=== PATIENT | male | born 1935 | race Two or more races ===

== ENCOUNTER 2016-10-30 07:21 | Inpatient (IN) | payer OTHER ==
[2016-10-30] MEDS ORDERED: FUROSEMIDE 40 MG/4 ML INJECTABLE VIAL IVPB ONE (07:54)
[2016-10-30] MEDS ORDERED: ASPIRIN 325 MG ENTERIC COATED TABLET (FP) PO ONE (07:57)
[2016-10-30] MEDS: NITROGLYCERIN 25MG/D5W 250ML 250 ML IVPB SCH ×2 (08:00→17:55)
[2016-10-30 08:02] VITALS: BMI 33.7
--- NOTE | 2016-10-30 08:03 | PDOC ---
History of Present Illness - General Chief Complaint: Pain Stated Complaint: ABD PAIN Time Seen by Provider: 10/30/16 07:49 History Source: Patient Exam Limitations: Language Barrier - History of Present Illness Initial Comments: 10/30/16 07:58 81 yo M with PMHx of CHF, HTN, CAD(s/p stents x2 2007), and Afib(on coumadin) presents with one week h/o increase shortness of breath. He states that for the past week he has become increasing short of breath to the point where he is SOB at rest. No alleviating factors and aggrivated by exertion and lying down. Accompanied by cough productive of white frothy sputum. His primary and cardiology docs are in [place].Denies CP, BHATTI, abd.pain, urinary symptoms, N/V. Timing/Duration: 1 week Severity: moderate Modifying Factors: improves with: rest Associated Symptoms: reports: cough Aspirin Received prior to arrival: Yes: unknown Past History - Travel Traveled outside of the country in the last 30 days: No Close contact w/someone who was outside of country & ill: No - Past Medical History Allergies/Adverse Reactions: Allergies Allergy/AdvReac Type Severity Reaction Status Date / Time No Known Allergies Allergy Verified 10/30/16 07:42 Home Medications: Ambulatory Orders Unobtainable [Unobtainable] 10/30/16 Cardiac Disorders: Yes CHF: Yes HTN: Yes - Surgical History Cardiac Surgery: Yes (stent) - Psycho/Social/Smoking Cessation Hx Anxiety: No Suicidal Ideation: No Smoking History: Never smoked Have you smoked in the past 12 months: No Information on smoking cessation initiated: No Hx Alcohol Use: No Drug/Substance Use Hx: No Substance Use Type: None Review of Systems - Review of Systems Able to Perform ROS?: Yes Is the patient limited Greek proficient: Yes Constitutional: No: Symptoms Reported HEENTM: No: Symptoms Reported Respiratory: Yes: Cough, Orthopnea, SOB with Exertion Cardiac (ROS): Yes: See HPI *Physical Exam - Vital Signs Last Vital Signs Temp Pulse Resp BP Pulse Ox 98.3 F 76 18 208/100 93 L 10/30/16 07:25 10/30/16 07:25 10/30/16 07:25 10/30/16 07:25 10/30/16 07:25 - Physical Exam General Appearance: Yes: Mild Distress HEENT: positive: EOMI, EDILMA Neck: positive: Supple Respiratory/Chest: positive: Decreased Breath Sounds, Crackles. negative: Wheezing Cardiovascular: positive: JVD, Tachycardia, Irregularly Irregular Vascular Pulses: Dorsalis-Pedis (R): 2+, Doralis-Pedis (L): 2+ Gastrointestinal/Abdominal: positive: Normal Bowel Sounds, Flat, Soft Integumentary: positive: Normal Color, Dry, Warm Neurologic: positive: Alert, Normal Mood/Affect Heart Score/ECG Review #1 General ECG Interpretation: Normal Intervals Compared to previous ECG there are: Previous ECG unavail 10/30/16 08:35 Normal Rate (afib at 71, LVH), Normal Intervals, No acute ischemic changes (ST strain pattern v4-v6, no ERIC) - ECG Intrepretation Rhythm: Irregularly Irregular - [place]: Normal - ECG Impressions Ischemic Changes: No ED Treatment Course - LABORATORY CBC & Chemistry Diagram: 10/30/16 08:06 10/30/16 08:06 Medical Decision Making - Medical Decision Making 10/30/16 08:24 81 yo M with PMHx of CHF, CAD(s/p stents x2 2007), and Afib(on coumadin) presents with acute exacerbation of CHF. Will order stat labs- cbc, cmp,ua, pt/ inr, trops. CXR ordered. r/o ACS and infection. ED MEDS- ASA, nitro drip 40mcg/min, Lasix 40 mg IV, supplemental O2 Plan- admit 10/30/16 09:02 Laboratory Tests 10/30/16 10/30/16 08:06 08:06 INR 1.39 H Creatinine 1.7 H Troponin I 1.68 H* B-Natriuretic Peptide 75499.50 H * First set of trops(+)- will start heparin drip * INR sub-therapeutic. * BNP elevated - confirms CHF * Cr elevated - no baseline -awaiting UA *DC/Admit/Observation/Transfer Diagnosis at time of Disposition: Elevated troponin level CHF (congestive heart failure) Qualifiers: Congestive heart failure type: unspecified congestive heart failure type Congestive heart failure chronicity: acute on chronic Qualified Code(s): I50.9 - Heart failure, unspecified - Discharge Dispostion Admit: Yes - Referrals Referrals: Artem Weiner [Primary Care Provider] -
--- NOTE | 2016-10-30 08:08 | PDOC ---
Attending Attestation - Resident Resident Name: Josh Montelongo - ED Attending Attestation I have performed the following: I have examined & evaluated the patient, The case was reviewed & discussed with the resident, I agree w/resident's findings & plan, Exceptions are as noted - HPI HPI: 10/30/16 08:07 81-year-old male with history of CAD status post stent in the past, possible CHF on Lasix, no known COPD presents with one week of progressive shortness of breath and intermittent chest pressure. - Physicial Exam PE: 10/30/16 08:08 Hypertensive, O2 sat 90-93% on 2 L, afebrile. Alert and speaking full sentences Positive JVD Bilateral, bibasilar crackles - Critical Care Time Total Critical Care Time: 30 Critical Care Statement: The care of this patient involved high complexity decision making to prevent further life threatening deterioration of the patient 's condition and/or to evalute & treat vital organ system(s) failure or risk of failure. - Medical Decision Making 10/30/16 08:26 Patient seen and evaluated with the resident. I agree with the overall evaluation, assessment, and management with the following summary of visit: 81-year-old male with history of hypertension and high cholesterol presents with progressive shortness of breath and chest pain most concerning for CHF exacerbation, rule out ACS. Age of fibrillation but rate controlled. Rule out underlying infectious process. Labs, EKG Chest x-ray Supplemental oxygen, nitroglycerin drip, diuresis, aspirin Admission 10/30/16 09:44 + troponin. started on hep gtt. Cardiology consulted, will admit to tele. Breathing much improved after O2 and nitro. VS improved, comfortable now. Heart Score/ECG Review #1 ECG reviewed & interpreted by me at: 07:42 General ECG Interpretation: Normal Rate (afib at 71, LVH), Normal Intervals, No acute ischemic changes (ST strain pattern v4-v6, no ERIC)
[2016-10-30] MEDS ORDERED: NITROGLYCERIN 25MG/D5W 250ML 250 ML IVPB ONE ×2 (08:10→17:54)
[2016-10-30] MEDS ORDERED: ASPIRIN 325 MG ENTERIC COATED TABLET (FP) ONE (08:10)
[2016-10-30] MEDS ORDERED: FUROSEMIDE 40 MG/4 ML INJECTABLE VIAL ONE ×2 (08:10→15:20)
[2016-10-30 08:15] LABS: BASOPHIL 0.8 % (0-2.0); EOSINOPHIL 0.3 % (0-4.5); MCH 27.7 pg (25.7-33.7); MCHC 32.5 g/dl (32.0-35.9); MEAN CELL VOLUME 85.1 fl (80-96); MEAN PLT VOLUME 9.1 fl (7.5-11.1); PLATELET COUNT 112 K/MM3 (134-434); RDW 15.3 % (11.9-15.9); WHITE BLOOD COUNT 6.9 K/mm3 (4.0-10.0)
[2016-10-30 08:28] LABS: INR 1.39 (0.82-1.09); PROTHROMBIN TIME (PATIENT) 15.4 SEC (9.98-11.88)
[2016-10-30 08:39] LABS: ALBUMIN 3.3 g/dl (3.4-5.0); BILIRUBIN,TOTAL 1.5 mg/dL (0.2-1.0); CALCIUM 8.2 mg/dL (8.5-10.1); COCKROFT - GAULT 37.18; CREATININE 1.7 mg/dL (0.7-1.3); TOT PROT 6.6 g/dl (6.4-8.2)
[2016-10-30 08:56] LABS: TROPONIN I 1.68 ng/ml (0.00-0.05)
[2016-10-30] MEDS ORDERED: HEPARIN NA (PORCINE) 5,000 UNITS/ML 1ML VIAL IVPUSH PRN ×2 (09:00)
[2016-10-30] MEDS ORDERED: HEPARIN INFUSION - 500 ML IVPB ONE (09:11)
[2016-10-30 09:12] LABS: URINE APPEARANCE CLEAR; URINE BILIRUBIN NEGATIVE (NEGATIVE); URINE BLOOD NEGATIVE (NEGATIVE); URINE COLOR COLORLESS; URINE GLUCOSE (UA) NEGATIVE (NEGATIVE); URINE KETONE NEGATIVE (NEGATIVE); URINE LEUK ESTERASE NEGATIVE (NEGATIVE); URINE NITRITE NEGATIVE (NEGATIVE); URINE UROBILINOGEN NEGATIVE E.U./dl (0.2-1.0)
[2016-10-30 09:16] LABS: URINE PROTEIN 1+ (NEGATIVE)
[2016-10-30] MEDS: HEPARIN INFUSION - 500 ML IVPB SCH (09:18)
--- NOTE | 2016-10-30 10:42 | CON.CARD ---
Consult Consult Specialty:: Cardiology Referred by:: Emergency Medicine Reason for Consultation:: Elevated troponins - History of Present Illness Chief Complaint: BRENNER, orthopnea History of Present Illness: 81 yo M with PMHx of CHF, HTN/HCVD, CAD(s/p stents x2 2008) persistent Afib(on coumadin) presents with one week h/o progressive exertional shortness of breath fatigue. He states that for the past week he has become increasing short of breath to the point where he is SOB at rest. Accompanied by cough productive of white frothy sputum. He also reports ortopnea, denies chest tightness, near or true syncope, PND, LE edema, dietary or medication indiscretion or NSAID use. His primary and cardiology docs are in [place]. - History Source History Provided By: Patient Limitations to Obtaining History: Language Barrier - Past Medical History Cardio/Vascular: Yes: AFIB, CAD, CHF, HTN - Past Surgical History Past Surgical History: Yes: Stent - Alcohol/Substance Use Hx Alcohol Use: No - Smoking History Smoking history: Never smoked Have you smoked in the past 12 months: No Home Medications - Allergies Allergies/Adverse Reactions: Allergies Allergy/AdvReac Type Severity Reaction Status Date / Time No Known Allergies Allergy Verified 10/30/16 07:42 - Home Medications Home Medications: Ambulatory Orders Unobtainable [Unobtainable] 10/30/16 Review of Systems - Review of Systems Respiratory: reports: Cough, Exercise Intolerance, Orthopnea, SOB on Exertion - Risk Factors Known Risk Factors: Yes: Age, Hypertension Vital Signs: Vital Signs Temperature 98.3 F 10/30/16 07:25 Pulse Rate 84 10/30/16 10:28 Respiratory Rate 20 10/30/16 09:33 Blood Pressure 141/87 10/30/16 10:28 O2 Sat by Pulse Oximetry (%) 3 L 10/30/16 10:28 Constitutional: Yes: No Distress, Calm Neck: Yes: Supple Respiratory: Yes: Regular, Diminished, On Nasal O2 Gastrointestinal: Yes: Normal Bowel Sounds, Soft Cardiovascular: Yes: Pulse Irregular JVD: No Carotid Bruit: No Heart Sounds: Yes: S1, S2 Murmur: Yes: Systolic Murmur, Grade 1 Edema: No - Other Data Labs, Other Data: INR, PTT INR 1.39 (0.82-1.09) H 10/30/16 08:06 NSR LVH with repol abnl Imaging - Results Chest X-ray: Report Reviewed (Pulm edema) Problem List - Problems (1) Acute on chronic diastolic CHF (congestive heart failure) Code(s): I50.33 - ACUTE ON CHRONIC DIASTOLIC (CONGESTIVE) HEART FAILURE (2) Subendocardial ischemia Code(s): I24.8 - OTHER FORMS OF ACUTE ISCHEMIC HEART DISEASE (3) Hypertensive cardiomyopathy Code(s): I11.9 - HYPERTENSIVE HEART DISEASE WITHOUT HEART FAILURE I42.9 - CARDIOMYOPATHY, UNSPECIFIED Qualifiers: Heart failure presence: with heart failure Qualified Code(s): I11.0 - Hypertensive heart disease with heart failure (4) Coronary artery disease Code(s): I25.10 - ATHSCL HEART DISEASE OF [place] CORONARY ARTERY W/O ANG PCTRS Qualifiers: Coronary Disease-Associated Artery/Lesion type: [place] artery [place] vs. transplanted heart: [place] heart Associated angina: without angina Qualified Code(s): I25.10 - Atherosclerotic heart disease of [place] coronary artery without angina pectoris (5) S/P coronary artery stent placement Code(s): Z95.5 - PRESENCE OF CORONARY ANGIOPLASTY IMPLANT AND GRAFT (6) Atrial fibrillation with controlled ventricular response Code(s): I48.91 - UNSPECIFIED ATRIAL FIBRILLATION (7) Acute kidney injury Code(s): N17.9 - ACUTE KIDNEY FAILURE, UNSPECIFIED Assessment/Plan 1. Acute on chronic diastolic failure with subendocardial ischemic injury 2. Hypertenion/HCVD 3. CAD s/p PCI (stent), andina pectoris 4. Persistent atrial fibrillation with subtherapeutic INR 5. YFN referable to #1 P:1. IV diuresis with monitor diuretic response, renal fxn and electrolytes 2. Start Diovan 80 qd, carvedilol 6.25 bid, wean NTG gtt as tolerated 3. Echocardiogram to assess LV and valve fxn, check TSH, lipid panel, trend trops to document peak 4. Heparin gtt->coumadin per INR 5. Thank you for consultative opportunity
[2016-10-30] MEDS: CARVEDILOL 6.25 MG TABLET (FP) PO SCH ×2 (11:14→22:15)
[2016-10-30] MEDS ORDERED: CARVEDILOL 3.125 MG TABLET (FP) ONE (11:15)
--- NOTE | 2016-10-30 11:20 | EKG ---
Test Reason : Blood Pressure : / mmHG Vent. Rate : 071 BPM Atrial Rate : 110 BPM P-R Int : 000 ms QRS Dur : 096 ms QT Int : 430 ms P-R-T Axes : 000 001 -40 degrees QTc Int : 467 ms ATRIAL FIBRILLATION MODERATE VOLTAGE CRITERIA FOR LVH, MAY BE NORMAL VARIANT INFERIOR INFARCT , AGE UNDETERMINED ABNORMAL ECG NO PREVIOUS ECGS AVAILABLE Confirmed by GENE CAMEJO MD ([id number]) on 10/30/2016 11:19:53 AM Referred By: Confirmed By:GENE CAMEJO MD
[2016-10-30] MEDS ORDERED: VALSARTAN 80 MG TABLET (UD) PO SCH (11:30)
[2016-10-30] MEDS ORDERED: ACETAMINOPHEN 500 MG TABLET (FP) PO ONE (14:58)
[2016-10-30] MEDS ORDERED: ACETAMINOPHEN 325 MG TABLET (FP) ONE ×2 (15:02→15:16)
[2016-10-30] MEDS: FUROSEMIDE 40 MG/4 ML INJECTABLE VIAL IVPB SCH (15:42)
[2016-10-30] MEDS ORDERED: WARFARIN NA 5 MG TABLET (UD) ONE (19:02)
[2016-10-30] MEDS: WARFARIN NA 5 MG TABLET (UD) PO SCH (19:04)
--- NOTE | 2016-10-30 19:43 | HP ---
Admitting History and Physical - Primary Care Physician PCP: Robert Daniels - Admission History of Present Illness: 81 yo M with PMHx of CHF, HTN/HCVD, CAD(s/p stents x2 2007) persistent Afib(on coumadin) presents with one week h/o progressive exertional shortness of breath fatigue. He states that for the past week he has become increasing short of breath to the point where he is SOB at rest. Accompanied by cough productive of white frothy sputum. He also reports orthopnea, denies chest tightness, near or true syncope, PND, LE edema. His primary and cardiology docs are in [place]. - Past Medical History Cardiovascular: Yes: AFIB, CAD, CHF, HTN - Past Surgical History Past Surgical History: Yes: Stent - Smoking History Smoking history: Never smoked Have you smoked in the past 12 months: No - Alcohol/Substance Use Hx Alcohol Use: No Home Medications - Allergies Allergies/Adverse Reactions: Allergies Allergy/AdvReac Type Severity Reaction Status Date / Time No Known Allergies Allergy Verified 10/30/16 07:42 - Home Medications Home Medications: Ambulatory Orders Unobtainable [Unobtainable] 10/30/16 Physical Examination Vital Signs: Vital Signs Temperature 98.3 F 10/30/16 07:25 Pulse Rate 56 L 10/30/16 17:24 Respiratory Rate 19 10/30/16 17:24 Blood Pressure 132/86 10/30/16 17:24 O2 Sat by Pulse Oximetry (%) 97 10/30/16 17:24 Constitutional: Yes: No Distress HENT: Yes: Atraumatic Neck: Yes: Supple Cardiovascular: Yes: Regular Rate and Rhythm Respiratory: Yes: Rhonchi Gastrointestinal: Yes: Normal Bowel Sounds Extremities: Yes: WNL Neurological: Yes: Alert, Oriented Problem List - Problems (1) Acute on chronic diastolic CHF (congestive heart failure) Assessment/Plan: on diuretics stable Code(s): I50.33 - ACUTE ON CHRONIC DIASTOLIC (CONGESTIVE) HEART FAILURE (2) Atrial fibrillation with controlled ventricular response Assessment/Plan: on coumadin fu inr Code(s): I48.91 - UNSPECIFIED ATRIAL FIBRILLATION (3) Coronary artery disease Code(s): I25.10 - ATHSCL HEART DISEASE OF [place] CORONARY ARTERY W/O ANG PCTRS Qualifiers: Coronary Disease-Associated Artery/Lesion type: [place] artery [place] vs. transplanted heart: [place] heart Associated angina: without angina Qualified Code(s): I25.10 - Atherosclerotic heart disease of [place] coronary artery without angina pectoris (4) Acute kidney injury Code(s): N17.9 - ACUTE KIDNEY FAILURE, UNSPECIFIED (5) CHF (congestive heart failure) Code(s): I50.9 - HEART FAILURE, UNSPECIFIED Qualifiers: Congestive heart failure type: unspecified congestive heart failure type Congestive heart failure chronicity: acute on chronic Qualified Code(s ): I50.9 - Heart failure, unspecified (6) Elevated troponin Assessment/Plan: fill follow up labs Code(s): R74.8 - ABNORMAL LEVELS OF OTHER SERUM ENZYMES (7) Hypertensive cardiomyopathy Code(s): I11.9 - HYPERTENSIVE HEART DISEASE WITHOUT HEART FAILURE I42.9 - CARDIOMYOPATHY, UNSPECIFIED Qualifiers: Heart failure presence: with heart failure Qualified Code(s): I11.0 - Hypertensive heart disease with heart failure (8) S/P coronary artery stent placement Code(s): Z95.5 - PRESENCE OF CORONARY ANGIOPLASTY IMPLANT AND GRAFT (9) Subendocardial ischemia Assessment/Plan: elevated troponin possible demand ischemia Code(s): I24.8 - OTHER FORMS OF ACUTE ISCHEMIC HEART DISEASE Assessment/Plan Laboratory Tests 10/30/16 10/30/16 10/30/16 08:06 08:06 08:06 WBC 6.9 RBC 4.50 Hgb 12.5 Hct 38.3 MCV 85.1 MCHC 32.5 RDW 15.3 Plt Count 112 L MPV 9.1 Neutrophils % 66.0 Lymphocytes % 19.3 Monocytes % 13.6 H Eosinophils % 0.3 Basophils % 0.8 INR 1.39 H PTT (Actin FS) Sodium Potassium Chloride Carbon Dioxide Anion Gap BUN Creatinine Creat Clearance w eGFR Random Glucose Calcium Magnesium Total Bilirubin AST ALT Alkaline Phosphatase Creatine Kinase Creatine Kinase Index CK-MB (CK-2) CK-MB (CK-2) Rel Index Troponin I B-Natriuretic Peptide Total Protein Albumin Urine Color Colorless Urine Appearance Clear Urine pH 7.0 Ur Specific [place] 1.005 Urine Protein 1+ H Urine Glucose (UA) Negative Urine Ketones Negative Urine Blood Negative Urine Nitrite Negative Urine Bilirubin Negative Urine Urobilinogen Negative Ur Leukocyte Esterase Negative 10/30/16 10/30/16 10/30/16 08:06 08:06 08:06 WBC RBC Hgb Hct MCV MCHC RDW Plt Count MPV Neutrophils % Lymphocytes % Monocytes % Eosinophils % Basophils % INR PTT (Actin FS) Sodium 142 Potassium 3.6 Chloride 107 Carbon Dioxide 22 Anion Gap 13 BUN 16 Creatinine 1.7 H Creat Clearance w eGFR 38.78 Random Glucose 116 H Calcium 8.2 L Magnesium 2.0 Total Bilirubin 1.5 H AST 54 H ALT 111 H Alkaline Phosphatase 137 H Creatine Kinase 158 Creatine Kinase Index 1.1 CK-MB (CK-2) 1.709 CK-MB (CK-2) Rel Index Cancelled Troponin I 1.68 H* Cancelled B-Natriuretic Peptide 89289.50 H Total Protein 6.6 Albumin 3.3 L Urine Color Urine Appearance Urine pH Ur Specific [place] Urine Protein Urine Glucose (UA) Urine Ketones Urine Blood Urine Nitrite Urine Bilirubin Urine Urobilinogen Ur Leukocyte Esterase 10/30/16 10/30/16 10/30/16 09:00 14:15 14:15 WBC RBC Hgb Hct MCV MCHC RDW Plt Count MPV Neutrophils % Lymphocytes % Monocytes % Eosinophils % Basophils % INR PTT (Actin FS) 34.4 59.5 H D Sodium Potassium Chloride Carbon Dioxide Anion Gap BUN Creatinine Creat Clearance w eGFR Random Glucose Calcium Magnesium Total Bilirubin AST ALT Alkaline Phosphatase Creatine Kinase Creatine Kinase Index CK-MB (CK-2) CK-MB (CK-2) Rel Index Troponin I 1.59 H* B-Natriuretic Peptide Total Protein Albumin Urine Color Urine Appearance Urine pH Ur Specific [place] Urine Protein Urine Glucose (UA) Urine Ketones Urine Blood Urine Nitrite Urine Bilirubin Urine Urobilinogen Ur Leukocyte Esterase Active Medications Generic Name Dose Route Start Last Admin Trade Name Freq PRN Reason Stop Dose Admin Carvedilol 6.25 mg 10/30/16 11:00 10/30/16 11:14 Coreg - PO 6.25 mg BID TORIN Administration Furosemide 40 mg 10/30/16 14:00 10/30/16 15:42 Lasix Injection - IVPB 40 mg BID@0600,1400 TORIN Administration Heparin Sodium (Porcine) 1,000 unit 10/30/16 09:00 Heparin - IVPUSH PRN PRN Heparin Heparin Sodium (Porcine) 5,000 unit 10/30/16 09:00 Heparin - IVPUSH PRN PRN Heparin Nitroglycerin/Dextrose 250 mls @ 24 mls/hr 10/30/16 08:00 10/30/16 17:55 Nitroglycerin 25mg/D5w 250ml IVPB 24 mls/hr TITR TORIN Administration 40 MCG/MIN Heparin Sodium/Dextrose 500 mls @ 20 mls/hr 10/30/16 09:00 10/30/16 09:18 Heparin Infusion - IVPB 20 mls/hr TITR TORIN Administration Protocol 1,000 UNITS/HR Valsartan 80 mg 10/30/16 11:30 10/30/16 11:19 Diovan - PO 80 mg DAILY TORIN Administration Warfarin Sodium 5 mg 10/30/16 18:00 10/30/16 19:04 Coumadin - PO 5 mg DAILY@1800 TORIN Administration
[2016-10-31] MEDS: HEPARIN INFUSION - 500 ML IVPB SCH ×2 (06:27→11:12)
[2016-10-31] MEDS: FUROSEMIDE 40 MG/4 ML INJECTABLE VIAL IVPB SCH ×2 (06:28→14:40)
[2016-10-31] MEDS: NITROGLYCERIN 25MG/D5W 250ML 250 ML IVPB SCH (07:55)
--- NOTE | 2016-10-31 08:53 | PN ---
Progress Note, Physician History of Present Illness: Dyspnea improved with diuresis of 4 lbs, BP control improved. - Current Medication List Current Medications: Active Medications Carvedilol (Coreg -) 6.25 mg PO BID [facility] Last Admin: 10/30/16 22:15 Dose: 6.25 mg Furosemide (Lasix Injection -) 40 mg IVPB BID@0600,1400 [facility] Last Admin: 10/31/16 06:28 Dose: 40 mg Heparin Sodium (Porcine) (Heparin -) 1,000 unit IVPUSH PRN PRN PRN Reason: Heparin Heparin Sodium (Porcine) (Heparin -) 5,000 unit IVPUSH PRN PRN PRN Reason: Heparin Nitroglycerin/Dextrose (Nitroglycerin 25mg/D5w 250ml) 250 mls @ 24 mls/hr IVPB TITR TORIN PRN Reason: 40 MCG/MIN Last Admin: 10/30/16 17:55 Dose: 24 mls/hr Heparin Sodium/Dextrose (Heparin Infusion -) 500 mls @ 20 mls/hr IVPB TITR TORIN ; 1,000 UNITS/HR PRN Reason: Protocol Last Admin: 10/31/16 06:27 Dose: 20 mls/hr Valsartan (Diovan -) 80 mg PO DAILY [facility] Last Admin: 10/30/16 11:19 Dose: 80 mg Warfarin Sodium (Coumadin -) 5 mg PO DAILY@1800 [facility] Last Admin: 10/30/16 19:04 Dose: 5 mg - Objective Vital Signs: Vital Signs Temperature 99.1 F 10/31/16 06:00 Pulse Rate 74 10/31/16 06:00 Respiratory Rate 19 10/31/16 06:00 Blood Pressure 122/78 10/31/16 06:00 O2 Sat by Pulse Oximetry (%) 94 L 10/31/16 03:43 Constitutional: Yes: No Distress, Calm Neck: Yes: Supple Cardiovascular: Yes: Pulse Irregular Respiratory: Yes: Regular, Diminished, On Nasal O2 Gastrointestinal: Yes: Normal Bowel Sounds, Soft Edema: No Labs: INR, PTT INR 1.39 (0.82-1.09) H 10/30/16 08:06 - ....Imaging EKG: Report Reviewed (Tele: Afib PVC) Problem List - Problems (1) Acute on chronic diastolic CHF (congestive heart failure) Code(s): I50.33 - ACUTE ON CHRONIC DIASTOLIC (CONGESTIVE) HEART FAILURE (2) Subendocardial ischemia Code(s): I24.8 - OTHER FORMS OF ACUTE ISCHEMIC HEART DISEASE (3) Hypertensive cardiomyopathy Code(s): I11.9 - HYPERTENSIVE HEART DISEASE WITHOUT HEART FAILURE I42.9 - CARDIOMYOPATHY, UNSPECIFIED Qualifiers: Heart failure presence: with heart failure Qualified Code(s): I11.0 - Hypertensive heart disease with heart failure (4) Coronary artery disease Code(s): I25.10 - ATHSCL HEART DISEASE OF [place] CORONARY ARTERY W/O ANG PCTRS Qualifiers: Coronary Disease-Associated Artery/Lesion type: [place] artery [place] vs. transplanted heart: [place] heart Associated angina: without angina Qualified Code(s): I25.10 - Atherosclerotic heart disease of [place] coronary artery without angina pectoris (5) S/P coronary artery stent placement Code(s): Z95.5 - PRESENCE OF CORONARY ANGIOPLASTY IMPLANT AND GRAFT (6) Atrial fibrillation with controlled ventricular response Code(s): I48.91 - UNSPECIFIED ATRIAL FIBRILLATION (7) Acute kidney injury Code(s): N17.9 - ACUTE KIDNEY FAILURE, UNSPECIFIED Assessment/Plan 10/30/2016 Echo: Mild decreased LV fxn, mod MR, mild AR, severe TR 1. Acute on chronic diastolic failure with subendocardial ischemic injury improving 2. Hypertenion/HCVD 3. CAD s/p PCI (stent), andina pectoris 4. Persistent atrial fibrillation with subtherapeutic INR 5. YFN referable to #1 6. Elevated LFTs referable to hepatic congestion improving P:1. Lasix 40 IV bid with monitor diuretic response, renal fxn and electrolytes 2. Increase Diovan 160 qd, carvedilol 6.25 bid, wean off NTG gtt as tolerated 3. Check TSH, lipid panel, trend trops to document peak 4. Heparin gtt->coumadin per INR
[2016-10-31 08:58] LABS: ALBUMIN 2.9 g/dl (3.4-5.0); BILIRUBIN,DIRECT 0.4 mg/dL (0.0-0.2); BILIRUBIN,TOTAL 1.6 mg/dL (0.2-1.0)
[2016-10-31 09:15] LABS: CALCIUM 7.8 mg/dL (8.5-10.1); COCKROFT - GAULT 38.59; CREATININE 1.6 mg/dL (0.7-1.3)
[2016-10-31 09:33] LABS: INR 1.46 (0.82-1.09); PROTHROMBIN TIME (PATIENT) 16.2 SEC (9.98-11.88)
[2016-10-31] MEDS: CARVEDILOL 6.25 MG TABLET (FP) PO SCH ×2 (10:15→21:19)
[2016-10-31] MEDS: VALSARTAN 80 MG TABLET (UD) PO SCH (11:12)
[2016-10-31 11:50] LABS: THYROID STIMULATING HORMONE 0.73 uIU/ml (0.358-3.74)
[2016-10-31] MEDS ORDERED: POTASSIUM CHLORIDE TABS 20 MEQ TABLET.ER (FP) PO ONE (12:00)
[2016-10-31] MEDS: KCL 10 MEQ IVPB 100 ML IVPB SCH ×2 (12:52→14:39)
[2016-10-31] MEDS: WARFARIN NA 5 MG TABLET (UD) PO SCH (17:35)
--- NOTE | 2016-10-31 19:18 | PN ---
Progress Note, Physician History of Present Illness: no complaints - Current Medication List Current Medications: Active Medications Carvedilol (Coreg -) 6.25 mg PO BID [facility] Last Admin: 10/31/16 10:15 Dose: 6.25 mg Furosemide (Lasix Injection -) 40 mg IVPB BID@0600,1400 [facility] Last Admin: 10/31/16 14:40 Dose: 40 mg Heparin Sodium (Porcine) (Heparin -) 1,000 unit IVPUSH PRN PRN PRN Reason: Heparin Heparin Sodium (Porcine) (Heparin -) 5,000 unit IVPUSH PRN PRN PRN Reason: Heparin Heparin Sodium/Dextrose (Heparin Infusion -) 500 mls @ 20 mls/hr IVPB TITR TORIN ; 1,000 UNITS/HR PRN Reason: Protocol Last Admin: 10/31/16 11:12 Dose: 20 mls/hr Valsartan (Diovan -) 160 mg PO DAILY [facility] Last Admin: 10/31/16 11:12 Dose: 160 mg Warfarin Sodium (Coumadin -) 5 mg PO DAILY@1800 [facility] Last Admin: 10/31/16 17:35 Dose: 5 mg - Objective Vital Signs: Vital Signs Temperature 98.9 F 10/31/16 14:00 Pulse Rate 76 10/31/16 14:00 Respiratory Rate 16 10/31/16 14:00 Blood Pressure 146/76 10/31/16 14:00 O2 Sat by Pulse Oximetry (%) 92 L 10/31/16 11:00 Constitutional: Yes: No Distress HENT: Yes: Atraumatic Neck: Yes: Supple Cardiovascular: Yes: Regular Rate and Rhythm Respiratory: Yes: CTA Bilaterally Gastrointestinal: Yes: Normal Bowel Sounds Extremities: Yes: WNL Neurological: Yes: Alert, Oriented Labs: INR, PTT INR 1.46 (0.82-1.09) H 10/31/16 06:10 Problem List - Problems (1) Acute on chronic diastolic CHF (congestive heart failure) Assessment/Plan: on diuretics stable Code(s): I50.33 - ACUTE ON CHRONIC DIASTOLIC (CONGESTIVE) HEART FAILURE (2) Atrial fibrillation with controlled ventricular response Assessment/Plan: on coumadin fu inr Code(s): I48.91 - UNSPECIFIED ATRIAL FIBRILLATION (3) Coronary artery disease Code(s): I25.10 - ATHSCL HEART DISEASE OF [place] CORONARY ARTERY W/O ANG PCTRS Qualifiers: Coronary Disease-Associated Artery/Lesion type: [place] artery [place] vs. transplanted heart: [place] heart Associated angina: without angina Qualified Code(s): I25.10 - Atherosclerotic heart disease of [place] coronary artery without angina pectoris (4) Acute kidney injury Code(s): N17.9 - ACUTE KIDNEY FAILURE, UNSPECIFIED (5) CHF (congestive heart failure) Code(s): I50.9 - HEART FAILURE, UNSPECIFIED Qualifiers: Congestive heart failure type: unspecified congestive heart failure type Congestive heart failure chronicity: acute on chronic Qualified Code(s ): I50.9 - Heart failure, unspecified (6) Elevated troponin Code(s): R74.8 - ABNORMAL LEVELS OF OTHER SERUM ENZYMES (7) Hypertensive cardiomyopathy Code(s): I11.9 - HYPERTENSIVE HEART DISEASE WITHOUT HEART FAILURE I42.9 - CARDIOMYOPATHY, UNSPECIFIED Qualifiers: Heart failure presence: with heart failure Qualified Code(s): I11.0 - Hypertensive heart disease with heart failure (8) S/P coronary artery stent placement Code(s): Z95.5 - PRESENCE OF CORONARY ANGIOPLASTY IMPLANT AND GRAFT (9) Subendocardial ischemia Assessment/Plan: elevated troponin possible demand ischemia Code(s): I24.8 - OTHER FORMS OF ACUTE ISCHEMIC HEART DISEASE Assessment/Plan
[2016-11-01] MEDS: FUROSEMIDE 40 MG/4 ML INJECTABLE VIAL IVPB SCH (06:32)
[2016-11-01 07:04] LABS: MCH 27.6 pg (25.7-33.7); MCHC 32.9 g/dl (32.0-35.9); MEAN CELL VOLUME 83.9 fl (80-96); MEAN PLT VOLUME 9.6 fl (7.5-11.1); PLATELET COUNT 110 K/MM3 (134-434); RDW 15.1 % (11.9-15.9); WHITE BLOOD COUNT 4.7 K/mm3 (4.0-10.0)
--- NOTE | 2016-11-01 09:15 | PN ---
Progress Note, Physician History of Present Illness: Dyspnea resolved with diuresis of 7 lbs, BP control improved. - Current Medication List Current Medications: Active Medications Carvedilol (Coreg -) 6.25 mg PO BID [facility] Last Admin: 10/31/16 21:19 Dose: 6.25 mg Furosemide (Lasix Injection -) 40 mg IVPB BID@0600,1400 [facility] Last Admin: 11/01/16 06:32 Dose: 40 mg Heparin Sodium (Porcine) (Heparin -) 1,000 unit IVPUSH PRN PRN PRN Reason: Heparin Heparin Sodium (Porcine) (Heparin -) 5,000 unit IVPUSH PRN PRN PRN Reason: Heparin Heparin Sodium/Dextrose (Heparin Infusion -) 500 mls @ 20 mls/hr IVPB TITR TORIN ; 1,000 UNITS/HR PRN Reason: Protocol Last Admin: 10/31/16 11:12 Dose: 20 mls/hr Valsartan (Diovan -) 160 mg PO DAILY [facility] Last Admin: 10/31/16 11:12 Dose: 160 mg Warfarin Sodium (Coumadin -) 5 mg PO DAILY@1800 [facility] Last Admin: 10/31/16 17:35 Dose: 5 mg - Objective Vital Signs: Vital Signs Temperature 97.6 F 11/01/16 06:00 Pulse Rate 63 11/01/16 06:00 Respiratory Rate 20 11/01/16 06:00 Blood Pressure 144/73 11/01/16 06:00 O2 Sat by Pulse Oximetry (%) 96 10/31/16 21:00 Constitutional: Yes: No Distress, Calm Neck: Yes: Supple Cardiovascular: Yes: Bradycardia, Pulse Irregular Respiratory: Yes: Regular, Diminished Gastrointestinal: Yes: Normal Bowel Sounds, Soft Edema: No Labs: CBC, BMP 11/01/16 05:35 INR, PTT INR 1.46 (0.82-1.09) H 10/31/16 06:10 Problem List - Problems (1) Acute on chronic diastolic CHF (congestive heart failure) Code(s): I50.33 - ACUTE ON CHRONIC DIASTOLIC (CONGESTIVE) HEART FAILURE (2) Subendocardial ischemia Code(s): I24.8 - OTHER FORMS OF ACUTE ISCHEMIC HEART DISEASE (3) Hypertensive cardiomyopathy Code(s): I11.9 - HYPERTENSIVE HEART DISEASE WITHOUT HEART FAILURE I42.9 - CARDIOMYOPATHY, UNSPECIFIED Qualifiers: Heart failure presence: with heart failure Qualified Code(s): I11.0 - Hypertensive heart disease with heart failure (4) Coronary artery disease Code(s): I25.10 - ATHSCL HEART DISEASE OF [place] CORONARY ARTERY W/O ANG PCTRS Qualifiers: Coronary Disease-Associated Artery/Lesion type: [place] artery [place] vs. transplanted heart: [place] heart Associated angina: without angina Qualified Code(s): I25.10 - Atherosclerotic heart disease of [place] coronary artery without angina pectoris (5) S/P coronary artery stent placement Code(s): Z95.5 - PRESENCE OF CORONARY ANGIOPLASTY IMPLANT AND GRAFT (6) Atrial fibrillation with controlled ventricular response Code(s): I48.91 - UNSPECIFIED ATRIAL FIBRILLATION (7) Acute kidney injury Code(s): N17.9 - ACUTE KIDNEY FAILURE, UNSPECIFIED Assessment/Plan 10/30/2016 Echo: Mild decreased LV fxn, mod MR, mild AR, severe TR 1. Acute on chronic diastolic failure with subendocardial ischemic injury resolved 2. Hypertenion/HCVD 3. CAD s/p PCI (stent), angina pectoris 4. Persistent atrial fibrillation with subtherapeutic INR 5. YFN referable to #1 improving 6. Elevated LFTs referable to hepatic congestion resolved P:1. Decrease Lasix 20 po qd with monitor diuretic response, renal fxn and electrolytes, replete K 2. Continue Diovan 160 qd, carvedilol 6.25 bid 3. Trops have peaked 4. Heparin gtt->coumadin per INR
[2016-11-01] MEDS ORDERED: POTASSIUM CHLORIDE ORAL LIQUID 20 MEQ/15 ML PO ONE (09:45)
[2016-11-01] MEDS: FUROSEMIDE 20 MG TABLET (FP) PO SCH (10:19)
[2016-11-01] MEDS: CARVEDILOL 6.25 MG TABLET (FP) PO SCH ×2 (10:19→21:24)
[2016-11-01] MEDS: VALSARTAN 80 MG TABLET (UD) PO SCH (10:19)
[2016-11-01] MEDS: HEPARIN INFUSION - 500 ML IVPB SCH (10:20)
[2016-11-01 10:55] LABS: INR 1.5 (0.82-1.09); PROTHROMBIN TIME (PATIENT) 16.6 SEC (9.98-11.88)
[2016-11-01] MEDS: WARFARIN NA 5 MG TABLET (UD) PO SCH (17:52)
--- NOTE | 2016-11-01 18:56 | PN ---
Progress Note, Physician History of Present Illness: no complaints - Current Medication List Current Medications: Active Medications Carvedilol (Coreg -) 6.25 mg PO BID [facility] Last Admin: 11/01/16 10:19 Dose: 6.25 mg Furosemide (Lasix -) 20 mg PO DAILY [facility] Last Admin: 11/01/16 10:19 Dose: 20 mg Heparin Sodium (Porcine) (Heparin -) 1,000 unit IVPUSH PRN PRN PRN Reason: Heparin Heparin Sodium (Porcine) (Heparin -) 5,000 unit IVPUSH PRN PRN PRN Reason: Heparin Heparin Sodium/Dextrose (Heparin Infusion -) 500 mls @ 20 mls/hr IVPB TITR TORIN ; 1,000 UNITS/HR PRN Reason: Protocol Last Admin: 11/01/16 10:20 Dose: 20 mls/hr Valsartan (Diovan -) 160 mg PO DAILY [facility] Last Admin: 11/01/16 10:19 Dose: 160 mg Warfarin Sodium (Coumadin -) 5 mg PO DAILY@1800 [facility] Last Admin: 11/01/16 17:52 Dose: 5 mg - Objective Vital Signs: Vital Signs Temperature 98.6 F 11/01/16 13:58 Pulse Rate 61 11/01/16 13:58 Respiratory Rate 16 11/01/16 13:58 Blood Pressure 125/59 11/01/16 13:58 O2 Sat by Pulse Oximetry (%) 95 11/01/16 09:00 Constitutional: Yes: No Distress HENT: Yes: Atraumatic Neck: Yes: Supple Cardiovascular: Yes: Regular Rate and Rhythm Respiratory: Yes: CTA Bilaterally Gastrointestinal: Yes: Normal Bowel Sounds Extremities: Yes: WNL Neurological: Yes: Alert, Oriented Labs: CBC, BMP 11/01/16 05:35 INR, PTT INR 1.50 (0.82-1.09) H 11/01/16 05:35 Problem List - Problems (1) Acute on chronic diastolic CHF (congestive heart failure) Assessment/Plan: on diuretics stable Code(s): I50.33 - ACUTE ON CHRONIC DIASTOLIC (CONGESTIVE) HEART FAILURE (2) Atrial fibrillation with controlled ventricular response Assessment/Plan: on coumadin fu inr Code(s): I48.91 - UNSPECIFIED ATRIAL FIBRILLATION (3) Coronary artery disease Code(s): I25.10 - ATHSCL HEART DISEASE OF [place] CORONARY ARTERY W/O ANG PCTRS Qualifiers: Coronary Disease-Associated Artery/Lesion type: [place] artery [place] vs. transplanted heart: [place] heart Associated angina: without angina Qualified Code(s): I25.10 - Atherosclerotic heart disease of [place] coronary artery without angina pectoris (4) Acute kidney injury Code(s): N17.9 - ACUTE KIDNEY FAILURE, UNSPECIFIED (5) CHF (congestive heart failure) Code(s): I50.9 - HEART FAILURE, UNSPECIFIED Qualifiers: Congestive heart failure type: unspecified congestive heart failure type Congestive heart failure chronicity: acute on chronic Qualified Code(s): I50.9 - Heart failure, unspecified (6) Elevated troponin Code(s): R74.8 - ABNORMAL LEVELS OF OTHER SERUM ENZYMES (7) Hypertensive cardiomyopathy Code(s): I11.9 - HYPERTENSIVE HEART DISEASE WITHOUT HEART FAILURE I42.9 - CARDIOMYOPATHY, UNSPECIFIED Qualifiers: Heart failure presence: with heart failure Qualified Code(s): I11.0 - Hypertensive heart disease with heart failure (8) S/P coronary artery stent placement Code(s): Z95.5 - PRESENCE OF CORONARY ANGIOPLASTY IMPLANT AND GRAFT (9) Subendocardial ischemia Code(s): I24.8 - OTHER FORMS OF ACUTE ISCHEMIC HEART DISEASE
[2016-11-01] MEDS ORDERED: ACETAMINOPHEN 325 MG TABLET (FP) PO PRN (22:33)
[2016-11-02 07:58] LABS: MCH 27.9 pg (25.7-33.7); MCHC 33.5 g/dl (32.0-35.9); MEAN CELL VOLUME 83.3 fl (80-96); MEAN PLT VOLUME 9.6 fl (7.5-11.1); PLATELET COUNT 130 K/MM3 (134-434); RDW 15.3 % (11.9-15.9); WHITE BLOOD COUNT 4.5 K/mm3 (4.0-10.0)
[2016-11-02] MEDS: HEPARIN INFUSION - 500 ML IVPB SCH (09:00)
--- NOTE | 2016-11-02 10:10 | PN ---
Progress Note, Physician History of Present Illness: Dyspnea resolved with diuresis of 7.5 lbs, BP still elevated. - Current Medication List Current Medications: Active Medications Acetaminophen (Tylenol -) 650 mg PO Q6H PRN PRN Reason: FEVER OR PAIN Carvedilol (Coreg -) 6.25 mg PO BID [facility] Last Admin: 11/01/16 21:24 Dose: 6.25 mg Furosemide (Lasix -) 20 mg PO DAILY [facility] Last Admin: 11/01/16 10:19 Dose: 20 mg Heparin Sodium (Porcine) (Heparin -) 1,000 unit IVPUSH PRN PRN PRN Reason: Heparin Heparin Sodium (Porcine) (Heparin -) 5,000 unit IVPUSH PRN PRN PRN Reason: Heparin Heparin Sodium/Dextrose (Heparin Infusion -) 500 mls @ 20 mls/hr IVPB TITR TORIN ; 1,000 UNITS/HR PRN Reason: Protocol Last Admin: 11/01/16 10:20 Dose: 20 mls/hr Valsartan (Diovan -) 160 mg PO DAILY [facility] Last Admin: 11/01/16 10:19 Dose: 160 mg Warfarin Sodium (Coumadin -) 5 mg PO DAILY@1800 [facility] Last Admin: 11/01/16 17:52 Dose: 5 mg - Objective Vital Signs: Vital Signs Temperature 98.1 F 11/02/16 08:01 Pulse Rate 51 L 11/02/16 08:01 Respiratory Rate 20 11/02/16 08:01 Blood Pressure 162/93 11/02/16 08:01 O2 Sat by Pulse Oximetry (%) 96 11/01/16 21:00 Constitutional: Yes: No Distress, Calm Neck: Yes: Supple Cardiovascular: Yes: Pulse Irregular Respiratory: Yes: Regular, Diminished Gastrointestinal: Yes: Normal Bowel Sounds, Soft Edema: No Labs: CBC, BMP 11/02/16 05:35 INR, PTT INR 1.50 (0.82-1.09) H 11/01/16 05:35 Problem List - Problems (1) Acute on chronic diastolic CHF (congestive heart failure) Code(s): I50.33 - ACUTE ON CHRONIC DIASTOLIC (CONGESTIVE) HEART FAILURE (2) Subendocardial ischemia Code(s): I24.8 - OTHER FORMS OF ACUTE ISCHEMIC HEART DISEASE (3) Hypertensive cardiomyopathy Code(s): I11.9 - HYPERTENSIVE HEART DISEASE WITHOUT HEART FAILURE I42.9 - CARDIOMYOPATHY, UNSPECIFIED Qualifiers: Heart failure presence: with heart failure Qualified Code(s): I11.0 - Hypertensive heart disease with heart failure (4) Coronary artery disease Code(s): I25.10 - ATHSCL HEART DISEASE OF [place] CORONARY ARTERY W/O ANG PCTRS Qualifiers: Coronary Disease-Associated Artery/Lesion type: [place] artery [place] vs. transplanted heart: [place] heart Associated angina: without angina Qualified Code(s): I25.10 - Atherosclerotic heart disease of [place] coronary artery without angina pectoris (5) S/P coronary artery stent placement Code(s): Z95.5 - PRESENCE OF CORONARY ANGIOPLASTY IMPLANT AND GRAFT (6) Atrial fibrillation with controlled ventricular response Code(s): I48.91 - UNSPECIFIED ATRIAL FIBRILLATION (7) Acute kidney injury Code(s): N17.9 - ACUTE KIDNEY FAILURE, UNSPECIFIED Assessment/Plan 10/30/2016 Echo: Mild decreased LV fxn, mod MR, mild AR, severe TR 1. Acute on chronic diastolic failure with subendocardial ischemic injury resolved 2. Hypertenion/HCVD, BP not at goal 3. CAD s/p PCI (stent), angina pectoris 4. Persistent atrial fibrillation with subtherapeutic INR 5. YFN referable to #1 improving 6. Elevated LFTs referable to hepatic congestion resolved P:1. Change Lasix to Aldactone 25 qd with monitor diuretic response, renal fxn and electrolytes, replete K 2. Continue Diovan 160 qd, carvedilol 6.25 bid 3. Trops have peaked 4. Heparin gtt->coumadin per INR
[2016-11-02] MEDS: CARVEDILOL 6.25 MG TABLET (FP) PO SCH ×2 (11:57→21:34)
[2016-11-02] MEDS: VALSARTAN 80 MG TABLET (UD) PO SCH (11:58)
[2016-11-02] MEDS: SPIRONOLACTONE 25 MG TABLET (FP) PO SCH (11:58)
[2016-11-02] MEDS: FUROSEMIDE 20 MG TABLET (FP) PO SCH (16:43)
[2016-11-02] MEDS: WARFARIN NA 5 MG TABLET (UD) PO SCH (17:40)
--- NOTE | 2016-11-02 19:09 | PN ---
Progress Note, Physician History of Present Illness: no complaints - Current Medication List Current Medications: Active Medications Acetaminophen (Tylenol -) 650 mg PO Q6H PRN PRN Reason: FEVER OR PAIN Carvedilol (Coreg -) 6.25 mg PO BID [facility] Last Admin: 11/02/16 11:57 Dose: 6.25 mg Heparin Sodium (Porcine) (Heparin -) 1,000 unit IVPUSH PRN PRN PRN Reason: Heparin Heparin Sodium (Porcine) (Heparin -) 5,000 unit IVPUSH PRN PRN PRN Reason: Heparin Heparin Sodium/Dextrose (Heparin Infusion -) 500 mls @ 20 mls/hr IVPB TITR TORIN ; 1,000 UNITS/HR PRN Reason: Protocol Last Admin: 11/02/16 09:00 Dose: 19 mls/hr Spironolactone (Aldactone -) 25 mg PO DAILY [facility] Last Admin: 11/02/16 11:58 Dose: 25 mg Valsartan (Diovan -) 160 mg PO DAILY [facility] Last Admin: 11/02/16 11:58 Dose: 160 mg Warfarin Sodium (Coumadin -) 5 mg PO DAILY@1800 [facility] Last Admin: 11/02/16 17:40 Dose: 5 mg - Objective Vital Signs: Vital Signs Temperature 98.3 F 11/02/16 16:01 Pulse Rate 49 L 11/02/16 16:01 Respiratory Rate 20 11/02/16 16:01 Blood Pressure 134/71 11/02/16 16:01 O2 Sat by Pulse Oximetry (%) 97 11/02/16 09:00 Constitutional: Yes: No Distress HENT: Yes: Atraumatic Neck: Yes: Supple Cardiovascular: Yes: Regular Rate and Rhythm Respiratory: Yes: CTA Bilaterally Gastrointestinal: Yes: Normal Bowel Sounds Extremities: Yes: WNL Neurological: Yes: Alert, Oriented Labs: CBC, BMP 11/02/16 05:35 INR, PTT INR 1.50 (0.82-1.09) H 11/01/16 05:35 Problem List - Problems (1) Acute on chronic diastolic CHF (congestive heart failure) Assessment/Plan: on diuretics stable Code(s): I50.33 - ACUTE ON CHRONIC DIASTOLIC (CONGESTIVE) HEART FAILURE (2) Atrial fibrillation with controlled ventricular response Assessment/Plan: on coumadin fu inr Code(s): I48.91 - UNSPECIFIED ATRIAL FIBRILLATION (3) Coronary artery disease Code(s): I25.10 - ATHSCL HEART DISEASE OF [place] CORONARY ARTERY W/O ANG PCTRS Qualifiers: Coronary Disease-Associated Artery/Lesion type: [place] artery [place] vs. transplanted heart: [place] heart Associated angina: without angina Qualified Code(s): I25.10 - Atherosclerotic heart disease of [place] coronary artery without angina pectoris (4) Acute kidney injury Code(s): N17.9 - ACUTE KIDNEY FAILURE, UNSPECIFIED (5) CHF (congestive heart failure) Code(s): I50.9 - HEART FAILURE, UNSPECIFIED Qualifiers: Congestive heart failure type: unspecified congestive heart failure type Congestive heart failure chronicity: acute on chronic Qualified Code(s ): I50.9 - Heart failure, unspecified (6) Elevated troponin Assessment/Plan: fill follow up labs Code(s): R74.8 - ABNORMAL LEVELS OF OTHER SERUM ENZYMES (7) Hypertensive cardiomyopathy Code(s): I11.9 - HYPERTENSIVE HEART DISEASE WITHOUT HEART FAILURE I42.9 - CARDIOMYOPATHY, UNSPECIFIED Qualifiers: Heart failure presence: with heart failure Qualified Code(s): I11.0 - Hypertensive heart disease with heart failure (8) S/P coronary artery stent placement Code(s): Z95.5 - PRESENCE OF CORONARY ANGIOPLASTY IMPLANT AND GRAFT (9) Subendocardial ischemia Assessment/Plan: elevated troponin Code(s): I24.8 - OTHER FORMS OF ACUTE ISCHEMIC HEART DISEASE Assessment/Plan 1. Acute on chronic diastolic failure with subendocardial ischemic injury resolved 2. Hypertenion 3. CAD s/p PCI (stent), angina pectoris 4. Persistent atrial fibrillation with subtherapeutic INR 5. YFN referable to #1 improving 6. Elevated LFTs referable to hepatic congestion resolved plan continue current meds fu inr
[2016-11-02 20:53] LABS: INR 2.26 (0.82-1.09); PROTHROMBIN TIME (PATIENT) 25.3 SEC (9.98-11.88)
[2016-11-03 07:56] LABS: MCH 27.5 pg (25.7-33.7); MCHC 32.8 g/dl (32.0-35.9); MEAN PLT VOLUME 8.7 fl (7.5-11.1); PLATELET COUNT 134 K/MM3 (134-434); RDW 15.1 % (11.9-15.9); WHITE BLOOD COUNT 3.8 K/mm3 (4.0-10.0)
[2016-11-03 09:43] LABS: INR 2.74 (0.82-1.09); PROTHROMBIN TIME (PATIENT) 30.8 SEC (9.98-11.88)
--- NOTE | 2016-11-03 10:04 | PN ---
Progress Note (short form) - Note Progress Note: S: 81 year old gentleman, known case of hypertension, coronary artery disease s/p PCI/stenting, history of congestive heart failure, permanent atrial fibrillation, admitted with increasing dyspnea and found to be in congestive heart failure. Patient is ambulating and denies any further dyspnea, PND or orthopnea. No history of chest pain or discomfort, no history of palpitations. Active Medications Generic Name Dose Route Start Last Admin Trade Name Freq PRN Reason Stop Dose Admin Acetaminophen 650 mg 11/01/16 22:33 Tylenol - PO Q6H PRN FEVER OR PAIN Carvedilol 6.25 mg 10/30/16 11:00 11/02/16 21:34 Coreg - PO 6.25 mg BID TORIN Administration Heparin Sodium (Porcine) 1,000 unit 10/30/16 09:00 Heparin - IVPUSH PRN PRN Heparin Heparin Sodium (Porcine) 5,000 unit 10/30/16 09:00 Heparin - IVPUSH PRN PRN Heparin Heparin Sodium/Dextrose 500 mls @ 20 mls/hr 10/30/16 09:00 11/02/16 09:00 Heparin Infusion - IVPB 19 mls/hr TITR TORIN Administration Protocol 1,000 UNITS/HR Spironolactone 25 mg 11/02/16 10:45 11/02/16 11:58 Aldactone - PO 25 mg DAILY [facility] Administration Valsartan 160 mg 10/31/16 10:00 11/02/16 11:58 Diovan - PO 160 mg DAILY [facility] Administration Warfarin Sodium 5 mg 10/30/16 18:00 11/02/16 17:40 Coumadin - PO 5 mg DAILY@1800 [facility] Administration O: 81 year old male was in no acute distress, no pallor, cyanosis, clubbing, or jaundice. Last Vital Signs Temp Pulse Resp BP Pulse Ox 97.2 F L 62 Irregularly irregular 20 155/76 97 11/03/16 05:00 11/03/16 05:00 11/03/16 05:00 11/03/16 05:00 11/02/16 20:29 Neck: Supple, no JVD, positive HJR, carotids were equal and upstrokes were normal, no thyromegaly appreciated. Heart: PMI was in the 5th intercostal space, no heaves or thrills, S1 is variable and S2 was normal. Grade I/ decrescendo systolic murmur left lower sternal border. No gallops were appreciated. Lungs: Clear on auscultation bilaterally. Abdomen: Soft, nontender, no hepatosplenomegaly appreciated, and no palpable masses were felt. Extremities: No calf tenderness or dependent edema. CBC, BMP 11/03/16 05:48 10/31/16 06:10 Laboratory Results - last 24 hr 11/02/16 11/03/16 11/03/16 19:45 05:48 05:48 WBC 3.8 L RBC 4.28 Hgb 11.8 Hct 36.0 MCV 84.0 MCHC 32.8 RDW 15.1 Plt Count 134 MPV 8.7 INR 2.26 H D PTT (Actin FS) 94.1 H 11/03/16 09:00 WBC RBC Hgb Hct MCV MCHC RDW Plt Count MPV INR 2.74 H PTT (Actin FS) Echocardiogram 10/30/2016 Interpretation Summary: There is no comparison study available. There is moderate mitral regurgitation. Mild aortic regurgitation. The left atrium is mildy dilated. Trace pulmonic valvular regurgitation. The left ventricle is normal in size. Left ventricular systolic function is mildly reduced. The right atrium is mildly dilated. There is severe tricuspid regurgitation. There is moderate pulmonary hypertension Rhythm Strip 11/02/2016 18:35 Atrial fibrillation with short run of wide complex tachycardia, consisting of 5 beats in a row 10/30/2016 EKG Atrial fibrillation with moderate ventricular response, possible inferior wall myocardial infarction of indeterminate age, poor R wave progression V1 to V3. ST segment depressions in leads V4 to V6. No previous ECG available for comparison. Impression: (1) Severe tricuspid regurgitation (See echo report), etiology to be determined, possibly related to left ventricular diastolic dysfunction / HCVD. Code(s): I07.1 - RHEUMATIC TRICUSPID INSUFFICIENCY (2) Moderate pulmonary hypertension. Code(s): I27.2 - OTHER SECONDARY PULMONARY HYPERTENSION (3) Coronary artery disease, s/p PCI/stenting Code(s): I25.10 - ATHSCL HEART DISEASE OF [place] CORONARY ARTERY W/O ANG PCTRS Qualifiers: Coronary Disease-Associated Artery/Lesion type: [place] artery [place] vs. transplanted heart: [place] heart Associated angina: without angina Qualified Code(s): I25.10 - Atherosclerotic heart disease of [place] coronary artery without angina pectoris (4) Congestive heart failure, resolving Code(s): I50.33 - CONGESTIVE HEART FAILURE (5) Hypertension, Hypertensive cardiovascular disease Code(s): I11.9 - HYPERTENSIVE HEART DISEASE WITH HEART FAILURE I42.9 - CARDIOMYOPATHY, UNSPECIFIED Qualifiers: Heart failure presence: with heart failure Qualified Code(s): I11.0 - Hypertensive heart disease with heart failure (6) Elevated troponins; a. secondary to ischemia b. CHF c. Partly related to atrial fibrillation Code(s): R74.8 - ABNORMAL LEVELS OF OTHER SERUM ENZYMES (7) Hypokalemia. Code(s): E87.6 - HYPOKALEMIA (8) Atrial fibrillation of indeterminate duration Code(s): I48.91 - UNSPECIFIED ATRIAL FIBRILLATION (9) Kidney disease of indeterminate duration Code(s): N17.9 - ACUTE KIDNEY FAILURE, UNSPECIFIED Recommendations: 1. Follow up basic metabolic profile and magnesium level 2. Dose of Aldactone could be increased to 25 mg BID provided renal function is stable, under close monitoring of basic metabolic profile. 3. Consider titrating dose of Calvidalol and adding oral nitrates. 4. Follow up ECG. 5. Strict dietary restriction including curtailing salt intake. Prognosis: Guarded Attestation: Documentation prepared by Jayjay Cota, acting as director biomedical engineering for Noel Villalta MD.
[2016-11-03] MEDS: VALSARTAN 80 MG TABLET (UD) PO SCH (10:30)
[2016-11-03] MEDS: SPIRONOLACTONE 25 MG TABLET (FP) PO SCH (10:32)
[2016-11-03] MEDS: CARVEDILOL 6.25 MG TABLET (FP) PO SCH (10:32)
[2016-11-03 11:19] VITALS: BP 155/76; PULSE 62; TEMP 98.5
--- NOTE | 2016-11-03 18:11 | DS ---
Physical Examination Vital Signs: Vital Signs Temperature 98.5 F 11/03/16 09:00 Pulse Rate 62 11/03/16 09:00 Respiratory Rate 20 11/03/16 09:00 Blood Pressure 155/76 11/03/16 09:00 O2 Sat by Pulse Oximetry (%) 97 11/03/16 09:00 Constitutional: Yes: No Distress HENT: Yes: Atraumatic Neck: Yes: Supple Cardiovascular: Yes: Regular Rate and Rhythm Respiratory: Yes: CTA Bilaterally Gastrointestinal: Yes: Normal Bowel Sounds Extremities: Yes: WNL Labs: CBC, BMP 11/03/16 05:48 Discharge Summary Reason For Visit: ELEVATED TROPONIN,CHF Current Active Problems Acute kidney injury (Acute) Acute on chronic diastolic CHF (congestive heart failure) (Acute) Atrial fibrillation with controlled ventricular response (Acute) CHF (congestive heart failure) (Acute) Coronary artery disease (Acute) Elevated troponin (Acute) Hypertensive cardiomyopathy (Acute) Hypokalemia (Acute) Pulmonary hypertension (Acute) S/P coronary artery stent placement (Acute) Subendocardial ischemia (Acute) Tricuspid regurgitation (Acute) - Instructions Diet, Activity, Other Instructions: check pt/inr 3 times per week keep inr between 2-3 Referrals: Artem Weiner [Primary Care Provider] - - Home Medications Comprehensive Discharge Medication List: Ambulatory Orders Carvedilol [Coreg -] 6.25 mg PO BID #60 tablet 11/03/16 Furosemide [Lasix -] 20 mg PO DAILY #30 tablet 11/03/16 Spironolactone [Aldactone -] 25 mg PO DAILY #30 tablet 11/03/16 Valsartan [Diovan] 160 mg PO DAILY #30 tablet 11/03/16 Warfarin Sodium [Coumadin] 3 mg PO DAILY #30 tablet 11/03/16 [facility]
[2016-11-03] MEDS ORDERED: WARFARIN NA 3 MG TABLET PO SCH (18:15)
== END 2016-11-03 20:02 | disposition home or self-care (01) | DRG 292 ==
LOC: JER 07:21 → JERBED 09:42 → UNDOADMOB 09:42 → INTOOBSV 09:42 → JERBED 09:42 → UNDOADMOB 19:43 → JERBED 19:43 → J4W 20:37 → INTOOBSV 10-31 09:30 → OBSVTOIN 10-31 09:30
PROVIDERS: ADMIT Internal Medicine; ATTEND Internal Medicine
DX: I11.0 Hypertensive heart disease with heart failure (principal); I48.1 Persistent atrial fibrillation; N17.9 Acute kidney failure, unspecified; I24.8 Other forms of acute ischemic heart disease; I50.33 Acute on chronic diastolic (congestive) heart failure; E87.6 Hypokalemia; I25.10 Atherosclerotic heart disease of native coronary artery without angina pectoris; Z79.01 Long term (current) use of anticoagulants; K76.1 Chronic passive congestion of liver; Z95.5 Presence of coronary angioplasty implant and graft; I36.1 Nonrheumatic tricuspid (valve) insufficiency; I27.2 Other secondary pulmonary hypertension
CPT/HCPCS: 36415; 71010-TC; 80048; 80053; 80061; 80076; 81003; 81015; 82550; 82553; 83721; 83735; 83880; 84443; 84484; 85025; 85027; 85610; 85730; 93005; 93010; 93306-TC; 99285-25; G0378; J1644

== ENCOUNTER 2017-06-01 12:49 | Inpatient (IN) | payer OTHER ==
[2017-06-01 13:04] VITALS: BMI 25.8
--- NOTE | 2017-06-01 13:11 | PDOC ---
Attending Attestation - HPI HPI: 06/01/17 13:41 82 year old male, with PMH of CHF (on lasix), CAD (s/p stents x2 2007), Afib ( on Coumadin), and HTN, who presents to the emergency room [facility] complaining of SOB on exacerbation and chest pain that started last night. The patient explains that he hasn't been feeling well over the past couple of days. He reports angina and experiences chest tightness on exacerbation approximately 2x per week; however, yesterday the chest pain became more frequent with exacerbation such as walking. Denies leg swelling. Denies fever, chills, nausea, vomiting. Denies abdominal pain. Denies cough. Allergies: NKDA PCP: Dr. Artem Weiner [[facility]] 06/01/17 17:16 - Physicial Exam PE: 06/01/17 13:42 Vitals: Triage Vital signs reviewed General Appearance: no acute distress, well nourished well developed Head: Atraumatic Eyes: Pupils equal reactive round, extraocular movement intact Neck: Supple; No Nucal rigidity Chest Wall: Nontender Cardiac: Regular rate and rhythym, no murmurs, no rubs, no gallops Lungs: +crackles at the bases bilaterally. Good air movement bilaterally Abdomen: Soft, non distended, normal bowel sounds, non tender to palpation Extremities: Full range of motion to all extremities, no cyanosis, clubbing, or edema Skin: Warm and dry, no rashes or lesions, no rash, no petechiae Psych: Normal mood, normal affect <Oliva Harmon - Last Filed: 06/01/17 17:16> - Resident Resident Name: Lester Luciano - ED Attending Attestation I have performed the following: I have examined & evaluated the patient, The case was reviewed & discussed with the resident, I agree w/resident's findings & plan, Exceptions are as noted - Medical Decision Making 06/01/17 18:33 82 years old with past medical history significant for CHF CAD A. fib on Coumadin hypertension. History and examination and workup consistent with CHF exacerbation with demand ischemia. Lasix ordered. In discussion with hospitalist, heparin order to bridge patient given that he is subtherapeutic on his Coumadin Cardiology has been consult We'll admit to medicine for further management. <Louis Das - Last Filed: 06/01/17 18:33>
--- NOTE | 2017-06-01 13:18 | PDOC ---
History of Present Illness - General Chief Complaint: Shortness of Breath Stated Complaint: SOB Time Seen by Provider: 06/01/17 13:00 History Source: Patient, EMS - History of Present Illness Initial Comments: 06/01/17 16:27 82M with pmh of CAD s/p stent 10 years ago, CHF on LAsix, A-fib on Coumadin, HTN, called 911 this morning for shortness of breath since yesterday which was then associated with chest pain on exertion. That SOB on exertion is usually chronic but since yesterday it was exacerbated. Past History - Past Medical History Allergies/Adverse Reactions: Allergies Allergy/AdvReac Type Severity Reaction Status Date / Time No Known Allergies Allergy Verified 06/01/17 13:06 Home Medications: Ambulatory Orders Carvedilol [Coreg -] 6.25 mg PO BID #60 tablet 11/03/16 Furosemide [Lasix -] 20 mg PO DAILY #30 tablet 11/03/16 Spironolactone [Aldactone -] 25 mg PO DAILY #30 tablet 11/03/16 Valsartan [Diovan] 160 mg PO DAILY #30 tablet 11/03/16 Warfarin Sodium [Coumadin] 3 mg PO DAILY #30 tablet 11/03/16 Cardiac Disorders: Yes COPD: No CHF: Yes HTN: Yes - Surgical History Cardiac Surgery: Yes (stent) - Suicide/Smoking/Psychosocial Hx Smoking History: Never smoked Have you smoked in the past 12 months: No Hx Alcohol Use: No (denies) Drug/Substance Use Hx: No (denies) Substance Use Type: None Review of Systems - Review of Systems Able to Perform ROS?: Yes Constitutional: No: Symptoms Reported HEENTM: No: Symptoms Reported Respiratory: Yes: See HPI Cardiac (ROS): Yes: See HPI ABD/GI: No: Symptoms Reported : No: Symptoms Reported Musculoskeletal: No: Symptoms Reported Integumentary: No: Symptoms Reported Neurological: No: Symptoms reported Endocrine: No: Symptoms Reported Hematologic/Lymphatic: No: Symptoms Reported *Physical Exam - Vital Signs Last Vital Signs Temp Pulse Resp BP Pulse Ox 97.5 F L 75 20 208/115 97 06/01/17 13:02 06/01/17 13:02 06/01/17 13:02 06/01/17 13:02 06/01/17 13:02 - Physical Exam General Appearance: Yes: Nourished, Appropriately Dressed. No: Apparent Distress HEENT: positive: EOMI, EDILMA, Normal ENT Inspection Neck: negative: Tender Respiratory/Chest: positive: Crackles (bilaterally). negative: Chest Tender Cardiovascular: positive: Regular Rhythm, Regular Rate, S1, S2 Gastrointestinal/Abdominal: positive: Normal Bowel Sounds, Flat. negative: Tender ED Treatment Course - LABORATORY CBC & Chemistry Diagram: 06/01/17 13:53 06/01/17 13:53 Medical Decision Making - Medical Decision Making 06/01/17 17:00 82 year old male, with PMH of CHF (on lasix), CAD (s/p stents x2 2007), Afib ( on Coumadin), and HTN, who presents to the emergency room BIBA complaining of SOB on exacerbation and chest pain that started last night. CXR: Cardiomegaly with diffuse interstitial lung markings, nonspecific and could be secondary to CHF or chronic interstitial lung process, grossly unchanged since October 30, 2016. Right lateral lower lung zone opacity, unchanged since the prior exam could be secondary to chronic atelectatic changes or loculated effusion. Prominent right upper pleuro-mediastinal stripe, slightly more prominent than the prior exam could be secondary to tortuous vessels other underlying process cannot be excluded. Correlation with CT of the chest is recommended. PAtient troponin 1.7, ekg with known a-fib but with addition of pvcs. Patient comfortable. PAtient admitted to Telemetry. *DC/Admit/Observation/Transfer Diagnosis at time of Disposition: Acute on chronic diastolic CHF (congestive heart failure) CHF (congestive heart failure) Qualifiers: Congestive heart failure type: unspecified congestive heart failure type Congestive heart failure chronicity: acute on chronic Qualified Code(s): I50.9 - Heart failure, unspecified - Referrals - Patient Instructions - Post Discharge Activity
[2017-06-01 14:01] LABS: BASOPHIL 1.1 % (0-2.0); EOSINOPHIL 4.7 % (0-4.5); MCH 27.7 pg (25.7-33.7); MCHC 32.4 g/dl (32.0-35.9); MEAN CELL VOLUME 85.6 fl (80-96); MEAN PLT VOLUME 8.9 fl (7.5-11.1); NEUTROPHILS 55.5 % (42.8-82.8); PLATELET COUNT 119 K/MM3 (134-434); RDW 15.5 % (11.9-15.9)
[2017-06-01 14:12] LABS: VENOUS PH 7.3 (7.32-7.42)
[2017-06-01 14:13] LABS: INR 1.15 (0.82-1.09); VENOUS BLOOD GAS HCO3 28.1 meq/L (19-25)
[2017-06-01 14:15] LABS: ACTIVATED PTT 34.7 SECONDS (26.9-34.4)
[2017-06-01 14:27] LABS: ALBUMIN 3.3 g/dl (3.4-5.0); ANION GAP 10 (8-16); BILIRUBIN,TOTAL 0.5 mg/dL (0.2-1.0); CALCIUM 8.5 mg/dL (8.5-10.1); CO2 25 mmol/L (21-32); CREATININE 1.6 mg/dL (0.7-1.3); GLUCOSE,RANDOM 90 mg/dL (74-106); SGOT/AST 33 U/L (15-37); SGPT/ALT 34 U/L (12-78); TOT PROT 6.8 g/dl (6.4-8.2)
[2017-06-01 14:28] LABS: ALK PHOS 105 U/L (45-117)
[2017-06-01 14:50] LABS: TROPONIN I 1.17 ng/ml (0.00-0.05)
[2017-06-01] MEDS ORDERED: FUROSEMIDE 40 MG/4 ML INJECTABLE VIAL IVPUSH ONE (15:18)
[2017-06-01] MEDS ORDERED: FUROSEMIDE 40 MG/4 ML INJECTABLE VIAL ONE (15:45)
[2017-06-01] MEDS ORDERED: HEPARIN NA (PORCINE) 5,000 UNITS/ML 1ML VIAL IVPUSH PRN ×2 (16:08)
--- NOTE | 2017-06-01 16:35 | HP ---
CHIEF COMPLAINT:Dyspnea on exertion and shortness of breath PCP:Artem Weiner in [facility] HISTORY OF PRESENT ILLNESS: 82M PMH of systolic CHF CAD s/p stent x2 A fib on Coumadin HTN and possible CKD based on previous labs presents to the ED with a chief complaint of shortness of breath, worsening dyspnea on exertion and worsening anginal symptoms. Per patient he used to be able to walk around his apartment and now is only able to walk a few steps before he gets tired. His chest pain has been on and off but recently his chest pain has been getting worse and coming on with less strenuous activity. Last night his symptoms got much worse. Patient had an admission at this hospital 7 months ago for similar symptoms. He used to have anginal symptoms 2 times per week but recently is has been more frequent. This has been progressing over the past 2 weeks. He denies nausea vomiting fevers chills hematuria or dysuria. patient does not know his dry weight. Denies leg swelling. Denies abdominal pain. Denies cough. In the EDhe was noted to have an elevated BNP elevated troponin and elevated Cr. Tropoinin was around the same number he had last admission and Cr seems to be at baseline if compared to previous admission labs. Patient noted to be in hypertensive emergency in the ED. Allergies: NKDA Recent Travel:Denies PAST MEDICAL HISTORY:As above PAST SURGICAL HISTORY: Stent x 2 Social History: Smoking:Denies Alcohol:Denies Drugs: Denies Family History: Allergies No Known Allergies Allergy (Verified 06/01/17 13:06) HOME MEDICATIONS: Home Medications Medication Instructions Recorded Carvedilol [Coreg -] 6.25 mg PO BID #60 tablet 11/03/16 Furosemide [Lasix -] 20 mg PO DAILY #30 tablet 11/03/16 Spironolactone [Aldactone -] 25 mg PO DAILY #30 tablet 11/03/16 Valsartan [Diovan] 160 mg PO DAILY #30 tablet 11/03/16 Warfarin Sodium [Coumadin] 3 mg PO DAILY #30 tablet 11/03/16 REVIEW OF SYSTEMS CONSTITUTIONAL: Absent: fever, chills, diaphoresis, generalized weakness, malaise, loss of appetite, weight change HEENT: Absent: rhinorrhea, nasal congestion, throat pain, throat swelling, difficulty swallowing, mouth swelling, ear pain, eye pain, visual changes CARDIOVASCULAR: Absent: , syncope, palpitations, lightheadedness, peripheral edema Present: chest pain irregular heart rate RESPIRATORY: Absent: cough, wheezing, stridor, hemoptysis Present: shortness of breath, dyspnea with exertion, orthopnea GASTROINTESTINAL: Absent: abdominal pain, abdominal distension, nausea, vomiting, diarrhea, constipation, melena, hematochezia GENITOURINARY: Absent: dysuria, frequency, urgency, hesitancy, hematuria, flank pain, genital pain MUSCULOSKELETAL: Absent: myalgia, arthralgia, joint swelling, back pain, neck pain SKIN: Absent: rash, itching, pallor HEMATOLOGIC/IMMUNOLOGIC: Absent: easy bleeding, easy bruising, lymphadenopathy, frequent infections ENDOCRINE: Absent: unexplained weight gain, unexplained weight loss, heat intolerance, cold intolerance NEUROLOGIC: Absent: headache, focal weakness or paresthesias, dizziness, unsteady gait, seizure, mental status changes, bladder or bowel incontinence PSYCHIATRIC: Absent: anxiety, depression, suicidal or homicidal ideation, hallucinations. PHYSICAL EXAMINATION Vital Signs - 24 hr 06/01/17 06/01/17 06/01/17 13:02 13:15 15:31 Temperature 97.5 F L Pulse Rate 75 78 Pulse Rate [ 71 Apical] Respiratory 20 24 Rate Blood Pressure 208/115 Blood Pressure 195/98 [Left Arm] O2 Sat by Pulse 97 99 100 Oximetry (%) GENERAL: Awake, alert, and fully oriented, in no acute distress. EYES: Pupils equal, round and reactive to light, extraocular movements intact, sclera anicteric EARS, NOSE, THROAT: Moist mucous membranes. NECK: No JVD LUNGS: Bibasilar crackles R>L HEART: Irregularly Irregular S1 S2 heard 3/6 non radiating murmur heard at RUSB ABDOMEN: Soft, nontender, not distended, normoactive bowel sounds, MUSCULOSKELETAL: No bony deformities or tenderness. No CVA tenderness. UPPER EXTREMITIES: warm, well-perfused. No peripheral edema. LOWER EXTREMITIES: warm, well-perfused. No calf tenderness. No peripheral edema. NEUROLOGICAL: Cranial nerves II-XII grossly intact. Normal speech. PSYCHIATRIC: Cooperative. Good eye contact. Appropriate mood and affect. SKIN: Warm, dry, normal turgor, no rashes or lesions noted Laboratory Results - last 24 hr 06/01/17 06/01/17 06/01/17 13:53 13:53 13:53 WBC 5.0 D RBC 4.76 Hgb 13.2 D Hct 40.8 MCV 85.6 MCH 27.7 MCHC 32.4 RDW 15.5 Plt Count 119 L MPV 8.9 Neutrophils % 55.5 Lymphocytes % 28.2 D Monocytes % 10.5 H Eosinophils % 4.7 H D Basophils % 1.1 PT with INR INR PTT (Actin FS) VBG pH 7.30 L POC VBG pCO2 58.5 H POC VBG pO2 31.2 Mixed VBG HCO3 28.1 H Sodium 145 Potassium 3.9 D Chloride 110 H Carbon Dioxide 25 Anion Gap 10 BUN 21 H Creatinine 1.6 H Creat Clearance w eGFR 41.49 Random Glucose 90 D Calcium 8.5 Total Bilirubin 0.5 D AST 33 ALT 34 D Alkaline Phosphatase 105 Creatine Kinase Troponin I B-Natriuretic Peptide Total Protein 6.8 Albumin 3.3 L 06/01/17 06/01/17 13:53 13:53 WBC RBC Hgb Hct MCV MCH MCHC RDW Plt Count MPV Neutrophils % Lymphocytes % Monocytes % Eosinophils % Basophils % PT with INR 13.00 H INR 1.15 H D PTT (Actin FS) 34.7 H D VBG pH POC VBG pCO2 POC VBG pO2 Mixed VBG HCO3 Sodium Potassium Chloride Carbon Dioxide Anion Gap BUN Creatinine Creat Clearance w eGFR Random Glucose Calcium Total Bilirubin AST ALT Alkaline Phosphatase Creatine Kinase 112 Troponin I 1.17 H* B-Natriuretic Peptide 06347.45 H Total Protein Albumin EKG: A fib. SC depressin in V6 unchanged from previous EKG. Non ischemic EKG Echo from 10/2016: Mild MR LVEF Mildly decreased Severe TR Moderate pulm HTN CXR:Pulm vascular congestion from my read. Offical read pending ASSESSMENT/PLAN: 82M with multiple medical problems presents to the ED with dyspnea on exertion and unstable angina found to have elevated troponin. Acute exacerbation of systolic CHF:Patient does not have JVD or pitting edema but has pulmonary vascular congestion and clinically shortness of breath, dyspnea on exertion, orthopnea, and [id number] exercise tolerance: Admit to inpatient telemetry Given 40 lasix in ED Hold home dose of lasix give 40mg IV push lasix daily cardiology consult trend labs continue aldactone continue coreg continue ARB-valsartan Check TSH Daily weights strict I/O's Unstable angina/elevated troponin/ CAD s/p stent r/o ACS: unlikely to be ischemia. likely a combination of demand with CHF exacerbation with poor clearance of troponins from CKD No EKG changes Give stat Aspirin give stat dose of lipitor check lipids check HbA1c Check TSH Cardiology consult may need stress test start heparin gtt EKG PRN chest pain trend troponins q6h to document peak daily aspirin daily statin hypertensive emergency/HTN: Patient's BP 208/115 in ED upon arrival with troponinemia given lasix in ED with minimal response will give 5mg PO norvasc now and recheck BP trend BP and treat PRN telemetry monitoring continue valsartan continue coreg cardiology consult Afib on coumadin with subtherapeutic INR: Rate is controlled at this time continue coreg start heparin gtt and trend PTT per protocol get stool for occult blood Increase coumadin to 5mg tonight CKD: patient denies a history of renal disease but on discharge had Cr of 1.7 today 1.6 so will assume it is at baseline until PMD is reached monitor Cr daily avoid nephrotoxic drugs FEN: No IVF no electrolyte issues-will monitor while on lasix Cardiac diet PPx: Heparin gtt No GI PPx indicated PT consult to avoid deconditioning Case discussed with attending Dr. Steiner Unsure of this patient is compliant with his medications as his INR is subtherapeutic and his BP is uncontrolled Will need to call pharmacy in AM to confirm home meds. Visit type - Emergency Visit Emergency Visit: Yes Care time: The patient presented to the Emergency Department on the above date and was hospitalized for further evaluation of their emergent condition. - New Patient This patient is new to me today: Yes Date on this admission: 06/01/17 - Critical Care Critical Care patient: No
[2017-06-01] MEDS ORDERED: ASPIRIN 325 MG TABLET PO ONE (16:40)
[2017-06-01] MEDS ORDERED: ATORVASTATIN CA 40 MG TABLET (FP) PO ONE (16:40)
[2017-06-01] MEDS ORDERED: amLODIPine BESYLATE 5 MG TABLET (FP) PO ONE (16:47)
[2017-06-01] MEDS ORDERED: ATORVASTATIN CA 40 MG TABLET (FP) ONE (17:32)
[2017-06-01] MEDS ORDERED: amLODIPine BESYLATE 5 MG TABLET (FP) ONE (17:32)
[2017-06-01] MEDS ORDERED: ASPIRIN 325 MG TABLET ONE (17:32)
[2017-06-01] MEDS ORDERED: HEPARIN INFUSION - 25,000 UNITS/500 ML INFUS.BAG IVPB ONE (17:32)
[2017-06-01] MEDS ORDERED: WARFARIN NA 5 MG TABLET (UD) PO ONE (18:00)
--- NOTE | 2017-06-01 19:01 | CON.CARD ---
Consult Consult Specialty:: Cardiology Referred by:: Hospitalist Medicine Reason for Consultation:: CHF - History of Present Illness Chief Complaint: Dyspnea on exertion History of Present Illness: 82 yo M with PMHx of systolic CHF, HTN/HCVD, CAD(s/p stents x2 2008) persistent Afib(on coumadin), CKD presents with progressive exertional shortness of breath , exertional fatigue and angina. He was noted to be hypertensive in ER. He also reports orthopnea, denies near or true syncope, PND, LE edema, dietary or medication indiscretion or NSAID use. His primary and cardiology docs are in [place], feels improved with diuresis. - History Source History Provided By: Patient Limitations to Obtaining History: No Limitations - Past Medical History Cardio/Vascular: Yes: AFIB, CAD, CHF, HTN - Past Surgical History Past Surgical History: Yes: Stent - Alcohol/Substance Use Hx Alcohol Use: No (denies) - Smoking History Smoking history: Never smoked Have you smoked in the past 12 months: No Home Medications - Allergies Allergies/Adverse Reactions: Allergies Allergy/AdvReac Type Severity Reaction Status Date / Time No Known Allergies Allergy Verified 06/01/17 13:06 - Home Medications Home Medications: Ambulatory Orders Carvedilol [Coreg -] 6.25 mg PO BID #60 tablet 11/03/16 Furosemide [Lasix -] 20 mg PO DAILY #30 tablet 11/03/16 Spironolactone [Aldactone -] 25 mg PO DAILY #30 tablet 11/03/16 Valsartan [Diovan] 160 mg PO DAILY #30 tablet 11/03/16 Warfarin Sodium [Coumadin] 3 mg PO DAILY #30 tablet 11/03/16 Review of Systems - Review of Systems Cardiovascular: reports: Chest Pain Respiratory: reports: Exercise Intolerance, Orthopnea, SOB on Exertion - Risk Factors Known Risk Factors: Yes: Hypertension Vital Signs: Vital Signs Temperature 97.5 F L 06/01/17 13:02 Pulse Rate 71 06/01/17 15:31 Respiratory Rate 24 06/01/17 15:31 Blood Pressure 195/98 06/01/17 15:31 O2 Sat by Pulse Oximetry (%) 100 06/01/17 15:31 Constitutional: Yes: No Distress, Calm Neck: Yes: Supple Respiratory: Yes: Regular, Diminished, On Nasal O2 Gastrointestinal: Yes: Normal Bowel Sounds, Soft Cardiovascular: Yes: Pulse Irregular JVD: No Carotid Bruit: No Heart Sounds: Yes: S1, S2 Murmur: Yes: Systolic Murmur, Grade 2 Edema: No - Other Data Labs, Other Data: CBC, BMP 06/01/17 13:53 06/01/17 13:53 INR, PTT INR 1.15 (0.82-1.09) H D 06/01/17 13:53 Troponin, BNP 06/01/17 13:53 Troponin I 1.17 H* B-Natriuretic Peptide 92310.45 H Troponin, BNP 06/01/17 13:53 Troponin I 1.17 H* B-Natriuretic Peptide 29846.45 H Afib @ [address] changes Ejection Fraction %: LVEF > or = 40 % Imaging - Results Chest X-ray: Report Reviewed (CHF) Problem List - Problems (1) Chronic kidney disease (CKD) Code(s): N18.9 - CHRONIC KIDNEY DISEASE, UNSPECIFIED Qualifiers: Chronic kidney disease stage: stage 3 (moderate) Qualified Code(s): N18.3 - Chronic kidney disease, stage 3 (moderate) (2) Acute on chronic diastolic CHF (congestive heart failure) Code(s): I50.33 - ACUTE ON CHRONIC DIASTOLIC (CONGESTIVE) HEART FAILURE (3) Atrial fibrillation with controlled ventricular response Code(s): I48.91 - UNSPECIFIED ATRIAL FIBRILLATION (4) Coronary artery disease Code(s): I25.10 - ATHSCL HEART DISEASE OF [place] CORONARY ARTERY W/O ANG PCTRS Qualifiers: Coronary Disease-Associated Artery/Lesion type: [place] artery [place] vs. transplanted heart: [place] heart Associated angina: with stable angina Qualified Code(s): I25.118 - Atherosclerotic heart disease of [place] coronary artery with other forms of angina pectoris (5) Elevated troponin Code(s): R74.8 - ABNORMAL LEVELS OF OTHER SERUM ENZYMES (6) Hypertensive cardiomyopathy Code(s): I11.9 - HYPERTENSIVE HEART DISEASE WITHOUT HEART FAILURE; I42.9 - CARDIOMYOPATHY, UNSPECIFIED Qualifiers: Heart failure presence: with heart failure Qualified Code(s): I11.0 - Hypertensive heart disease with heart failure (7) S/P coronary artery stent placement Code(s): Z95.5 - PRESENCE OF CORONARY ANGIOPLASTY IMPLANT AND GRAFT (8) Subendocardial ischemia Code(s): I24.8 - OTHER FORMS OF ACUTE ISCHEMIC HEART DISEASE Assessment/Plan 10/30/2016 Echo: Mild decreased LV fxn, mod MR, mild AR, severe TR 1. Acute on chronic diastolic failure with subendocardial ischemic injury 2. Hypertenion/HCVD, BP not at goal 3. CAD s/p PCI (stent), angina pectoris 4. Persistent atrial fibrillation with subtherapeutic INR 5. CKD P:1. IV diuresis and Aldactone 25 qd with monitor diuretic response, renal fxn and electrolytes, 2. Continue ASA 81 qd, Diovan 160 qd and carvedilol 6.25 bid with uptitration as tolerated 3. F/u trops to document peak 4. Heparin gtt->coumadin per INR 5. Thank you for consultative opportunity
--- NOTE | 2017-06-01 19:33 | PN ---
Teaching Attending Note Name of Resident: Ernesto Bell ATTENDING PHYSICIAN STATEMENT I saw and evaluated the patient. I reviewed the resident's note and discussed the case with the resident. I agree with the resident's findings and plan as documented. SUBJECTIVE: Patient is 82M PMHx of systolic CHF, CAD s/p stent x2, A fib on Coumadin, HTN and CKD presented with Shortness of breath on Exertion, with chest pain and elevated blood pressure. OBJECTIVE: Vital Signs Temperature 97.5 F L 06/01/17 13:02 Pulse Rate 71 06/01/17 15:31 Respiratory Rate 24 06/01/17 15:31 Blood Pressure 195/98 06/01/17 15:31 O2 Sat by Pulse Oximetry (%) 100 06/01/17 15:31 GENERAL: Awake, alert, and fully oriented, in mild distress. EYES: Pupils equal, round and reactive to light, extraocular movements intact, sclera anicteric EARS, NOSE, THROAT: Moist mucous membranes. NECK: No JVD LUNGS: Bibasilar crackles R>L HEART: Irregularly Irregular S1 S2 heard 3/6 ERIKA at RUSB ABDOMEN: Soft, nontender, not distended, normoactive bowel sounds, MUSCULOSKELETAL: No bony deformities or tenderness. No CVA tenderness. EXTREMITIES: warm, well-perfused. No peripheral edema. NEUROLOGICAL: Cranial nerves II-XII grossly intact. Normal speech. PSYCHIATRIC: Cooperative. Good eye contact. Appropriate mood and affect. SKIN: Warm, dry, normal turgor, no rashes or lesions noted. CBCD WBC 5.0 K/mm3 (4.0-10.0) D 06/01/17 13:53 RBC 4.76 M/mm3 (4.00-5.60) 06/01/17 13:53 Hgb 13.2 GM/dL (11.7-16.9) D 06/01/17 13:53 Hct 40.8 % (35.4-49) 06/01/17 13:53 MCV 85.6 fl (80-96) 06/01/17 13:53 MCHC 32.4 g/dl (32.0-35.9) 06/01/17 13:53 RDW 15.5 % (11.9-15.9) 06/01/17 13:53 Plt Count 119 K/MM3 (134-434) L 06/01/17 13:53 MPV 8.9 fl (7.5-11.1) 06/01/17 13:53 CMP Sodium 145 mmol/L (136-145) 06/01/17 13:53 Potassium 3.9 mmol/L (3.5-5.1) D 06/01/17 13:53 Chloride 110 mmol/L (98-107) H 06/01/17 13:53 Carbon Dioxide 25 mmol/L (21-32) 06/01/17 13:53 Anion Gap 10 (8-16) 06/01/17 13:53 BUN 21 mg/dL (7-18) H 06/01/17 13:53 Creatinine 1.6 mg/dL (0.7-1.3) H 06/01/17 13:53 Creat Clearance w eGFR 41.49 (>60) 06/01/17 13:53 Random Glucose 90 mg/dL (74-106) D 06/01/17 13:53 Calcium 8.5 mg/dL (8.5-10.1) 06/01/17 13:53 Total Bilirubin 0.5 mg/dL (0.2-1.0) D 06/01/17 13:53 AST 33 U/L (15-37) 06/01/17 13:53 ALT 34 U/L (12-78) D 06/01/17 13:53 Alkaline Phosphatase 105 U/L (45-117) 06/01/17 13:53 Total Protein 6.8 g/dl (6.4-8.2) 06/01/17 13:53 Albumin 3.3 g/dl (3.4-5.0) L 06/01/17 13:53 CARDIAC ENZYMES Creatine Kinase 112 IU/L (39-308) 06/01/17 13:53 Troponin I 1.17 ng/ml (0.00-0.05) H* 06/01/17 13:53 Current Medications Generic Name Dose Route Start Last Admin Trade Name Freq PRN Reason Stop Dose Admin Aspirin 81 mg 06/02/17 10:00 Asa - PO DAILY [facility] Atorvastatin Calcium 40 mg 06/02/17 22:00 Lipitor - PO HS [facility] Carvedilol 6.25 mg 06/01/17 22:00 Coreg - PO BID TORIN Furosemide 40 mg 06/02/17 06:00 Lasix Injection - IVPUSH BID@0600,1400 [facility] Heparin Sodium (Porcine) 1,000 unit 06/01/17 16:08 Heparin - IVPUSH PRN PRN Heparin Heparin Sodium (Porcine) 5,000 unit 06/01/17 16:08 Heparin - IVPUSH PRN PRN Heparin Heparin Sodium (Porcine) 25, 500 mls @ 20 mls/hr 06/01/17 16:15 000 unit/ Sodium Chloride IV TITR [facility] Protocol 1,000 UNIT/HR Spironolactone 25 mg 06/02/17 10:00 Aldactone - PO DAILY [facility] Valsartan 160 mg 06/02/17 10:00 Diovan - PO DAILY [facility] Home Medications Medication Instructions Recorded Carvedilol [Coreg -] 6.25 mg PO BID #60 tablet 11/03/16 Furosemide [Lasix -] 20 mg PO DAILY #30 tablet 11/03/16 Spironolactone [Aldactone -] 25 mg PO DAILY #30 tablet 11/03/16 Valsartan [Diovan] 160 mg PO DAILY #30 tablet 11/03/16 Warfarin Sodium [Coumadin] 3 mg PO DAILY #30 tablet 11/03/16 EKG: A fib. NM depressin in V6 unchanged from previous EKG. Non ischemic EKG Echo from 10/2016: Mild MR LVEF Mildly decreased Severe TR Moderate pulm HTN CXR:positive for vascular congestion ASSESSMENT/PLAN: 82M with multiple medical problems presents to the ED with dyspnea on exertion and unstable angina found to have elevated troponin. # Acute exacerbation of systolic/diastolic CHF: On Lasix IV and Aldactone , monitor Renal function. Cardiology on the case # Unstable angina with elevated troponin, with hx of CAD s/p stent r/o ACS: with positive troponins possible due to demand ischemia. On heparin drip continue on Aspirin, coreg, diovan, and lipitor # Afib on coumadin with subtherapeutic INR: Rate is controlled at this time, on HEPARIN DRIP WITH COUMADIN, recheck INR in am , PTT as per protocol # Hypertensive emergency/HTN: better controlled now, continue coreg/diovan/ Lasix # Acute over CKD : will monitor cretinine, avoid nephrotoxic drugs # Acute hypokalemia on Kdur monitor the level DVT Px: Heparin gtt
[2017-06-01] MEDS ORDERED: WARFARIN NA 5 MG TABLET (UD) ONE (20:34)
[2017-06-01] MEDS: HEPARIN - 25,000 UNIT in SODIUM CHLORIDE 495 ML IV SCH (20:37)
[2017-06-01 20:50] LABS: URINE APPEARANCE CLEAR; URINE BILIRUBIN NEGATIVE (NEGATIVE); URINE BLOOD 2+ (NEGATIVE); URINE COLOR COLORLESS; URINE GLUCOSE (UA) NEGATIVE (NEGATIVE); URINE KETONE NEGATIVE (NEGATIVE); URINE NITRITE NEGATIVE (NEGATIVE); URINE PROTEIN NEGATIVE (NEGATIVE); URINE UROBILINOGEN NEGATIVE mg/dL (0.2-1.0)
[2017-06-01 20:53] LABS: URINE HYALINE CAST 1 /lpf; URINE RBC 1
[2017-06-01 20:54] LABS: URINE WBC 0
[2017-06-01] MEDS: CARVEDILOL 6.25 MG TABLET (FP) PO SCH (22:32)
[2017-06-01 22:48] LABS: URINE LEUK ESTERASE Negative (NEGATIVE)
[2017-06-01 22:57] LABS: TROPONIN I 1.09 ng/ml (0.00-0.05)
[2017-06-02] MEDS: FUROSEMIDE 40 MG/4 ML INJECTABLE VIAL IVPUSH SCH ×2 (05:18→14:06)
[2017-06-02 07:57] LABS: MCH 27.7 pg (25.7-33.7); MCHC 32.7 g/dl (32.0-35.9); MEAN CELL VOLUME 84.5 fl (80-96); PLATELET COUNT 134 K/MM3 (134-434); RDW 15.5 % (11.9-15.9); WHITE BLOOD COUNT 4.6 K/mm3 (4.0-10.0)
--- NOTE | 2017-06-02 08:42 | PN ---
Teaching Attending Note ATTENDING PHYSICIAN STATEMENT I saw and evaluated the patient. I reviewed the resident's note and discussed the case with the resident. I agree with the resident's findings and plan as documented. SUBJECTIVE: OBJECTIVE: Vital Signs Temperature 97.8 F 06/02/17 06:00 Pulse Rate 49 L 06/02/17 06:00 Respiratory Rate 20 06/02/17 06:00 Blood Pressure 151/71 06/02/17 06:00 O2 Sat by Pulse Oximetry (%) 98 06/01/17 23:07 CBCD WBC 4.6 K/mm3 (4.0-10.0) 06/02/17 06:00 RBC 4.70 M/mm3 (4.00-5.60) 06/02/17 06:00 Hgb 13.0 GM/dL (11.7-16.9) 06/02/17 06:00 Hct 39.7 % (35.4-49) 06/02/17 06:00 MCV 84.5 fl (80-96) 06/02/17 06:00 MCHC 32.7 g/dl (32.0-35.9) 06/02/17 06:00 RDW 15.5 % (11.9-15.9) 06/02/17 06:00 Plt Count 134 K/MM3 (134-434) 06/02/17 06:00 MPV 9.0 fl (7.5-11.1) 06/02/17 06:00 CMP Sodium 145 mmol/L (136-145) 06/01/17 13:53 Potassium 3.9 mmol/L (3.5-5.1) D 06/01/17 13:53 Chloride 110 mmol/L (98-107) H 06/01/17 13:53 Carbon Dioxide 25 mmol/L (21-32) 06/01/17 13:53 Anion Gap 10 (8-16) 06/01/17 13:53 BUN 21 mg/dL (7-18) H 06/01/17 13:53 Creatinine 1.6 mg/dL (0.7-1.3) H 06/01/17 13:53 Creat Clearance w eGFR 41.49 (>60) 06/01/17 13:53 Random Glucose 90 mg/dL (74-106) D 06/01/17 13:53 Calcium 8.5 mg/dL (8.5-10.1) 06/01/17 13:53 Total Bilirubin 0.5 mg/dL (0.2-1.0) D 06/01/17 13:53 AST 33 U/L (15-37) 06/01/17 13:53 ALT 34 U/L (12-78) D 06/01/17 13:53 Alkaline Phosphatase 105 U/L (45-117) 06/01/17 13:53 Total Protein 6.8 g/dl (6.4-8.2) 06/01/17 13:53 Albumin 3.3 g/dl (3.4-5.0) L 06/01/17 13:53 CARDIAC ENZYMES Creatine Kinase 93 IU/L (39-308) 06/01/17 21:45 Troponin I 1.09 ng/ml (0.00-0.05) H* 06/01/17 21:45 Current Medications Generic Name Dose Route Start Last Admin Trade Name Freq PRN Reason Stop Dose Admin Acetaminophen 650 mg 06/02/17 06:51 Tylenol - PO Q6H PRN FEVER OR PAIN Aspirin 81 mg 06/02/17 10:00 Asa - PO DAILY [facility] Atorvastatin Calcium 40 mg 06/02/17 22:00 Lipitor - PO HS [facility] Carvedilol 6.25 mg 06/01/17 22:00 06/01/17 22:32 Coreg - PO 6.25 mg BID TORIN Administration Furosemide 40 mg 06/02/17 06:00 06/02/17 05:18 Lasix Injection - IVPUSH 40 mg BID@0600,1400 TORIN Administration Heparin Sodium (Porcine) 1,000 unit 06/01/17 16:08 Heparin - IVPUSH PRN PRN Heparin Heparin Sodium (Porcine) 5,000 unit 06/01/17 16:08 Heparin - IVPUSH PRN PRN Heparin Heparin Sodium (Porcine) 25, 500 mls @ 20 mls/hr 06/01/17 16:15 06/01/17 20: 37 000 unit/ Sodium Chloride IV 1,000 unit/hr TITR TORIN 20 mls/hr Protocol Administration 1,000 UNIT/HR Spironolactone 25 mg 06/02/17 10:00 Aldactone - PO DAILY [facility] Valsartan 160 mg 06/02/17 10:00 Diovan - PO DAILY [facility] Home Medications Medication Instructions Recorded Carvedilol [Coreg -] 6.25 mg PO BID #60 tablet 11/03/16 Furosemide [Lasix -] 20 mg PO DAILY #30 tablet 11/03/16 Spironolactone [Aldactone -] 25 mg PO DAILY #30 tablet 11/03/16 Valsartan [Diovan] 160 mg PO DAILY #30 tablet 11/03/16 Warfarin Sodium [Coumadin] 3 mg PO DAILY #30 tablet 11/03/16 Laboratory Tests 06/01/17 06/02/17 13:53 02:24 INR 1.15 H D PTT (Actin FS) 34.7 H D 68.5 H D Laboratory Tests 06/01/17 06/01/17 06/01/17 13:53 13:53 21:45 INR 1.15 H D PTT (Actin FS) 34.7 H D Troponin I 1.17 H* 1.09 H* 06/02/17 06/02/17 02:24 06:00 INR PTT (Actin FS) 68.5 H D Troponin I 1.13 H* EKG: A fib. IA depressin in V6 unchanged from previous EKG. Non ischemic EKG Echo from 10/2016: Mild MR LVEF Mildly decreased Severe TR Moderate pulm HTN CXR:Pulm vascular congestion from my read. Offical read pending ASSESSMENT/PLAN: 82M with multiple medical problems presents to the ED with dyspnea on exertion and unstable angina found to have elevated troponin. # Acute exacerbation of systolic CHF: # Unstable angina with elevated troponin, with hx of CAD s/p stent r/o ACS: # hypertensive emergency/HTN: # Afib on coumadin with subtherapeutic INR: Rate is controlled at this time # Acute over CKD : PPx: Heparin gtt 1. Acute on chronic class II-III NYHA classification systolic/diastolic failure , resolving 2. CAD post PCI/stent angina pectoris with evidence of demand ischemic injury 3. Hypertenion/HCVD 4. Persistent atrial fibrillation with sub-therapeutic INR 5. CKD 6. Hypokalemia PLAN: 1. Continue Lasix IV and Aldactone with close monitoring of renal function 2. Continue ASA 3. Continue Diovan 4. Continue Carvedilol and titrate as tolerated, hemodynamics permitting 5. Continue Lipitor 6. Continue Heparin drip pending therapeutic Coumadin/as per INR
[2017-06-02 08:48] LABS: ALBUMIN 3.1 g/dl (3.4-5.0); ANION GAP 9 (8-16); BILIRUBIN,TOTAL 0.7 mg/dL (0.2-1.0); CALCIUM 8.1 mg/dL (8.5-10.1); CHOLESTEROL 152 mg/dL (50-200); CO2 27 mmol/L (21-32); CREATININE 1.5 mg/dL (0.7-1.3); GLUCOSE,RANDOM 94 mg/dL (74-106); SGOT/AST 28 U/L (15-37); SGPT/ALT 30 U/L (12-78); TOT PROT 6.5 g/dl (6.4-8.2)
[2017-06-02 09:01] LABS: ALK PHOS 102 U/L (45-117)
[2017-06-02 09:22] LABS: TROPONIN I 1.13 ng/ml (0.00-0.05)
[2017-06-02] MEDS ORDERED: VALSARTAN 160 MG TABLET (UD) PO SCH (10:00)
[2017-06-02] MEDS ORDERED: FUROSEMIDE 40 MG/4 ML INJECTABLE VIAL IVPUSH SCH (10:00)
[2017-06-02 10:08] LABS: CPK 90 IU/L (39-308)
[2017-06-02] MEDS: ASPIRIN 81 MG CHEWABLE TABLETS PO SCH (10:18)
[2017-06-02] MEDS: SPIRONOLACTONE 25 MG TABLET (FP) PO SCH (10:18)
[2017-06-02] MEDS: CARVEDILOL 6.25 MG TABLET (FP) PO SCH ×2 (10:18→22:02)
--- NOTE | 2017-06-02 10:23 | PN ---
Progress Note (short form) - Note Progress Note: Chief Complaint: Events noted, notes reviewed, denies any chest pain, dyspnea improving History of Present Illness: Seen and examined on telemetry. Events noted, notes reviewed, denies any chest pain, dyspnea improving Echocardiography dated 10/30/2016 revealed Mild decrease in LV function, mod MR, mild AR and severe TR Medications: Current Medications Acetaminophen (Tylenol -) 650 mg PO Q6H PRN PRN Reason: FEVER OR PAIN Aspirin (Asa -) 81 mg PO DAILY [facility] Last Admin: 06/02/17 10:18 Dose: 81 mg Atorvastatin Calcium (Lipitor -) 40 mg PO HS [facility] Carvedilol (Coreg -) 6.25 mg PO BID [facility] Last Admin: 06/02/17 10:18 Dose: 6.25 mg Furosemide (Lasix Injection -) 40 mg IVPUSH BID@0600,1400 [facility] Last Admin: 06/02/17 05:18 Dose: 40 mg Heparin Sodium (Porcine) (Heparin -) 1,000 unit IVPUSH PRN PRN PRN Reason: Heparin Heparin Sodium (Porcine) (Heparin -) 5,000 unit IVPUSH PRN PRN PRN Reason: Heparin Heparin Sodium (Porcine) 25, (000 unit/ Sodium Chloride) 500 mls @ 20 mls/hr IV TITR TORIN; 1,000 UNIT/HR PRN Reason: Protocol Last Admin: 06/01/17 20:37 Dose: 1,000 unit/hr, 20 mls/hr Spironolactone (Aldactone -) 25 mg PO DAILY [facility] Last Admin: 06/02/17 10:18 Dose: 25 mg Valsartan (Diovan -) 160 mg PO DAILY [facility] Last Admin: 06/02/17 10:18 Dose: 160 mg Review of Systems Constitutional: denies Chills or Fever Respiratory: denies Cough or Sputum Production Cardiovascular: As noted above Gastrointestinal: denies Nausea, Vomiting, Diarrhea, Constipation or Abdominal Pain Genitourinary: No Symptoms Reported Musculoskeletal: No Symptoms Reported Vital Signs: Last Vital Signs Temp Pulse Resp BP Pulse Ox 97.8 F 49 L 20 151/71 98 06/02/17 06:00 06/02/17 06:00 06/02/17 06:00 06/02/17 06:00 06/01/17 23:07 Intake & Output 11/0805/31/17 06/01/17 06/02/17 23:59 23:59 23:59 23:59 Intake Total 40 140 Output Total 1000 700 Balance -960 -560 Weight 170 lb 166 lb Constitutional: No Distress, Calm Neck: Supple Negaive JVD No Bruit Respiratory: Diminished Breath Sounds at the Bases Cardiovascular: S1 S2 Irregularly Irregular Grade 2/6 SM Gastrointestinal: Soft Benign Normal Bowel Sounds Ext: No Edema Labs: CBC, BMP 06/02/17 06:00 06/02/17 06:00 Hepatic Panel Total Bilirubin 0.7 mg/dL (0.2-1.0) D 06/02/17 06:00 AST 28 U/L (15-37) 06/02/17 06:00 ALT 30 U/L (12-78) 06/02/17 06:00 Alkaline Phosphatase 102 U/L (45-117) 06/02/17 06:00 Albumin 3.1 g/dl (3.4-5.0) L 06/02/17 06:00 INR, PTT INR 1.15 (0.82-1.09) H D 06/01/17 13:53 Assessment/Plan ASSESSMENT: 1. Acute on chronic class II-III NYHA classification systolic/diastolic failure , resolving 2. CAD post PCI/stent angina pectoris with evidence of demand ischemic injury 3. Hypertenion/HCVD 4. Persistent atrial fibrillation with sub-therapeutic INR 5. CKD 6. Hypokalemia PLAN: 1. Continue Lasix IV and Aldactone with close monitoring of renal function 2. Continue ASA 3. Continue Diovan 4. Continue Carvedilol and titrate as tolerated, hemodynamics permitting 5. Continue Lipitor 6. Continue Heparin drip pending therapeutic Coumadin/as per INR Jeri Hurley M.D.
--- NOTE | 2017-06-02 15:45 | EKG ---
Test Reason : Blood Pressure : / mmHG Vent. Rate : 075 BPM Atrial Rate : 070 BPM P-R Int : 000 ms QRS Dur : 090 ms QT Int : 424 ms P-R-T Axes : 000 006 209 degrees QTc Int : 473 ms ATRIAL FIBRILLATION WITH PREMATURE VENTRICULAR OR ABERRANTLY CONDUCTED COMPLEXES BASELINE ARTIFACT MINIMAL VOLTAGE CRITERIA FOR LVH, MAY BE NORMAL VARIANT POSSIBLE INFERIOR INFARCT (CITED ON OR BEFORE 30-OCT-2016) ABNORMAL ECG WHEN COMPARED WITH ECG OF 30-OCT-2016 07:42, T WAVE INVERSION NOW EVIDENT IN LATERAL LEADS REPEAT EKG IF CLINICALLY INDICATED Confirmed by RIN CLARK MD ([id number]) on 06/02/2017 3:44:41 PM Referred By: Confirmed By:RIN CLARK MD
[2017-06-02 16:35] LABS: INR 1.21 (0.82-1.09); PROTHROMBIN TIME (PATIENT) 13.7 SEC (9.98-11.88)
[2017-06-02] MEDS: POTASSIUM CHLORIDE TABS 20 MEQ TABLET.ER (FP) PO SCH (16:39)
[2017-06-02] MEDS: HEPARIN - 25,000 UNIT in SODIUM CHLORIDE 495 ML IV SCH (16:39)
[2017-06-02 16:40] LABS: ACTIVATED PTT 79.5 SECONDS (26.9-34.4)
--- NOTE | 2017-06-02 17:40 | PN ---
Physical Exam: SUBJECTIVE: Patient seen and examined Patient is feeling better, with no acute distress. OBJECTIVE: Vital Signs Temperature 97.4 F L 06/02/17 15:51 Pulse Rate 66 06/02/17 15:51 Respiratory Rate 18 06/02/17 15:51 Blood Pressure 151/66 06/02/17 15:51 O2 Sat by Pulse Oximetry (%) 98 06/02/17 09:00 GENERAL: The patient is awake, alert, and fully oriented, in no acute distress. HEAD: Normal with no signs of trauma. EYES: PERRL, extraocular movements intact, sclera anicteric, conjunctiva clear. ENT: Ears normal, oropharynx clear without exudates, moist mucous membranes. NECK: Trachea midline, full range of motion, supple. LUNGS: Breath sounds equal, clear to auscultation bilaterally, no wheezes, no crackles, no accessory muscle use. HEART: Regular rate and rhythm, S1, S2 positive, ERIKA 2/6 ,no rub or gallop. ABDOMEN: Soft, nontender, nondistended, normoactive bowel sounds, no guarding, no rebound, no hepatosplenomegaly, no masses. EXTREMITIES: 2+ pulses, warm, well-perfused, no edema. NEUROLOGICAL: Cranial nerves II through XII grossly intact. Normal speech, gait not observed. PSYCH: Normal mood, normal affect. SKIN: Warm, dry, normal turgor, no rashes or lesions noted CBCD WBC 4.6 K/mm3 (4.0-10.0) 06/02/17 06:00 RBC 4.70 M/mm3 (4.00-5.60) 06/02/17 06:00 Hgb 13.0 GM/dL (11.7-16.9) 06/02/17 06:00 Hct 39.7 % (35.4-49) 06/02/17 06:00 MCV 84.5 fl (80-96) 06/02/17 06:00 MCHC 32.7 g/dl (32.0-35.9) 06/02/17 06:00 RDW 15.5 % (11.9-15.9) 06/02/17 06:00 Plt Count 134 K/MM3 (134-434) 06/02/17 06:00 MPV 9.0 fl (7.5-11.1) 06/02/17 06:00 CMP Sodium 143 mmol/L (136-145) 06/02/17 06:00 Potassium 3.1 mmol/L (3.5-5.1) L D 06/02/17 06:00 Chloride 107 mmol/L (98-107) 06/02/17 06:00 Carbon Dioxide 27 mmol/L (21-32) 06/02/17 06:00 Anion Gap 9 (8-16) 06/02/17 06:00 BUN 20 mg/dL (7-18) H 06/02/17 06:00 Creatinine 1.5 mg/dL (0.7-1.3) H 06/02/17 06:00 Creat Clearance w eGFR 44.69 (>60) 06/02/17 06:00 Random Glucose 94 mg/dL (74-106) 06/02/17 06:00 Calcium 8.1 mg/dL (8.5-10.1) L 06/02/17 06:00 Total Bilirubin 0.7 mg/dL (0.2-1.0) D 06/02/17 06:00 AST 28 U/L (15-37) 06/02/17 06:00 ALT 30 U/L (12-78) 06/02/17 06:00 Alkaline Phosphatase 102 U/L (45-117) 06/02/17 06:00 Total Protein 6.5 g/dl (6.4-8.2) 06/02/17 06:00 Albumin 3.1 g/dl (3.4-5.0) L 06/02/17 06:00 CARDIAC ENZYMES Creatine Kinase 90 IU/L (39-308) 06/02/17 06:00 Troponin I 1.13 ng/ml (0.00-0.05) H* 06/02/17 06:00 Active Medications Generic Name Dose Route Start Last Admin Trade Name Freq PRN Reason Stop Dose Admin Acetaminophen 650 mg 06/02/17 06:51 Tylenol - PO Q6H PRN FEVER OR PAIN Aspirin 81 mg 06/02/17 10:00 06/02/17 10:18 Asa - PO 81 mg DAILY TORIN Administration Atorvastatin Calcium 40 mg 06/02/17 22:00 Lipitor - PO HS [facility] Carvedilol 6.25 mg 06/01/17 22:00 06/02/17 10:18 Coreg - PO 6.25 mg BID TORIN Administration Furosemide 40 mg 06/02/17 06:00 06/02/17 14:06 Lasix Injection - IVPUSH 40 mg BID@0600,1400 OTRIN Administration Heparin Sodium (Porcine) 1,000 unit 06/01/17 16:08 Heparin - IVPUSH PRN PRN Heparin Heparin Sodium (Porcine) 5,000 unit 06/01/17 16:08 Heparin - IVPUSH PRN PRN Heparin Heparin Sodium (Porcine) 25, 500 mls @ 20 mls/hr 06/01/17 16:15 06/02/17 17: 18 000 unit/ Sodium Chloride IV 950 unit/hr TITR TORIN 19 mls/hr Protocol Titration 1,000 UNIT/HR Potassium Chloride 40 meq 06/02/17 14:45 06/02/17 16:39 K-Dur - PO 06/03/17 10:01 40 meq DAILY TORIN Administration Spironolactone 25 mg 06/02/17 10:00 06/02/17 10:18 Aldactone - PO 25 mg DAILY [facility]ORIN Administration Valsartan 160 mg 06/02/17 10:00 06/02/17 10:18 Diovan - PO 160 mg DAILY [facility]ORIN Administration Warfarin Sodium 5 mg 06/02/17 17:45 Coumadin - PO DAILY@1800 [facility] Home Medications Medication Instructions Recorded Carvedilol [Coreg -] 6.25 mg PO BID #60 tablet 11/03/16 Furosemide [Lasix -] 20 mg PO DAILY #30 tablet 11/03/16 Spironolactone [Aldactone -] 25 mg PO DAILY #30 tablet 11/03/16 Valsartan [Diovan] 160 mg PO DAILY #30 tablet 11/03/16 Warfarin Sodium [Coumadin] 3 mg PO DAILY #30 tablet 11/03/16 EKG: A fib. DE depressin in V6 unchanged from previous EKG. Non ischemic EKG Echo from 10/2016: Mild MR LVEF Mildly decreased Severe TR Moderate pulm HTN CXR:Pulm vascular congestion from my read. Offical read pending ASSESSMENT/PLAN: 82M with multiple medical problems presents to the ED with dyspnea on exertion and unstable angina found to have elevated troponin. # Acute exacerbation of systolic/diastolic CHF: Continue Lasix IV and Aldactone , monitor Renal function # Unstable angina with elevated troponin, with hx of CAD s/p stent r/o ACS: with positive troponins possible due to demand ischemia. On heparin drip continue on Aspirin continue, coreg, chanda, lipitor Laboratory Tests 06/01/17 06/01/17 06/02/17 13:53 21:45 06:00 Troponin I 1.17 H* 1.09 H* 1.13 H* # Afib on coumadin with subtherapeutic INR: Rate is controlled at this time, on HEPARIN DRIP WITH COUMADIN # hypertensive emergency/HTN: better controlled now, continue coreg/diovan/ # Acute over CKD : will monitor # Acute hypokalemia on Kdur monitor the level PPx: Heparin gtt Visit type - Emergency Visit Emergency Visit: Yes ED Registration Date: 06/01/17 Care time: The patient presented to the Emergency Department on the above date and was hospitalized for further evaluation of their emergent condition. - New Patient This patient is new to me today: No - Critical Care Critical Care patient: No
[2017-06-02] MEDS: WARFARIN NA 5 MG TABLET (UD) PO SCH (18:11)
[2017-06-02] MEDS: ATORVASTATIN CA 40 MG TABLET (FP) PO SCH (22:02)
[2017-06-03] MEDS: FUROSEMIDE 40 MG/4 ML INJECTABLE VIAL IVPUSH SCH (06:27)
[2017-06-03 07:12] LABS: MCH 27.5 pg (25.7-33.7); MCHC 32.8 g/dl (32.0-35.9); MEAN CELL VOLUME 83.9 fl (80-96); MEAN PLT VOLUME 8.8 fl (7.5-11.1); PLATELET COUNT 130 K/MM3 (134-434); RDW 15.2 % (11.9-15.9); WHITE BLOOD COUNT 4.3 K/mm3 (4.0-10.0)
[2017-06-03 08:06] LABS: INR 1.37 (0.82-1.09); PROTHROMBIN TIME (PATIENT) 15.5 SEC (9.98-11.88)
--- NOTE | 2017-06-03 08:30 | PN ---
Progress Note (short form) - Note Progress Note: Chief Complaint: Events noted, notes reviewed, denies any chest pain, dyspnea improved History of Present Illness: Seen and examined on telemetry. Events noted, notes reviewed, denies any chest pain, dyspnea improved Echocardiography dated 10/30/2016 revealed Mild decrease in LV function, mod MR, mild AR and severe TR Medications: Current Medications Acetaminophen (Tylenol -) 650 mg PO Q6H PRN PRN Reason: FEVER OR PAIN Aspirin (Asa -) 81 mg PO DAILY [facility] Last Admin: 06/02/17 10:18 Dose: 81 mg Atorvastatin Calcium (Lipitor -) 40 mg PO HS [facility] Last Admin: 06/02/17 22:02 Dose: 40 mg Carvedilol (Coreg -) 6.25 mg PO BID [facility] Last Admin: 06/02/17 22:02 Dose: 6.25 mg Furosemide (Lasix Injection -) 40 mg IVPUSH BID@0600,1400 [facility] Last Admin: 06/03/17 06:27 Dose: 40 mg Heparin Sodium (Porcine) (Heparin -) 1,000 unit IVPUSH PRN PRN PRN Reason: Heparin Heparin Sodium (Porcine) (Heparin -) 5,000 unit IVPUSH PRN PRN PRN Reason: Heparin Heparin Sodium (Porcine) 25, (000 unit/ Sodium Chloride) 500 mls @ 20 mls/hr IV TITR TORIN; 1,000 UNIT/HR PRN Reason: Protocol Last Titration: 06/02/17 17:18 Dose: 950 unit/hr, 19 mls/hr Potassium Chloride (K-Dur -) 40 meq PO DAILY [facility] Stop: 06/03/17 10:01 Last Admin: 06/02/17 16:39 Dose: 40 meq Spironolactone (Aldactone -) 25 mg PO DAILY [facility] Last Admin: 06/02/17 10:18 Dose: 25 mg Valsartan (Diovan -) 160 mg PO DAILY [facility] Last Admin: 06/02/17 10:18 Dose: 160 mg Warfarin Sodium (Coumadin -) 5 mg PO DAILY@1800 [facility] Last Admin: 06/02/17 18:11 Dose: 5 mg Review of Systems Constitutional: denies Chills or Fever Respiratory: denies Cough or Sputum Production Cardiovascular: As noted above Gastrointestinal: denies Nausea, Vomiting, Diarrhea, Constipation or Abdominal Pain Genitourinary: No Symptoms Reported Musculoskeletal: No Symptoms Reported Vital Signs: Last Vital Signs Temp Pulse Resp BP Pulse Ox 97.5 F L 53 L 20 152/89 98 06/03/17 06:00 06/03/17 06:00 06/03/17 06:00 06/03/17 06:00 06/02/17 21:00 Intake & Output 05/31/17 06/01/17 06/02/17 06/03/17 23:59 23:59 23:59 23:59 Intake Total 40 140 228 Output Total 1000 2540 Balance -960 -2400 228 Weight 170 lb 166 lb 162 lb Constitutional: No Distress, Calm Neck: Supple Negative JVD No Bruit Respiratory: Clear to A&P Bilaterally Cardiovascular: S1 S2 Irregularly Irregular Grade 2/6 SM Gastrointestinal: Soft Benign Normal Bowel Sounds Ext: No Edema Labs: CBC, BMP 06/03/17 06:30 06/02/17 06:00 INR, PTT INR 1.37 (0.82-1.09) H 06/03/17 06:30 Assessment/Plan ASSESSMENT: 1. Acute on chronic class II-III NYHA classification systolic/diastolic failure , resolving 2. CAD post PCI/stent angina pectoris with evidence of demand ischemic injury 3. Hypertension 4. Persistent atrial fibrillation with sub-therapeutic INR 5. CKD 6. Hypokalemia PLAN: 1. Continue Lasix but change to PO and Aldactone with close monitoring of renal function 2. Continue ASA 3. Continue Diovan 4. Continue Carvedilol and titrate as tolerated, hemodynamics permitting 5. Continue Lipitor 6. Continue Heparin drip pending therapeutic Coumadin/as per INR 7. Ambulate Jeri Hurley M.D.
[2017-06-03] MEDS: VALSARTAN 160 MG TABLET (UD) PO SCH ×2 (08:59→21:41)
[2017-06-03] MEDS: FUROSEMIDE 40 MG TABLET (FP) PO SCH (08:59)
[2017-06-03] MEDS: POTASSIUM CHLORIDE TABS 20 MEQ TABLET.ER (FP) PO SCH (09:00)
[2017-06-03] MEDS: SPIRONOLACTONE 25 MG TABLET (FP) PO SCH (09:00)
[2017-06-03] MEDS: CARVEDILOL 6.25 MG TABLET (FP) PO SCH ×2 (09:00→21:41)
[2017-06-03] MEDS: ASPIRIN 81 MG CHEWABLE TABLETS PO SCH (09:00)
[2017-06-03 11:35] LABS: ANION GAP 10 (8-16); CALCIUM 8.2 mg/dL (8.5-10.1); CO2 27 mmol/L (21-32); CREATININE 1.7 mg/dL (0.7-1.3); GLUCOSE,RANDOM 127 mg/dL (74-106)
[2017-06-03] MEDS: WARFARIN NA 5 MG TABLET (UD) PO SCH (17:14)
[2017-06-03] MEDS: HEPARIN - 25,000 UNIT in SODIUM CHLORIDE 495 ML IV SCH (17:15)
--- NOTE | 2017-06-03 19:14 | PN ---
Progress Note (short form) - Note Progress Note: Patient is comfortable with no acute distress. No shortness of breath, walking around without any difficulty. Vital Signs Temperature 97.4 F L 06/03/17 18:11 Pulse Rate 74 06/03/17 18:11 Respiratory Rate 18 06/03/17 18:11 Blood Pressure 166/93 06/03/17 18:11 O2 Sat by Pulse Oximetry (%) 99 06/03/17 09:00 GENERAL: The patient is awake, alert, and fully oriented, in no acute distress. HEAD: Normal with no signs of trauma. EYES: PERRL, extraocular movements intact, sclera anicteric, conjunctiva clear. ENT: Ears normal, oropharynx clear without exudates, moist mucous membranes. NECK: Trachea midline, full range of motion, supple. LUNGS: decreased Breath sounds bl ,GAEBL, no wheezes, no crackles, no accessory muscle use. HEART: Regular rate and rhythm, S1, S2 positive, ERIKA 2/6 ,no rub or gallop. ABDOMEN: Soft, nontender, nondistended, normoactive bowel sounds, no guarding, no rebound, no hepatosplenomegaly, no masses. EXTREMITIES: 2+ pulses, warm, well-perfused, no edema. NEUROLOGICAL: Cranial nerves II through XII grossly intact. Normal speech, gait is steady . PSYCH: Normal mood, normal affect. SKIN: Warm, dry, normal turgor, no rashes or lesions noted CBCD WBC 4.3 K/mm3 (4.0-10.0) 06/03/17 06:30 RBC 4.82 M/mm3 (4.00-5.60) 06/03/17 06:30 Hgb 13.3 GM/dL (11.7-16.9) 06/03/17 06:30 Hct 40.5 % (35.4-49) 06/03/17 06:30 MCV 83.9 fl (80-96) 06/03/17 06:30 MCHC 32.8 g/dl (32.0-35.9) 06/03/17 06:30 RDW 15.2 % (11.9-15.9) 06/03/17 06:30 Plt Count 130 K/MM3 (134-434) L 06/03/17 06:30 MPV 8.8 fl (7.5-11.1) 06/03/17 06:30 CMP Sodium 144 mmol/L (136-145) 06/03/17 09:29 Potassium 3.3 mmol/L (3.5-5.1) L 06/03/17 09:29 Chloride 107 mmol/L (98-107) 06/03/17 09:29 Carbon Dioxide 27 mmol/L (21-32) 06/03/17 09:29 Anion Gap 10 (8-16) 06/03/17 09:29 BUN 28 mg/dL (7-18) H D 06/03/17 09:29 Creatinine 1.7 mg/dL (0.7-1.3) H 06/03/17 09:29 Creat Clearance w eGFR 44.69 (>60) 06/02/17 06:00 Random Glucose 127 mg/dL (74-106) H D 06/03/17 09:29 Calcium 8.2 mg/dL (8.5-10.1) L 06/03/17 09:29 Total Bilirubin 0.7 mg/dL (0.2-1.0) D 06/02/17 06:00 AST 28 U/L (15-37) 06/02/17 06:00 ALT 30 U/L (12-78) 06/02/17 06:00 Alkaline Phosphatase 102 U/L (45-117) 06/02/17 06:00 Total Protein 6.5 g/dl (6.4-8.2) 06/02/17 06:00 Albumin 3.1 g/dl (3.4-5.0) L 06/02/17 06:00 CARDIAC ENZYMES Creatine Kinase 90 IU/L (39-308) 06/02/17 06:00 Troponin I 1.13 ng/ml (0.00-0.05) H* 06/02/17 06:00 Current Medications Generic Name Dose Route Start Last Admin Trade Name Freq PRN Reason Stop Dose Admin Acetaminophen 650 mg 06/02/17 06:51 Tylenol - PO Q6H PRN FEVER OR PAIN Aspirin 81 mg 06/02/17 10:00 06/03/17 09:00 Asa - PO 81 mg DAILY TORIN Administration Atorvastatin Calcium 40 mg 06/02/17 22:00 06/02/17 22:02 Lipitor - PO 40 mg HS TORIN Administration Carvedilol 6.25 mg 06/01/17 22:00 06/03/17 09:00 Coreg - PO 6.25 mg BID TORIN Administration Furosemide 40 mg 06/03/17 09:00 06/03/17 08:59 Lasix - PO 40 mg DAILY TORIN Administration Heparin Sodium (Porcine) 1,000 unit 06/01/17 16:08 Heparin - IVPUSH PRN PRN Heparin Heparin Sodium (Porcine) 5,000 unit 06/01/17 16:08 Heparin - IVPUSH PRN PRN Heparin Heparin Sodium (Porcine) 25, 500 mls @ 20 mls/hr 06/01/17 16:15 06/03/17 17: 15 000 unit/ Sodium Chloride IV 800 unit/hr TITR TORIN 16 mls/hr Protocol Administration 1,000 UNIT/HR Spironolactone 25 mg 06/02/17 10:00 06/03/17 09:00 Aldactone - PO 25 mg DAILY TORIN Administration Valsartan 160 mg 06/03/17 10:00 06/03/17 08:59 Diovan - PO 160 mg BID TORIN Administration Warfarin Sodium 5 mg 06/02/17 18:00 06/03/17 17:14 Coumadin - PO 5 mg DAILY@1800 TORIN Administration Home Medications Medication Instructions Recorded Carvedilol [Coreg -] 6.25 mg PO BID #60 tablet 11/03/16 Furosemide [Lasix -] 20 mg PO DAILY #30 tablet 11/03/16 Spironolactone [Aldactone -] 25 mg PO DAILY #30 tablet 11/03/16 Valsartan [Diovan] 160 mg PO DAILY #30 tablet 11/03/16 Warfarin Sodium [Coumadin] 3 mg PO DAILY #30 tablet 11/03/16 Laboratory Tests 06/01/17 06/01/17 06/02/17 13:53 21:45 06:00 Troponin I 1.17 H* 1.09 H* 1.13 H* EKG: A fib. PA depressin in V6 unchanged from previous EKG. Non ischemic EKG Echo from 10/2016: Mild MR LVEF Mildly decreased Severe TR Moderate pulm HTN CXR:Pulm vascular congestion from my read. Offical read pending ASSESSMENT/PLAN: 82M with multiple medical problems presents to the ED with dyspnea on exertion and unstable angina found to have elevated troponin. # Acute exacerbation of systolic/diastolic CHF: Continue Lasix IV and Aldactone ,keep monitoring Renal function # Elevated troponin, due to demand Ischemia with hx of CAD s/p stent r/o ACS: Continue heparin drip per protocol , also continue his Coumadin since he is non therapeutic , On Aspirin, coreg, diovan, lipitor # Afib on coumadin with subtherapeutic INR 1.3 : Rate is controlled at this time , on HEPARIN DRIP WITH COUMADIN continue since sub-therapeutic # hypertensive emergency/HTN: better controlled now, continue coreg/diovan and Lasix # Acute over CKD : continue monitoring # Acute hypokalemia: continue PO Kdur repeat BMP in am. PPx: Heparin gtt Visit type - Emergency Visit Emergency Visit: Yes ED Registration Date: 06/01/17 Care time: The patient presented to the Emergency Department on the above date and was hospitalized for further evaluation of their emergent condition. - New Patient This patient is new to me today: No - Critical Care Critical Care patient: No
[2017-06-03] MEDS: ACETAMINOPHEN 325 MG TABLET (FP) PO PRN (20:24)
[2017-06-03] MEDS: ATORVASTATIN CA 40 MG TABLET (FP) PO SCH (21:41)
[2017-06-04 07:44] LABS: MCH 27.5 pg (25.7-33.7); MCHC 32.5 g/dl (32.0-35.9); MEAN CELL VOLUME 84.6 fl (80-96); MEAN PLT VOLUME 9.1 fl (7.5-11.1); PLATELET COUNT 138 K/MM3 (134-434); RDW 15.5 % (11.9-15.9); WHITE BLOOD COUNT 4.6 K/mm3 (4.0-10.0)
--- NOTE | 2017-06-04 07:57 | PN ---
Physical Exam: SUBJECTIVE: Patient seen and examined at bedside. OBJECTIVE: Vital Signs Period Temp Pulse Resp BP Sys/Ayala Pulse Ox Last 24 Hr 97.4 F-98.1 F 57-78 16-20 149-166/79-104 98-99 GENERAL: Awake, alert, and fully oriented, in no acute distress. EYES: Pupils equal, round and reactive to light, extraocular movements intact, sclera anicteric EARS, NOSE, THROAT: Moist mucous membranes. NECK: No JVD LUNGS: CTAB HEART: Irregularly Irregular S1 S2 heard 3/6 non radiating murmur heard at RUSB ABDOMEN: Soft, nontender, not distended, normoactive bowel sounds, MUSCULOSKELETAL: No bony deformities or tenderness. No CVA tenderness. UPPER EXTREMITIES: warm, well-perfused. No peripheral edema. LOWER EXTREMITIES: warm, well-perfused. No calf tenderness. No peripheral edema. NEUROLOGICAL: Cranial nerves II-XII grossly intact. Normal speech. PSYCHIATRIC: Cooperative. Good eye contact. Appropriate mood and affect. SKIN: Warm, dry, normal turgor, no rashes or lesions noted Laboratory Results - last 24 hr 06/03/17 06/03/17 06/03/17 06:30 09:29 13:49 WBC RBC Hgb Hct MCV MCH MCHC RDW Plt Count MPV PT with INR 15.50 H INR 1.37 H PTT (Actin FS) 82.7 H Sodium 144 Potassium 3.3 L Chloride 107 Carbon Dioxide 27 Anion Gap 10 BUN 28 H D Creatinine 1.7 H Random Glucose 127 H D Calcium 8.2 L 06/04/17 05:35 WBC 4.6 RBC 4.74 Hgb 13.0 Hct 40.1 MCV 84.6 MCH 27.5 MCHC 32.5 RDW 15.5 Plt Count 138 MPV 9.1 PT with INR INR PTT (Actin FS) Sodium Potassium Chloride Carbon Dioxide Anion Gap BUN Creatinine Random Glucose Calcium Active Medications Generic Name Dose Route Start Last Admin Trade Name Freq PRN Reason Stop Dose Admin Acetaminophen 650 mg 06/02/17 06:51 06/03/17 20:24 Tylenol - PO 650 mg Q6H PRN Administration FEVER OR PAIN Aspirin 81 mg 06/02/17 10:00 06/03/17 09:00 Asa - PO 81 mg DAILY TORIN Administration Atorvastatin Calcium 40 mg 06/02/17 22:00 06/03/17 21:41 Lipitor - PO 40 mg HS TORIN Administration Carvedilol 6.25 mg 06/01/17 22:00 06/03/17 21:41 Coreg - PO 6.25 mg BID TORIN Administration Furosemide 40 mg 06/03/17 09:00 06/03/17 08:59 Lasix - PO 40 mg DAILY TORIN Administration Heparin Sodium (Porcine) 1,000 unit 06/01/17 16:08 Heparin - IVPUSH PRN PRN Heparin Heparin Sodium (Porcine) 5,000 unit 06/01/17 16:08 Heparin - IVPUSH PRN PRN Heparin Heparin Sodium (Porcine) 25, 500 mls @ 20 mls/hr 06/01/17 16:15 06/03/17 17: 15 000 unit/ Sodium Chloride IV 800 unit/hr TITR TORIN 16 mls/hr Protocol Administration 1,000 UNIT/HR Spironolactone 25 mg 06/02/17 10:00 06/03/17 09:00 Aldactone - PO 25 mg DAILY TORIN Administration Valsartan 160 mg 06/03/17 10:00 06/03/17 21:41 Diovan - PO 160 mg BID TORIN Administration Warfarin Sodium 5 mg 06/02/17 18:00 06/03/17 17:14 Coumadin - PO 5 mg DAILY@1800 TORIN Administration ASSESSMENT/PLAN: 82M with multiple medical problems presents to the ED with dyspnea on exertion and unstable angina found to have elevated troponin. Acute exacerbation of systolic CHF: Admit to inpatient telemetry Continue lasix 40mg po daily cardiology consult appreciated trend labs continue aldactone continue coreg continue ARB-valsartan Daily weights weight creased by about 5Kg overall from admission strict I/O's can not increase coreg at this time as his HR wont allow it currently in mid 50' s-60's Unstable angina/elevated troponin/ CAD s/p stent r/o ACS: unlikely to be ischemia. likely a combination of demand with CHF exacerbation with poor clearance of troponins from CKD Continue Aspirin continue lipitor Cardiology consult appreciated Cont heparin gtt until therapeutic on coumadin hypertensive emergency/HTN: Patient's BP 208/115 in ED upon arrival with troponinemia-resolved BP better controlled at this time continue diovan continue lasix continue coreg cotynineu aldactone telemetry monitoring cardiology consult appreciated uptitrate medications PRN Afib on coumadin with subtherapeutic INR: Rate is controlled at this time continue coreg start heparin gtt and trend PTT per protocol get stool for occult blood Increase coumadin to 5mg tonight CKD: Creatinine remains around baseline from admission and last admission monitor Cr daily renally dose meds FEN: No IVF hypokalemia replete PRN. Continue to trend electrolytes. Cardiac diet PPx: Heparin gtt/coumadin No GI PPx indicated PT consult to avoid deconditioning Visit type - Emergency Visit Emergency Visit: Yes ED Registration Date: 06/01/17 Care time: The patient presented to the Emergency Department on the above date and was hospitalized for further evaluation of their emergent condition. - New Patient This patient is new to me today: No - Critical Care Critical Care patient: No - Discharge Referral Referred to [facility] Med P.C.: No
[2017-06-04 08:14] LABS: ANION GAP 12 (8-16); CALCIUM 8.3 mg/dL (8.5-10.1); CO2 22 mmol/L (21-32); CREATININE 1.5 mg/dL (0.7-1.3); GLUCOSE,RANDOM 88 mg/dL (74-106)
[2017-06-04 08:24] LABS: INR 2.19 (0.82-1.09); PROTHROMBIN TIME (PATIENT) 24.7 SEC (9.98-11.88)
[2017-06-04] MEDS: SPIRONOLACTONE 25 MG TABLET (FP) PO SCH (10:09)
[2017-06-04] MEDS: VALSARTAN 160 MG TABLET (UD) PO SCH (10:09)
[2017-06-04] MEDS: ASPIRIN 81 MG CHEWABLE TABLETS PO SCH (10:10)
[2017-06-04] MEDS: CARVEDILOL 6.25 MG TABLET (FP) PO SCH (10:10)
[2017-06-04] MEDS: FUROSEMIDE 40 MG TABLET (FP) PO SCH (10:10)
[2017-06-04] MEDS ORDERED: POTASSIUM CHLORIDE TABS 20 MEQ TABLET.ER (FP) PO ONE ×2 (11:15→11:30)
[2017-06-04] MEDS: ACETAMINOPHEN 325 MG TABLET (FP) PO PRN (11:22)
--- NOTE | 2017-06-04 11:27 | PN ---
Teaching Attending Note Name of Resident: Elena Ford ATTENDING PHYSICIAN STATEMENT I saw and evaluated the patient. I reviewed the resident's note and discussed the case with the resident. I agree with the resident's findings and plan as documented. SUBJECTIVE: Patient is doing well with No acute distress, no shortness of breath. No BRENNER or at rest. OBJECTIVE: Vital Signs Temperature 97.6 F 06/04/17 07:21 Pulse Rate 57 L 06/04/17 07:21 Respiratory Rate 18 06/04/17 07:21 Blood Pressure 152/79 06/04/17 07:21 O2 Sat by Pulse Oximetry (%) 100 06/04/17 09:00 CBCD WBC 4.6 K/mm3 (4.0-10.0) 06/04/17 05:35 RBC 4.74 M/mm3 (4.00-5.60) 06/04/17 05:35 Hgb 13.0 GM/dL (11.7-16.9) 06/04/17 05:35 Hct 40.1 % (35.4-49) 06/04/17 05:35 MCV 84.6 fl (80-96) 06/04/17 05:35 MCHC 32.5 g/dl (32.0-35.9) 06/04/17 05:35 RDW 15.5 % (11.9-15.9) 06/04/17 05:35 Plt Count 138 K/MM3 (134-434) 06/04/17 05:35 MPV 9.1 fl (7.5-11.1) 06/04/17 05:35 CMP Sodium 143 mmol/L (136-145) 06/04/17 05:35 Potassium 3.9 mmol/L (3.5-5.1) 06/04/17 05:35 Chloride 109 mmol/L (98-107) H 06/04/17 05:35 Carbon Dioxide 22 mmol/L (21-32) 06/04/17 05:35 Anion Gap 12 (8-16) 06/04/17 05:35 BUN 31 mg/dL (7-18) H 06/04/17 05:35 Creatinine 1.5 mg/dL (0.7-1.3) H 06/04/17 05:35 Creat Clearance w eGFR 44.69 (>60) 06/02/17 06:00 Random Glucose 88 mg/dL (74-106) D 06/04/17 05:35 Calcium 8.3 mg/dL (8.5-10.1) L 06/04/17 05:35 Total Bilirubin 0.7 mg/dL (0.2-1.0) D 06/02/17 06:00 AST 28 U/L (15-37) 06/02/17 06:00 ALT 30 U/L (12-78) 06/02/17 06:00 Alkaline Phosphatase 102 U/L (45-117) 06/02/17 06:00 Total Protein 6.5 g/dl (6.4-8.2) 06/02/17 06:00 Albumin 3.1 g/dl (3.4-5.0) L 06/02/17 06:00 CARDIAC ENZYMES Creatine Kinase 90 IU/L (39-308) 06/02/17 06:00 Troponin I 1.13 ng/ml (0.00-0.05) H* 06/02/17 06:00 Current Medications Generic Name Dose Route Start Last Admin Trade Name Freq PRN Reason Stop Dose Admin Acetaminophen 650 mg 06/02/17 06:51 06/04/17 11:22 Tylenol - PO 650 mg Q6H PRN Administration FEVER OR PAIN Aspirin 81 mg 06/02/17 10:00 06/04/17 10:10 Asa - PO 81 mg DAILY TORIN Administration Atorvastatin Calcium 40 mg 06/02/17 22:00 06/03/17 21:41 Lipitor - PO 40 mg HS TORIN Administration Carvedilol 6.25 mg 06/01/17 22:00 06/04/17 10:10 Coreg - PO 6.25 mg BID TORIN Administration Furosemide 40 mg 06/03/17 09:00 06/04/17 10:10 Lasix - PO 40 mg DAILY TORIN Administration Potassium Chloride 20 meq 06/04/17 11:22 K-Dur - PO 06/04/17 11:23 ONCE ONE Spironolactone 25 mg 06/02/17 10:00 06/04/17 10:09 Aldactone - PO 25 mg DAILY TORIN Administration Valsartan 160 mg 06/03/17 10:00 06/04/17 10:09 Diovan - PO 160 mg BID TORIN Administration Warfarin Sodium 5 mg 06/02/17 18:00 06/03/17 17:14 Coumadin - PO 5 mg DAILY@1800 [facility] Administration Home Medications Medication Instructions Recorded Carvedilol [Coreg -] 6.25 mg PO BID #60 tablet 11/03/16 Furosemide [Lasix -] 20 mg PO DAILY #30 tablet 11/03/16 Spironolactone [Aldactone -] 25 mg PO DAILY #30 tablet 11/03/16 Valsartan [Diovan] 160 mg PO DAILY #30 tablet 11/03/16 Warfarin Sodium [Coumadin] 3 mg PO DAILY #30 tablet 11/03/16 Home Medications Medication Instructions Recorded Aspirin [ASA -] 81 mg PO DAILY #100 tab.chew 06/04/17 Atorvastatin Ca [Lipitor] 40 mg PO HS #30 tablet 06/04/17 Carvedilol [Coreg -] 6.25 mg PO BID #60 tablet 06/04/17 Furosemide [Lasix -] 40 mg PO DAILY #30 tablet 06/04/17 Miscellaneous Drug Not In Syst 1 each ASDIR #1 misc 06/04/17 [Outpatient Lab Test] Miscellaneous Drug Not In Syst 1 each ASDIR #1 misc 06/04/17 [Outpatient Lab Test] Potassium Chloride [K-Dur -] 20 meq PO DAILY #5 tablet.er 06/04/17 Spironolactone [Aldactone -] 25 mg PO DAILY #30 tablet 06/04/17 Valsartan [Diovan] 160 mg PO BID #60 tablet 06/04/17 Warfarin Sodium 4 mg PO HS #30 tablet 06/04/17 PE: per resident's note LUNGS: CTA BL EKG: A fib. IN depression in V6 unchanged from previous EKG. Non ischemic EKG Echo from 10/2016: Mild MR LVEF Mildly decreased Severe TR Moderate pulm HTN CXR:Pulm vascular congestion from my read. Offical read pending ASSESSMENT/PLAN: Patient is a 82yo male with multiple medical problems presents to the ED with dyspnea on exertion and unstable angina found to have elevated troponin. # Acute exacerbation of systolic/diastolic CHF: discussed with cardiology , ok to discharge the patient on Po lasix s/p Lasix IV , on aldactone continue . # Elevated troponin, with hx of CAD s/p stent r/o ACS: due to demand ischemia , INR within Nl limit today discontinue heparin drip continue on Coumadin 4mg po daily. # Afib on coumadin with therapeutic INR now, in 2.0's : and rate is controlled at this time. # Hypertensive emergency: better controlled now, continue meds coreg/diovan/ lassix # Acute over CKD : will monitor # s/p acute hypokalemia , repeleted , now is normal will give him 5 more days of KDur and will stop potassium and monitor in the clinic K level [facility] eth patient is on Diovan/Spironolactone Discharge patient home. 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 follow with the clinic for follow up INR and Potassium Level
[2017-06-04 12:01] VITALS: BP 166/89; PULSE 54; TEMP 97.4
--- NOTE | 2017-06-04 12:05 | DS ---
Physical Exam: SUBJECTIVE: Patient seen and examined OBJECTIVE: Vital Signs Period Temp Pulse Resp BP Sys/Ayala Pulse Ox Last 24 Hr 97.4 F-98.1 F 54-78 16-18 152-166/79-98 98-100 PHYSICAL EXAM GENERAL: Awake, alert, and fully oriented, in no acute distress. EYES: Pupils equal, round and reactive to light, extraocular movements intact, sclera anicteric EARS, NOSE, THROAT: Moist mucous membranes. NECK: No JVD LUNGS: CTAB HEART: Irregularly Irregular S1 S2 heard 3/6 non radiating murmur heard at RUSB ABDOMEN: Soft, nontender, not distended, normoactive bowel sounds, MUSCULOSKELETAL: No bony deformities or tenderness. No CVA tenderness. UPPER EXTREMITIES: warm, well-perfused. No peripheral edema. LOWER EXTREMITIES: warm, well-perfused. No calf tenderness. No peripheral edema. NEUROLOGICAL: Cranial nerves II-XII grossly intact. Normal speech. PSYCHIATRIC: Cooperative. Good eye contact. Appropriate mood and affect. SKIN: Warm, dry, normal turgor, no rashes or lesions noted LABS Laboratory Results - last 24 hr 06/03/17 06/04/17 06/04/17 13:49 05:35 05:35 WBC 4.6 RBC 4.74 Hgb 13.0 Hct 40.1 MCV 84.6 MCH 27.5 MCHC 32.5 RDW 15.5 Plt Count 138 MPV 9.1 PT with INR INR PTT (Actin FS) 82.7 H 70.1 H Sodium Potassium Chloride Carbon Dioxide Anion Gap BUN Creatinine Random Glucose Calcium 06/04/17 06/04/17 05:35 05:35 WBC RBC Hgb Hct MCV MCH MCHC RDW Plt Count MPV PT with INR 24.70 H INR 2.19 H D PTT (Actin FS) Sodium 143 Potassium 3.9 Chloride 109 H Carbon Dioxide 22 Anion Gap 12 BUN 31 H Creatinine 1.5 H Random Glucose 88 D Calcium 8.3 L HOSPITAL COURSE: Date of Admission:06/01/17 Date of Discharge: 06/04/17 82M PMH of systolic CHF CAD s/p stent x2 A fib on Coumadin HTN and possible CKD based on previous labs presents to the ED with a chief complaint of shortness of breath, worsening dyspnea on exertion and worsening anginal symptoms. Per patient he used to be able to walk around his apartment and now is only able to walk a few steps before he gets tired. His chest pain has been on and off but recently his chest pain has been getting worse and coming on with less strenuous activity. Patient was also noted to have a subtherapeutic INR and was started on heparin gtt until INR therapeutic. Patient's coumadin was increased. Patient also had hypertensive emergency upon arrival. Seen by cardiology, diuresed, and medications adjusted. stable for discharge. Minutes to complete discharge: 45 Discharge Summary Reason For Visit: CHF, ELEVATED TROPONIN LEVEL Current Active Problems Acute on chronic diastolic CHF (congestive heart failure) (Acute) Atrial fibrillation with controlled ventricular response (Acute) CHF (congestive heart failure) (Acute) Coronary artery disease (Acute) Elevated troponin (Acute) Hypertensive cardiomyopathy (Acute) Hypokalemia (Acute) Subendocardial ischemia (Acute) Chronic kidney disease (CKD) (Chronic) Condition: Improved - Instructions Diet, Activity, Other Instructions: you must take all your medications as prescribed this is very important We will increase your coumadin to 4mg every day you need to check your INR with a blood test in 2 day. We will give you a prescription. 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 Please take notice of all your medications as many of them have changed either dose or frequency Increase coumadin to 4mg valsartan will be 160mg twice a day you will take lipitor every night you will be on aspirin everyday continue the coreg (Carvedilol) continue the aldactone (spironolactone) It was a pleasure taking care of you If you would like a local primary care doctore you can see Me Dr. Ernesto Bell on wednesdays from at [address] [place] [address] Call [phone] to make an appointment with Dr. Ernesto Bell . If you want to change your doctor on your insurance card put it under Dr. Elroy Hull. Referrals: Artem Weiner [Primary Care Provider] - 1 Week Ernesto Bell RES [Resident] - 1 Week (Call [phone] for appointment on wednesdays 1-430pm ) Elroy Hull MD [Staff Physician] - 1 Week (you can schedule an appointment at this number with Dr. Ernesto Bell on sunday from 1-430pm The ndoctor for the insurance card is Dr. Elroy Hull ) Disposition: HOME - Home Medications Comprehensive Discharge Medication List: Ambulatory Orders Aspirin [ASA -] 81 mg PO DAILY #100 tab.chew 06/04/17 Atorvastatin Ca [Lipitor] 40 mg PO HS #30 tablet 06/04/17 Carvedilol [Coreg -] 6.25 mg PO BID #60 tablet 06/04/17 Furosemide [Lasix -] 40 mg PO DAILY #30 tablet 06/04/17 Miscellaneous Drug Not In Syst [Outpatient Lab Test] 1 each ASDIR #1 misc Miscellaneous Drug Not In Syst [Outpatient Lab Test] 1 each ASDIR #1 misc Potassium Chloride 20 meq PO DAILY #30 tablet.er 06/04/17 Spironolactone [Aldactone -] 25 mg PO DAILY #30 tablet 06/04/17 Valsartan [Diovan] 160 mg PO BID #60 tablet 06/04/17 Warfarin Sodium 4 mg PO HS #30 tablet 06/04/17 This patient is new to me today: No Emergency Visit: Yes ED Registration Date: 06/01/17 Care time: The patient presented to the Emergency Department on the above date and was hospitalized for further evaluation of their emergent condition. Critical Care patient: No - Discharge Referral [facility]erred to [facility] Med P.C.: No
--- NOTE | 2017-06-04 13:10 | PN ---
Progress Note, Physician Chief Complaint: Events noted Feels better Complains of low back pain History of Present Illness: Patient was seen and examined. Awake and alert. Chart was reviewed Denies chest pain, SOB or palpitations - Current Medication List Current Medications: Active Medications Acetaminophen (Tylenol -) 650 mg PO Q6H PRN PRN Reason: FEVER OR PAIN Last Admin: 06/04/17 11:22 Dose: 650 mg Aspirin (Asa -) 81 mg PO DAILY [facility] Last Admin: 06/04/17 10:10 Dose: 81 mg Atorvastatin Calcium (Lipitor -) 40 mg PO HS [facility] Last Admin: 06/03/17 21:41 Dose: 40 mg Carvedilol (Coreg -) 6.25 mg PO BID [facility] Last Admin: 06/04/17 10:10 Dose: 6.25 mg Furosemide (Lasix -) 40 mg PO DAILY [facility] Last Admin: 06/04/17 10:10 Dose: 40 mg Spironolactone (Aldactone -) 25 mg PO DAILY [facility] Last Admin: 06/04/17 10:09 Dose: 25 mg Valsartan (Diovan -) 160 mg PO BID [facility] Last Admin: 06/04/17 10:09 Dose: 160 mg Warfarin Sodium (Coumadin -) 5 mg PO DAILY@1800 [facility] Last Admin: 06/03/17 17:14 Dose: 5 mg - Objective Vital Signs: Vital Signs Temperature 97.4 F L 06/04/17 10:00 Pulse Rate 54 L 06/04/17 10:00 Respiratory Rate 18 06/04/17 10:00 Blood Pressure 166/89 06/04/17 10:00 O2 Sat by Pulse Oximetry (%) 100 06/04/17 09:00 Neck: Yes: Supple Cardiovascular: Yes: Regular Rate and Rhythm, Murmur (Soft SM), S1, S2 Respiratory: Yes: CTA Bilaterally Gastrointestinal: Yes: Normal Bowel Sounds, Soft. No: Tenderness Edema: No Additional Findings/Remarks: Review of Systems Constitutional: denies Chills or Fever Respiratory: denies Cough or Sputum Production Cardiovascular: denies: chest pain, SOB or palpitations Gastrointestinal: denies Nausea, Vomiting, Diarrhea, Constipation or Abdominal Pain Musculoskeletal: (+) back pain Neuro: denies: seizure, syncope Labs: CBC, BMP 06/04/17 05:35 06/04/17 05:35 INR, PTT INR 2.19 (0.82-1.09) H D 06/04/17 05:35 Problem List - Problems (1) Acute on chronic diastolic CHF (congestive heart failure) Code(s): I50.33 - ACUTE ON CHRONIC DIASTOLIC (CONGESTIVE) HEART FAILURE (2) Atrial fibrillation with controlled ventricular response Code(s): I48.91 - UNSPECIFIED ATRIAL FIBRILLATION (3) Coronary artery disease Code(s): I25.10 - ATHSCL HEART DISEASE OF [place] CORONARY ARTERY W/O ANG PCTRS Qualifiers: Coronary Disease-Associated Artery/Lesion type: robinson artery [place] vs. transplanted heart: robinson heart Associated angina: with stable angina Qualified Code(s): I25.118 - Atherosclerotic heart disease of [place]inson coronary artery with other forms of angina pectoris (4) Subendocardial ischemia Code(s): I24.8 - OTHER FORMS OF ACUTE ISCHEMIC HEART DISEASE (5) Chronic kidney disease (CKD) Code(s): N18.9 - CHRONIC KIDNEY DISEASE, UNSPECIFIED Qualifiers: Chronic kidney disease stage: stage 3 (moderate) Qualified Code(s): N18.3 - Chronic kidney disease, stage 3 (moderate) (6) Pulmonary hypertension Code(s): I27.2 - OTHER SECONDARY PULMONARY HYPERTENSION * DO NOT USE * (7) S/P coronary artery stent placement Code(s): Z95.5 - PRESENCE OF CORONARY ANGIOPLASTY IMPLANT AND GRAFT Assessment/Plan 1. Acute on chronic class II-III NYHA classification systolic/diastolic failure , resolving 2. CAD post PCI/stent angina pectoris with evidence of demand ischemic injury 3. Hypertension 4. Persistent atrial fibrillation 5. CKD 6. Hypokalemia PLAN: 1. Continue Lasix PO and Aldactone with close monitoring of renal function 2. Continue ASA 3. Continue Diovan 4. Continue Carvedilol and titrate as tolerated 5. Continue Lipitor 6. Coumadin/as per INR and stop Heparin drip 7. Ambulate and discharge planning Piter Montes MD
== END 2017-06-04 13:42 | disposition home or self-care (01) | DRG 291 ==
LOC: JER 12:49 → JERBED 16:11 → J4S 21:09
PROVIDERS: ADMIT Internal Medicine; ATTEND Internal Medicine
DX: I13.0 Hypertensive heart and chronic kidney disease with heart failure and stage 1 through stage 4 chronic kidney disease, or unspecified chronic kidney disease (principal); I50.43 Acute on chronic combined systolic (congestive) and diastolic (congestive) heart failure; I16.1 Hypertensive emergency; I48.1 Persistent atrial fibrillation; I24.8 Other forms of acute ischemic heart disease; N18.9 Chronic kidney disease, unspecified; Z79.01 Long term (current) use of anticoagulants; I36.1 Nonrheumatic tricuspid (valve) insufficiency; I35.1 Nonrheumatic aortic (valve) insufficiency; Z95.5 Presence of coronary angioplasty implant and graft; I25.110 Atherosclerotic heart disease of native coronary artery with unstable angina pectoris; E87.6 Hypokalemia; I27.20 Pulmonary hypertension, unspecified
CPT/HCPCS: 36415; 71010-TC; 80048; 80053; 80061; 81003; 81015; 82550; 82803; 83036; 83721; 83735; 83880; 84100; 84443; 84484; 85025; 85027; 85610; 85730; 93005; 93010; 97164-GP; 99284-25; J1644

== ENCOUNTER 2017-06-16 07:36 | Inpatient (IN) | payer OTHER ==
--- NOTE | 2017-06-16 08:02 | PDOC ---
Attending Attestation - Resident Resident Name: Lester Luciano - ED Attending Attestation I have performed the following: I have examined & evaluated the patient, The case was reviewed & discussed with the resident, I agree w/resident's findings & plan, Exceptions are as noted - HPI HPI: 82 yo M history HTN, CHF, HL presents with 2 day history of SOB. He states it is worse with lying flat, better with sitting up. Denies fever. +Cough. Denies chest pain. - Physicial Exam PE: GENERAL: Awake, alert, and fully oriented, in no acute distress HEAD: No signs of trauma EYES: PERRLA, EOMI, sclera anicteric, conjunctiva clear ENT: Auricles normal inspection, hearing grossly normal, nares patent, oropharynx clear without exudates. Moist mucosa NECK: Normal ROM, supple, no lymphadenopathy, JVD, or masses LUNGS: Breath sounds equal, clear to auscultation bilaterally. No wheezes, and no crackles HEART: Regular rate and rhythm, normal S1 and S2, no murmurs, rubs or gallops ABDOMEN: Soft, nontender, normoactive bowel sounds. No guarding, no rebound. No masses EXTREMITIES: Normal range of motion, no edema. No clubbing or cyanosis. No cords, erythema, or tenderness NEUROLOGICAL: Cranial nerves II through XII grossly intact. Normal speech, normal gait SKIN: Warm, Dry, normal turgor, no rashes or lesions noted. - Medical Decision Making Pt with history of CHF, presenting with SOB, orthopnea, PND. Will likely require admission for CHF exacerbation. Patient has history of R upper lobe opacity, previous CXRs recommended CT, which has not been done. Will obtain CT to further evaluate.
[2017-06-16 08:13] VITALS: BMI 24.6
--- NOTE | 2017-06-16 08:18 | PDOC ---
History of Present Illness - General Chief Complaint: Shortness of Breath Stated Complaint: SHORTNESS OF BREATH,HEADACHE Time Seen by Provider: 06/16/17 07:41 History Source: Patient Exam Limitations: No Limitations - History of Present Illness Initial Comments: 06/16/17 08:17 82M PMH of systolic CHF CAD s/p stent x2 A fib on Coumadin HTN and possible CKD based on previous labs presents to the ED with a chief complaint of shortness of breath, cough and 6/10 non-radiating right and left chest pain since 2 am last night. Patient admitted last week from 06/01 to 06/04 for acute on chronic CHF. 06/16/17 08:20 Doesn't have a medical specialist. Past History - Past Medical History Allergies/Adverse Reactions: Allergies Allergy/AdvReac Type Severity Reaction Status Date / Time No Known Allergies Allergy Verified 06/16/17 09:00 Home Medications: Ambulatory Orders Aspirin [ASA -] 81 mg PO DAILY #100 tab.chew 06/04/17 Atorvastatin Ca [Lipitor] 40 mg PO HS #30 tablet 06/04/17 Carvedilol [Coreg -] 6.25 mg PO BID #60 tablet 06/04/17 Furosemide [Lasix -] 40 mg PO DAILY #30 tablet 06/04/17 Miscellaneous Drug Not In Syst [Outpatient Lab Test] 1 each ASDIR #1 misc Miscellaneous Drug Not In Syst [Outpatient Lab Test] 1 each ASDIR #1 misc Potassium Chloride [K-Dur -] 20 meq PO DAILY #5 tablet.er 06/04/17 Spironolactone [Aldactone -] 25 mg PO DAILY #30 tablet 06/04/17 Valsartan [Diovan] 160 mg PO BID #60 tablet 06/04/17 Warfarin Sodium 4 mg PO HS #30 tablet 06/04/17 Anemia: No Asthma: No Cancer: No Cardiac Disorders: Yes CVA: No COPD: No CHF: Yes Dementia: No Diabetes: No GI Disorders: No Disorders: No HTN: Yes Hypercholesterolemia: Yes Liver Disease: No Seizures: No Thyroid Disease: No - Surgical History Abdominal Surgery: No Appendectomy: No Cardiac Surgery: Yes (stent) Cholecystectomy: No Lung Surgery: No Neurologic Surgery: No Orthopedic Surgery: No - Immunization History Immunization Up to Date: Yes - Suicide/Smoking/Psychosocial Hx Smoking History: Never smoked Have you smoked in the past 12 months: No Information on smoking cessation initiated: No Hx Alcohol Use: No Drug/Substance Use Hx: No Substance Use Type: None Hx Substance Use Treatment: No Cardiac Specific PMH - Complaint Specific PMHX Pacemaker: No Review of Systems - Review of Systems Able to Perform ROS?: Yes Is the patient limited Tamazight proficient: Yes Constitutional: No: Symptoms Reported HEENTM: Yes: Throat Pain Respiratory: Yes: Cough, Shortness of Breath Cardiac (ROS): Yes: Chest Pain, Irregular Heart Rate, Chest Tightness ABD/GI: No: Symptoms Reported : No: Symptoms Reported Musculoskeletal: No: Symptoms Reported Integumentary: No: Symptoms Reported All Other Systems: Reviewed and Negative *Physical Exam - Vital Signs Last Vital Signs Temp Pulse Resp BP Pulse Ox 67 17 213/108 95 06/16/17 07:54 06/16/17 07:54 06/16/17 07:54 06/16/17 07:54 - Physical Exam General Appearance: Yes: Nourished, Appropriately Dressed. No: Apparent Distress HEENT: positive: EOMI, EDILMA, Normal ENT Inspection Neck: positive: Trachea midline. negative: Tender Respiratory/Chest: positive: Lungs Clear, Normal Breath Sounds. negative: Chest Tender, Respiratory Distress Cardiovascular: positive: S1, S2, Irregularly Irregular Gastrointestinal/Abdominal: positive: Normal Bowel Sounds, Soft. negative: Tender Neurologic: positive: Alert, Normal Mood/Affect Heart Score/ECG Review - History History: Highly suspicious - Electrocardiogram EKG: Non specific repolarization disturbance - Age Age: >/= 65 - Risk Factors Risk Factors Heart Score: Yes Hx Hypercholesterolemia, Yes Hx Hypertension, No Hx Diabetes, No Smoking History, Yes Positive family hx of cardiac disease, No Hx Obesity Based on the list above the patient has:: >/=3 risk factors or Hx atherosclerotic disease - Troponin Troponin: 1-3x normal limit - Score Heart Score - Total: 8 - ECG Intrepretation Rhythm: PVC(s) - ST and T Prolonged Q-T Interval: Yes - ECG Impressions Normal ECG: No ED Treatment Course - LABORATORY CBC & Chemistry Diagram: 06/16/17 08:00 06/16/17 08:00 - ADDITIONAL ORDERS Additional order review: Laboratory Results 06/16/17 06/16/17 06/16/17 09:15 08:00 08:00 PT with INR 17.10 H INR 1.51 H D Sodium Potassium Chloride Carbon Dioxide Anion Gap BUN Creatinine Creat Clearance w eGFR Random Glucose Calcium Total Bilirubin AST ALT Alkaline Phosphatase Creatine Kinase Troponin I B-Natriuretic Peptide 14420.38 H Total Protein Albumin Urine Color Straw Urine Appearance Clear Urine pH 6.0 Ur Specific [place] 1.005 Urine Protein 1+ H Urine Glucose (UA) Negative Urine Ketones Negative Urine Blood 1+ H Urine Nitrite Negative Urine Bilirubin Negative Urine Urobilinogen Negative Urine WBC (Auto) None Urine RBC (Auto) 1 06/16/17 06/16/17 08:00 08:00 PT with INR INR Sodium 145 Potassium 4.0 Chloride 113 H Carbon Dioxide 26 Anion Gap 6 L BUN 18 D Creatinine 1.6 H Creat Clearance w eGFR 41.49 Random Glucose 96 Calcium 8.6 Total Bilirubin 1.1 H D AST 30 ALT 40 D Alkaline Phosphatase 103 Creatine Kinase 95 Troponin I 0.88 H* B-Natriuretic Peptide Total Protein 7.1 Albumin 3.5 Urine Color Urine Appearance Urine pH Ur Specific [place] Urine Protein Urine Glucose (UA) Urine Ketones Urine Blood Urine Nitrite Urine Bilirubin Urine Urobilinogen Urine WBC (Auto) Urine RBC (Auto) 06/16/17 08:15 Influenza Types A,B Antigen (SOFIA) - Final Nasopharyngeal Swab - Final 06/16/17 08:00 RBC 4.77 MCV 85.3 MCHC 32.9 RDW 15.5 MPV 8.8 Neutrophils % 53.9 Lymphocytes % 30.7 Monocytes % 10.4 H Eosinophils % 4.2 Basophils % 0.8 - RADIOLOGY Radiology Studies Ordered: Category Date Time Status CHEST CT WITHOUT CONTRAST [CT] Stat CT Scan 06/16/17 09:40 Completed - Medications Given in the ED: ED Medications Discontinued Medications Generic Name Dose Route Start Last Admin Trade Name Freq PRN Reason Stop Dose Admin Furosemide 40 mg 06/16/17 08:28 06/16/17 08:37 Lasix Injection - IVPUSH 06/16/17 08:29 40 mg ONCE ONE Administration Medical Decision Making - Medical Decision Making 06/16/17 09:02 82M PMH of systolic CHF CAD s/p stent x2 A fib on Coumadin HTN and possible CKD based on previous labs presents to the ED with a chief complaint of shortness of breath, cough and 6/10 non-radiating right and left chest pain since 2 am last night. Heart Score 8 Troponins: 0.[address] Perla supervisor telephone answering service consulted 06/16/17 10:20 Patient admitted to Telemetry *DC/Admit/Observation/Transfer Diagnosis at time of Disposition: Acute on chronic diastolic CHF (congestive heart failure) - Discharge Dispostion Admit: Yes Decision to Admit order Date/Time: Decision to Admit Order Category Date Time Status Decision to Admit to Hospital Routine Admission 06/16/17 10:27 Ordered - Referrals Referrals: Artem Weiner [Primary Care Provider] - - Patient Instructions - Post Discharge Activity
[2017-06-16 08:22] LABS: BASOPHIL 0.8 % (0-2.0); EOSINOPHIL 4.2 % (0-4.5); MCH 28.1 pg (25.7-33.7); MCHC 32.9 g/dl (32.0-35.9); MEAN CELL VOLUME 85.3 fl (80-96); MEAN PLT VOLUME 8.8 fl (7.5-11.1); NEUTROPHILS 53.9 % (42.8-82.8); PLATELET COUNT 143 K/MM3 (134-434); RDW 15.5 % (11.9-15.9); WHITE BLOOD COUNT 4.6 K/mm3 (4.0-10.0)
[2017-06-16] MEDS ORDERED: FUROSEMIDE 40 MG/4 ML INJECTABLE VIAL IVPUSH ONE (08:28)
[2017-06-16] MEDS ORDERED: FUROSEMIDE 40 MG/4 ML INJECTABLE VIAL ONE (08:33)
[2017-06-16 08:39] LABS: INR 1.51 (0.82-1.09); PROTHROMBIN TIME (PATIENT) 17.1 SEC (9.98-11.88)
[2017-06-16 08:41] LABS: ALBUMIN 3.5 g/dl (3.4-5.0); ANION GAP 6 (8-16); BILIRUBIN,TOTAL 1.1 mg/dL (0.2-1.0); CALCIUM 8.6 mg/dL (8.5-10.1); CO2 26 mmol/L (21-32); CREATININE 1.6 mg/dL (0.7-1.3); GLUCOSE,RANDOM 96 mg/dL (74-106); SGOT/AST 30 U/L (15-37); SGPT/ALT 40 U/L (12-78)
[2017-06-16 08:42] LABS: ALK PHOS 103 U/L (45-117); TOT PROT 7.1 g/dl (6.4-8.2)
[2017-06-16 08:55] LABS: TROPONIN I 0.88 ng/ml (0.00-0.05)
[2017-06-16 09:27] LABS: URINE APPEARANCE CLEAR; URINE BILIRUBIN NEGATIVE (NEGATIVE); URINE BLOOD 1+ (NEGATIVE); URINE COLOR STRAW; URINE GLUCOSE (UA) NEGATIVE (NEGATIVE); URINE KETONE NEGATIVE (NEGATIVE); URINE NITRITE NEGATIVE (NEGATIVE); URINE UROBILINOGEN NEGATIVE mg/dL (0.2-1.0)
[2017-06-16 09:29] LABS: URINE PROTEIN 1+ (NEGATIVE)
[2017-06-16 09:31] LABS: URINE RBC 1 /hpf (0-3)
--- NOTE | 2017-06-16 09:54 | CON.CARD ---
Cardiology Consult (text) - Consultation Consultation Note: IMP: 1. Acute on chronic systolic CHF 2. CAD s/p PCI 2007 3. CKD 4. Moderate chronic PHTN 5. Permanent AF on coumadin REC: 1. Tele 2. IV Lasix with daily BMP to follow renal fxn and electrolytes 3. INR 2-[address] scan chest to r/o underlying infiltrate: D/W ER attending Dr. Luciano 5. When euvolemic, should have repeat ischemic evaluation Coverage for [facility] ER service Full consult dictated.
[2017-06-16] MEDS ORDERED: CARVEDILOL 6.25 MG TABLET (FP) PO SCH (10:00)
[2017-06-16] MEDS ORDERED: VALSARTAN 160 MG TABLET (UD) PO ONE (10:22)
--- NOTE | 2017-06-16 10:34 | CONS ---
DATE OF CONSULTATION: 06/16/2017 REASON FOR CONSULTATION: The consultation was requested by ER attending for congestive heart failure. HISTORY OF PRESENT ILLNESS: The patient is an 82-year-old male with multiple recent admissions for congestive heart failure. He has a past medical history of chronic systolic CHF, coronary artery disease status post PCI in 2007, permanent atrial fibrillation, on Coumadin, chronic renal insufficiency, mildly reduced LV EF on echocardiogram here in October 2016, moderate pulmonary hypertension and hypertensive heart disease. He presented to the ER for evaluation of 1 evening of increased shortness of breath associated with some chest tightness. He denies fevers, chills, cough. He denies palpitations. He denies increasing lower extremity edema. In the ER, chest x-ray showed increased pulmonary venous congestion consistent with CHF and a markedly elevated BNP. He denies any increased dietary salt intake and states he has been compliant with his home medications. PAST MEDICAL HISTORY: As above. ALLERGIES: He has no known drug allergies. MEDICATIONS: His home medication list includes atorvastatin 40 mg, aspirin 81 mg daily, Aldactone 25 mg daily, K-Dur 20 mEq daily, Coreg 6.25 mg b.i.d., warfarin 4 mg nightly, and valsartan 160 mg b.i.d. FAMILY HISTORY: Noncontributory. SOCIAL HISTORY: Nonsmoker. PHYSICAL EXAMINATION: General: Comfortable, in no distress. Vitals: Pulse 67 in atrial fibrillation. Initial blood pressure was 213/108. O2 saturation 95% on room air. Neck: JVD is present. Heart: S1, S2. Irregular. Chest: Rales at the bases one-third up bilaterally. Abdomen: Soft, nontender. Extremities: One plus edema. DIAGNOSTIC STUDIES: Chest x-ray showed increased pulmonary venous congestion. LABORATORIES: CBC was normal. INR was subtherapeutic at 1.5. Potassium 4.0, creatinine 1.6. CK 95. Troponin 0.88. BNP 13,862. IMPRESSION: 1. Drjdl-sw-egpjpyp systolic congestive heart failure. 2. Coronary artery disease, status post percutaneous coronary intervention in 2007. 3. Chronic kidney disease. 4. Moderate chronic pulmonary hypertension. 5. Permanent atrial fibrillation, on Coumadin, with slightly subtherapeutic international normalized ratio. PLAN: 1. Telemetry monitoring to assess rate control. 2. IV Lasix with daily metabolic panel to follow renal function and electrolytes. 3. INR goal is 2 to 3. Currently he is slightly subtherapeutic. Would adjust warfarin, tonight's dose, to achieve therapeutic INR. If he remains subtherapeutic tomorrow, we will need to start bridging anticoagulation with IV heparin. 4. CT scan of the chest will be obtained to rule out underlying infiltrate. This was recommended on the previous admission but not done. Discussed with ER attending, 5. When euvolemic, he should have repeat ischemic evaluation with a Persantine nuclear stress tender. 6. Mildly elevated troponin with normal CPK is likely due to decompensated systolic CHF in the setting of chronic renal insufficiency. Would obtain serial cardiac enzymes and follow trend. ELZBIETA BALL M.D. MARCO [id number]
[2017-06-16] MEDS ORDERED: CARVEDILOL 3.125 MG TABLET (FP) ONE (11:08)
[2017-06-16] MEDS ORDERED: VALSARTAN 80 MG TABLET (UD) ONE (11:08)
--- NOTE | 2017-06-16 11:19 | HP ---
CHIEF COMPLAINT: chest pain, sob PCP: Dr. Cutler HISTORY OF PRESENT ILLNESS: 82 year old Georgian speaking male with a past medical history of congestive heart failure, permanent atrial fibrillation on coumadin, presents with persistent cough, shortness of breath and a dull, tight, mid/anterior non radiating 6/10 chest pain that is worse with exertion. Chest pain and shortness that have progressively gotten worse over the last two weeks with intermittent leg swelling. Mr. Pham also endorses nasal congestion, sore throat, clear sputum production and lethargy over the past week. Patient denies fever, chills , BHATTI, palpations, n,v, changes in bowel or bladder, recent travel or sick contacts. He was recently discharged form [facility] for acute exacerbation of CHF and subtheraputic INR, discharged on 06/04. At time of discharge, his coumadin was increased and medication adjusted, he was supposed to follow up at [facility] clinic. ER course was notable for: Elevated BP 213/110, elevated BNP and troponin. ECG evident for atrial fibrillation, no ST-T wave inversion. CXR notable for cardiomegaly and possible infiltrate. Non Contrast CT chest notable for bilateral pleural effusion, right loculated, with basilar atelectasis. Recent Travel: non; moved from [facility] 3years ago PAST MEDICAL HISTORY: Acute on chronic systolic congestive heart failure, coronary artery disease s/p PCI 2007, chronic kidney disease, permanent atrial fibrillation. pulmonary hyptertension PAST SURGICAL HISTORY: PCI Social History: Lived at home alone in [place], states he "cleans the room he lives in"? Smoking:no Alcohol:no Drugs: no Family History: Allergies No Known Allergies Allergy (Verified 06/16/17 09:00) HOME MEDICATIONS: Home Medications Medication Instructions Recorded Aspirin [ASA -] 81 mg PO DAILY #100 tab.chew 06/04/17 Atorvastatin Ca [Lipitor] 40 mg PO HS #30 tablet 06/04/17 Carvedilol [Coreg -] 6.25 mg PO BID #60 tablet 06/04/17 Furosemide [Lasix -] 40 mg PO DAILY #30 tablet 06/04/17 Miscellaneous Drug Not In Syst 1 each ASDIR #1 misc 06/04/17 [Outpatient Lab Test] Miscellaneous Drug Not In Syst 1 each ASDIR #1 misc 06/04/17 [Outpatient Lab Test] Potassium Chloride [K-Dur -] 20 meq PO DAILY #5 tablet.er 06/04/17 Spironolactone [Aldactone -] 25 mg PO DAILY #30 tablet 06/04/17 Valsartan [Diovan] 160 mg PO BID #60 tablet 06/04/17 Warfarin Sodium 4 mg PO HS #30 tablet 06/04/17 REVIEW OF SYSTEMS CONSTITUTIONAL: Positive: generalized weakness, malaise Absent: fever, chills, diaphoresis, , loss of appetite, weight change HEENT: Absent: rhinorrhea, nasal congestion, throat pain, throat swelling, difficulty swallowing, mouth swelling, ear pain, eye pain, visual changes CARDIOVASCULAR: Positive: chest pain, intermittent leg swelling Absent: syncope, palpitations, irregular heart rate, lightheadedness, peripheral edema RESPIRATORY: Positive: cough, shortness of breath,dyspnea with exertion Absent: orthopnea, wheezing, stridor, hemoptysis GASTROINTESTINAL: Absent: abdominal pain, abdominal distension, nausea, vomiting, diarrhea, constipation, melena, hematochezia GENITOURINARY: Absent: dysuria, frequency, urgency, hesitancy, hematuria, flank pain, genital pain MUSCULOSKELETAL: Absent: myalgia, arthralgia, joint swelling, back pain, neck pain SKIN: Absent: rash, itching, pallor HEMATOLOGIC/IMMUNOLOGIC: Absent: easy bleeding, easy bruising, lymphadenopathy, frequent infections ENDOCRINE: Absent: unexplained weight gain, unexplained weight loss, heat intolerance, cold intolerance NEUROLOGIC: Absent: headache, focal weakness or paresthesias, dizziness, unsteady gait, seizure, mental status changes, bladder or bowel incontinence PSYCHIATRIC: Absent: anxiety, depression, suicidal or homicidal ideation, hallucinations. PHYSICAL EXAMINATION Vital Signs - 24 hr 06/16/17 07:54 Pulse Rate 67 Respiratory 17 Rate Blood Pressure 213/108 O2 Sat by Pulse 95 Oximetry (%) GENERAL: Awake, alert, and fully oriented, in no acute distress. HEAD: Normal with no signs of trauma. EYES: Pupils equal, round and reactive to light, extraocular movements intact, sclera anicteric, conjunctiva clear. No lid lag. EARS, NOSE, THROAT: Ears normal, nares patent, oropharynx clear mild erythem, Moist mucous membranes. NECK: Normal range of motion, supple without lymphadenopathy, JVD, or masses. LUNGS: Decreased Breath sounds equal, clear to auscultation bilaterally. No wheezes, and no crackles. No accessory muscle use. HEART: Regular rate and irregular rhythm, normal S1 and S2 without murmur, rub or gallop. ABDOMEN: Soft, nontender, not distended, normoactive bowel sounds, no guarding, no rebound, no masses. No hepatomegaly or splenomegaly. MUSCULOSKELETAL: Normal range of motion at all joints. No bony deformities or tenderness. No CVA tenderness. UPPER EXTREMITIES: 2+ pulses, warm, well-perfused. No cyanosis. No clubbing. No peripheral edema. LOWER EXTREMITIES: 2+ pulses, warm, well-perfused. No calf tenderness. No peripheral edema. NEUROLOGICAL: Cranial nerves II-XII intact. Normal speech. Normal gait. PSYCHIATRIC: Cooperative. Good eye contact. Appropriate mood and affect. SKIN: Warm, dry, normal turgor, no rashes or lesions noted, normal capillary refill. Laboratory Results - last 24 hr 06/16/17 06/16/17 06/16/17 08:00 08:00 08:00 WBC 4.6 RBC 4.77 Hgb 13.4 Hct 40.7 MCV 85.3 MCH 28.1 MCHC 32.9 RDW 15.5 Plt Count 143 MPV 8.8 Neutrophils % 53.9 Lymphocytes % 30.7 Monocytes % 10.4 H Eosinophils % 4.2 Basophils % 0.8 PT with INR INR Sodium 145 Potassium 4.0 Chloride 113 H Carbon Dioxide 26 Anion Gap 6 L BUN 18 D Creatinine 1.6 H Creat Clearance w eGFR 41.49 Random Glucose 96 Calcium 8.6 Total Bilirubin 1.1 H D AST 30 ALT 40 D Alkaline Phosphatase 103 Creatine Kinase 95 Troponin I 0.88 H* B-Natriuretic Peptide Total Protein 7.1 Albumin 3.5 Urine Color Urine Appearance Urine pH Ur Specific [place] Urine Protein Urine Glucose (UA) Urine Ketones Urine Blood Urine Nitrite Urine Bilirubin Urine Urobilinogen Urine WBC (Auto) Urine RBC (Auto) 06/16/17 06/16/17 06/16/17 08:00 08:00 09:15 WBC RBC Hgb Hct MCV MCH MCHC RDW Plt Count MPV Neutrophils % Lymphocytes % Monocytes % Eosinophils % Basophils % PT with INR 17.10 H INR 1.51 H D Sodium Potassium Chloride Carbon Dioxide Anion Gap BUN Creatinine Creat Clearance w eGFR Random Glucose Calcium Total Bilirubin AST ALT Alkaline Phosphatase Creatine Kinase Troponin I B-Natriuretic Peptide 78664.38 H Total Protein Albumin Urine Color Straw Urine Appearance Clear Urine pH 6.0 Ur Specific [place] 1.005 Urine Protein 1+ H Urine Glucose (UA) Negative Urine Ketones Negative Urine Blood 1+ H Urine Nitrite Negative Urine Bilirubin Negative Urine Urobilinogen Negative Urine WBC (Auto) None Urine RBC (Auto) 1 Current Medications Generic Name Dose Route Start Last Admin Trade Name Jermaineq PRN Reason Stop Dose Admin Aspirin 81 mg 06/17/17 10:00 Asa - PO DAILY [facility] Atorvastatin Calcium 40 mg 06/16/17 22:00 Lipitor - PO [facility] Carvedilol 6.25 mg 06/16/17 10:00 06/16/17 11:12 Coreg - PO 6.25 mg BID [facility] Administration Furosemide 40 mg 06/16/17 16:00 Lasix Injection - IVPUSH BIDLASIX [facility] Azithromycin 500 mg/ Dextrose 250 mls @ 250 mls/hr 06/16/17 11:20 IVPB 06/16/17 12:19 ONCE ONE CEFTRIAXONE 1 G/50 ML PREMIX 50 mls @ 100 mls/hr 06/16/17 11:30 Ceftriaxone 1 Gm-D5w Bag IVPB DAILY [facility] Azithromycin 500 mg/ Dextrose 250 mls @ 250 mls/hr 06/17/17 10:00 IVPB DAILY [facility] Spironolactone 25 mg 06/17/17 10:00 Aldactone - PO DAILY [facility] Valsartan 160 mg 06/16/17 22:00 Diovan - PO BID [facility] Warfarin Sodium 7.5 mg 06/16/17 18:00 Coumadin - PO 06/16/17 18:01 ONCE@1800 ONE Warfarin Sodium 4 mg 06/17/17 22:00 Coumadin - PO [facility] ASSESSMENT/PLAN: This is a 82 year old male with a past medical history of CAD with stent, permanent atrial fibrillation on coumadin, CKD and congestive heart failure, who presents with shortness of breath, chest pain and cough. Admitted for CHF exacerbation. Rule out pneumonia #acute exacerbation of chronic class II-III NYHA systolic/diastolic heart failure -Lasix 40mg IVP bid -Aldactone 25mg po daily -monitor BMP -strict I/Os, daily weights -last echo 11/06: mild LV dysfunction; mod MR, mild AR, devere TR -repeat echo pending -appreciate cardio #permanent atrial fibrillation with subtherapeutic INR -given 1x warfarin 7.5mg po -start home dose 4mg po HS tomorrow -daily INR #chest pain with elevated troponin and history of coronary artery disease -ECG evident for a fib; no st-t wave changes -may be due to CKD vs ischemia -trend troponin x2 -will need ischemia work up once stable #hypertension: -cont valsartan 160mg po daily -cont coreg 6.25mg po daily -hydralazine [id number] q6h prn for BP systolic >170 or diastolic >140 #cough/congestion with bilateral pleural effusion; r/o PNA -Chest CT -will start empiric for HAP ceftriaxone and azithromycin -rapid strep -urine antigens for pna -rsv -blood cultures -ID and Pulmonry appreciated #chronic kidney disease Stage 3B (moderate [id number]): stable at baseline -GFR 41 -avoid nephrotoxic agents if patient becomes hypovolemic Diet:fluid and salt restrict Fluids: po intake; restrict fluid 1.2L Electrolytes wnl VTE prophylaxis: on warfarin GI proph: n/a Disposition: Inpatient monitor on telemetry; Visit type - Emergency Visit Emergency Visit: Yes Care time: The patient presented to the Emergency Department on the above date and was hospitalized for further evaluation of their emergent condition. - New Patient This patient is new to me today: Yes Date on this admission: 06/16/17 - Critical Care Critical Care patient: No
[2017-06-16] MEDS ORDERED: AZITHROMYCIN IVPB 500 MG in DEXTROSE 5%-WATER - 250 ML IVPB ONE (11:20)
[2017-06-16] MEDS ORDERED: CEFTRIAXONE 1 G/50 ML PREMIX 50 ML IVPB SCH (11:30)
--- NOTE | 2017-06-16 12:04 | PN ---
Teaching Attending Note Name of Resident: Sapphire Colmenares ATTENDING PHYSICIAN STATEMENT Time of evaluation: 10:30 AM I saw and evaluated the patient. I reviewed the resident's note and discussed the case with the resident. I agree with the resident's findings and plan as documented. SUBJECTIVE: Patient seen and examined, romanian speaking, assisted by Dr. Colmenares. Vague historian. Reports some improvement in his symptoms since discharge, but progressive Dyspne on exertion with leg swelling, persistent cough x 1 month ( with clear sputum). Also vague symptoms of chest pain, 'over the chest' with no clear exacerbating or relieving factors, but denies similar to his prior CO. Reports have been off and on for a month, currently denies any active chest pain. Symptoms not associated with diuresis, arm or jaw pain or heaviness. Reports URI like illness with PND, nasal stuffiness and some sore throat over the last few days. Reports has been compliant with his medications and low salt diet. OBJECTIVE: Vital Signs Period Temp Pulse Resp BP Sys/Ayala Pulse Ox Last 24 Hr 67 17 213/108 95 Intake & Output 06/13/17 06/14/17 06/15/17 06/16/17 23:59 23:59 23:59 23:59 Weight 162 lb GENERAL: Awake, alert, and fully oriented, in no acute distress. HEAD: Normal with no signs of trauma. EYES: Pupils equal, round and reactive to light, extraocular movements intact, sclera anicteric, conjunctiva clear. No lid lag. EARS, NOSE, THROAT: Ears normal, nares patent, mild pharyngeal erythema. Moist mucous membranes. NECK: Normal range of motion, supple without lymphadenopathy, JVD, or masses. LUNGS: decreased breath sounds at bases R>L, no rales appreciated, good air entry bilaterally. HEART: S1S2 irregular ABDOMEN: Soft, nontender, not distended, normoactive bowel sounds, no guarding, no rebound, no masses. MUSCULOSKELETAL: Normal range of motion at all joints. No bony deformities or tenderness. No CVA tenderness. UPPER EXTREMITIES: 2+ pulses, warm, well-perfused. No cyanosis. No clubbing. no edema LOWER EXTREMITIES: 2+ pulses, warm, well-perfused. No calf tenderness. trace pedal edema NEUROLOGICAL: Cranial nerves II-XII intact. Normal speech. Gait deferred PSYCHIATRIC: Cooperative. Good eye contact. Appropriate mood and affect. SKIN: Warm, dry, normal turgor, no rashes or lesions noted, normal capillary refill. Active Medications Generic Name Dose Route Start Last Admin Trade Name Manjinder PRN Reason Stop Dose Admin Aspirin 81 mg 06/17/17 10:00 Asa - PO DAILY [facility] Carvedilol 6.25 mg 06/16/17 10:00 06/16/17 11:12 Coreg - PO 6.25 mg BID TORIN Administration Furosemide 40 mg 06/16/17 16:00 Lasix Injection - IVPUSH BIDLASIX TORIN Azithromycin 500 mg/ Dextrose 250 mls @ 250 mls/hr 06/16/17 11:20 IVPB 06/16/17 12:19 ONCE ONE CEFTRIAXONE 1 G/50 ML PREMIX 50 mls @ 100 mls/hr 06/16/17 11:30 Ceftriaxone 1 Gm-D5w Bag IVPB DAILY TORIN Azithromycin 500 mg/ Dextrose 250 mls @ 250 mls/hr 06/17/17 10:00 IVPB DAILY TORIN Spironolactone 25 mg 06/17/17 10:00 Aldactone - PO DAILY [facility] Valsartan 160 mg 06/16/17 22:00 Diovan - PO BID [facility] Warfarin Sodium 7.5 mg 06/16/17 18:00 Coumadin - PO 06/16/17 18:01 ONCE@1800 ONE Warfarin Sodium 4 mg 06/17/17 22:00 Coumadin - PO HS [facility] Laboratory Results - last 24 hr 06/16/17 06/16/17 06/16/17 08:00 08:00 08:00 WBC 4.6 RBC 4.77 Hgb 13.4 Hct 40.7 MCV 85.3 MCH 28.1 MCHC 32.9 RDW 15.5 Plt Count 143 MPV 8.8 Neutrophils % 53.9 Lymphocytes % 30.7 Monocytes % 10.4 H Eosinophils % 4.2 Basophils % 0.8 PT with INR INR Sodium 145 Potassium 4.0 Chloride 113 H Carbon Dioxide 26 Anion Gap 6 L BUN 18 D Creatinine 1.6 H Creat Clearance w eGFR 41.49 Random Glucose 96 Calcium 8.6 Total Bilirubin 1.1 H D AST 30 ALT 40 D Alkaline Phosphatase 103 Creatine Kinase 95 Troponin I 0.88 H* B-Natriuretic Peptide Total Protein 7.1 Albumin 3.5 Urine Color Urine Appearance Urine pH Ur Specific [place] Urine Protein Urine Glucose (UA) Urine Ketones Urine Blood Urine Nitrite Urine Bilirubin Urine Urobilinogen Urine WBC (Auto) Urine RBC (Auto) 06/16/17 06/16/17 06/16/17 08:00 08:00 09:15 WBC RBC Hgb Hct MCV MCH MCHC RDW Plt Count MPV Neutrophils % Lymphocytes % Monocytes % Eosinophils % Basophils % PT with INR 17.10 H INR 1.51 H D Sodium Potassium Chloride Carbon Dioxide Anion Gap BUN Creatinine Creat Clearance w eGFR Random Glucose Calcium Total Bilirubin AST ALT Alkaline Phosphatase Creatine Kinase Troponin I B-Natriuretic Peptide 67700.38 H Total Protein Albumin Urine Color Straw Urine Appearance Clear Urine pH 6.0 Ur Specific [place] 1.005 Urine Protein 1+ H Urine Glucose (UA) Negative Urine Ketones Negative Urine Blood 1+ H Urine Nitrite Negative Urine Bilirubin Negative Urine Urobilinogen Negative Urine WBC (Auto) None Urine RBC (Auto) 1 EKG afib with PVC unchanged, no acute ST-T changes noted CXR - congestion, blunting Right CP angle, ?Right basilar infiltrate CT chest - bilateral pleural effusions R>L, ?small loculation in right fissure ASSESSMENT AND PLAN: 82 yom from [facility] admitted with dyspnea/cough, found with CHF, Hypertensive urgency, atypical chest pain, ?vague URI like illness/sore throat symptoms. -Acute systolic/diastolic heart failure exacerbation -Bilateral pleural effusions with ?small loculation in right fissure. Suspect transudative based on presentation -Hypertensive urgency -Elevated troponin, chronically elevated, ?from CKD, trending down from recent admit in 06/04/2017 -Atrial fibrillation on coumadin -Atypical Chest pain -?URI like prodrome with sore throat Plan: patient similar prior presentation recently when was found with CHF, elevated BP , mildly elevated troponin. His INR is subtherapeutic currently. All this is suspicous for non compliance with his medications as well as low salt diet resulting in recurrent admissions. Lasix 40 mg IV q12h, strict I/Os, daily weights, hold off on repeat 2D echo. BP control, resume home coreg/diovan. Hydralazine IV prn for SBP > 170. Continue coreg/spironolactone. Cardiology input appreciated. Chronically elevated troponin, trended down from recent admission, ?CKD vs demand induced from CHF. EKG non concerning. Cycle troponins and monitor for now. Continue ASA/statin/coreg. Ischemia w/u once volume status improved, ?inpatient vs outpatient. Low clinical suspicion for infection. But given vague URI like prodrome and ? loculated pleural effusion, will check strep throat, RVP, place on ceftriaxone/ azithromycin and get pulmonary/Infectious disease consult. Coumadin 7.5 mg tonight, then resume home dose, however strongly suspect non compliance. Dispo pending resolution of medical issues. May need home VNS, will reassess when ready. Plan discussed with patient in detail, all questions answered. Total admit time spent 65 min.
[2017-06-16] MEDS ORDERED: AZITHROMYCIN IVPB 250 ML IVPB ONE (12:39)
[2017-06-16] MEDS ORDERED: CEFTRIAXONE 1 GM/50 ML BAG ONE (12:40)
[2017-06-16 14:20] LABS: URINE LEUK ESTERASE Negative (NEGATIVE)
[2017-06-16 14:37] LABS: INR 1.47 (0.82-1.09); PROTHROMBIN TIME (PATIENT) 16.6 SEC (9.98-11.88)
--- NOTE | 2017-06-16 14:49 | CON.PULM ---
Consult Consult Specialty:: PULM/CCM Referred by:: EVER Reason for Consultation:: Abnormal CT - History of Present Illness Chief Complaint: SOB History of Present Illness: 82 M, CHF and permanent atrial fibrillation on coumadin. Admitted via the ER due to persistent cough, shortness of breath, and dull anterior CP. Apparently has been having URI symptoms for the past 2 weeks. No apparent travel history or sick contacts. He was recently treated and discharged on 06/04 from [facility] for acute decompensation of CHF. CXR from 10/2016 reviewed. Current CXR is improved from that time. - History Source History Provided By: Patient, Medical Record Limitations to Obtaining History: Language Barrier - Past Medical History Cardio/Vascular: Yes: AFIB, CAD, CHF, HTN - Past Surgical History Past Surgical History: Yes: Stent - Alcohol/Substance Use Hx Alcohol Use: No - Smoking History Smoking history: Never smoked Have you smoked in the past 12 months: No Home Medications - Allergies Allergies/Adverse Reactions: Allergies Allergy/AdvReac Type Severity Reaction Status Date / Time No Known Allergies Allergy Verified 06/16/17 09:00 - Home Medications Home Medications: Ambulatory Orders Aspirin [ASA -] 81 mg PO DAILY #100 tab.chew 06/04/17 Atorvastatin Ca [Lipitor] 40 mg PO HS #30 tablet 06/04/17 Carvedilol [Coreg -] 6.25 mg PO BID #60 tablet 06/04/17 Furosemide [Lasix -] 40 mg PO DAILY #30 tablet 06/04/17 Miscellaneous Drug Not In Syst [Outpatient Lab Test] 1 each ASDIR #1 misc Miscellaneous Drug Not In Syst [Outpatient Lab Test] [facility] Potassium Chloride [K-Dur -] 20 meq PO DAILY #5 tablet.er 06/04/17 Spironolactone [Aldactone -] 25 mg PO DAILY #30 tablet 06/04/17 Valsartan [Diovan] 160 mg PO BID #60 tablet 06/04/17 Warfarin Sodium 4 mg PO HS #30 tablet 06/04/17 Review of Systems - Review of Systems Constitutional: reports: Lethargy, Malaise, Weakness. denies: Chills, Fever, Night Sweats Eyes: reports: No Symptoms HENT: reports: Nasal Congestion, Throat Pain. denies: Ear Discharge, Epistaxis , Toothache Neck: reports: No Symptoms Cardiovascular: reports: Chest Pain, Shortness of Breath. denies: Edema, Palpitations Respiratory: reports: Cough, Snoring, SOB, SOB on Exertion. denies: Hemoptysis , Wheezing Gastrointestinal: reports: No Symptoms Genitourinary: reports: No Symptoms Breasts: reports: No Symptoms Reported Musculoskeletal: reports: No Symptoms Integumentary: reports: No Symptoms Neurological: reports: No Symptoms Endocrine: reports: No Symptoms Hematology/Lymphatic: reports: No Symptoms Psychiatric: reports: No Symptoms Physical Exam Vital Sings: Vital Signs Temperature 98.3 F 06/16/17 14:10 Pulse Rate 59 L 06/16/17 14:10 Respiratory Rate 20 06/16/17 14:10 Blood Pressure 166/86 06/16/17 14:10 O2 Sat by Pulse Oximetry (%) 98 06/16/17 12:55 Constitutional: Yes: No Distress Eyes: Yes: Conjunctiva Clear, EOM Intact HENT: Yes: Atraumatic, Normocephalic Neck: Yes: Supple, Trachea Midline Cardiovascular: Yes: Pulse Irregular. No: JVD, Gallop, Murmur Respiratory: Yes: Cough, Diminished, On Nasal O2, Rhonchi. No: Accessory Muscle Use, Stridor, Tachypnea, Wheezes ...Inspection: Yes: WNL ...Clubbing: No Gastrointestinal: Yes: Normal Bowel Sounds, Soft Renal/: Yes: WNL Breast(s): Yes: WNL Musculoskeletal: Yes: WNL Edema: No Peripheral Pulses WNL: Yes Integumentary: Yes: WNL Neurological: Yes: WNL, Alert, Oriented ...Motor Strength: WNL Psychiatric: Yes: WNL, Alert, Oriented Labs: CBC, BMP 06/16/17 08:00 06/16/17 08:00 Imaging - Results Chest X-ray: Report Reviewed, Image Reviewed Cat Scan: Report Reviewed, Image Reviewed Problem List - Problems (1) Acute on chronic diastolic CHF (congestive heart failure) Code(s): I50.33 - ACUTE ON CHRONIC DIASTOLIC (CONGESTIVE) HEART FAILURE (2) Atrial fibrillation with controlled ventricular response Code(s): I48.91 - UNSPECIFIED ATRIAL FIBRILLATION (3) Coronary artery disease Code(s): I25.10 - ATHSCL HEART DISEASE OF [place] CORONARY ARTERY W/O ANG PCTRS Qualifiers: Coronary Disease-Associated Artery/Lesion type: [place] artery [place] vs. transplanted heart: [place] heart Associated angina: with stable angina Qualified Code(s): I25.118 - Atherosclerotic heart disease of [place] coronary artery with other forms of angina pectoris (4) Hypertensive cardiomyopathy Code(s): I11.9 - HYPERTENSIVE HEART DISEASE WITHOUT HEART FAILURE; I42.9 - CARDIOMYOPATHY, UNSPECIFIED Qualifiers: Heart failure presence: with heart failure Qualified Code(s): I11.0 - Hypertensive heart disease with heart failure (5) Chronic kidney disease (CKD) Code(s): N18.9 - CHRONIC KIDNEY DISEASE, UNSPECIFIED Qualifiers: Chronic kidney disease stage: stage 3 (moderate) Qualified Code(s): N18.3 - Chronic kidney disease, stage 3 (moderate) (6) Pulmonary hypertension Code(s): I27.2 - OTHER SECONDARY PULMONARY HYPERTENSION * DO NOT USE * (7) S/P coronary artery stent placement Code(s): Z95.5 - PRESENCE OF CORONARY ANGIOPLASTY IMPLANT AND GRAFT (8) Tricuspid regurgitation Code(s): I07.1 - RHEUMATIC TRICUSPID INSUFFICIENCY Assessment/Plan Do not suspect active infection. Overall picture may be related to resolving viral illness. Will stop ABX for now. Noted ID consult has been called for further input as well. O2 as needed Would not order thoracentesis as effusion is small and due to paucity of findings the risk of stopping his AC does not seem to outweigh the benefit of stopping his AC Can repeat imaging as an outpatient to document stability/improvement Coumadin Lasix Aldactone Will follow Thank you. Dr Hameed
[2017-06-16] MEDS: FUROSEMIDE 40 MG/4 ML INJECTABLE VIAL IVPUSH SCH (16:06)
[2017-06-16] MEDS ORDERED: WARFARIN NA 7.5 MG TABLET (FP) PO ONE (18:00)
[2017-06-16] MEDS: HEPARIN - 25,000 UNIT in SODIUM CHLORIDE 495 ML IV SCH (20:01)
[2017-06-16] MEDS ORDERED: PNEUMOC 13-VAL CONJ-DIP CRM/PF 0.5 ML DISP.SYRIN IM ONE (21:00)
[2017-06-16] MEDS ORDERED: FLU VACCINE QUAD 60 MCG/0.5 ML (MDV 17-18) IM ONE (21:00)
[2017-06-16] MEDS: VALSARTAN 160 MG TABLET (UD) PO SCH (21:51)
[2017-06-16] MEDS: CARVEDILOL 6.25 MG TABLET (FP) PO SCH (21:51)
[2017-06-16] MEDS: ATORVASTATIN CA 40 MG TABLET (FP) PO SCH (21:51)
[2017-06-16 22:19] LABS: TROPONIN I 0.77 ng/ml (0.00-0.05)
[2017-06-17 02:24] LABS: INR 1.33 (0.82-1.09)
[2017-06-17] MEDS: FUROSEMIDE 40 MG/4 ML INJECTABLE VIAL IVPUSH SCH ×2 (05:48→10:56)
[2017-06-17 07:21] LABS: BASOPHIL 0.9 % (0-2.0); EOSINOPHIL 4.3 % (0-4.5); MCH 27.8 pg (25.7-33.7); MCHC 32.7 g/dl (32.0-35.9); MEAN CELL VOLUME 85.2 fl (80-96); MEAN PLT VOLUME 9.4 fl (7.5-11.1); NEUTROPHILS 52.9 % (42.8-82.8); PLATELET COUNT 132 K/MM3 (134-434); RDW 15.3 % (11.9-15.9); WHITE BLOOD COUNT 5.5 K/mm3 (4.0-10.0)
[2017-06-17 08:43] LABS: ALBUMIN 3.1 g/dl (3.4-5.0); ALK PHOS 93 U/L (45-117); ANION GAP 11 (8-16); CALCIUM 8.1 mg/dL (8.5-10.1); CO2 25 mmol/L (21-32); CREATININE 1.6 mg/dL (0.7-1.3); GLUCOSE,RANDOM 97 mg/dL (74-106); MAGNESIUM 1.9 mg/dL (1.8-2.4); SGOT/AST 22 U/L (15-37); SGPT/ALT 31 U/L (12-78); TOT PROT 6.3 g/dl (6.4-8.2)
--- NOTE | 2017-06-17 09:31 | PN ---
Progress Note, Physician Chief Complaint: Chest CT c/w CHF He says he feels bettr TELE: Today showed a short run of PAF with aberrancy K is low - Current Medication List Current Medications: Active Medications Aspirin (Asa -) 81 mg PO DAILY [facility] Atorvastatin Calcium (Lipitor -) 40 mg PO HS [facility] Last Admin: 06/16/17 21:51 Dose: 40 mg Carvedilol (Coreg -) 6.25 mg PO BID [facility] Last Admin: 06/16/17 21:51 Dose: 6.25 mg Furosemide (Lasix Injection -) 40 mg IVPUSH BIDLASIX [facility] Last Admin: 06/17/17 05:48 Dose: 40 mg Heparin Sodium (Porcine) 25, (000 unit/ Sodium Chloride) 500 mls @ 20 mls/hr IV TITR [facility]; 1,000 UNIT/HR PRN Reason: Protocol Last Titration: 06/17/17 02:58 Dose: 1,000 unit/hr, 20 mls/hr Spironolactone (Aldactone -) 25 mg PO DAILY [facility] Valsartan (Diovan -) 160 mg PO BID [facility] Last Admin: 06/16/17 21:51 Dose: 160 mg Warfarin Sodium (Coumadin -) 6 mg PO DAILY@1800 [facility] - Objective Vital Signs: Vital Signs Temperature 98.2 F 06/17/17 05:05 Pulse Rate 52 L 06/17/17 05:05 Respiratory Rate 18 06/17/17 05:05 Blood Pressure 154/83 06/17/17 05:05 O2 Sat by Pulse Oximetry (%) 98 06/16/17 21:00 Constitutional: Yes: No Distress Cardiovascular: Yes: Pulse Irregular Respiratory: Yes: Other (decreased breath sounds at bases, overall lung exam is improved) Gastrointestinal: Yes: Soft Edema: No Neurological: Yes: Alert, Oriented Labs: CBC, BMP 06/17/17 05:42 06/17/17 05:42 INR, PTT INR 1.33 (0.82-1.09) H 06/17/17 01:40 Laboratory Tests 06/16/17 06/16/17 06/17/17 08:00 21:05 01:40 WBC Hgb Plt Count INR 1.33 H PTT (Actin FS) Sodium Potassium BUN Creatinine Magnesium Creatine Kinase 95 106 Troponin I 0.88 H* 0.77 H* 06/17/17 06/17/17 06/17/17 02:00 05:42 05:42 WBC 5.5 Hgb 12.6 Plt Count 132 L INR PTT (Actin FS) 57.0 H Sodium 146 H Potassium 3.1 L D BUN 24 H D Creatinine 1.6 H Magnesium 1.9 Creatine Kinase Troponin I 06/17/17 09:18 WBC Hgb Plt Count INR Pending PTT (Actin FS) Sodium Potassium BUN Creatinine Magnesium Creatine Kinase Troponin I - ....Imaging EKG: Image Reviewed (TELE: AF average 60bpm, run of Rapid AF w/ aberrancy) Assessment/Plan IMP: 1. Acute on chronic systolic CHF 2. CAD s/p PCI 2007 3. CKD 4. Moderate chronic PHTN 5. Permanent AF on coumadin REC: 1. Continue IV Lasix, can decrease to daily dosing. Daily BMP to monitor creatinine and lytes -Needs Mg and K repleted 2. When euvolemic, needs ischemic evaluation with Persantine MIBI -Suspect low level TnI w/ nl CK is due to CHF/CKD. 3. Heparin bridge to coumadin w/ target INR 2-3
[2017-06-17 09:49] LABS: INR 1.36 (0.82-1.09); PROTHROMBIN TIME (PATIENT) 15.4 SEC (9.98-11.88)
[2017-06-17] MEDS ORDERED: AZITHROMYCIN IVPB 250 MG in DEXTROSE 5%-WATER - 250 ML IVPB SCH (10:00)
[2017-06-17] MEDS ORDERED: AZITHROMYCIN IVPB 500 MG in DEXTROSE 5%-WATER - 250 ML IVPB SCH (10:00)
[2017-06-17] MEDS: SPIRONOLACTONE 25 MG TABLET (FP) PO SCH (10:56)
[2017-06-17] MEDS: ASPIRIN 81 MG CHEWABLE TABLETS PO SCH (10:56)
[2017-06-17] MEDS: VALSARTAN 160 MG TABLET (UD) PO SCH ×2 (10:56→22:09)
[2017-06-17] MEDS: CARVEDILOL 6.25 MG TABLET (FP) PO SCH ×2 (10:56→22:09)
[2017-06-17] MEDS: MAGNESIUM OXIDE 400 MG TABLET (FP) PO SCH ×2 (10:57→22:08)
[2017-06-17 12:39] LABS: TROPONIN I 0.74 ng/ml (0.00-0.05)
--- NOTE | 2017-06-17 13:07 | PN ---
Progress Note (short form) - Note Progress Note: Breathing feels better today. No CP. No significant cough or sputum. Intake & Output 06/14/17 06/15/17 06/16/17 06/17/17 23:59 23:59 23:59 23:59 Intake Total 960 520 Output Total 2 450 Balance 958 70 Weight 162 lb 162 lb Last Vital Signs Temp Pulse Resp BP Pulse Ox 97.7 F 57 L 18 161/69 98 06/17/17 10:00 06/17/17 10:00 06/17/17 10:00 06/17/17 10:00 06/17/17 09:00 Active Medications Aspirin (Asa -) 81 mg PO DAILY [facility] Last Admin: 06/17/17 10:56 Dose: 81 mg Atorvastatin Calcium (Lipitor -) 40 mg PO HS [facility] Last Admin: 06/16/17 21:51 Dose: 40 mg Carvedilol (Coreg -) 6.25 mg PO BID [facility] Last Admin: 06/17/17 10:56 Dose: 6.25 mg Furosemide (Lasix Injection -) 40 mg IVPUSH DAILY [facility] Last Admin: 06/17/17 10:56 Dose: 40 mg Heparin Sodium (Porcine) 25, (000 unit/ Sodium Chloride) 500 mls @ 20 mls/hr IV TITR [facility]; 1,000 UNIT/HR PRN Reason: Protocol Last Titration: 06/17/17 02:58 Dose: 1,000 unit/hr, 20 mls/hr Magnesium Oxide (Mag-Ox -) 400 mg PO BID [facility] Stop: 06/19/17 23:59 Last Admin: 06/17/17 10:57 Dose: 400 mg Spironolactone (Aldactone -) 25 mg PO DAILY [facility] Last Admin: 06/17/17 10:56 Dose: 25 mg Valsartan (Diovan -) 160 mg PO BID [facility] Last Admin: 06/17/17 10:56 Dose: 160 mg Warfarin Sodium (Coumadin -) 6 mg PO DAILY@1800 TORIN Constitutional: Yes: No Distress Eyes: Yes: Conjunctiva Clear, EOM Intact HENT: Yes: Atraumatic, Normocephalic Neck: Yes: Supple, Trachea Midline Cardiovascular: Yes: Pulse Irregular. No: JVD, Gallop, Murmur Respiratory: Yes: Cough, Diminished, On Nasal O2, Rhonchi. No: Accessory Muscle Use, Stridor, Tachypnea, Wheezes ...Inspection: Yes: WNL ...Clubbing: No Gastrointestinal: Yes: Normal Bowel Sounds, Soft Renal/: Yes: WNL Breast(s): Yes: WNL Musculoskeletal: Yes: WNL Edema: No Peripheral Pulses WNL: Yes Integumentary: Yes: WNL Neurological: Yes: WNL, Alert, Oriented ...Motor Strength: WNL Psychiatric: Yes: WNL, Alert, Oriented Labs: Laboratory Results - last 24 hr 06/16/17 06/16/17 06/16/17 09:15 13:45 21:05 WBC RBC Hgb Hct MCV MCH MCHC RDW Plt Count MPV Neutrophils % Lymphocytes % Monocytes % Eosinophils % Basophils % PT with INR 16.60 H INR 1.47 H PTT (Actin FS) Sodium Potassium Chloride Carbon Dioxide Anion Gap BUN Creatinine Creat Clearance w eGFR Random Glucose Calcium Phosphorus Magnesium Total Bilirubin AST ALT Alkaline Phosphatase Creatine Kinase 106 Troponin I 0.77 H* Total Protein Albumin Ur Leukocyte Esterase Negative 06/17/17 06/17/17 06/17/17 01:40 02:00 05:42 WBC 5.5 RBC 4.52 Hgb 12.6 Hct 38.5 MCV 85.2 MCH 27.8 MCHC 32.7 RDW 15.3 Plt Count 132 L MPV 9.4 Neutrophils % 52.9 Lymphocytes % 31.3 Monocytes % 10.6 H Eosinophils % 4.3 Basophils % 0.9 PT with INR 15.00 H INR 1.33 H PTT (Actin FS) 57.0 H Sodium Potassium Chloride Carbon Dioxide Anion Gap BUN Creatinine Creat Clearance w eGFR Random Glucose Calcium Phosphorus Magnesium Total Bilirubin AST ALT Alkaline Phosphatase Creatine Kinase Troponin I Total Protein Albumin Ur Leukocyte Esterase 06/17/17 06/17/17 06/17/17 05:42 09:18 09:18 WBC RBC Hgb Hct MCV MCH MCHC RDW Plt Count MPV Neutrophils % Lymphocytes % Monocytes % Eosinophils % Basophils % PT with INR 15.40 H INR 1.36 H PTT (Actin FS) 70.4 H Sodium 146 H Potassium 3.1 L D Chloride 110 H Carbon Dioxide 25 Anion Gap 11 BUN 24 H D Creatinine 1.6 H Creat Clearance w eGFR 41.49 Random Glucose 97 Calcium 8.1 L Phosphorus 3.0 Magnesium 1.9 Total Bilirubin 1.0 AST 22 D ALT 31 D Alkaline Phosphatase 93 Creatine Kinase Troponin I Total Protein 6.3 L Albumin 3.1 L Ur Leukocyte Esterase 06/17/17 10:33 WBC RBC Hgb Hct MCV MCH MCHC RDW Plt Count MPV Neutrophils % Lymphocytes % Monocytes % Eosinophils % Basophils % PT with INR INR PTT (Actin FS) Sodium Potassium Chloride Carbon Dioxide Anion Gap BUN Creatinine Creat Clearance w eGFR Random Glucose Calcium Phosphorus Magnesium Total Bilirubin AST ALT Alkaline Phosphatase Creatine Kinase 99 Troponin I 0.74 H* Total Protein Albumin Ur Leukocyte Esterase Problem List - Problems (1) Acute on chronic diastolic CHF (congestive heart failure) Code(s): I50.33 - ACUTE ON CHRONIC DIASTOLIC (CONGESTIVE) HEART FAILURE (2) Atrial fibrillation with controlled ventricular response Code(s): I48.91 - UNSPECIFIED ATRIAL FIBRILLATION (3) Coronary artery disease Code(s): I25.10 - ATHSCL HEART DISEASE OF [place] CORONARY ARTERY W/O ANG PCTRS Qualifiers: Coronary Disease-Associated Artery/Lesion type: [place] artery [place] vs. transplanted heart: [place] heart Associated angina: with stable angina Qualified Code(s): I25.118 - Atherosclerotic heart disease of [place] coronary artery with other forms of angina pectoris (4) Hypertensive cardiomyopathy Code(s): I11.9 - HYPERTENSIVE HEART DISEASE WITHOUT HEART FAILURE; I42.9 - CARDIOMYOPATHY, UNSPECIFIED Qualifiers: Heart failure presence: with heart failure Qualified Code(s): I11.0 - Hypertensive heart disease with heart failure (5) Chronic kidney disease (CKD) Code(s): N18.9 - CHRONIC KIDNEY DISEASE, UNSPECIFIED Qualifiers: Chronic kidney disease stage: stage 3 (moderate) Qualified Code(s): N18.3 - Chronic kidney disease, stage 3 (moderate) (6) Pulmonary hypertension Code(s): I27.2 - OTHER SECONDARY PULMONARY HYPERTENSION * DO NOT USE * (7) S/P coronary artery stent placement Code(s): Z95.5 - PRESENCE OF CORONARY ANGIOPLASTY IMPLANT AND GRAFT (8) Tricuspid regurgitation Code(s): I07.1 - RHEUMATIC TRICUSPID INSUFFICIENCY Assessment/Plan Do not suspect active infection, possible resolving viral illness. Monitor off ABX O2 as needed No thoracentesis as effusion is small and due to paucity of findings the risk of stopping his AC does not seem to outweigh the benefit Can repeat imaging as an outpatient to document stability/improvement Coumadin Lasix Aldactone Dr Hameed Problem List - Problems (1) Acute on chronic diastolic CHF (congestive heart failure) Code(s): I50.33 - ACUTE ON CHRONIC DIASTOLIC (CONGESTIVE) HEART FAILURE (2) Atrial fibrillation with controlled ventricular response Code(s): I48.91 - UNSPECIFIED ATRIAL FIBRILLATION (3) Coronary artery disease Code(s): I25.10 - ATHSCL HEART DISEASE OF [place] CORONARY ARTERY W/O ANG PCTRS Qualifiers: Coronary Disease-Associated Artery/Lesion type: [place] artery [place] vs. transplanted heart: [place] heart Associated angina: with stable angina Qualified Code(s): I25.118 - Atherosclerotic heart disease of [place] coronary artery with other forms of angina pectoris (4) Hypertensive cardiomyopathy Code(s): I11.9 - HYPERTENSIVE HEART DISEASE WITHOUT HEART FAILURE; I42.9 - CARDIOMYOPATHY, UNSPECIFIED Qualifiers: Heart failure presence: with heart failure Qualified Code(s): I11.0 - Hypertensive heart disease with heart failure (5) Chronic kidney disease (CKD) Code(s): N18.9 - CHRONIC KIDNEY DISEASE, UNSPECIFIED Qualifiers: Chronic kidney disease stage: stage 3 (moderate) Qualified Code(s): N18.3 - Chronic kidney disease, stage 3 (moderate) (6) Pulmonary hypertension Code(s): I27.2 - OTHER SECONDARY PULMONARY HYPERTENSION * DO NOT USE * (7) S/P coronary artery stent placement Code(s): Z95.5 - PRESENCE OF CORONARY ANGIOPLASTY IMPLANT AND GRAFT (8) Tricuspid regurgitation Code(s): I07.1 - RHEUMATIC TRICUSPID INSUFFICIENCY
--- NOTE | 2017-06-17 14:23 | PN ---
Teaching Attending Note Name of Resident: . Time of evaluation: 10:50 AM SUBJECTIVE: patient seen and examined. Breathing improved, no chest pain or new complaints. Persistent cough. No fevers or chills. OBJECTIVE: Vital Signs Period Temp Pulse Resp BP Sys/Ayala Pulse Ox Last 24 Hr 97.7 F-98.6 F 52-70 18-20 145-183/69-96 98-98 Intake & Output 06/14/17 06/15/17 06/16/17 06/17/17 23:59 23:59 23:59 23:59 Intake Total 960 520 Output Total 2 450 Balance 958 70 Weight 162 lb 162 lb General: sitting in bed in no acute distress CVS: S1S2 irregular Chest: decreased breath sounds, positive air entry ABdomen: soft, obese, NT Extremities: no pedal edema, positive pulses. Active Medications Generic Name Dose Route Start Last Admin Trade Name Freq PRN Reason Stop Dose Admin Aspirin 81 mg 06/17/17 10:00 06/17/17 10:56 Asa - PO 81 mg DAILY TORIN Administration Atorvastatin Calcium 40 mg 06/16/17 22:00 06/16/17 21:51 Lipitor - PO 40 mg HS TORIN Administration Carvedilol 6.25 mg 06/16/17 22:00 06/17/17 10:56 Coreg - PO 6.25 mg BID TORIN Administration Furosemide 40 mg 06/17/17 09:45 06/17/17 10:56 Lasix Injection - IVPUSH 40 mg DAILY TORIN Administration Heparin Sodium (Porcine) 25, 500 mls @ 20 mls/hr 06/16/17 18:00 06/17/17 02: 58 000 unit/ Sodium Chloride IV 1,000 unit/hr TITR TORIN 20 mls/hr Protocol Titration 1,000 UNIT/HR Magnesium Oxide 400 mg 06/17/17 09:45 06/17/17 10:57 Mag-Ox - PO 06/19/17 23:59 400 mg BID TORIN Administration Spironolactone 25 mg 06/17/17 10:00 06/17/17 10:56 Aldactone - PO 25 mg DAILY TORIN Administration Valsartan 160 mg 06/16/17 22:00 06/17/17 10:56 Diovan - PO 160 mg BID TORIN Administration Warfarin Sodium 6 mg 06/17/17 18:00 Coumadin - PO DAILY@1800 TORIN Microbiology 06/16/17 13:45 Blood - Peripheral Venous Blood Culture - Preliminary NO GROWTH OBTAINED AFTER 24 HOURS, INCUBATION TO CONTINUE FOR 4 DAYS. 06/16/17 13:45 Blood - Peripheral Venous Blood Culture - Preliminary NO GROWTH OBTAINED AFTER 24 HOURS, INCUBATION TO CONTINUE FOR 4 DAYS. tele with paroxysmal afib ASSESSMENT AND PLAN: 82 yom from [facility] [place] admitted with dyspnea/cough, found with CHF, Hypertensive urgency, atypical chest pain, ?vague URI like illness/sore throat symptoms. -Acute systolic/diastolic heart failure exacerbation -Bilateral pleural effusions with ?small loculation in right fissure. 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 His INR is subtherapeutic currently. All this is suspicous for non compliance with his medications as well as low salt diet. Decrease lasix to 40 mg IV daily, strict I/Os, daily weights, hold off on repeat 2D echo. BP control, continue home coreg/diovan. Hydralazine IV prn for SBP > 170. Continue coreg/spironolactone. Cardiology input appreciated. Chronically elevated troponin, trended down from recent admission, ?CKD vs demand induced from CHF. EKG non concerning. Cycle troponins and monitor for now. Continue ASA/statin/coreg. Ischemia w/u once volume status improved, ?inpatient vs outpatient. Low clinical suspicion for infection.Pulmonary input noted. Ceftriaxone/ azithromycin d/sam. Follow up legionella/strep pneumoniae studies. Coumadin 6 mg tonight, heparin drip started by cardiology. Dispo pending resolution of medical issues. May need home VNS, will reassess when ready. Standing Mg supplementation. Plan discussed with patient in detail, all questions answered.
--- NOTE | 2017-06-17 15:50 | PN ---
Progress Note (short form) - Note Progress Note: ID Consult dictated' CHF Pleural effusions Doubt pneumonia Possible viral URI Agree with observing off antibiotics
--- NOTE | 2017-06-17 16:16 | CONS ---
DATE OF CONSULTATION: DATE OF DICTATION: 06/17/2017 The patient is an 82-year-old male with a history of congestive heart failure, atrial fibrillation, coronary artery disease evaluated for possible pneumonia. He was recently hospitalized at [facility] from June 01 through June 04 for congestive heart failure. He is now readmitted with a 2-day history of increasing shortness of breath, chest discomfort, and dry cough. CT scan of the chest was performed and showed bilateral pleural effusion with atelectasis. No focal consolidation was noted. He was empirically treated with Zithromax and ceftriaxone. The patient reports occasional cough productive of whitish sputum. He denies any chest pain at the present time, denies any associated fever or chills. PAST MEDICAL HISTORY: Positive for congestive heart failure, atrial fibrillation, coronary artery disease, status post coronary artery stent, hypertension, chronic kidney disease. No known allergies. MEDICATIONS AT HOME: Aspirin, Lipitor, Coreg, Lasix, potassium, Aldactone, Diovan, Coumadin. SOCIAL HISTORY: He is originally from the [place], lives in [place] at home. No active tobacco or alcohol use. SYSTEMS REVIEW: Neurologic: No loss of consciousness, seizure activity, focal weakness. Cardiac: As per HPI. Respiratory: As per HPI. Gastrointestinal: Negative vomiting or diarrhea. Genitourinary: Positive for chronic kidney disease. LABORATORY DATA: White count 5.5, hematocrit 38.5, platelet count 132. BUN 24, creatinine 1.2. Liver enzymes normal. Urinalysis with no white cells. Legionella antigen and pneumococcal antigen negative. Influenza antigen negative. CT scan as described. PHYSICAL EXAMINATION: General: He is awake and alert. He is in no acute respiratory distress. He is slightly short of breath at rest on nasal cannula O2. Vital Signs: Temperature 98.6, blood pressure 131/77, pulse 72 and regular, respirations 18 per minute. HEENT: Sclerae anicteric. Heart Sounds: Irregular, S1, S2. Lungs: Diminished breath sounds bilaterally. No rales or wheezing. Abdomen: Soft. No tenderness elicited. No mass, rebound, or rigidity. Extremities: Negative for edema. IMPRESSION: 1. Decompensated congestive heart failure. 2. Pleural effusions. 3. Doubt pneumonia. 4. Possible recent viral respiratory tract infection. No clinical or radiographic evidence to suggest acute bacterial pneumonia. Agree with stopping antibiotics and observing off. Continue treatment for congestive heart failure. Workup of pleural effusions as per Pulmonary. Thank you for this kind referral. ELZBIETA CARLTON M.D. LEELEE/[id number]
[2017-06-17] MEDS: WARFARIN NA 3 MG TABLET PO SCH (17:07)
[2017-06-17] MEDS ORDERED: WARFARIN NA 2 MG TABLET (UD) PO SCH (22:00)
[2017-06-17] MEDS: ATORVASTATIN CA 40 MG TABLET (FP) PO SCH (22:09)
[2017-06-17] MEDS: HEPARIN - 25,000 UNIT in SODIUM CHLORIDE 495 ML IV SCH (23:01)
[2017-06-18 07:04] LABS: BASOPHIL 0.9 % (0-2.0); EOSINOPHIL 6.5 % (0-4.5); MCH 27.8 pg (25.7-33.7); MCHC 32.6 g/dl (32.0-35.9); MEAN CELL VOLUME 85.2 fl (80-96); MEAN PLT VOLUME 9.5 fl (7.5-11.1); NEUTROPHILS 49.6 % (42.8-82.8); PLATELET COUNT 137 K/MM3 (134-434); RDW 15.7 % (11.9-15.9); WHITE BLOOD COUNT 5.2 K/mm3 (4.0-10.0)
[2017-06-18 07:54] LABS: ALBUMIN 3.1 g/dl (3.4-5.0); ALK PHOS 91 U/L (45-117); ANION GAP 10 (8-16); BILIRUBIN,TOTAL 0.8 mg/dL (0.2-1.0); CALCIUM 8.4 mg/dL (8.5-10.1); CO2 29 mmol/L (21-32); CREATININE 1.7 mg/dL (0.7-1.3); GLUCOSE,RANDOM 96 mg/dL (74-106); PHOSPHOROUS 3.1 mg/dL (2.5-4.9); SGOT/AST 19 U/L (15-37); SGPT/ALT 27 U/L (12-78); TOT PROT 6.4 g/dl (6.4-8.2)
[2017-06-18] MEDS ORDERED: POTASSIUM CHLORIDE TABS 20 MEQ TABLET.ER (FP) PO ONE ×2 (08:43→12:00)
[2017-06-18 09:33] LABS: INR 1.58 (0.82-1.09); PROTHROMBIN TIME (PATIENT) 17.9 SEC (9.98-11.88)
[2017-06-18] MEDS: SPIRONOLACTONE 25 MG TABLET (FP) PO SCH (10:57)
[2017-06-18] MEDS: CARVEDILOL 6.25 MG TABLET (FP) PO SCH ×2 (10:57→21:34)
[2017-06-18] MEDS: ASPIRIN 81 MG CHEWABLE TABLETS PO SCH (10:57)
[2017-06-18] MEDS: FUROSEMIDE 40 MG/4 ML INJECTABLE VIAL IVPUSH SCH (10:58)
[2017-06-18] MEDS: MAGNESIUM OXIDE 400 MG TABLET (FP) PO SCH ×2 (10:58→21:34)
[2017-06-18] MEDS: VALSARTAN 160 MG TABLET (UD) PO SCH ×2 (10:58→21:34)
--- NOTE | 2017-06-18 11:32 | PN ---
Progress Note, Physician History of Present Illness: pulmonary alert,feeling better,-cp,sob improving,-cough - Current Medication List Current Medications: Active Medications Aspirin (Asa -) 81 mg PO DAILY [facility] Last Admin: 06/18/17 10:57 Dose: 81 mg Atorvastatin Calcium (Lipitor -) 40 mg PO HS [facility] Last Admin: 06/17/17 22:09 Dose: 40 mg Carvedilol (Coreg -) 6.25 mg PO BID [facility] Last Admin: 06/18/17 10:57 Dose: 6.25 mg Furosemide (Lasix Injection -) 40 mg IVPUSH DAILY [facility] Last Admin: 06/18/17 10:58 Dose: 40 mg Heparin Sodium (Porcine) 25, (000 unit/ Sodium Chloride) 500 mls @ 20 mls/hr IV TITR TORIN; 1,000 UNIT/HR PRN Reason: Protocol Last Admin: 06/17/17 23:01 Dose: 1,000 unit/hr, 20 mls/hr Magnesium Oxide (Mag-Ox -) 400 mg PO BID [facility] Stop: 06/19/17 23:59 Last Admin: 06/18/17 10:58 Dose: 400 mg Potassium Chloride (K-Dur -) 40 meq PO ONCE ONE Stop: 06/18/17 12:01 Spironolactone (Aldactone -) 25 mg PO DAILY [facility] Last Admin: 06/18/17 10:57 Dose: 25 mg Valsartan (Diovan -) 160 mg PO BID [facility] Last Admin: 06/18/17 10:58 Dose: 160 mg Warfarin Sodium (Coumadin -) 6 mg PO DAILY@1800 [facility] Last Admin: 06/17/17 17:07 Dose: 6 mg - Objective Vital Signs: Vital Signs Temperature 98.1 F 06/18/17 06:00 Pulse Rate 70 06/18/17 06:00 Respiratory Rate 18 06/18/17 06:00 Blood Pressure 151/81 06/18/17 06:00 O2 Sat by Pulse Oximetry (%) 98 06/17/17 21:00 Constitutional: Yes: Well Nourished, Calm Eyes: Yes: WNL HENT: Yes: WNL Neck: Yes: WNL Cardiovascular: Yes: Pulse Irregular, S1, S2 Respiratory: Yes: Diminished Gastrointestinal: Yes: Normal Bowel Sounds, Soft Extremities: Yes: WNL Edema: No Labs: CBC, BMP 06/18/17 06:35 06/18/17 06:35 INR, PTT INR 1.58 (0.82-1.09) H 06/18/17 06:35 Assessment/Plan Problem List - Problems (1) Acute on chronic diastolic CHF (congestive heart failure) Code(s): I50.33 - ACUTE ON CHRONIC DIASTOLIC (CONGESTIVE) HEART FAILURE (2) Atrial fibrillation with controlled ventricular response Code(s): I48.91 - UNSPECIFIED ATRIAL FIBRILLATION (3) Coronary artery disease Code(s): I25.10 - ATHSCL HEART DISEASE OF [place] CORONARY ARTERY W/O ANG PCTRS Qualifiers: Coronary Disease-Associated Artery/Lesion type: [place] artery [place] vs. transplanted heart: [place] heart Associated angina: with stable angina Qualified Code(s): I25.118 - Atherosclerotic heart disease of [place] coronary artery with other forms of angina pectoris (4) Hypertensive cardiomyopathy Code(s): I11.9 - HYPERTENSIVE HEART DISEASE WITHOUT HEART FAILURE; I42.9 - CARDIOMYOPATHY, UNSPECIFIED Qualifiers: Heart failure presence: with heart failure Qualified Code(s): I11.0 - Hypertensive heart disease with heart failure (5) Chronic kidney disease (CKD) Code(s): N18.9 - CHRONIC KIDNEY DISEASE, UNSPECIFIED Qualifiers: Chronic kidney disease stage: stage 3 (moderate) Qualified Code(s): N18.3 - Chronic kidney disease, stage 3 (moderate) (6) Pulmonary hypertension Code(s): I27.2 - OTHER SECONDARY PULMONARY HYPERTENSION * DO NOT USE * (7) S/P coronary artery stent placement Code(s): Z95.5 - PRESENCE OF CORONARY ANGIOPLASTY IMPLANT AND GRAFT (8) Tricuspid regurgitation Code(s): I07.1 - RHEUMATIC TRICUSPID INSUFFICIENCY Assessment/Plan Do not suspect active infection, possible resolving viral illness. O2 as needed Can repeat imaging as an outpatient to document stability/improvement Coumadin Lasix Aldactone Dr [place] Problem List - Problems (1) Acute on chronic diastolic CHF (congestive heart failure) Code(s): I50.33 - ACUTE ON CHRONIC DIASTOLIC (CONGESTIVE) HEART FAILURE (2) Atrial fibrillation with controlled ventricular response Code(s): I48.91 - UNSPECIFIED ATRIAL FIBRILLATION (3) Coronary artery disease Code(s): I25.10 - ATHSCL HEART DISEASE OF [place] CORONARY ARTERY W/O ANG PCTRS Qualifiers: Coronary Disease-Associated Artery/Lesion type: [place] artery [place] vs. transplanted heart: [place] heart Associated angina: with stable angina Qualified Code(s): I25.118 - Atherosclerotic heart disease of [place] coronary artery with other forms of angina pectoris (4) Hypertensive cardiomyopathy Code(s): I11.9 - HYPERTENSIVE HEART DISEASE WITHOUT HEART FAILURE; I42.9 - CARDIOMYOPATHY, UNSPECIFIED Qualifiers: Heart failure presence: with heart failure Qualified Code(s): I11.0 - Hypertensive heart disease with heart failure (5) Chronic kidney disease (CKD) Code(s): N18.9 - CHRONIC KIDNEY DISEASE, UNSPECIFIED Qualifiers: Chronic kidney disease stage: stage 3 (moderate) Qualified Code(s): N18.3 - Chronic kidney disease, stage 3 (moderate) (6) Pulmonary hypertension Code(s): I27.2 - OTHER SECONDARY PULMONARY HYPERTENSION * DO NOT USE * (7) S/P coronary artery stent placement Code(s): Z95.5 - PRESENCE OF CORONARY ANGIOPLASTY IMPLANT AND GRAFT (8) Tricuspid regurgitation Code(s): I07.1 - RHEUMATIC TRICUSPID INSUFFICIENCY
--- NOTE | 2017-06-18 12:19 | PN ---
Progress Note, Physician History of Present Illness: 82M PMH of systolic CHF CAD s/p stent x2 A fib on Coumadin HTN and possible CKD based on previous labs presents to the ED with a chief complaint of shortness of breath, cough and 6/10 non-radiating right and left chest pain since 2 am last night. Patient admitted last week from 06/01 to 06/04 for acute on chronic CHF. 06/16/17 08:20 - Current Medication List Current Medications: Active Medications Aspirin (Asa -) 81 mg PO DAILY [facility] Last Admin: 06/18/17 10:57 Dose: 81 mg Atorvastatin Calcium (Lipitor -) 40 mg PO HS [facility] Last Admin: 06/17/17 22:09 Dose: 40 mg Carvedilol (Coreg -) 6.25 mg PO BID [facility] Last Admin: 06/18/17 10:57 Dose: 6.25 mg Furosemide (Lasix Injection -) 40 mg IVPUSH DAILY [facility] Last Admin: 06/18/17 10:58 Dose: 40 mg Heparin Sodium (Porcine) 25, (000 unit/ Sodium Chloride) 500 mls @ 20 mls/hr IV TITR TORIN; 1,000 UNIT/HR PRN Reason: Protocol Last Admin: 06/17/17 23:01 Dose: 1,000 unit/hr, 20 mls/hr Magnesium Oxide (Mag-Ox -) 400 mg PO BID [facility] Stop: 06/19/17 23:59 Last Admin: 06/18/17 10:58 Dose: 400 mg Spironolactone (Aldactone -) 25 mg PO DAILY [facility] Last Admin: 06/18/17 10:57 Dose: 25 mg Valsartan (Diovan -) 160 mg PO BID [facility] Last Admin: 06/18/17 10:58 Dose: 160 mg Warfarin Sodium (Coumadin -) 6 mg PO DAILY@1800 [facility] Last Admin: 06/17/17 17:07 Dose: 6 mg - Objective Vital Signs: Vital Signs Temperature 98.1 F 06/18/17 06:00 Pulse Rate 70 06/18/17 06:00 Respiratory Rate 18 06/18/17 06:00 Blood Pressure 151/81 06/18/17 06:00 O2 Sat by Pulse Oximetry (%) 98 06/17/17 21:00 Eyes: Yes: WNL, Conjunctiva Clear, EOM Intact HENT: Yes: WNL, Atraumatic, Normocephalic Neck: Yes: WNL, Supple, Trachea Midline Cardiovascular: Yes: WNL, Regular Rate and Rhythm Respiratory: Yes: WNL, Regular, CTA Bilaterally Gastrointestinal: Yes: WNL, Normal Bowel Sounds Genitourinary: Yes: WNL Musculoskeletal: Yes: WNL Extremities: Yes: WNL Edema: No Integumentary: Yes: WNL Neurological: Yes: WNL, Alert, Oriented ...Motor Strength: WNL Psychiatric: Yes: WNL Labs: CBC, BMP 06/18/17 06:35 06/18/17 06:35 INR, PTT INR 1.58 (0.82-1.09) H 06/18/17 06:35 Laboratory Tests 06/16/17 06/16/17 06/16/17 08:00 08:00 08:00 WBC 4.6 RBC 4.77 Hgb 13.4 Hct 40.7 MCV 85.3 MCH 28.1 MCHC 32.9 RDW 15.5 Plt Count 143 MPV 8.8 Neutrophils % 53.9 Lymphocytes % 30.7 Monocytes % 10.4 H Eosinophils % 4.2 Basophils % 0.8 PT with INR INR PTT (Actin FS) Sodium 145 Potassium 4.0 Chloride 113 H Carbon Dioxide 26 Anion Gap 6 L BUN 18 D Creatinine 1.6 H Creat Clearance w eGFR 41.49 Random Glucose 96 Calcium 8.6 Phosphorus Magnesium Total Bilirubin 1.1 H D AST 30 ALT 40 D Alkaline Phosphatase 103 Creatine Kinase 95 Troponin I 0.88 H* B-Natriuretic Peptide Total Protein 7.1 Albumin 3.5 Urine Color Urine Appearance Urine pH Ur Specific [place] Urine Protein Urine Glucose (UA) Urine Ketones Urine Blood Urine Nitrite Urine Bilirubin Urine Urobilinogen Ur Leukocyte Esterase Urine WBC (Auto) Urine RBC (Auto) 06/16/17 06/16/17 06/16/17 08:00 08:00 09:15 WBC RBC Hgb Hct MCV MCH MCHC RDW Plt Count MPV Neutrophils % Lymphocytes % Monocytes % Eosinophils % Basophils % PT with INR 17.10 H INR 1.51 H D PTT (Actin FS) Sodium Potassium Chloride Carbon Dioxide Anion Gap BUN Creatinine Creat Clearance w eGFR Random Glucose Calcium Phosphorus Magnesium Total Bilirubin AST ALT Alkaline Phosphatase Creatine Kinase Troponin I B-Natriuretic Peptide 67295.38 H Total Protein Albumin Urine Color Straw Urine Appearance Clear Urine pH 6.0 Ur Specific [place] 1.005 Urine Protein 1+ H Urine Glucose (UA) Negative Urine Ketones Negative Urine Blood 1+ H Urine Nitrite Negative Urine Bilirubin Negative Urine Urobilinogen Negative Ur Leukocyte Esterase Negative Urine WBC (Auto) None Urine RBC (Auto) 1 06/16/17 06/16/17 06/17/17 13:45 21:05 01:40 WBC RBC Hgb Hct MCV MCH MCHC RDW Plt Count MPV Neutrophils % Lymphocytes % Monocytes % Eosinophils % Basophils % PT with INR 16.60 H 15.00 H INR 1.47 H 1.33 H PTT (Actin FS) Sodium Potassium Chloride Carbon Dioxide Anion Gap BUN Creatinine Creat Clearance w eGFR Random Glucose Calcium Phosphorus Magnesium Total Bilirubin AST ALT Alkaline Phosphatase Creatine Kinase 106 Troponin I 0.77 H* B-Natriuretic Peptide Total Protein Albumin Urine Color Urine Appearance Urine pH Ur Specific [place] Urine Protein Urine Glucose (UA) Urine Ketones Urine Blood Urine Nitrite Urine Bilirubin Urine Urobilinogen Ur Leukocyte Esterase Urine WBC (Auto) Urine RBC (Auto) 06/17/17 06/17/17 06/17/17 02:00 05:42 05:42 WBC 5.5 RBC 4.52 Hgb 12.6 Hct 38.5 MCV 85.2 MCH 27.8 MCHC 32.7 RDW 15.3 Plt Count 132 L MPV 9.4 Neutrophils % 52.9 Lymphocytes % 31.3 Monocytes % 10.6 H Eosinophils % 4.3 Basophils % 0.9 PT with INR INR PTT (Actin FS) 57.0 H Sodium 146 H Potassium 3.1 L D Chloride 110 H Carbon Dioxide 25 Anion Gap 11 BUN 24 H D Creatinine 1.6 H Creat Clearance w eGFR 41.49 Random Glucose 97 Calcium 8.1 L Phosphorus 3.0 Magnesium 1.9 Total Bilirubin 1.0 AST 22 D ALT 31 D Alkaline Phosphatase 93 Creatine Kinase Troponin I B-Natriuretic Peptide Total Protein 6.3 L Albumin 3.1 L Urine Color Urine Appearance Urine pH Ur Specific [place] Urine Protein Urine Glucose (UA) Urine Ketones Urine Blood Urine Nitrite Urine Bilirubin Urine Urobilinogen Ur Leukocyte Esterase Urine WBC (Auto) Urine RBC (Auto) 06/17/17 06/17/17 06/17/17 09:18 09:18 10:33 WBC RBC Hgb Hct MCV MCH MCHC RDW Plt Count MPV Neutrophils % Lymphocytes % Monocytes % Eosinophils % Basophils % PT with INR 15.40 H INR 1.36 H PTT (Actin FS) 70.4 H Sodium Potassium Chloride Carbon Dioxide Anion Gap BUN Creatinine Creat Clearance w eGFR Random Glucose Calcium Phosphorus Magnesium Total Bilirubin AST ALT Alkaline Phosphatase Creatine Kinase 99 Troponin I 0.74 H* B-Natriuretic Peptide Total Protein Albumin Urine Color Urine Appearance Urine pH Ur Specific [place] Urine Protein Urine Glucose (UA) Urine Ketones Urine Blood Urine Nitrite Urine Bilirubin Urine Urobilinogen Ur Leukocyte Esterase Urine WBC (Auto) Urine RBC (Auto) 06/18/17 06/18/17 06/18/17 06:35 06:35 06:35 WBC 5.2 RBC 4.73 Hgb 13.1 Hct 40.3 MCV 85.2 MCH 27.8 MCHC 32.6 RDW 15.7 Plt Count 137 MPV 9.5 Neutrophils % 49.6 Lymphocytes % 32.5 Monocytes % 10.5 H Eosinophils % 6.5 H Basophils % 0.9 PT with INR INR PTT (Actin FS) 82.8 H Sodium 144 Potassium 3.0 L Chloride 105 Carbon Dioxide 29 Anion Gap 10 BUN 26 H Creatinine 1.7 H Creat Clearance w eGFR 38.68 Random Glucose 96 Calcium 8.4 L Phosphorus 3.1 Magnesium 2.0 Total Bilirubin 0.8 AST 19 ALT 27 Alkaline Phosphatase 91 Creatine Kinase Troponin I B-Natriuretic Peptide Total Protein 6.4 Albumin 3.1 L Urine Color Urine Appearance Urine pH Ur Specific [place] Urine Protein Urine Glucose (UA) Urine Ketones Urine Blood Urine Nitrite Urine Bilirubin Urine Urobilinogen Ur Leukocyte Esterase Urine WBC (Auto) Urine RBC (Auto) 06/18/17 06:35 WBC RBC Hgb Hct MCV MCH MCHC RDW Plt Count MPV Neutrophils % Lymphocytes % Monocytes % Eosinophils % Basophils % PT with INR 17.90 H INR 1.58 H PTT (Actin FS) Sodium Potassium Chloride Carbon Dioxide Anion Gap BUN Creatinine Creat Clearance w eGFR Random Glucose Calcium Phosphorus Magnesium Total Bilirubin AST ALT Alkaline Phosphatase Creatine Kinase Troponin I B-Natriuretic Peptide Total Protein Albumin Urine Color Urine Appearance Urine pH Ur Specific [place] Urine Protein Urine Glucose (UA) Urine Ketones Urine Blood Urine Nitrite Urine Bilirubin Urine Urobilinogen Ur Leukocyte Esterase Urine WBC (Auto) Urine RBC (Auto) Problem List - Problems (1) Acute on chronic diastolic CHF (congestive heart failure) Code(s): I50.33 - ACUTE ON CHRONIC DIASTOLIC (CONGESTIVE) HEART FAILURE (2) Atrial fibrillation with controlled ventricular response Code(s): I48.91 - UNSPECIFIED ATRIAL FIBRILLATION (3) CHF (congestive heart failure) Code(s): I50.9 - HEART FAILURE, UNSPECIFIED Qualifiers: Congestive heart failure type: unspecified congestive heart failure type Congestive heart failure chronicity: acute on chronic Qualified Code(s): I50.9 - Heart failure, unspecified (4) Coronary artery disease Code(s): I25.10 - ATHSCL HEART DISEASE OF [place] CORONARY ARTERY W/O ANG PCTRS Qualifiers: Coronary Disease-Associated Artery/Lesion type: [place] artery [place] vs. transplanted heart: [place] heart Associated angina: with stable angina Qualified Code(s): I25.118 - Atherosclerotic heart disease of [place] coronary artery with other forms of angina pectoris (5) Elevated troponin Code(s): R74.8 - ABNORMAL LEVELS OF OTHER SERUM ENZYMES (6) Hypertensive cardiomyopathy Code(s): I11.9 - HYPERTENSIVE HEART DISEASE WITHOUT HEART FAILURE; I42.9 - CARDIOMYOPATHY, UNSPECIFIED Qualifiers: Heart failure presence: with heart failure Qualified Code(s): I11.0 - Hypertensive heart disease with heart failure (7) Hypokalemia Code(s): E87.6 - HYPOKALEMIA (8) Subendocardial ischemia Code(s): I24.8 - OTHER FORMS OF ACUTE ISCHEMIC HEART DISEASE (9) Chronic kidney disease (CKD) Code(s): N18.9 - CHRONIC KIDNEY DISEASE, UNSPECIFIED Qualifiers: Chronic kidney disease stage: stage 3 (moderate) Qualified Code(s): N18.3 - Chronic kidney disease, stage 3 (moderate) (10) Pulmonary hypertension Code(s): I27.2 - OTHER SECONDARY PULMONARY HYPERTENSION * DO NOT USE * (11) S/P coronary artery stent placement Code(s): Z95.5 - PRESENCE OF CORONARY ANGIOPLASTY IMPLANT AND GRAFT (12) Tricuspid regurgitation Code(s): I07.1 - RHEUMATIC TRICUSPID INSUFFICIENCY (13) Acute kidney injury Code(s): N17.9 - ACUTE KIDNEY FAILURE, UNSPECIFIED Assessment/Plan IMP: Acute on chronic systolic CHF CAD s/p PCI 2007 CKD Moderate chronic PHTN Permanent AF on coumadin non-stemi REC: change IV Lasix to PO -Needs Mg and K repleted Persantine MIBI -Suspect low level TnI w/ nl CK is due to CHF/CKD. Heparin bridge to coumadin w/ target INR 2-3
--- NOTE | 2017-06-18 14:20 | EKG ---
Test Reason : Blood Pressure : / mmHG Vent. Rate : 076 BPM Atrial Rate : 468 BPM P-R Int : 000 ms QRS Dur : 106 ms QT Int : 436 ms P-R-T Axes : 000 027 189 degrees QTc Int : 490 ms ATRIAL FIBRILLATION WITH PREMATURE VENTRICULAR OR ABERRANTLY CONDUCTED COMPLEXES VOLTAGE CRITERIA FOR LEFT VENTRICULAR HYPERTROPHY POSSIBLE INFERIOR INFARCT (CITED ON OR BEFORE 30-OCT-2016) ABNORMAL ECG WHEN COMPARED WITH ECG OF 16-JUN-2017 08:17, T WAVE INVERSION MORE EVIDENT IN ANTERIOR LEADS Confirmed by LITZY LY MD ([id number]) on 06/18/2017 2:20:34 PM Referred By: Debbie CRUZ Confirmed By:LITZY LY MD
--- NOTE | 2017-06-18 15:20 | PN ---
Physical Exam: SUBJECTIVE: Patient seen and examined at bedside. Patient denies any acute complaints. Denies chest pain, shortness of breath. Patient cannot recall his home dose of coumadin when asked. OBJECTIVE: Vital Signs Period Temp Pulse Resp BP Sys/Ayala Pulse Ox Last 24 Hr 98.0 F-98.3 F 60-70 18-18 130-158/61-90 98 GENERAL: Awake, alert, and fully oriented, in no acute distress. HEAD: Normal with no signs of trauma. EYES: Pupils equal, round and reactive to light, extraocular movements intact, sclera anicteric, conjunctiva clear. No lid lag. EARS, NOSE, THROAT: Ears normal, nares patent, oropharynx clear mild erythem, Moist mucous membranes. NECK: Normal range of motion, supple without lymphadenopathy, JVD, or masses. LUNGS: Breath sounds equal, clear to auscultation bilaterally. No wheezes, and no crackles. No accessory muscle use. HEART: Regular rate and irregular rhythm, normal S1 and S2 without murmur, rub or gallop. ABDOMEN: Soft, nontender, not distended, normoactive bowel sounds, no guarding, no rebound, no masses. No hepatomegaly or splenomegaly. MUSCULOSKELETAL: Normal range of motion at all joints. No bony deformities or tenderness. No CVA tenderness. UPPER EXTREMITIES: 2+ pulses, warm, well-perfused. No cyanosis. No clubbing. No peripheral edema. LOWER EXTREMITIES: 2+ pulses, warm, well-perfused. No calf tenderness. No peripheral edema. NEUROLOGICAL: Cranial nerves II-XII intact. Normal speech. Normal gait. PSYCHIATRIC: Cooperative. Good eye contact. Appropriate mood and affect. SKIN: Warm, dry, normal turgor, no rashes or lesions noted, normal capillary refill. Laboratory Results - last 24 hr 06/18/17 06/18/17 06/18/17 06:35 06:35 06:35 WBC 5.2 RBC 4.73 Hgb 13.1 Hct 40.3 MCV 85.2 MCH 27.8 MCHC 32.6 RDW 15.7 Plt Count 137 MPV 9.5 Neutrophils % 49.6 Lymphocytes % 32.5 Monocytes % 10.5 H Eosinophils % 6.5 H Basophils % 0.9 PT with INR INR PTT (Actin FS) 82.8 H Sodium 144 Potassium 3.0 L Chloride 105 Carbon Dioxide 29 Anion Gap 10 BUN 26 H Creatinine 1.7 H Creat Clearance w eGFR 38.68 Random Glucose 96 Calcium 8.4 L Phosphorus 3.1 Magnesium 2.0 Total Bilirubin 0.8 AST 19 ALT 27 Alkaline Phosphatase 91 Total Protein 6.4 Albumin 3.1 L 06/18/17 06:35 WBC RBC Hgb Hct MCV MCH MCHC RDW Plt Count MPV Neutrophils % Lymphocytes % Monocytes % Eosinophils % Basophils % PT with INR 17.90 H INR 1.58 H PTT (Actin FS) Sodium Potassium Chloride Carbon Dioxide Anion Gap BUN Creatinine Creat Clearance w eGFR Random Glucose Calcium Phosphorus Magnesium Total Bilirubin AST ALT Alkaline Phosphatase Total Protein Albumin Active Medications Generic Name Dose Route Start Last Admin Trade Name Freq PRN Reason Stop Dose Admin Aspirin 81 mg 06/17/17 10:00 06/18/17 10:57 Asa - PO 81 mg DAILY TORIN Administration Atorvastatin Calcium 40 mg 06/16/17 22:00 06/17/17 22:09 Lipitor - PO 40 mg HS TORIN Administration Carvedilol 6.25 mg 06/16/17 22:00 06/18/17 10:57 Coreg - PO 6.25 mg BID TORIN Administration Furosemide 40 mg 06/19/17 06:00 Lasix - PO BID@0600,1400 [facility] Heparin Sodium (Porcine) 25, 500 mls @ 20 mls/hr 06/16/17 18:00 06/17/17 23: 01 000 unit/ Sodium Chloride IV 1,000 unit/hr TITR TORIN 20 mls/hr Protocol Administration 1,000 UNIT/HR Magnesium Oxide 400 mg 06/17/17 09:45 06/18/17 10:58 Mag-Ox - PO 06/19/17 23:59 400 mg BID TORIN Administration Spironolactone 25 mg 06/17/17 10:00 06/18/17 10:57 Aldactone - PO 25 mg DAILY TORIN Administration Valsartan 160 mg 06/16/17 22:00 06/18/17 10:58 Diovan - PO 160 mg BID TORIN Administration Warfarin Sodium 6 mg 06/17/17 18:00 06/17/17 17:07 Coumadin - PO 6 mg DAILY@1800 T[facility] Administration ASSESSMENT/PLAN: 82 year old male with a past medical history of CAD s/p stent, afib on coumadin , CKD and CHF, admitted to the hospital for the treatment of CHF exacerbation #CHF Exacerbation: improving -switch lasix to 40mg PO BID -daily weights -strict I's/O's -appreciate cardiology recommendation to continue hep drip #Troponinemia: could be chronic due to CKD -continue aspirin -continue statin -stress test tomorrow #Atrial fibrillation: patient is on coumadin 4mg at home but was found to be subtherapeutic, suggestive of noncompliance -continue coumadin 6mg PO -continue heparin drip bridge to coumadin per cardiology reccs #Hypertension: controlled -continue home carvedilol 6.25 PO BID -continue home valsartan 160mg PO BID #Chronic Kidney Disease: patient's creatinine stable at 1.7 -could be causing his troponinemia #FEN -Sodium controlled diet -replete electrolytes as needed -no standing fluids #Prophylaxis -pt is on coumadin #Disposition: Continue to monitor on telemetry full code Visit type - Emergency Visit Emergency Visit: No - New Patient This patient is new to me today: Yes Date on this admission: 06/18/17 - Critical Care Critical Care patient: No
--- NOTE | 2017-06-18 16:36 | PN ---
Teaching Attending Note Name of Resident: Aamir Garcia ATTENDING PHYSICIAN STATEMENT Time of evaluation: 11:15 AM I saw and evaluated the patient. I reviewed the resident's note and discussed the case with the resident. I agree with the resident's findings and plan as documented. SUBJECTIVE: Patient seen and examined. BReathing improving, cough better, no chest pain, no new complaints. OBJECTIVE: Vital Signs Period Temp Pulse Resp BP Sys/Ayala Pulse Ox Last 24 Hr 98 F-98.3 F 60-71 18-18 130-162/61-90 98 Intake & Output 06/15/17 06/16/17 06/17/17 06/18/17 23:59 23:59 23:59 23:59 Intake Total 960 1000 990 Output Total 2 1850 600 Balance 958 -850 390 Weight 162 lb 162 lb 161 lb 6.4 oz General: lying in bed in no acute distress CVS:S1S2 irregular Chest: improved air entry, occasional right basilar rales, no wheezing abdomen: soft, NT, ND, positive bowel sounds extremities no edema Active Medications Generic Name Dose Route Start Last Admin Trade Name Manjinder PRN Reason Stop Dose Admin Aspirin 81 mg 06/17/17 10:00 06/18/17 10:57 Asa - PO 81 mg DAILY TORIN Administration Atorvastatin Calcium 40 mg 06/16/17 22:00 06/17/17 22:09 Lipitor - PO 40 mg HS TORIN Administration Carvedilol 6.25 mg 06/16/17 22:00 06/18/17 10:57 Coreg - PO 6.25 mg BID TORIN Administration Furosemide 40 mg 06/19/17 06:00 Lasix - PO BID@0600,1400 [facility] Heparin Sodium (Porcine) 25, 500 mls @ 20 mls/hr 06/16/17 18:00 06/17/17 23: 01 000 unit/ Sodium Chloride IV 1,000 unit/hr TITR TORIN 20 mls/hr Protocol Administration 1,000 UNIT/HR Magnesium Oxide 400 mg 06/17/17 09:45 06/18/17 10:58 Mag-Ox - PO 06/19/17 23:59 400 mg BID TORIN Administration Spironolactone 25 mg 06/17/17 10:00 06/18/17 10:57 Aldactone - PO 25 mg DAILY TORIN Administration Valsartan 160 mg 06/16/17 22:00 06/18/17 10:58 Diovan - PO 160 mg BID TORIN Administration Warfarin Sodium 6 mg 06/17/17 18:00 06/17/17 17:07 Coumadin - PO 6 mg DAILY@1800 [facility] Administration Laboratory Results - last 24 hr 06/18/17 06/18/17 06/18/17 06:35 06:35 06:35 WBC 5.2 RBC 4.73 Hgb 13.1 Hct 40.3 MCV 85.2 MCH 27.8 MCHC 32.6 RDW 15.7 Plt Count 137 MPV 9.5 Neutrophils % 49.6 Lymphocytes % 32.5 Monocytes % 10.5 H Eosinophils % 6.5 H Basophils % 0.9 PT with INR INR PTT (Actin FS) 82.8 H Sodium 144 Potassium 3.0 L Chloride 105 Carbon Dioxide 29 Anion Gap 10 BUN 26 H Creatinine 1.7 H Creat Clearance w eGFR 38.68 Random Glucose 96 Calcium 8.4 L Phosphorus 3.1 Magnesium 2.0 Total Bilirubin 0.8 AST 19 ALT 27 Alkaline Phosphatase 91 Total Protein 6.4 Albumin 3.1 L 06/18/17 06:35 WBC RBC Hgb Hct MCV MCH MCHC RDW Plt Count MPV Neutrophils % Lymphocytes % Monocytes % Eosinophils % Basophils % PT with INR 17.90 H INR 1.58 H PTT (Actin FS) Sodium Potassium Chloride Carbon Dioxide Anion Gap BUN Creatinine Creat Clearance w eGFR Random Glucose Calcium Phosphorus Magnesium Total Bilirubin AST ALT Alkaline Phosphatase Total Protein Albumin Microbiology 06/16/17 13:45 Blood - Peripheral Venous Blood Culture - Preliminary NO GROWTH OBTAINED AFTER 48 HOURS, INCUBATION TO CONTINUE FOR 3 DAYS. 06/16/17 13:45 Blood - Peripheral Venous Blood Culture - Preliminary NO GROWTH OBTAINED AFTER 48 HOURS, INCUBATION TO CONTINUE FOR 3 DAYS. 06/17/17 13:30 Nasopharyngeal Swab Respiratory Syncytial Virus Ag - Final 06/17/17 13:00 Urine - Urine Clean Catch Legionella Antigen - Final 06/17/17 13:00 Urine - Urine Clean Catch Streptococcus pneumoniae Antigen ( M - Final ASSESSMENT AND PLAN: 2 yom from [facility] admitted with dyspnea/cough, found with CHF, Hypertensive urgency, atypical chest pain, ?vague URI like illness/sore throat symptoms. -Acute systolic/diastolic heart failure exacerbation -Bilateral pleural effusions with ?small loculation in right fissure. Suspect CHF related based on presentation -Hypertensive urgency, resolved -Elevated troponin, chronically elevated, ?from CKD, trending down from recent admit in 06/04/2017 -YFN on CKD stage II-III -Atrial fibrillation on coumadin -Atypical Chest pain -URI like prodrome with sore throat -Hypomagnesemia -Hypokalemia Plan: patient with similar prior presentation recently when was found with CHF, elevated BP, mildly elevated troponin. His INR is subtherapeutic currently. All this is suspicous for non compliance with his medications as well as low salt diet. DIuresing well, change lasix to 40 mg PO BID, and resume home dose on d/c. Recent 2D echo., Continue spironolactone. Cardiology input appreciated. Chronically elevated troponin, trended down from recent admission, ?CKD vs demand induced from CHF. EKG non concerning. Discussed with Dr. Perla,stress test in AM. Coreg increased. Continue ASA/statin. Low clinical suspicion for infection.Pulmonary input noted. Ceftriaxone/ azithromycin d/sam. legionella/strep pneumoniae studies neg. Standing Mg supplementation. Coumadin 6 mg tonight, heparin drip started by cardiology. Dispo pending resolution of medical issues. May need home VNS, will reassess when ready. Plan discussed with patient in detail, all questions answered.
[2017-06-18] MEDS: WARFARIN NA 3 MG TABLET PO SCH (17:46)
[2017-06-18] MEDS: HEPARIN - 25,000 UNIT in SODIUM CHLORIDE 495 ML IV SCH (18:09)
[2017-06-18] MEDS: ATORVASTATIN CA 40 MG TABLET (FP) PO SCH (21:34)
--- NOTE | 2017-06-18 23:01 | EKG ---
Test Reason : Blood Pressure : / mmHG Vent. Rate : 067 BPM Atrial Rate : 071 BPM P-R Int : 000 ms QRS Dur : 102 ms QT Int : 442 ms P-R-T Axes : 000 025 210 degrees QTc Int : 467 ms ATRIAL FIBRILLATION WITH PREMATURE VENTRICULAR OR ABERRANTLY CONDUCTED COMPLEXES MINIMAL VOLTAGE CRITERIA FOR LVH, MAY BE NORMAL VARIANT POSSIBLE INFERIOR INFARCT (CITED ON OR BEFORE 30-OCT-2016) ABNORMAL ECG WHEN COMPARED WITH ECG OF 01-JUN-2017 13:12, NO SIGNIFICANT CHANGE WAS FOUND Confirmed by LITZY LY MD ([id number]) on 06/18/2017 11:01:33 PM Referred By: Confirmed By:LITZY LY MD
[2017-06-19] MEDS: FUROSEMIDE 40 MG TABLET (FP) PO SCH ×2 (06:40→16:50)
[2017-06-19 07:31] LABS: EOSINOPHIL 7.3 % (0-4.5); MCH 28.2 pg (25.7-33.7); MCHC 32.8 g/dl (32.0-35.9); MEAN CELL VOLUME 85.7 fl (80-96); MEAN PLT VOLUME 9.3 fl (7.5-11.1); PLATELET COUNT 139 K/MM3 (134-434); RDW 15.1 % (11.9-15.9); WHITE BLOOD COUNT 4.9 K/mm3 (4.0-10.0)
[2017-06-19 07:57] LABS: ALBUMIN 3.1 g/dl (3.4-5.0); ANION GAP 6 (8-16); BILIRUBIN,TOTAL 0.5 mg/dL (0.2-1.0); CALCIUM 8.2 mg/dL (8.5-10.1); CO2 28 mmol/L (21-32); CREATININE 1.6 mg/dL (0.7-1.3); GLUCOSE,RANDOM 95 mg/dL (74-106); MAGNESIUM 2.2 mg/dL (1.8-2.4); SGOT/AST 19 U/L (15-37); SGPT/ALT 27 U/L (12-78); TOT PROT 6.5 g/dl (6.4-8.2)
[2017-06-19 07:58] LABS: ALK PHOS 93 U/L (45-117)
[2017-06-19] MEDS ORDERED: FUROSEMIDE 40 MG TABLET (FP) PO SCH ×2 (08:00→16:00)
[2017-06-19] MEDS: SPIRONOLACTONE 25 MG TABLET (FP) PO SCH (09:51)
[2017-06-19] MEDS: VALSARTAN 160 MG TABLET (UD) PO SCH ×2 (09:51→21:50)
[2017-06-19] MEDS: ASPIRIN 81 MG CHEWABLE TABLETS PO SCH (09:51)
[2017-06-19] MEDS: MAGNESIUM OXIDE 400 MG TABLET (FP) PO SCH ×2 (09:52→21:50)
--- NOTE | 2017-06-19 10:24 | EKG ---
Test Reason : Blood Pressure : / mmHG Vent. Rate : 051 BPM Atrial Rate : 375 BPM P-R Int : 000 ms QRS Dur : 100 ms QT Int : 450 ms P-R-T Axes : 000 020 219 degrees QTc Int : 414 ms ATRIAL FIBRILLATION WITH SLOW VENTRICULAR RESPONSE VOLTAGE CRITERIA FOR LEFT VENTRICULAR HYPERTROPHY INFERIOR INFARCT (CITED ON OR BEFORE 30-OCT-2016) ABNORMAL ECG WHEN COMPARED WITH ECG OF 17-JUN-2017 09:10, VENT. RATE HAS DECREASED BY 25 BPM INVERTED T WAVES HAVE REPLACED NONSPECIFIC T WAVE ABNORMALITY IN INFERIOR LEADS QT HAS SHORTENED Confirmed by EVER AMADOR, QUINCY ([id number]) on 06/19/2017 10:24:16 AM Referred By: Annette SUNG Confirmed By:QUINCY CURTIS MD
[2017-06-19] MEDS ORDERED: DIPYRIDAMOLE STRESS TEST IVPB ONE (10:30)
[2017-06-19] MEDS ORDERED: DEXTROSE 5% IVPB ONE (10:30)
[2017-06-19] MEDS ORDERED: WATER IVPB ONE (10:30)
[2017-06-19] MEDS: CARVEDILOL 6.25 MG TABLET (FP) PO SCH (10:47)
--- NOTE | 2017-06-19 11:28 | PN ---
Progress Note, Physician History of Present Illness: pulmonary alert,less dyspneic,-cp,-cough - Current Medication List Current Medications: Active Medications Aspirin (Asa -) 81 mg PO DAILY [facility] Last Admin: 06/19/17 09:51 Dose: 81 mg Atorvastatin Calcium (Lipitor -) 40 mg PO HS [facility] Last Admin: 06/18/17 21:34 Dose: 40 mg Carvedilol (Coreg -) 6.25 mg PO BID [facility] Last Admin: 06/18/17 21:34 Dose: 6.25 mg Furosemide (Lasix -) 40 mg PO BID@0600,1400 [facility] Last Admin: 06/19/17 06:40 Dose: 40 mg Heparin Sodium (Porcine) 25, (000 unit/ Sodium Chloride) 500 mls @ 20 mls/hr IV TITR [facility]; 1,000 UNIT/HR PRN Reason: Protocol Last Admin: 06/18/17 18:09 Dose: 950 unit/hr, 19 mls/hr Magnesium Oxide (Mag-Ox -) 400 mg PO BID [facility] Stop: 06/19/17 23:59 Last Admin: 06/19/17 09:52 Dose: 400 mg Spironolactone (Aldactone -) 25 mg PO DAILY [facility] Last Admin: 06/19/17 09:51 Dose: 25 mg Valsartan (Diovan -) 160 mg PO BID [facility] Last Admin: 06/19/17 09:51 Dose: 160 mg Warfarin Sodium (Coumadin -) 6 mg PO DAILY@1800 [facility] Last Admin: 06/18/17 17:46 Dose: 6 mg - Objective Vital Signs: Vital Signs Temperature 97.8 F 06/19/17 05:49 Pulse Rate 55 L 06/19/17 05:49 Respiratory Rate 20 06/19/17 05:49 Blood Pressure 142/88 06/19/17 05:49 O2 Sat by Pulse Oximetry (%) 99 06/18/17 21:00 Constitutional: Yes: Well Nourished, Calm Eyes: Yes: WNL HENT: Yes: WNL Neck: Yes: WNL Cardiovascular: Yes: Pulse Irregular, S1, S2 Respiratory: Yes: Diminished Gastrointestinal: Yes: Normal Bowel Sounds, Soft Extremities: Yes: WNL Edema: No Labs: CBC, BMP 06/19/17 06:30 06/19/17 06:30 INR, PTT INR 1.58 (0.82-1.09) H 06/18/17 06:35 Assessment/Plan Problem List - Problems (1) Acute on chronic diastolic CHF (congestive heart failure) Code(s): I50.33 - ACUTE ON CHRONIC DIASTOLIC (CONGESTIVE) HEART FAILURE (2) Atrial fibrillation with controlled ventricular response Code(s): I48.91 - UNSPECIFIED ATRIAL FIBRILLATION (3) Coronary artery disease Code(s): I25.10 - ATHSCL HEART DISEASE OF [place] CORONARY ARTERY W/O ANG PCTRS Qualifiers: Coronary Disease-Associated Artery/Lesion type: [place] artery [place] vs. transplanted heart: [place] heart Associated angina: with stable angina Qualified Code(s): I25.118 - Atherosclerotic heart disease of [place] coronary artery with other forms of angina pectoris (4) Hypertensive cardiomyopathy Code(s): I11.9 - HYPERTENSIVE HEART DISEASE WITHOUT HEART FAILURE; I42.9 - CARDIOMYOPATHY, UNSPECIFIED Qualifiers: Heart failure presence: with heart failure Qualified Code(s): I11.0 - Hypertensive heart disease with heart failure (5) Chronic kidney disease (CKD) Code(s): N18.9 - CHRONIC KIDNEY DISEASE, UNSPECIFIED Qualifiers: Chronic kidney disease stage: stage 3 (moderate) Qualified Code(s): N18.3 - Chronic kidney disease, stage 3 (moderate) (6) Pulmonary hypertension Code(s): I27.2 - OTHER SECONDARY PULMONARY HYPERTENSION * DO NOT USE * (7) S/P coronary artery stent placement Code(s): Z95.5 - PRESENCE OF CORONARY ANGIOPLASTY IMPLANT AND GRAFT (8) Tricuspid regurgitation Code(s): I07.1 - RHEUMATIC TRICUSPID INSUFFICIENCY 9 PULMONARY HTN Assessment/Plan O2 as needed Can repeat imaging as an outpatient to document stability/improvement Coumadin Lasix Aldactone Dr [place] Problem List - Problems (1) Acute on chronic diastolic CHF (congestive heart failure) Code(s): I50.33 - ACUTE ON CHRONIC DIASTOLIC (CONGESTIVE) HEART FAILURE (2) Atrial fibrillation with controlled ventricular response Code(s): I48.91 - UNSPECIFIED ATRIAL FIBRILLATION (3) Coronary artery disease Code(s): I25.10 - ATHSCL HEART DISEASE OF [place] CORONARY ARTERY W/O ANG PCTRS Qualifiers: Coronary Disease-Associated Artery/Lesion type: [place] artery [place] vs. transplanted heart: [place] heart Associated angina: with stable angina Qualified Code(s): I25.118 - Atherosclerotic heart disease of [place] coronary artery with other forms of angina pectoris (4) Hypertensive cardiomyopathy Code(s): I11.9 - HYPERTENSIVE HEART DISEASE WITHOUT HEART FAILURE; I42.9 - CARDIOMYOPATHY, UNSPECIFIED Qualifiers: Heart failure presence: with heart failure Qualified Code(s): I11.0 - Hypertensive heart disease with heart failure (5) Chronic kidney disease (CKD) Code(s): N18.9 - CHRONIC KIDNEY DISEASE, UNSPECIFIED Qualifiers: Chronic kidney disease stage: stage 3 (moderate) Qualified Code(s): N18.3 - Chronic kidney disease, stage 3 (moderate) (6) Pulmonary hypertension Code(s): I27.2 - OTHER SECONDARY PULMONARY HYPERTENSION * DO NOT USE * (7) S/P coronary artery stent placement Code(s): Z95.5 - PRESENCE OF CORONARY ANGIOPLASTY IMPLANT AND GRAFT (8) Tricuspid regurgitation Code(s): I07.1 - RHEUMATIC TRICUSPID INSUFFICIENCY
[2017-06-19 12:02] LABS: INR 2.26 (0.82-1.09); PROTHROMBIN TIME (PATIENT) 25.5 SEC (9.98-11.88)
--- NOTE | 2017-06-19 15:02 | PN ---
Physical Exam: SUBJECTIVE: Patient seen and examined at bedside. He states that last night he had some mild achy chest pain and shortness of breath around 3am after he was woken up by a neighboring patient. He states that it lasted for a little while but he cannot recall the exact amount of time. He currently denies chest pain, SOB, nausea, vomiting, diarrhea, swelling. OBJECTIVE: Vital Signs Period Temp Pulse Resp BP Sys/Ayala Pulse Ox Last 24 Hr 97.3 F-98.8 F 52-71 18-20 137-177/66-100 99-99 GENERAL: Awake, alert, and fully oriented, in no acute distress. HEAD: Normal with no signs of trauma. EYES: Pupils equal, round and reactive to light, extraocular movements intact, sclera anicteric, conjunctiva clear. No lid lag. EARS, NOSE, THROAT: Ears normal, nares patent, oropharynx clear mild erythem, Moist mucous membranes. NECK: Normal range of motion, supple without lymphadenopathy, JVD, or masses. LUNGS: Breath sounds equal, clear to auscultation bilaterally. No wheezes, and no crackles. No accessory muscle use. HEART: Regular rate and irregular rhythm, normal S1 and S2 without murmur, rub or gallop. ABDOMEN: Soft, nontender, not distended, normoactive bowel sounds, no guarding, no rebound, no masses. No hepatomegaly or splenomegaly. MUSCULOSKELETAL: Normal range of motion at all joints. No bony deformities or tenderness. No CVA tenderness. UPPER EXTREMITIES: 2+ pulses, warm, well-perfused. No cyanosis. No clubbing. No peripheral edema. LOWER EXTREMITIES: 2+ pulses, warm, well-perfused. No calf tenderness. No peripheral edema. NEUROLOGICAL: Cranial nerves II-XII intact. Normal speech. Normal gait. PSYCHIATRIC: Cooperative. Good eye contact. Appropriate mood and affect. SKIN: Warm, dry, normal turgor, no rashes or lesions noted, normal capillary refill. Laboratory Results - last 24 hr 06/19/17 06/19/17 06/19/17 06:30 06:30 06:30 WBC 4.9 RBC 4.75 Hgb 13.4 Hct 40.7 MCV 85.7 MCH 28.2 MCHC 32.8 RDW 15.1 Plt Count 139 MPV 9.3 Neutrophils % 47.0 Lymphocytes % 35.7 Monocytes % 9.0 Eosinophils % 7.3 H Basophils % 1.0 PT with INR INR PTT (Actin FS) 79.1 H Sodium 143 Potassium 3.7 D Chloride 109 H Carbon Dioxide 28 Anion Gap 6 L BUN 31 H Creatinine 1.6 H Creat Clearance w eGFR 41.49 Random Glucose 95 Calcium 8.2 L Phosphorus 3.0 Magnesium 2.2 Total Bilirubin 0.5 D AST 19 ALT 27 Alkaline Phosphatase 93 Troponin I Total Protein 6.5 Albumin 3.1 L 06/19/17 06/19/17 11:15 14:00 WBC RBC Hgb Hct MCV MCH MCHC RDW Plt Count MPV Neutrophils % Lymphocytes % Monocytes % Eosinophils % Basophils % PT with INR 25.50 H INR 2.26 H D PTT (Actin FS) Sodium Potassium Chloride Carbon Dioxide Anion Gap BUN Creatinine Creat Clearance w eGFR Random Glucose Calcium Phosphorus Magnesium Total Bilirubin AST ALT Alkaline Phosphatase Troponin I 0.69 H* Total Protein Albumin Active Medications Generic Name Dose Route Start Last Admin Trade Name Freq PRN Reason Stop Dose Admin Aspirin 81 mg 06/17/17 10:00 06/19/17 09:51 Asa - PO 81 mg DAILY [facility] Administration Atorvastatin Calcium 40 mg 06/16/17 22:00 06/18/17 21:34 Lipitor - PO 40 mg HS [facility]ORIN Administration Carvedilol 6.25 mg 06/16/17 22:00 06/19/17 10:47 Coreg - PO Not Given BID [facility] Furosemide 40 mg 06/19/17 06:00 06/19/17 06:40 Lasix - PO 40 mg BID@0600,1400 [facility] Administration Heparin Sodium (Porcine) 25, 500 mls @ 20 mls/hr 06/16/17 18:00 06/18/17 18: 09 000 unit/ Sodium Chloride IV 950 unit/hr TITR [facility] 19 mls/hr Protocol Administration 1,000 UNIT/HR Magnesium Oxide 400 mg 06/17/17 09:45 06/19/17 09:52 Mag-Ox - PO 06/19/17 23:59 400 mg BID [facility] Administration Spironolactone 50 mg 06/20/17 10:00 Aldactone - PO DAILY [facility] Valsartan 160 mg 06/16/17 22:00 06/19/17 09:51 Diovan - PO 160 mg BID [facility] Administration Warfarin Sodium 6 mg 06/17/17 18:00 06/18/17 17:46 Coumadin - PO 6 mg DAILY@1800 [facility] Administration ASSESSMENT/PLAN: 82 year old male with a past medical history of CAD s/p stent, afib on coumadin , CKD and CHF, admitted to the hospital for the treatment of CHF exacerbation #CHF Exacerbation: improving -continue lasix to 40mg PO BID -daily weights -strict I's/O's -appreciate cardiology recommendation to continue hep drip #Acute chest pain: r/o ACS, no current symptoms -repeat troponin 0.69, EKG shows new T wave inversion -continue aspirin -continue statin -stress test today #Atrial fibrillation: patient is on coumadin 4mg at home but was found to be subtherapeutic, suggestive of noncompliance -patient's INR 2.26 -continue coumadin 6mg PO -continue heparin drip bridge to coumadin per cardiology reccs #Hypertension: controlled -continue home carvedilol 6.25 PO BID -continue home valsartan 160mg PO BID -increase spironolactone to 50mg PO QD #Chronic Kidney Disease: patient's creatinine stable at 1.7 -could be causing his troponinemia #FEN -Sodium controlled diet -replete electrolytes as needed -no standing fluids #Prophylaxis -pt is on coumadin #Disposition: Continue to monitor on telemetry, DC planning tomorrow full code Visit type - Emergency Visit Emergency Visit: No - New Patient This patient is new to me today: No - Critical Care Critical Care patient: No
--- NOTE | 2017-06-19 16:00 | PN ---
Teaching Attending Note Name of Resident: Aamir Garcia ATTENDING PHYSICIAN STATEMENT I saw and evaluated the patient. I reviewed the resident's note and discussed the case with the resident. I agree with the resident's findings and plan as documented. SUBJECTIVE:currently asymptomatic. states he had sudden onset CP assoc with blurred vision and difficulty breathing. states it started after hearing another distressed pt whom was yelling in the hallway. states that it self resolved and has not had repeated episode. denies fever, chills, cough, N/V/C/D OBJECTIVE: Last Vital Signs Temp Pulse Resp BP Pulse Ox 98.8 F 55 L 20 162/69 99 06/19/17 15:00 06/19/17 15:00 06/19/17 15:00 06/19/17 15:00 06/19/17 09:00 General NAD CV S1 S2 irregular irregular. no murmur/rub/gallop no chest wall tenderness Lungs CTA B/L no wheezing/rales/rhonchi ASSESSMENT AND PLAN: 82yo M with PMH afib on coumadin and CKD presented to the ER with cough, dyspnea and CP 1. Acute on chronic systolic/diastolic CHF- clinically euvolemic. now on lasix po. echo done and noted. cardiology on board 2. ACS- flat trend of troponins. possible demand ischemia in setting of acute chf. Troponin peaked at 0.88. plan for stress test today. 3. afib on coumadin- Subtherapeutic INR. coumadin increased to 6mg. INR now therapeutic. on hep ggt. will cont bridge for additional day. on asa and coreg for rate control 4. HTN urgency- BP remains above goal. will increase spirolactone. monitor for improvement. on coreg and lasix and valsartan 5. Acute on CKD- likley pre-renal. at baseline 6. Hypokalemia- resolved 7. DVT ppx- hep-coumadin bridge 8. d/c planning in AM pending repeat INR and results of stress test
[2017-06-19] MEDS: HEPARIN - 25,000 UNIT in SODIUM CHLORIDE 495 ML IV SCH (17:31)
[2017-06-19] MEDS: WARFARIN NA 3 MG TABLET PO SCH (17:31)
--- NOTE | 2017-06-19 18:06 | PN ---
Progress Note, Physician Chief Complaint: Pt A&Ox3; no chest pain or dyspnea. History of Present Illness: 82 yr old man (b. [place]) with PMH of systolic CHF, CAD s/p stent x2 , A fib on Coumadin, HTN ,and possible CKD based on previous labs, presents to the ED with a chief complaint of shortness of breath, cough and 6/10 non- radiating right and left chest pain since 2 am last night. Patient admitted last week from 06/01 to 06/04 for acute on chronic CHF. 06/16/17 08:20 - Current Medication List Current Medications: Active Medications Aspirin (Asa -) 81 mg PO DAILY [facility] Last Admin: 06/19/17 09:51 Dose: 81 mg Atorvastatin Calcium (Lipitor -) 40 mg PO HS [facility] Last Admin: 06/18/17 21:34 Dose: 40 mg Carvedilol (Coreg -) 6.25 mg PO BID [facility] Last Admin: 06/19/17 10:47 Dose: Not Given Furosemide (Lasix -) 40 mg PO BID@0600,1400 [facility] Last Admin: 06/19/17 16:50 Dose: 40 mg Heparin Sodium (Porcine) 25, (000 unit/ Sodium Chloride) 500 mls @ 20 mls/hr IV TITR TORIN; 1,000 UNIT/HR PRN Reason: Protocol Last Admin: 06/19/17 17:31 Dose: 900 unit/hr, 18 mls/hr Magnesium Oxide (Mag-Ox -) 400 mg PO BID [facility] Stop: 06/19/17 23:59 Last Admin: 06/19/17 09:52 Dose: 400 mg Spironolactone (Aldactone -) 50 mg PO DAILY [facility] Valsartan (Diovan -) 160 mg PO BID [facility] Last Admin: 06/19/17 09:51 Dose: 160 mg Warfarin Sodium (Coumadin -) 6 mg PO DAILY@1800 [facility] Last Admin: 06/19/17 17:31 Dose: 6 mg - Objective Vital Signs: Vital Signs Temperature 98.8 F 06/19/17 15:00 Pulse Rate 55 L 06/19/17 15:00 Respiratory Rate 20 06/19/17 15:00 Blood Pressure 162/69 06/19/17 15:00 O2 Sat by Pulse Oximetry (%) 99 06/19/17 09:00 Constitutional: Yes: No Distress Eyes: Yes: WNL HENT: Yes: WNL Neck: Yes: WNL Cardiovascular: Yes: Regular Rate and Rhythm Respiratory: Yes: WNL Gastrointestinal: Yes: WNL ...Rectal Exam: Yes: Deferred Genitourinary: No: Anuria Musculoskeletal: Yes: WNL Extremities: Yes: WNL Edema: No Peripheral Pulses WNL: Yes Integumentary: Yes: WNL Neurological: Yes: Alert, Oriented Psychiatric: Yes: Alert, Oriented Labs: CBC, BMP 06/19/17 06:30 06/19/17 06:30 INR, PTT INR 2.26 (0.82-1.09) H D 06/19/17 11:15 Problem List - Problems (1) Acute on chronic combined systolic and diastolic CHF, NYHA class 2 Assessment/Plan: continue valsartan and carvedilol. Code(s): I50.43 - ACUTE ON CHRONIC COMBINED SYSTOLIC AND DIASTOLIC HRT FAIL (2) Atrial fibrillation with controlled ventricular response Assessment/Plan: on Coreg. Restart warfarin (or NOAC) post-coronary angiogram. Code(s): I48.91 - UNSPECIFIED ATRIAL FIBRILLATION (3) Coronary artery disease Assessment/Plan: Stress MIBI: cannot r/o multivessel CAD. Pt for coronary angiogram once INR is reduced (hold warfarin). Code(s): I25.10 - ATHSCL HEART DISEASE OF [place] CORONARY ARTERY W/O ANG PCTRS Qualifiers: Coronary Disease-Associated Artery/Lesion type: [place] artery [place] vs. transplanted heart: [place] heart Associated angina: with stable angina Qualified Code(s): I25.118 - Atherosclerotic heart disease of [place] coronary artery with other forms of angina pectoris (4) Elevated troponin Code(s): R74.8 - ABNORMAL LEVELS OF OTHER SERUM ENZYMES (5) Chronic kidney disease (CKD) Code(s): N18.9 - CHRONIC KIDNEY DISEASE, UNSPECIFIED Qualifiers: Chronic kidney disease stage: stage 3 (moderate) Qualified Code(s): N18.3 - Chronic kidney disease, stage 3 (moderate) (6) S/P coronary artery stent placement Assessment/Plan: Stress Persantine MIBI 06/19/2017: evidence of possible multi-vessel CAD, with reduced LVEF. Will hold warfarin (restart IV heparin if INR < 2) in anticipation of coronary angiogram (discussed with pt, who agrees). Plan for angiogram on (INR should be 1-1.4). Continue ASA 81 mg daiy. Continue statin. Low-dose carvedilol (periods of AF with slow ventricular rate and AF with RVR); F/u BP and HR. Code(s): Z95.5 - PRESENCE OF CORONARY ANGIOPLASTY IMPLANT AND GRAFT
[2017-06-19] MEDS: CARVEDILOL 3.125 MG TABLET (FP) PO SCH (19:48)
[2017-06-19] MEDS: ATORVASTATIN CA 40 MG TABLET (FP) PO SCH (21:50)
[2017-06-20] MEDS: CARVEDILOL 3.125 MG TABLET (FP) PO SCH ×3 (06:49→21:07)
[2017-06-20] MEDS: amLODIPine BESYLATE 2.5 MG TABLET (FP) PO SCH (06:49)
[2017-06-20] MEDS: FUROSEMIDE 40 MG TABLET (FP) PO SCH ×2 (06:49→13:41)
[2017-06-20 07:15] LABS: MCH 27.7 pg (25.7-33.7); MCHC 32.6 g/dl (32.0-35.9); MEAN CELL VOLUME 84.9 fl (80-96); PLATELET COUNT 142 K/MM3 (134-434); RDW 15.4 % (11.9-15.9); WHITE BLOOD COUNT 4.7 K/mm3 (4.0-10.0)
[2017-06-20 08:20] LABS: INR 2.96 (0.82-1.09); PROTHROMBIN TIME (PATIENT) 33.4 SEC (9.98-11.88)
[2017-06-20] MEDS: ASPIRIN 81 MG CHEWABLE TABLETS PO SCH (09:42)
[2017-06-20] MEDS: SPIRONOLACTONE 25 MG TABLET (FP) PO SCH (09:42)
[2017-06-20] MEDS: VALSARTAN 160 MG TABLET (UD) PO SCH ×2 (09:43→21:07)
--- NOTE | 2017-06-20 11:14 | PN ---
Progress Note, Physician History of Present Illness: pulmonary alert,feeling better,-cp,sob,-cough - Current Medication List Current Medications: Active Medications Amlodipine Besylate (Norvasc -) 2.5 mg PO DAILY [facility] Last Admin: 06/20/17 06:49 Dose: 2.5 mg Aspirin (Asa -) 81 mg PO DAILY [facility] Last Admin: 06/20/17 09:42 Dose: 81 mg Atorvastatin Calcium (Lipitor -) 40 mg PO HS [facility] Last Admin: 06/19/17 21:50 Dose: 40 mg Carvedilol (Coreg -) 3.125 mg PO BID [facility] Last Admin: 06/20/17 09:45 Dose: 3.125 mg Furosemide (Lasix -) 40 mg PO BID@0600,1400 [facility] Last Admin: 06/20/17 06:49 Dose: 40 mg Spironolactone (Aldactone -) 50 mg PO DAILY [facility] Last Admin: 06/20/17 09:42 Dose: 50 mg Valsartan (Diovan -) 160 mg PO BID [facility] Last Admin: 06/20/17 09:43 Dose: 160 mg - Objective Vital Signs: Vital Signs Temperature 98.0 F 06/20/17 05:58 Pulse Rate 58 L 06/20/17 05:58 Respiratory Rate 20 06/20/17 09:00 Blood Pressure 182/94 06/20/17 05:58 O2 Sat by Pulse Oximetry (%) 98 06/20/17 09:00 Constitutional: Yes: Well Nourished, Calm Eyes: Yes: WNL HENT: Yes: WNL Neck: Yes: WNL Cardiovascular: Yes: Pulse Irregular, S1, S2 Respiratory: Yes: CTA Bilaterally Gastrointestinal: Yes: Normal Bowel Sounds, Soft Extremities: Yes: WNL Edema: No Labs: CBC, BMP 06/20/17 05:05 INR, PTT INR 2.96 (0.82-1.09) H D 06/20/17 07:00 Assessment/Plan Problem List - Problems (1) Acute on chronic diastolic CHF (congestive heart failure) Code(s): I50.33 - ACUTE ON CHRONIC DIASTOLIC (CONGESTIVE) HEART FAILURE (2) Atrial fibrillation with controlled ventricular response Code(s): I48.91 - UNSPECIFIED ATRIAL FIBRILLATION (3) Coronary artery disease Code(s): I25.10 - ATHSCL HEART DISEASE OF [place] CORONARY ARTERY W/O ANG PCTRS Qualifiers: Coronary Disease-Associated Artery/Lesion type: [place] artery [place] vs. transplanted heart: [place] heart Associated angina: with stable angina Qualified Code(s): I25.118 - Atherosclerotic heart disease of [place] coronary artery with other forms of angina pectoris (4) Hypertensive cardiomyopathy Code(s): I11.9 - HYPERTENSIVE HEART DISEASE WITHOUT HEART FAILURE; I42.9 - CARDIOMYOPATHY, UNSPECIFIED Qualifiers: Heart failure presence: with heart failure Qualified Code(s): I11.0 - Hypertensive heart disease with heart failure (5) Chronic kidney disease (CKD) Code(s): N18.9 - CHRONIC KIDNEY DISEASE, UNSPECIFIED Qualifiers: Chronic kidney disease stage: stage 3 (moderate) Qualified Code(s): N18.3 - Chronic kidney disease, stage 3 (moderate) (6) Pulmonary hypertension Code(s): I27.2 - OTHER SECONDARY PULMONARY HYPERTENSION * DO NOT USE * (7) S/P coronary artery stent placement Code(s): Z95.5 - PRESENCE OF CORONARY ANGIOPLASTY IMPLANT AND GRAFT (8) Tricuspid regurgitation Code(s): I07.1 - RHEUMATIC TRICUSPID INSUFFICIENCY 9 PULMONARY HTN Assessment/Plan O2 as needed Can repeat imaging as an outpatient to document stability/improvement Coumadin Lasix Aldactone Dr [place] Problem List - Problems (1) Acute on chronic diastolic CHF (congestive heart failure) Code(s): I50.33 - ACUTE ON CHRONIC DIASTOLIC (CONGESTIVE) HEART FAILURE (2) Atrial fibrillation with controlled ventricular response Code(s): I48.91 - UNSPECIFIED ATRIAL FIBRILLATION (3) Coronary artery disease Code(s): I25.10 - ATHSCL HEART DISEASE OF [place] CORONARY ARTERY W/O ANG PCTRS Qualifiers: Coronary Disease-Associated Artery/Lesion type: [place] artery [place] vs. transplanted heart: [place] heart Associated angina: with stable angina Qualified Code(s): I25.118 - Atherosclerotic heart disease of [place] coronary artery with other forms of angina pectoris (4) Hypertensive cardiomyopathy Code(s): I11.9 - HYPERTENSIVE HEART DISEASE WITHOUT HEART FAILURE; I42.9 - CARDIOMYOPATHY, UNSPECIFIED Qualifiers: Heart failure presence: with heart failure Qualified Code(s): I11.0 - Hypertensive heart disease with heart failure (5) Chronic kidney disease (CKD) Code(s): N18.9 - CHRONIC KIDNEY DISEASE, UNSPECIFIED Qualifiers: Chronic kidney disease stage: stage 3 (moderate) Qualified Code(s): N18.3 - Chronic kidney disease, stage 3 (moderate) (6) Pulmonary hypertension Code(s): I27.2 - OTHER SECONDARY PULMONARY HYPERTENSION * DO NOT USE * (7) S/P coronary artery stent placement Code(s): Z95.5 - PRESENCE OF CORONARY ANGIOPLASTY IMPLANT AND GRAFT (8) Tricuspid regurgitation Code(s): I07.1 - RHEUMATIC TRICUSPID INSUFFICIENCY
--- NOTE | 2017-06-20 13:01 | PN ---
Teaching Attending Note Name of Resident: Aamir Garcia ATTENDING PHYSICIAN STATEMENT I saw and evaluated the patient. I reviewed the resident's note and discussed the case with the resident. I agree with the resident's findings and plan as documented. SUBJECTIVE:asymptomatic. no recurrent episodes of CP. Denies cough, fever, chills, SOB, N/V/C/D OBJECTIVE: Last Vital Signs Temp Pulse Resp BP Pulse Ox 97.8 F 60 20 134/71 98 06/20/17 11:12 06/20/17 11:12 06/20/17 11:12 06/20/17 11:12 06/20/17 09:00 General NAD CV S1 S2 irregular irregular. no murmur/rub/gallop no chest wall tenderness Lungs CTA B/L no wheezing/rales/rhonchi ASSESSMENT AND PLAN: 82yo M with PMH afib on coumadin and CKD presented to the ER with cough, dyspnea and CP 1. Acute on chronic systolic/diastolic CHF- clinically euvolemic. now on lasix po. echo done and noted. cardiology on board 2. ACS- flat trend of troponins. +NMST. plan for cardiac cath awaiting decrease in INR. 3. afib on coumadin- was on hep-coumadin bridge. INR now therapeutic however now plan for cardiac cath. Goal INR 1-1.4. will hold couamdin. received last dose 06/19. on asa and coreg for rate control 4. HTN urgency- now improved. spirolactone increased and started on low dose norvasc. coreg was also decreased. will cont for now. on coreg and lasix and valsartan 5. Acute on CKD- [place] pre-renal. at baseline 6. Hypokalemia- resolved 7. DVT ppx- INR therapeutic 8. plan for transfer to [facility] for cardiac cath. awaiting INR level to trend down.
--- NOTE | 2017-06-20 13:32 | PN ---
Progress Note, Physician History of Present Illness: 82M PMH of systolic CHF CAD s/p stent x2 A fib on Coumadin HTN and possible CKD based on previous labs presents to the ED with a chief complaint of shortness of breath, cough and 6/10 non-radiating right and left chest pain since 2 am last night. Patient admitted last week from 06/01 to 06/04 for acute on chronic CHF. 06/16/17 08:20 - Current Medication List Current Medications: Active Medications Amlodipine Besylate (Norvasc -) 2.5 mg PO DAILY [facility] Last Admin: 06/20/17 06:49 Dose: 2.5 mg Aspirin (Asa -) 81 mg PO DAILY [facility] Last Admin: 06/20/17 09:42 Dose: 81 mg Atorvastatin Calcium (Lipitor -) 40 mg PO HS [facility] Last Admin: 06/19/17 21:50 Dose: 40 mg Carvedilol (Coreg -) 3.125 mg PO BID [facility] Last Admin: 06/20/17 09:45 Dose: 3.125 mg Furosemide (Lasix -) 40 mg PO BID@0600,1400 [facility] Last Admin: 06/20/17 06:49 Dose: 40 mg Spironolactone (Aldactone -) 50 mg PO DAILY [facility] Last Admin: 06/20/17 09:42 Dose: 50 mg Valsartan (Diovan -) 160 mg PO BID [facility] Last Admin: 06/20/17 09:43 Dose: 160 mg - Objective Vital Signs: Vital Signs Temperature 97.8 F 06/20/17 11:12 Pulse Rate 60 06/20/17 11:12 Respiratory Rate 20 06/20/17 11:12 Blood Pressure 134/71 06/20/17 11:12 O2 Sat by Pulse Oximetry (%) 98 06/20/17 09:00 Eyes: Yes: WNL, Conjunctiva Clear, EOM Intact HENT: Yes: WNL, Atraumatic, Normocephalic Neck: Yes: WNL, Supple, Trachea Midline Cardiovascular: Yes: WNL, Regular Rate and Rhythm Respiratory: Yes: WNL, Regular, CTA Bilaterally Gastrointestinal: Yes: WNL, Normal Bowel Sounds Genitourinary: Yes: WNL Musculoskeletal: Yes: WNL Extremities: Yes: WNL Edema: No Integumentary: Yes: WNL Neurological: Yes: WNL, Alert, Oriented ...Motor Strength: WNL Psychiatric: Yes: WNL Labs: CBC, BMP 06/20/17 05:05 06/19/17 06:30 INR, PTT INR 2.96 (0.82-1.09) H D 06/20/17 07:00 Problem List - Problems (1) Acute on chronic diastolic CHF (congestive heart failure) Code(s): I50.33 - ACUTE ON CHRONIC DIASTOLIC (CONGESTIVE) HEART FAILURE (2) Atrial fibrillation with controlled ventricular response Code(s): I48.91 - UNSPECIFIED ATRIAL FIBRILLATION (3) CHF (congestive heart failure) Code(s): I50.9 - HEART FAILURE, UNSPECIFIED Qualifiers: Congestive heart failure type: unspecified congestive heart failure type Congestive heart failure chronicity: acute on chronic Qualified Code(s): I50.9 - Heart failure, unspecified (4) Coronary artery disease Code(s): I25.10 - ATHSCL HEART DISEASE OF [place] CORONARY ARTERY W/O ANG PCTRS Qualifiers: Coronary Disease-Associated Artery/Lesion type: [place] artery [place] vs. transplanted heart: [place] heart Associated angina: with stable angina Qualified Code(s): I25.118 - Atherosclerotic heart disease of [place] coronary artery with other forms of angina pectoris (5) Elevated troponin Code(s): R74.8 - ABNORMAL LEVELS OF OTHER SERUM ENZYMES (6) Hypertensive cardiomyopathy Code(s): I11.9 - HYPERTENSIVE HEART DISEASE WITHOUT HEART FAILURE; I42.9 - CARDIOMYOPATHY, UNSPECIFIED Qualifiers: Heart failure presence: with heart failure Qualified Code(s): I11.0 - Hypertensive heart disease with heart failure (7) Hypokalemia Code(s): E87.6 - HYPOKALEMIA (8) Subendocardial ischemia Code(s): I24.8 - OTHER FORMS OF ACUTE ISCHEMIC HEART DISEASE (9) Chronic kidney disease (CKD) Code(s): N18.9 - CHRONIC KIDNEY DISEASE, UNSPECIFIED Qualifiers: Chronic kidney disease stage: stage 3 (moderate) Qualified Code(s): N18.3 - Chronic kidney disease, stage 3 (moderate) (10) Pulmonary hypertension Code(s): I27.2 - OTHER SECONDARY PULMONARY HYPERTENSION * DO NOT USE * (11) S/P coronary artery stent placement Code(s): Z95.5 - PRESENCE OF CORONARY ANGIOPLASTY IMPLANT AND GRAFT (12) Tricuspid regurgitation Code(s): I07.1 - RHEUMATIC TRICUSPID INSUFFICIENCY (13) Acute kidney injury Code(s): N17.9 - ACUTE KIDNEY FAILURE, UNSPECIFIED Assessment/Plan IMP: Acute on chronic systolic CHF CAD s/p PCI 2007 CKD Moderate chronic PHTN Permanent AF on coumadin non-stemi positive MIBI ST REC: change IV Lasix to PO -off coumadin awaiting c. cath when INR normalize
--- NOTE | 2017-06-20 14:49 | PN ---
Physical Exam: SUBJECTIVE: Patient seen and examined at bedside. No interval change. Denies chest pain, shortness of breath, nausea, vomiting. OBJECTIVE: Vital Signs Period Temp Pulse Resp BP Sys/Ayala Pulse Ox Last 24 Hr 97.5 F-98.8 F 55-72 20-20 134-182/69-115 98-98 GENERAL: The patient is awake, alert, and fully oriented, in no acute distress. HEAD: Normal with no signs of trauma. EYES: PERRL, extraocular movements intact, sclera anicteric, conjunctiva clear. No ptosis. ENT: Ears normal, nares patent, oropharynx clear without exudates, moist mucous membranes. NECK: Trachea midline, full range of motion, supple. LUNGS: Breath sounds equal, clear to auscultation bilaterally, no wheezes, no crackles, no accessory muscle use. HEART: irregularly irregular rhythm, bradycardic, S1, S2 without murmur, rub or gallop. ABDOMEN: Soft, nontender, nondistended, normoactive bowel sounds, no guarding, no rebound, no hepatosplenomegaly, no masses. EXTREMITIES: 2+ pulses, warm, well-perfused, no edema. NEUROLOGICAL: Cranial nerves II through XII grossly intact. Normal speech, gait not observed. PSYCH: Normal mood, normal affect. SKIN: Warm, dry, normal turgor, no rashes or lesions noted Laboratory Results - last 24 hr 06/19/17 06/20/17 06/20/17 14:00 05:05 05:05 WBC 4.7 RBC 4.74 Hgb 13.1 Hct 40.2 MCV 84.9 MCH 27.7 MCHC 32.6 RDW 15.4 Plt Count 142 MPV 9.0 PT with INR INR PTT (Actin FS) 33.1 D Troponin I 0.69 H* 06/20/17 07:00 WBC RBC Hgb Hct MCV MCH MCHC RDW Plt Count MPV PT with INR 33.40 H INR 2.96 H D PTT (Actin FS) Troponin I Active Medications Generic Name Dose Route Start Last Admin Trade Name Freq PRN Reason Stop Dose Admin Amlodipine Besylate 2.5 mg 06/20/17 06:45 06/20/17 06:49 Norvasc - PO 2.5 mg DAILY [facility] Administration Aspirin 81 mg 06/17/17 10:00 06/20/17 09:42 Asa - PO 81 mg DAILY [facility] Administration Atorvastatin Calcium 40 mg 06/16/17 22:00 06/19/17 21:50 Lipitor - PO 40 mg HS [facility] Administration Carvedilol 3.125 mg 06/19/17 18:45 06/20/17 09:45 Coreg - PO 3.125 mg BID [facility] Administration Furosemide 40 mg 06/19/17 06:00 06/20/17 13:41 Lasix - PO 40 mg BID@0600,1400 [facility] Administration Spironolactone 50 mg 06/20/17 10:00 06/20/17 09:42 Aldactone - PO 50 mg DAILY [facility] Administration Valsartan 160 mg 06/16/17 22:00 06/20/17 09:43 Diovan - PO 160 mg BID [facility] Administration ASSESSMENT/PLAN: 82 year old male with a past medical history of CAD s/p stent, afib on coumadin , CKD and CHF, admitted to the hospital for the treatment of CHF exacerbation #CHF Exacerbation: improving -continue lasix to 40mg PO BID -daily weights -strict I's/O's -continue spironolactone 50mg PO QD -off heparin drip #Acute chest pain: r/o ACS, no current symptoms -repeat troponin 0.69, EKG shows new T wave inversion -continue aspirin -continue statin -stress test revealed extensive multivessel disease -patient will be transferred likely tomorrow for cardiac cath #Atrial fibrillation: patient is on coumadin 4mg at home but was found to be subtherapeutic, suggestive of noncompliance -patient's INR 2.26 -continue coumadin 6mg PO -continue heparin drip bridge to coumadin per cardiology reccs #Hypertension: controlled -reduced carvedilol 6.25 PO BID -continue home valsartan 160mg PO BID -increase spironolactone to 50mg PO QD #Chronic Kidney Disease: patient's creatinine stable at 1.7 -could be causing his troponinemia #FEN -Sodium controlled diet -replete electrolytes as needed -no standing fluids #Prophylaxis -pt is on coumadin #Disposition: Continue to monitor on telemetry, DC planning tomorrow for cardiac cath full code Visit type - Emergency Visit Emergency Visit: No - New Patient This patient is new to me today: No - Critical Care Critical Care patient: No
[2017-06-20] MEDS: ATORVASTATIN CA 40 MG TABLET (FP) PO SCH (21:07)
[2017-06-21] MEDS: FUROSEMIDE 40 MG TABLET (FP) PO SCH ×2 (06:43→13:21)
[2017-06-21 07:10] LABS: MCH 27.8 pg (25.7-33.7); MCHC 32.5 g/dl (32.0-35.9); MEAN CELL VOLUME 85.5 fl (80-96); MEAN PLT VOLUME 9.6 fl (7.5-11.1); PLATELET COUNT 154 K/MM3 (134-434); RDW 15.6 % (11.9-15.9)
[2017-06-21 08:34] LABS: INR 3.16 (0.82-1.09); PROTHROMBIN TIME (PATIENT) 35.7 SEC (9.98-11.88)
[2017-06-21] MEDS: CARVEDILOL 3.125 MG TABLET (FP) PO SCH ×2 (09:22→21:30)
[2017-06-21] MEDS: ASPIRIN 81 MG CHEWABLE TABLETS PO SCH (09:22)
[2017-06-21] MEDS: VALSARTAN 160 MG TABLET (UD) PO SCH ×2 (09:22→21:30)
[2017-06-21] MEDS: SPIRONOLACTONE 25 MG TABLET (FP) PO SCH (09:22)
[2017-06-21] MEDS: amLODIPine BESYLATE 2.5 MG TABLET (FP) PO SCH (09:32)
--- NOTE | 2017-06-21 10:54 | PN ---
Progress Note, Physician History of Present Illness: PULMONARY ALERT,NAD,-SOB,-CP - Current Medication List Current Medications: Active Medications Amlodipine Besylate (Norvasc -) 2.5 mg PO DAILY [facility] Last Admin: 06/21/17 09:32 Dose: 2.5 mg Aspirin (Asa -) 81 mg PO DAILY [facility] Last Admin: 06/21/17 09:22 Dose: 81 mg Atorvastatin Calcium (Lipitor -) 40 mg PO HS [facility] Last Admin: 06/20/17 21:07 Dose: 40 mg Carvedilol (Coreg -) 3.125 mg PO BID [facility] Last Admin: 06/21/17 09:22 Dose: 3.125 mg Furosemide (Lasix -) 40 mg PO BID@0600,1400 [facility] Last Admin: 06/21/17 06:43 Dose: 40 mg Spironolactone (Aldactone -) 50 mg PO DAILY [facility] Last Admin: 06/21/17 09:22 Dose: 50 mg Valsartan (Diovan -) 160 mg PO BID [facility] Last Admin: 06/21/17 09:22 Dose: 160 mg - Objective Vital Signs: Vital Signs Temperature 97.2 F L 06/21/17 10:00 Pulse Rate 63 06/21/17 10:00 Respiratory Rate 18 06/21/17 10:00 Blood Pressure 148/78 06/21/17 10:00 O2 Sat by Pulse Oximetry (%) 100 06/21/17 09:00 Constitutional: Yes: Well Nourished, Calm Eyes: Yes: WNL HENT: Yes: WNL Neck: Yes: WNL Cardiovascular: Yes: Pulse Irregular, S1, S2 Respiratory: Yes: CTA Bilaterally Gastrointestinal: Yes: WNL Extremities: Yes: WNL Edema: No Labs: CBC, BMP 06/21/17 05:05 INR 3.16 (0.82-1.09) H 06/21/17 05:05 Assessment/Plan Problem List - Problems (1) Acute on chronic diastolic CHF (congestive heart failure) IMPROVING Code(s): I50.33 - ACUTE ON CHRONIC DIASTOLIC (CONGESTIVE) HEART FAILURE (2) Atrial fibrillation with controlled ventricular response Code(s): I48.91 - UNSPECIFIED ATRIAL FIBRILLATION (3) Coronary artery disease Code(s): I25.10 - ATHSCL HEART DISEASE OF [place] CORONARY ARTERY W/O ANG PCTRS Qualifiers: Coronary Disease-Associated Artery/Lesion type: [place] artery [place] vs. transplanted heart: [place] heart Associated angina: with stable angina Qualified Code(s): I25.118 - Atherosclerotic heart disease of [place] coronary artery with other forms of angina pectoris (4) Hypertensive cardiomyopathy Code(s): I11.9 - HYPERTENSIVE HEART DISEASE WITHOUT HEART FAILURE; I42.9 - CARDIOMYOPATHY, UNSPECIFIED Qualifiers: Heart failure presence: with heart failure Qualified Code(s): I11.0 - Hypertensive heart disease with heart failure (5) Chronic kidney disease (CKD) Code(s): N18.9 - CHRONIC KIDNEY DISEASE, UNSPECIFIED Qualifiers: Chronic kidney disease stage: stage 3 (moderate) Qualified Code(s): N18.3 - Chronic kidney disease, stage 3 (moderate) (6) Pulmonary hypertension Code(s): I27.2 - OTHER SECONDARY PULMONARY HYPERTENSION * DO NOT USE * (7) S/P coronary artery stent placement Code(s): Z95.5 - PRESENCE OF CORONARY ANGIOPLASTY IMPLANT AND GRAFT (8) Tricuspid regurgitation Code(s): I07.1 - RHEUMATIC TRICUSPID INSUFFICIENCY 9 PULMONARY HTN Assessment/Plan O2 as needed Can repeat imaging as an outpatient to document stability/improvement Coumadin Lasix Aldactone Dr [place] Problem List - Problems (1) Acute on chronic diastolic CHF (congestive heart failure) Code(s): I50.33 - ACUTE ON CHRONIC DIASTOLIC (CONGESTIVE) HEART FAILURE (2) Atrial fibrillation with controlled ventricular response Code(s): I48.91 - UNSPECIFIED ATRIAL FIBRILLATION (3) Coronary artery disease Code(s): I25.10 - ATHSCL HEART DISEASE OF [place] CORONARY ARTERY W/O ANG PCTRS Qualifiers: Coronary Disease-Associated Artery/Lesion type: [place] artery [place] vs. transplanted heart: [place] heart Associated angina: with stable angina Qualified Code(s): I25.118 - Atherosclerotic heart disease of [place] coronary artery with other forms of angina pectoris (4) Hypertensive cardiomyopathy Code(s): I11.9 - HYPERTENSIVE HEART DISEASE WITHOUT HEART FAILURE; I42.9 - CARDIOMYOPATHY, UNSPECIFIED Qualifiers: Heart failure presence: with heart failure Qualified Code(s): I11.0 - Hypertensive heart disease with heart failure (5) Chronic kidney disease (CKD) Code(s): N18.9 - CHRONIC KIDNEY DISEASE, UNSPECIFIED Qualifiers: Chronic kidney disease stage: stage 3 (moderate) Qualified Code(s): N18.3 - Chronic kidney disease, stage 3 (moderate) (6) Pulmonary hypertension Code(s): I27.2 - OTHER SECONDARY PULMONARY HYPERTENSION * DO NOT USE * (7) S/P coronary artery stent placement Code(s): Z95.5 - PRESENCE OF CORONARY ANGIOPLASTY IMPLANT AND GRAFT (8) Tricuspid regurgitation Code(s): I07.1 - RHEUMATIC TRICUSPID INSUFFICIENCY
[2017-06-21] MEDS ORDERED: PHYTONADIONE 10 MG/1 ML AMP IVPB ONE (11:33)
--- NOTE | 2017-06-21 11:38 | PN ---
Progress Note, Physician Chief Complaint: Pt A&Ox3; OOB and ambulatory; no chest pain or dyspnea. History of Present Illness: 82 yr old man (b. [place]) with PMH of systolic CHF CAD s/p stent x2 A fib on Coumadin HTN and possible CKD based on previous labs presents to the ED with a chief complaint of shortness of breath, cough and 6/10 non-radiating right and left chest pain since 2 am last night. Patient admitted last week from 06/01 to 06/04 for acute on chronic CHF. 06/16/17 08:20 - Current Medication List Current Medications: Active Medications Amlodipine Besylate (Norvasc -) 2.5 mg PO DAILY [facility] Last Admin: 06/21/17 09:32 Dose: 2.5 mg Aspirin (Asa -) 81 mg PO DAILY [facility] Last Admin: 06/21/17 09:22 Dose: 81 mg Atorvastatin Calcium (Lipitor -) 40 mg PO HS [facility] Last Admin: 06/20/17 21:07 Dose: 40 mg Carvedilol (Coreg -) 3.125 mg PO BID [facility] Last Admin: 06/21/17 09:22 Dose: 3.125 mg Furosemide (Lasix -) 40 mg PO BID@0600,1400 [facility] Last Admin: 06/21/17 06:43 Dose: 40 mg Spironolactone (Aldactone -) 50 mg PO DAILY [facility] Last Admin: 06/21/17 09:22 Dose: 50 mg Valsartan (Diovan -) 160 mg PO BID [facility] Last Admin: 06/21/17 09:22 Dose: 160 mg - Objective Vital Signs: Vital Signs Temperature 97.2 F L 06/21/17 10:00 Pulse Rate 63 06/21/17 10:00 Respiratory Rate 18 06/21/17 10:00 Blood Pressure 148/78 06/21/17 10:00 O2 Sat by Pulse Oximetry (%) 100 06/21/17 09:00 Constitutional: Yes: Calm Eyes: Yes: WNL HENT: Yes: WNL Neck: Yes: WNL Respiratory: Yes: Regular Gastrointestinal: Yes: Soft ...Rectal Exam: Yes: Deferred Genitourinary: No: Anuria Musculoskeletal: Yes: Muscle Weakness Extremities: Yes: WNL Edema: No Peripheral Pulses WNL: Yes Integumentary: Yes: WNL Neurological: Yes: WNL Psychiatric: Yes: WNL Labs: CBC, BMP 06/21/17 05:05 06/19/17 06:30 INR, PTT INR 3.16 (0.82-1.09) H 06/21/17 05:05 Problem List - Problems (1) Acute on chronic combined systolic and diastolic CHF, NYHA class 2 Code(s): I50.43 - ACUTE ON CHRONIC COMBINED SYSTOLIC AND DIASTOLIC HRT FAIL (2) Atrial fibrillation with controlled ventricular response Code(s): I48.91 - UNSPECIFIED ATRIAL FIBRILLATION (3) Coronary artery disease Assessment/Plan: Plan for vitamin K (q mg IVPB); f/u INR. Coronary angiogram when INR <1.5. Code(s): I25.10 - ATHSCL HEART DISEASE OF [place] CORONARY ARTERY W/O ANG PCTRS Qualifiers: Coronary Disease-Associated Artery/Lesion type: [place] artery [place] vs. transplanted heart: [place] heart Associated angina: with stable angina Qualified Code(s): I25.118 - Atherosclerotic heart disease of [place] coronary artery with other forms of angina pectoris (4) Elevated troponin Code(s): R74.8 - ABNORMAL LEVELS OF OTHER SERUM ENZYMES (5) Chronic kidney disease (CKD) Code(s): N18.9 - CHRONIC KIDNEY DISEASE, UNSPECIFIED Qualifiers: Chronic kidney disease stage: stage 3 (moderate) Qualified Code(s): N18.3 - Chronic kidney disease, stage 3 (moderate) (6) S/P coronary artery stent placement Assessment/Plan: Stress Persantine MIBI 06/19/2017: evidence of possible multi-vessel CAD, with reduced LVEF. Will hold warfarin (restart IV heparin if INR < 2) in anticipation of coronary angiogram (discussed with pt, who agrees). Plan for angiogram on (INR should be 1-1.4). Continue ASA 81 mg daiy. Continue statin. Low-dose carvedilol (periods of AF with slow ventricular rate and AF with RVR); F/u BP and HR. Code(s): Z95.5 - PRESENCE OF CORONARY ANGIOPLASTY IMPLANT AND GRAFT
--- NOTE | 2017-06-21 15:10 | PN ---
Teaching Attending Note Name of Resident: Aamir Garcia ATTENDING PHYSICIAN STATEMENT I saw and evaluated the patient. I reviewed the resident's note and discussed the case with the resident. I agree with the resident's findings and plan as documented. SUBJECTIVE:asymptomatic. no repeats episodes of CP. denies CP, SOB, fever, chills, N/V/C/D or signs of bleeding OBJECTIVE: Last Vital Signs Temp Pulse Resp BP Pulse Ox 97.9 F 58 L 18 126/65 100 06/21/17 14:21 06/21/17 14:21 06/21/17 14:21 06/21/17 14:21 06/21/17 09:00 General NAD CV S1 S2 irregular irregular. no murmur/rub/gallop no chest wall tenderness Lungs CTA B/L no wheezing/rales/rhonchi ASSESSMENT AND PLAN: 82yo M with PMH afib on coumadin and CKD presented to the ER with cough, dyspnea and CP 1. Acute on chronic systolic/diastolic CHF- clinically euvolemic. now on lasix po. echo done and noted. cardiology on board 2. ACS- flat trend of troponins. +NMST. plan for cardiac cath awaiting decrease in INR. 3. afib on coumadin- was on hep-coumadin bridge. INR continuing to trend up. no signs of bleeding. will give Vitamin K. trend INR. received last dose 06/19. on asa and coreg for rate control 4. HTN urgency- now improved. cont current management.On coreg, spirolactone, lasix and valsartan 5. Acute on CKD- likley pre-renal. at baseline 6. Hypokalemia- resolved 7. DVT ppx- INR therapeutic 8. plan for transfer to [place] for cardiac cath. awaiting INR level to trend down.
--- NOTE | 2017-06-21 18:11 | PN ---
Physical Exam: SUBJECTIVE: Patient seen and examined at bedside. No interval change since yesterday. OBJECTIVE: Vital Signs Period Temp Pulse Resp BP Sys/Ayala Pulse Ox Last 24 Hr 97.2 F-98.9 F 56-72 18-20 126-182/65-96 100-100 GENERAL: The patient is awake, alert, and fully oriented, in no acute distress. HEAD: Normal with no signs of trauma. EYES: PERRL, extraocular movements intact, sclera anicteric, conjunctiva clear. No ptosis. ENT: Ears normal, nares patent, oropharynx clear without exudates, moist mucous membranes. NECK: Trachea midline, full range of motion, supple. LUNGS: Breath sounds equal, clear to auscultation bilaterally, no wheezes, no crackles, no accessory muscle use. HEART: Regular rate and rhythm, S1, S2 without murmur, rub or gallop. ABDOMEN: Soft, nontender, nondistended, normoactive bowel sounds, no guarding, no rebound, no hepatosplenomegaly, no masses. EXTREMITIES: 2+ pulses, warm, well-perfused, no edema. NEUROLOGICAL: Cranial nerves II through XII grossly intact. Normal speech, gait not observed. PSYCH: Normal mood, normal affect. SKIN: Warm, dry, normal turgor, no rashes or lesions noted Laboratory Results - last 24 hr 06/21/17 06/21/17 06/21/17 05:05 05:05 05:05 WBC 5.0 RBC 4.97 Hgb 13.8 Hct 42.5 MCV 85.5 MCH 27.8 MCHC 32.5 RDW 15.6 Plt Count 154 MPV 9.6 PT with INR 35.70 H INR 3.16 H PTT (Actin FS) 35.8 H Active Medications Generic Name Dose Route Start Last Admin Trade Name Freq PRN Reason Stop Dose Admin Amlodipine Besylate 2.5 mg 06/20/17 06:45 06/21/17 09:32 Norvasc - PO 2.5 mg DAILY [facility] Administration Aspirin 81 mg 06/17/17 10:00 06/21/17 09:22 Asa - PO 81 mg DAILY [facility] Administration Atorvastatin Calcium 40 mg 06/16/17 22:00 06/20/17 21:07 Lipitor - PO 40 mg HS TORIN Administration Carvedilol 3.125 mg 06/19/17 18:45 06/21/17 09:22 Coreg - PO 3.125 mg BID [facility]ORIN Administration Furosemide 40 mg 06/19/17 06:00 06/21/17 13:21 Lasix - PO 40 mg BID@0600,1400 TORIN Administration Spironolactone 50 mg 06/20/17 10:00 06/21/17 09:22 Aldactone - PO 50 mg DAILY [facility] Administration Valsartan 160 mg 06/16/17 22:00 06/21/17 09:22 Diovan - PO 160 mg BID [facility]ORIN Administration ASSESSMENT/PLAN: 82 year old male with a past medical history of CAD s/p stent, afib on coumadin , CKD and CHF, admitted to the hospital for the treatment of CHF exacerbation #CHF Exacerbation: improving -continue lasix to 40mg PO BID -daily weights -strict I's/O's -continue spironolactone 50mg PO QD -off heparin drip #Acute chest pain: r/o ACS, no current symptoms -repeat troponin 0.69, EKG shows new T wave inversion -continue aspirin -continue statin -stress test revealed extensive multivessel disease -patient will be transferred likely tomorrow for cardiac cath #Atrial fibrillation: patient is on coumadin 4mg at home but was found to be subtherapeutic, suggestive of noncompliance -patient's INR 3.1, give vitamin K 1mg PB, recheck INR midnight, if still elevated, give 0.5 vitamin K IV PB over 6 hours and recheck INR at 6am. -continue coumadin 6mg PO -continue heparin drip bridge to coumadin per cardiology reccs #Hypertension: controlled -reduced carvedilol 6.25 PO BID -continue home valsartan 160mg PO BID -increase spironolactone to 50mg PO QD #Chronic Kidney Disease: patient's creatinine stable at 1.7 -could be causing his troponinemia #FEN -Sodium controlled diet -replete electrolytes as needed -no standing fluids #Prophylaxis -pt is on coumadin #Disposition: Continue to monitor on telemetry, DC planning tomorrow for cardiac cath full code Visit type - Emergency Visit Emergency Visit: No - New Patient This patient is new to me today: No - Critical Care Critical Care patient: No
[2017-06-21] MEDS: ATORVASTATIN CA 40 MG TABLET (FP) PO SCH (21:30)
[2017-06-22 03:33] LABS: MCH 28.3 pg (25.7-33.7); MCHC 33.5 g/dl (32.0-35.9); MEAN CELL VOLUME 84.5 fl (80-96); MEAN PLT VOLUME 8.9 fl (7.5-11.1); PLATELET COUNT 142 K/MM3 (134-434); RDW 15.3 % (11.9-15.9); WHITE BLOOD COUNT 5.1 K/mm3 (4.0-10.0)
[2017-06-22 03:48] LABS: INR 1.97 (0.82-1.09); PROTHROMBIN TIME (PATIENT) 22.3 SEC (9.98-11.88)
[2017-06-22] MEDS ORDERED: WATER IVPB ONE (04:45)
[2017-06-22] MEDS ORDERED: PHYTONADIONE IVPB ONE (04:45)
[2017-06-22] MEDS ORDERED: DEXTROSE 5% IVPB ONE (04:45)
[2017-06-22 05:31] VITALS: TEMP 97.9
[2017-06-22] MEDS: FUROSEMIDE 40 MG TABLET (FP) PO SCH (06:21)
[2017-06-22 07:53] LABS: ANION GAP 8 (8-16); CALCIUM 8.3 mg/dL (8.5-10.1); CO2 25 mmol/L (21-32); CREATININE 1.9 mg/dL (0.7-1.3); GLUCOSE,RANDOM 85 mg/dL (74-106)
[2017-06-22 08:23] VITALS: BP 144/79; PULSE 67
[2017-06-22 08:26] LABS: INR 1.85 (0.82-1.09); PROTHROMBIN TIME (PATIENT) 20.9 SEC (9.98-11.88)
[2017-06-22] MEDS: VALSARTAN 160 MG TABLET (UD) PO SCH (09:30)
[2017-06-22] MEDS: SPIRONOLACTONE 25 MG TABLET (FP) PO SCH (09:30)
[2017-06-22] MEDS: amLODIPine BESYLATE 2.5 MG TABLET (FP) PO SCH (09:31)
[2017-06-22] MEDS: ASPIRIN 81 MG CHEWABLE TABLETS PO SCH (09:31)
[2017-06-22] MEDS: CARVEDILOL 3.125 MG TABLET (FP) PO SCH (09:31)
--- NOTE | 2017-06-22 09:54 | PN ---
Progress Note, Physician Chief Complaint: Pt A&Ox3; wants to undergo coronary angiogram; no chest pain or dyspnea; ambulating well; pt disoriented to place. History of Present Illness: 82 yr old man (b. [place]) with PMH of systolic CHF CAD s/p stent x2 A fib on Coumadin HTN and possible CKD based on previous labs presents to the ED with a chief complaint of shortness of breath, cough and 6/10 non-radiating right and left chest pain since 2 am last night. Patient admitted last week from 06/01 to 06/04 for acute on chronic CHF. 06/16/17 08:20 - Current Medication List Current Medications: Active Medications Amlodipine Besylate (Norvasc -) 2.5 mg PO DAILY [facility] Last Admin: 06/22/17 09:31 Dose: 2.5 mg Aspirin (Asa -) 81 mg PO DAILY [facility] Last Admin: 06/22/17 09:31 Dose: 81 mg Atorvastatin Calcium (Lipitor -) 40 mg PO HS [facility] Last Admin: 06/21/17 21:30 Dose: 40 mg Carvedilol (Coreg -) 3.125 mg PO BID [facility] Last Admin: 06/22/17 09:31 Dose: 3.125 mg Furosemide (Lasix -) 40 mg PO BID@0600,1400 [facility] Last Admin: 06/22/17 06:21 Dose: 40 mg Spironolactone (Aldactone -) 50 mg PO DAILY [facility] Last Admin: 06/22/17 09:30 Dose: 50 mg Valsartan (Diovan -) 160 mg PO BID [facility] Last Admin: 06/22/17 09:30 Dose: 160 mg - Objective Vital Signs: Vital Signs Temperature 97.9 F 06/22/17 08:18 Pulse Rate 67 06/22/17 08:18 Respiratory Rate 19 06/22/17 08:23 Blood Pressure 144/79 06/22/17 08:18 O2 Sat by Pulse Oximetry (%) 96 06/22/17 08:23 Constitutional: Yes: Anxious Eyes: Yes: WNL HENT: Yes: WNL Neck: Yes: WNL Cardiovascular: Yes: WNL Respiratory: Yes: Regular Gastrointestinal: Yes: Soft ...Rectal Exam: Yes: Deferred Genitourinary: No: Anuria Musculoskeletal: Yes: WNL Extremities: Yes: WNL Edema: No Peripheral Pulses WNL: Yes Integumentary: Yes: WNL Neurological: Yes: WNL Psychiatric: Yes: WNL Labs: CBC, BMP 06/22/17 03:00 06/22/17 06:25 INR, PTT INR 1.85 (0.82-1.09) H 06/22/17 07:50 - ....Imaging Other: Image Reviewed (telemetry: NSR; no arrhythmias) Problem List - Problems (1) Acute on chronic combined systolic and diastolic CHF, NYHA class 2 Assessment/Plan: continue valsartan and carvedilol. Code(s): I50.43 - ACUTE ON CHRONIC COMBINED SYSTOLIC AND DIASTOLIC HRT FAIL (2) Atrial fibrillation with controlled ventricular response Assessment/Plan: on Coreg. Restartr warfarin (or NOAC) post-coronary angiogram. Code(s): I48.91 - UNSPECIFIED ATRIAL FIBRILLATION (3) Coronary artery disease Assessment/Plan: Plan for vitamin K (q mg IVPB); f/u INR. Coronary angiogram when INR <1.5. Code(s): I25.10 - ATHSCL HEART DISEASE OF [place] CORONARY ARTERY W/O ANG PCTRS Qualifiers: Coronary Disease-Associated Artery/Lesion type: [place] artery [place] vs. transplanted heart: [place] heart Associated angina: with stable angina Qualified Code(s): I25.118 - Atherosclerotic heart disease of [place] coronary artery with other forms of angina pectoris (4) Elevated troponin Assessment/Plan: ELevation likely from demand ischemia, systolic CHF. Code(s): R74.8 - ABNORMAL LEVELS OF OTHER SERUM ENZYMES (5) Chronic kidney disease (CKD) Code(s): N18.9 - CHRONIC KIDNEY DISEASE, UNSPECIFIED Qualifiers: Chronic kidney disease stage: stage 3 (moderate) Qualified Code(s): N18.3 - Chronic kidney disease, stage 3 (moderate) (6) S/P coronary artery stent placement Assessment/Plan: Stress Persantine MIBI 06/19/2017: evidence of possible multi-vessel CAD, with reduced LVEF. Will hold warfarin (restart IV heparin if INR < 2) in anticipation of coronary angiogram (discussed with pt, who agrees). Plan for angiogram on (INR should be 1-1.4). Continue ASA 81 mg daiy. Continue statin. Low-dose carvedilol (periods of AF with slow ventricular rate and AF with RVR); F/u BP and HR. Restart warfarin (or NOAC) after coronary angiogram. Vitamin K aubree be given to lower INR. Discussed with pharmacist: 1 mg IVPB will be given over 60 minutes, followed by INR in 12 hours, and additional doses of Vit K as needed. Code(s): Z95.5 - PRESENCE OF CORONARY ANGIOPLASTY IMPLANT AND GRAFT
[2017-06-22] MEDS ORDERED: PHYTONADIONE 10 MG/1 ML AMP IVPB ONE (11:00)
[2017-06-22] MEDS ORDERED: DEXTROSE 5%-0.45% SALINE 1,000 ML IV SCH (11:45)
[2017-06-22 11:57] LABS: INR 1.65 (0.82-1.09); PROTHROMBIN TIME (PATIENT) 18.6 SEC (9.98-11.88)
--- NOTE | 2017-06-22 13:24 | PN ---
Teaching Attending Note Name of Resident: Aamir Garcia ATTENDING PHYSICIAN STATEMENT I saw and evaluated the patient. I reviewed the resident's note and discussed the case with the resident. I agree with the resident's findings and plan as documented. SUBJECTIVE:asymptomatic. denies CP, SOB, fever, chills, N/V/C/D OBJECTIVE: Last Vital Signs Temp Pulse Resp BP Pulse Ox 97.9 F 67 19 144/79 96 06/22/17 08:18 06/22/17 08:18 06/22/17 08:23 06/22/17 08:18 06/22/17 08:23 General NAD ASSESSMENT AND PLAN: 82yo M with PMH afib on coumadin and CKD presented to the ER with cough, dyspnea and CP 1. Acute on chronic systolic/diastolic CHF- clinically euvolemic. now on lasix po. echo done and noted. cardiology on board 2. ACS- flat trend of troponins. +NMST. plan for cardiac cath awaiting decrease in INR. 3. afib on coumadin- was on hep-coumadin bridge. INR trending down after Vit K IVPB. on asa and coreg for rate control 4. HTN urgency- now improved. cont current management.On coreg, spirolactone, lasix and valsartan 5. Acute on CKD- likley pre-renal. at baseline 6. Hypokalemia- resolved 7. DVT ppx- INR therapeutic 8. plan for transfer to [place] for cardiac cath today. plan to re-start coumadin post-procedure
--- NOTE | 2017-06-22 13:26 | DS ---
Physical Exam: SUBJECTIVE: Patient seen and examined at bedside. Patient has no acute complaints, no interval change from yesterday's exam. OBJECTIVE: Vital Signs Period Temp Pulse Resp BP Sys/Ayala Pulse Ox Last 24 Hr 97.3 F-97.9 F 58-69 18-19 126-149/65-97 96-96 PHYSICAL EXAM GENERAL: The patient is awake, alert, and fully oriented, in no acute distress. HEAD: Normal with no signs of trauma. EYES: PERRL, extraocular movements intact, sclera anicteric, conjunctiva clear. No ptosis. ENT: Ears normal, nares patent, oropharynx clear without exudates, moist mucous membranes. NECK: Trachea midline, full range of motion, supple. LUNGS: Breath sounds equal, clear to auscultation bilaterally, no wheezes, no crackles, no accessory muscle use. HEART: Regular rate and rhythm, S1, S2 without murmur, rub or gallop. ABDOMEN: Soft, nontender, nondistended, normoactive bowel sounds, no guarding, no rebound, no hepatosplenomegaly, no masses. EXTREMITIES: 2+ pulses, warm, well-perfused, no edema. NEUROLOGICAL: Cranial nerves II through XII grossly intact. Normal speech, gait not observed. PSYCH: Normal mood, normal affect. SKIN: Warm, dry, normal turgor, no rashes or lesions noted LABS Laboratory Results - last 24 hr 06/22/17 06/22/17 06/22/17 03:00 03:00 06:25 WBC 5.1 RBC 4.79 Hgb 13.6 Hct 40.5 MCV 84.5 MCH 28.3 MCHC 33.5 RDW 15.3 Plt Count 142 MPV 8.9 PT with INR 22.30 H INR 1.97 H D Sodium 139 Potassium 4.0 Chloride 106 Carbon Dioxide 25 Anion Gap 8 BUN 40 H D Creatinine 1.9 H Random Glucose 85 Calcium 8.3 L 06/22/17 06/22/17 07:50 11:18 WBC RBC Hgb Hct MCV MCH MCHC RDW Plt Count MPV PT with INR 20.90 H 18.60 H INR 1.85 H 1.65 H Sodium Potassium Chloride Carbon Dioxide Anion Gap BUN Creatinine Random Glucose Calcium HOSPITAL COURSE: Date of Admission:06/16/17 82 year old [place] speaking male with a past medical history of congestive heart failure, permanent atrial fibrillation on coumadin, presented to the hospital with persistent cough, shortness of breath and a dull, tight, mid/ anterior non radiating 6/10 chest pain that is worse with exertion. Patient additionally reports leg swelling intermittently over the past 2 weeks. He was admitted for the treatment of acute CHF exacerbation. Patient was treated with diuretics and spironolactone. It was found that the patient had a subtherapeutic INR on his coumadin for atrial fibrillation. Patient stated that he was on 4mg of coumadin at home but it was unclear whether he was compliant with his medication. He was admitted previously earlier this month for subtherapeutic INR and was discharged on 06/04. Patient never followed up with our clinic. Patient was started on a heparin drip to bridge to coumadin. After heparin drip stopped patient continued on coumadin 6mg to improve his INR. A couple of days before discharge, patient complained of chest pain, and an EKG was ordered that showed new T wave inversions. Patient got a stress test that revealed multivessel coronary artery disease and the decision was made to transfer the patient for cardiac catheterization at [place]. Patient's coumadin was stopped and he was given vitamin K to reduce his INR to an appropriate level for catheterization. He was discharged on 06/22/17 and transferred to [place]. Date of Discharge: 06/22/17 Minutes to complete discharge: 30 Discharge Summary Reason For Visit: DIASTOLIC CHF Condition: Stable - Instructions Referrals: Pritesh Nagel MD [Staff Physician] - Artem Weiner [Primary Care Provider] - Disposition: TRANSFER ACUTE CARE/OTHER HOSP - Home Medications Comprehensive Discharge Medication List: Ambulatory Orders Aspirin [ASA -] 81 mg PO DAILY #100 tab.chew 06/04/17 Atorvastatin Ca [Lipitor] 40 mg PO HS #30 tablet 06/04/17 Carvedilol [Coreg -] 6.25 mg PO BID #60 tablet 06/04/17 Furosemide [Lasix -] 40 mg PO DAILY #30 tablet 06/04/17 Miscellaneous Drug Not In Syst [Outpatient Lab Test] 1 each ASDIR #1 misc Miscellaneous Drug Not In Syst [Outpatient Lab Test] 1 each ASDIR #1 misc Potassium Chloride [K-Dur -] 20 meq PO DAILY #5 tablet.er 06/04/17 Spironolactone [Aldactone -] 25 mg PO DAILY #30 tablet 06/04/17 Valsartan [Diovan] 160 mg PO BID #60 tablet 06/04/17 Warfarin Sodium 4 mg PO HS #30 tablet 06/04/17 This patient is new to me today: No Emergency Visit: No Critical Care patient: No - Discharge Referral [facility]erred [facility] No
== END 2017-06-22 13:11 | disposition short-term general hospital (02) | DRG 280 ==
LOC: JER 07:36 → JERBED 10:44 → J4W 13:06
PROVIDERS: ADMIT Hospitalist; ATTEND Internal Medicine
DX: I13.0 Hypertensive heart and chronic kidney disease with heart failure and stage 1 through stage 4 chronic kidney disease, or unspecified chronic kidney disease (principal); I21.4 Non-ST elevation (NSTEMI) myocardial infarction; I50.43 Acute on chronic combined systolic (congestive) and diastolic (congestive) heart failure; N17.9 Acute kidney failure, unspecified; I24.9 Acute ischemic heart disease, unspecified; N18.3 Chronic kidney disease, stage 3 (moderate); I48.2 Chronic atrial fibrillation; E87.6 Hypokalemia; I25.10 Atherosclerotic heart disease of native coronary artery without angina pectoris; Z98.61 Coronary angioplasty status; R74.8 Abnormal levels of other serum enzymes; I27.20 Pulmonary hypertension, unspecified; E83.42 Hypomagnesemia; J06.9 Acute upper respiratory infection, unspecified; R07.89 Other chest pain
CPT/HCPCS: 36415; 71010-TC; 71250-TC; 78452-TC; 80048; 80053; 81003; 81015; 82550; 83735; 83880; 84100; 84484; 85025; 85027; 85610; 85730; 87040; 87420; 87804; 87899; 90670; 90688; 93005; 93010; 93017; 93306-TC; 97116-GP; 97161-GP; 99283-25; A9502; G0008; G0009; J1644

== ENCOUNTER 2017-08-08 11:46 | Inpatient (IN) | payer OTHER ==
--- NOTE | 2017-08-08 12:01 | PDOC ---
History of Present Illness - General History Source: Patient Exam Limitations: No Limitations - History of Present Illness Initial Comments: 08/08/17 14:08 Patient is a 82 year old male with a significant past medical history of Acute on chronic systolic congestive heart failure, coronary artery disease s/p PCI 2007, chronic kidney disease, permanent atrial fibrillation. pulmonary hypertension who was sent to the ED with complaints of high blood pressure. As per EMS patient was referred to the ED by visiting nurse due to high blood pressure. EMS reports nurse states patient is known to be noncompliant with his blood pressure medication. Patient reports experiencing intermittent episodes of SOB with exertion. Denies chest pain. Denies nausea, vomiting. Denies fevers, chill. Denies contact with sick individuals, out of state travelling. Denies any other symptoms. Allergies: Social history: No smoking. No alcohol. No illicit Surgical history: PCI PMD: None Other: Dr. Perla <Oracio Doan - Last Filed: 08/08/17 14:08> <Cass Fierro - Last Filed: 08/08/17 18:15> - General Stated Complaint: DIFFICULTY BREATHING Time Seen by Provider: 08/08/17 11:58 Past History <Oracio Doan - Last Filed: 08/08/17 14:08> - Past Medical History Anemia: No Asthma: No Cancer: No Cardiac Disorders: Yes CVA: No COPD: No CHF: Yes Dementia: No Diabetes: No GI Disorders: No Disorders: No HTN: Yes Hypercholesterolemia: Yes Liver Disease: No Seizures: No Thyroid Disease: No - Surgical History Abdominal Surgery: No Appendectomy: No Cardiac Surgery: Yes (stent) Cholecystectomy: No Lung Surgery: No Neurologic Surgery: No Orthopedic Surgery: No - Immunization History Immunization Up to Date: Yes - Suicide/Smoking/Psychosocial Hx Smoking History: Never smoked Have you smoked in the past 12 months: No Hx Alcohol Use: No Drug/Substance Use Hx: No Substance Use Type: None Hx Substance Use Treatment: No <Cass Fierro - Last Filed: 08/08/17 18:15> - Past Medical History Allergies/Adverse Reactions: Allergies Allergy/AdvReac Type Severity Reaction Status Date / Time No Known Allergies Allergy Verified 06/16/17 09:00 Home Medications: Ambulatory Orders Atorvastatin Ca [Lipitor] 40 mg PO HS #30 tablet 06/04/17 Furosemide [Lasix -] 40 mg PO DAILY #30 tablet 06/04/17 Potassium Chloride [K-Dur -] 20 meq PO DAILY #5 tablet.er 06/04/17 Valsartan [Diovan] 160 mg PO BID #60 tablet 06/04/17 Apixaban [Eliquis] 5 mg PO DAILY 08/08/17 Isosorbide Mononitrate 10 mg PO DAILY 08/08/17 Review of Systems - Review of Systems Able to Perform ROS?: Yes Comments:: 08/08/17 14:08 GENERAL/CONSTITUTIONAL: No fever or chills. No weakness. HEAD, EYES, EARS, NOSE AND THROAT: No change in vision. No ear pain or discharge. No sore throat. GASTROINTESTINAL: No nausea, vomiting, diarrhea or constipation. GENITOURINARY: No dysuria, frequency, or change in urination. CARDIOVASCULAR: +SOB No chest pain RESPIRATORY: No cough, wheezing, or hemoptysis. MUSCULOSKELETAL: No joint or muscle swelling or pain. No neck or back pain. SKIN: No rash NEUROLOGIC: No headache, vertigo, loss of consciousness, or change in strength/ sensation. ENDOCRINE: No increased thirst. No abnormal weight change. HEMATOLOGIC/LYMPHATIC: No anemia, easy bleeding, or history of blood clots. ALLERGIC/IMMUNOLOGIC: No hives or skin allergy. All Other Systems: Reviewed and Negative <Oracio Doan - Last Filed: 08/08/17 14:08> *Physical Exam - Vital Signs Last Vital Signs Temp Pulse Resp BP Pulse Ox 97.7 F 69 20 195/107 100 08/08/17 12:03 08/08/17 12:03 08/08/17 12:03 08/08/17 12:03 08/08/17 12:03 - Physical Exam Comments: 08/08/17 14:08 GENERAL: Awake, alert, and fully oriented, in no acute distress HEAD: No signs of trauma EYES: PERRLA, EOMI, sclera anicteric, conjunctiva clear ENT: Auricles normal inspection, hearing grossly normal, nares patent, oropharynx clear without exudates. Moist mucosa NECK: Normal ROM, supple, no lymphadenopathy, JVD, or masses LUNGS: Breath sounds equal, clear to auscultation bilaterally. No wheezes, and no crackles HEART: +Bradycardic. +Occasional extrasystole Regular rate and rhythm, normal S1 and S2, no murmurs, rubs or gallops ABDOMEN: Soft, nontender, normoactive bowel sounds. No guarding, no rebound. No masses EXTREMITIES: +1+pitting edema bilateral lower extremity. Normal range of motion, no edema. No clubbing or cyanosis. No cords, erythema, or tenderness NEUROLOGICAL: Cranial nerves II through XII grossly intact. Normal speech, normal gait SKIN: Warm, Dry, normal turgor, no rashes or lesions noted. <Oracio Doan - Last Filed: 08/08/17 14:08> ED Treatment Course - LABORATORY CBC & Chemistry Diagram: 08/08/17 12:25 08/08/17 12:25 - ADDITIONAL ORDERS Additional order review: Laboratory Results 08/08/17 08/08/17 12:25 12:25 PT with INR 17.30 H INR 1.53 H Sodium 146 H Potassium 3.1 L D Chloride 110 H Carbon Dioxide 27 Anion Gap 9 BUN 15 D Creatinine 1.7 H Creat Clearance w eGFR 38.68 Random Glucose 74 Calcium 8.6 Total Bilirubin 0.6 AST 21 ALT 18 D Alkaline Phosphatase 122 H D Creatine Kinase 75 Troponin I 0.87 H* B-Natriuretic Peptide 76592.26 H Total Protein 6.5 Albumin 3.1 L 08/08/17 12:25 RBC 4.42 MCV 87.0 MCHC 31.4 L RDW 16.2 H MPV 8.8 Neutrophils % 51.7 Lymphocytes % 33.0 Monocytes % 10.4 H Eosinophils % 4.0 Basophils % 0.9 - Medications Given in the ED: ED Medications Discontinued Medications Generic Name Dose Route Start Last Admin Trade Name Jermaineq PRN Reason Stop Dose Admin Potassium Chloride 40 meq 08/08/17 13:40 08/08/17 13:41 K-Dur - PO 08/08/17 13:41 40 meq ONCE ONE Administration <Oracio Doan - Last Filed: 08/08/17 14:08> - LABORATORY CBC & Chemistry Diagram: 08/08/17 12:25 08/08/17 12:25 <Cass Fierro - Last Filed: 08/08/17 18:15> Medical Decision Making - Medical Decision Making 08/08/17 14:02 Case d/w Dr. Perla for positive troponin. He is familiar with patient from prior admission, will evaluate. Recommended lasix. <Cass Fierro - Last Filed: 08/08/17 18:15> *DC/Admit/Observation/Transfer - Attestations Scribe Attestion: 08/08/17 14:08 Documentation prepared by Oracio oDan, acting as medical educator for Cass Fierro MD, /DO. <Oracio Doan - Last Filed: 08/08/17 14:08> - Discharge Dispostion Admit: Yes <Cass Fierro - Last Filed: 08/08/17 18:15> Diagnosis at time of Disposition: Elevated troponin CHF (congestive heart failure) Qualifiers: Congestive heart failure type: unspecified congestive heart failure type Congestive heart failure chronicity: acute on chronic - Discharge Dispostion Condition at time of disposition: Stable
[2017-08-08 12:33] LABS: BASO % 0.9 % (0-2.0); HEMATOCRIT 38.5 % (35.4-49); HEMOGLOBIN 12.1 GM/dL (11.7-16.9); MCH 27.3 pg (25.7-33.7); MCHC 31.4 g/dl (32.0-35.9); MEAN PLT VOLUME 8.8 fl (7.5-11.1); MONO % 10.4 % (3.8-10.2); NEUT % 51.7 % (42.8-82.8); PLATELET COUNT 150 K/MM3 (134-434); RBC 4.42 M/mm3 (4.00-5.60); RDW 16.2 % (11.9-15.9)
[2017-08-08 12:46] LABS: INR 1.53 (0.82-1.09); PROTHROMBIN TIME (PATIENT) 17.3 SEC (9.98-11.88)
[2017-08-08 13:33] LABS: ALBUMIN 3.1 g/dl (3.4-5.0); ANION GAP 9 (8-16); BILIRUBIN,TOTAL 0.6 mg/dL (0.2-1.0); BLOOD UREA NITROGEN 15 mg/dL (7-18); CALCIUM 8.6 mg/dL (8.5-10.1); CHLORIDE 110 mmol/L (98-107); CO2 27 mmol/L (21-32); CREATININE 1.7 mg/dL (0.7-1.3); GLUCOSE,RANDOM 74 mg/dL (74-106); POTASSIUM 3.1 mmol/L (3.5-5.1); SGOT/AST 21 U/L (15-37); SGPT/ALT 18 U/L (12-78); SODIUM 146 mmol/L (136-145); TOT PROT 6.5 g/dl (6.4-8.2)
[2017-08-08] MEDS ORDERED: POTASSIUM CHLORIDE TABS 20 MEQ TABLET.ER (FP) PO ONE ×3 (13:40→20:30)
[2017-08-08 13:49] LABS: ALK PHOS 122 U/L (45-117); N-TERMINAL BNP 19096.26 pg/ml (5-450)
[2017-08-08] MEDS ORDERED: FUROSEMIDE 40 MG/4 ML INJECTABLE VIAL IVPUSH ONE (14:22)
--- NOTE | 2017-08-08 14:27 | CON.CARD ---
Consult Consult Specialty:: Cardiology Reason for Consultation:: chf - History of Present Illness History of Present Illness: Patient is a 82 year old male with a significant past medical history of Acute on chronic systolic congestive heart failure, coronary artery disease s/p PCI 2007, chronic kidney disease, permanent atrial fibrillation. pulmonary hypertension CABG Jun [address] [facility] [address] Camargo, who was sent to the ED with complaints of high blood pressure. As per EMS patient was referred to the ED by visiting nurse due to high blood pressure. EMS reports nurse states patient is known to be noncompliant with his blood pressure medication. Patient reports experiencing intermittent episodes of SOB with exertion. Denies chest pain. Denies nausea, vomiting. Denies fevers, chill. Denies contact with sick individuals, out of state travelling. Denies any other symptoms. Allergies: Social history: No smoking. No alcohol. No illicit Surgical history: PCI/ CABG PMD: None Other: Dr. Perla - History Source History Provided By: Patient, Medical Record - Past Medical History Cardio/Vascular: Yes: AFIB, CAD, CHF, HTN - Past Surgical History Past Surgical History: Yes: CABG, Stent - Alcohol/Substance Use Hx Alcohol Use: No - Smoking History Smoking history: Never smoked Have you smoked in the past 12 months: No Home Medications - Allergies Allergies/Adverse Reactions: Allergies Allergy/AdvReac Type Severity Reaction Status Date / Time No Known Allergies Allergy Verified 06/16/17 09:00 - Home Medications Home Medications: Ambulatory Orders Atorvastatin Ca [Lipitor] 40 mg PO HS #30 tablet 06/04/17 Furosemide [Lasix -] 40 mg PO DAILY #30 tablet 06/04/17 Potassium Chloride [K-Dur -] 20 meq PO DAILY #5 tablet.er 06/04/17 Valsartan [Diovan] 160 mg PO BID #60 tablet 06/04/17 Apixaban [Eliquis] 5 mg PO DAILY 08/08/17 Isosorbide Mononitrate 10 mg PO DAILY 08/08/17 Review of Systems - Review of Systems Constitutional: reports: No Symptoms Eyes: reports: No Symptoms HENT: reports: No Symptoms Neck: reports: No Symptoms Cardiovascular: reports: Edema, Shortness of Breath Respiratory: reports: SOB Gastrointestinal: reports: No Symptoms Genitourinary: reports: No Symptoms Breasts: reports: No Symptoms Reported Musculoskeletal: reports: No Symptoms Integumentary: reports: No Symptoms Neurological: reports: No Symptoms Endocrine: reports: No Symptoms Hematology/Lymphatic: reports: No Symptoms Psychiatric: reports: No Symptoms Vital Signs: Vital Signs Temperature 97.7 F 08/08/17 12:03 Pulse Rate 69 08/08/17 12:03 Respiratory Rate 20 08/08/17 12:03 Blood Pressure 195/107 08/08/17 12:03 O2 Sat by Pulse Oximetry (%) 100 08/08/17 12:03 Constitutional: Yes: Well Nourished, No Distress, Calm Eyes: Yes: WNL, Conjunctiva Clear, EOM Intact HENT: Yes: WNL, Atraumatic, Normocephalic Neck: Yes: WNL, Supple, Trachea Midline Respiratory: Yes: WNL, Regular, CTA Bilaterally Gastrointestinal: Yes: WNL, Normal Bowel Sounds Renal/: Yes: WNL Cardiovascular: Yes: WNL, Regular Rate and Rhythm Musculoskeletal: Yes: WNL Extremities: Yes: WNL Edema: Yes Edema: LLE: 2+, RLE: 2+ Integumentary: Yes: WNL Neurological: Yes: WNL, Alert, Oriented ...Motor Strength: WNL Psychiatric: Yes: WNL, Alert, Oriented - Other Data Labs, Other Data: CBC, BMP 08/08/17 12:25 08/08/17 12:25 INR, PTT INR 1.53 (0.82-1.09) H 08/08/17 12:25 Troponin, BNP 08/08/17 12:25 Troponin I 0.87 H* B-Natriuretic Peptide 24873.26 H Troponin, BNP 08/08/17 12:25 Troponin I 0.87 H* B-Natriuretic Peptide 18553.26 H Laboratory Results - last 24 hr 08/08/17 08/08/17 08/08/17 12:25 12:25 12:25 WBC 4.0 RBC 4.42 Hgb 12.1 D Hct 38.5 MCV 87.0 MCH 27.3 MCHC 31.4 L RDW 16.2 H Plt Count 150 MPV 8.8 Neutrophils % 51.7 Lymphocytes % 33.0 Monocytes % 10.4 H Eosinophils % 4.0 Basophils % 0.9 PT with INR 17.30 H INR 1.53 H Sodium 146 H Potassium 3.1 L D Chloride 110 H Carbon Dioxide 27 Anion Gap 9 BUN 15 D Creatinine 1.7 H Creat Clearance w eGFR 38.68 Random Glucose 74 Calcium 8.6 Total Bilirubin 0.6 AST 21 ALT 18 D Alkaline Phosphatase 122 H D Creatine Kinase 75 Troponin I 0.87 H* B-Natriuretic Peptide 10350.26 H Total Protein 6.5 Albumin 3.1 L Imaging - Results Chest X-ray: Image Reviewed (cm s/p OHS CHF) EKG: Image Reviewed (af rep abn vpc's) Problem List - Problems (1) Acute on chronic combined systolic and diastolic CHF, NYHA class 2 Code(s): I50.43 - ACUTE ON CHRONIC COMBINED SYSTOLIC AND DIASTOLIC HRT FAIL (2) Acute on chronic diastolic CHF (congestive heart failure) Code(s): I50.33 - ACUTE ON CHRONIC DIASTOLIC (CONGESTIVE) HEART FAILURE (3) Atrial fibrillation with controlled ventricular response Code(s): I48.91 - UNSPECIFIED ATRIAL FIBRILLATION (4) CHF (congestive heart failure) Code(s): I50.9 - HEART FAILURE, UNSPECIFIED Qualifiers: Congestive heart failure type: unspecified congestive heart failure type Congestive heart failure chronicity: acute on chronic Qualified Code(s): I50.9 - Heart failure, unspecified (5) Coronary artery disease Code(s): I25.10 - ATHSCL HEART DISEASE OF [place] CORONARY ARTERY W/O ANG PCTRS Qualifiers: Coronary Disease-Associated Artery/Lesion type: [place] artery [place] vs. transplanted heart: [place] heart Associated angina: with stable angina Qualified Code(s): I25.118 - Atherosclerotic heart disease of [place] coronary artery with other forms of angina pectoris (6) Elevated troponin Code(s): R74.8 - ABNORMAL LEVELS OF OTHER SERUM ENZYMES (7) Hypertensive cardiomyopathy Code(s): I11.9 - HYPERTENSIVE HEART DISEASE WITHOUT HEART FAILURE; I42.9 - CARDIOMYOPATHY, UNSPECIFIED Qualifiers: Heart failure presence: with heart failure Qualified Code(s): I11.0 - Hypertensive heart disease with heart failure (8) Hypokalemia Code(s): E87.6 - HYPOKALEMIA (9) Subendocardial ischemia Code(s): I24.8 - OTHER FORMS OF ACUTE ISCHEMIC HEART DISEASE (10) Chronic kidney disease (CKD) Code(s): N18.9 - CHRONIC KIDNEY DISEASE, UNSPECIFIED Qualifiers: Chronic kidney disease stage: stage 3 (moderate) Qualified Code(s): N18.3 - Chronic kidney disease, stage 3 (moderate) (11) Pulmonary hypertension Code(s): I27.2 - OTHER SECONDARY PULMONARY HYPERTENSION * DO NOT USE * (12) S/P coronary artery stent placement Code(s): Z95.5 - PRESENCE OF CORONARY ANGIOPLASTY IMPLANT AND GRAFT (13) Tricuspid regurgitation Code(s): I07.1 - RHEUMATIC TRICUSPID INSUFFICIENCY (14) Acute kidney injury Code(s): N17.9 - ACUTE KIDNEY FAILURE, UNSPECIFIED Assessment/Plan Acute on chronic systolic congestive heart failure, coronary artery disease s/p PCI 2007, chronic kidney disease, permanent atrial fibrillation. pulmonary hypertension, non-compilence CABG Jun [address] [facility] [address] Camargo, who was sent to the ED with complaints of high blood pressure and decompensated CHF. Elevated tnis most likely due to acute chf exacerbation and cri Plan iv lasix telemetry supplement k echo restart med. rx restart ac
[2017-08-08] MEDS ORDERED: FUROSEMIDE 40 MG/4 ML INJECTABLE VIAL ONE (14:43)
--- NOTE | 2017-08-08 15:24 | EKG ---
Test Reason : Blood Pressure : / mmHG Vent. Rate : 057 BPM Atrial Rate : 050 BPM P-R Int : 000 ms QRS Dur : 098 ms QT Int : 450 ms P-R-T Axes : 000 013 233 degrees QTc Int : 438 ms ATRIAL FIBRILLATION WITH SLOW VENTRICULAR RESPONSE WITH PREMATURE VENTRICULAR OR ABERRANTLY CONDUCTED COMPLEXES POSSIBLE INFERIOR INFARCT (CITED ON OR BEFORE 30-OCT-2016) POSSIBLE ANTERIOR INFARCT , AGE UNDETERMINED ABNORMAL ECG WHEN COMPARED WITH ECG OF 19-JUN-2017 09:20, BORDERLINE CRITERIA FOR ANTERIOR INFARCT ARE NOW PRESENT QUESTIONABLE CHANGE IN INITIAL FORCES OF INFERIOR LEADS Confirmed by QUINCY CURTIS MD ([id number]) on 08/08/2017 3:23:47 PM Referred By: Confirmed By:QUINCY CURTIS MD
--- NOTE | 2017-08-08 16:03 | HP ---
Admitting History and Physical - Admission Chief Complaint: elevated BP History of Present Illness: This is an 82 year old male with pmhx systolic CHF, CAD, s/p pci 2007, CKD, A fib, pulm HTN, CABG 06/2017 @ [place] with Dr. Camargo who was sent to ED by his visiting nurse for elevated BP. The patient himself denies dizziness, BHATTI or burry vision. Per ED record the VNS says pt is known to be med non compliant. Patient does endorse some increase fluid in lower ext, however he has no overt edema. Denies chest pain, abd pain, n/v. History Source: Patient, Medical Record Limitations to Obtaining History: No Limitations - Past Medical History Cardiovascular: Yes: AFIB, CAD, CHF, HTN - Past Surgical History Past Surgical History: Yes: CABG, Stent - Smoking History Smoking history: Never smoked Have you smoked in the past 12 months: No - Alcohol/Substance Use Hx Alcohol Use: No Home Medications - Allergies Allergies/Adverse Reactions: Allergies Allergy/AdvReac Type Severity Reaction Status Date / Time No Known Allergies Allergy Verified 06/16/17 09:00 - Home Medications Home Medications: Ambulatory Orders Atorvastatin Ca [Lipitor] 40 mg PO HS #30 tablet 06/04/17 Furosemide [Lasix -] 40 mg PO DAILY #30 tablet 06/04/17 Potassium Chloride [K-Dur -] 20 meq PO DAILY #5 tablet.er 06/04/17 Valsartan [Diovan] 160 mg PO BID #60 tablet 06/04/17 Apixaban [Eliquis] 5 mg PO DAILY 08/08/17 Isosorbide Mononitrate 10 mg PO DAILY 08/08/17 Review of Systems - Review of Systems Constitutional: reports: No Symptoms Eyes: reports: No Symptoms HENT: reports: No Symptoms Neck: reports: No Symptoms Cardiovascular: reports: No Symptoms Respiratory: reports: SOB Gastrointestinal: reports: No Symptoms Genitourinary: reports: No Symptoms Musculoskeletal: reports: No Symptoms Integumentary: reports: No Symptoms Neurological: reports: No Symptoms Endocrine: reports: No Symptoms Hematology/Lymphatic: reports: No Symptoms Psychiatric: reports: No Symptoms Physical Examination Vital Signs: Vital Signs Temperature 97.7 F 08/08/17 12:03 Pulse Rate 44 L 08/08/17 13:00 Respiratory Rate 26 H 08/08/17 13:00 Blood Pressure 209/98 08/08/17 13:00 O2 Sat by Pulse Oximetry (%) 98 08/08/17 13:00 Constitutional: Yes: Calm Eyes: Yes: Conjunctiva Clear HENT: Yes: Atraumatic Neck: Yes: Supple Cardiovascular: Yes: Bradycardia, S1, S2 Respiratory: Yes: Regular, CTA Bilaterally, On Nasal O2 Gastrointestinal: Yes: Normal Bowel Sounds, Soft Renal/: Yes: WNL Musculoskeletal: Yes: WNL Edema: No Integumentary: Yes: WNL Neurological: Yes: Alert, Oriented, Cran Nerves II-XII Intact Psychiatric: Yes: Alert, Oriented Labs: CBC, BMP 08/08/17 12:25 08/08/17 12:25 Imaging - Results Chest X-ray: Report Reviewed (mild pulm congestion) EKG: Report Reviewed, Image Reviewed (possible anterior infarct) Other: Report Reviewed (echo: lv normal size, mild redued function, mod global hypokinesis, septal wall c/w post op state, mod TR, rvsp 40-50mmhg, mild mr) Problem List - Problems (1) CHF (congestive heart failure) Code(s): I50.9 - HEART FAILURE, UNSPECIFIED Qualifiers: Congestive heart failure type: unspecified congestive heart failure type Congestive heart failure chronicity: acute on chronic (2) Elevated troponin Code(s): R74.8 - ABNORMAL LEVELS OF OTHER SERUM ENZYMES (3) Atrial fibrillation with controlled ventricular response Code(s): I48.91 - UNSPECIFIED ATRIAL FIBRILLATION (4) Coronary artery disease Code(s): I25.10 - ATHSCL HEART DISEASE OF [place] CORONARY ARTERY W/O ANG PCTRS Qualifiers: Coronary Disease-Associated Artery/Lesion type: [place] artery [place] vs. transplanted heart: [place] heart Associated angina: with stable angina Qualified Code(s): I25.118 - Atherosclerotic heart disease of [place] coronary artery with other forms of angina pectoris (5) Hypertensive cardiomyopathy Code(s): I11.9 - HYPERTENSIVE HEART DISEASE WITHOUT HEART FAILURE; I42.9 - CARDIOMYOPATHY, UNSPECIFIED Qualifiers: Heart failure presence: with heart failure Qualified Code(s): I11.0 - Hypertensive heart disease with heart failure (6) Hypokalemia Code(s): E87.6 - HYPOKALEMIA (7) Chronic kidney disease (CKD) Code(s): N18.9 - CHRONIC KIDNEY DISEASE, UNSPECIFIED Qualifiers: Chronic kidney disease stage: stage 3 (moderate) Qualified Code(s): N18.3 - Chronic kidney disease, stage 3 (moderate) (8) Pulmonary hypertension Code(s): I27.2 - OTHER SECONDARY PULMONARY HYPERTENSION * DO NOT USE * (9) S/P coronary artery stent placement Code(s): Z95.5 - PRESENCE OF CORONARY ANGIOPLASTY IMPLANT AND GRAFT Assessment/Plan Assessment: 82 year old male admitted with hypertensive urgency and chf exacerbation Plan: 1. Hypertensive Urgency - Caution with bb, pt bradycardic, caution with hydralazine - Give diovan po 160mg x1 now - Give amlodipine 5mg if persistently elevated - Diovan 160mg BID - restart in AM - Iso mono 10mg daily 2. Acute on chronic CHF exacerbation - Lasix 40mg in ed - Resume lasix 40mg IV AM - ECHO done results above - Check tsh, lipid panel - Cardiology seeing - Telemetry monitoring 3. CKD - Renal fx appears stable 4. A fib - Unclear why eliquis 5mg daily - Will increase to 5mg BID 5. Hypokalemia - Repleted in ED - Will give additional dose in 4 hrs - Check mg Visit type - Emergency Visit Emergency Visit: Yes ED Registration Date: 08/08/17 Care time: The patient presented to the Emergency Department on the above date and was hospitalized for further evaluation of their emergent condition. - New Patient This patient is new to me today: Yes Date on this admission: 08/08/17 - Critical Care Critical Care patient: No
[2017-08-08] MEDS ORDERED: VALSARTAN 160 MG TABLET (UD) PO ONE (16:30)
[2017-08-08] MEDS ORDERED: POTASSIUM CHLORIDE ORAL LIQUID 20 MEQ/15 ML PO ONE (16:45)
[2017-08-08] MEDS ORDERED: VALSARTAN 80 MG TABLET (UD) ONE (20:30)
[2017-08-08 21:01] LABS: ANION GAP 8 (8-16); BLOOD UREA NITROGEN 17 mg/dL (7-18); CALCIUM 7.8 mg/dL (8.5-10.1); CHLORIDE 112 mmol/L (98-107); CO2 27 mmol/L (21-32); CREATININE 1.8 mg/dL (0.7-1.3); GLUCOSE,RANDOM 94 mg/dL (74-106); MAGNESIUM 1.6 mg/dL (1.8-2.4); POTASSIUM 3.3 mmol/L (3.5-5.1); SODIUM 147 mmol/L (136-145)
[2017-08-08] MEDS ORDERED: amLODIPine BESYLATE 5 MG TABLET (FP) PO ONE (22:00)
[2017-08-08] MEDS ORDERED: MAGNESIUM SULF 50% (8.12 MEQ/2 ML-1 GM VIAL) IVPB ONE (22:00)
[2017-08-08] MEDS ORDERED: VALSARTAN 160 MG TABLET (UD) PO SCH (22:00)
[2017-08-08] MEDS: ATORVASTATIN CA 40 MG TABLET (FP) PO SCH (22:21)
[2017-08-08] MEDS: APIXABAN 5 MG TABLET PO SCH (23:15)
[2017-08-08 23:43] VITALS: BMI 24.5
[2017-08-09 06:47] LABS: BASO % 0.3 % (0-2.0); EOS % 5.3 % (0-4.5); HEMATOCRIT 36.5 % (35.4-49); HEMOGLOBIN 11.9 GM/dL (11.7-16.9); LYMPH % 33.8 % (8-40); MCH 28.3 pg (25.7-33.7); MCHC 32.7 g/dl (32.0-35.9); MEAN CELL VOLUME 86.6 fl (80-96); MEAN PLT VOLUME 9.2 fl (7.5-11.1); MONO % 9.8 % (3.8-10.2); NEUT % 50.8 % (42.8-82.8); PLATELET COUNT 152 K/MM3 (134-434); RBC 4.21 M/mm3 (4.00-5.60); RDW 16.2 % (11.9-15.9); WHITE BLOOD COUNT 3.5 K/mm3 (4.0-10.0)
[2017-08-09 07:13] LABS: CHLORIDE 112 mmol/L (98-107); POTASSIUM 3.7 mmol/L (3.5-5.1); SODIUM 145 mmol/L (136-145)
[2017-08-09 07:28] LABS: ALBUMIN 2.8 g/dl (3.4-5.0); ALK PHOS 119 U/L (45-117); ANION GAP 7 (8-16); BILIRUBIN,TOTAL 0.8 mg/dL (0.2-1.0); BLOOD UREA NITROGEN 17 mg/dL (7-18); CALCIUM 7.9 mg/dL (8.5-10.1); CO2 26 mmol/L (21-32); CREATININE 1.7 mg/dL (0.7-1.3); GLUCOSE,RANDOM 82 mg/dL (74-106); MAGNESIUM 1.9 mg/dL (1.8-2.4); PHOSPHOROUS 2.9 mg/dL (2.5-4.9); SGOT/AST 18 U/L (15-37); SGPT/ALT 17 U/L (12-78); TOT PROT 6.2 g/dl (6.4-8.2)
[2017-08-09 09:11] LABS: CHOLESTEROL 103 mg/dL (50-200); HDL CHOLESTEROL 39 mg/dl (29-89); LDL CHOLESTEROL (ONLY SJRH) 56 mg/dL (5-100); TRIGLYCERIDES 56 mg/dL (35-160)
[2017-08-09] MEDS: APIXABAN 5 MG TABLET PO SCH ×2 (09:26→21:55)
[2017-08-09] MEDS: FUROSEMIDE 40 MG/4 ML INJECTABLE VIAL IVPUSH SCH (09:26)
[2017-08-09] MEDS: VALSARTAN 160 MG TABLET (UD) PO SCH ×2 (09:26→21:55)
--- NOTE | 2017-08-09 09:30 | PN ---
Progress Note, Physician Chief Complaint: Pt alert;denies acute chest pain (does have "numbness" on both sides of sternal CABG surgical scar) or shortness of breath. History of Present Illness: Patient is an 82 year old male with a significant past medical history of CAD-- > PCI 2007, and CABG late 2017 at [facility], Acute on chronic systolic congestive heart failure, chronic kidney disease, permanent atrial fibrillation. pulmonary hypertension who was sent to the ED with complaints of high blood pressure. As per EMS patient was referred to the ED by visiting nurse due to high blood pressure. EMS reports nurse states patient is known to be noncompliant with his blood pressure medication. Patient reports experiencing intermittent episodes of SOB with exertion. Denies chest pain. Denies nausea, vomiting. Denies fevers, chill. Denies contact with sick individuals, out of state travelling. Denies any other symptoms. Allergies: Social history: No smoking. No alcohol. No illicit Surgical history: PCI; CABG PMD: None Other: Dr. Perla (Pt has never come to the cardiac office since CABG). - Current Medication List Current Medications: Active Medications Apixaban (Eliquis -) 5 mg PO BID [facility] Last Admin: 08/09/17 09:26 Dose: 5 mg Atorvastatin Calcium (Lipitor -) 40 mg PO HS [facility] Last Admin: 08/08/17 22:21 Dose: 40 mg Furosemide (Lasix Injection -) 40 mg IVPUSH DAILY [facility] Last Admin: 08/09/17 09:26 Dose: 40 mg Isosorbide Mononitrate (Ismo -) 10 mg PO DAILY [facility] Valsartan (Diovan -) 160 mg PO BID [facility] Last Admin: 08/09/17 09:26 Dose: 160 mg - Objective Vital Signs: Vital Signs Temperature 97.4 F L 08/09/17 02:28 Pulse Rate 60 08/09/17 06:00 Respiratory Rate 20 08/09/17 06:00 Blood Pressure 178/90 08/09/17 06:00 O2 Sat by Pulse Oximetry (%) 97 08/08/17 21:30 Constitutional: Yes: Calm Eyes: Yes: WNL HENT: Yes: WNL Neck: Yes: WNL Cardiovascular: Yes: Pulse Irregular, S1 (varies in intensity) Respiratory: Yes: Regular Gastrointestinal: Yes: Soft ...Rectal Exam: Yes: Deferred Genitourinary: Yes: Urethral Discharge. No: Anuria Musculoskeletal: Yes: WNL Extremities: Yes: Cool Edema: No Peripheral Pulses WNL: No Peripheral Pulses: Left Doralis Pedis: 1+, Right Dorsalis Pedis: 1+ Integumentary: Yes: WNL Neurological: Yes: Alert, Weakness Psychiatric: Yes: Other Labs: CBC, BMP 08/09/17 05:40 08/09/17 05:40 INR, PTT INR 1.53 (0.82-1.09) H 08/08/17 12:25 - ....Imaging Other: Image Reviewed (telemetry: AF; controlled VR) Problem List - Problems (1) Elevated troponin Assessment/Plan: midly elevated TNI, with normal CK No acute changes on EKG; AF. Code(s): R74.8 - ABNORMAL LEVELS OF OTHER SERUM ENZYMES (2) Acute on chronic combined systolic and diastolic CHF, NYHA class 2 Assessment/Plan: Continue hydralazine+isosorbide mononitrate. Start metoprolol ER Decreased furosemdie to 20 mg daily. Code(s): I50.43 - ACUTE ON CHRONIC COMBINED SYSTOLIC AND DIASTOLIC HRT FAIL (3) Atrial fibrillation with controlled ventricular response Assessment/Plan: Not on AV conduction monisha for HR control (HR ahs shown premominately slow VR since admission). Code(s): I48.91 - UNSPECIFIED ATRIAL FIBRILLATION (4) Coronary artery disease Code(s): I25.10 - ATHSCL HEART DISEASE OF [place] CORONARY ARTERY W/O ANG PCTRS Qualifiers: Coronary Disease-Associated Artery/Lesion type: [place] artery [place] vs. transplanted heart: [place] heart Associated angina: with stable angina Qualified Code(s): I25.118 - Atherosclerotic heart disease of [place] coronary artery with other forms of angina pectoris (5) Hypertensive cardiomyopathy Code(s): I11.9 - HYPERTENSIVE HEART DISEASE WITHOUT HEART FAILURE; I42.9 - CARDIOMYOPATHY, UNSPECIFIED Qualifiers: Heart failure presence: with heart failure Qualified Code(s): I11.0 - Hypertensive heart disease with heart failure (6) Chronic kidney disease (CKD) Code(s): N18.9 - CHRONIC KIDNEY DISEASE, UNSPECIFIED Qualifiers: Chronic kidney disease stage: stage 3 (moderate) Qualified Code(s): N18.3 - Chronic kidney disease, stage 3 (moderate) (7) Pulmonary hypertension Code(s): I27.2 - OTHER SECONDARY PULMONARY HYPERTENSION * DO NOT USE *
[2017-08-09] MEDS ORDERED: PT OWN MED DRAWER 7, Y5N ONE (09:38)
[2017-08-09] MEDS ORDERED: amLODIPine BESYLATE 2.5 MG TABLET (FP) PO SCH (10:00)
[2017-08-09] MEDS ORDERED: APIXABAN 5 MG TABLET PO SCH (10:00)
[2017-08-09] MEDS ORDERED: FUROSEMIDE 40 MG TABLET (FP) PO SCH (10:00)
[2017-08-09] MEDS: hydrALAZINE HCL 10 MG TABLET PO SCH ×2 (10:51→21:54)
[2017-08-09] MEDS: ISOSORBIDE MONONITRATE 20 MG TABLET PO SCH (10:52)
--- NOTE | 2017-08-09 12:29 | EKG ---
Test Reason : Blood Pressure : / mmHG Vent. Rate : 065 BPM Atrial Rate : 159 BPM P-R Int : 000 ms QRS Dur : 092 ms QT Int : 416 ms P-R-T Axes : 000 -01 228 degrees QTc Int : 432 ms ATRIAL FIBRILLATION WITH PREMATURE VENTRICULAR OR ABERRANTLY CONDUCTED COMPLEXES MINIMAL VOLTAGE CRITERIA FOR LVH, MAY BE NORMAL VARIANT INFERIOR INFARCT (CITED ON OR BEFORE 30-OCT-2016) ABNORMAL ECG WHEN COMPARED WITH ECG OF 08-AUG-2017 11:55, QUESTIONABLE CHANGE IN INITIAL FORCES OF INFERIOR LEADS Confirmed by PAL MCCANN MD ([id number]) on 08/09/2017 12:29:45 PM Referred By: Confirmed By:PAL MCCANN MD
--- NOTE | 2017-08-09 13:34 | PN ---
Physical Exam: SUBJECTIVE: Patient seen and examined at the bedside. OBJECTIVE: Vital Signs Period Temp Pulse Resp BP Sys/Ayala Pulse Ox Last 24 Hr 97.4 F-98.2 F 44-74 16-20 152-186/81-98 97-100 GENERAL: The patient is awake, alert, and fully oriented, in no acute distress. HEAD: Normal with no signs of trauma. EYES: PERRL, extraocular movements intact, sclera anicteric, conjunctiva clear. No ptosis. ENT: Ears normal, nares patent, oropharynx clear without exudates, moist mucous membranes. NECK: Trachea midline, full range of motion, supple. LUNGS: Breath sounds equal, clear to auscultation bilaterally, no wheezes HEART: irregular ABDOMEN: Soft, nontender, nondistended, normoactive bowel sounds, EXTREMITIES: no edema. NEUROLOGICAL: Normal speech, gait not observed. PSYCH: Normal mood, normal affect. SKIN: Surgical chest scar Laboratory Results - last 24 hr 08/08/17 08/08/17 08/08/17 12:25 19:30 19:30 WBC RBC Hgb Hct MCV MCH MCHC RDW Plt Count MPV Neutrophils % Lymphocytes % Monocytes % Eosinophils % Basophils % Sodium 146 H Potassium 3.1 L D Chloride 110 H Carbon Dioxide 27 Anion Gap 9 BUN 15 D Creatinine 1.7 H Creat Clearance w eGFR 38.68 Random Glucose 74 Calcium 8.6 Phosphorus Magnesium 1.6 L D Total Bilirubin 0.6 AST 21 ALT 18 D Alkaline Phosphatase 122 H D Creatine Kinase 75 71 Troponin I 0.87 H* 0.83 H* B-Natriuretic Peptide 65801.26 H Total Protein 6.5 Albumin 3.1 L Triglycerides Cholesterol Total LDL Cholesterol HDL Cholesterol TSH 08/08/17 08/09/17 08/09/17 19:30 05:40 05:40 WBC 3.5 L RBC 4.21 Hgb 11.9 Hct 36.5 MCV 86.6 MCH 28.3 MCHC 32.7 RDW 16.2 H Plt Count 152 MPV 9.2 Neutrophils % 50.8 Lymphocytes % 33.8 Monocytes % 9.8 Eosinophils % 5.3 H Basophils % 0.3 Sodium 147 H 145 Potassium 3.3 L 3.7 Chloride 112 H 112 H Carbon Dioxide 27 26 Anion Gap 8 7 L BUN 17 17 Creatinine 1.8 H 1.7 H Creat Clearance w eGFR 38.68 Random Glucose 94 D 82 Calcium 7.8 L 7.9 L Phosphorus 2.9 Magnesium 1.6 L 1.9 Total Bilirubin 0.8 D AST 18 ALT 17 Alkaline Phosphatase 119 H Creatine Kinase 65 Troponin I 0.83 H* B-Natriuretic Peptide Total Protein 6.2 L Albumin 2.8 L Triglycerides 56 D Cholesterol 103 D Total LDL Cholesterol 56 D HDL Cholesterol 39 TSH 1.22 D 08/09/17 08/09/17 05:40 05:40 WBC RBC Hgb Hct MCV MCH MCHC RDW Plt Count MPV Neutrophils % Lymphocytes % Monocytes % Eosinophils % Basophils % Sodium Potassium Chloride Carbon Dioxide Anion Gap BUN Creatinine Creat Clearance w eGFR Random Glucose Calcium Phosphorus Magnesium Total Bilirubin AST ALT Alkaline Phosphatase Creatine Kinase Cancelled Troponin I Cancelled B-Natriuretic Peptide Total Protein Albumin Triglycerides Cancelled Cholesterol Cancelled Total LDL Cholesterol Cancelled HDL Cholesterol Cancelled TSH Active Medications Generic Name Dose Route Start Last Admin Trade Name Freq PRN Reason Stop Dose Admin Apixaban 5 mg 08/08/17 22:45 08/09/17 09:26 Eliquis - PO 5 mg BID TORIN Administration Atorvastatin Calcium 40 mg 08/08/17 22:00 08/08/17 22:21 Lipitor - PO 40 mg HS TORIN Administration Furosemide 40 mg 08/09/17 10:00 08/09/17 09:26 Lasix Injection - IVPUSH 40 mg DAILY TORIN Administration Hydralazine HCl 10 mg 08/09/17 10:00 08/09/17 10:51 Apresoline - PO 10 mg BID TORIN Administration Isosorbide Mononitrate 10 mg 08/09/17 10:00 08/09/17 10:52 Ismo - PO 10 mg DAILY TORIN Administration Valsartan 160 mg 08/09/17 10:00 08/09/17 09:26 Diovan - PO 160 mg BID TORIN Administration ASSESSMENT/PLAN: patient is a 82 year old male admitted on 08/08/2017 with hypertensive urgency and chf exacerbation. His significant past medical history consists of of CAD> PCI 2007, and CABG late 2017 at [facility], acute on chronic systolic congestive heart failure, chronic kidney disease, permanent atrial fibrillation. pulmonary hypertension who was sent to the ED with complaints of high blood pressure. Patient reports experiencing intermittent episodes of SOB with exertion. Denies chest pain. Denies nausea, vomiting. Denies fevers, chills. Cardiology: Uncontrolled Hypertension BP remains elevated today but improving since admission On Diovan 160mg PO BID, Hydralazine 10mg PO BID, Ismo 10mg daily Monitor BP Respiratory pre and post Cardiology following Acute on chronic CHF exacerbation SOB at home On Lasix 40mg IV push daily Monitor creatinine Cardiology following Respiratory pre and post Renal YFN Monitor creatinine F.E.N. Fluids: Monitor PO Electrolytes: Monitor cmp Nutrition: low sodium diet Prophylaxis: DVT: Eliquis GI: deferred Visit type - Emergency Visit Emergency Visit: Yes ED Registration Date: 08/08/17 Care time: The patient presented to the Emergency Department on the above date and was hospitalized for further evaluation of their emergent condition. - New Patient This patient is new to me today: Yes Date on this admission: 08/10/17 - Critical Care Critical Care patient: No - Discharge Referral Referred to [facility] Med P.C.: Yes Physician Referral: Brittnee Zavala MD ([facility])
[2017-08-09] MEDS: ATORVASTATIN CA 40 MG TABLET (FP) PO SCH (21:55)
[2017-08-10 07:36] LABS: BASO % 0.7 % (0-2.0); HEMOGLOBIN 12.3 GM/dL (11.7-16.9); MCH 27.2 pg (25.7-33.7); MCHC 31.6 g/dl (32.0-35.9); MEAN CELL VOLUME 86.2 fl (80-96); MEAN PLT VOLUME 9.1 fl (7.5-11.1); MONO % 9.2 % (3.8-10.2); NEUT % 43.1 % (42.8-82.8); PLATELET COUNT 147 K/MM3 (134-434); RBC 4.53 M/mm3 (4.00-5.60); RDW 15.9 % (11.9-15.9); WHITE BLOOD COUNT 3.9 K/mm3 (4.0-10.0)
[2017-08-10] MEDS ORDERED: PT OWN MED DRAWER 7, Y5N ONE ×2 (08:01→08:55)
[2017-08-10 08:06] LABS: CHLORIDE 108 mmol/L (98-107); POTASSIUM 3.4 mmol/L (3.5-5.1); SODIUM 143 mmol/L (136-145)
[2017-08-10 08:17] LABS: ALBUMIN 2.8 g/dl (3.4-5.0); ALK PHOS 118 U/L (45-117); ANION GAP 10 (8-16); BILIRUBIN,TOTAL 0.7 mg/dL (0.2-1.0); BLOOD UREA NITROGEN 19 mg/dL (7-18); CALCIUM 7.7 mg/dL (8.5-10.1); CO2 25 mmol/L (21-32); CREATININE 1.8 mg/dL (0.7-1.3); GLUCOSE,RANDOM 84 mg/dL (74-106); MAGNESIUM 1.7 mg/dL (1.8-2.4); SGOT/AST 13 U/L (15-37); SGPT/ALT 16 U/L (12-78); TOT PROT 6.2 g/dl (6.4-8.2)
[2017-08-10] MEDS ORDERED: POTASSIUM CHLORIDE TABS 20 MEQ TABLET.ER (FP) PO ONE (08:30)
[2017-08-10] MEDS ORDERED: MAGNESIUM OXIDE 400 MG TABLET (FP) PO ONE (08:30)
[2017-08-10] MEDS: APIXABAN 5 MG TABLET PO SCH ×2 (08:59→21:37)
[2017-08-10] MEDS: hydrALAZINE HCL 10 MG TABLET PO SCH ×2 (08:59→21:37)
[2017-08-10] MEDS: ISOSORBIDE MONONITRATE 20 MG TABLET PO SCH (09:00)
[2017-08-10] MEDS: VALSARTAN 160 MG TABLET (UD) PO SCH ×2 (09:03→21:37)
[2017-08-10] MEDS: FUROSEMIDE 40 MG/4 ML INJECTABLE VIAL IVPUSH SCH (10:05)
[2017-08-10] MEDS ORDERED: hydrALAZINE HCL 10 MG TABLET PO ONE (16:20)
--- NOTE | 2017-08-10 16:27 | PN ---
Progress Note, Physician Chief Complaint: Pt alet; OOB in [facility]; ambulates well. No chest pain or dyspnea. History of Present Illness: Patient is an 82 year old male with a significant past medical history of CAD-- > PCI 2007, and CABG late 2016 at [facility], Acute on chronic systolic congestive heart failure, chronic kidney disease, permanent atrial fibrillation. pulmonary hypertension who was sent to the ED with complaints of high blood pressure. As per EMS patient was referred to the ED by visiting nurse due to high blood pressure. EMS reports nurse states patient is known to be noncompliant with his blood pressure medication. Patient reports experiencing intermittent episodes of SOB with exertion. Denies chest pain. Denies nausea, vomiting. Denies fevers, chill. Denies contact with sick individuals, out of state travelling. Denies any other symptoms. Allergies: Social history: No smoking. No alcohol. No illicit Surgical history: PCI; CABG PMD: None Other: Dr. Perla (Pt has never come to the cardiac office since CABG). - Current Medication List Current Medications: Active Medications Apixaban (Eliquis -) 5 mg PO BID [facility] Last Admin: 08/10/17 08:59 Dose: 5 mg Atorvastatin Calcium (Lipitor -) 40 mg PO HS [facility] Last Admin: 08/09/17 21:55 Dose: 40 mg Furosemide (Lasix Injection -) 40 mg IVPUSH DAILY [facility] Last Admin: 08/10/17 10:05 Dose: 40 mg Hydralazine HCl (Apresoline -) 25 mg PO BID [facility] Hydralazine HCl (Apresoline -) 10 mg PO ONCE ONE Stop: 08/10/17 16:21 Isosorbide Mononitrate (Ismo -) 10 mg PO DAILY [facility] Last Admin: 08/10/17 09:00 Dose: 10 mg Valsartan (Diovan -) 160 mg PO BID [facility] Last Admin: 08/10/17 09:03 Dose: 160 mg - Objective Vital Signs: Vital Signs Temperature 97.9 F 08/10/17 15:20 Pulse Rate 144 H 08/10/17 15:20 Respiratory Rate 20 08/10/17 15:20 Blood Pressure 144/87 08/10/17 15:20 O2 Sat by Pulse Oximetry (%) 99 08/10/17 09:00 Labs: CBC, BMP 08/10/17 06:24 08/10/17 06:24 INR, PTT INR 1.53 (0.82-1.09) H 08/08/17 12:25 Problem List - Problems (1) Elevated troponin Assessment/Plan: midly elevated TNI, with normal CK No acute changes on EKG; AF.with LVH, chronic STT changes. Code(s): R74.8 - ABNORMAL LEVELS OF OTHER SERUM ENZYMES (2) Acute on chronic combined systolic and diastolic CHF, NYHA class 2 Assessment/Plan: Continue hydralazine+isosorbide mononitrate. Start metoprolol ER 12.5 mg qd. Decreased furosemdie to 20 mg daily. On hydralazine + Isordil. F/u BUN/Cr, electrolytes; daily wt; Is and Os. Code(s): I50.43 - ACUTE ON CHRONIC COMBINED SYSTOLIC AND DIASTOLIC HRT FAIL (3) Atrial fibrillation with controlled ventricular response Assessment/Plan: HR has risen; now occasionalyy rapid VR to 144 bpm. Will startr Metoprolol ER 12.5 mg daily; f/u HR and BP (beta blocke also needed for moderately reduced LVEF). On apixaban for AC. Code(s): I48.91 - UNSPECIFIED ATRIAL FIBRILLATION (4) Coronary artery disease Code(s): I25.10 - ATHSCL HEART DISEASE OF [place] CORONARY ARTERY W/O ANG PCTRS Qualifiers: Coronary Disease-Associated Artery/Lesion type: [place] artery [place] vs. transplanted heart: [place] heart Associated angina: with stable angina Qualified Code(s): I25.118 - Atherosclerotic heart disease of [place] coronary artery with other forms of angina pectoris (5) Hypertensive cardiomyopathy Code(s): I11.9 - HYPERTENSIVE HEART DISEASE WITHOUT HEART FAILURE; I42.9 - CARDIOMYOPATHY, UNSPECIFIED Qualifiers: Heart failure presence: with heart failure Qualified Code(s): I11.0 - Hypertensive heart disease with heart failure (6) Chronic kidney disease (CKD) Code(s): N18.9 - CHRONIC KIDNEY DISEASE, UNSPECIFIED Qualifiers: Chronic kidney disease stage: stage 3 (moderate) Qualified Code(s): N18.3 - Chronic kidney disease, stage 3 (moderate) (7) Pulmonary hypertension Code(s): I27.2 - OTHER SECONDARY PULMONARY HYPERTENSION * DO NOT USE *
[2017-08-10] MEDS: METOPROLOL SUCCINATE 25 MG TAB.SR.24H (FP) PO SCH (16:43)
--- NOTE | 2017-08-10 20:14 | PN ---
Physical Exam: SUBJECTIVE: Patient seen and examined at the bedside. Ambulating, in no acute respiratory distress, does not qualify for home oxygen Denies shortness of breath, denies chest pain. OBJECTIVE: Patient for d/c today, but heart rate became elevated in the 140s, will monitor overnight, discharge in a.m. possible Started on Metoprolol by cardiology Patient does not have a PCP Vital Signs Period Temp Pulse Resp BP Sys/Ayala Pulse Ox Last 24 Hr 97.0 F-98.3 F 52-144 18-20 129-205/68-95 99-99 GENERAL: The patient is awake, alert, and fully oriented, in no acute distress. HEAD: Normal with no signs of trauma. EYES: PERRL, extraocular movements intact, sclera anicteric, conjunctiva clear. No ptosis. ENT: Ears normal, nares patent, oropharynx clear without exudates, moist mucous membranes. NECK: Trachea midline, full range of motion, supple. LUNGS: Breath sounds equal, clear to auscultation bilaterally, no wheezes HEART: irregular ABDOMEN: Soft, nontender, nondistended, normoactive bowel sounds, EXTREMITIES: no edema. NEUROLOGICAL: Normal speech, gait not observed. PSYCH: Normal mood, normal affect. SKIN: Surgical chest scar Laboratory Results - last 24 hr 08/10/17 08/10/17 06:24 06:24 WBC 3.9 L RBC 4.53 Hgb 12.3 Hct 39.0 MCV 86.2 MCH 27.2 MCHC 31.6 L RDW 15.9 Plt Count 147 MPV 9.1 Neutrophils % 43.1 Lymphocytes % 42.0 H D Monocytes % 9.2 Eosinophils % 5.0 H Basophils % 0.7 Sodium 143 Potassium 3.4 L Chloride 108 H Carbon Dioxide 25 Anion Gap 10 BUN 19 H Creatinine 1.8 H Creat Clearance w eGFR 36.21 Random Glucose 84 Calcium 7.7 L Magnesium 1.7 L Total Bilirubin 0.7 AST 13 L D ALT 16 Alkaline Phosphatase 118 H Total Protein 6.2 L Albumin 2.8 L Active Medications Generic Name Dose Route Start Last Admin Trade Name Freq PRN Reason Stop Dose Admin Apixaban 5 mg 08/08/17 22:45 08/10/17 08:59 Eliquis - PO 5 mg BID TORIN Administration Atorvastatin Calcium 40 mg 08/08/17 22:00 08/09/17 21:55 Lipitor - PO 40 mg HS TORIN Administration Furosemide 20 mg 08/11/17 10:00 Lasix - PO DAILY TORIN Hydralazine HCl 10 mg 08/10/17 22:00 Apresoline - PO BID TORIN Isosorbide Mononitrate 10 mg 08/09/17 10:00 08/10/17 09:00 Ismo - PO 10 mg DAILY TORIN Administration Metoprolol Succinate 12.5 mg 08/10/17 16:45 08/10/17 16:43 Toprol Xl - PO 12.5 mg DAILY TORIN Administration Valsartan 160 mg 08/09/17 10:00 08/10/17 09:03 Diovan - PO 160 mg BID TORIN Administration ASSESSMENT/PLAN: Patient is a 82 year old male admitted on 08/08/2017 with hypertensive urgency and chf exacerbation. His significant past medical history consists of of CAD> PCI 2007, and CABG late 2016 at [facility], acute on chronic systolic congestive heart failure, chronic kidney disease, permanent atrial fibrillation. pulmonary hypertension who was sent to the ED with complaints of high blood pressure. Patient reports experiencing intermittent episodes of SOB with exertion. Denies chest pain. Denies nausea, vomiting. Denies fevers, chills. Cardiology: Uncontrolled Hypertension, improving BP remains elevated today but improving since admission New home medications: Diovan 160mg PO BID Hydralazine 10mg PO BID Ismosorbide Mononitrate 10mg daily Metoprolol 12.5mg daily Lasix 20mg daily Monitor BP Patient for d/c today, but heart rate rapid in the 140s, started on Metoprolol 12.5mg daily Monitor on tele overnight Cardiology follow up with Dr. Gtz in 1 week. Acute on chronic CHF exacerbation SOB resolved Lasix 20mg dialy for home (decreased from Lasix 40mg daily) Monitor creatinine Cardiology following Respiratory pre and post Pulmonary Shortness of breath, resolved Respiratory pre and post completed, pt does not quality for home oxygen Renal YFN Monitor creatinine Baseline between 1.6-1.7 F.E.N. Fluids: Monitor PO Electrolytes: Monitor cmp Nutrition: low sodium diet Prophylaxis: DVT: Eliquis GI: deferred Discharge tomorrow likely. full code. Visit type - Emergency Visit Emergency Visit: Yes ED Registration Date: 08/08/17 Care time: The patient presented to the Emergency Department on the above date and was hospitalized for further evaluation of their emergent condition. - New Patient This patient is new to me today: No - Critical Care Critical Care patient: No - Discharge Referral Referred to [facility] Med P.C.: No Physician Referral: Beltran Mcclelland MD ([facility]), Brittnee Zavala MD ([facility])
[2017-08-10] MEDS: ATORVASTATIN CA 40 MG TABLET (FP) PO SCH (21:37)
[2017-08-10] MEDS ORDERED: hydrALAZINE HCL 25 MG TABLET (FP) PO SCH (22:00)
[2017-08-11 07:48] LABS: EOS % 4.6 % (0-4.5); HEMOGLOBIN 12.3 GM/dL (11.7-16.9); LYMPH % 44.1 % (8-40); MCH 27.7 pg (25.7-33.7); MCHC 32.3 g/dl (32.0-35.9); MEAN CELL VOLUME 85.8 fl (80-96); MONO % 11.2 % (3.8-10.2); NEUT % 37.1 % (42.8-82.8); PLATELET COUNT 143 K/MM3 (134-434); RBC 4.43 M/mm3 (4.00-5.60); RDW 15.8 % (11.9-15.9)
[2017-08-11 08:23] LABS: ALBUMIN 2.8 g/dl (3.4-5.0); CALCIUM 8.3 mg/dL (8.5-10.1); CHLORIDE 107 mmol/L (98-107); POTASSIUM 3.5 mmol/L (3.5-5.1); SODIUM 143 mmol/L (136-145)
[2017-08-11 08:29] LABS: ALK PHOS 115 U/L (45-117); ANION GAP 9 (8-16); BILIRUBIN,TOTAL 0.5 mg/dL (0.2-1.0); BLOOD UREA NITROGEN 25 mg/dL (7-18); CO2 27 mmol/L (21-32); CREATININE 1.9 mg/dL (0.7-1.3); GLUCOSE,RANDOM 82 mg/dL (74-106); MAGNESIUM 1.8 mg/dL (1.8-2.4); SGOT/AST 11 U/L (15-37); SGPT/ALT 15 U/L (12-78); TOT PROT 6.3 g/dl (6.4-8.2)
[2017-08-11] MEDS: hydrALAZINE HCL 10 MG TABLET PO SCH (09:18)
[2017-08-11] MEDS: VALSARTAN 160 MG TABLET (UD) PO SCH ×2 (09:18→22:33)
[2017-08-11] MEDS: FUROSEMIDE 20 MG TABLET (FP) PO SCH (09:18)
[2017-08-11] MEDS: APIXABAN 5 MG TABLET PO SCH (09:18)
[2017-08-11] MEDS: ISOSORBIDE MONONITRATE 20 MG TABLET PO SCH (09:18)
[2017-08-11] MEDS: METOPROLOL SUCCINATE 25 MG TAB.SR.24H (FP) PO SCH (09:18)
--- NOTE | 2017-08-11 10:13 | PN ---
Progress Note, Physician History of Present Illness: Patient is an 82 year old male with a significant past medical history of CAD-- > PCI 2007, and CABG late 2017 at [email or web address] Acute on chronic systolic congestive heart failure, chronic kidney disease, permanent atrial fibrillation. pulmonary hypertension who was sent to the ED with complaints of high blood pressure. As per EMS patient was referred to the ED by visiting nurse due to high blood pressure. EMS reports nurse states patient is known to be noncompliant with his blood pressure medication. Patient reports experiencing intermittent episodes of SOB with exertion. Denies chest pain. Denies nausea, vomiting. Denies fevers, chill. Denies contact with sick individuals, out of state travelling. Denies any other symptoms. Allergies: Social history: No smoking. No alcohol. No illicit Surgical history: PCI; CABG PMD: None Other: Dr. Perla (Pt has never come to the cardiac office since CABG). - Current Medication List Current Medications: Active Medications Apixaban (Eliquis -) 5 mg PO BID [facility] Last Admin: 08/11/17 09:18 Dose: 5 mg Atorvastatin Calcium (Lipitor -) 40 mg PO HS [facility] Last Admin: 08/10/17 21:37 Dose: 40 mg Furosemide (Lasix -) 20 mg PO DAILY [facility] Last Admin: 08/11/17 09:18 Dose: 20 mg Hydralazine HCl (Apresoline -) 10 mg PO BID [facility] Last Admin: 08/11/17 09:18 Dose: 10 mg Isosorbide Mononitrate (Ismo -) 10 mg PO DAILY [facility] Last Admin: 08/11/17 09:18 Dose: 10 mg Metoprolol Succinate (Toprol Xl -) 12.5 mg PO DAILY [facility] Last Admin: 08/11/17 09:18 Dose: 12.5 mg Valsartan (Diovan -) 160 mg PO BID [facility] Last Admin: 08/11/17 09:18 Dose: 160 mg - Objective Vital Signs: Vital Signs Temperature 98.0 F 08/11/17 08:38 Pulse Rate 74 08/11/17 08:38 Respiratory Rate 18 08/11/17 08:38 Blood Pressure 158/99 08/11/17 08:38 O2 Sat by Pulse Oximetry (%) 96 08/11/17 08:35 Labs: CBC, BMP 08/11/17 06:37 08/11/17 06:37 INR, PTT INR 1.53 (0.82-1.09) H 08/08/17 12:25 Problem List - Problems (1) Elevated troponin Code(s): R74.8 - ABNORMAL LEVELS OF OTHER SERUM ENZYMES (2) Acute on chronic combined systolic and diastolic CHF, NYHA class 2 Assessment/Plan: Continue hydralazine+isosorbide mononitrate; increase hydralaizne to 25 mg bid for HTN (and CHF). Started metoprolol ER 12.5 mg qd. Decreased furosemdie to 20 mg daily. F/u BUN/Cr, electrolytes; daily wt; Is and Os. Code(s): I50.43 - ACUTE ON CHRONIC COMBINED SYSTOLIC AND DIASTOLIC HRT FAIL (3) Atrial fibrillation with controlled ventricular response Code(s): I48.91 - UNSPECIFIED ATRIAL FIBRILLATION (4) Coronary artery disease Code(s): I25.10 - ATHSCL HEART DISEASE OF [place] CORONARY ARTERY W/O ANG PCTRS Qualifiers: Coronary Disease-Associated Artery/Lesion type: [place] artery [place] vs. transplanted heart: [place] heart Associated angina: with stable angina Qualified Code(s): I25.118 - Atherosclerotic heart disease of [place] coronary artery with other forms of angina pectoris (5) Hypertensive cardiomyopathy Code(s): I11.9 - HYPERTENSIVE HEART DISEASE WITHOUT HEART FAILURE; I42.9 - CARDIOMYOPATHY, UNSPECIFIED Qualifiers: Heart failure presence: with heart failure Qualified Code(s): I11.0 - Hypertensive heart disease with heart failure (6) Chronic kidney disease (CKD) Code(s): N18.9 - CHRONIC KIDNEY DISEASE, UNSPECIFIED Qualifiers: Chronic kidney disease stage: stage 3 (moderate) Qualified Code(s): N18.3 - Chronic kidney disease, stage 3 (moderate) (7) Pulmonary hypertension Code(s): I27.2 - OTHER SECONDARY PULMONARY HYPERTENSION * DO NOT USE *
[2017-08-11] MEDS ORDERED: hydrALAZINE HCL 10 MG TABLET PO ONE (10:30)
--- NOTE | 2017-08-11 18:43 | PN ---
Physical Exam: SUBJECTIVE: Patient seen and examined. He had some pinching in his chest earlier , he wants to go home. OBJECTIVE: Vital Signs Period Temp Pulse Resp BP Sys/Ayala Pulse Ox Last 24 Hr 97.5 F-98.7 F 60-74 18-20 139-158/70-99 96-96 PE Neuro: alert, awake, cn 2-12intact Pulm: CTAB CV: s1 s2 irregular rhythm Abd: s nt nd + bs ExT: warm, no le edema Laboratory Results - last 24 hr 08/11/17 08/11/17 06:37 06:37 WBC 4.0 RBC 4.43 Hgb 12.3 Hct 38.0 MCV 85.8 MCH 27.7 MCHC 32.3 RDW 15.8 Plt Count 143 MPV 9.0 Neutrophils % 37.1 L Lymphocytes % 44.1 H Monocytes % 11.2 H Eosinophils % 4.6 H Basophils % 3.0 H D Sodium 143 Potassium 3.5 Chloride 107 Carbon Dioxide 27 Anion Gap 9 BUN 25 H D Creatinine 1.9 H Creat Clearance w eGFR 34.02 Random Glucose 82 Calcium 8.3 L Magnesium 1.8 Total Bilirubin 0.5 D AST 11 L ALT 15 Alkaline Phosphatase 115 Total Protein 6.3 L Albumin 2.8 L Active Medications Generic Name Dose Route Start Last Admin Trade Name Freq PRN Reason Stop Dose Admin Apixaban 5 mg 08/08/17 22:45 08/11/17 09:18 Eliquis - PO 5 mg BID TORIN Administration Atorvastatin Calcium 40 mg 08/08/17 22:00 08/10/17 21:37 Lipitor - PO 40 mg HS TORIN Administration Furosemide 20 mg 08/11/17 10:00 08/11/17 09:18 Lasix - PO 20 mg DAILY TORIN Administration Hydralazine HCl 25 mg 08/11/17 22:00 Apresoline - PO BID TORIN Isosorbide Mononitrate 10 mg 08/09/17 10:00 08/11/17 09:18 Ismo - PO 10 mg DAILY TORIN Administration Metoprolol Succinate 12.5 mg 08/10/17 16:45 08/11/17 09:18 Toprol Xl - PO 12.5 mg DAILY TORIN Administration Valsartan 160 mg 08/09/17 10:00 08/11/17 09:18 Diovan - PO 160 mg BID TORIN Administration Assessment: 82 year old male admitted with hypertensive urgency and chf exacerbation Plan: 1. Hypertensive Urgency - BP elevated - Increase Hydralazine 25mg BID - Diovan 160mg BID - Iso mono 10mg daily 2. Acute on chronic CHF exacerbation - Decrease lasix 20mg daily 3. CKD - Mild rise in cr 4. A fib - Decrease Eliquis 2.5mg BID - Toprol xl 12.5mg daily 5. Hypokalemia - Resolved Problem List - Problems (1) CHF (congestive heart failure) Code(s): I50.9 - HEART FAILURE, UNSPECIFIED Qualifiers: Congestive heart failure type: unspecified congestive heart failure type Congestive heart failure chronicity: acute on chronic (2) Elevated troponin Code(s): R74.8 - ABNORMAL LEVELS OF OTHER SERUM ENZYMES (3) Atrial fibrillation with controlled ventricular response Code(s): I48.91 - UNSPECIFIED ATRIAL FIBRILLATION (4) Coronary artery disease Code(s): I25.10 - ATHSCL HEART DISEASE OF [place] CORONARY ARTERY W/O ANG PCTRS Qualifiers: Coronary Disease-Associated Artery/Lesion type: [place] artery [place] vs. transplanted heart: [place] heart Associated angina: with stable angina Qualified Code(s): I25.118 - Atherosclerotic heart disease of [place] coronary artery with other forms of angina pectoris (5) Hypertensive cardiomyopathy Code(s): I11.9 - HYPERTENSIVE HEART DISEASE WITHOUT HEART FAILURE; I42.9 - CARDIOMYOPATHY, UNSPECIFIED Qualifiers: Heart failure presence: with heart failure Qualified Code(s): I11.0 - Hypertensive heart disease with heart failure (6) Hypokalemia Code(s): E87.6 - HYPOKALEMIA (7) Chronic kidney disease (CKD) Code(s): N18.9 - CHRONIC KIDNEY DISEASE, UNSPECIFIED Qualifiers: Chronic kidney disease stage: stage 3 (moderate) Qualified Code(s): N18.3 - Chronic kidney disease, stage 3 (moderate) (8) Pulmonary hypertension Code(s): I27.2 - OTHER SECONDARY PULMONARY HYPERTENSION * DO NOT USE * (9) S/P coronary artery stent placement Code(s): Z95.5 - PRESENCE OF CORONARY ANGIOPLASTY IMPLANT AND GRAFT Visit type - Emergency Visit Emergency Visit: Yes ED Registration Date: 08/08/17 Care time: The patient presented to the Emergency Department on the above date and was hospitalized for further evaluation of their emergent condition. - New Patient This patient is new to me today: No - Critical Care Critical Care patient: No
[2017-08-11] MEDS ORDERED: APIXABAN 5 MG TABLET PO SCH (18:48)
[2017-08-11] MEDS: ATORVASTATIN CA 40 MG TABLET (FP) PO SCH (22:33)
[2017-08-11] MEDS: APIXABAN 2.5 MG TABLET PO SCH (22:34)
[2017-08-11] MEDS: hydrALAZINE HCL 25 MG TABLET (FP) PO SCH (22:34)
[2017-08-12 07:31] LABS: ANION GAP 9 (8-16); BLOOD UREA NITROGEN 27 mg/dL (7-18); CALCIUM 8.3 mg/dL (8.5-10.1); CHLORIDE 108 mmol/L (98-107); CO2 26 mmol/L (21-32); CREATININE 1.8 mg/dL (0.7-1.3); GLUCOSE,RANDOM 93 mg/dL (74-106); POTASSIUM 3.5 mmol/L (3.5-5.1); SODIUM 143 mmol/L (136-145)
--- NOTE | 2017-08-12 07:43 | DS ---
Physical Exam: SUBJECTIVE: Patient seen and examined. Denies chest pain, eager to go home OBJECTIVE: Vital Signs Period Temp Pulse Resp BP Sys/Ayala Pulse Ox Last 24 Hr 97.6 F-98.2 F 64-74 18-20 118-158/48-99 96-97 PE Neuro: alert, awake, cn 2-12intact Pulm: CTAB CV: s1 s2 irregular rhythm Abd: s nt nd + bs ExT: warm, no le edema Laboratory Results - last 24 hr 08/11/17 08/11/17 08/12/17 06:37 06:37 06:16 WBC 4.0 RBC 4.43 Hgb 12.3 Hct 38.0 MCV 85.8 MCH 27.7 MCHC 32.3 RDW 15.8 Plt Count 143 MPV 9.0 Neutrophils % 37.1 L Lymphocytes % 44.1 H Monocytes % 11.2 H Eosinophils % 4.6 H Basophils % 3.0 H D Sodium 143 143 Potassium 3.5 3.5 Chloride 107 108 H Carbon Dioxide 27 26 Anion Gap 9 9 BUN 25 H D 27 H Creatinine 1.9 H 1.8 H Creat Clearance w eGFR 34.02 Random Glucose 82 93 Calcium 8.3 L 8.3 L Magnesium 1.8 Total Bilirubin 0.5 D AST 11 L ALT 15 Alkaline Phosphatase 115 Total Protein 6.3 L Albumin 2.8 L HOSPITAL COURSE: Date of Admission:08/08/17 Date of Discharge: 08/12/17 Minutes to complete discharge: 37 Discharge Summary Reason For Visit: CHF,ELEVATED TROPONIN LEVEL Current Active Problems CHF (congestive heart failure) (Acute) Elevated troponin (Acute) Hospital Course: Initial Hospital Course: Briefly, this 82 year old male with pmhx systolic CHF, CAD, s/p pci 2007, CKD, A fib, pulm HTN, CABG 06/2017 @ [place] with Dr. Camargo who was sent to ED by his visiting nurse for elevated BP. Per ED record known to be med non compliant. Patient endorsed some increase fluid in lower ext, however he has no overt edema. Subsequent Hospital Course/Progress Note/DC summary: Assessment: 82 year old male admitted with hypertensive urgency and chf exacerbation Plan: 1. Hypertensive Urgency - Stable - Increased Hydralazine 25mg BID - Diovan 160mg BID - Iso mono 10mg daily 2. Acute on chronic systolic CHF exacerbation - Decrease lasix 20mg daily - Hydralazine added to iso mono regimen 3. CKD - Stable on DC 4. A fib - Decrease Eliquis 2.5mg BID - Toprol xl 12.5mg daily 5. Hypokalemia - Resolved Dispo: - DC home with above referrals and medications Condition: Stable - Instructions Diet, Activity, Other Instructions: Senor Ankit: Por favor de hacer angelo geraldine con villavicencio doctor primario y con Dr. Gtz en angelo semana. Nueva medicina para mario presion sanguinea:: Hydralazine 25mg dos veces por ofe at 8am y 8pm Diovan 160mg dos veces per el ofe Lasix 20mg angelo vez a el ofe Isosorbide 10mg angelo vez a el ofe Metoprolol 12.5 mg angelo vez a el ofe Eliquis 2.5mg dos veces por ofe Please make an appointment to see your primary care doctor and Dr. Gtz in one week for followup. New medications for high blood pressure: Hydralazine 25mg twice daily Diovan 160mg twice per day Lasix 20mg once daily Isosorbide 10mg daily Metoprolol 12.5 mg daily Continue taking Eliquis 2.5mg twice per day. A new primary care doctor has been assigned to you (Dr. Nicko Riley). Please make an appointment for follow up with 1 week after discharge. Referrals: Brittnee Zavala MD [Staff Physician] - 1 Week Pritesh Nagel MD [Staff Physician] - 1 Week Disposition: HOME - Home Medications Comprehensive Discharge Medication List: Ambulatory Orders Atorvastatin Ca [Lipitor] 40 mg PO HS #30 tablet 06/04/17 Potassium Chloride [K-Dur -] 20 meq PO DAILY #5 tablet.er 06/04/17 Furosemide [Lasix -] 20 mg PO DAILY #30 tablet 08/10/17 Isosorbide Mononitrate 10 mg PO DAILY #30 tablet 08/10/17 Metoprolol Succinate [Toprol XL -] 12.5 mg PO DAILY #30 tab.sr.24h 08/10/17 Valsartan [Diovan] 160 mg PO BID #60 tablet 08/10/17 Apixaban [Eliquis -] 2.5 mg PO BID #60 tablet 08/12/17 Hydralazine HCl [Apresoline -] 25 mg PO BID #60 tablet 08/12/17 Problem List - Problems (1) CHF (congestive heart failure) Code(s): I50.9 - HEART FAILURE, UNSPECIFIED Qualifiers: Congestive heart failure type: unspecified congestive heart failure type Congestive heart failure chronicity: acute on chronic (2) Elevated troponin Code(s): R74.8 - ABNORMAL LEVELS OF OTHER SERUM ENZYMES (3) Atrial fibrillation with controlled ventricular response Code(s): I48.91 - UNSPECIFIED ATRIAL FIBRILLATION (4) Coronary artery disease Code(s): I25.10 - ATHSCL HEART DISEASE OF [place] CORONARY ARTERY W/O ANG PCTRS Qualifiers: Coronary Disease-Associated Artery/Lesion type: [place] artery [place] vs. transplanted heart: [place] heart Associated angina: with stable angina Qualified Code(s): I25.118 - Atherosclerotic heart disease of [place] coronary artery with other forms of angina pectoris (5) Hypertensive cardiomyopathy Code(s): I11.9 - HYPERTENSIVE HEART DISEASE WITHOUT HEART FAILURE; I42.9 - CARDIOMYOPATHY, UNSPECIFIED Qualifiers: Heart failure presence: with heart failure Qualified Code(s): I11.0 - Hypertensive heart disease with heart failure (6) Hypokalemia Code(s): E87.6 - HYPOKALEMIA (7) Chronic kidney disease (CKD) Code(s): N18.9 - CHRONIC KIDNEY DISEASE, UNSPECIFIED Qualifiers: Chronic kidney disease stage: stage 3 (moderate) Qualified Code(s): N18.3 - Chronic kidney disease, stage 3 (moderate) (8) Pulmonary hypertension Code(s): I27.2 - OTHER SECONDARY PULMONARY HYPERTENSION * DO NOT USE * (9) S/P coronary artery stent placement Code(s): Z95.5 - PRESENCE OF CORONARY ANGIOPLASTY IMPLANT AND GRAFT This patient is new to me today: No Emergency Visit: Yes ED Registration Date: 08/08/17 Care time: The patient presented to the Emergency Department on the above date and was hospitalized for further evaluation of their emergent condition. Critical Care patient: No - Discharge Referral Referred to [facility] Yes Physician Referral: Brittnee Zavala MD ([facility])
[2017-08-12] MEDS ORDERED: PT OWN MED DRAWER 7, Y5N ONE (08:06)
[2017-08-12] MEDS: METOPROLOL SUCCINATE 25 MG TAB.SR.24H (FP) PO SCH (08:42)
[2017-08-12] MEDS: FUROSEMIDE 20 MG TABLET (FP) PO SCH (08:42)
[2017-08-12] MEDS: hydrALAZINE HCL 25 MG TABLET (FP) PO SCH (08:42)
[2017-08-12] MEDS: APIXABAN 2.5 MG TABLET PO SCH (08:42)
[2017-08-12] MEDS: VALSARTAN 160 MG TABLET (UD) PO SCH (08:43)
[2017-08-12] MEDS: ISOSORBIDE MONONITRATE 20 MG TABLET PO SCH (08:45)
[2017-08-12 13:01] VITALS: BP 160/84; PULSE 64; TEMP 98.4
== END 2017-08-12 12:04 | disposition home or self-care (01) | DRG 291 ==
LOC: JER 11:46 → JERBED 15:14 → J4W 21:14
PROVIDERS: ADMIT Internal Medicine; ATTEND Nurse Practitioner Acute Care
DX: I13.0 Hypertensive heart and chronic kidney disease with heart failure and stage 1 through stage 4 chronic kidney disease, or unspecified chronic kidney disease (principal); I50.23 Acute on chronic systolic (congestive) heart failure; N17.9 Acute kidney failure, unspecified; I16.0 Hypertensive urgency; N18.3 Chronic kidney disease, stage 3 (moderate); I27.20 Pulmonary hypertension, unspecified; R74.8 Abnormal levels of other serum enzymes; I25.10 Atherosclerotic heart disease of native coronary artery without angina pectoris; E87.6 Hypokalemia; I48.91 Unspecified atrial fibrillation; Z95.1 Presence of aortocoronary bypass graft; Z95.5 Presence of coronary angioplasty implant and graft
CPT/HCPCS: 36415; 71045-TC; 80048; 80053; 80061; 82550; 83721; 83735; 83880; 84100; 84443; 84484; 85025; 85610; 93005; 93010; 93306-TC; 94761; 99284-25

== ENCOUNTER 2017-11-24 01:41 | Inpatient (IN) | payer OTHER ==
--- NOTE | 2017-11-24 01:54 | PDOC ---
History of Present Illness - General Chief Complaint: Shortness of Breath Stated Complaint: DIFFICULTY BREATHING Time Seen by Provider: 11/24/17 01:54 - History of Present Illness Initial Comments: 82 year old male with pmh of systolic CHF, CAD, s/p pci 2007, CKD, A fib, pulm HTN, CABG 06/2017 (@ [place] with Dr. Camargo) presenting to the ED via EMS with difficulty breathing. He has questionable medication compliance per his past notes. EMS on scene states his O2 was 97% on RA but still subjectively SOB. His symptoms improved after being place don 2L NC. Denies any nausea, vomiting, fevers, chills, cough, lyly ther issues. According to previous notes he has a home nursing aid. He was admitted 4 months prior for hypertensive urgency and chf exacerbation. During that visit they increased his Hydralazine to 25mg BID, Diovan 160mg BID, Iso mono 10mg daily, decreased lasix 20mg daily, Hydralazine added to iso mono regimen, decreased Eliquis 2.5mg BID, and Toprol xl 12.5mg daily. The patient brought a bag of his medications with him to the ED and Diovan was not in there. States he is only taking the medications in that bag. PCP is Dr. Nhung [facility]anco in [facility]. 11/24/17 01:56 Past History - Past Medical History Allergies/Adverse Reactions: Allergies Allergy/AdvReac Type Severity Reaction Status Date / Time No Known Allergies Allergy Verified 11/24/17 01:51 Home Medications: Ambulatory Orders Atorvastatin Ca [Lipitor] 40 mg PO HS #30 tablet 06/04/17 Valsartan [Diovan] 160 mg PO BID #60 tablet 08/10/17 hydrALAZINE HCL [Apresoline -] 25 mg PO BID #60 tablet 08/12/17 Carvedilol [Coreg] 6.25 mg PO BID 11/24/17 Isosorbide Mononitrate 30 mg PO DAILY 11/24/17 Metoprolol Succinate [Toprol XL -] 25 mg PO DAILY 11/24/17 Spironolactone [Aldactone] 25 mg PO DAILY 11/24/17 Anemia: No Asthma: No Cancer: No Cardiac Disorders: Yes CVA: No COPD: No CHF: Yes Dementia: No Diabetes: No GI Disorders: No Disorders: No HTN: Yes Hypercholesterolemia: Yes Liver Disease: No Seizures: No Thyroid Disease: No - Surgical History Abdominal Surgery: No Appendectomy: No Cardiac Surgery: Yes (stent) Cholecystectomy: No Lung Surgery: No Neurologic Surgery: No Orthopedic Surgery: No - Immunization History Immunization Up to Date: Yes - Suicide/Smoking/Psychosocial Hx Smoking History: Never smoked Have you smoked in the past 12 months: No Information on smoking cessation initiated: No Hx Alcohol Use: No Drug/Substance Use Hx: No Substance Use Type: None Hx Substance Use Treatment: No Review of Systems - Review of Systems Constitutional: No: Chills, Diaphoresis, Fever, Loss of Appetite HEENTM: No: Eye Pain, Double Vision Respiratory: Yes: Shortness of Breath. No: Cough, Wheezing, Productive cough Cardiac (ROS): No: Chest Pain, Edema ABD/GI: No: Diarrhea, Nausea, Vomiting : No: Dysuria, Discharge, Incontinence Musculoskeletal: No: Back Pain, Gout Integumentary: No: Bruising, Lesions, Lumps Neurological: No: Headache, Numbness, Paresthesia *Physical Exam - Vital Signs Last Vital Signs Temp Pulse Resp BP Pulse Ox 97.6 F 61 18 180/113 99 11/24/17 01:51 11/24/17 01:51 11/24/17 01:51 11/24/17 01:51 11/24/17 01:51 - Physical Exam General Appearance: Yes: Nourished, Appropriately Dressed. No: Apparent Distress HEENT: positive: EOMI, EDILMA, Normal ENT Inspection, Normal Voice Neck: positive: Trachea midline, Normal Thyroid, Supple. negative: Tender, Rigid Respiratory/Chest: positive: Wheezing (bilateral faint wheezes). negative: Chest Tender, Lungs Clear, Normal Breath Sounds, Respiratory Distress, Accessory Muscle Use Cardiovascular: positive: JVD, Irregularly Irregular. negative: Edema Gastrointestinal/Abdominal: positive: Normal Bowel Sounds, Flat, Soft. negative : Tender Musculoskeletal: positive: Normal Inspection. negative: CVA Tenderness Extremity: positive: Normal Capillary Refill, Normal Inspection, Normal Range of Motion Integumentary: positive: Normal Color, Dry, Warm Neurologic: positive: Fully Oriented, Alert, Normal Mood/Affect, Normal Response ED Treatment Course - LABORATORY CBC & Chemistry Diagram: 11/24/17 02:35 11/24/17 02:35 Medical Decision Making - Medical Decision Making 82 year old male presenting with subjective shortness of breath but sating well on RA. Patient states he has lung problems in the past and needs home oxygen but was never prescribed any. His lung exam improved with some nebulizer treatments and steroids. His CXR, BNP, and JVD corroborate fluid overload although his BNP has been higher in the past. Creatinine elevated so will defer lasix to admitting team as he has a stable respiratory status. Will admit patient for tele admission and CHF exacerbation and shortness of breath. 11/24/17 05:06 Patient's pressures came back up from 180s to 210s. Given two more sublingual nitro and pressures returned to 180s. Patient seems to be very confused regarding his medications and will need clarification on admission. 11/24/17 05:19 *DC/Admit/Observation/Transfer Diagnosis at time of Disposition: CHF (congestive heart failure) Qualifiers: Heart failure type: unspecified Heart failure chronicity: acute Qualified Code( s): I50.9 - Heart failure, unspecified - Discharge Dispostion Condition at time of disposition: Stable Admit: Yes - Referrals - Patient Instructions - Post Discharge Activity
[2017-11-24] MEDS ORDERED: VALSARTAN 160 MG TABLET (UD) PO ONE ×2 (02:31→02:40)
[2017-11-24] MEDS ORDERED: VALSARTAN 80 MG TABLET (UD) ONE (02:37)
[2017-11-24] MEDS ORDERED: NITROGLYCERIN 2% OINTMENT - 1GM PACKET TD ONE ×3 (02:40→05:30)
[2017-11-24] MEDS ORDERED: NITROGLYCERIN SUBLINGUAL 1/200 0.3 MG BTL SL ONE ×3 (02:40→05:19)
[2017-11-24 03:21] LABS: BASO % 1.2 % (0-2.0); EOS % 5.7 % (0-4.5); HEMATOCRIT 33.9 % (35.4-49); HEMOGLOBIN 11.1 GM/dL (11.7-16.9); MCH 27.6 pg (25.7-33.7); MCHC 32.6 g/dl (32.0-35.9); MEAN CELL VOLUME 84.6 fl (80-96); MEAN PLT VOLUME 9.1 fl (7.5-11.1); MONO % 10.7 % (3.8-10.2); NEUT % 52.4 % (42.8-82.8); PLATELET COUNT 116 K/MM3 (134-434); RBC 4.01 M/mm3 (4.00-5.60); RDW 18.1 % (11.9-15.9); WHITE BLOOD COUNT 3.7 K/mm3 (4.0-10.0)
[2017-11-24 03:43] LABS: ALBUMIN 3.1 g/dl (3.4-5.0); ANION GAP 6 (8-16); BILIRUBIN,TOTAL 0.5 mg/dL (0.2-1.0); BLOOD UREA NITROGEN 29 mg/dL (7-18); CHLORIDE 116 mmol/L (98-107); CO2 23 mmol/L (21-32); CREATININE 2.1 mg/dL (0.7-1.3); GLUCOSE,RANDOM 98 mg/dL (74-106); POTASSIUM 4.1 mmol/L (3.5-5.1); SGOT/AST 32 U/L (15-37); SGPT/ALT 28 U/L (12-78); SODIUM 145 mmol/L (136-145); TOT PROT 6.5 g/dl (6.4-8.2)
[2017-11-24 03:57] LABS: ALK PHOS 134 U/L (45-117); N-TERMINAL BNP 12518.17 pg/ml (5-450)
--- NOTE | 2017-11-24 04:14 | PDOC ---
Attending Attestation - Resident Resident Name: JudiLauriewagnerfeliberto - ED Attending Attestation I have performed the following: I have examined & evaluated the patient, The case was reviewed & discussed with the resident, I agree w/resident's findings & plan - HPI HPI: 11/24/17 06:33 Pt comes with SOB and HTN that is poorly controlled. He has multiple HTN meds from multiple practitioners. Pt doesn't know what meds he needs to be on. STates that he had a CABG at [facility] 2 mos ago. Pt has no chest pain. JUST SOB. - Physicial Exam PE: 11/24/17 06:35 Agree with resident exam. Pt's HR is 50s. BP is 200 systolic. Pt will be treated with nitrates and diovan, which he was prescribed the last time that he was here, but he never picked up the meds. - Medical Decision Making 11/24/17 06:35 Admit patient to telemetry for observation and assessment. Pt will require an overhaul of all his BP meds. Prior to discharge pt needs HTN education and he needs to understand what meds he needs to take and what meds he needs to fill at the pharmacy. <Brigitte Quinteros - Last Filed: 11/24/17 06:37> Heart Score/ECG Review - ECG Intrepretation Comment:: 11/24/17 04:21 Completed @2:37:45 Atrial fibrilliation with slow ventricular response Cannot rule out inferior infarct, age undetermined Cannot rule out anterior infarct, age undetermined ST & T wave abnormality, consider lateral ischemia Abnormal ECG Vent. rate 59 bpm MO interval * ms QRS duration 92 ms <Oracio Doan - Last Filed: 11/24/17 04:21>
[2017-11-24] MEDS ORDERED: ASPIRIN 81 MG CHEWABLE TABLETS PO ONE (04:49)
[2017-11-24 04:52] LABS: URINE APPEARANCE CLEAR; URINE BILIRUBIN NEGATIVE (<2.0 mg/dL); URINE COLOR YELLOW; URINE GLUCOSE (UA) NEGATIVE (NEGATIVE); URINE KETONE NEGATIVE (NEGATIVE); URINE LEUK ESTERASE NEGATIVE (NEGATIVE); URINE NITRITE NEGATIVE (NEGATIVE); URINE UROBILINOGEN NEGATIVE mg/dL (0.2-1.0)
[2017-11-24] MEDS ORDERED: methylPREDNISolone NA SUCC 125 MG/2 ML VIAL IVPUSH ONE (04:52)
[2017-11-24] MEDS ORDERED: ALBUTEROL SO4 2.5/IPRATROPIUM 0.5 INH SOL 3 ML VIAL.NEB. NEB ONE ×3 (04:52→04:55)
[2017-11-24] MEDS ORDERED: methylPREDNISolone NA SUCC 125 MG/2 ML VIAL ONE (04:56)
[2017-11-24 04:58] LABS: URINE PROTEIN 2+ (NEGATIVE)
[2017-11-24 05:13] LABS: URINE HYALINE CAST 6 /lpf
[2017-11-24] MEDS ORDERED: ASPIRIN 81 MG CHEWABLE TABLETS ONE (05:22)
--- NOTE | 2017-11-24 06:14 | PN ---
Teaching Attending Note Name of Resident: Tiffani Davis ATTENDING PHYSICIAN STATEMENT I saw and evaluated the patient. Chart, data, imaging reviewed. I reviewed the resident's note and discussed the case with the resident. I agree with the resident's findings and plan as documented. SUBJECTIVE: 82 yo M with pmh of systolic CHF, CAD, s/p pci 2007, CKD, A fib, pulm HTN, CABG 06/2017 (@ [place] with Dr. Camargo), c/o SOB since 11/23 at night. Patient reported orthopnea, and some cough with whitish sputum. There is also some decreased exercise tolerance. He denied any chest pain, fevers, chill, or significant changes in weight. Patient stopped taking his NOAC by himself since he couldnt get from pharmacy. OBJECTIVE: Last Vital Signs Temp Pulse Resp BP Pulse Ox 97.6 F 61 18 180/113 99 11/24/17 01:51 11/24/17 01:51 11/24/17 01:51 11/24/17 01:51 11/24/17 01:51 general- nad, aaox3, nontoxic appearing heent- moist oral mucosa neck -JVD+ b/l cv-s1+s2+rrr, no murmurs chest- bibasilar crackles appreciated abdomen- soft, nt, no ext- 1+ edema on shins Abnormal Lab Results 11/24/17 11/24/17 11/24/17 02:35 02:35 04:35 WBC 3.7 L Hgb 11.1 L Hct 33.9 L RDW 18.1 H D Plt Count 116 L Monocytes % 10.7 H Eosinophils % 5.7 H Chloride 116 H Anion Gap 6 L BUN 29 H Creatinine 2.1 H Calcium 8.0 L Alkaline Phosphatase 134 H Troponin I 1.21 H* D B-Natriuretic Peptide 56471.17 H Albumin 3.1 L Urine Protein 2+ H CXR- reviewed by me, b/l pulm edema EKG- no acute st -t changes ASSESSMENT AND PLAN: #82yo man with acute shortness of breath and orthopnea and physical exam on acute CHF exacerbation. Elevated troponin likely elevated from CHF exacerbation and renal insufficiency. Probable less likely active ACS. -admit to telemetry -trend troponin -ASA 325mg PO -Bblocker -ACEi -furosemide 40mg IV q12hrs -2g Na diet -daily weights -i/o -1L fluid restriction -supplemental oxygen via nasal cannula -elevate head of bed -cardiology evaluation #Afib-rate controlled -continue NOAC , will also prophylax against dvt continue daily home meds
--- NOTE | 2017-11-24 06:19 | HP ---
CHIEF COMPLAINT: "i have trouble breathing" PCP Dr. Nhung Polanco HISTORY OF PRESENT ILLNESS: This is an 82 yo M with pmh of systolic CHF, CAD, s/p pci 2007, CKD, A fib, pulm HTN, CABG 06/2017 (@ [place] with Dr. Camargo), who bibems due to subjective sob (not hypoxic) x 2d. He reports orthopnea and decreased exercise tolerance but denies cp, cough, appetite change or peripheral edema. He is known to be noncompliant with medications, however states he has been taking all his pills except for diovan and eliquis, which he has not taken for several weeks because the eliquis dose was doubled to 5 bid and his pharmacy did not have it. Its unknown why he is not taking diovan. Last admission for chf exacerbation and HTN urgency was 4 mo ago. during last admission his med list was Hydralazine to 25mg BID, Diovan 160mg BID, Iso mono 10mg daily, decreased lasix 20mg daily, Hydralazine added to iso mono regimen, decreased Eliquis 2.5mg BID, and Toprol xl 12.5mg daily. He is no longer sob on exam after being placed on 2l NC. He reports normal urination habits. He denies h/a, f/c, n/v/d, dysuria, melena, hematochezia. Last TTE 08/09: moderately reduced EF, mod TR, RVP 40 mmgh ER course was notable for: (1)labs (2)EKG: afib 59, old inferior, anterior infarcs, lateral t inversions, skipped beat. no change from prior. CXR b/l congestion slightly worse than prior (3)diovan, ntg, medrol, albuterol Recent Travel: denies PAST MEDICAL HISTORY: as above PAST SURGICAL HISTORY: as above Social History: used to have vns Smoking: denies Alcohol:denies Drugs: denies Family History: htn Allergies No Known Allergies Allergy (Verified 11/24/17 01:51) HOME MEDICATIONS: Home Medications Medication Instructions Recorded Atorvastatin Ca [Lipitor] 40 mg PO HS #30 tablet 06/04/17 Valsartan [Diovan] 160 mg PO BID #60 tablet 08/10/17 hydrALAZINE HCL [Apresoline -] 25 mg PO BID #60 tablet 08/12/17 Carvedilol [Coreg] 6.25 mg PO BID 11/24/17 Isosorbide Mononitrate 30 mg PO DAILY 11/24/17 Metoprolol Succinate [Toprol XL -] 25 mg PO DAILY 11/24/17 Spironolactone [Aldactone] 25 mg PO DAILY 11/24/17 REVIEW OF SYSTEMS CONSTITUTIONAL: Absent: fever, chills, weight change HEENT: Absent: rhinorrhea, nasal congestion, throat pain CARDIOVASCULAR: Absent: chest pain, syncope, palpitations, lightheadedness, peripheral edema RESPIRATORY: Absent: cough, wheezing, stridor, hemoptysis GASTROINTESTINAL: Absent: abdominal pain, abdominal distension, nausea, vomiting, diarrhea, constipation, melena, hematochezia GENITOURINARY: Absent: dysuria MUSCULOSKELETAL: Absent: back pain, neck pain SKIN: Absent: rash HEMATOLOGIC/IMMUNOLOGIC: Absent: easy bleeding, easy bruising ENDOCRINE: Absent: unexplained weight gain, unexplained weight loss, heat intolerance, cold intolerance NEUROLOGIC: Absent: headache, focal weakness or paresthesias PSYCHIATRIC: Absent: anxiety, depression PHYSICAL EXAMINATION Vital Signs - 24 hr 11/24/17 01:51 Temperature 97.6 F Pulse Rate 61 Respiratory 18 Rate Blood Pressure 180/113 O2 Sat by Pulse 99 Oximetry (%) GENERAL: Awake, alert, and fully oriented, in no acute distress. HEAD: Normal with no signs of trauma. EYES: Pupils equal, round and reactive to light, extraocular movements intact, sclera anicteric, conjunctiva clear. No lid lag. EARS, NOSE, THROAT: Moist mucous membranes. NECK: supple + JVD LUNGS: bibasilar ronchi HEART: Regular rate and rhythm, normal S1 and S2 grade 1 systolic and diastolic murmur ABDOMEN: Soft, nontender, not distended, normoactive bowel sounds, no guarding, no rebound, no masses. MUSCULOSKELETAL: No CVA tenderness. UPPER EXTREMITIES: 2+ pulses, No peripheral edema. LOWER EXTREMITIES: 2+ pulses, warm, well-perfused. No calf tenderness. No peripheral edema. NEUROLOGICAL: Cranial nerves II-XII grossly intact. Normal speech. PSYCHIATRIC: Cooperative. Good eye contact. Appropriate mood and affect. SKIN: Warm, dry Laboratory Results - last 24 hr 11/24/17 11/24/17 11/24/17 02:35 02:35 04:35 WBC 3.7 L RBC 4.01 Hgb 11.1 L Hct 33.9 L MCV 84.6 MCH 27.6 MCHC 32.6 RDW 18.1 H D Plt Count 116 L MPV 9.1 Neutrophils % 52.4 D Lymphocytes % 30.0 D Monocytes % 10.7 H Eosinophils % 5.7 H Basophils % 1.2 Sodium 145 Potassium 4.1 Chloride 116 H Carbon Dioxide 23 Anion Gap 6 L BUN 29 H Creatinine 2.1 H Creat Clearance w eGFR 30.31 Random Glucose 98 Calcium 8.0 L Total Bilirubin 0.5 AST 32 D ALT 28 D Alkaline Phosphatase 134 H Creatine Kinase 91 Troponin I 1.21 H* D B-Natriuretic Peptide 95768.17 H Total Protein 6.5 Albumin 3.1 L Urine Color Yellow Urine Appearance Clear Urine pH 6.0 Ur Specific [place] 1.018 Urine Protein 2+ H Urine Glucose (UA) Negative Urine Ketones Negative Urine Blood Negative Urine Nitrite Negative Urine Bilirubin Negative Urine Urobilinogen Negative Ur Leukocyte Esterase Negative Urine WBC (Auto) <1 Urine RBC (Auto) 1 Hyaline Casts 6 ASSESSMENT/PLAN: This is an 82 yo M with pmh of systolic CHF, CAD, s/p pci 2007, CKD, A fib, pulm HTN, CABG 06/2017 (@ [place] with Dr. Camargo), who bibems due to subjective sob (not hypoxic) x 2d. Acute on chronic CHF exacerbation s/p recent CABG -volume overloaded; Lasix IV 40 bid -Last TTE 08/09: post op, moderately reduced EF, mod TR, RVP 40 mmgh; repeat -ekg no change from prior -trop 1.2 due to failure: trend; bnp 16099 -resume home bb, arb, ismo, aldactone, hydralazine -entresto cadidate instead of arb -asa 81 d -2l NC, nebs prn -strict i and o, daily weights -tele monitoring -Na restriction -cardio consult Pulm HTN -likely caused by L heart failure; above treatment of LV failure will improve symptoms. A fib -rate controlled -resume eliquis, 2.5 bid indicated based on age and creat mild YFN on CKD cret 2.1 from 1.8, likely prerenal due to vol overload; expect improvement with diuresis. safe to resume home arb and diuretics. HTN -180 systolic due to vol overload; manage as above (evenual goal <120 systolic) FEN fluid restrict f/u lytes Mag, phos k Na restriced diet eliquis adm tele Problem List - Problem (1) CHF (congestive heart failure) Code(s): I50.9 - HEART FAILURE, UNSPECIFIED Qualifiers: Heart failure type: unspecified Heart failure chronicity: acute Qualified Code(s): I50.9 - Heart failure, unspecified (2) Acute on chronic combined systolic and diastolic CHF, NYHA class 2 Code(s): I50.43 - ACUTE ON CHRONIC COMBINED SYSTOLIC AND DIASTOLIC HRT FAIL (3) Acute on chronic diastolic CHF (congestive heart failure) Code(s): I50.33 - ACUTE ON CHRONIC DIASTOLIC (CONGESTIVE) HEART FAILURE (4) Atrial fibrillation with controlled ventricular response Code(s): I48.91 - UNSPECIFIED ATRIAL FIBRILLATION (5) Coronary artery disease Code(s): I25.10 - ATHSCL HEART DISEASE OF [place] CORONARY ARTERY W/O ANG PCTRS Qualifiers: Coronary Disease-Associated Artery/Lesion type: [place] artery [place] vs. transplanted heart: [place] heart Associated angina: with stable angina Qualified Code(s): I25.118 - Atherosclerotic heart disease of [place] coronary artery with other forms of angina pectoris (6) Elevated troponin Code(s): R74.8 - ABNORMAL LEVELS OF OTHER SERUM ENZYMES (7) Hypertensive cardiomyopathy Code(s): I11.9 - HYPERTENSIVE HEART DISEASE WITHOUT HEART FAILURE; I42.9 - CARDIOMYOPATHY, UNSPECIFIED Qualifiers: Heart failure presence: with heart failure Qualified Code(s): I11.0 - Hypertensive heart disease with heart failure (8) Chronic kidney disease (CKD) Code(s): N18.9 - CHRONIC KIDNEY DISEASE, UNSPECIFIED Qualifiers: Chronic kidney disease stage: stage 3 (moderate) Qualified Code(s): N18.3 - Chronic kidney disease, stage 3 (moderate) (9) Pulmonary hypertension Code(s): I27.2 - OTHER SECONDARY PULMONARY HYPERTENSION * DO NOT USE * (10) Tricuspid regurgitation Code(s): I07.1 - RHEUMATIC TRICUSPID INSUFFICIENCY (11) Acute kidney injury Code(s): N17.9 - ACUTE KIDNEY FAILURE, UNSPECIFIED Visit type - Emergency Visit Emergency Visit: Yes ED Registration Date: 11/24/17 Care time: The patient presented to the Emergency Department on the above date and was hospitalized for further evaluation of their emergent condition. - New Patient This patient is new to me today: Yes Date on this admission: 11/24/17 - Critical Care Critical Care patient: No Hospitalist Screening - Colonoscopy Questionnaire Colonoscopy Questionnaire: Colonoscopy Questionnaire - Patient: 50 - 75 years old and never had a screening colonoscopy: No History of colon or rectal polyps, or CA: No History of IBD, Crohn's disease or UC: No History of abdominal radiation therapy as a child: No - Relative: 1 with colon or rectal CA, or polyps at age 60 or younger: No Colon or rectal CA diagnosed at age 45 or younger: No Multiple relatives with colon or rectal CA: No - Outcome: Screening Result: Negative Screen
[2017-11-24] MEDS ORDERED: ALBUTEROL SO4 0.083% IH SOL 2.5 MG/3 ML VIAL.NEB. NEB PRN (06:22)
[2017-11-24] MEDS: FUROSEMIDE 40 MG/4 ML INJECTABLE VIAL IVPUSH SCH ×2 (07:04→14:30)
[2017-11-24] MEDS ORDERED: FUROSEMIDE 40 MG/4 ML INJECTABLE VIAL ONE (07:05)
[2017-11-24] MEDS ORDERED: methylPREDNISolone NA SUCC 125 MG/2 ML VIAL IVPUSH SCH (10:00)
[2017-11-24] MEDS ORDERED: APIXABAN 5 MG TABLET PO SCH (10:00)
[2017-11-24] MEDS: VALSARTAN 160 MG TABLET (UD) PO SCH ×2 (10:09→22:36)
[2017-11-24] MEDS: hydrALAZINE HCL 25 MG TABLET (FP) PO SCH ×2 (10:09→22:36)
[2017-11-24] MEDS: ISOSORBIDE MONONITRATE 30 MG TAB.SR.24H (FP) PO SCH (10:09)
[2017-11-24] MEDS: CARVEDILOL 6.25 MG TABLET (FP) PO SCH ×2 (10:09→22:36)
[2017-11-24] MEDS: SPIRONOLACTONE 25 MG TABLET (FP) PO SCH (10:09)
[2017-11-24] MEDS: APIXABAN 2.5 MG TABLET PO SCH ×2 (10:09→22:36)
[2017-11-24] MEDS: ASPIRIN COATED 81 MG TABLET.EC PO SCH (10:09)
--- NOTE | 2017-11-24 10:39 | PN ---
Physical Exam: SUBJECTIVE: Patient seen and examined at bedside. OBJECTIVE: Vital Signs Period Temp Pulse Resp BP Sys/Ayala Pulse Ox Last 24 Hr 97.6 F 61-72 18-18 180-188/100-113 97-99 GENERAL: The patient is awake, alert, and fully oriented, in no acute distress. LUNGS: Bibasilar crackles. HEART: Irregular, S1, S2 ABDOMEN: Soft, nontender, nondistended, normoactive bowel sounds EXTREMITIES: 2+ pulses, warm, well-perfused, no edema. No calf tenderness. NEUROLOGICAL: Cranial nerves II through XII grossly intact. Normal speech Laboratory Results - last 24 hr 11/24/17 11/24/17 11/24/17 02:35 02:35 04:35 WBC 3.7 L RBC 4.01 Hgb 11.1 L Hct 33.9 L MCV 84.6 MCH 27.6 MCHC 32.6 RDW 18.1 H D Plt Count 116 L MPV 9.1 Neutrophils % 52.4 D Lymphocytes % 30.0 D Monocytes % 10.7 H Eosinophils % 5.7 H Basophils % 1.2 Sodium 145 Potassium 4.1 Chloride 116 H Carbon Dioxide 23 Anion Gap 6 L BUN 29 H Creatinine 2.1 H Creat Clearance w eGFR 30.31 Random Glucose 98 Calcium 8.0 L Total Bilirubin 0.5 AST 32 D ALT 28 D Alkaline Phosphatase 134 H Creatine Kinase 91 Troponin I 1.21 H* D B-Natriuretic Peptide 91861.17 H Total Protein 6.5 Albumin 3.1 L Urine Color Yellow Urine Appearance Clear Urine pH 6.0 Ur Specific [place] 1.018 Urine Protein 2+ H Urine Glucose (UA) Negative Urine Ketones Negative Urine Blood Negative Urine Nitrite Negative Urine Bilirubin Negative Urine Urobilinogen Negative Ur Leukocyte Esterase Negative Urine WBC (Auto) <1 Urine RBC (Auto) 1 Hyaline Casts 6 11/24/17 08:13 WBC RBC Hgb Hct MCV MCH MCHC RDW Plt Count MPV Neutrophils % Lymphocytes % Monocytes % Eosinophils % Basophils % Sodium Potassium Chloride Carbon Dioxide Anion Gap BUN Creatinine Creat Clearance w eGFR Random Glucose Calcium Total Bilirubin AST ALT Alkaline Phosphatase Creatine Kinase Troponin I 1.32 H* B-Natriuretic Peptide Total Protein Albumin Urine Color Urine Appearance Urine pH Ur Specific [place] Urine Protein Urine Glucose (UA) Urine Ketones Urine Blood Urine Nitrite Urine Bilirubin Urine Urobilinogen Ur Leukocyte Esterase Urine WBC (Auto) Urine RBC (Auto) Hyaline Casts Active Medications Generic Name Dose Route Start Last Admin Trade Name Freq PRN Reason Stop Dose Admin Albuterol Sulfate 1 amp 11/24/17 06:22 Ventolin 0.083% Nebulizer Soln - NEB Q4H PRN SHORT OF BREATH/WHEEZING Apixaban 2.5 mg 11/24/17 10:00 11/24/17 10:09 Eliquis - PO 2.5 mg BID TORIN Administration Aspirin 81 mg 11/24/17 10:00 11/24/17 10:09 Ecotrin - PO 81 mg DAILY TORIN Administration Atorvastatin Calcium 40 mg 11/24/17 22:00 Lipitor - PO HS TORIN Carvedilol 6.25 mg 11/24/17 10:00 11/24/17 10:09 Coreg - PO 6.25 mg BID TORIN Administration Furosemide 40 mg 11/24/17 06:45 11/24/17 07:04 Lasix Injection - IVPUSH 40 mg BIDLASIX TORIN Administration Hydralazine HCl 25 mg 11/24/17 10:00 11/24/17 10:09 Apresoline - PO 25 mg BID TORIN Administration Isosorbide Mononitrate 30 mg 11/24/17 10:00 11/24/17 10:09 Imdur - PO 30 mg DAILY TORIN Administration Methylprednisolone Sodium Succinate 125 mg 11/24/17 10:00 11/24/17 10:09 Solu-Medrol - IVPUSH 125 mg DAILY TORIN Administration Spironolactone 25 mg 11/24/17 10:00 11/24/17 10:09 Aldactone - PO 25 mg DAILY TORIN Administration Valsartan 160 mg 11/24/17 10:00 11/24/17 10:09 Diovan - PO 160 mg BID TORIN Administration ASSESSMENT/PLAN 82 year-old male with a PMH significant for HTN, CAD s/p stent s/p CABG (06/2017 , [place]), systolic heart failure, afib, pHTN, and CKD. Admitted for hypertensive urgency and CHF exacerbation. Patient with history of non- compliance with meds. Acute on chronic systolic heart failure --08/08/17 Echo: LV moderately reduced, moderate global hypokinesis; BLAE; mild MR; moderate TR, RVSP 40-50mmHg; mild AI; mild PI; moderate aortic root dilatation --volume overload: no wheezing on my exam, bibasilar crackles, BNP 12,500, congestive changes on CXR --continue Lasix IV BID --stop steroids Hypertensive urgency --BP improved after administration of morning home meds --continue carvedilol, hydralazine, isosorbide, spironolactone, valsartan CAD s/p stent s/p CABG --continue ASA, Liptior, carvedilol, isosorbide Atrial fibrillation --rate controlled on carvedilol --Eliquis CKD --Cr 2.1, baseline 1.8 --no YFN --continue Lasix IV FEN Fluids: PO intake adequate Electrolytes: replete as indicated Nutrition: low sodium DVT prophylaxis: on Eliquis Physical therapy Dispo: continues to require inpatient care. Full code. Visit type - Emergency Visit Emergency Visit: Yes ED Registration Date: 11/24/17 Care time: The patient presented to the Emergency Department on the above date and was hospitalized for further evaluation of their emergent condition. - New Patient This patient is new to me today: Yes Date on this admission: 11/24/17 - Critical Care Critical Care patient: No
--- NOTE | 2017-11-24 14:33 | EKG ---
Test Reason : Blood Pressure : / mmHG Vent. Rate : 059 BPM Atrial Rate : 277 BPM P-R Int : 000 ms QRS Dur : 092 ms QT Int : 442 ms P-R-T Axes : 000 025 234 degrees QTc Int : 437 ms ATRIAL FIBRILLATION WITH SLOW VENTRICULAR RESPONSE CANNOT RULE OUT INFERIOR INFARCT (CITED ON OR BEFORE 30-OCT-2016) CANNOT RULE OUT ANTERIOR INFARCT , AGE UNDETERMINED ABNORMAL ECG WHEN COMPARED WITH ECG OF 09-AUG-2017 10:11, QUESTIONABLE CHANGE IN INITIAL FORCES OF INFERIOR LEADS Confirmed by MD Hudson, Tacho ([id number]) on 11/24/2017 2:33:08 PM Referred By: Confirmed By:Tacho Treviño MD
[2017-11-24 17:05] VITALS: BMI 27.1
[2017-11-24] MEDS: ATORVASTATIN CA 40 MG TABLET (FP) PO SCH (22:35)
[2017-11-25] MEDS: FUROSEMIDE 40 MG/4 ML INJECTABLE VIAL IVPUSH SCH ×2 (06:19→13:53)
[2017-11-25 07:02] LABS: HEMOGLOBIN 11.2 GM/dL (11.7-16.9); MCH 27.8 pg (25.7-33.7); MCHC 33.1 g/dl (32.0-35.9); MEAN CELL VOLUME 84.1 fl (80-96); MEAN PLT VOLUME 9.2 fl (7.5-11.1); PLATELET COUNT 124 K/MM3 (134-434); RBC 4.04 M/mm3 (4.00-5.60); RDW 17.6 % (11.9-15.9); WHITE BLOOD COUNT 12.8 K/mm3 (4.0-10.0)
[2017-11-25 07:04] LABS: ANION GAP 9 (8-16); BLOOD UREA NITROGEN 37 mg/dL (7-18); CALCIUM 8.2 mg/dL (8.5-10.1); CHLORIDE 109 mmol/L (98-107); CHOLESTEROL 115 mg/dL (50-200); CO2 23 mmol/L (21-32); GLUCOSE,RANDOM 118 mg/dL (74-106); POTASSIUM 3.9 mmol/L (3.5-5.1); SGOT/AST 22 U/L (15-37); SODIUM 141 mmol/L (136-145)
[2017-11-25 07:13] LABS: ALK PHOS 120 U/L (45-117); BILIRUBIN,TOTAL 0.5 mg/dL (0.2-1.0); CREATININE 2.3 mg/dL (0.7-1.3); HDL CHOLESTEROL 43 mg/dL (40-60); PHOSPHOROUS 4.1 mg/dL (2.5-4.9); SGPT/ALT 23 U/L (12-78); TOT PROT 6.2 g/dl (6.4-8.2); TRIGLYCERIDES 54 mg/dL (35-160)
[2017-11-25] MEDS: CARVEDILOL 6.25 MG TABLET (FP) PO SCH ×2 (09:24→21:51)
[2017-11-25] MEDS: SPIRONOLACTONE 25 MG TABLET (FP) PO SCH (09:24)
[2017-11-25] MEDS: ISOSORBIDE MONONITRATE 30 MG TAB.SR.24H (FP) PO SCH (09:24)
[2017-11-25] MEDS: hydrALAZINE HCL 25 MG TABLET (FP) PO SCH ×4 (09:24→21:51)
[2017-11-25] MEDS: VALSARTAN 160 MG TABLET (UD) PO SCH (09:25)
[2017-11-25] MEDS: APIXABAN 2.5 MG TABLET PO SCH ×2 (09:25→21:51)
[2017-11-25] MEDS: ASPIRIN COATED 81 MG TABLET.EC PO SCH (09:25)
--- NOTE | 2017-11-25 09:40 | CON.CARD ---
Consult Consult Specialty:: Cardiology for Pan Referred by:: Juanis Sosa Reason for Consultation:: Dyspnea, elevated TnI - History of Present Illness Chief Complaint: SOB since Sunday evening History of Present Illness: Patient is a 82 year old male with a significant past medical history of chronic systolic congestive heart failure, coronary artery disease s/p PCI 2007 , chronic kidney disease, permanent atrial fibrillation. pulmonary hypertension , CABG Jun [address] [facility] [address]. Camargo now admitted with 2 days of BRENNER and PND sx. He denies CP on my history , taken in [place]. Denies palpitations, syncope. Denies fevers or chills. On tele, he has been in AF. Presenting ECG: AF 59bpm, LVH, NSST changes. ? old inferior PA Echo 07/2017: Moderate LV dysfx, global HK and moderate PHTN - History Source History Provided By: Patient, Medical Record - Past Medical History Cardio/Vascular: Yes: AFIB, CAD, CHF, HTN - Past Surgical History Past Surgical History: Yes: CABG, Stent - Alcohol/Substance Use Hx Alcohol Use: No - Smoking History Smoking history: Never smoked Have you smoked in the past 12 months: No - Social History Usual Living Arrangement: Alone Home Medications - Allergies Allergies/Adverse Reactions: Allergies Allergy/AdvReac Type Severity Reaction Status Date / Time No Known Allergies Allergy Verified 11/24/17 01:51 - Home Medications Home Medications: Ambulatory Orders Atorvastatin Ca [Lipitor] 40 mg PO HS #30 tablet 06/04/17 Valsartan [Diovan] 160 mg PO BID #60 tablet 08/10/17 hydrALAZINE HCL [Apresoline -] 25 mg PO BID #60 tablet 08/12/17 Carvedilol [Coreg] 6.25 mg PO BID 11/24/17 Isosorbide Mononitrate 30 mg PO DAILY 11/24/17 Metoprolol Succinate [Toprol XL -] 25 mg PO DAILY 11/24/17 Spironolactone [Aldactone] 25 mg PO DAILY 11/24/17 Family Disease History - Family Disease History Family History: Unremarkable Review of Systems Findings/Remarks: see HPI - Review of Systems Cardiovascular: reports: Shortness of Breath Respiratory: reports: Exercise Intolerance, SOB on Exertion Gastrointestinal: denies: No Symptoms, Abdominal Pain, Bloating, Constipation, Diarrhea, Dysphagia, Indigestion, Melena, Nausea, Rectal Bleeding, Vomiting, Vomiting Blood, Other Genitourinary: denies: No Symptoms, Burning, Discharge, Dysuria, Flank Pain, Frequency, Hematuria, Incontinence, Lesions, Menses, Pain, Testicular Mass, Testicular Pain, Testicular Swelling, Urgency, Vaginal Bleeding, Other Breasts: denies: No Symptoms Reported, See HPI, Breast Implants, Discharge from Nipple, Lumps, Pain, Skin Changes, Other Musculoskeletal: denies: No Symptoms, Back Pain, Crepitus, Decreased ROM, Extremity Pain, Joint Pain, Joint Swelling, Muscle Pain, Muscle Cramps, Muscle Weakness, Other Integumentary: denies: No Symptoms, Blister, Bruising, Change in Color, Eczema, Erythema, Incision, Lesions, Lump, Pallor, Pruritis, Rash, Wound, Other Endocrine: reports: No Symptoms Hematology/Lymphatic: reports: No Symptoms Psychiatric: reports: No Symptoms - Risk Factors Known Risk Factors: Yes: Other (known CAD) Vital Signs: Vital Signs Temperature 98.2 F 11/25/17 06:00 Pulse Rate 66 11/25/17 06:00 Respiratory Rate 20 11/25/17 06:00 Blood Pressure 133/70 11/25/17 06:00 O2 Sat by Pulse Oximetry (%) 94 L 11/24/17 21:00 Constitutional: Yes: No Distress Respiratory: Yes: CTA Bilaterally Gastrointestinal: Yes: Soft Cardiovascular: Yes: Pulse Irregular JVD: Yes PMI: Non-Displaced Heart Sounds: Yes: S1, S2 (iireg) Murmur: Yes: Systolic Murmur (2/6 RSB) Edema: No Neurological: Yes: Alert, Oriented ...Motor Strength: WNL - Other Data Labs, Other Data: CBC, BMP 11/25/17 05:00 11/25/17 05:00 Troponin, BNP 11/24/17 11/24/17 11/24/17 08:13 14:24 20:20 Troponin I 1.32 H* 1.19 H* 1.21 H* Troponin, BNP 11/24/17 11/24/17 11/24/17 08:13 14:24 20:20 Troponin I 1.32 H* 1.19 H* 1.21 H* Echo: Report Reviewed Prior Cardiac Procedures: CABG Imaging - Results X-ray: Image Reviewed EKG: Image Reviewed Problem List - Problems (1) Acute on chronic combined systolic and diastolic CHF, NYHA class 2 Code(s): I50.43 - ACUTE ON CHRONIC COMBINED SYSTOLIC AND DIASTOLIC HRT FAIL (2) Atrial fibrillation with controlled ventricular response Code(s): I48.91 - UNSPECIFIED ATRIAL FIBRILLATION (3) Coronary artery disease Code(s): I25.10 - ATHSCL HEART DISEASE OF [place] CORONARY ARTERY W/O ANG PCTRS Qualifiers: Coronary Disease-Associated Artery/Lesion type: [place] artery [place] vs. transplanted heart: [place] heart Associated angina: with stable angina Qualified Code(s): I25.118 - Atherosclerotic heart disease of [place] coronary artery with other forms of angina pectoris (4) Elevated troponin Code(s): R74.8 - ABNORMAL LEVELS OF OTHER SERUM ENZYMES (5) Chronic kidney disease (CKD) Code(s): N18.9 - CHRONIC KIDNEY DISEASE, UNSPECIFIED Qualifiers: Chronic kidney disease stage: stage 3 (moderate) Qualified Code(s): N18.3 - Chronic kidney disease, stage 3 (moderate) (6) Pulmonary hypertension Code(s): I27.2 - OTHER SECONDARY PULMONARY HYPERTENSION * DO NOT USE * (7) S/P coronary artery stent placement Code(s): Z95.5 - PRESENCE OF CORONARY ANGIOPLASTY IMPLANT AND GRAFT Assessment/Plan IMP: Acute on chronic systolic CHF CAD s/p CABG Ischemic CM with moderate chronic LV systolic dysfx Permanent AF PHTN CKD Elevated TnI in setting of CHF, CKD REC: 1. IV Lasix, follow renal fxn and electrolytes daily 2. Cont. ARB with close attention to renal fxn; Imdur +Hydralazine; Coreg 3. Echo 4. Anticoagulation 5. Consider Pulm Eval for PHTN; await repeat echo Coverage for Pan
--- NOTE | 2017-11-25 13:45 | PN ---
Physical Exam: SUBJECTIVE: Patient seen and examined at bedside. Voices no complaints. OBJECTIVE: Vital Signs Period Temp Pulse Resp BP Sys/Ayala Pulse Ox Last 24 Hr 97.7 F-98.2 F 55-72 18-20 133-160/65-108 94-98 GENERAL: The patient is awake, alert, and fully oriented, in no acute distress. LUNGS: CTA HEART: Irregular, S1, S2 ABDOMEN: Soft, nontender, nondistended, normoactive bowel sounds EXTREMITIES: 2+ pulses, warm, well-perfused, no edema. No calf tenderness. NEUROLOGICAL: Cranial nerves II through XII grossly intact. Normal speech Laboratory Results - last 24 hr 11/24/17 11/24/17 11/25/17 14:24 20:20 05:00 WBC 12.8 H D RBC 4.04 Hgb 11.2 L Hct 34.0 L MCV 84.1 MCH 27.8 MCHC 33.1 RDW 17.6 H Plt Count 124 L MPV 9.2 Sodium Potassium Chloride Carbon Dioxide Anion Gap BUN Creatinine Creat Clearance w eGFR Random Glucose Hemoglobin A1c % Calcium Phosphorus Magnesium Total Bilirubin AST ALT Alkaline Phosphatase Troponin I 1.19 H* 1.21 H* Total Protein Albumin Triglycerides Cholesterol Total LDL Cholesterol HDL Cholesterol TSH Free T4 11/25/17 11/25/17 11/25/17 05:00 05:00 05:00 WBC RBC Hgb Hct MCV MCH MCHC RDW Plt Count MPV Sodium 141 Potassium 3.9 Chloride 109 H Carbon Dioxide 23 Anion Gap 9 BUN 37 H D Creatinine 2.3 H Creat Clearance w eGFR 27.29 Random Glucose 118 H D Hemoglobin A1c % 6.8 H D Calcium 8.2 L Phosphorus 4.1 D Magnesium 2.0 Total Bilirubin 0.5 AST 22 D ALT 23 Alkaline Phosphatase 120 H Troponin I Total Protein 6.2 L Albumin 3.0 L Triglycerides 54 Cholesterol 115 Total LDL Cholesterol 68 D HDL Cholesterol 43 TSH 0.30 L D Free T4 1.33 H Active Medications Generic Name Dose Route Start Last Admin Trade Name Freq PRN Reason Stop Dose Admin Apixaban 2.5 mg 11/24/17 10:00 11/25/17 09:25 Eliquis - PO 2.5 mg BID TORIN Administration Aspirin 81 mg 11/24/17 10:00 11/25/17 09:25 Ecotrin - PO 81 mg DAILY TORIN Administration Atorvastatin Calcium 40 mg 11/24/17 22:00 11/24/17 22:35 Lipitor - PO 40 mg HS TORIN Administration Carvedilol 6.25 mg 11/24/17 10:00 11/25/17 09:24 Coreg - PO 6.25 mg BID TORIN Administration Furosemide 40 mg 11/24/17 06:45 11/25/17 06:19 Lasix Injection - IVPUSH 40 mg BIDLASIX TORIN Administration Hydralazine HCl 25 mg 11/24/17 10:00 11/25/17 09:24 Apresoline - PO 25 mg BID TORIN Administration Isosorbide Mononitrate 30 mg 11/24/17 10:00 11/25/17 09:24 Imdur - PO 30 mg DAILY TORIN Administration Spironolactone 25 mg 11/24/17 10:00 11/25/17 09:24 Aldactone - PO 25 mg DAILY TORIN Administration Valsartan 160 mg 11/24/17 10:00 11/25/17 09:25 Diovan - PO 160 mg BID TORIN Administration ASSESSMENT/PLAN 82 year-old male with a PMH significant for HTN, CAD s/p stent s/p CABG (06/2017 , [place]), systolic heart failure, afib, pHTN, and CKD. Admitted for hypertensive urg ency and CHF exacerbation. Patient with history of non- compliance with meds. Acute on chronic systolic heart failure --08/08/17 Echo: LV moderately reduced, moderate global hypokinesis; BLAE; mild MR; moderate TR, RVSP 40-50mmHg; mild AI; mild PI --clinically improved, no wheezing, no crackles; CXR today shows clearing of congestive changes --repeat echo pending --continue Lasix IV BID --d/c's steroids Hypertensive urgency --BP elevated with HR high 50s-60s --increase hydralazine 25mg to QID, lower valsartan to 160mg QD --continue carvedilol, isosorbide, spironolactone CAD s/p stent s/p CABG --continue ASA, Liptior, carvedilol, isosorbide Atrial fibrillation --rate controlled on carvedilol --on Eliquis CKD --slight bump in Cr 2.3, baseline 1.8 --continue Lasix IV --lowered ARB dose --discussed with caradiology Hyperthyroidism --TSH low, free T4 elevated --will not go up on carvedilol due to lower HR --endocrine consult requested FEN Fluids: PO intake adequate Electrolytes: replete as indicated Nutrition: low sodium DVT prophylaxis: on Eliquis Physical therapy Dispo: continues to require inpatient care. Full code. Visit type - Emergency Visit Emergency Visit: Yes ED Registration Date: 11/24/17 Care time: The patient presented to the Emergency Department on the above date and was hospitalized for further evaluation of their emergent condition. - New Patient This patient is new to me today: No - Critical Care Critical Care patient: No
[2017-11-25] MEDS: ATORVASTATIN CA 40 MG TABLET (FP) PO SCH (21:51)
[2017-11-26] MEDS: FUROSEMIDE 40 MG/4 ML INJECTABLE VIAL IVPUSH SCH ×2 (06:12→13:24)
[2017-11-26 07:14] LABS: BASO % 0.5 % (0-2.0); EOS % 1.3 % (0-4.5); HEMATOCRIT 36.1 % (35.4-49); LYMPH % 23.2 % (8-40); MCH 27.8 pg (25.7-33.7); MCHC 33.1 g/dl (32.0-35.9); MEAN CELL VOLUME 83.9 fl (80-96); MEAN PLT VOLUME 9.1 fl (7.5-11.1); MONO % 7.5 % (3.8-10.2); NEUT % 67.5 % (42.8-82.8); PLATELET COUNT 142 K/MM3 (134-434); RBC 4.31 M/mm3 (4.00-5.60); WHITE BLOOD COUNT 7.6 K/mm3 (4.0-10.0)
[2017-11-26 07:21] LABS: ANION GAP 7 (8-16); BLOOD UREA NITROGEN 40 mg/dL (7-18); CALCIUM 7.8 mg/dL (8.5-10.1); CHLORIDE 110 mmol/L (98-107); CO2 27 mmol/L (21-32); GLUCOSE,RANDOM 83 mg/dL (74-106); MAGNESIUM 2.1 mg/dL (1.8-2.4); POTASSIUM 3.6 mmol/L (3.5-5.1); SODIUM 144 mmol/L (136-145)
[2017-11-26 07:26] LABS: ALK PHOS 114 U/L (45-117); BILIRUBIN,TOTAL 0.4 mg/dL (0.2-1.0); CREATININE 2.1 mg/dL (0.7-1.3); SGOT/AST 23 U/L (15-37); SGPT/ALT 27 U/L (12-78); TOT PROT 6.2 g/dl (6.4-8.2)
--- NOTE | 2017-11-26 09:18 | PN ---
Progress Note, Physician History of Present Illness: Patient is a 82 year old male with a significant past medical history of chronic systolic congestive heart failure, coronary artery disease s/p PCI 2007 , chronic kidney disease, permanent atrial fibrillation. pulmonary hypertension , CABG Jun 2017 [address] [facility] dr. Camargo now admitted with 2 days of BRENNER and PND sx. He denies CP on my history , taken in [place]. Denies palpitations, syncope. Denies fevers or chills. On tele, he has been in AF. - Current Medication List Current Medications: Active Medications Apixaban (Eliquis -) 2.5 mg PO BID [facility] Last Admin: 11/25/17 21:51 Dose: 2.5 mg Aspirin (Ecotrin -) 81 mg PO DAILY [facility] Last Admin: 11/25/17 09:25 Dose: 81 mg Atorvastatin Calcium (Lipitor -) 40 mg PO HS [facility] Last Admin: 11/25/17 21:51 Dose: 40 mg Carvedilol (Coreg -) 6.25 mg PO BID [facility] Last Admin: 11/25/17 21:51 Dose: 6.25 mg Furosemide (Lasix Injection -) 40 mg IVPUSH BIDLASIX [facility] Last Admin: 11/26/17 06:12 Dose: 40 mg Hydralazine HCl (Apresoline -) 25 mg PO QID [facility] Last Admin: 11/25/17 21:51 Dose: 25 mg Isosorbide Mononitrate (Imdur -) 30 mg PO DAILY [facility] Last Admin: 11/25/17 09:24 Dose: 30 mg Spironolactone (Aldactone -) 25 mg PO DAILY [facility] Last Admin: 11/25/17 09:24 Dose: 25 mg Valsartan (Diovan -) 160 mg PO DAILY [facility] - Objective Vital Signs: Vital Signs Temperature 97.5 F L 11/26/17 06:00 Pulse Rate 64 11/26/17 06:00 Respiratory Rate 20 11/26/17 06:00 Blood Pressure 157/65 11/26/17 06:00 O2 Sat by Pulse Oximetry (%) 99 11/25/17 21:00 Eyes: Yes: WNL, Conjunctiva Clear, EOM Intact HENT: Yes: WNL, Atraumatic, Normocephalic Neck: Yes: WNL, Supple, Trachea Midline Cardiovascular: Yes: WNL, Regular Rate and Rhythm Respiratory: Yes: WNL, Regular, CTA Bilaterally Gastrointestinal: Yes: WNL, Normal Bowel Sounds Genitourinary: Yes: WNL Musculoskeletal: Yes: WNL Extremities: Yes: WNL Edema: No Integumentary: Yes: WNL Neurological: Yes: WNL, Alert, Oriented ...Motor Strength: WNL Psychiatric: Yes: WNL Labs: CBC, BMP 11/26/17 06:30 11/26/17 06:30 Assessment/Plan Problems (1) Acute on chronic combined systolic and diastolic CHF, NYHA class 2 Code(s): I50.43 - ACUTE ON CHRONIC COMBINED SYSTOLIC AND DIASTOLIC HRT FAIL (2) Atrial fibrillation with controlled ventricular response Code(s): I48.91 - UNSPECIFIED ATRIAL FIBRILLATION (3) Coronary artery disease Code(s): I25.10 - ATHSCL HEART DISEASE OF [place] CORONARY ARTERY W/O ANG PCTRS Qualifiers: Coronary Disease-Associated Artery/Lesion type: [place] artery [place] vs. transplanted heart: [place] heart Associated angina: with stable angina Qualified Code(s): I25.118 - Atherosclerotic heart disease of [place] coronary artery with other forms of angina pectoris (4) Elevated troponin Code(s): R74.8 - ABNORMAL LEVELS OF OTHER SERUM ENZYMES (5) Chronic kidney disease (CKD) Code(s): N18.9 - CHRONIC KIDNEY DISEASE, UNSPECIFIED Qualifiers: Chronic kidney disease stage: stage 3 (moderate) Qualified Code(s): N18.3 - Chronic kidney disease, stage 3 (moderate) (6) Pulmonary hypertension Code(s): I27.2 - OTHER SECONDARY PULMONARY HYPERTENSION * DO NOT USE * (7) S/P coronary artery stent placement Code(s): Z95.5 - PRESENCE OF CORONARY ANGIOPLASTY IMPLANT AND GRAFT Assessment/Plan IMP: Acute on chronic systolic CHF CAD s/p CABG Ischemic CM with moderate chronic LV systolic dysfx Permanent AF PHTN CKD Elevated TnI in setting of CHF, CKD REC: 1. IV Lasix, follow renal fxn and electrolytes daily 2. Cont. ARB with close attention to renal fxn; Imdur +Hydralazine; Coreg 3. Echo 4. Anticoagulation 5. Consider Pulm Eval for PHTN; await repeat echo
[2017-11-26] MEDS: VALSARTAN 160 MG TABLET (UD) PO SCH (09:26)
[2017-11-26] MEDS: CARVEDILOL 6.25 MG TABLET (FP) PO SCH ×2 (09:26→22:29)
[2017-11-26] MEDS: SPIRONOLACTONE 25 MG TABLET (FP) PO SCH (09:27)
[2017-11-26] MEDS: ISOSORBIDE MONONITRATE 30 MG TAB.SR.24H (FP) PO SCH (09:27)
[2017-11-26] MEDS: ASPIRIN COATED 81 MG TABLET.EC PO SCH (09:27)
[2017-11-26] MEDS: APIXABAN 2.5 MG TABLET PO SCH ×2 (09:27→22:29)
[2017-11-26] MEDS: hydrALAZINE HCL 25 MG TABLET (FP) PO SCH ×4 (09:27→22:30)
--- NOTE | 2017-11-26 12:52 | PN ---
Progress Note (short form) - Note Progress Note: Subjective: The patient was seen and examined at the bedside, he has no complaints at this time. Current Medications Generic Name Dose Route Start Last Admin Trade Name Manjinder PRN Reason Stop Dose Admin Apixaban 2.5 mg 11/24/17 10:00 11/26/17 09:27 Eliquis - PO 2.5 mg BID TORIN Administration Aspirin 81 mg 11/24/17 10:00 11/26/17 09:27 Ecotrin - PO 81 mg DAILY TORIN Administration Atorvastatin Calcium 40 mg 11/24/17 22:00 11/25/17 21:51 Lipitor - PO 40 mg HS TORIN Administration Carvedilol 6.25 mg 11/24/17 10:00 11/26/17 09:26 Coreg - PO 6.25 mg BID TORIN Administration Furosemide 40 mg 11/24/17 06:45 11/26/17 06:12 Lasix Injection - IVPUSH 40 mg BIDLASIX TORIN Administration Hydralazine HCl 25 mg 11/25/17 14:00 11/26/17 09:27 Apresoline - PO 25 mg QID TORIN Administration Isosorbide Mononitrate 30 mg 11/24/17 10:00 11/26/17 09:27 Imdur - PO 30 mg DAILY TORIN Administration Spironolactone 25 mg 11/24/17 10:00 11/26/17 09:27 Aldactone - PO 25 mg DAILY TORIN Administration Valsartan 160 mg 11/26/17 10:00 11/26/17 09:26 Diovan - PO 160 mg DAILY TORIN Administration Objective: Vital Signs Period Temp Pulse Resp BP Sys/Ayala Pulse Ox Last 24 Hr 97.4 F-98.2 F 55-65 18-20 141-188/65-90 95-99 Physical Exam: General: NAD, A&Ox3 Lungs: CTA bilaterally Heart: Irregular pulse, S1S2 Abd: soft, non-tender, non-distended. Normoactive bowel sounds Ext: Warm, well-perfused. 2+ DP/PT bilaterally CBCD WBC 7.6 K/mm3 (4.0-10.0) D 11/26/17 06:30 RBC 4.31 M/mm3 (4.00-5.60) 11/26/17 06:30 Hgb 12.0 GM/dL (11.7-16.9) 11/26/17 06:30 Hct 36.1 % (35.4-49) 11/26/17 06:30 MCV 83.9 fl (80-96) 11/26/17 06:30 MCHC 33.1 g/dl (32.0-35.9) 11/26/17 06:30 RDW 18.0 % (11.9-15.9) H 11/26/17 06:30 Plt Count 142 K/MM3 (134-434) 11/26/17 06:30 MPV 9.1 fl (7.5-11.1) 11/26/17 06:30 CMP Sodium 144 mmol/L (136-145) 11/26/17 06:30 Potassium 3.6 mmol/L (3.5-5.1) 11/26/17 06:30 Chloride 110 mmol/L (98-107) H 11/26/17 06:30 Carbon Dioxide 27 mmol/L (21-32) 11/26/17 06:30 Anion Gap 7 (8-16) L 11/26/17 06:30 BUN 40 mg/dL (7-18) H 11/26/17 06:30 Creatinine 2.1 mg/dL (0.7-1.3) H 11/26/17 06:30 Creat Clearance w eGFR 30.31 (>60) 11/26/17 06:30 Random Glucose 83 mg/dL (74-106) D 11/26/17 06:30 Calcium 7.8 mg/dL (8.5-10.1) L 11/26/17 06:30 Total Bilirubin 0.4 mg/dL (0.2-1.0) 11/26/17 06:30 AST 23 U/L (15-37) 11/26/17 06:30 ALT 27 U/L (12-78) 11/26/17 06:30 Alkaline Phosphatase 114 U/L (45-117) 11/26/17 06:30 Total Protein 6.2 g/dl (6.4-8.2) L 11/26/17 06:30 Albumin 3.0 g/dl (3.4-5.0) L 11/26/17 06:30 CARDIAC ENZYMES Creatine Kinase 91 IU/L (39-308) 05/05/18 02:35 Troponin I 1.21 ng/ml (0.00-0.05) H* 11/24/17 20:20 Assessment: This is an 82 year old male with PMHx of HTN, CAD s/p stenting, s/p CABG (06/2017, [place]), systolic heart failure, a.fib, pHTN, CKD, who presented to the ED with shortness of breath. Plan: 1) Acute on chronic systolic heart failure - Previous ECHO from 08/08/17: LV moderately reduced, moderate global hypokinesis ; BLAE; mild MR; moderate TR, RVSP 40-50mmHg; mild AI; mild PI - Repeat ECHO today pending - Lungs CTA bilaterally - Continue Lasix 40mg IVP bid - Appreciate cardiology consult 2) Hypertensive urgency - Continue Hydralazine 25mg po qid - Continue Imdur 30mg po daily - Continue Aldactone 25mg po daily - Continue Diovan 160mg po daily (monitor Cr closely) - Continue Coreg 6.25mg po bid (observe HR closely) - Appreciate cardiology consult 3) CAD s/p stenting, s/p CABG - Continue ASA - Continue Imdur - Continue Bblocker - Continue Lipitor 4) YFN on CKD - Cr improving - Continue to trend Cr; monitor closely as patient is on ARB and Lasix 5) Hyperthyroidism, elevated HgbA1c - BGM ACHS - ISS ACHS - F/u endocrine consult for further recommendations 6) A.fib - Rate controlled - Continue Eliquis 2.5mg bid 7) F/E/N: - Sodium controlled diet - Monitor electrolytes 8) Prophylaxis: - On Eliquis 9) Dispo: - Requires continued inpatient care CODE STATUS: FULL CODE Visit type - Emergency Visit Emergency Visit: Yes ED Registration Date: 11/24/17 Care time: The patient presented to the Emergency Department on the above date and was hospitalized for further evaluation of their emergent condition. - New Patient This patient is new to me today: Yes Date on this admission: 11/26/17 - Critical Care Critical Care patient: No
--- NOTE | 2017-11-26 18:25 | EKG ---
Test Reason : Blood Pressure : / mmHG Vent. Rate : 067 BPM Atrial Rate : 045 BPM P-R Int : 000 ms QRS Dur : 098 ms QT Int : 460 ms P-R-T Axes : 000 001 173 degrees QTc Int : 486 ms ATRIAL FIBRILLATION INFERIOR INFARCT (CITED ON OR BEFORE 30-OCT-2016) ABNORMAL ECG WHEN COMPARED WITH ECG OF 24-NOV-2017 02:37, NO SIGNIFICANT CHANGE WAS FOUND Confirmed by LITZY LY MD ([id number]) on 11/26/2017 6:25:35 PM Referred By: Confirmed By:LITZY LY MD
[2017-11-26] MEDS: ATORVASTATIN CA 40 MG TABLET (FP) PO SCH (22:29)
[2017-11-27] MEDS: FUROSEMIDE 40 MG/4 ML INJECTABLE VIAL IVPUSH SCH (06:14)
[2017-11-27 07:32] LABS: HEMATOCRIT 41.5 % (35.4-49); HEMOGLOBIN 13.6 GM/dL (11.7-16.9); MCH 27.8 pg (25.7-33.7); MCHC 32.8 g/dl (32.0-35.9); MEAN CELL VOLUME 84.8 fl (80-96); MEAN PLT VOLUME 8.9 fl (7.5-11.1); PLATELET COUNT 181 K/MM3 (134-434); RDW 17.6 % (11.9-15.9); WHITE BLOOD COUNT 5.4 K/mm3 (4.0-10.0)
[2017-11-27 07:51] LABS: ANION GAP 9 (8-16); BLOOD UREA NITROGEN 46 mg/dL (7-18); CALCIUM 8.3 mg/dL (8.5-10.1); CHLORIDE 106 mmol/L (98-107); CO2 28 mmol/L (21-32); CREATININE 2.1 mg/dL (0.7-1.3); GLUCOSE,RANDOM 91 mg/dL (74-106); POTASSIUM 3.7 mmol/L (3.5-5.1); SODIUM 143 mmol/L (136-145)
[2017-11-27] MEDS: ISOSORBIDE MONONITRATE 30 MG TAB.SR.24H (FP) PO SCH (09:18)
[2017-11-27] MEDS: VALSARTAN 160 MG TABLET (UD) PO SCH (09:18)
[2017-11-27] MEDS: CARVEDILOL 6.25 MG TABLET (FP) PO SCH (09:18)
[2017-11-27] MEDS: APIXABAN 2.5 MG TABLET PO SCH ×2 (09:18→22:12)
[2017-11-27] MEDS: ASPIRIN COATED 81 MG TABLET.EC PO SCH (09:18)
[2017-11-27] MEDS: SPIRONOLACTONE 25 MG TABLET (FP) PO SCH (09:18)
[2017-11-27] MEDS: hydrALAZINE HCL 25 MG TABLET (FP) PO SCH ×2 (09:18→22:12)
[2017-11-27] MEDS ORDERED: hydrALAZINE HCL 25 MG TABLET (FP) PO SCH (11:43)
--- NOTE | 2017-11-27 13:33 | PN ---
Progress Note, Physician Chief Complaint: Pt A&Ox3; felt dizzy when he got up to have physical therapy; he has been urinating copiously. History of Present Illness: 82 year old male with pmh of systolic CHF, CAD: s/p pci /p CABG 06/2017 at [facility] with Dr. Camargo); CKD, A fib, pulm HTN, presenting to the ED via EMS with difficulty breathing. He has questionable medication compliance per his past notes. EMS on scene states his O2 was 97% on RA but still subjectively SOB. His symptoms improved after being place don [facility]. Denies any nausea, vomiting, fevers, chills, cough, lyly ther issues. According to previous notes he has a home nursing aid. He was admitted 4 months prior for hypertensive urgency and chf exacerbation. During that visit they increased his Hydralazine to 25mg BID, Diovan 160mg BID, Iso mono 10mg daily, decreased lasix 20mg daily, Hydralazine added to iso mono regimen, decreased Eliquis 2.5mg BID, and Toprol xl 12.5mg daily. The patient brought a bag of his medications with him to the ED and Diovan was not in there. States he is only taking the medications in that bag. PCP is Dr. Nhung Polanco in [facility]. - Current Medication List Current Medications: Active Medications Apixaban (Eliquis -) 2.5 mg PO BID [facility] Last Admin: 11/27/17 09:18 Dose: 2.5 mg Aspirin (Ecotrin -) 81 mg PO DAILY [facility] Last Admin: 11/27/17 09:18 Dose: 81 mg Atorvastatin Calcium (Lipitor -) 40 mg PO HS [facility] Last Admin: 11/26/17 22:29 Dose: 40 mg Carvedilol (Coreg -) 6.25 mg PO BID [facility] Last Admin: 11/27/17 09:18 Dose: 6.25 mg Furosemide (Lasix Injection -) 40 mg IVPUSH DAILY [facility] Hydralazine HCl (Apresoline -) 25 mg PO BID [facility] Isosorbide Mononitrate (Imdur -) 30 mg PO DAILY [facility] Last Admin: 11/27/17 09:18 Dose: 30 mg Spironolactone (Aldactone -) 25 mg PO DAILY [facility] Last Admin: 11/27/17 09:18 Dose: 25 mg Valsartan (Diovan -) 160 mg PO DAILY [facility] Last Admin: 11/27/17 09:18 Dose: 160 mg - Objective Vital Signs: Vital Signs Temperature 98 F 11/27/17 05:00 Pulse Rate 60 11/27/17 05:00 Respiratory Rate 18 11/27/17 05:00 Blood Pressure 119/71 11/27/17 05:00 O2 Sat by Pulse Oximetry (%) 95 11/26/17 21:00 Constitutional: Yes: Calm Eyes: Yes: WNL HENT: Yes: WNL Neck: Yes: WNL Cardiovascular: Yes: Bradycardia, S1, S2 Respiratory: Yes: WNL Gastrointestinal: Yes: Soft ...Rectal Exam: Yes: Deferred Genitourinary: Yes: Polyuria Breast(s): Yes: WNL Musculoskeletal: Yes: Muscle Weakness Extremities: Yes: Cool Edema: No Peripheral Pulses WNL: Yes Integumentary: Yes: WNL Neurological: Yes: WNL Psychiatric: Yes: WNL Labs: CBC, BMP 11/27/17 07:10 11/27/17 07:10 Abnormal Lab Results 11/27/17 11/27/17 07:10 07:10 RDW 17.6 H BUN 46 H Creatinine 2.1 H Calcium 8.3 L - ....Imaging Other: Image Reviewed (telemetry: NSR; periods of marked sinus bradycardia to high 30s bpm) Problem List - Problems (1) Acute on chronic combined systolic and diastolic CHF, NYHA class 2 Assessment/Plan: Now with clear lungs, elevated BUN/Cr, No JVD; dizzy. Will decrease carvedilolo to 3.125 mg bid; b/u HR (periods of sinus bradycardia to high 30s bpm). Decrease hydralazine to 25 mg bid; continue Imdur. On valsartan. Decrease furosemide to 20-40 mg qd; pt being given fluid bolus. s/p CABG 06/2017. LVEF on ECHO: 40%. Code(s): I50.43 - ACUTE ON CHRONIC COMBINED SYSTOLIC AND DIASTOLIC HRT FAIL (2) Elevated troponin Assessment/Plan: TNI 1.2; normal CK Likely demand ischemia from acute CHF, HTN. For stress MIBI. Code(s): R74.8 - ABNORMAL LEVELS OF OTHER SERUM ENZYMES (3) Hypokalemia Assessment/Plan: Keep K 4-4.5 Keep Mg 2-2.3 Keep Po4 2.5-3.5. Code(s): E87.6 - HYPOKALEMIA (4) Atrial fibrillation Assessment/Plan: On carvedilol for HR control. On apixaban for anticoagulation. Code(s): I48.91 - UNSPECIFIED ATRIAL FIBRILLATION
--- NOTE | 2017-11-27 13:52 | EKG ---
Test Reason : Blood Pressure : / mmHG Vent. Rate : 059 BPM Atrial Rate : 125 BPM P-R Int : 000 ms QRS Dur : 098 ms QT Int : 484 ms P-R-T Axes : 000 012 176 degrees QTc Int : 479 ms ATRIAL FIBRILLATION WITH SLOW VENTRICULAR RESPONSE INFERIOR INFARCT (CITED ON OR BEFORE 30-OCT-2016) ABNORMAL ECG WHEN COMPARED WITH ECG OF 26-NOV-2017 11:41, NO SIGNIFICANT CHANGE WAS FOUND Confirmed by MD Jamison, Henry ([id number]) on 11/27/2017 1:51:49 PM Referred By: CALE ONEIL Confirmed By:Henry Swift MD
[2017-11-27] MEDS ORDERED: SODIUM CHLORIDE 250 ML IV STA ×2 (14:17→16:47)
--- NOTE | 2017-11-27 17:01 | PN ---
Progress Note (short form) - Note Progress Note: Subjective: The patient was seen and examined at the bedside, he has complaints of dizziness + orthostatics 250cc NS bolus x2 given with improvement in othostatics and patient reports feeling better Episodes of bradycardia today, discussed and changed cardiac medications per Dr. Nagel Current Medications Generic Name Dose Route Start Last Admin Trade Name Freq PRN Reason Stop Dose Admin Apixaban 2.5 mg 11/24/17 10:00 11/27/17 09:18 Eliquis - PO 2.5 mg BID [facility] Administration Aspirin 81 mg 11/24/17 10:00 11/27/17 09:18 Ecotrin - PO 81 mg DAILY [facility] Administration Atorvastatin Calcium 40 mg 11/24/17 22:00 11/26/17 22:29 Lipitor - PO 40 mg HS [facility] Administration Carvedilol 6.25 mg 11/24/17 10:00 11/27/17 09:18 Coreg - PO 6.25 mg BID [facility] Administration Furosemide 40 mg 11/28/17 10:00 Lasix Injection - IVPUSH DAILY [facility] Hydralazine HCl 25 mg 11/27/17 22:00 Apresoline - PO BID [facility] Sodium Chloride 250 mls @ 250 mls/hr 11/27/17 16:47 Normal Saline - IV 11/27/17 17:46 ASDIR STA Isosorbide Mononitrate 30 mg 11/24/17 10:00 11/27/17 09:18 Imdur - PO 30 mg DAILY [facility] Administration Spironolactone 25 mg 11/24/17 10:00 11/27/17 09:18 Aldactone - PO 25 mg DAILY [facility] Administration Valsartan 160 mg 11/26/17 10:00 11/27/17 09:18 Diovan - PO 160 mg DAILY [facility] Administration Objective: Vital Signs Period Temp Pulse Resp BP Sys/Ayala Pulse Ox Last 24 Hr 97.5 F-98.3 F 60-82 18-20 90-138/50-81 95-98 Physical Exam: General: NAD, A&Ox3 Lungs: CTA bilaterally Heart: Irregular pulse, S1S2 Abd: soft, non-tender, non-distended. Normoactive bowel sounds Ext: Warm, well-perfused. 2+ DP/PT bilaterally CBCD WBC 5.4 K/mm3 (4.0-10.0) 11/27/17 07:10 RBC 4.90 M/mm3 (4.00-5.60) 11/27/17 07:10 Hgb 13.6 GM/dL (11.7-16.9) D 11/27/17 07:10 Hct 41.5 % (35.4-49) 11/27/17 07:10 MCV 84.8 fl (80-96) 11/27/17 07:10 MCHC 32.8 g/dl (32.0-35.9) 11/27/17 07:10 RDW 17.6 % (11.9-15.9) H 11/27/17 07:10 Plt Count 181 K/MM3 (134-434) D 11/27/17 07:10 MPV 8.9 fl (7.5-11.1) 11/27/17 07:10 CMP Sodium 143 mmol/L (136-145) 11/27/17 07:10 Potassium 3.7 mmol/L (3.5-5.1) 11/27/17 07:10 Chloride 106 mmol/L (98-107) 11/27/17 07:10 Carbon Dioxide 28 mmol/L (21-32) 11/27/17 07:10 Anion Gap 9 (8-16) 11/27/17 07:10 BUN 46 mg/dL (7-18) H 11/27/17 07:10 Creatinine 2.1 mg/dL (0.7-1.3) H 11/27/17 07:10 Creat Clearance w eGFR 30.31 (>60) 11/26/17 06:30 Random Glucose 91 mg/dL (74-106) 11/27/17 07:10 Calcium 8.3 mg/dL (8.5-10.1) L 11/27/17 07:10 Total Bilirubin 0.4 mg/dL (0.2-1.0) 11/26/17 06:30 AST 23 U/L (15-37) 11/26/17 06:30 ALT 27 U/L (12-78) 11/26/17 06:30 Alkaline Phosphatase 114 U/L (45-117) 11/26/17 06:30 Total Protein 6.2 g/dl (6.4-8.2) L 11/26/17 06:30 Albumin 3.0 g/dl (3.4-5.0) L 11/26/17 06:30 CARDIAC ENZYMES Creatine Kinase 91 IU/L (39-308) 11/24/17 02:35 Troponin I 1.21 ng/ml (0.00-0.05) H* 11/24/17 20:20 Assessment: This is an 82 year old male with PMHx of HTN, CAD s/p stenting, s/p CABG (06/2017, [place]), systolic heart failure, a.fib, pHTN, CKD, who presented to the ED with shortness of breath. Plan: 1) Acute on chronic systolic heart failure - Previous ECHO from 08/08/17: LV moderately reduced, moderate global hypokinesis ; BLAE; mild MR; moderate TR, RVSP 40-50mmHg; mild AI; mild PI - Repeat ECHO today pending - Lungs CTA bilaterally - Lasix dose decreased to 40mg po daily as the patient had + orthostatics today and dizziness - Appreciate cardiology consult 2) Hypertensive urgency - Today with hypotension and positive orthostatics. Gave 250ml NS bolus x2 - Decreased Hydralazine to 25mg po bid due to hypotension - Decreased Coreg to 3.125mg po bid due to bradycardia - Continue Imdur 30mg po daily - Continue Aldactone 25mg po daily - Continue Diovan 160mg po daily (monitor Cr closely) - Appreciate cardiology consult 3) Bradycardia - HR down to the 40s today - Improved this afternoon - Decrease Coreg dose - Discussed with Dr. Nagel, may need to consider pacemaker if remains bradycardic 4) CAD s/p stenting, s/p CABG - Continue ASA - Continue Imdur - Continue Bblocker - Continue Lipitor 5) YFN on CKD - Cr improving - Continue to trend Cr; monitor closely as patient is on ARB and Lasix 6) Hyperthyroidism, elevated HgbA1c (6.8) - BGM ACHS - ISS ACHS - F/u endocrine consult for further recommendations 7) A.fib - Rate controlled - Continue Eliquis 2.5mg bid 8) F/E/N: - Sodium controlled diet - Monitor electrolytes 9) Prophylaxis: - On Eliquis 10) Dispo: - Requires continued inpatient care CODE STATUS: FULL CODE Visit type - Emergency Visit Emergency Visit: Yes ED Registration Date: 11/24/17 Care time: The patient presented to the Emergency Department on the above date and was hospitalized for further evaluation of their emergent condition. - New Patient This patient is new to me today: No - Critical Care Critical Care patient: No
[2017-11-27] MEDS: ATORVASTATIN CA 40 MG TABLET (FP) PO SCH (22:11)
[2017-11-27] MEDS: CARVEDILOL 3.125 MG TABLET (FP) PO SCH (22:12)
[2017-11-27] MEDS: INSULIN SLIDING SCALE (NOVOLOG) 1 VIAL SQ SCH (22:17)
[2017-11-28] MEDS: INSULIN SLIDING SCALE (NOVOLOG) 1 VIAL SQ SCH ×4 (06:21→21:59)
[2017-11-28 09:19] LABS: HEMATOCRIT 38.8 % (35.4-49); HEMOGLOBIN 12.9 GM/dL (11.7-16.9); MCH 28.3 pg (25.7-33.7); MCHC 33.3 g/dl (32.0-35.9); MEAN PLT VOLUME 9.2 fl (7.5-11.1); PLATELET COUNT 165 K/MM3 (134-434); RBC 4.57 M/mm3 (4.00-5.60); RDW 17.8 % (11.9-15.9); WHITE BLOOD COUNT 5.1 K/mm3 (4.0-10.0)
[2017-11-28 10:23] LABS: CHLORIDE 98 mmol/L (98-107); POTASSIUM 3.5 mmol/L (3.5-5.1); SODIUM 139 mmol/L (136-145)
[2017-11-28] MEDS: SPIRONOLACTONE 25 MG TABLET (FP) PO SCH (11:14)
[2017-11-28] MEDS: hydrALAZINE HCL 25 MG TABLET (FP) PO SCH ×2 (11:14→21:50)
[2017-11-28] MEDS: VALSARTAN 160 MG TABLET (UD) PO SCH (11:14)
[2017-11-28] MEDS: ASPIRIN COATED 81 MG TABLET.EC PO SCH (11:14)
[2017-11-28] MEDS: ISOSORBIDE MONONITRATE 30 MG TAB.SR.24H (FP) PO SCH (11:15)
[2017-11-28] MEDS: APIXABAN 2.5 MG TABLET PO SCH ×2 (11:15→21:50)
[2017-11-28] MEDS: FUROSEMIDE 40 MG/4 ML INJECTABLE VIAL IVPUSH SCH (11:15)
[2017-11-28] MEDS: CARVEDILOL 3.125 MG TABLET (FP) PO SCH ×2 (11:15→21:50)
[2017-11-28 11:22] LABS: ANION GAP 9 (8-16); BLOOD UREA NITROGEN 18 mg/dL (7-18); CALCIUM 8.5 mg/dL (8.5-10.1); CO2 32 mmol/L (21-32); CREATININE 0.9 mg/dL (0.7-1.3); GLUCOSE,RANDOM 77 mg/dL (74-106); MAGNESIUM 2.1 mg/dL (1.8-2.4); PHOSPHOROUS 2.3 mg/dL (2.5-4.9)
--- NOTE | 2017-11-28 11:23 | CONSULT ---
Consult Consult Specialty:: endocrine Reason for Consultation:: hyperthyroidism - History of Present Illness Chief Complaint: palpitation History of Present Illness: 82 yo M with pmh of systolic CHF, CAD, s/p pci 2007, CKD, A fib, pulm HTN, CABG 06/2017 (@ [place] with Dr. Camargo), who bibems due to subjective sob (not hypoxic) x 2d. He reports orthopnea and decreased exercise tolerance but denies cp, cough, appetite change or peripheral edema. He is known to be noncompliant with medications, however states he has been taking all his pills except for diovan and eliquis, which he has not taken for several weeks,he denies,family history of thyroid disease,denies,sweats,tremor or weight loss - History Source History Provided By: Patient - Past Medical History Cardio/Vascular: Yes: AFIB, CAD, CHF, HTN - Past Surgical History Past Surgical History: Yes: CABG, Stent - Alcohol/Substance Use Hx Alcohol Use: No - Smoking History Smoking history: Never smoked Have you smoked in the past 12 months: No - Social History Usual Living Arrangement: Alone Home Medications - Allergies Allergies/Adverse Reactions: Allergies Allergy/AdvReac Type Severity Reaction Status Date / Time No Known Allergies Allergy Verified 11/24/17 01:51 - Home Medications Home Medications: Ambulatory Orders Atorvastatin Ca [Lipitor] 40 mg PO HS #30 tablet 06/04/17 Valsartan [Diovan] 160 mg PO BID #60 tablet 08/10/17 hydrALAZINE HCL [Apresoline -] 25 mg PO BID #60 tablet 08/12/17 Carvedilol [Coreg] 6.25 mg PO BID 11/24/17 Isosorbide Mononitrate 30 mg PO DAILY 11/24/17 Metoprolol Succinate [Toprol XL -] 25 mg PO DAILY 11/24/17 Spironolactone [Aldactone] 25 mg PO DAILY 11/24/17 Review of Systems - Review of Systems Constitutional: reports: Weakness Eyes: reports: No Symptoms HENT: reports: No Symptoms Neck: reports: No Symptoms Cardiovascular: reports: Palpitations Respiratory: reports: SOB, SOB on Exertion Gastrointestinal: reports: No Symptoms Genitourinary: reports: No Symptoms Musculoskeletal: reports: Muscle Pain, Muscle Cramps, Muscle Weakness Neurological: reports: No Symptoms Endocrine: reports: No Symptoms Physical Exam Vital Signs: Vital Signs Temperature 97.7 F 11/28/17 06:00 Pulse Rate 62 11/28/17 06:00 Respiratory Rate 18 11/28/17 06:00 Blood Pressure 126/68 11/28/17 06:00 O2 Sat by Pulse Oximetry (%) 97 11/28/17 07:31 Constitutional: Yes: Anxious Eyes: Yes: EOM Intact HENT: Yes: Normocephalic Neck: Yes: Trachea Midline Cardiovascular: Yes: Tachycardia Respiratory: Yes: CTA Bilaterally Gastrointestinal: Yes: Normal Bowel Sounds ...Rectal Exam: Yes: Deferred Renal/: Yes: WNL Breast(s): Yes: WNL Musculoskeletal: Yes: WNL Extremities: Yes: WNL Neurological: Yes: Alert, Oriented Labs: CBC, BMP 11/28/17 06:30 Problem List - Problems (1) Euthyroid sick syndrome Code(s): E07.81 - SICK-EUTHYROID SYNDROME (2) CHF (congestive heart failure) Code(s): I50.9 - HEART FAILURE, UNSPECIFIED Qualifiers: Heart failure type: unspecified Heart failure chronicity: acute Qualified Code(s): I50.9 - Heart failure, unspecified (3) Acute on chronic combined systolic and diastolic CHF, NYHA class 2 Code(s): I50.43 - ACUTE ON CHRONIC COMBINED SYSTOLIC AND DIASTOLIC HRT FAIL (4) Acute on chronic diastolic CHF (congestive heart failure) Code(s): I50.33 - ACUTE ON CHRONIC DIASTOLIC (CONGESTIVE) HEART FAILURE (5) Atrial fibrillation with controlled ventricular response Code(s): I48.91 - UNSPECIFIED ATRIAL FIBRILLATION (6) Coronary artery disease Code(s): I25.10 - ATHSCL HEART DISEASE OF [place] CORONARY ARTERY W/O ANG PCTRS Qualifiers: Coronary Disease-Associated Artery/Lesion type: [place] artery [place] vs. transplanted heart: [place] heart Associated angina: with stable angina Qualified Code(s): I25.118 - Atherosclerotic heart disease of [place] coronary artery with other forms of angina pectoris (7) Hypertensive cardiomyopathy Code(s): I11.9 - HYPERTENSIVE HEART DISEASE WITHOUT HEART FAILURE; I42.9 - CARDIOMYOPATHY, UNSPECIFIED Qualifiers: Heart failure presence: with heart failure Qualified Code(s): I11.0 - Hypertensive heart disease with heart failure Assessment/Plan Current Active Problems Atrial fibrillation (Acute) CHF (congestive heart failure) (Acute) abnormal thyroid function test euthyroid sick vs thyroiditis Abnormal Lab Results 11/28/17 11/28/17 00:45 06:30 RDW 17.8 H Free T4 1.28 H Laboratory Results - last 24 hr 11/27/17 11/28/17 11/28/17 22:13 00:45 00:45 WBC RBC Hgb Hct MCV MCH MCHC RDW Plt Count MPV POC Glucometer 91 TSH 0.39 D Free T4 1.28 H 11/28/17 11/28/17 05:32 06:30 WBC 5.1 RBC 4.57 Hgb 12.9 Hct 38.8 MCV 85.0 MCH 28.3 MCHC 33.3 RDW 17.8 H Plt Count 165 MPV 9.2 POC Glucometer 88 TSH Free T4 plan; likely euthyroid sick syndrome recheck free t4 if normal no further intervention given likely resolution tsh unlikely hyperthyroidism as underlyling problem
--- NOTE | 2017-11-28 11:37 | PN ---
Progress Note, Physician History of Present Illness: Patient is a 82 year old male with a significant past medical history of chronic systolic congestive heart failure, coronary artery disease s/p PCI 2007 , chronic kidney disease, permanent atrial fibrillation. pulmonary hypertension , CABG Jun 2017 at [facility] dr. Camargo now admitted with 2 days of [place] and PND sx. He denies CP on my history , taken in [place]. Denies palpitations, syncope. Denies fevers or chills. On tele, he has been in AF. - Current Medication List Current Medications: Active Medications Apixaban (Eliquis -) 2.5 mg PO BID [facility] Last Admin: 11/28/17 11:15 Dose: 2.5 mg Aspirin (Ecotrin -) 81 mg PO DAILY [facility] Last Admin: 11/28/17 11:14 Dose: 81 mg Atorvastatin Calcium (Lipitor -) 40 mg PO HS [facility] Last Admin: 11/27/17 22:11 Dose: 40 mg Carvedilol (Coreg -) 3.125 mg PO BID [facility] Last Admin: 11/28/17 11:15 Dose: 3.125 mg Furosemide (Lasix Injection -) 40 mg IVPUSH DAILY [facility] Last Admin: 11/28/17 11:15 Dose: 40 mg Hydralazine HCl (Apresoline -) 25 mg PO BID [facility] Last Admin: 11/28/17 11:14 Dose: 25 mg Insulin Aspart (Novolog Vial Sliding Scale -) 1 vial SQ ACHS [facility] PRN Reason: Protocol Last Admin: 11/28/17 06:21 Dose: Not Given Isosorbide Mononitrate (Imdur -) 30 mg PO DAILY [facility] Last Admin: 11/28/17 11:15 Dose: 30 mg Spironolactone (Aldactone -) 25 mg PO DAILY [facility] Last Admin: 11/28/17 11:14 Dose: 25 mg Valsartan (Diovan -) 160 mg PO DAILY [facility] Last Admin: 11/28/17 11:14 Dose: 160 mg - Objective Vital Signs: Vital Signs Temperature 97.7 F 11/28/17 06:00 Pulse Rate 62 11/28/17 06:00 Respiratory Rate 18 11/28/17 06:00 Blood Pressure 126/68 11/28/17 06:00 O2 Sat by Pulse Oximetry (%) 97 11/28/17 07:31 Eyes: Yes: WNL, Conjunctiva Clear, EOM Intact HENT: Yes: WNL, Atraumatic, Normocephalic Neck: Yes: WNL, Supple, Trachea Midline Cardiovascular: Yes: WNL, Regular Rate and Rhythm Respiratory: Yes: WNL, Regular, CTA Bilaterally Gastrointestinal: Yes: WNL, Normal Bowel Sounds Genitourinary: Yes: WNL Musculoskeletal: Yes: WNL Extremities: Yes: WNL Edema: No Integumentary: Yes: WNL Neurological: Yes: WNL, Alert, Oriented ...Motor Strength: WNL Psychiatric: Yes: WNL Labs: CBC, BMP 11/28/17 06:30 Assessment/Plan - Problems (1) Acute on chronic combined systolic and diastolic CHF, NYHA class 2 Assessment/Plan: Now with clear lungs, elevated BUN/Cr, No JVD; dizzy. Will decrease carvedilolo to 3.125 mg bid; b/u HR (periods of sinus bradycardia to high 30s bpm). Decrease hydralazine to 25 mg bid; continue Imdur. On valsartan. Decrease furosemide to 20-40 mg qd; pt being given fluid bolus. s/p CABG 06/2017. LVEF on ECHO: 40%. Code(s): I50.43 - ACUTE ON CHRONIC COMBINED SYSTOLIC AND DIASTOLIC HRT FAIL (2) Elevated troponin Assessment/Plan: TNI 1.2; normal CK Likely demand ischemia from acute CHF, HTN. For stress MIBI. Code(s): R74.8 - ABNORMAL LEVELS OF OTHER SERUM ENZYMES (3) Hypokalemia Assessment/Plan: Keep K 4-4.5 Keep Mg 2-2.3 Keep Po4 2.5-3.5. Code(s): E87.6 - HYPOKALEMIA (4) Atrial fibrillation Assessment/Plan: On carvedilol for HR control. On apixaban for anticoagulation. Code(s): I48.91 - UNSPECIFIED ATRIAL FIBRILLATION
--- NOTE | 2017-11-28 16:31 | PN ---
Physical Exam: SUBJECTIVE: Patient seen and examined. Pt states he is well, no dizziness, lopez, cp, sob. OBJECTIVE: Vital Signs Period Temp Pulse Resp BP Sys/Ayala Pulse Ox Last 24 Hr 97.4 F-98.1 F 58-70 18-20 106-149/59-83 97-99 PE Neuro: alert, awake, cn 2-12intact Pulm: CTAB CV: s1 s2 irregular rhythm Abd: s nt nd + bs Ext: warm, no le edema Laboratory Results - last 24 hr 11/27/17 11/28/17 11/28/17 22:13 00:45 00:45 WBC RBC Hgb Hct MCV MCH MCHC RDW Plt Count MPV Sodium Potassium Chloride Carbon Dioxide Anion Gap BUN Creatinine POC Glucometer 91 Random Glucose Calcium Phosphorus Magnesium TSH 0.39 D Free T4 1.28 H 11/28/17 11/28/17 11/28/17 05:32 06:30 06:30 WBC 5.1 RBC 4.57 Hgb 12.9 Hct 38.8 MCV 85.0 MCH 28.3 MCHC 33.3 RDW 17.8 H Plt Count 165 MPV 9.2 Sodium 139 Potassium 3.5 Chloride 98 Carbon Dioxide 32 Anion Gap 9 BUN 18 D Creatinine 0.9 D POC Glucometer 88 Random Glucose 77 Calcium 8.5 Phosphorus 2.3 L D Magnesium 2.1 TSH Free T4 Active Medications Generic Name Dose Route Start Last Admin Trade Name Jermaineq PRN Reason Stop Dose Admin Apixaban 2.5 mg 11/24/17 10:00 11/28/17 11:15 Eliquis - PO 2.5 mg BID [facility] Administration Aspirin 81 mg 11/24/17 10:00 11/28/17 11:14 Ecotrin - PO 81 mg DAILY [facility] Administration Atorvastatin Calcium 40 mg 11/24/17 22:00 11/27/17 22:11 Lipitor - PO 40 mg HS [facility] Administration Carvedilol 3.125 mg 11/27/17 22:00 11/28/17 11:15 Coreg - PO 3.125 mg BID [facility] Administration Furosemide 40 mg 11/28/17 10:00 11/28/17 11:15 Lasix Injection - IVPUSH 40 mg DAILY [facility] Administration Hydralazine HCl 25 mg 11/27/17 22:00 11/28/17 11:14 Apresoline - PO 25 mg BID [facility] Administration Insulin Aspart 1 vial 05/08/18 22:00 11/28/17 06:21 Novolog Vial Sliding Scale - SQ Not Given ACHS [facility] Protocol Isosorbide Mononitrate 30 mg 11/24/17 10:00 11/28/17 11:15 Imdur - PO 30 mg DAILY [facility] Administration Spironolactone 25 mg 11/24/17 10:00 11/28/17 11:14 Aldactone - PO 25 mg DAILY [facility] Administration Valsartan 160 mg 11/26/17 10:00 11/28/17 11:14 Diovan - PO 160 mg DAILY [facility] Administration Imaging: - Previous ECHO from 08/08/17: LV moderately reduced, moderate global hypokinesis ; BLAE; mild MR; moderate TR, RVSP 40-50mmHg; mild AI; mild PI Assessment: 82 year old male with PMHx of HTN, CAD s/p stenting, s/p CABG (2016, [place]), systolic heart failure, a.fib, pHTN, CKD, who presented to the ED with shortness of breath. Plan: 1. Acute on chronic systolic heart failure - Lasix 40mg daily - Repeat ECHO: mild concentric LV hypertrophy, LV mildly dilated, LVSF mod reduced, mog global hypokinesis, mild mr, mod tr - Exercise stress for tomorrow - D/w cardiology 2. Hypertensive urgency - Controlled on decreased doses: Hydralazine to 25mg po bid, Coreg to 3.125mg po bid - Continue Imdur 30mg po daily - Continue Aldactone 25mg po daily - Continue Diovan 160mg po daily (monitor Cr closely) 3. - Resolved - Coreg 3.125mg bID - Discussed with Dr. Nagel, may need to consider pacemaker if remains bradycardic 4. CAD s/p stenting, s/p CABG - Continue ASA - Continue Imdur - Continue Bblocker - Continue Lipitor 5. YFN on CKD - Cr improving - Continue to trend Cr; monitor closely as patient is on ARB and Lasix 6. Hyperthyroidism, elevated HgbA1c (6.8) - Likely euthyroid sick syndrome per endocrine - Free t4 elevated - BGM, ISS ACHS 7. A.fib - Rate controlled - Continue Eliquis 2.5mg bid 8. Prophylaxis: - On Eliquis 9. Hypophosphatemia - Replete phos x2 ptks CODE STATUS: FULL CODE Visit type - Emergency Visit Emergency Visit: Yes ED Registration Date: 11/24/17 Care time: The patient presented to the Emergency Department on the above date and was hospitalized for further evaluation of their emergent condition. - New Patient This patient is new to me today: Yes Date on this admission: 11/28/17 - Critical Care Critical Care patient: No
[2017-11-28] MEDS ORDERED: NAPH,MB-DB/K PH,MBDB POWDER PACKET PO ONE (17:00)
[2017-11-28] MEDS: ATORVASTATIN CA 40 MG TABLET (FP) PO SCH (21:50)
[2017-11-29] MEDS: INSULIN SLIDING SCALE (NOVOLOG) 1 VIAL SQ SCH ×4 (06:17→22:27)
[2017-11-29] MEDS: ISOSORBIDE MONONITRATE 30 MG TAB.SR.24H (FP) PO SCH (11:12)
[2017-11-29] MEDS: ASPIRIN COATED 81 MG TABLET.EC PO SCH (11:12)
[2017-11-29] MEDS: APIXABAN 2.5 MG TABLET PO SCH ×2 (11:12→22:27)
[2017-11-29] MEDS: SPIRONOLACTONE 25 MG TABLET (FP) PO SCH (11:12)
[2017-11-29] MEDS: VALSARTAN 160 MG TABLET (UD) PO SCH (11:12)
[2017-11-29] MEDS: CARVEDILOL 3.125 MG TABLET (FP) PO SCH ×2 (11:12→22:27)
[2017-11-29] MEDS: hydrALAZINE HCL 25 MG TABLET (FP) PO SCH ×2 (11:12→22:27)
[2017-11-29] MEDS: FUROSEMIDE 40 MG/4 ML INJECTABLE VIAL IVPUSH SCH (11:12)
--- NOTE | 2017-11-29 11:55 | PN ---
Progress Note, Physician Chief Complaint: Pt A&Ox3; History of Present Illness: 82 year old male with pmh of systolic CHF, CAD: s/p pci /p CABG 06/2017 at [facility] with Dr. Camargo); CKD, A fib, pulm HTN, presenting to the ED via EMS with difficulty breathing. He has questionable medication compliance per his past notes. EMS on scene states his O2 was 97% on RA but still subjectively SOB. His symptoms improved after being place don [place]. Denies any nausea, vomiting, fevers, chills, cough, lyly ther issues. According to previous notes he has a home nursing aid. He was admitted 4 months prior for hypertensive urgency and chf exacerbation. During that visit they increased his Hydralazine to 25mg BID, Diovan 160mg BID, Iso mono 10mg daily, decreased lasix 20mg daily, Hydralazine added to iso mono regimen, decreased Eliquis 2.5mg BID, and Toprol xl 12.5mg daily. The patient brought a bag of his medications with him to the ED and Diovan was not in there. States he is only taking the medications in that bag. PCP is Dr. Nhung Polanco in [facility]. - Current Medication List Current Medications: Active Medications Apixaban (Eliquis -) 2.5 mg PO BID [facility] Last Admin: 11/29/17 11:12 Dose: 2.5 mg Aspirin (Ecotrin -) 81 mg PO DAILY [facility] Last Admin: 11/29/17 11:12 Dose: 81 mg Atorvastatin Calcium (Lipitor -) 40 mg PO HS [facility] Last Admin: 11/28/17 21:50 Dose: 40 mg Carvedilol (Coreg -) 3.125 mg PO BID [facility] Last Admin: 11/29/17 11:12 Dose: 3.125 mg Furosemide (Lasix Injection -) 40 mg IVPUSH DAILY [facility] Last Admin: 11/29/17 11:12 Dose: 40 mg Hydralazine HCl (Apresoline -) 25 mg PO BID [facility] Last Admin: 11/29/17 11:12 Dose: 25 mg Insulin Aspart (Novolog Vial Sliding Scale -) 1 vial SQ [facility] PRN Reason: Protocol Last Admin: 11/29/17 06:17 Dose: Not Given Isosorbide Mononitrate (Imdur -) 30 mg PO DAILY [facility] Last Admin: 11/29/17 11:12 Dose: 30 mg Spironolactone (Aldactone -) 25 mg PO DAILY [facility] Last Admin: 11/29/17 11:12 Dose: 25 mg Valsartan (Diovan -) 160 mg PO DAILY [facility] Last Admin: 11/29/17 11:12 Dose: 160 mg - Objective Vital Signs: Vital Signs Temperature 98 F 11/29/17 10:00 Pulse Rate 70 11/29/17 10:00 Respiratory Rate 18 11/29/17 10:00 Blood Pressure 124/58 11/29/17 10:00 O2 Sat by Pulse Oximetry (%) 96 11/28/17 21:00 Labs: CBC, BMP 11/28/17 06:30 11/28/17 06:30 Problem List - Problems (1) Acute on chronic combined systolic and diastolic CHF, NYHA class 2 Code(s): I50.43 - ACUTE ON CHRONIC COMBINED SYSTOLIC AND DIASTOLIC HRT FAIL (2) Elevated troponin Code(s): R74.8 - ABNORMAL LEVELS OF OTHER SERUM ENZYMES (3) Hypokalemia Code(s): E87.6 - HYPOKALEMIA (4) Atrial fibrillation Code(s): I48.91 - UNSPECIFIED ATRIAL FIBRILLATION
[2017-11-29 12:44] LABS: MAGNESIUM 2.1 mg/dL (1.8-2.4)
[2017-11-29 13:06] LABS: ANION GAP 6 (8-16); BLOOD UREA NITROGEN 44 mg/dL (7-18); CALCIUM 8.3 mg/dL (8.5-10.1); CHLORIDE 110 mmol/L (98-107); CO2 26 mmol/L (21-32); CREATININE 1.9 mg/dL (0.7-1.3); GLUCOSE,RANDOM 86 mg/dL (74-106); MAGNESIUM 2.3 mg/dL (1.8-2.4); POTASSIUM 4.1 mmol/L (3.5-5.1); SODIUM 142 mmol/L (136-145)
--- NOTE | 2017-11-29 16:58 | PN ---
Physical Exam: SUBJECTIVE: Patient seen and examined. Pt states he feels good. OBJECTIVE: Vital Signs Period Temp Pulse Resp BP Sys/Ayala Pulse Ox Last 24 Hr 97.3 F-98.4 F 60-70 18-20 110-136/58-89 96-98 PE Neuro: alert, awake, cn 2-12intact Pulm: CTAB CV: s1 s2 irregular rhythm Abd: s nt nd + bs Ext: warm, no le candida Laboratory Results - last 24 hr 11/27/17 11/27/17 11/28/17 07:10 07:10 20:26 Sodium 143 Potassium 3.7 Chloride 106 Carbon Dioxide 28 Anion Gap 9 BUN 46 H Creatinine 2.1 H POC Glucometer 136 Random Glucose 91 Calcium 8.3 L Magnesium 2.1 Cancelled 11/29/17 11/29/17 11/29/17 12:20 12:25 12:25 Sodium 142 Potassium 4.1 Chloride 110 H D Carbon Dioxide 26 Anion Gap 6 L BUN 44 H D Creatinine 1.9 H D POC Glucometer 87 Random Glucose 86 Calcium 8.3 L Magnesium 2.3 Cancelled Active Medications Generic Name Dose Route Start Last Admin Trade Name Freq PRN Reason Stop Dose Admin Apixaban 2.5 mg 11/24/17 10:00 11/29/17 11:12 Eliquis - PO 2.5 mg BID TORIN Administration Aspirin 81 mg 11/24/17 10:00 11/29/17 11:12 Ecotrin - PO 81 mg DAILY TORIN Administration Atorvastatin Calcium 40 mg 11/24/17 22:00 11/28/17 21:50 Lipitor - PO 40 mg HS TORIN Administration Carvedilol 3.125 mg 11/27/17 22:00 11/29/17 11:12 Coreg - PO 3.125 mg BID TORIN Administration Furosemide 20 mg 11/30/17 10:00 Lasix - PO DAILY TORIN Hydralazine HCl 25 mg 11/27/17 22:00 11/29/17 11:12 Apresoline - PO 25 mg BID TORIN Administration Insulin Aspart 1 vial 11/27/17 22:00 11/29/17 12:21 Novolog Vial Sliding Scale - SQ Not Given ACHS TORIN Protocol Isosorbide Mononitrate 30 mg 11/24/17 10:00 11/29/17 11:12 Imdur - PO 30 mg DAILY TORIN Administration Spironolactone 25 mg 11/24/17 10:00 11/29/17 11:12 Aldactone - PO 25 mg DAILY TORIN Administration Valsartan 160 mg 11/26/17 10:00 11/29/17 11:12 Diovan - PO 160 mg DAILY [facility] Administration Imaging: - Previous ECHO from 08/08/17: LV moderately reduced, moderate global hypokinesis ; BLAE; mild MR; moderate TR, RVSP 40-50mmHg; mild AI; mild PI Assessment: 82 year old male with PMHx of HTN, CAD s/p stenting, s/p CABG (2016, [place]), systolic heart failure, a.fib, pHTN, CKD, who presented to the ED with shortness of breath. Plan: 1. Acute on chronic systolic heart failure - Transition to Lasix 20mg, hold tomorrow for YFN - Repeat ECHO: mild concentric LV hypertrophy, LV mildly dilated, LVSF mod reduced, mog global hypokinesis, mild mr, mod tr - Stress test on hold, will confirm with cards 2. Hypertensive urgency - Controlled on decreased doses: Hydralazine to 25mg po bid, Coreg to 3.125mg po bid - Continue Imdur 30mg po daily - Continue Aldactone 25mg po daily - Continue Diovan 160mg po daily (monitor Cr closely) 3. Bradycardia - Resolved - Coreg 3.125mg bID - Discussed with Dr. Nagel, may need to consider pacemaker if remains bradycardic 4. CAD s/p stenting, s/p CABG - Continue ASA - Continue Imdur - Continue Bblocker - Continue Lipitor 5. YFN on CKD - Cr rise, however around baseline from past admissions, was on iv lasix - Hold Lasix and ARB - BMP in AM, if stable can send home with outpt following 6. Hyperthyroidism, elevated HgbA1c (6.8) - Likely euthyroid sick syndrome per endocrine - Free t4 elevated - BGM, ISS ACHS 7. A.fib - Rate controlled - Continue Eliquis 2.5mg bid 8. Prophylaxis: - On Eliquis 9. Hypophosphatemia - Check am level Visit type - Emergency Visit Emergency Visit: Yes ED Registration Date: 11/24/17 Care time: The patient presented to the Emergency Department on the above date and was hospitalized for further evaluation of their emergent condition. - New Patient This patient is new to me today: No - Critical Care Critical Care patient: No
[2017-11-29] MEDS: ATORVASTATIN CA 40 MG TABLET (FP) PO SCH (22:27)
[2017-11-30] MEDS: INSULIN SLIDING SCALE (NOVOLOG) 1 VIAL SQ SCH (06:12)
--- NOTE | 2017-11-30 09:14 | DS ---
Physical Exam: SUBJECTIVE: Patient seen and examined OBJECTIVE: Vital Signs Period Temp Pulse Resp BP Sys/Ayala Pulse Ox Last 24 Hr 97.6 F-98.4 F 53-70 18-20 110-157/58-87 98 PE Neuro: alert, awake, cn 2-12intact Pulm: CTAB CV: s1 s2 irregular rhythm Abd: s nt nd + bs Ext: warm, no le candida Laboratory Results - last 24 hr 11/27/17 11/27/17 11/28/17 07:10 07:10 00:45 Sodium 143 Potassium 3.7 Chloride 106 Carbon Dioxide 28 Anion Gap 9 BUN 46 H Creatinine 2.1 H POC Glucometer Random Glucose 91 Calcium 8.3 L Magnesium 2.1 Cancelled Free T3 2.4 11/29/17 11/29/17 11/29/17 12:20 12:25 12:25 Sodium 142 Potassium 4.1 Chloride 110 H D Carbon Dioxide 26 Anion Gap 6 L BUN 44 H D Creatinine 1.9 H D POC Glucometer 87 Random Glucose 86 Calcium 8.3 L Magnesium 2.3 Cancelled Free T3 11/29/17 11/30/17 22:26 06:11 Sodium Potassium Chloride Carbon Dioxide Anion Gap BUN Creatinine POC Glucometer 91 95 Random Glucose Calcium Magnesium Free T3 HOSPITAL COURSE: Date of Admission:11/24/17 Date of Discharge: 11/30/17 Minutes to complete discharge: 37 Discharge Summary Reason For Visit: CHEST PAIN Current Active Problems Atrial fibrillation (Acute) CHF (congestive heart failure) (Acute) Euthyroid sick syndrome (Acute) Hospital Course: Initial Hospital Course: Briefly, this 82 year old male with pmh of systolic CHF, CAD, s/p pci 2007, CKD , A fib, pulm HTN, CABG 06/2017 (@ [place] with Dr. Camargo), presented with sob (not hypoxic) x 2 days. He reported orthopnea and decreased exercise tolerance but denies cp, cough, appetite change or peripheral edema. He is known to be noncompliant with medications, however stated he has been taking all his pills except for diovan and eliquis, which he has not taken for several weeks because the eliquis dose was doubled to 5 bid and his pharmacy did not have it. Its unknown why he is not taking diovan. Last admission for chf exacerbation and HTN urgency was 4 mo ago. Condition: Stable - Instructions Diet, Activity, Other Instructions: Please return to the ED for any new, persistent, or worsening symptoms. Follow up with your PCP in 1 week Take medications only as listed on home discharge list Follow up with Dr. Nagel in office in 2 weeks Referrals: Pritesh Nagel MD [Staff Physician] - Disposition: HOME - Home Medications Comprehensive Discharge Medication List: Ambulatory Orders Atorvastatin Ca [Lipitor] 40 mg PO HS #30 tablet 06/04/17 hydrALAZINE HCL [Apresoline -] 25 mg PO BID #60 tablet 08/12/17 Spironolactone [Aldactone -] 25 mg PO DAILY 11/24/17 Apixaban [Eliquis -] 2.5 mg PO BID #60 tab 11/30/17 Carvedilol [Coreg -] 3.125 mg PO BID #60 tablet 11/30/17 Furosemide [Lasix -] 20 mg PO DAILY #30 tablet 11/30/17 Isosorbide Mononitrate [Imdur -] 30 mg PO DAILY #30 tab.sr.24h 11/30/17 Valsartan [Diovan] 160 mg PO DAILY #60 tablet 11/30/17
[2017-11-30] MEDS: hydrALAZINE HCL 25 MG TABLET (FP) PO SCH (09:27)
[2017-11-30] MEDS: ISOSORBIDE MONONITRATE 30 MG TAB.SR.24H (FP) PO SCH (09:27)
[2017-11-30] MEDS: SPIRONOLACTONE 25 MG TABLET (FP) PO SCH (09:27)
[2017-11-30] MEDS: ASPIRIN COATED 81 MG TABLET.EC PO SCH (09:27)
[2017-11-30] MEDS: CARVEDILOL 3.125 MG TABLET (FP) PO SCH (09:28)
[2017-11-30] MEDS: APIXABAN 2.5 MG TABLET PO SCH (09:28)
[2017-11-30] MEDS ORDERED: FUROSEMIDE 20 MG TABLET (FP) PO SCH (10:00)
[2017-11-30 10:02] VITALS: BP 152/86; PULSE 60; TEMP 98
== END 2017-11-30 10:30 | disposition home or self-care (01) | DRG 291 ==
LOC: JER 01:41 → JERBED 05:33 → UNDOADMIN 05:36 → JERBED 05:36 → J4W 15:55
PROVIDERS: ADMIT Internal Medicine; ATTEND Nurse Practitioner Acute Care
DX: I13.0 Hypertensive heart and chronic kidney disease with heart failure and stage 1 through stage 4 chronic kidney disease, or unspecified chronic kidney disease (principal); I50.23 Acute on chronic systolic (congestive) heart failure; N17.9 Acute kidney failure, unspecified; I16.0 Hypertensive urgency; I25.118 Atherosclerotic heart disease of native coronary artery with other forms of angina pectoris; I48.91 Unspecified atrial fibrillation; I27.20 Pulmonary hypertension, unspecified; E78.00 Pure hypercholesterolemia, unspecified; E07.81 Sick-euthyroid syndrome; R74.8 Abnormal levels of other serum enzymes; I08.3 Combined rheumatic disorders of mitral, aortic and tricuspid valves; I42.8 Other cardiomyopathies; N18.3 Chronic kidney disease, stage 3 (moderate); E83.39 Other disorders of phosphorus metabolism; E05.90 Thyrotoxicosis, unspecified without thyrotoxic crisis or storm; R00.1 Bradycardia, unspecified; E87.6 Hypokalemia; Z95.5 Presence of coronary angioplasty implant and graft; Z95.1 Presence of aortocoronary bypass graft; Z91.14 Patient's other noncompliance with medication regimen
CPT/HCPCS: 36415; 71045-TC-FY; 80048; 80053; 80061; 81003; 81015; 82550; 82962; 83036; 83721; 83735; 83880; 84100; 84439; 84443; 84481; 84484; 85025; 85027; 93005; 93010; 93306-TC; 97116-GP; 97161-GP; 99285-25; J7620

== ENCOUNTER 2018-09-03 11:30 | Inpatient (IN) | payer OTHER ==
--- NOTE | 2018-09-03 11:53 | PDOC ---
History of Present Illness - General Chief Complaint: Blood Pressure Problem Stated Complaint: Blood Pressure Problem Time Seen by Provider: 09/03/18 11:53 History Source: Patient Exam Limitations: No Limitations - History of Present Illness Initial Comments: 83 yo M w a hx of systolic CHF, CAD, s/p pci 2007, CKD, A fib, pulm HTN, CABG (@ [place] with Dr. Camargo), who bibems due to SOB, difficulty breathing and elevated blood pressure. The patient reports he has not been able to lie down flat recently. He endorses needing extra pillows to fall asleep at night. admits to significant dyspnea on exertion and decreased performance with everyday tasks recently. He was having a very hard time breathing last night and could not sleep so he called the ambulance and came to the hospital. He did not take his usual meds for the past 12 hours because of his concerns for breathing and blood pressure. He also endorses some burning when he pees for the past two days. Endorses blurry vision on and off behind left eye. He denies recent fevers, chills, infections, headache, abdominal pain, numbness , weakness, recent travel, tingling, frequency, or urgency. PCP: Dr. Lew in [place] PSH: CABG Social Hx: Denies smoking, drinking, or other substance usage Allergies: NKA, NKDA 09/03/18 16:02 Past History - Past Medical History Allergies/Adverse Reactions: Allergies Allergy/AdvReac Type Severity Reaction Status Date / Time No Known Allergies Allergy Verified 11/24/17 01:51 Home Medications: Ambulatory Orders Atorvastatin Ca [Lipitor] 40 mg PO HS #30 tablet 06/04/17 hydrALAZINE HCL [Apresoline -] 25 mg PO BID #60 tablet 08/12/17 Apixaban [Eliquis -] 2.5 mg PO BID #60 tab 11/30/17 Carvedilol [Coreg -] 3.125 mg PO BID #60 tablet 11/30/17 Furosemide [Lasix -] 20 mg PO DAILY #30 tablet 11/30/17 Isosorbide Mononitrate [Imdur -] 30 mg PO DAILY #30 tab.sr.24h 11/30/17 Anemia: No Asthma: No Cancer: No Cardiac Disorders: Yes CVA: No COPD: No CHF: Yes Dementia: No Diabetes: No GI Disorders: No Disorders: No HTN: Yes Hypercholesterolemia: Yes Liver Disease: No Seizures: No Thyroid Disease: No - Surgical History Abdominal Surgery: No Appendectomy: No Cardiac Surgery: Yes (S/P CABG 06/2017) Cholecystectomy: No Lung Surgery: No Neurologic Surgery: No Orthopedic Surgery: No - Immunization History Immunization Up to Date: Yes - Suicide/Smoking/Psychosocial Hx Smoking History: Never smoked Have you smoked in the past 12 months: No Hx Alcohol Use: No Drug/Substance Use Hx: No Substance Use Type: None Hx Substance Use Treatment: No Review of Systems - Review of Systems Able to Perform ROS?: Yes Comments:: CONSTITUTIONAL: Present: Fatigue Absent: fever, no chills EYES: Absent: visual changes ENT: Absent: ear pain, no sore throat CARDIOVASCULAR: Present: Chest pain Absent: no palpitations RESPIRATORY: Present: Cough, SOB GI: Absent: abdominal pain, no nausea, no vomiting, no constipation, no diarrhea GENITOURINARY: Absent: dysuria, no frequency, no hematuria MUSKULOSKELETAL: Absent: back pain, no arthralgia, no myalgia SKIN: Absent: rash NEURO: Absent: headache *Physical Exam - Physical Exam Comments: GENERAL: Well developed, well nourished. Awake and alert. No acute distress. HEENT: Normocephalic, atraumatic. PERRLA, EOMI. No conjunctival pallor. Sclera are non- icteric. Moist mucous membranes. Oropharynx is clear. NECK: Supple. Full ROM. No JVD. No lymphadenopathy. CARDIOVASCULAR: Regular rate and irregular rhythm. S3 and S4. Pansystolic blowing murmur. Distal pulses are 1+ and symmetric. PULMONARY: clear evidence of respiratory distress. There are rhonchi on the right lower lung field. Slight crackles at the left base. ABDOMINAL: Soft. Non-tender. Non-distended. No rebound or guarding. No organomegaly. Normoactive bowel sounds. MUSCULOSKELETAL Normal range of motion at all joints. No bony deformities or tenderness. No CVA tenderness. EXTREMITIES: 2+ edema in the left leg. No edema in the right leg. No cyanosis. No clubbing. No calf tenderness. SKIN: Warm and dry. Normal capillary refill. No rashes. No jaundice. NEUROLOGICAL: Alert, awake, appropriate. Cranial nerves 2-12 intact. Normal speech. PSYCHIATRIC: Cooperative. Good eye contact. Appropriate mood and affect. ED Treatment Course - LABORATORY CBC & Chemistry Diagram: 09/03/18 12:34 09/03/18 12:34 Medical Decision Making - Medical Decision Making 83 yo M w a hx of systolic CHF, CAD, s/p pci 2007, CKD, A fib, pulm HTN, CABG (@ [place] with Dr. Camargo), who bibems due to SOB, difficulty breathing and elevated blood pressure. The patient reports he has not been able to lie down flat recently. He endorses needing extra pillows to fall asleep at night. admits to significant dyspnea on exertion and decreased performance with everyday tasks recently. He was having a very hard time breathing last night and could not sleep so he called the ambulance and came to the hospital. He did not take his usual meds for the past 12 hours because of his concerns for breathing and blood pressure. He also endorses some burning when he pees for the past two days. VS: Hypertensive, tachypneic, hypoxic DDx IBNLT: Heart failure, PNA, pulm edema vs pleural effusion, ACS/OH, Hypertensive urgency vs emergency. Plan: Labs, urine, CXR, EKG, Bipap, cardio consult, re-assess. CXR shows right sided pleural effusion. - Will obtain rectal temp if elevated will start Abx. Labs: CMP Sodium 146 mmol/L (136-145) H 09/03/18 12:34 Potassium 3.6 mmol/L (3.5-5.1) 09/03/18 12:34 Chloride 114 mmol/L (98-107) H 09/03/18 12:34 Carbon Dioxide 23 mmol/L (21-32) 09/03/18 12:34 Anion Gap 9 MMOL/L (8-16) 09/03/18 12:34 BUN 20 mg/dL (7-18) H 09/03/18 12:34 Creatinine 1.7 mg/dL (0.55-1.3) H 09/03/18 12:34 Creat Clearance w eGFR 38.59 (>60) 09/03/18 12:34 Random Glucose 99 mg/dL (74-106) 09/03/18 12:34 Calcium 8.7 mg/dL (8.5-10.1) 09/03/18 12:34 Magnesium 2.1 mg/dL (1.8-2.4) 09/03/18 12:34 Total Bilirubin 0.8 mg/dL (0.2-1) 09/03/18 12:34 AST 41 U/L (15-37) H 09/03/18 12:34 ALT 31 U/L (13-61) 09/03/18 12:34 Alkaline Phosphatase 123 U/L (45-117) H 09/03/18 12:34 Creatine Kinase 156 U/L (26-308) 09/03/18 12:34 Creatine Kinase Index 2.9 % (0.0-5.0) 09/03/18 12:34 CK-MB (CK-2) 4.6 ng/mL (0.5-3.6) H 09/03/18 12:34 Troponin I 1.29 ng/ml (0.00-0.05) H* 09/03/18 12:34 B-Natriuretic Peptide 05269.0 pg/ml (5-450) H 09/03/18 12:34 Total Protein 6.7 g/dl (6.4-8.2) 09/03/18 12:34 Albumin 3.4 g/dl (3.4-5.0) 09/03/18 12:34 Consulting cards: Dr. Nagel for this patient's elevated trop and BNP. Dr. Nagel has been consulted - he recommends giving the patient's normal dose of apixaban and then admitting him to telemetry. - Putting patient on BiPap, giving Nitro and lasix for heart failure treatment. - Will admit to telemetry. *DC/Admit/Observation/Transfer Diagnosis at time of Disposition: Hypertensive emergency, Acute exacerbation of CHF (congestive heart failure), Elevated troponin, Hypertensive cardiomyopathy, Coronary artery disease, Acute on chronic diastolic CHF (congestive heart failure) - Discharge Dispostion Condition at time of disposition: Guarded Decision to Admit order: Yes - Referrals - Patient Instructions - Post Discharge Activity
[2018-09-03] MEDS ORDERED: NITROGLYCERIN SUBLINGUAL 1/150 0.4 MG TAB SL ONE (12:30)
[2018-09-03 12:32] VITALS: BMI 29.2
[2018-09-03] MEDS ORDERED: NITROGLYCERIN SUBLINGUAL 1/150 0.4 MG TAB ONE (12:32)
[2018-09-03] MEDS ORDERED: FUROSEMIDE 40 MG/4 ML INJECTABLE VIAL IVPUSH ONE (12:32)
--- NOTE | 2018-09-03 12:43 | PDOC ---
Attending Attestation - Resident Resident Name: Davey Diamond - ED Attending Attestation I have performed the following: I have examined & evaluated the patient, The case was reviewed & discussed with the resident, I agree w/resident's findings & plan, Exceptions are as noted - HPI HPI: 09/03/18 12:35 83y M hx of HL, afib on eliquis, htn, cad sp CABG presents with sob, pt notes he felt vasquez, orthopnea last night, denies any cp, abd pain, diaphorsis, nausea/ vomiting. Pt does endorse increased leg swelling in the L leg for the past 3 days. pt ntoes he did not take his medications last night as he was not sure if his symptoms are due to his medications. GENERAL: The patient is awake, alert, and fully oriented, HEAD: Normocephalic, atraumatic. EYES: extraocular movements intact, sclera anicteric, conjunctiva clear. ENT: Normal voice, Moist mucous membranes. NECK: Normal range of motion, supple LUNGS: scant rales at R bases, clear otherwise, tachypneic with speaking HEART: Regular rate and rhythm, normal S1 and S2 without murmur, rub or gallop. ABDOMEN: Soft, nontender, normoactive bowel sounds. No guarding, no rebound. . No CVA tenderness EXTREMITIES: Normal range of motion, +3pitting edema b/l in LE NEUROLOGICAL: No facial assymetry, Normal speech, PSYCH: Normal mood, normal affect. SKIN: Warm, Dry, normal turgor, pts vitals noted significantly hypertensive ddx - mild pulm congestion/ape, pneumonia, acs will ck ekg, cxr, labs will place on bipap bp control - will give ntg, and his meds that he skilpped willr eassess anticipate admission - Physicial Exam PE: 09/12/18 08:48 se above - Critical Care Time Total Critical Care Time: 35 Critical Care Statement: The care of this patient involved high complexity decision making to prevent further life threatening deterioration of the patient 's condition and/or to evaluate & treat vital organ system(s) failure or risk of failure. - Medical Decision Making 09/03/18 13:44 the patients labs reviewed bnp elevated cxr noted for R pleural effusion with some fluid in the fissure, cardiac silouette is quite large - will ck bedside US to r/o pericardial effusion 09/03/18 14:15 no signs of pericardial effusion on bedside US pts trop is elevated to 1.2 --> per prior labs in 12/07, seems to run in the 1.2 range bnp elevated, but also seems at baseline will admit for further management
[2018-09-03] MEDS ORDERED: FUROSEMIDE 40 MG/4 ML INJECTABLE VIAL ONE (12:49)
[2018-09-03 13:01] LABS: BASO % 0.8 % (0-2.0); HEMATOCRIT 36.4 % (35.4-49); HEMOGLOBIN 12.1 GM/dL (11.7-16.9); LYMPH % 22.8 % (8-40); MCH 28.6 pg (25.7-33.7); MCHC 33.3 g/dl (32.0-35.9); MEAN CELL VOLUME 85.6 fl (80-96); MEAN PLT VOLUME 8.6 fl (7.5-11.1); MONO % 10.9 % (3.8-10.2); NEUT % 63.5 % (42.8-82.8); PLATELET COUNT 129 K/MM3 (134-434); RBC 4.25 M/mm3 (4.00-5.60); RDW 16.6 % (11.9-15.9); WHITE BLOOD COUNT 3.9 K/mm3 (4.0-10.0)
[2018-09-03] MEDS ORDERED: hydrALAZINE HCL 25 MG TABLET (FP) PO ONE ×2 (13:13→17:04)
[2018-09-03] MEDS ORDERED: hydrALAZINE HCL 25 MG TABLET (FP) ONE ×3 (13:14→23:39)
[2018-09-03 13:34] LABS: INR 1.16 (0.83-1.09); PROTHROMBIN TIME (PATIENT) 13.7 SEC (9.7-13.0)
[2018-09-03 13:34] LABS: URINE APPEARANCE CLEAR; URINE BILIRUBIN NEGATIVE (<2.0 mg/dL); URINE COLOR STRAW; URINE GLUCOSE (UA) NEGATIVE (NEGATIVE); URINE KETONE NEGATIVE (NEGATIVE); URINE LEUK ESTERASE NEGATIVE (NEGATIVE); URINE NITRITE NEGATIVE (NEGATIVE); URINE PROTEIN 2+ (NEGATIVE); URINE UROBILINOGEN NEGATIVE mg/dL (0.2-1.0)
[2018-09-03 13:38] LABS: ALBUMIN 3.4 g/dl (3.4-5.0); ALK PHOS 123 U/L (45-117); ANION GAP 9 MMOL/L (8-16); BILIRUBIN,TOTAL 0.8 mg/dL (0.2-1); BLOOD UREA NITROGEN 20 mg/dL (7-18); CALCIUM 8.7 mg/dL (8.5-10.1); CHLORIDE 114 mmol/L (98-107); CO2 23 mmol/L (21-32); CREATININE 1.7 mg/dL (0.55-1.3); GLUCOSE,RANDOM 99 mg/dL (74-106); MAGNESIUM 2.1 mg/dL (1.8-2.4); POTASSIUM 3.6 mmol/L (3.5-5.1); SGOT/AST 41 U/L (15-37); SGPT/ALT 31 U/L (13-61); SODIUM 146 mmol/L (136-145); TOT PROT 6.7 g/dl (6.4-8.2)
[2018-09-03] MEDS ORDERED: VALSARTAN 160 MG TABLET (UD) PO ONE (16:17)
[2018-09-03] MEDS ORDERED: CARVEDILOL 3.125 MG TABLET (FP) PO ONE (16:17)
--- NOTE | 2018-09-03 16:24 | EKG ---
Test Reason : Blood Pressure : / mmHG Vent. Rate : 073 BPM Atrial Rate : 075 BPM P-R Int : 000 ms QRS Dur : 104 ms QT Int : 422 ms P-R-T Axes : 000 015 163 degrees QTc Int : 464 ms ATRIAL FIBRILLATION MINIMAL VOLTAGE CRITERIA FOR LVH, MAY BE NORMAL VARIANT POSSIBLE INFERIOR INFARCT (CITED ON OR BEFORE 30-OCT-2016) CANNOT RULE OUT ANTERIOR INFARCT , AGE UNDETERMINED ABNORMAL ECG WHEN COMPARED WITH ECG OF 27-NOV-2017 13:27, QUESTIONABLE CHANGE IN INITIAL FORCES OF INFERIOR LEADS NONSPECIFIC T WAVE ABNORMALITY NO LONGER EVIDENT IN ANTERIOR LEADS Confirmed by Luis Alfredo Sr ([id number]) on 09/03/2018 4:23:40 PM Referred By: Confirmed By:Luis Alfredo Sr
[2018-09-03] MEDS ORDERED: VALSARTAN 80 MG TABLET (UD) ONE (17:04)
--- NOTE | 2018-09-03 17:21 | HP ---
CHIEF COMPLAINT: PCP: Dr. Lew in [place] HISTORY OF PRESENT ILLNESS: 83 yo M w a hx of systolic CHF, CAD, s/p pci 2007, CKD, HLD, A fib (on low dose eliquis), pulm HTN, CABG 06/2017 (@ [place] with Dr. Camargo), p/w SOB, increased leg swelling in the L leg, and elevated blood pressure for the past few days w/ L eye blurry vision. The patient reports he has not been able to lie down flat recently has required extra pillows to fall asleep at night. Pt also has had BRENNER and decreased performance with everyday tasks recently. He was having a very hard time breathing last night and could not sleep so he called the ambulance and came to the hospital. He did not take his usual meds for the past 12 hours because of his concerns for breathing and blood pressure. He also endorses some burning when he pees for the past two days. Of note, pt was last seen/admitted here 11/2017 for similar presentation. At that time lasix PO dose was decreased from 40 to 20mg. Echo showed LVSF mod reduced EF of ~44%, mild concentric LV hypertrophy, LV mildly dilated, , mod global hypokinesis, mild mr, mod tr. Pt at last admission was on diovan and aldactone, but is no longer taking it. f/w cardio, [facility]. per pt, last office visit 2 mo and everything was ok. Of note, Endorses blurry vision on and off behind left eye for the past day or so denies recent fevers, chills, infections, headache, abdominal pain, numbness, weakness, recent travel, tingling, frequency, or urgency, cp, n/v/d, hematuria. ER course was notable for: (1) BP 236/128, neg DVT LLE on duplex, CXR w/ R pleural effusion, no signs of pericardial effusion on bedside US (2)nitrostat .4mg, coreg, diovan 160, hydralazine 25mg po, lasix 40 IV (3) trop 1.29, BNP 10,626, UA neg Recent Travel: PAST MEDICAL HISTORY: per hpi PAST SURGICAL HISTORY: per hpi Social History: Smoking:denies Alcohol:denies Drugs: denies Family History: HTN Allergies No Known Allergies Allergy (Verified 11/24/17 01:51) HOME MEDICATIONS: Home Medications Medication Instructions Recorded Atorvastatin Ca [Lipitor] 40 mg PO HS #30 tablet 06/04/17 hydrALAZINE HCL [Apresoline -] 25 mg PO BID #60 tablet 08/12/17 Apixaban [Eliquis -] 2.5 mg PO BID #60 tab 11/30/17 Carvedilol [Coreg -] 3.125 mg PO BID #60 tablet 11/30/17 Furosemide [Lasix -] 20 mg PO DAILY #30 tablet 11/30/17 Isosorbide Mononitrate [Imdur -] 30 mg PO DAILY #30 tab.sr.24h 11/30/17 REVIEW OF SYSTEMS as per hpi PHYSICAL EXAMINATION Vital Signs - 24 hr 09/03/18 09/03/18 09/03/18 11:30 12:55 13:30 Temperature 97.8 F Pulse Rate 58 L Pulse Rate [ 66 Apical] Respiratory 16 20 Rate Blood Pressure 236/128 H Blood Pressure 217/104 H [Left Arm] O2 Sat by Pulse 100 96 97 Oximetry (%) 09/03/18 09/03/18 14:10 15:17 Temperature Pulse Rate Pulse Rate [ 58 L 58 L Apical] Respiratory 22 H 20 Rate Blood Pressure Blood Pressure 183/100 H 185/105 H [Left Arm] O2 Sat by Pulse 100 Oximetry (%) GENERAL: AOX3 NAD. on NC HEAD: NCAT EYES: Pupils round and reactive to light, although L is little sluggish compared to R, extraocular movements intact, sclera anicteric, conjunctiva clear. No lid lag. EARS, NOSE, THROAT: Ears normal, nares patent, oropharynx clear without exudates. MMM NECK: Normal range of motion, supple without lymphadenopathy, JVD, or masses. LUNGS: L side CTA, mild crackles at R base HEART: Regular rate and irregular rhythm, normal S1 and S2 without m/R/G ABDOMEN: Soft, NTND normoactive bowel sounds, no guarding, no rebound, no masses. MUSCULOSKELETAL: Normal range of motion at all joints. No bony deformities or tenderness. UPPER EXTREMITIES: 2+ pulses, warm, well-perfused. No cyanosis. No clubbing. No peripheral edema. LOWER EXTREMITIES: 2+ pulses, warm, well-perfused. No calf tenderness. 1+ peripheral edema in upper LLE near knee, no rash or redness. RLE no edema. NEUROLOGICAL: Cranial nerves II-XII intact. Normal speech. PSYCHIATRIC: Cooperative. Good eye contact. Appropriate mood and affect. SKIN: Warm, dry, normal turgor, no rashes or lesions noted, normal capillary refill. Laboratory Results - last 24 hr 09/03/18 09/03/18 09/03/18 12:34 12:34 12:34 WBC 3.9 L RBC 4.25 Hgb 12.1 Hct 36.4 MCV 85.6 MCH 28.6 MCHC 33.3 RDW 16.6 H Plt Count 129 L D MPV 8.6 Absolute Neuts (auto) 2.5 Neutrophils % 63.5 Lymphocytes % 22.8 Monocytes % 10.9 H Eosinophils % 2.0 Basophils % 0.8 Nucleated RBC % 0 PT with INR 13.70 H INR 1.16 H Sodium 146 H Potassium 3.6 Chloride 114 H Carbon Dioxide 23 Anion Gap 9 BUN 20 H Creatinine 1.7 H Creat Clearance w eGFR 38.59 Random Glucose 99 Calcium 8.7 Magnesium 2.1 Total Bilirubin 0.8 AST 41 H ALT 31 Alkaline Phosphatase 123 H Creatine Kinase 156 Creatine Kinase Index 2.9 CK-MB (CK-2) 4.6 H Troponin I 1.29 H* B-Natriuretic Peptide 80616.0 H Total Protein 6.7 Albumin 3.4 Urine Color Urine Appearance Urine pH Ur Specific [place] Urine Protein Urine Glucose (UA) Urine Ketones Urine Blood Urine Nitrite Urine Bilirubin Urine Urobilinogen Ur Leukocyte Esterase Urine WBC (Auto) Urine RBC (Auto) 09/03/18 12:36 WBC RBC Hgb Hct MCV MCH MCHC RDW Plt Count MPV Absolute Neuts (auto) Neutrophils % Lymphocytes % Monocytes % Eosinophils % Basophils % Nucleated RBC % PT with INR INR Sodium Potassium Chloride Carbon Dioxide Anion Gap BUN Creatinine Creat Clearance w eGFR Random Glucose Calcium Magnesium Total Bilirubin AST ALT Alkaline Phosphatase Creatine Kinase Creatine Kinase Index CK-MB (CK-2) Troponin I B-Natriuretic Peptide Total Protein Albumin Urine Color Straw Urine Appearance Clear Urine pH 7.0 Ur Specific [place] 1.005 L Urine Protein 2+ H Urine Glucose (UA) Negative Urine Ketones Negative Urine Blood Negative Urine Nitrite Negative Urine Bilirubin Negative Urine Urobilinogen Negative Ur Leukocyte Esterase Negative Urine WBC (Auto) <1 Urine RBC (Auto) 1 ASSESSMENT/PLAN: 83 yo M w a hx of systolic CHF, CAD, s/p pci 2007, CKD, HLD, A fib (on low dose eliquis), pulm HTN, CABG 06/2017 (@ [place] with Dr. Camargo), p/w SOB, increased leg swelling in the L leg, and elevated blood pressure for the past few days w/ L eye blurry vision. systolic CHF exacerbation - possibly 2/2 medication noncompliance and unctl HTN. no fevers or white count noted and no evidence of infx on hx. LLE Duplex neg for DVT. CXR w/ R pleural effusion. bedside US neg for pericardial effusion BNP 10,626 but also seems at baseline (has had higher BNPs in 20,000s) s/p lasix 40 IV in ED w/ good response. Lung exam has improved on L side s/p nitrostat .4mg, coreg, diovan 160, hydralazine 25mg po in ED -cardiology consult -tele monitoring -strict I/O -daily weights -low sodium diet, restrict fluid to <2L -c/w home dose coreg, imdur, and hydralazine -2L O2 NC can give bipap prn -Will f/u w/ cardio about considering echo and restarting diovan (unclear why pt is no longer taking) -Echo 11/2017: LVSF mod reduced EF of ~44%, mild conc LV hypertrophy, LV mildly dilated, mod global hypokinesis, mild mr, mod tr. Hypertensive Emergency - 236/128 w/ L eye blurry vision. BP improved to 185/ 105 s/p nitrostat .4mg, coreg, diovan 160, hydralazine 25mg po in ED -c/w home dose coreg, imdur, and hydralazine -Will f/u w/ cardio restarting diovan (unclear why pt is no longer taking) -will give stat dose hydralazine now -monitor BP -CT Head to r/o bleed/stroke or other acute pathology given blurry vision and sluggish on PE Dysuria -UA neg -f/u ucx CAD s/p stenting, s/p CABG w/ elevated trop trop 1.29 - unlikely ACS event. per prior labs in 12/07, seems to run in the 1.2 range. chronically elevated 2/2 CKD w/ decreased clearance. EKG A fib, rate 73, no new/acute ST T wave changes/ ischemic changes other than questionable change in initial forces of inferior leads as compared to prior per EKG report -c/w home dose coreg, imdur, and Lipitor -monitor for any new cp CKD - cr 1.7 at baseline -monitor Cr A.fib - Rate controlled - Continue Eliquis 2.5mg bid -c/w BB FEN PO hydration, No IVF replete prn low sodium/cholesterol/fat diet, restrict fluid to <2L Ppx Eliquis 2.5 bid Dispo: admit to tele Visit type - Emergency Visit Emergency Visit: Yes Care time: The patient presented to the Emergency Department on the above date and was hospitalized for further evaluation of their emergent condition. - New Patient This patient is new to me today: Yes Date on this admission: 09/03/18 - Critical Care Critical Care patient: No
--- NOTE | 2018-09-03 18:28 | CON.CARD ---
Consult Consult Specialty:: cardiology Reason for Consultation:: shortness of breath - History of Present Illness Chief Complaint: shortness of breath History of Present Illness: 83y M hx of afib on eliquis, htn, CAD (PCI 2006; + stress mibi--> CABG late 2016), hyperlipidemia, depression, presents with sob, pt notes he felt vasquez and orthopnea last night, denies any cp, abd pain, diaphorsis, nausea/vomiting. Pt does endorse increased leg swelling in the L leg for the past 3 days. pt ntoes he did not take his medications last night as he was not sure if his symptoms are due to his medications. - History Source History Provided By: Patient, Medical Record Limitations to Obtaining History: No Limitations - Past Medical History Cardio/Vascular: Yes: AFIB, CAD, CHF, HTN Pulmonary: Yes: Bronchitis Renal/: Yes: Renal Inusuff - Past Surgical History Past Surgical History: Yes: CABG, Stent - Alcohol/Substance Use Hx Alcohol Use: No - Smoking History Smoking history: Never smoked Have you smoked in the past 12 months: No - Social History Usual Living Arrangement: Alone Home Medications - Allergies Allergies/Adverse Reactions: Allergies Allergy/AdvReac Type Severity Reaction Status Date / Time No Known Allergies Allergy Verified 11/24/17 01:51 - Home Medications Home Medications: Ambulatory Orders Atorvastatin Ca [Lipitor] 40 mg PO HS #30 tablet 06/04/17 hydrALAZINE HCL [Apresoline -] 25 mg PO BID #60 tablet 08/12/17 Apixaban [Eliquis -] 2.5 mg PO BID #60 tab 11/30/17 Carvedilol [Coreg -] 3.125 mg PO BID #60 tablet 11/30/17 Furosemide [Lasix -] 20 mg PO DAILY #30 tablet 11/30/17 Isosorbide Mononitrate [Imdur -] 30 mg PO DAILY #30 tab.sr.24h 11/30/17 Family Disease History - Family Disease History Family History: Denies Review of Systems - Review of Systems Constitutional: reports: No Symptoms Eyes: reports: No Symptoms - Risk Factors Known Risk Factors: Yes: Age, Gender, Hypercholesterolemia, Hypertension, Other (CABG) Vital Signs: Vital Signs Temperature 97.8 F 09/03/18 11:30 Pulse Rate 57 L 09/03/18 17:22 Respiratory Rate 20 09/03/18 17:22 Blood Pressure 196/105 H 09/03/18 17:22 O2 Sat by Pulse Oximetry (%) 98 09/03/18 17:22 Constitutional: Yes: Anxious Eyes: Yes: WNL HENT: Yes: WNL Neck: Yes: WNL Respiratory: Yes: Diminished Gastrointestinal: Yes: Soft Renal/: No: Anuria Cardiovascular: Yes: Pulse Irregular JVD: No Carotid Bruit: No PMI: Displaced Heart Sounds: Yes: S1 (varies in intensity), Split S2 Murmur: Yes: Systolic Murmur, Grade 2 Musculoskeletal: Yes: Muscle Weakness Edema: No Peripheral Pulses WNL: No Peripheral Pulses: 1+ Left Doralis Pedis, 1+ Right Dorsalis Pedis Neurological: Yes: Alert, Oriented, Weakness Psychiatric: Yes: Alert, Oriented - Other Data Labs, Other Data: CBC, BMP 09/03/18 12:34 09/03/18 12:34 INR, PTT INR 1.16 (0.83-1.09) H 09/03/18 12:34 Troponin, BNP 09/03/18 12:34 Troponin I 1.29 H* B-Natriuretic Peptide 09021.0 H Troponin, BNP 09/03/18 12:34 Troponin I 1.29 H* B-Natriuretic Peptide 15436.0 H Abnormal Lab Results 09/04/18 09/05/18 09/05/18 15:00 06:30 06:30 WBC 3.4 L Hgb 11.4 L Hct 34.8 L RDW 16.7 H Plt Count 125 L Monocytes % 10.6 H Potassium 3.3 L Chloride 111 H 112 H Anion Gap 7 L 6 L BUN 22 H 23 H Creatinine 1.8 H 1.5 H Calcium 8.3 L 8.4 L Total Protein 6.3 L Albumin 3.0 L Imaging - Results Chest X-ray: Image Reviewed EKG: Image Reviewed Problem List - Problems (1) Hx of CABG Assessment/Plan: [facility] Code(s): Z95.1 - PRESENCE OF AORTOCORONARY BYPASS GRAFT (2) Elevated troponin Assessment/Plan: 1.29 (largely unchanged since 10/2016); f/ serially. Acute/chronic systolic CHF, CKD may contribute to chronic elevation. S/p CABG 2017. Code(s): R74.8 - ABNORMAL LEVELS OF OTHER SERUM ENZYMES (3) Atrial fibrillation Assessment/Plan: On carvedilol for AF, systolic CHF, HTN. Periods of slow verntricular response. On apixaban for anticoagulation (restart; pt had apparently stopped it yesterday ). Code(s): I48.91 - UNSPECIFIED ATRIAL FIBRILLATION (4) Chronic kidney disease (CKD) Code(s): N18.9 - CHRONIC KIDNEY DISEASE, UNSPECIFIED Qualifiers: Chronic kidney disease stage: stage 3 (moderate) Qualified Code(s): N18.3 - Chronic kidney disease, stage 3 (moderate) (5) HTN (hypertension) Assessment/Plan: Restart all antihypertensives (carvedilol, hydralazine + Imdur, valsartan; furosemide) Add spironolactone 25 mg daily for HTN, reduced LVEF. F/u BUN/Cr and electrolytes carefully.. Code(s): I10 - ESSENTIAL (PRIMARY) HYPERTENSION (6) Systolic CHF Assessment/Plan: Moderately reduced LVEF on 2017 ECHO and again on 08/2018 ECHO. Medications at home include carvedilol, valsartan, hydralazine + Imdur, furosemide prn. Start spironolactone. BNP elevation is largely unchanged from previous admissions since 10/2016 ( presently 10,640). F/u Is and Os, daily weight, BUN/Cr, electrolytes. Code(s): I50.20 - UNSPECIFIED SYSTOLIC (CONGESTIVE) HEART FAILURE (7) Moderate to severe pulmonary hypertension Code(s): I27.20 - PULMONARY HYPERTENSION, UNSPECIFIED
--- NOTE | 2018-09-03 19:22 | PN ---
Teaching Attending Note Name of Resident: Chris Padilla ATTENDING PHYSICIAN STATEMENT I saw and evaluated the patient. I reviewed the resident's note and discussed the case with the resident. I agree with the resident's findings and plan as documented. SUBJECTIVE: Feeling better after IV Lasix and NTG in ED - less SOB. No chest pain/palps/cough/sputum/hemoptysis. OBJECTIVE: Afebrile, Hemodynamically Stable. Last Vital Signs Temp Pulse Resp BP Pulse Ox 97.8 F 61 20 161/64 98 09/03/18 11:30 09/03/18 18:45 09/03/18 17:22 09/03/18 18:45 09/03/18 17:22 HEENT - Atraumatic, Normocephalic. Heart - S1, S2, soft SM, irregular Lungs - decreased air entry bibabasally R>L Abdomen - Soft, non-tender. Bowel Sounds normal. Extremities - mild edema LLE. No calf tenderness. Laboratory Results - last 24 hr 09/03/18 09/03/18 09/03/18 12:34 12:34 12:34 WBC 3.9 L RBC 4.25 Hgb 12.1 Hct 36.4 MCV 85.6 MCH 28.6 MCHC 33.3 RDW 16.6 H Plt Count 129 L D MPV 8.6 Absolute Neuts (auto) 2.5 Neutrophils % 63.5 Lymphocytes % 22.8 Monocytes % 10.9 H Eosinophils % 2.0 Basophils % 0.8 Nucleated RBC % 0 PT with INR 13.70 H INR 1.16 H Sodium 146 H Potassium 3.6 Chloride 114 H Carbon Dioxide 23 Anion Gap 9 BUN 20 H Creatinine 1.7 H Creat Clearance w eGFR 38.59 Random Glucose 99 Calcium 8.7 Magnesium 2.1 Total Bilirubin 0.8 AST 41 H ALT 31 Alkaline Phosphatase 123 H Creatine Kinase 156 Creatine Kinase Index 2.9 CK-MB (CK-2) 4.6 H Troponin I 1.29 H* B-Natriuretic Peptide 90617.0 H Total Protein 6.7 Albumin 3.4 Urine Color Urine Appearance Urine pH Ur Specific [place] Urine Protein Urine Glucose (UA) Urine Ketones Urine Blood Urine Nitrite Urine Bilirubin Urine Urobilinogen Ur Leukocyte Esterase Urine WBC (Auto) Urine RBC (Auto) 09/03/18 12:36 WBC RBC Hgb Hct MCV MCH MCHC RDW Plt Count MPV Absolute Neuts (auto) Neutrophils % Lymphocytes % Monocytes % Eosinophils % Basophils % Nucleated RBC % PT with INR INR Sodium Potassium Chloride Carbon Dioxide Anion Gap BUN Creatinine Creat Clearance w eGFR Random Glucose Calcium Magnesium Total Bilirubin AST ALT Alkaline Phosphatase Creatine Kinase Creatine Kinase Index CK-MB (CK-2) Troponin I B-Natriuretic Peptide Total Protein Albumin Urine Color Straw Urine Appearance Clear Urine pH 7.0 Ur Specific [place] 1.005 L Urine Protein 2+ H Urine Glucose (UA) Negative Urine Ketones Negative Urine Blood Negative Urine Nitrite Negative Urine Bilirubin Negative Urine Urobilinogen Negative Ur Leukocyte Esterase Negative Urine WBC (Auto) <1 Urine RBC (Auto) 1 Current Medications Generic Name Dose Route Start Last Admin Trade Name Freq PRN Reason Stop Dose Admin Apixaban 2.5 mg 09/03/18 22:00 Eliquis - PO BID TORIN Atorvastatin Calcium 40 mg 09/03/18 22:00 Lipitor - PO HS [facility] Carvedilol 3.125 mg 09/03/18 22:00 Coreg - PO BID [facility]ORIN Furosemide 40 mg 09/04/18 10:00 Lasix Injection - IVPUSH DAILY [facility] Hydralazine HCl 25 mg 09/03/18 22:00 Apresoline - PO BID [facility] Isosorbide Mononitrate 30 mg 09/04/18 10:00 Imdur - PO DAILY [facility] Home Medications Medication Instructions Recorded Atorvastatin Ca [Lipitor] 40 mg PO HS #30 tablet 06/04/17 hydrALAZINE HCL [Apresoline -] 25 mg PO BID #60 tablet 08/12/17 Apixaban [Eliquis -] 2.5 mg PO BID #60 tab 11/30/17 Carvedilol [Coreg -] 3.125 mg PO BID #60 tablet 11/30/17 Furosemide [Lasix -] 20 mg PO DAILY #30 tablet 11/30/17 Isosorbide Mononitrate [Imdur -] 30 mg PO DAILY #30 tab.sr.24h 11/30/17 ASSESSMENT AND PLAN: 83 year old male with Chronic Systolic CHF (EF 44%), CAD s/p CABG 2017 ([place] ), CKD 3, Atrial Fibrillation (on Eliquis), Pulmonary HTN, Glaucoma, presents with increasing shortness of breath, worse on exertion, orthopnea, found to have likely CHF exacerbation and hypertensive urgency. 1. Acute exacerbation of Chronic Systolic CHF Likely sec to recently decreased dose of home Lasix from 40mg to 20mg daily. Responding to IV Lasix diuresis in ED and NTG. Last Echo 12/07 - global hypokinesis with EF 44% BNP 10,626 ECG - Afib with T wave inversion lateral leads. CXR - R pleural effusion. Initially placed on BiPAP due to respiratory distress - now comfortable on 2L via NC - will continue to wean off O2. Continue IV Lasix Daily Weights and I/Os 2. Hypertensive Urgency - secondary to self-stopping home anti-hypertensive medications BP 236/128 on presentation Resume home anti-hypertensive regimen with Hydralazine, Coreg, Imdur. Patient complains of L eye blurriness, apparently chronic as per patient - no recent changes CT Head to exclude any acute intra-cranial process. 3. CKD 3 - Creat at baseline. 4. CAD s/p CABG 2016 - Stable, no chest discomfort. TropI elevated at 1.29 - chronic finding, likely sec to Cardiomyopathy + CKD Hemodynamically Stable. Cardiology consulted. Continue Coreg, Imdur, and Statin 5. HTN - Continue Hydralazine, Coreg, Imdur. DVT Px - on Eliquis.
[2018-09-03] MEDS ORDERED: hydrALAZINE HCL 25 MG TABLET (FP) PO SCH (22:00)
[2018-09-03] MEDS ORDERED: APIXABAN 5 MG TABLET PO ONE (23:39)
[2018-09-03] MEDS ORDERED: CARVEDILOL 3.125 MG TABLET (FP) ONE (23:39)
[2018-09-03] MEDS ORDERED: ATORVASTATIN CA 40 MG TABLET (FP) ONE (23:40)
[2018-09-03] MEDS: APIXABAN 2.5 MG TABLET PO SCH (23:58)
[2018-09-03] MEDS: ATORVASTATIN CA 40 MG TABLET (FP) PO SCH (23:58)
[2018-09-04] MEDS: CARVEDILOL 3.125 MG TABLET (FP) PO SCH ×3 (03:20→23:11)
[2018-09-04 05:48] LABS: BASO % 1.2 % (0-2.0); EOS % 3.6 % (0-4.5); HEMATOCRIT 33.9 % (35.4-49); HEMOGLOBIN 11.3 GM/dL (11.7-16.9); LYMPH % 33.4 % (8-40); MCHC 33.4 g/dl (32.0-35.9); MEAN CELL VOLUME 83.7 fl (80-96); MONO % 9.2 % (3.8-10.2); NEUT % 52.6 % (42.8-82.8); PLATELET COUNT 121 K/MM3 (134-434); RBC 4.04 M/mm3 (4.00-5.60); RDW 16.3 % (11.9-15.9); WHITE BLOOD COUNT 3.4 K/mm3 (4.0-10.0)
[2018-09-04 06:22] LABS: ALBUMIN 2.9 g/dl (3.4-5.0); ALK PHOS 112 U/L (45-117); ANION GAP 7 MMOL/L (8-16); BILIRUBIN,TOTAL 0.7 mg/dL (0.2-1); BLOOD UREA NITROGEN 21 mg/dL (7-18); CALCIUM 8.1 mg/dL (8.5-10.1); CHLORIDE 112 mmol/L (98-107); CO2 24 mmol/L (21-32); CREATININE 1.6 mg/dL (0.55-1.3); GLUCOSE,RANDOM 86 mg/dL (74-106); SGOT/AST 42 U/L (15-37); SGPT/ALT 34 U/L (13-61); SODIUM 143 mmol/L (136-145)
[2018-09-04 06:37] LABS: POTASSIUM 2.9 mmol/L (3.5-5.1)
[2018-09-04] MEDS ORDERED: POTASSIUM CHLORIDE TABS 20 MEQ TABLET.ER (FP) PO ONE ×2 (06:55→16:33)
[2018-09-04] MEDS ORDERED: hydrALAZINE HCL 20 MG/ML VIAL IVPUSH ONE (07:30)
[2018-09-04] MEDS: KCL 10 MEQ IVPB 10 MEQ/100 ML INFUS.BAG IVPB SCH ×3 (07:48→11:18)
--- NOTE | 2018-09-04 09:44 | PN ---
Progress Note, Physician History of Present Illness: 83y M hx of afib on eliquis, htn, CAD (PCI 2006; + stress mibi--> CABG late 2016), hyperlipidemia, depression, presents with sob, pt notes he felt vasquez and orthopnea last night, denies any cp, abd pain, diaphorsis, nausea/vomiting. Pt does endorse increased leg swelling in the L leg for the past 3 days. pt ntoes he did not take his medications last night as he was not sure if his symptoms are due to his medications. - Current Medication List Current Medications: Active Medications Apixaban (Eliquis -) 2.5 mg PO BID [facility] Last Admin: 09/03/18 23:58 Dose: 2.5 mg Atorvastatin Calcium (Lipitor -) 40 mg PO HS [facility] Last Admin: 09/03/18 23:58 Dose: 40 mg Carvedilol (Coreg -) 3.125 mg PO BID [facility] Last Admin: 09/04/18 03:20 Dose: Not Given Furosemide (Lasix Injection -) 40 mg IVPUSH DAILY [facility] Hydralazine HCl (Apresoline -) 25 mg PO TID [facility] Potassium Chloride (Potassium Chloride 10 Meq Premix Ivpb -) 10 meq in 100 mls @ 100 mls/hr IVPB Q60M [facility] Stop: 09/04/18 09:59 Last Admin: 09/04/18 07:48 Dose: 100 mls/hr Isosorbide Mononitrate (Imdur -) 30 mg PO DAILY [facility] Valsartan (Diovan -) 160 mg PO DAILY [facility] - Objective Vital Signs: Vital Signs Temperature 98.0 F 09/04/18 07:13 Pulse Rate 63 09/04/18 08:13 Respiratory Rate 24 H 09/04/18 07:13 Blood Pressure 219/102 H 09/04/18 07:13 O2 Sat by Pulse Oximetry (%) 97 09/04/18 08:13 Eyes: Yes: WNL, Conjunctiva Clear, EOM Intact HENT: Yes: WNL, Atraumatic, Normocephalic Neck: Yes: WNL, Supple, Trachea Midline Cardiovascular: Yes: WNL, Regular Rate and Rhythm Respiratory: Yes: WNL, Regular, CTA Bilaterally Gastrointestinal: Yes: WNL, Normal Bowel Sounds Genitourinary: Yes: WNL Musculoskeletal: Yes: WNL Extremities: Yes: WNL Edema: No Integumentary: Yes: WNL Neurological: Yes: WNL, Alert, Oriented ...Motor Strength: WNL Psychiatric: Yes: WNL Labs: CBC, BMP 09/04/18 05:20 09/04/18 05:20 INR, PTT INR 1.16 (0.83-1.09) H 09/03/18 12:34 Assessment/Plan - Problems (1) Hx of CABG Assessment/Plan: +Stress MIBI-->CABG late 2017 at [facility]. Code(s): Z95.1 - PRESENCE OF AORTOCORONARY BYPASS GRAFT (2) Elevated troponin Assessment/Plan: 1.29 (largely unchanged since 10/2016); f/ serially. Acute/chronic systolic CHF, CKD may contribute to chronic elevation. S/p CABG 2017. Code(s): R74.8 - ABNORMAL LEVELS OF OTHER SERUM ENZYMES (3) Atrial fibrillation Assessment/Plan: On carvedilol for AF, systolic CHF, HTN. On apixaban for anticoagulation (restart; pt had apparently stopped it yesterday ). Code(s): I48.91 - UNSPECIFIED ATRIAL FIBRILLATION (4) Chronic kidney disease (CKD) Code(s): N18.9 - CHRONIC KIDNEY DISEASE, UNSPECIFIED Qualifiers: Chronic kidney disease stage: stage 3 (moderate) Qualified Code(s): N18.3 - Chronic kidney disease, stage 3 (moderate) (5) HTN (hypertension) Assessment/Plan: Restart all antihypertensives (carvedilol, hydralazine + Imdur, valsartan; furosemide). Code(s): I10 - ESSENTIAL (PRIMARY) HYPERTENSION (6) Systolic CHF Assessment/Plan: Moderately reduced LVEF on 2018 ECHO. Medications at home include carvedilol, valsartan, hydralazine + Imdur, furosemide prn. BNP elevation is largely unchanged from previous admissions since 10/2016 ( presently 10,640). F/u Is and Os, daily weight, BUN/Cr, electrolytes. Code(s): I50.20 - UNSPECIFIED SYSTOLIC (CONGESTIVE) HEART FAILURE
[2018-09-04] MEDS ORDERED: FUROSEMIDE 40 MG/4 ML INJECTABLE VIAL IVPUSH SCH (10:00)
[2018-09-04] MEDS: ISOSORBIDE MONONITRATE 30 MG TAB.SR.24H (FP) PO SCH (10:14)
[2018-09-04] MEDS: VALSARTAN 160 MG TABLET (UD) PO SCH (10:14)
[2018-09-04] MEDS: APIXABAN 2.5 MG TABLET PO SCH ×2 (10:14→21:24)
--- NOTE | 2018-09-04 11:23 | ECHO ---
Name: CELIO ODEN Exam:Adult Echocardiogram Study Date: 09/04/2018 08:54 AM Age: 83 yrs Reason For Study: LVEF Height: 64 in Weight: 170 lb BSA: 1.8 m2 MMode/2D Measurements & Calculations IVSd: 0.96 cm Ao root diam: 3.3 cm LVIDd: 5.7 cm LA dimension: 4.3 cm LVIDs: 4.3 cm LVPWd: 0.86 cm EDV(Teich): 157.5 ml LAV (MOD-bp): 153.0 ml ESV(Teich): 82.4 ml TAPSE: 1.8 cm Doppler Measurements & Calculations MV E max marcel: 82.4 cm/sec Ao V2 max: 165.8 cm/sec MV A max marcel: 28.1 cm/sec Ao max P.0 mmHg MV E/A: 2.9 Ao V2 mean: 114.8 cm/sec MV dec time: 0.14 sec Ao mean P.0 mmHg Ao V2 VTI: 33.1 cm AI P1/2t: 836.4 msec AI max marcel: 461.0 cm/sec LV V1 max P.1 mmHg AI max P.0 mmHg LV V1 mean P.5 mmHg AI dec slope: 161.4 cm/sec2 LV V1 max: 88.4 cm/sec LV V1 mean: 55.7 cm/sec LV V1 VTI: 16.3 cm MR max marcel: 474.4 cm/sec TR max marcel: 314.6 cm/sec MR max P.1 mmHg TR max P.8 mmHg PI end-d marcel: 32.6 cm/sec Med Peak E' Marcel: 6.2 cm/sec Med E/e': 13.4 Lat Peak E' Marcel: 6.9 cm/sec Lat E/e': 12.0 Procedure A two-dimensional transthoracic echocardiogram with color flow and Doppler was performed. Left Ventricle The left ventricle is mildly dilated. Left ventricular systolic function is moderately reduced. There is moderate global hypokinesis of the left ventricle. There is apical akinesis. There is apical septal w all akinesis. There is apical anterior wall akinesis. Right Ventricle The right ventricle is mildly dilated. The right ventricular systolic function is mildly reduced. Atria The left atrium is mildly dilated. The right atrium is mildly dilated. Mitral Valve There is mild to moderate mitral valve thickening. There is no mitral valve stenosis. There is modera te mitral regurgitation. Tricuspid Valve There is mild tricuspid valve thickening. There is no tricuspid stenosis. There is severe tricuspid regurgitation. Right ventricular systolic pressure is elevated at 40-50mmHg. Aortic Valve The aortic valve is normal in structure and function. No hemodynamically significant valvular aortic stenosis. Mild aortic regurgitation. Pulmonic Valve The pulmonic valve is not well visualized. There is no pulmonic valvular stenosis. Mild pulmonic valv ular regurgitation. Great Vessels The aortic root is normal size. Pericardium/Pleura There is no pericardial effusion. Interpretation Summary The left ventricle is mildly dilated. The left atrium is mildly dilated. The right atrium is mildly dilated. There is severe tricuspid regurgitation. Right ventricular systolic pressure is elevated at 40-50mmHg. Left ventricular systolic function is moderately reduced. There is moderate global hypokinesis of the left ventricle. There is apical akinesis. There is apical septal wall akinesis. There is apical anterior wall akinesis. There is moderate mitral regurgitation. The right ventricle is mildly dilated. The right ventricular systolic function is mildly reduced. Mild aortic regurgitation. MD Cornel Perla 09/04/2018 11:23 AM
[2018-09-04] MEDS: guaiFENesin 600 MG TABLET.ER (FP) PO SCH ×2 (13:00→21:24)
--- NOTE | 2018-09-04 13:04 | PN ---
Physical Exam: SUBJECTIVE: Patient seen and examined at bedside. No acute events overnight. pt reports feeling better and improved breathing. currently on 2L NC. pt endorses hx of glaucoma and has had vision problems for the past 10 years. Hypertensive this morning and improved w/ IV hydralazine 10mg. c/o nasal congestion. denies fevers, chills, cp, sob, n/v/d, urinary sxs. OBJECTIVE: Vital Signs Period Temp Pulse Resp BP Sys/Ayala Pulse Ox Last 24 Hr 98.0 F-98.4 F 54-70 18-24 161-219/64-105 95-100 GENERAL: AOX3 NAD. comfortable on 2L NC HEAD: NCAT EYES: Pupils round and reactive to light, +L maci gun pupil, EOMI, sclera anicteric, conjunctiva clear. No lid lag. EARS, NOSE, THROAT: Ears normal, nares patent, oropharynx clear without exudates. MMM NECK: Normal range of motion, supple without lymphadenopathy, JVD, or masses. LUNGS: L side CTA, mild crackles at R base, improving HEART: Regular rate and irregular rhythm, normal S1 and S2 without m/R/G ABDOMEN: Soft, NTND normoactive bowel sounds, no guarding, no rebound, no masses. MUSCULOSKELETAL: Normal range of motion at all joints. No bony deformities or tenderness. UPPER EXTREMITIES: 2+ pulses, warm, well-perfused. No cyanosis. No clubbing. No peripheral edema. LOWER EXTREMITIES: 2+ pulses, warm, well-perfused. No calf tenderness. 1+ peripheral edema in LLE but improving, no rash or redness. RLE no edema. NEUROLOGICAL: Cranial nerves II-XII intact. Normal speech. PSYCHIATRIC: Cooperative. Good eye contact. Appropriate mood and affect. SKIN: Warm, dry, normal turgor, no rashes or lesions noted, normal capillary refill. Laboratory Results - last 24 hr 09/03/18 09/03/18 09/03/18 12:34 12:34 12:34 WBC 3.9 L RBC 4.25 Hgb 12.1 Hct 36.4 MCV 85.6 MCH 28.6 MCHC 33.3 RDW 16.6 H Plt Count 129 L D MPV 8.6 Absolute Neuts (auto) 2.5 Neutrophils % 63.5 Lymphocytes % 22.8 Monocytes % 10.9 H Eosinophils % 2.0 Basophils % 0.8 Nucleated RBC % 0 PT with INR 13.70 H INR 1.16 H Sodium 146 H Potassium 3.6 Chloride 114 H Carbon Dioxide 23 Anion Gap 9 BUN 20 H Creatinine 1.7 H Creat Clearance w eGFR 38.59 Random Glucose 99 Calcium 8.7 Phosphorus Magnesium 2.1 Total Bilirubin 0.8 AST 41 H ALT 31 Alkaline Phosphatase 123 H Creatine Kinase 156 Creatine Kinase Index 2.9 CK-MB (CK-2) 4.6 H Troponin I 1.29 H* B-Natriuretic Peptide 61849.0 H Total Protein 6.7 Albumin 3.4 Urine Color Urine Appearance Urine pH Ur Specific [place] Urine Protein Urine Glucose (UA) Urine Ketones Urine Blood Urine Nitrite Urine Bilirubin Urine Urobilinogen Ur Leukocyte Esterase Urine WBC (Auto) Urine RBC (Auto) 09/03/18 09/03/18 09/04/18 12:36 21:57 05:20 WBC 3.4 L RBC 4.04 Hgb 11.3 L Hct 33.9 L MCV 83.7 MCH 28.0 MCHC 33.4 RDW 16.3 H Plt Count 121 L MPV 8.0 Absolute Neuts (auto) 1.8 Neutrophils % 52.6 Lymphocytes % 33.4 D Monocytes % 9.2 Eosinophils % 3.6 Basophils % 1.2 Nucleated RBC % 0 PT with INR INR Sodium Potassium Chloride Carbon Dioxide Anion Gap BUN Creatinine Creat Clearance w eGFR Random Glucose Calcium Phosphorus Magnesium Total Bilirubin AST ALT Alkaline Phosphatase Creatine Kinase Creatine Kinase Index CK-MB (CK-2) Troponin I 1.27 H* B-Natriuretic Peptide Total Protein Albumin Urine Color Straw Urine Appearance Clear Urine pH 7.0 Ur Specific [place] 1.005 L Urine Protein 2+ H Urine Glucose (UA) Negative Urine Ketones Negative Urine Blood Negative Urine Nitrite Negative Urine Bilirubin Negative Urine Urobilinogen Negative Ur Leukocyte Esterase Negative Urine WBC (Auto) <1 Urine RBC (Auto) 1 09/04/18 05:20 WBC RBC Hgb Hct MCV MCH MCHC RDW Plt Count MPV Absolute Neuts (auto) Neutrophils % Lymphocytes % Monocytes % Eosinophils % Basophils % Nucleated RBC % PT with INR INR Sodium 143 Potassium 2.9 L* Chloride 112 H Carbon Dioxide 24 Anion Gap 7 L BUN 21 H Creatinine 1.6 H Creat Clearance w eGFR 41.39 Random Glucose 86 Calcium 8.1 L Phosphorus 3.0 Magnesium 2.0 Total Bilirubin 0.7 AST 42 H ALT 34 Alkaline Phosphatase 112 Creatine Kinase 121 Creatine Kinase Index CK-MB (CK-2) Troponin I 1.25 H* B-Natriuretic Peptide Total Protein 6.0 L Albumin 2.9 L Urine Color Urine Appearance Urine pH Ur Specific [place] Urine Protein Urine Glucose (UA) Urine Ketones Urine Blood Urine Nitrite Urine Bilirubin Urine Urobilinogen Ur Leukocyte Esterase Urine WBC (Auto) Urine RBC (Auto) Active Medications Generic Name Dose Route Start Last Admin Trade Name Freq PRN Reason Stop Dose Admin Apixaban 2.5 mg 09/03/18 22:00 09/04/18 10:14 Eliquis - PO 2.5 mg BID TORIN Administration Atorvastatin Calcium 40 mg 09/03/18 22:00 09/03/18 23:58 Lipitor - PO 40 mg HS TORIN Administration Carvedilol 3.125 mg 09/03/18 22:00 09/04/18 10:14 Coreg - PO 3.125 mg BID TORIN Administration Furosemide 40 mg 09/05/18 10:00 Lasix - PO DAILY TORIN Guaifenesin 600 mg 09/04/18 11:30 Mucinex - PO BID TORIN Hydralazine HCl 25 mg 09/04/18 14:00 Apresoline - PO TID TORIN Isosorbide Mononitrate 30 mg 09/04/18 10:00 09/04/18 10:14 Imdur - PO 30 mg DAILY TORIN Administration Valsartan 160 mg 09/04/18 10:00 09/04/18 10:14 Diovan - PO 160 mg DAILY TORIN Administration CT/HEAD CT WITHOUT CONTRAST : A noncontrast CT scan of the brain was performed. There is moderate volume loss and ventricular dilatation. Moderate chronic microvascular ischemic changes are present. There is a chronic lacunar infarct in the right and left basal ganglia. There is also possible focal encephalomalacia in the left parietal lobe. Otherwise, no mass lesion, gross acute infarct or intracranial hemorrhage are identified. Visualized paranasal sinuses and mastoid air cells are well aerated. Calcification of the cavernous carotid arteries are noted. The calvarium is intact . Impression: Moderate atrophy. Chronic lacunar infarct in the right and left basal ganglia as well as possible focal encephalomalacia in the left parietal lobe. Otherwise, no gross evidence of a focal intracranial lesion or hemorrhage is seen. Correlate clinically to determine further evaluation and follow-up. ASSESSMENT/PLAN: 83 yo M w a hx of systolic CHF, CAD, s/p pci 2007, CKD, HLD, A fib (on low dose eliquis), pulm HTN, CABG 06/2017 (@ [place] with Dr. Camargo), p/w SOB, increased leg swelling in the L leg, and elevated blood pressure for the past few days w/ L eye blurry vision. systolic CHF exacerbation - possibly 2/2 medication noncompliance and unctl HTN. no fevers or white count noted and no evidence of infx on hx. LLE Duplex neg for DVT. CXR w/ R pleural effusion. bedside US neg for pericardial effusion BNP 10,626 but also seems at baseline (has had higher BNPs in 20,000s) s/p IV lasix 40, nitrostat .4mg, coreg, diovan 160, hydralazine 25mg po in ED -Lung exam continuing to improve w/ IV lasix. will switch to 40 PO cecile morning -Hypertensive this morning and improved w/ IV hydralazine 10mg. will increase hydral to 50 TID for better BP ctl. consider increasing imdur to 60 if bp remains unctl -c/w home dose coreg, imdur -cardiology consult -restarting diovan 160, cardio recs appreciated -tele monitoring -strict I/O -daily weights -low sodium diet, restrict fluid to <2L -dc 2L O2 NC -Echo 11/2017: LVSF mod reduced EF of ~44%, mild conc LV hypertrophy, LV mildly dilated, mod global hypokinesis, mild mr, mod tr. -f/u echo Hypertensive Emergency vs urgency - 236/128 w/ L eye blurry vision in ED. BP improved to 185/105 s/p nitrostat .4mg, coreg, diovan 160, hydralazine 25mg po in ED. -Hypertensive this morning 195/107, stat IV hydralazine 10mg given. will increase hydral to 50 TID for better BP ctl. consider increasing imdur to 60 if bp remains unctl -c/w home dose coreg, imdur -restarting diovan 160, cardio recs appreciated. -monitor BP -CT Head neg for acute pathology Dysuria -UA neg -f/u ucx nasal congestion -mucinex CAD s/p stenting, s/p CABG w/ elevated trop 1.29 - unlikely ACS event. per prior labs in 12/07, seems to run in the 1.2 range. chronically elevated 2/2 CKD w/ decreased clearance. EKG A fib, rate 73, no new/acute ST T wave changes/ ischemic changes other than questionable change in initial forces of inferior leads as compared to prior per EKG report -trops are trending down -c/w home dose coreg, imdur, and Lipitor -monitor for any new cp CKD - cr 1.7 at baseline -monitor Cr A.fib - Rate controlled - Continue Eliquis 2.5mg bid -c/w BB FEN PO hydration, No IVF replete prn low sodium/cholesterol/fat diet, restrict fluid to <2L Ppx Eliquis 2.5 bid Dispo: tele Visit type - Emergency Visit Emergency Visit: Yes ED Registration Date: 09/03/18 Care time: The patient presented to the Emergency Department on the above date and was hospitalized for further evaluation of their emergent condition. - New Patient This patient is new to me today: Yes Date on this admission: 09/04/18 - Critical Care Critical Care patient: No
--- NOTE | 2018-09-04 13:26 | PN ---
Teaching Attending Note Name of Resident: Chris Padilla ATTENDING PHYSICIAN STATEMENT I saw and evaluated the patient. I reviewed the resident's note and discussed the case with the resident. I agree with the resident's findings and plan as documented. SUBJECTIVE: Feeling much improved with IV Lasix - less SOB. Mild cough. No chest pain/palps/hemoptysis/fever/chills. OBJECTIVE: Afebrile, Hemodynamically Stable. Last Vital Signs Temp Pulse Resp BP Pulse Ox 98.4 F 67 22 H 182/107 H 95 09/04/18 10:21 09/04/18 13:04 09/04/18 10:21 09/04/18 13:04 09/04/18 11:09 HEENT - Atraumatic, Normocephalic. Heart - S1, S2, soft SM, irregular Lungs - decreased air entry bibabasally - no crackles. Abdomen - Soft, non-tender. Bowel Sounds normal. Extremities - mild edema LLE improved. No calf tenderness. Neuro - AAO x 3. Tone/Power normal all 4 extremities. Laboratory Results - last 24 hr 09/03/18 09/03/18 09/03/18 12:34 12:34 12:36 WBC RBC Hgb Hct MCV MCH MCHC RDW Plt Count MPV Absolute Neuts (auto) Neutrophils % Lymphocytes % Monocytes % Eosinophils % Basophils % Nucleated RBC % PT with INR 13.70 H INR 1.16 H Sodium 146 H Potassium 3.6 Chloride 114 H Carbon Dioxide 23 Anion Gap 9 BUN 20 H Creatinine 1.7 H Creat Clearance w eGFR 38.59 Random Glucose 99 Calcium 8.7 Phosphorus Magnesium 2.1 Total Bilirubin 0.8 AST 41 H ALT 31 Alkaline Phosphatase 123 H Creatine Kinase 156 Creatine Kinase Index 2.9 CK-MB (CK-2) 4.6 H Troponin I 1.29 H* B-Natriuretic Peptide 88154.0 H Total Protein 6.7 Albumin 3.4 Urine Color Straw Urine Appearance Clear Urine pH 7.0 Ur Specific [place] 1.005 L Urine Protein 2+ H Urine Glucose (UA) Negative Urine Ketones Negative Urine Blood Negative Urine Nitrite Negative Urine Bilirubin Negative Urine Urobilinogen Negative Ur Leukocyte Esterase Negative Urine WBC (Auto) <1 Urine RBC (Auto) 1 09/03/18 09/04/18 09/04/18 21:57 05:20 05:20 WBC 3.4 L RBC 4.04 Hgb 11.3 L Hct 33.9 L MCV 83.7 MCH 28.0 MCHC 33.4 RDW 16.3 H Plt Count 121 L MPV 8.0 Absolute Neuts (auto) 1.8 Neutrophils % 52.6 Lymphocytes % 33.4 D Monocytes % 9.2 Eosinophils % 3.6 Basophils % 1.2 Nucleated RBC % 0 PT with INR INR Sodium 143 Potassium 2.9 L* Chloride 112 H Carbon Dioxide 24 Anion Gap 7 L BUN 21 H Creatinine 1.6 H Creat Clearance w eGFR 41.39 Random Glucose 86 Calcium 8.1 L Phosphorus 3.0 Magnesium 2.0 Total Bilirubin 0.7 AST 42 H ALT 34 Alkaline Phosphatase 112 Creatine Kinase 121 Creatine Kinase Index CK-MB (CK-2) Troponin I 1.27 H* 1.25 H* B-Natriuretic Peptide Total Protein 6.0 L Albumin 2.9 L Urine Color Urine Appearance Urine pH Ur Specific [place] Urine Protein Urine Glucose (UA) Urine Ketones Urine Blood Urine Nitrite Urine Bilirubin Urine Urobilinogen Ur Leukocyte Esterase Urine WBC (Auto) Urine RBC (Auto) Current Medications Generic Name Dose Route Start Last Admin Trade Name Freq PRN Reason Stop Dose Admin Apixaban 2.5 mg 09/03/18 22:00 09/04/18 10:14 Eliquis - PO 2.5 mg BID TORIN Administration Atorvastatin Calcium 40 mg 09/03/18 22:00 09/03/18 23:58 Lipitor - PO 40 mg HS TORIN Administration Carvedilol 3.125 mg 09/03/18 22:00 09/04/18 10:14 Coreg - PO 3.125 mg BID TORIN Administration Furosemide 40 mg 09/05/18 10:00 Lasix - PO DAILY TORIN Guaifenesin 600 mg 09/04/18 11:30 09/04/18 13:00 Mucinex - PO 600 mg BID TORIN Administration Hydralazine HCl 25 mg 09/04/18 14:00 09/04/18 13:02 Apresoline - PO 25 mg TID TORIN Administration Isosorbide Mononitrate 30 mg 09/04/18 10:00 09/04/18 10:14 Imdur - PO 30 mg DAILY TORIN Administration Valsartan 160 mg 09/04/18 10:00 09/04/18 10:14 Diovan - PO 160 mg DAILY TORIN Administration ASSESSMENT AND PLAN: 83 year old male with Chronic Systolic CHF (EF 44%), CAD s/p CABG 2017 ([place] ), CKD 3, Atrial Fibrillation (on Eliquis), Pulmonary HTN, Glaucoma, Cerebrovascular Disease, presents with increasing shortness of breath, worse on exertion, orthopnea, found to have likely CHF exacerbation and hypertensive urgency. 1. Acute exacerbation of Chronic Systolic CHF Likely sec to recently decreased dose of home Lasix from 40mg to 20mg daily. Last Echo 12/07 - global hypokinesis with EF 44%. repeat Echo pending. BNP 10,626 ECG - Afib with T wave inversion lateral leads. CXR - R pleural effusion. Initially placed on BiPAP due to respiratory distress - now comfortable on 2L via NC - will wean off O2. Responded to IV Lasix diuresis - will revert to former dose of oral lasix 40mg daily. Daily Weights and I/Os 2. Hypertensive Urgency - secondary to self-stopping home anti-hypertensive medications BP still elevated Resumed on home anti-hypertensive regimen with Hydralazine, Coreg, Imdur, Diovan. Hydralazine dose increased to 50mg tid. Patient complains of L eye blurriness, apparently chronic as per patient due to Glaucoma - no recent changes CT Head - Chronic lacunar infarcts R and L basal ganglia with evidence of encephalomalacia, no acute findings. 3. CKD 3 - Creat at baseline. 4. CAD s/p CABG 2017 - Stable, no chest discomfort. TropI elevated at 1.29max, down to 1.25 - chronic finding, likely sec to Cardiomyopathy + CKD Hemodynamically Stable. Cardiology following - no evidence of ACS currently. Continue Coreg, Imdur, JOSE E-I, and Statin 5. Atrial Fibrillation - Continue rate control with Coreg and AC with Eliquis. 6. Hypokalemia sec to IV Lasix - will repeat levels after IV and oral K replacement. DVT Px - on Eliquis.
[2018-09-04] MEDS ORDERED: hydrALAZINE HCL 25 MG TABLET (FP) PO SCH (14:00)
[2018-09-04] MEDS: hydrALAZINE HCL 50 MG TABLET (FP) PO SCH ×2 (14:22→21:24)
[2018-09-04 16:27] LABS: ANION GAP 7 MMOL/L (8-16); BLOOD UREA NITROGEN 22 mg/dL (7-18); CALCIUM 8.3 mg/dL (8.5-10.1); CHLORIDE 111 mmol/L (98-107); CO2 27 mmol/L (21-32); CREATININE 1.8 mg/dL (0.55-1.3); GLUCOSE,RANDOM 85 mg/dL (74-106); POTASSIUM 3.5 mmol/L (3.5-5.1); SODIUM 145 mmol/L (136-145)
[2018-09-04] MEDS: ATORVASTATIN CA 40 MG TABLET (FP) PO SCH (21:24)
[2018-09-05] MEDS: hydrALAZINE HCL 50 MG TABLET (FP) PO SCH ×3 (05:35→21:11)
[2018-09-05 07:25] LABS: BASO % 0.8 % (0-2.0); HEMATOCRIT 34.8 % (35.4-49); HEMOGLOBIN 11.4 GM/dL (11.7-16.9); LYMPH % 24.6 % (8-40); MCH 27.6 pg (25.7-33.7); MCHC 32.8 g/dl (32.0-35.9); MEAN PLT VOLUME 8.5 fl (7.5-11.1); MONO % 10.6 % (3.8-10.2); PLATELET COUNT 125 K/MM3 (134-434); RBC 4.14 M/mm3 (4.00-5.60); RDW 16.7 % (11.9-15.9); WHITE BLOOD COUNT 3.4 K/mm3 (4.0-10.0)
[2018-09-05 07:59] LABS: ALK PHOS 113 U/L (45-117); ANION GAP 6 MMOL/L (8-16); BILIRUBIN,TOTAL 0.8 mg/dL (0.2-1); BLOOD UREA NITROGEN 23 mg/dL (7-18); CALCIUM 8.4 mg/dL (8.5-10.1); CHLORIDE 112 mmol/L (98-107); CO2 25 mmol/L (21-32); CREATININE 1.5 mg/dL (0.55-1.3); GLUCOSE,RANDOM 93 mg/dL (74-106); MAGNESIUM 2.1 mg/dL (1.8-2.4); POTASSIUM 3.3 mmol/L (3.5-5.1); SGOT/AST 34 U/L (15-37); SGPT/ALT 30 U/L (13-61); SODIUM 142 mmol/L (136-145); TOT PROT 6.3 g/dl (6.4-8.2)
[2018-09-05] MEDS ORDERED: POTASSIUM CHLORIDE TABS 20 MEQ TABLET.ER (FP) PO ONE (08:42)
[2018-09-05] MEDS: ISOSORBIDE MONONITRATE 30 MG TAB.SR.24H (FP) PO SCH (09:16)
[2018-09-05] MEDS: VALSARTAN 160 MG TABLET (UD) PO SCH (09:16)
[2018-09-05] MEDS: guaiFENesin 600 MG TABLET.ER (FP) PO SCH ×2 (09:16→21:11)
[2018-09-05] MEDS: APIXABAN 2.5 MG TABLET PO SCH ×2 (09:16→21:11)
[2018-09-05] MEDS: CARVEDILOL 3.125 MG TABLET (FP) PO SCH ×2 (09:16→21:11)
[2018-09-05] MEDS: FUROSEMIDE 40 MG TABLET (FP) PO SCH (09:17)
--- NOTE | 2018-09-05 11:59 | PN ---
Teaching Attending Note Name of Resident: Chris Padilla ATTENDING PHYSICIAN STATEMENT I saw and evaluated the patient. I reviewed the resident's note and discussed the case with the resident. I agree with the resident's findings and plan as documented. SUBJECTIVE: Feeling better - less SOB. Comfortably lying flat without dyspnea. Mild cough. No chest pain/palps/hemoptysis/fever/chills. OBJECTIVE: Afebrile, Hemodynamically Stable. Last Vital Signs Temp Pulse Resp BP Pulse Ox 97.5 F L 69 20 184/91 H 95 09/05/18 09:36 09/05/18 09:36 09/05/18 09:36 09/05/18 09:36 09/05/18 09:33 HEENT - Atraumatic, Normocephalic. Heart - S1, S2, soft SM, irregular Lungs - decreased air entry bibabasally - no crackles. Abdomen - Soft, non-tender. Bowel Sounds normal. Extremities - Edema resolved. No calf tenderness. Laboratory Results - last 24 hr 09/04/18 09/05/18 09/05/18 15:00 06:30 06:30 WBC 3.4 L RBC 4.14 Hgb 11.4 L Hct 34.8 L MCV 84.0 MCH 27.6 MCHC 32.8 RDW 16.7 H Plt Count 125 L MPV 8.5 Absolute Neuts (auto) 2.0 Neutrophils % 60.0 Lymphocytes % 24.6 D Monocytes % 10.6 H Eosinophils % 4.0 Basophils % 0.8 Nucleated RBC % 0 Sodium 145 142 Potassium 3.5 3.3 L Chloride 111 H 112 H Carbon Dioxide 27 25 Anion Gap 7 L 6 L BUN 22 H 23 H Creatinine 1.8 H 1.5 H Creat Clearance w eGFR 36.13 44.59 Random Glucose 85 93 Calcium 8.3 L 8.4 L Magnesium 2.1 Total Bilirubin 0.8 AST 34 ALT 30 Alkaline Phosphatase 113 Total Protein 6.3 L Albumin 3.0 L Current Medications Generic Name Dose Route Start Last Admin Trade Name Freq PRN Reason Stop Dose Admin Apixaban 2.5 mg 09/03/18 22:00 09/05/18 09:16 Eliquis - PO 2.5 mg BID TORIN Administration Atorvastatin Calcium 40 mg 09/03/18 22:00 09/04/18 21:24 Lipitor - PO 40 mg HS TORIN Administration Carvedilol 3.125 mg 09/04/18 14:24 09/05/18 09:16 Coreg - PO 3.125 mg BID TORIN Administration Furosemide 40 mg 09/05/18 10:00 09/05/18 09:17 Lasix - PO 40 mg DAILY TORIN Administration Guaifenesin 600 mg 09/04/18 11:30 09/05/18 09:16 Mucinex - PO 600 mg BID TORIN Administration Hydralazine HCl 50 mg 09/04/18 14:00 09/05/18 05:35 Apresoline - PO 50 mg TID TORIN Administration Isosorbide Mononitrate 30 mg 09/04/18 10:00 09/05/18 09:16 Imdur - PO 30 mg DAILY TORIN Administration Valsartan 160 mg 09/04/18 10:00 09/05/18 09:16 Diovan - PO 160 mg DAILY TORIN Administration ASSESSMENT AND PLAN: 83 year old male with Chronic Systolic CHF (EF 44%), CAD s/p CABG 2017 ([place] ), CKD 3, Atrial Fibrillation (on Eliquis), Pulmonary HTN, Glaucoma, Cerebrovascular Disease, presents with increasing shortness of breath, worse on exertion, orthopnea, found to have likely CHF exacerbation and hypertensive urgency. 1. Acute exacerbation of Chronic Systolic CHF Likely sec to recently decreased dose of home Lasix from 40mg to 20mg daily. Last Echo 12/07 - global hypokinesis with EF 44%. repeat Echo - severe TR, moderate global LV hypokinesis with mildly reduced EF, Apical Akinesis, Apical septal and anterior wall akinesis. BNP 10,626 on presentation ECG - Afib with T wave inversion lateral leads. CXR - R pleural effusion. Initially placed on BiPAP due to respiratory distress - now comfortable on room air. Responded to IV Lasix diuresis - reverted to former dose of oral lasix 40mg daily. Daily Weights and I/Os Awaiting Cardiology recommendations regarding Echo findings, troponin egression , and relative bradycardia. 2. Hypertensive Urgency - secondary to self-stopping home anti-hypertensive medications Resumed on home anti-hypertensive regimen with Hydralazine, Coreg, Imdur, Diovan. Hydralazine dose increased to 50mg tid. CT Head - Chronic lacunar infarcts R and L basal ganglia with evidence of encephalomalacia, no acute findings. 3. CKD 3 - Creat at baseline. 4. CAD s/p CABG 2017 - Stable, no chest discomfort. Trop I elevated at 1.29 max , down to 1.25 - chronic finding, likely sec to Cardiomyopathy + CKD Hemodynamically Stable. Cardiology following - no evidence of ACS currently - awaiting further recommendations. Continue Coreg (heart rate limited), Imdur, JOSE E-I, and Statin 5. Atrial Fibrillation with episodic slow ventricular response - Continue Coreg within HR parameters, and AC with Eliquis. 6. Hypokalemia sec to IV Lasix - repleted. DVT Px - on Eliquis.
--- NOTE | 2018-09-05 12:57 | PN ---
Physical Exam: SUBJECTIVE: Patient seen and examined at bedside. overnight pt mercedes to 50s, coreg night dose held. pt reports feeling better and improved breathing on RA. Hypertensive this morning. no complaints. denies fevers, chills, cp, sob, n/v/d , urinary sxs. OBJECTIVE: Vital Signs Period Temp Pulse Resp BP Sys/Ayala Pulse Ox Last 24 Hr 97.3 F-98.5 F 52-84 18-20 108-195/62-107 95-97 GENERAL: AOX3 NAD. comfortable lying flat in bed on RA HEAD: NCAT EYES: Pupils round and reactive to light, +L maci gun pupil, EOMI, sclera anicteric, conjunctiva clear. No lid lag. EARS, NOSE, THROAT: Ears normal, nares patent, oropharynx clear without exudates. MMM NECK: Normal range of motion, supple without lymphadenopathy, JVD, or masses. LUNGS: L side CTA, mild crackles at R base, improving HEART: RR and irregular rhythm, normal S1 and S2 without m/R/G ABDOMEN: Soft, NTND normoactive bowel sounds, no guarding, no rebound, no masses. MUSCULOSKELETAL: Normal range of motion at all joints. No bony deformities or tenderness. UPPER EXTREMITIES: 2+ pulses, warm, well-perfused. No cyanosis. No clubbing. No peripheral edema. LOWER EXTREMITIES: 2+ pulses, warm, well-perfused. No calf tenderness. 1+ peripheral edema in LE but improving, no rash or redness. NEUROLOGICAL: Cranial nerves II-XII intact. Normal speech. PSYCHIATRIC: Cooperative. Good eye contact. Appropriate mood and affect. SKIN: Warm, dry, normal turgor, no rashes or lesions noted, normal capillary refill. Laboratory Results - last 24 hr 09/04/18 09/05/18 09/05/18 15:00 06:30 06:30 WBC 3.4 L RBC 4.14 Hgb 11.4 L Hct 34.8 L MCV 84.0 MCH 27.6 MCHC 32.8 RDW 16.7 H Plt Count 125 L MPV 8.5 Absolute Neuts (auto) 2.0 Neutrophils % 60.0 Lymphocytes % 24.6 D Monocytes % 10.6 H Eosinophils % 4.0 Basophils % 0.8 Nucleated RBC % 0 Sodium 145 142 Potassium 3.5 3.3 L Chloride 111 H 112 H Carbon Dioxide 27 25 Anion Gap 7 L 6 L BUN 22 H 23 H Creatinine 1.8 H 1.5 H Creat Clearance w eGFR 36.13 44.59 Random Glucose 85 93 Calcium 8.3 L 8.4 L Magnesium 2.1 Total Bilirubin 0.8 AST 34 ALT 30 Alkaline Phosphatase 113 Total Protein 6.3 L Albumin 3.0 L Active Medications Generic Name Dose Route Start Last Admin Trade Name Freq PRN Reason Stop Dose Admin Apixaban 2.5 mg 09/03/18 22:00 09/05/18 09:16 Eliquis - PO 2.5 mg BID TORIN Administration Atorvastatin Calcium 40 mg 09/03/18 22:00 09/04/18 21:24 Lipitor - PO 40 mg HS TORIN Administration Carvedilol 3.125 mg 09/04/18 14:24 09/05/18 09:16 Coreg - PO 3.125 mg BID TORIN Administration Furosemide 40 mg 09/05/18 10:00 09/05/18 09:17 Lasix - PO 40 mg DAILY TORIN Administration Guaifenesin 600 mg 09/04/18 11:30 09/05/18 09:16 Mucinex - PO 600 mg BID TORIN Administration Hydralazine HCl 50 mg 09/04/18 14:00 09/05/18 05:35 Apresoline - PO 50 mg TID TORIN Administration Isosorbide Mononitrate 30 mg 09/04/18 10:00 09/05/18 09:16 Imdur - PO 30 mg DAILY TORIN Administration Valsartan 160 mg 09/04/18 10:00 09/05/18 09:16 Diovan - PO 160 mg DAILY TORIN Administration ASSESSMENT/PLAN: CT/HEAD CT WITHOUT CONTRAST : A noncontrast CT scan of the brain was performed. There is moderate volume loss and ventricular dilatation. Moderate chronic microvascular ischemic changes are present. There is a chronic lacunar infarct in the right and left basal ganglia. There is also possible focal encephalomalacia in the left parietal lobe. Otherwise, no mass lesion, gross acute infarct or intracranial hemorrhage are identified. Visualized paranasal sinuses and mastoid air cells are well aerated. Calcification of the cavernous carotid arteries are noted. The calvarium is intact . Impression: Moderate atrophy. Chronic lacunar infarct in the right and left basal ganglia as well as possible focal encephalomalacia in the left parietal lobe. Otherwise, no gross evidence of a focal intracranial lesion or hemorrhage is seen. Correlate clinically to determine further evaluation and follow-up. ASSESSMENT/PLAN: 83 yo M w a hx of systolic CHF, CAD, s/p pci 2007, CKD, HLD, A fib (on low dose eliquis), pulm HTN, CABG 06/2017 (@ [place] with Dr. Camargo), glaucoma? ( per pt), p/w SOB, increased leg swelling in the L leg, and elevated blood pressure for the past few days w/ L eye blurry vision. systolic CHF exacerbation - possibly 2/2 medication noncompliance and unctl HTN. no fevers or white count noted and no evidence of infx on hx. LLE Duplex neg for DVT. CXR w/ R pleural effusion. bedside US neg for pericardial effusion BNP 10,626 but also seems at baseline (has had higher BNPs in 20,000s) s/p IV lasix 40, nitrostat .4mg, coreg, diovan 160, hydralazine 25mg po in ED Initially placed on BiPAP due to respiratory distress - now comfortable on room air. -Lung exam continues to improve. s/p IV lasix. started 40mg PO today -Hypertensive this morning but overall improving w/ the increase of hydral to 50 TID. consider increasing imdur to 60 if bp remains unctl -c/w home dose coreg, imdur -cardiology consult -c/w diovan 160, cardio recs appreciated -strict I/O -daily weights -low sodium diet, restrict fluid to <2L -Echo 11/2017: LVSF mod reduced EF of ~44%, mild conc LV hypertrophy, LV mildly dilated, mod global hypokinesis, mild mr, mod tr. -Echo 09/04/18: severe TR, moderate global LV hypokinesis with mildly reduced EF , Apical Akinesis, Apical septal and anterior wall akinesis. -Awaiting Cardiology recommendations regarding Echo findings, troponin egression , and relative bradycardia. Hypertensive Emergency vs urgency - 236/128 w/ L eye blurry vision in ED ( blurry vision may be 2/2 glaucoma). BP improved to 185/105 s/p nitrostat .4mg, coreg, diovan 160, hydralazine 25mg po in ED. --Hypertensive this morning but overall improving w/ the increase of hydral to 50 TID. consider increasing imdur to 60 if bp remains unctl -c/w home dose coreg, imdur -c/w diovan 160, cardio recs appreciated -monitor BP -CT Head neg for acute pathology. shows Chronic lacunar infarcts R and L basal ganglia with evidence of encephalomalacia Dysuria - resolved -UA/Ucx neg nasal congestion -mucinex Glaucoma- pt endorses hx of glaucoma and has had vision problems for the past 10 years. may be the reason for pt blurry vision CAD s/p stenting, s/p CABG w/ elevated trop 1.29 - Stable, no chest discomfort, unlikely ACS event. per prior labs in 12/07, seems to run in the 1.2 range. chronically elevated 2/2 Cardiomyopathy and CKD. EKG A fib, rate 73, no new/ acute ST T wave changes/ischemic changes other than questionable change in initial forces of inferior leads as compared to prior per EKG report -trops downtrended to 1.25 -c/w home dose coreg, imdur, and Lipitor -monitor for any new cp CKD III - cr 1.7 at baseline -monitor Cr A.fib with episodic slow ventricular response - Rate controlled - C/w Eliquis 2.5mg bid -c/w BB FEN PO hydration, No IVF replete prn low sodium/cholesterol/fat diet, restrict fluid to <2L Ppx Eliquis 2.5 bid Dispo: tele Visit type - Emergency Visit Emergency Visit: Yes ED Registration Date: 09/03/18 Care time: The patient presented to the Emergency Department on the above date and was hospitalized for further evaluation of their emergent condition. - New Patient This patient is new to me today: Yes Date on this admission: 09/05/18 - Critical Care Critical Care patient: No
--- NOTE | 2018-09-05 16:39 | PN ---
Progress Note, Physician Chief Complaint: Pt alert; easily short of breath. History of Present Illness: 83y M hx of afib on eliquis, htn, CAD (PCI 2006; + stress mibi--> CABG late 2016), systolic CHF, hyperlipidemia, depression, presents with sob, pt notes he felt vasquez and orthopnea last night, denies any cp, abd pain, diaphorsis, nausea/vomiting. Pt does endorse increased leg swelling in the L leg for the past 3 days. pt ntoes he did not take his medications last night as he was not sure if his symptoms are due to his medications. - Current Medication List Current Medications: Active Medications Apixaban (Eliquis -) 2.5 mg PO BID [facility] Last Admin: 09/05/18 09:16 Dose: 2.5 mg Atorvastatin Calcium (Lipitor -) 40 mg PO HS [facility] Last Admin: 09/04/18 21:24 Dose: 40 mg Carvedilol (Coreg -) 3.125 mg PO BID [facility] Last Admin: 09/05/18 09:16 Dose: 3.125 mg Furosemide (Lasix -) 40 mg PO DAILY [facility] Last Admin: 09/05/18 09:17 Dose: 40 mg Guaifenesin (Mucinex -) 600 mg PO BID [facility] Last Admin: 09/05/18 09:16 Dose: 600 mg Hydralazine HCl (Apresoline -) 50 mg PO TID [facility] Last Admin: 09/05/18 16:11 Dose: 50 mg Isosorbide Mononitrate (Imdur -) 30 mg PO DAILY [facility] Last Admin: 09/05/18 09:16 Dose: 30 mg Spironolactone (Aldactone -) 25 mg PO DAILY [facility] Valsartan (Diovan -) 160 mg PO DAILY [facility] Last Admin: 09/05/18 09:16 Dose: 160 mg - Objective Vital Signs: Vital Signs Temperature 98.5 F 09/05/18 12:29 Pulse Rate 57 L 09/05/18 16:13 Respiratory Rate 22 H 09/05/18 16:13 Blood Pressure 142/70 09/05/18 16:13 O2 Sat by Pulse Oximetry (%) 95 09/05/18 09:33 Constitutional: Yes: Calm Eyes: Yes: WNL HENT: Yes: WNL Neck: Yes: WNL Cardiovascular: Yes: S1 (varies in intensity), S2 Respiratory: Yes: Regular Gastrointestinal: Yes: Soft ...Rectal Exam: Yes: Deferred Genitourinary: No: Anuria Musculoskeletal: Yes: Muscle Weakness Extremities: Yes: Cool Edema: No Peripheral Pulses WNL: Yes Integumentary: Yes: WNL Neurological: Yes: Alert, Oriented Psychiatric: Yes: Alert, Oriented Labs: CBC, BMP 09/05/18 06:30 09/05/18 06:30 INR, PTT INR 1.16 (0.83-1.09) H 09/03/18 12:34 Abnormal Lab Results 09/05/18 09/06/18 09/06/18 06:30 06:00 06:00 WBC 3.7 L Hgb 11.6 L Hct 35.0 L RDW 17.3 H Plt Count 125 L Monocytes % 12.1 H Potassium 3.3 L Chloride 112 H 112 H Anion Gap 6 L 5 L BUN 23 H 29 H Creatinine 1.5 H 1.7 H Calcium 8.4 L 8.1 L Total Protein 6.3 L Albumin 3.0 L - ....Imaging Other: Image Reviewed (telemetry: AF; periods of slow VR) Problem List - Problems (1) Hx of CABG Assessment/Plan: +Stress MIBI-->CABG late 2016 at [facility]. Code(s): Z95.1 - PRESENCE OF AORTOCORONARY BYPASS GRAFT (2) Elevated troponin Assessment/Plan: 1.29 (largely unchanged since 10/2016); f/ serially. Acute/chronic systolic CHF, CKD may contribute to chronic elevation. S/p CABG 2016. Code(s): R74.8 - ABNORMAL LEVELS OF OTHER SERUM ENZYMES (3) Atrial fibrillation Assessment/Plan: On carvedilol for AF, systolic CHF, HTN. Periods of slow verntricular response. Will follow HR carefully: pt requires beta blockers for systolic CHF and CAD. If pauses lengthen, will require consderation of PPM. On apixaban for anticoagulation (restart; pt had apparently stopped it yesterday ). Replete electrolytes. Assure that TFTs are WNL. Code(s): I48.91 - UNSPECIFIED ATRIAL FIBRILLATION (4) Chronic kidney disease (CKD) Code(s): N18.9 - CHRONIC KIDNEY DISEASE, UNSPECIFIED Qualifiers: Chronic kidney disease stage: stage 3 (moderate) Qualified Code(s): N18.3 - Chronic kidney disease, stage 3 (moderate) (5) HTN (hypertension) Assessment/Plan: Restart all antihypertensives (carvedilol, hydralazine + Imdur, valsartan; furosemide) Add spironolactone 25 mg daily for HTN, reduced LVEF. F/u BUN/Cr and electrolytes carefully.. Code(s): I10 - ESSENTIAL (PRIMARY) HYPERTENSION (6) Systolic CHF Assessment/Plan: Moderately reduced LVEF on 2017 ECHO and again on 08/2018 ECHO. Medications at home include carvedilol, valsartan, hydralazine + Imdur, furosemide prn. Start spironolactone. BNP elevation is largely unchanged from previous admissions since 10/2016 ( presently 10,640). F/u Is and Os, daily weight, BUN/Cr, electrolytes. Code(s): I50.20 - UNSPECIFIED SYSTOLIC (CONGESTIVE) HEART FAILURE (7) Moderate to severe pulmonary hypertension Assessment/Plan: Significant LV dysfunction a major contributor to pt's elevated RVSP, reduced RVER. Code(s): I27.20 - PULMONARY HYPERTENSION, UNSPECIFIED
[2018-09-05] MEDS: SPIRONOLACTONE 25 MG TABLET (FP) PO SCH (16:50)
[2018-09-05] MEDS ORDERED: SODIUM CHLORIDE NASAL SPRAY 44 ML BOTTLE NS PRN (20:51)
[2018-09-05] MEDS: ATORVASTATIN CA 40 MG TABLET (FP) PO SCH (21:11)
[2018-09-05] MEDS ORDERED: PT OWN MED DRAWER 7, Y5N ONE (21:33)
[2018-09-06] MEDS: hydrALAZINE HCL 50 MG TABLET (FP) PO SCH ×2 (06:03→13:39)
[2018-09-06 06:48] LABS: ANION GAP 5 MMOL/L (8-16); BLOOD UREA NITROGEN 29 mg/dL (7-18); CALCIUM 8.1 mg/dL (8.5-10.1); CHLORIDE 112 mmol/L (98-107); CO2 26 mmol/L (21-32); CREATININE 1.7 mg/dL (0.55-1.3); GLUCOSE,RANDOM 88 mg/dL (74-106); MAGNESIUM 2.2 mg/dL (1.8-2.4); POTASSIUM 3.6 mmol/L (3.5-5.1); SODIUM 142 mmol/L (136-145)
[2018-09-06 07:56] LABS: BASO % 0.8 % (0-2.0); EOS % 4.2 % (0-4.5); HEMOGLOBIN 11.6 GM/dL (11.7-16.9); LYMPH % 28.5 % (8-40); MCH 28.2 pg (25.7-33.7); MCHC 33.3 g/dl (32.0-35.9); MEAN CELL VOLUME 84.7 fl (80-96); MEAN PLT VOLUME 9.1 fl (7.5-11.1); MONO % 12.1 % (3.8-10.2); NEUT % 54.4 % (42.8-82.8); PLATELET COUNT 125 K/MM3 (134-434); RBC 4.13 M/mm3 (4.00-5.60); RDW 17.3 % (11.9-15.9); WHITE BLOOD COUNT 3.7 K/mm3 (4.0-10.0)
[2018-09-06] MEDS: VALSARTAN 160 MG TABLET (UD) PO SCH (09:32)
[2018-09-06] MEDS: FUROSEMIDE 40 MG TABLET (FP) PO SCH (09:32)
[2018-09-06] MEDS: SPIRONOLACTONE 25 MG TABLET (FP) PO SCH (09:32)
[2018-09-06] MEDS: guaiFENesin 600 MG TABLET.ER (FP) PO SCH (09:32)
[2018-09-06] MEDS: CARVEDILOL 3.125 MG TABLET (FP) PO SCH (09:33)
[2018-09-06] MEDS: ISOSORBIDE MONONITRATE 30 MG TAB.SR.24H (FP) PO SCH (09:33)
[2018-09-06] MEDS: APIXABAN 2.5 MG TABLET PO SCH (09:33)
--- NOTE | 2018-09-06 13:08 | PN ---
Teaching Attending Note Name of Resident: Chris Padilla ATTENDING PHYSICIAN STATEMENT I saw and evaluated the patient. I reviewed the resident's note and discussed the case with the resident. I agree with the resident's findings and plan as documented. SUBJECTIVE: Feeling better. Dyspnea/cough improved. No chest pain/palpitations/ hemoptysis/fever/chills. OBJECTIVE: Afebrile, Hemodynamically Stable. Last Vital Signs Temp Pulse Resp BP Pulse Ox 98.3 F 67 18 150/78 97 09/06/18 13:13 09/06/18 13:13 09/06/18 13:13 09/06/18 13:13 09/05/18 20:08 HEENT - Atraumatic, Normocephalic. Heart - S1, S2, soft SM, irregular Lungs - decreased air entry bibabasally - no crackles. Abdomen - Soft, non-tender. Bowel Sounds normal. Extremities - Edema resolved. No calf tenderness. Neuro - AAO x 3. Tone/Power normal all 4 extremities. Laboratory Results - last 24 hr 09/05/18 09/06/18 09/06/18 06:30 06:00 06:00 WBC 3.7 L RBC 4.13 Hgb 11.6 L Hct 35.0 L MCV 84.7 MCH 28.2 MCHC 33.3 RDW 17.3 H Plt Count 125 L MPV 9.1 Absolute Neuts (auto) 2.0 Neutrophils % 54.4 Lymphocytes % 28.5 Monocytes % 12.1 H Eosinophils % 4.2 Basophils % 0.8 Nucleated RBC % 0 Sodium 142 142 Potassium 3.3 L 3.6 Chloride 112 H 112 H Carbon Dioxide 25 26 Anion Gap 6 L 5 L BUN 23 H 29 H Creatinine 1.5 H 1.7 H Creat Clearance w eGFR 44.59 38.59 Random Glucose 93 88 Calcium 8.4 L 8.1 L Magnesium 2.1 2.2 Total Bilirubin 0.8 AST 34 ALT 30 Alkaline Phosphatase 113 Total Protein 6.3 L Albumin 3.0 L TSH 1.01 D Current Medications Generic Name Dose Route Start Last Admin Trade Name Freq PRN Reason Stop Dose Admin Apixaban 2.5 mg 09/03/18 22:00 09/06/18 09:33 Eliquis - PO 2.5 mg BID TORIN Administration Atorvastatin Calcium 40 mg 09/03/18 22:00 09/05/18 21:11 Lipitor - PO 40 mg HS TORIN Administration Carvedilol 3.125 mg 09/05/18 22:00 09/06/18 09:33 Coreg - PO 3.125 mg BID TORIN Administration Furosemide 40 mg 09/05/18 10:00 09/06/18 09:32 Lasix - PO 40 mg DAILY TORIN Administration Guaifenesin 600 mg 09/04/18 11:30 09/06/18 09:32 Mucinex - PO 600 mg BID TORIN Administration Hydralazine HCl 50 mg 09/04/18 14:00 09/06/18 06:03 Apresoline - PO 50 mg TID TORIN Administration Isosorbide Mononitrate 30 mg 09/04/18 10:00 09/06/18 09:33 Imdur - PO 30 mg DAILY TORIN Administration Sodium Chloride 2 spray 09/05/18 20:51 Anthony [place] Nasal [place] - NS Q12H PRN NASAL CONGESTION Spironolactone 25 mg 09/05/18 16:30 09/06/18 09:32 Aldactone - PO 25 mg DAILY TORIN Administration Valsartan 160 mg 09/04/18 10:00 09/06/18 09:32 Diovan - PO 160 mg DAILY TORIN Administration ASSESSMENT AND PLAN: 83 year old male with Chronic Systolic CHF (EF 44%), CAD s/p CABG 2017 ([place] ), CKD 3, Atrial Fibrillation (on Eliquis), Pulmonary HTN, Glaucoma, Cerebrovascular Disease, presents with increasing shortness of breath, worse on exertion, orthopnea, found to have likely CHF exacerbation and hypertensive urgency. 1. Acute exacerbation of Chronic Systolic CHF Likely sec to recently decreased dose of home Lasix from 40mg to 20mg daily. Last Echo 12/07 - global hypokinesis with EF 44%. Repeat Echo - severe TR, moderate global LV hypokinesis with mildly reduced EF, Apical Akinesis, Apical septal and anterior wall akinesis. BNP 10,626 on presentation ECG - Afib with T wave inversion lateral leads. CXR - R pleural effusion. Initially placed on BiPAP due to respiratory distress - now improved and comfortable on room air. Responded to IV Lasix diuresis - reverted to former dose of oral lasix 40mg daily, which will be recommended on discharge. Evaluated by Cardiology - Spirinolactone added, for out-patient follow up. 2. Hypertensive Urgency - secondary to self-stopping home anti-hypertensive medications Resumed on home anti-hypertensive regimen with Hydralazine, Coreg, Imdur, Diovan. Hydralazine dose increased to 50mg tid. Spironolactone added. CT Head - Chronic lacunar infarcts R and L basal ganglia with evidence of encephalomalacia, no acute findings. 3. CKD 3 - Creat at baseline. 4. CAD s/p CABG 2016 - Stable, no chest discomfort. Trop I elevated at 1.29 max , down to 1.25 - chronic finding, likely sec to Cardiomyopathy + CKD Hemodynamically Stable. Cardiology following - no evidence of ACS currently - further recommendations on out-patient follow up. Continue Coreg, Imdur, JOSE E-I, and Statin 5. Atrial Fibrillation with episodic slow ventricular response - Continue Coreg and AC with Eliquis with Cardiology follow up as out-patient for possible PPM. 6. Hypokalemia sec to IV Lasix - repleted. Medically stable for discharge with Cardiology follow up.
[2018-09-06 13:14] VITALS: BP 150/78; PULSE 67; TEMP 98.3
--- NOTE | 2018-09-06 13:37 | DS ---
Physical Exam: SUBJECTIVE: Patient seen and examined at bedside. pt reports feeling better and improved breathing on RA. Hypertensive this morning bt improved this afternoon. no complaints. denies fevers, chills, cp, sob, n/v/d, urinary sxs. OBJECTIVE: Vital Signs Period Temp Pulse Resp BP Sys/Ayala Pulse Ox Last 24 Hr 97.3 F-98.3 F 57-72 18-22 142-187/70-109 97 PHYSICAL EXAM GENERAL: AOX3 NAD. comfortable lying flat in bed on RA HEAD: NCAT EYES: Pupils round and reactive to light, +L maci gun pupil, EOMI, sclera anicteric, conjunctiva clear. No lid lag. EARS, NOSE, THROAT: Ears normal, nares patent, oropharynx clear without exudates. MMM NECK: Normal range of motion, supple without lymphadenopathy, JVD, or masses. LUNGS: ctab HEART: RR and irregular rhythm, normal S1 and S2 without m/R/G ABDOMEN: Soft, NTND normoactive bowel sounds, no guarding, no rebound, no masses. MUSCULOSKELETAL: Normal range of motion at all joints. No bony deformities or tenderness. UPPER EXTREMITIES: 2+ pulses, warm, well-perfused. No cyanosis. No clubbing. No peripheral edema. LOWER EXTREMITIES: 2+ pulses, warm, well-perfused. No calf tenderness. 1+ peripheral edema in LE but improving, no rash or redness. NEUROLOGICAL: Cranial nerves II-XII intact. Normal speech. PSYCHIATRIC: Cooperative. Good eye contact. Appropriate mood and affect. SKIN: Warm, dry, normal turgor, no rashes or lesions noted, normal capillary refill. LABS Laboratory Results - last 24 hr 09/05/18 09/06/18 09/06/18 06:30 06:00 06:00 WBC 3.7 L RBC 4.13 Hgb 11.6 L Hct 35.0 L MCV 84.7 MCH 28.2 MCHC 33.3 RDW 17.3 H Plt Count 125 L MPV 9.1 Absolute Neuts (auto) 2.0 Neutrophils % 54.4 Lymphocytes % 28.5 Monocytes % 12.1 H Eosinophils % 4.2 Basophils % 0.8 Nucleated RBC % 0 Sodium 142 142 Potassium 3.3 L 3.6 Chloride 112 H 112 H Carbon Dioxide 25 26 Anion Gap 6 L 5 L BUN 23 H 29 H Creatinine 1.5 H 1.7 H Creat Clearance w eGFR 44.59 38.59 Random Glucose 93 88 Calcium 8.4 L 8.1 L Magnesium 2.1 2.2 Total Bilirubin 0.8 AST 34 ALT 30 Alkaline Phosphatase 113 Total Protein 6.3 L Albumin 3.0 L TSH 1.[address]/HEAD CT WITHOUT CONTRAST : A noncontrast CT scan of the brain was performed. There is moderate volume loss and ventricular dilatation. Moderate chronic microvascular ischemic changes are present. There is a chronic lacunar infarct in the right and left basal ganglia. There is also possible focal encephalomalacia in the left parietal lobe. Otherwise, no mass lesion, gross acute infarct or intracranial hemorrhage are identified. Visualized paranasal sinuses and mastoid air cells are well aerated. Calcification of the cavernous carotid arteries are noted. The calvarium is intact . Impression: Moderate atrophy. Chronic lacunar infarct in the right and left basal ganglia as well as possible focal encephalomalacia in the left parietal lobe. Otherwise, no gross evidence of a focal intracranial lesion or hemorrhage is seen. Correlate clinically to determine further evaluation and follow-up. Echo 11/2017: LVSF mod reduced EF of ~44%, mild conc LV hypertrophy, LV mildly dilated, mod global hypokinesis, mild mr, mod tr. Echo 09/04/18: severe TR, moderate global LV hypokinesis with mildly reduced EF, Apical Akinesis, Apical septal and anterior wall akinesis. HOSPITAL COURSE: Date of Admission:09/03/18 Date of Discharge: 09/06/18 83 yo M w a hx of systolic CHF, CAD, s/p pci 2007, CKD, HLD, A fib (on low dose eliquis), pulm HTN, CABG 06/2017 (@ [place] with Dr. Camargo), glaucoma? ( per pt), p/w SOB, increased leg swelling in the L leg, and elevated blood pressure (236/128) for the past few days w/ L eye blurry vision. Admitted to [facility] for systolic CHF exacerbation likely 2/2 HTN urgency possibly 2 /2 medication noncompliance. CXR w/ R pleural effusion. CT Head neg for acute pathology, r/o HTN emergency. pt initially was placed on bipap but quickly was weaned off to room air. noted to have BNP 10,626 but also seems at baseline ( has had higher BNPs in 20,000s), as well as elevated troponin 1.29. per prior labs in 12/07, seems to run in the 1.2 range and likely chronically elevated 2/2 Cardiomyopathy and CKD. Trops remained stable and EKG did not show any significant changes concerning for ischemia/ACS. Echo 09/04/18: severe TR, moderate global LV hypokinesis with mildly reduced EF, Apical Akinesis, Apical septal and anterior wall akinesis. prior echo from 11/2017 did not show apical akinesis and severe TR. pt was tx w/ IV lasix 40mg and responded well. Was then switched to PO 40mg and now will be dcd w/ 40 as this was his original dose prior to his last admission in 11/2017. BP was ctl w/ coreg, imdur, diovan, hydralazine, and aldactone. home dose Hydralazine was increased from 25 tid to 50 tid. and aldactone and diovan were restarted as well (unclear why pt was no longer taking/prescribed these meds at home) to achieve ctl. of note, pt was noted to become mercedes to 30s at night and coreg was often held. we will decrease coreg to daily dosing and pt will f/u w/ outpt cardio to be adjusted and monitored Glaucoma- pt endorses hx of glaucoma and has had vision problems for the past 10 years. likely the reason for pt blurry vision. pt tot f/u outpt pt stable and ready for dc. dc plan informed to pt and daughter. pt in agreeance Minutes to complete discharge: 38 Discharge Summary Reason For Visit: HYPERTENSIVE EMERGENCY/ACUTE ON CHRONIC CONGESTIVE Current Active Problems Acute exacerbation of CHF (congestive heart failure) (Acute) Acute on chronic diastolic CHF (congestive heart failure) (Acute) Coronary artery disease (Acute) Elevated troponin (Acute) HTN (hypertension) (Acute) Hx of CABG (Acute) Hypertensive cardiomyopathy (Acute) Hypertensive emergency (Acute) Moderate to severe pulmonary hypertension (Acute) Systolic CHF (Acute) Condition: Stable - Instructions Diet, Activity, Other Instructions: you came in with shortness of breath and high blood pressure and were found to have an exacerbation of your congestive heart failure. We gave you IV lasix and medications to remove your excess fluid and lower your blood pressure. you had an echo of your heart which showed some change since your last echo in , Please follow up with your supervisor machine setter Dr. Nagel about your echo results Please continue your home meds. There are some changes to your home meds; We have increased the dose of your home lasix to 40mg once a day but mouth. We have increased the dose of your home Hydralazine to 50mg three times a day We have restarted your diovan for your blood pressure and CHF. PLease take diovan 160mg once a day We have restarted your Spironolactone [Aldactone -] 25 mg DAILY We have decreased the dose of your home Coreg 3.125mg to only once a day Please monitor your blood pressure at home Please eat a low salt diet and limit your liquid intake Please follow up with your primary care physician within 1 week Please follow up with your supervisor machine setter Dr. Nagel within 1 week If you experience ay worsening and more difficulty in breathing, chest pain, increased leg swelling, blurry vision, headaches, nausea, vomit, please call 911 or come back to the ER. If you experience lightheadedness that lasts for a long time (over 30 minutes) please return to the ER in case your heart rate was affected by the medications. Referrals: Pritesh Nagel MD [Staff Physician] - 1 Week Disposition: HOME - Home Medications Comprehensive Discharge Medication List: Ambulatory Orders Atorvastatin Ca [Lipitor] 40 mg PO HS #30 tablet 06/04/17 Apixaban [Eliquis -] 2.5 mg PO BID #60 tab 11/30/17 Carvedilol [Coreg -] 3.125 mg PO BID #60 tablet 11/30/17 Isosorbide Mononitrate [Imdur -] 30 mg PO DAILY #30 tab.sr.24h 11/30/17 Furosemide [Lasix -] 40 mg PO DAILY 30 Days #30 tablet 09/06/18 Spironolactone [Aldactone -] 25 mg PO DAILY 30 Days #30 tablet 09/06/18 Valsartan [Diovan] 160 mg PO DAILY 30 Days #30 tablet 09/06/18 hydrALAZINE HCL [Apresoline -] 50 mg PO TID 30 Days #90 tablet 09/06/18 This patient is new to me today: Yes Date on this admission: 09/06/18 Emergency Visit: Yes ED Registration Date: 09/03/18 Care time: The patient presented to the Emergency Department on the above date and was hospitalized for further evaluation of their emergent condition. Critical Care patient: No - Discharge Referral Referred to [facility] No
== END 2018-09-06 15:26 | disposition home or self-care (01) | DRG 291 ==
LOC: JER 11:30 → JERBED 15:20 → J4S 09-04 06:32
PROC: 5A09357 Assistance with Respiratory Ventilation, Less than 24 Consecutive Hours, Continuous Positive Airway Pressure (ICD-10-PCS; principal; 2018-09-03)
DX: I13.0 Hypertensive heart and chronic kidney disease with heart failure and stage 1 through stage 4 chronic kidney disease, or unspecified chronic kidney disease (principal); I50.23 Acute on chronic systolic (congestive) heart failure; I16.1 Hypertensive emergency; I43 Cardiomyopathy in diseases classified elsewhere; N18.3 Chronic kidney disease, stage 3 (moderate); I48.91 Unspecified atrial fibrillation; I25.10 Atherosclerotic heart disease of native coronary artery without angina pectoris; Z95.1 Presence of aortocoronary bypass graft; E78.5 Hyperlipidemia, unspecified; I27.20 Pulmonary hypertension, unspecified; Z79.01 Long term (current) use of anticoagulants; E87.6 Hypokalemia; R09.81 Nasal congestion; I36.1 Nonrheumatic tricuspid (valve) insufficiency
CPT/HCPCS: 36415; 70450-TC; 71045-TC-FY; 71046-TC-FY; 80048; 80053; 81003; 81015; 82550; 82553; 83735; 83880; 84100; 84443; 84484; 85025; 85610; 87086; 93005; 93010; 93306-TC; 93971-TC; 94010; 94660; 99285-25

== ENCOUNTER 2019-06-28 07:52 | Inpatient (IN) | payer OTHER ==
--- NOTE | 2019-06-28 08:07 | PDOC ---
History of Present Illness - General Stated Complaint: PAIN Time Seen by Provider: 06/28/19 08:07 History Source: Patient, Leather Staker Used Exam Limitations: Language Barrier - History of Present Illness Initial Comments: Phone applications scientist used: [id number] 84 yo M w a hx of systolic CHF, CAD, s/p pci 2007, CKD, HLD, A fib (on low dose eliquis), pulm HTN, CABG 06/2017 (@ [place] with Dr. Camargo) presented to ED for LLQ pain x3 days associated with constipation x2 days and nausea/ vomiting this AM. Pt reported because of the vomiting he did not take any of his AM medications. He reported the abdominal pain is constant, nonradiating, no aggravating or alleviating factors. He denied blood in stool, chest pain, shortness of breath, fever, lightheadedness. ROS General: denied fever, chills, generalized weakness. HEENT: denied sore throat, rhinorrhea, ear pain. Cardiovascular: denied chest pain, palpitations, syncope, diaphoresis. Respiratory: denied shortness of breath, cough, sputum production, hemoptysis. Gastrointestinal: admitted to abdominal pain, nausea, vomiting, constipation. denied diarrhea, blood in stool. Genitourinary: denied dysuria, increased urinary frequency, hematuria, urinary incontinence, flank pain. Back: denied back pain. Musculoskeletal: denied joint pain, muscle pain, joint swelling. Neurological: denied headache, dizziness, numbness, tingling, weakness. Integumentary: denied rash, laceration, abrasion. Hematologic/Lymphatic: denied bruising or bleeding. PE Constitutional: Well-nourished, Well-developed, appearing stated age. HEENT: head is normocephalic, atraumatic. EOMI. PERRLA. Neck: supple. Full ROM. Cardiovascular: irregular irregular heart rhythm. no murmurs. no pericardial friction rub. Respiratory: clear to auscultation bilaterally. no crackles, rhonchi or wheezing. no stridor. Gastrointestinal: soft, flat. tender to LLQ. normal bowel sounds. no rebound, guarding, masses. Rectal: no external hemorrhoids. very small amount of soft stool palpated in rectal vault. no blood on gloved finger. Genital: bilateral testicles in vertical lie without tenderness or skin changes. Extremities: peripheral pulses intact. no lower extremity edema. Neurological: CN 2-12 grossly intact. moves all four extremities. Psych: awake, alert, oriented x3. follows commands. answers questions appropriately. Past History - Past Medical History Allergies/Adverse Reactions: Allergies Allergy/AdvReac Type Severity Reaction Status Date / Time No Known Allergies Allergy Verified 06/28/19 08:18 Home Medications: Ambulatory Orders Atorvastatin Ca [Lipitor] 40 mg PO HS #30 tablet 06/04/17 Apixaban [Eliquis -] 2.5 mg PO BID #60 tab 11/30/17 Isosorbide Mononitrate [Imdur -] 30 mg PO DAILY #30 tab.sr.24h 11/30/17 Carvedilol [Coreg -] 3.125 mg PO DAILY #60 tablet 09/06/18 Furosemide [Lasix -] 40 mg PO DAILY 30 Days #30 tablet 09/06/18 Spironolactone [Aldactone -] 25 mg PO DAILY 30 Days #30 tablet 09/06/18 Valsartan [Diovan] 160 mg PO DAILY 30 Days #30 tablet 09/06/18 hydrALAZINE HCL [Apresoline -] 50 mg PO TID 30 Days #90 tablet 09/06/18 - Surgical History Cardiac Surgery: Yes (S/P CABG 06/2017) - Immunization History Immunization Up to Date: Yes - Psycho Social/Smoking Cessation Hx Smoking History: Never smoked Have you smoked in the past 12 months: No Hx Alcohol Use: No Drug/Substance Use Hx: No Substance Use Type: None Hx Substance Use Treatment: No ED Treatment Course - LABORATORY CBC & Chemistry Diagram: 06/28/19 08:45 06/28/19 08:45 Medical Decision Making - Medical Decision Making 84 year old male with above PMH presented to ED for LLQ pain associated with 2 days of constipation and nausea/vomiting this AM. Pt reported he did not take his AM medications 2/2 vomiting today. Initial Vital Signs Temp Pulse Resp BP Pulse Ox 97.6 F 61 16 214/114 H 100 06/28/19 07:55 06/28/19 07:55 06/28/19 07:55 06/28/19 07:55 06/28/19 07:55 Afebrile. No tachycardia. No tachypnea. Hypertensive. No hypoxia on room air. Labs ordered: CBC, CMP, lipase, lactate, UA/UC Imaging ordered: CT abdomen/pelvis Medications ordered: zofran 4 mg IV once, tylenol IV, home BP meds (see below) 06/28/19 10:16 Laboratory Last Values WBC 5.2 K/mm3 (4.0-10.0) 06/28/19 08:45 RBC 4.46 M/mm3 (4.00-5.60) 06/28/19 08:45 Hgb 11.5 GM/dL (11.7-16.9) L 06/28/19 08:45 Hct 36.3 % (35.4-49) 06/28/19 08:45 MCV 81.5 fl (80-96) 06/28/19 08:45 MCH 25.9 pg (25.7-33.7) 06/28/19 08:45 MCHC 31.7 g/dl (32.0-35.9) L 06/28/19 08:45 RDW 17.7 % (11.9-15.9) H 06/28/19 08:45 Plt Count 129 K/MM3 (134-434) L 06/28/19 08:45 MPV 8.9 fl (7.5-11.1) 06/28/19 08:45 Absolute Neuts (auto) 4.2 K/mm3 (1.5-8.0) 06/28/19 08:45 Neutrophils % 81.9 % (42.8-82.8) D 06/28/19 08:45 Lymphocytes % 7.7 % (8-40) L D 06/28/19 08:45 Monocytes % 9.7 % (3.8-10.2) 06/28/19 08:45 Eosinophils % 0.2 % (0-4.5) D 06/28/19 08:45 Basophils % 0.5 % (0-2.0) 06/28/19 08:45 Nucleated RBC % 0 % (0-0) 06/28/19 08:45 PT with INR 13.50 SEC (9.7-13.0) H 06/28/19 08:45 INR 1.14 (0.83-1.09) H 06/28/19 08:45 PTT (Actin FS) 30.0 SECONDS (25.2-36.5) 06/28/19 08:45 Sodium 142 mmol/L (136-145) 06/28/19 08:45 Potassium 4.2 mmol/L (3.5-5.1) 06/28/19 08:45 Chloride 111 mmol/L (98-107) H 06/28/19 08:45 Carbon Dioxide 21 mmol/L (21-32) 06/28/19 08:45 Anion Gap 11 MMOL/L (8-16) 06/28/19 08:45 BUN 25.4 mg/dL (7-18) H 06/28/19 08:45 Creatinine 2.6 mg/dL (0.55-1.3) H 06/28/19 08:45 Est GFR (CKD-EPI)AfAm 24.94 06/28/19 08:45 Est GFR (CKD-EPI)NonAf 21.52 06/28/19 08:45 Random Glucose 136 mg/dL (74-106) H 06/28/19 08:45 Lactic Acid 3.1 mmol/L (0.4-2.0) H* 06/28/19 08:45 Calcium 9.0 mg/dL (8.5-10.1) 06/28/19 08:45 Total Bilirubin 0.8 mg/dL (0.2-1) 06/28/19 08:45 AST 44 U/L (15-37) H 06/28/19 08:45 ALT 27 U/L (13-61) 06/28/19 08:45 Alkaline Phosphatase 139 U/L (45-117) H 06/28/19 08:45 Total Protein 7.1 g/dl (6.4-8.2) 06/28/19 08:45 Albumin 3.4 g/dl (3.4-5.0) 06/28/19 08:45 Lipase 196 U/L (73-393) 06/28/19 08:45 Urine Color Yellow 06/28/19 08:46 Urine Appearance Clear 06/28/19 08:46 Urine pH 6.5 (5.0-8.0) 06/28/19 08:46 Ur Specific [place] 1.018 (1.010-1.035) 06/28/19 08:46 Urine Protein 3+ (NEGATIVE) H 06/28/19 08:46 Urine Glucose (UA) Negative (NEGATIVE) 06/28/19 08:46 Urine Ketones Negative (NEGATIVE) 06/28/19 08:46 Urine Blood Negative (NEGATIVE) 06/28/19 08:46 Urine Nitrite Negative (NEGATIVE) 06/28/19 08:46 Urine Bilirubin Negative (NEGATIVE) 06/28/19 08:46 Urine Urobilinogen 0.2 mg/dL (0.2-1.0) 06/28/19 08:46 Ur Leukocyte Esterase Negative (NEGATIVE) 06/28/19 08:46 Urine WBC (Auto) 2 /hpf (0-5) 06/28/19 08:46 Urine Casts (Auto) 3 /lpf (0-8) 06/28/19 08:46 U Epithel Cells (Auto) 1.2 /HPF (0-5/HPF) 06/28/19 08:46 Urine Bacteria (Auto) 2.6 /hpf (NEGATIVE) 06/28/19 08:46 No leukocytosis. Borderline anemia. Lactic acidosis. YFN. No UTI. IVF ordered. 06/28/19 13:20 CT report: Name: [facility] DEPARTMENT OF RADIOLOGY Phys: Stephanie Bell RESIDENT : [id number] Age: 84 Sex: M [facility] Acct: [id number] Loc: [address] Exam Date: 06/28/19 Status: EMILIO Baez [facility] Unit Number: [id number] EXAM#: TYPE/EXAM: RESULT: [id number] CT/ABDOMEN PELVIS CT W/O CONTR Abdomen and pelvis CT without contrast Clinical information: left lower quadrant pain x 3 days Multiplanar imaging was performed. Intravenous contrast was not administered. Oral contrast was administered. No prior dedicated abdomen/pelvis imaging studies are available at this facility for direct comparison. A small right pleural effusion is noted which appears decreased in size versus recurrent in nature in comparison to a chest CT exam of 06/16/2017. Interval resolution of a small left pleural effusion is seen. Status post interval median sternotomy. Multichamber cardiomegaly is again noted. Dense atherosclerotic coronary artery calcifications are visualized. No evidence of pneumoperitoneum, free intraperitoneal fluid or bowel obstruction. Colonic diverticulosis is noted without CT evidence of acute diverticulitis. Mild nonspecific left perirenal soft tissue stranding is noted which may have developed in comparison to the [address] exam which partially imaged that region. Stable 1.3 cm right renal exophytic cortical focus posteriorly probably representing a hyperdense cyst. There is no hydronephrosis. No CT evidence of urolithiasis. Mild to moderate prostate enlargement. The urinary bladder demonstrates no obvious intrinsic CT pathology. Stable hepatic cysts. The spleen , pancreas, gallbladder, and adrenal glands demonstrate no obvious noncontrast pathology. There is no aortic aneurysm. No definite lymphadenopathy is noted on the basis of size criteria. The appendix is not definitely visualized however no indirect CT signs of acute appendicitis are noted. No gross small bowel abnormality is identified. The visualized osseous structures demonstrate no obvious acute pathology. Impression: There is partial imaging of a small right pleural effusion. Multichamber cardiomegaly. Status post median sternotomy. Colonic diverticulosis is noted without CT evidence of acute diverticulitis. Mild nonspecific left perirenal soft tissue stranding is noted which may be chronic in nature versus acute such as with acute pyelonephritis or acute interstitial nephritis. Clinical/laboratory correlation is suggested. Reported By: Tuan Dubon MD 06/28/19 1300 Repeat abdominal exam: tender to LLQ, but improved. Pt would benefit from serial abdominal examinations and observation. Microblog sent. No PCP. Discharge - Discharge Information Problems reviewed: Yes Clinical Impression/Diagnosis: Lactic acidosis, YFN (acute kidney injury), Abdominal pain Condition: Stable - Admission Yes - Follow up/Referral - Patient Discharge Instructions - Post Discharge Activity
[2019-06-28] MEDS ORDERED: ONDANSETRON 4 MG/2 ML VIAL IVPUSH ONE (08:12)
[2019-06-28] MEDS ORDERED: ACETAMINOPHEN 1000 MG/100 ML VIAL (NON FORMULARY) IVPB ONE (08:12)
[2019-06-28] MEDS ORDERED: hydrALAZINE HCL 50 MG TABLET (FP) PO ONE (08:34)
[2019-06-28] MEDS ORDERED: VALSARTAN 160 MG TABLET (UD) PO ONE (08:35)
[2019-06-28] MEDS ORDERED: CARVEDILOL 3.125 MG TABLET (FP) PO ONE (08:35)
[2019-06-28] MEDS ORDERED: CARVEDILOL 3.125 MG TABLET (FP) ONE (08:51)
[2019-06-28] MEDS ORDERED: hydrALAZINE HCL 25 MG TABLET (FP) ONE (08:51)
[2019-06-28] MEDS ORDERED: ONDANSETRON 4 MG/2 ML VIAL ONE (08:52)
[2019-06-28] MEDS ORDERED: VALSARTAN 80 MG TABLET (UD) ONE (08:52)
[2019-06-28] MEDS ORDERED: ACETAMINOPHEN INJECTION 100 ML IVPB ONE (08:52)
[2019-06-28 09:32] LABS: BASO % 0.5 % (0-2.0); EOS % 0.2 % (0-4.5); HEMATOCRIT 36.3 % (35.4-49); HEMOGLOBIN 11.5 GM/dL (11.7-16.9); LYMPH % 7.7 % (8-40); MCH 25.9 pg (25.7-33.7); MCHC 31.7 g/dl (32.0-35.9); MEAN CELL VOLUME 81.5 fl (80-96); MEAN PLT VOLUME 8.9 fl (7.5-11.1); MONO % 9.7 % (3.8-10.2); NEUT % 81.9 % (42.8-82.8); PLATELET COUNT 129 K/MM3 (134-434); RBC 4.46 M/mm3 (4.00-5.60); RDW 17.7 % (11.9-15.9); WHITE BLOOD COUNT 5.2 K/mm3 (4.0-10.0)
[2019-06-28 09:55] LABS: EPI CELLS 1.2 /HPF (0-5/HPF); HYALINE CASTS 3 /lpf (0-8); PH,URINE 6.5 (5.0-8.0); URINE APPEARANCE CLEAR; URINE BACTERIA 2.6 /hpf (NEGATIVE); URINE BILIRUBIN NEGATIVE (NEGATIVE); URINE COLOR YELLOW; URINE GLUCOSE (UA) NEGATIVE (NEGATIVE); URINE KETONE NEGATIVE (NEGATIVE); URINE LEUK ESTERASE NEGATIVE (NEGATIVE); URINE NITRITE NEGATIVE (NEGATIVE); URINE PROTEIN 3+ (NEGATIVE); URINE UROBILINOGEN 0.2 mg/dL (0.2-1.0); URINE WBC 2 /hpf (0-5)
[2019-06-28 09:55] LABS: INR 1.14 (0.83-1.09); PROTHROMBIN TIME (PATIENT) 13.5 SEC (9.7-13.0)
[2019-06-28] MEDS ORDERED: SODIUM CHLORIDE 2,177 ML IV ONE (10:01)
[2019-06-28 10:13] LABS: ALBUMIN 3.4 g/dl (3.4-5.0); BILIRUBIN,TOTAL 0.8 mg/dL (0.2-1); BLOOD UREA NITROGEN 25.4 mg/dL (7-18); CREATININE 2.6 mg/dL (0.55-1.3); POTASSIUM 4.2 mmol/L (3.5-5.1); TOT PROT 7.1 g/dl (6.4-8.2)
[2019-06-28 16:55] LABS: URINE RBC 9.6 /hpf (0-4)
[2019-06-28 18:41] VITALS: BMI 29.2
--- NOTE | 2019-06-28 18:48 | HP ---
CHIEF COMPLAINT: n/v and abdominal pain x 2 D HISTORY OF PRESENT ILLNESS: CYRACOM: Georgian [id number] 83 yo M w/ PMH of systolic CHF, CAD s/p PCI 08 and CABG 07/08, CKD, Afib on low dose eliquis presents w/ nausea vomiting and LLQ abdominal pain. Patient has been vomiting (non bloody) and not eating well. Abdominal pain constant, non radiating located in LLQ. Patient also states he has been constipated for the past 2 days. Denies sob, chest pain, cough, fever or chills PAST MEDICAL HISTORY: per HPI PAST SURGICAL HISTORY: per HPI Social History: Smoking:denies Alcohol:denies Drugs: Allergies No Known Allergies Allergy (Verified 06/28/19 08:18) HOME MEDICATIONS: Home Medications Medication Instructions Recorded Atorvastatin Ca [Lipitor] 40 mg PO HS #30 tablet 06/04/17 Apixaban [Eliquis -] 2.5 mg PO BID #60 tab 11/30/17 Isosorbide Mononitrate [Imdur -] 30 mg PO DAILY #30 tab.sr.24h 11/30/17 Carvedilol [Coreg -] 3.125 mg PO DAILY #60 tablet 09/06/18 Furosemide [Lasix -] 40 mg PO DAILY 30 Days #30 tablet 09/06/18 Spironolactone [Aldactone -] 25 mg PO DAILY 30 Days #30 tablet 09/06/18 Valsartan [Diovan] 160 mg PO DAILY 30 Days #30 tablet 09/06/18 hydrALAZINE HCL [Apresoline -] 50 mg PO TID 30 Days #90 tablet 09/06/18 REVIEW OF SYSTEMS CONSTITUTIONAL: Absent: fever, chills, diaphoresis, generalized weakness, malaise, loss of appetite, weight change HEENT: Absent: rhinorrhea, nasal congestion, throat pain, throat swelling, difficulty swallowing, mouth swelling, ear pain, eye pain, visual changes CARDIOVASCULAR: Absent: chest pain, syncope, palpitations, irregular heart rate, lightheadedness , peripheral edema RESPIRATORY: Absent: cough, shortness of breath, dyspnea with exertion, orthopnea, wheezing, stridor, hemoptysis GASTROINTESTINAL: +nausea, +vomiting + LLQ pain GENITOURINARY: Absent: dysuria, frequency, urgency, hesitancy, hematuria, flank pain, genital pain MUSCULOSKELETAL: Absent: myalgia, arthralgia, joint swelling, back pain, neck pain SKIN: Absent: rash, itching, pallor HEMATOLOGIC/IMMUNOLOGIC: Absent: easy bleeding, easy bruising, lymphadenopathy, frequent infections ENDOCRINE: Absent: unexplained weight gain, unexplained weight loss, heat intolerance, cold intolerance NEUROLOGIC: Absent: headache, focal weakness or paresthesias, dizziness, unsteady gait, seizure, mental status changes, bladder or bowel incontinence PSYCHIATRIC: Absent: anxiety, depression, suicidal or homicidal ideation, hallucinations. PHYSICAL EXAMINATION Vital Signs - 24 hr 06/28/19 06/28/19 07:55 14:50 Temperature 97.6 F Pulse Rate 61 Pulse Rate [ 60 Left] Respiratory 16 16 Rate Blood Pressure 214/114 H Blood Pressure 180/62 H [Arm] O2 Sat by Pulse 100 99 Oximetry (%) GENERAL: Awake, alert, and fully oriented, in no acute distress. HEAD: Normal with no signs of trauma. EYES: Pupils equal, round and reactive to light, extraocular movements intact, sclera anicteric, conjunctiva clear. No lid lag. EARS, NOSE, THROAT: Ears normal, nares patent, oropharynx clear without exudates. Moist mucous membranes. NECK: Normal range of motion, supple without lymphadenopathy, JVD, or masses. LUNGS: Breath sounds equal, clear to auscultation bilaterally. No wheezes, and no crackles. No accessory muscle use. HEART: Regular rate and rhythm, normal S1 and S2 without murmur, rub or gallop. ABDOMEN: Soft, nontender, not distended, normoactive bowel sounds, no guarding, no rebound, no masses. No hepatomegaly or splenomegaly. MUSCULOSKELETAL: Normal range of motion at all joints. No bony deformities or tenderness. No CVA tenderness. UPPER EXTREMITIES: 2+ pulses, warm, well-perfused. No cyanosis. No clubbing. No peripheral edema. LOWER EXTREMITIES: 2+ pulses, warm, well-perfused. No calf tenderness. No peripheral edema. NEUROLOGICAL: Cranial nerves II-XII intact. Normal speech. Normal gait. PSYCHIATRIC: Cooperative. Good eye contact. Appropriate mood and affect. SKIN: Warm, dry, normal turgor, no rashes or lesions noted, normal capillary refill. Laboratory Results - last 24 hr 06/28/19 06/28/19 06/28/19 08:45 08:45 08:45 WBC 5.2 RBC 4.46 Hgb 11.5 L Hct 36.3 MCV 81.5 MCH 25.9 MCHC 31.7 L RDW 17.7 H Plt Count 129 L MPV 8.9 Absolute Neuts (auto) 4.2 Neutrophils % 81.9 D Lymphocytes % 7.7 L D Monocytes % 9.7 Eosinophils % 0.2 D Basophils % 0.5 Nucleated RBC % 0 PT with INR 13.50 H INR 1.14 H PTT (Actin FS) 30.0 Sodium 142 Potassium 4.2 Chloride 111 H Carbon Dioxide 21 Anion Gap 11 BUN 25.4 H Creatinine 2.6 H Est GFR (CKD-EPI)AfAm 24.94 Est GFR (CKD-EPI)NonAf 21.52 Random Glucose 136 H Lactic Acid Calcium 9.0 Total Bilirubin 0.8 AST 44 H ALT 27 Alkaline Phosphatase 139 H Total Protein 7.1 Albumin 3.4 Lipase 196 Urine Color Urine Appearance Urine pH Ur Specific Troy Urine Protein Urine Glucose (UA) Urine Ketones Urine Blood Urine Nitrite Urine Bilirubin Urine Urobilinogen Ur Leukocyte Esterase Urine WBC (Auto) Urine RBC (Auto) Urine Casts (Auto) U Epithel Cells (Auto) Urine Bacteria (Auto) Blood Type Antibody Screen 06/28/19 06/28/19 06/28/19 08:45 08:45 08:46 WBC RBC Hgb Hct MCV MCH MCHC RDW Plt Count MPV Absolute Neuts (auto) Neutrophils % Lymphocytes % Monocytes % Eosinophils % Basophils % Nucleated RBC % PT with INR INR PTT (Actin FS) Sodium Potassium Chloride Carbon Dioxide Anion Gap BUN Creatinine Est GFR (CKD-EPI)AfAm Est GFR (CKD-EPI)NonAf Random Glucose Lactic Acid 3.1 H* Calcium Total Bilirubin AST ALT Alkaline Phosphatase Total Protein Albumin Lipase Urine Color Yellow Urine Appearance Clear Urine pH 6.5 Ur Specific Troy 1.018 Urine Protein 3+ H Urine Glucose (UA) Negative Urine Ketones Negative Urine Blood Negative Urine Nitrite Negative Urine Bilirubin Negative Urine Urobilinogen 0.2 Ur Leukocyte Esterase Negative Urine WBC (Auto) 2 Urine RBC (Auto) 9.6 Urine Casts (Auto) 3 U Epithel Cells (Auto) 1.2 Urine Bacteria (Auto) 2.6 Blood Type A POSITIVE Antibody Screen Negative 06/28/19 06/28/19 13:12 13:22 WBC RBC Hgb Hct MCV MCH MCHC RDW Plt Count MPV Absolute Neuts (auto) Neutrophils % Lymphocytes % Monocytes % Eosinophils % Basophils % Nucleated RBC % PT with INR INR PTT (Actin FS) Sodium Potassium Chloride Carbon Dioxide Anion Gap BUN Creatinine Est GFR (CKD-EPI)AfAm Est GFR (CKD-EPI)NonAf Random Glucose Lactic Acid 2.0 Calcium Total Bilirubin AST ALT Alkaline Phosphatase Total Protein Albumin Lipase Urine Color Urine Appearance Urine pH Ur Specific Troy Urine Protein Urine Glucose (UA) Urine Ketones Urine Blood Urine Nitrite Urine Bilirubin Urine Urobilinogen Ur Leukocyte Esterase Urine WBC (Auto) Urine RBC (Auto) Urine Casts (Auto) U Epithel Cells (Auto) Urine Bacteria (Auto) Blood Type A POSITIVE Antibody Screen ASSESSMENT/PLAN: 83 yo M w/ PMH of systolic CHF, CAD s/p PCI 08 and CABG 07/08, CKD, Afib on low dose eliquis presents w/ nausea vomiting and LLQ abdominal pain. CT abdomen showing nonspecific left perirenal soft tissue stranding likely chronic in nature. UA negative and patient denies dysuria. Abdominal pain likely related to constipation vs possible viral infection with nausea and vomiting. Admitted for abdominal pain w/ lactic acidosis (likely due to dehydration) and n/v. # Abdominal pain w/ nausea and vomiting. Abdominal pain likely 2/2 constipation vs viral infection. Elevated lactic acid likely 2/2 dehydration no leukocytosis, fever, or chills - IV fluids given in ER - will hold home med lasix and spironolactone - fluids w/ caution w/ hx of systolic CHF w/ recent exacerbation - bowel regimen - antiemetics - CT abdomen showing perirenal stranding non specific. UA negative and patient denies dysuria - f/u BC # YFN on CKD - hold JOSE E inhibitor and diuretics - avoid nephrotoxic meds - fluids w/ caution in setting of CHF - renal consult # CAD, HTN, Afib and systolic CHF - diuretics hold - c/w eliquis - c/w statin and bblocker - jose e held, c/w home BP meds # dvt ppx: on eliquis Problem List - Problem (1) YFN (acute kidney injury) Code(s): N17.9 - ACUTE KIDNEY FAILURE, UNSPECIFIED (2) Abdominal pain Code(s): R10.9 - UNSPECIFIED ABDOMINAL PAIN (3) Lactic acidosis Code(s): E87.2 - ACIDOSIS (4) Atrial fibrillation Code(s): I48.91 - UNSPECIFIED ATRIAL FIBRILLATION (5) CHF (congestive heart failure) Code(s): I50.9 - HEART FAILURE, UNSPECIFIED Qualifiers: Heart failure type: unspecified Heart failure chronicity: acute Qualified Code(s): I50.9 - Heart failure, unspecified (6) HTN (hypertension) Code(s): I10 - ESSENTIAL (PRIMARY) HYPERTENSION (7) Hx of CABG Code(s): Z95.1 - PRESENCE OF AORTOCORONARY BYPASS GRAFT (8) Pulmonary hypertension Code(s): I27.2 - OTHER SECONDARY PULMONARY HYPERTENSION * DO NOT USE * Visit type - Emergency Visit Emergency Visit: Yes ED Registration Date: 06/28/19 Care time: The patient presented to the Emergency Department on the above date and was hospitalized for further evaluation of their emergent condition. - New Patient This patient is new to me today: Yes Date on this admission: 06/28/19 - Critical Care Critical Care patient: No
[2019-06-28] MEDS ORDERED: ACETAMINOPHEN 650 MG/20.3 ML ORAL SOLUTION (CUPS) PO PRN (18:53)
[2019-06-28] MEDS ORDERED: ONDANSETRON 4 MG TABLET PO PRN (18:57)
[2019-06-28] MEDS: ATORVASTATIN CA 40 MG TABLET (FP) PO SCH (21:15)
[2019-06-28] MEDS: APIXABAN 2.5 MG TABLET PO SCH (21:15)
[2019-06-28] MEDS: hydrALAZINE HCL 50 MG TABLET (FP) PO SCH (21:15)
[2019-06-28] MEDS: DOCUSATE SODIUM 100 MG CAPSULE (FP) PO SCH (21:15)
[2019-06-28] MEDS: SENNOSIDES 8.6MG TABLET (FP) PO SCH (21:15)
[2019-06-28] MEDS: POLYETHYLENE GLYCOL 3350 119 GM BTL PO SCH (21:15)
[2019-06-28] MEDS ORDERED: HEPARIN NA (PORCINE) 5,000 UNITS/ML 1ML VIAL SQ SCH (22:00)
[2019-06-28] MEDS ORDERED: amLODIPine BESYLATE 5 MG TABLET (FP) PO ONE (22:49)
[2019-06-29] MEDS: hydrALAZINE HCL 50 MG TABLET (FP) PO SCH ×3 (05:20→21:40)
[2019-06-29 07:59] LABS: BASO % 0.1 % (0-2.0); EOS % 0.2 % (0-4.5); HEMATOCRIT 34.3 % (35.4-49); HEMOGLOBIN 11.1 GM/dL (11.7-16.9); LYMPH % 9.4 % (8-40); MCH 25.9 pg (25.7-33.7); MCHC 32.4 g/dl (32.0-35.9); MEAN CELL VOLUME 79.9 fl (80-96); MEAN PLT VOLUME 8.9 fl (7.5-11.1); MONO % 10.7 % (3.8-10.2); NEUT % 79.6 % (42.8-82.8); PLATELET COUNT 117 K/MM3 (134-434); RBC 4.29 M/mm3 (4.00-5.60); RDW 17.4 % (11.9-15.9); WHITE BLOOD COUNT 7.8 K/mm3 (4.0-10.0)
[2019-06-29 08:24] LABS: ALBUMIN 3.2 g/dl (3.4-5.0); BILIRUBIN,TOTAL 1.3 mg/dL (0.2-1); BLOOD UREA NITROGEN 25.4 mg/dL (7-18); CALCIUM 8.8 mg/dL (8.5-10.1); CREATININE 2.5 mg/dL (0.55-1.3); MAGNESIUM 2.2 mg/dL (1.8-2.4); PHOSPHOROUS 3.6 mg/dL (2.5-4.9); POTASSIUM 3.5 mmol/L (3.5-5.1); TOT PROT 6.6 g/dl (6.4-8.2)
[2019-06-29] MEDS: ISOSORBIDE MONONITRATE 30 MG TAB.SR.24H (FP) PO SCH (09:54)
[2019-06-29] MEDS: DOCUSATE SODIUM 100 MG CAPSULE (FP) PO SCH (09:54)
[2019-06-29] MEDS: SENNOSIDES 8.6MG TABLET (FP) PO SCH ×2 (09:54→21:40)
[2019-06-29] MEDS: POLYETHYLENE GLYCOL 3350 119 GM BTL PO SCH (09:54)
[2019-06-29] MEDS: APIXABAN 2.5 MG TABLET PO SCH ×2 (09:54→21:40)
[2019-06-29] MEDS ORDERED: PT OWN MED DRAWER 7, Y5N ONE ×2 (09:55→20:23)
[2019-06-29] MEDS ORDERED: CARVEDILOL 3.125 MG TABLET (FP) PO SCH ×2 (10:00)
--- NOTE | 2019-06-29 10:51 | CON.NEP ---
Consult Consult Specialty:: Nephrology - History of Present Illness Chief Complaint: abdominal pain History of Present Illness: 83 yo M w/ PMH of systolic CHF, CAD s/p PCI 08 and CABG 07/08, CKD, Afib on low dose eliquis presents w/ nausea vomiting and LLQ abdominal pain. Patient has been vomiting (non bloody) and not eating well. He states that his renal insufficiency is a new finding for him. Feels better today. Did not have a BM for 2 days. Has no pain now. - History Source History Provided By: Patient, Medical Record Limitations to Obtaining History: No Limitations - Past Medical History Cardio/Vascular: Yes: AFIB, CAD, CHF, HTN Pulmonary: Yes: Bronchitis Renal/: Yes: Renal Inusuff - Past Surgical History Past Surgical History: Yes: CABG, Stent - Alcohol/Substance Use Hx Alcohol Use: No - Smoking History Smoking history: Never smoked Have you smoked in the past 12 months: No - Social History Usual Living Arrangement: Alone Home Medications - Allergies Allergies/Adverse Reactions: Allergies Allergy/AdvReac Type Severity Reaction Status Date / Time No Known Allergies Allergy Verified 06/28/19 08:18 - Home Medications Home Medications: Ambulatory Orders Atorvastatin Ca [Lipitor] 40 mg PO HS #30 tablet 06/04/17 Apixaban [Eliquis -] 2.5 mg PO BID #60 tab 11/30/17 Isosorbide Mononitrate [Imdur -] 30 mg PO DAILY #30 tab.sr.24h 11/30/17 Carvedilol [Coreg -] 3.125 mg PO DAILY #60 tablet 09/06/18 Furosemide [Lasix -] 40 mg PO DAILY 30 Days #30 tablet 09/06/18 Spironolactone [Aldactone -] 25 mg PO DAILY 30 Days #30 tablet 09/06/18 Valsartan [Diovan] 160 mg PO DAILY 30 Days #30 tablet 09/06/18 hydrALAZINE HCL [Apresoline -] 50 mg PO TID 30 Days #90 tablet 09/06/18 Review of Systems - Review of Systems Constitutional: reports: No Symptoms Eyes: reports: No Symptoms HENT: reports: No Symptoms Neck: reports: No Symptoms Cardiovascular: reports: No Symptoms Respiratory: reports: No Symptoms Gastrointestinal: reports: Abdominal Pain, Nausea, Vomiting Genitourinary: reports: No Symptoms Breasts: reports: No Symptoms Reported Musculoskeletal: reports: No Symptoms Integumentary: reports: No Symptoms Neurological: reports: No Symptoms Endocrine: reports: No Symptoms Hematology/Lymphatic: reports: No Symptoms Psychiatric: reports: No Symptoms Nephrology Consult - Height Height: 5 ft 4 in - Weight Weight: 170 lb 4.8 oz - BMI Body Mass Index (BMI): 29.2 - Lab Results CBC,BMP: CBC, BMP 06/29/19 06:35 06/29/19 06:35 Anion Gap: Anion Gap Anion Gap 10 MMOL/L (8-16) 06/29/19 06:35 - Imaging Cat Scan: Report Reviewed - Physical Examination Vital Signs: Vital Signs Temperature 98.8 F 06/29/19 09:53 Pulse Rate 76 06/29/19 09:53 Respiratory Rate 18 06/29/19 09:53 Blood Pressure 155/71 06/29/19 09:53 O2 Sat by Pulse Oximetry (%) 97 06/28/19 21:00 Constitutional: Yes: Well Nourished, No Distress, Calm Eyes: Yes: Conjunctiva Clear, EOM Intact HENT: Yes: Atraumatic, Normocephalic Neck: Yes: Supple, Trachea Midline Cardiovascular: Yes: Pulse Irregular, S1, S2 Respiratory: Yes: Regular, CTA Bilaterally Gastrointestinal: Yes: Normal Bowel Sounds. No: Distention Renal/: Yes: WNL Musculoskeletal: Yes: WNL Extremities: Yes: WNL Edema: No Wound/Incision: Yes: Clean/Dry Neurological: Yes: Alert, Oriented Psychiatric: Yes: Alert, Oriented Assessment/Plan IMPRESSION -CKD- pt has several previous creatinines that are elevated, probably from diabetes -ABDOMINAL PAIN- unclear etiology. He may have passed a kidney stone or have had gas. It has resolved and he is not tender. Perhaps it was dueto vomiting -CAD s/p CABG -AFIB on eliquis -MILD ANEMIA -DM -PERINEPHRIC STRANDING- somewhat nonspecific especially considering his pain is gone -HEPATIC CYSTS PLAN would hydrate gently monitor renal function obtain liver sono- especially with rise in LFTs urine protein and creat urine sodium MV
--- NOTE | 2019-06-29 15:20 | PN ---
Physical Exam: SUBJECTIVE: Patient seen and examined. States that his abdominal pain has resolved. Denies active nausea or vomiting [facility]# [id number] OBJECTIVE: Vital Signs Period Temp Pulse Resp BP Sys/Ayala Pulse Ox Last 24 Hr 97.7 F-98.8 F 56-78 18-25 155-192/71-99 97-100 GENERAL: The patient is awake, alert, and fully oriented, in no acute distress. NECK: supple LUNGS: Breath sounds equal, clear to auscultation bilaterally, no wheezes, no crackles, no accessory muscle use. HEART: Regular rate and rhythm, S1, S2 without murmur, rub or gallop. ABDOMEN: Soft, nontender, nondistended, normoactive bowel sounds EXTREMITIES: 2+ pulses, warm, well-perfused, no edema. PSYCH: Normal mood, normal affect. SKIN: Warm, dry, normal turgor, no rashes or lesions noted Laboratory Results - last 24 hr 06/28/19 06/29/19 06/29/19 08:46 06:35 06:35 WBC 7.8 RBC 4.29 Hgb 11.1 L Hct 34.3 L MCV 79.9 L MCH 25.9 MCHC 32.4 RDW 17.4 H Plt Count 117 L MPV 8.9 Absolute Neuts (auto) 6.2 Neutrophils % 79.6 Lymphocytes % 9.4 D Monocytes % 10.7 H Eosinophils % 0.2 Basophils % 0.1 Nucleated RBC % 0 Sodium 141 Potassium 3.5 Chloride 110 H Carbon Dioxide 21 Anion Gap 10 BUN 25.4 H Creatinine 2.5 H Est GFR (CKD-EPI)AfAm 26.15 Est GFR (CKD-EPI)NonAf 22.57 Random Glucose 100 Calcium 8.8 Phosphorus 3.6 Magnesium 2.2 Total Bilirubin 1.3 H AST 44 H ALT 28 Alkaline Phosphatase 131 H Total Protein 6.6 Albumin 3.2 L Urine RBC (Auto) 9.6 Active Medications Generic Name Dose Route Start Last Admin Trade Name Freq PRN Reason Stop Dose Admin Acetaminophen 650 mg 06/28/19 21:51 Tylenol Oral Solution - PO Q6H PRN PAIN LEVEL 6-10 Apixaban 2.5 mg 06/28/19 22:00 06/29/19 09:54 Eliquis - PO 2.5 mg BID TORIN Administration Atorvastatin Calcium 40 mg 06/28/19 22:00 06/28/19 21:15 Lipitor - PO 40 mg HS TORIN Administration Carvedilol 3.125 mg 06/29/19 10:00 06/29/19 09:56 Coreg - PO 3.125 mg DAILY TORIN Administration Docusate Sodium 100 mg 06/28/19 19:00 06/29/19 09:54 Colace - PO 100 mg DAILY TORIN Administration Hydralazine HCl 50 mg 06/28/19 22:00 06/29/19 14:53 Apresoline - PO 50 mg TID TORIN Administration Isosorbide Mononitrate 30 mg 06/29/19 10:00 06/29/19 09:54 Imdur - PO 30 mg DAILY TORIN Administration Ondansetron HCl 4 mg 06/28/19 18:57 Zofran - PO Q6H PRN NAUSEA Polyethylene Glycol 17 gm 06/28/19 19:00 06/29/19 09:54 Miralax (For Daily Use) - PO 17 gm DAILY TORIN Administration Senna 1 tab 06/28/19 22:00 06/29/19 09:54 Senna - PO 1 tab BID TORIN Administration ASSESSMENT/PLAN: 83 yo M w/ PMH of systolic CHF, CAD s/p PCI 08 and CABG 07/08, CKD, Afib on low dose eliquis presents w/ nausea vomiting and LLQ abdominal pain. CT abdomen showing nonspecific left perirenal soft tissue stranding likely chronic in nature. UA negative and patient denies dysuria. Abdominal pain likely related to constipation vs possible viral infection with nausea and vomiting. Admitted for abdominal pain w/ lactic acidosis (likely due to dehydration) and n/v. # Abdominal pain w/ nausea and vomiting. Abdominal pain now resolved likely 2/2 constipation vs viral infection vs passage of kidney stone. Elevated lactic acid likely 2/2 dehydration no leukocytosis, fever, or chills - will hold home med lasix and spironolactone - restart when fluid status improves - fluids w/ caution w/ hx of systolic CHF w/ recent exacerbation - bowel regimen - antiemetics - CT abdomen showing perirenal stranding non specific. UA negative and patient denies dysuria - f/u BC - monitor LFTs - if trend higher consider liver US # CKD - seen by nephrology - urine studies ordered - Perinephric stranding non specific on imaging - avoid nephrotoxic meds - fluids w/ caution in setting of CHF # CAD, HTN, Afib and systolic CHF - diuretics held - c/w eliquis - c/w statin and bblocker - patty held, c/w home BP meds # dvt ppx: on eliquis Problem List - Problems (1) YFN (acute kidney injury) Code(s): N17.9 - ACUTE KIDNEY FAILURE, UNSPECIFIED (2) Abdominal pain Code(s): R10.9 - UNSPECIFIED ABDOMINAL PAIN (3) Lactic acidosis Code(s): E87.2 - ACIDOSIS (4) Atrial fibrillation Code(s): I48.91 - UNSPECIFIED ATRIAL FIBRILLATION (5) CHF (congestive heart failure) Code(s): I50.9 - HEART FAILURE, UNSPECIFIED Qualifiers: Heart failure type: unspecified Heart failure chronicity: acute Qualified Code(s): I50.9 - Heart failure, unspecified (6) HTN (hypertension) Code(s): I10 - ESSENTIAL (PRIMARY) HYPERTENSION (7) Hx of CABG Code(s): Z95.1 - PRESENCE OF AORTOCORONARY BYPASS GRAFT (8) Pulmonary hypertension Code(s): I27.2 - OTHER SECONDARY PULMONARY HYPERTENSION * DO NOT USE * Visit type - Emergency Visit Emergency Visit: Yes ED Registration Date: 06/28/19 Care time: The patient presented to the Emergency Department on the above date and was hospitalized for further evaluation of their emergent condition. - New Patient This patient is new to me today: No - Critical Care Critical Care patient: No - Discharge Referral Referred to [facility] No
[2019-06-29] MEDS ORDERED: SODIUM PHOSPHATE/NA BIPHOS 133 ML ENEMA PR ONE (15:47)
[2019-06-29] MEDS: SODIUM CHLORIDE 1,000 ML IV SCH (17:15)
[2019-06-29] MEDS ORDERED: MINERAL OIL ENEMA 133 ML ENEMA PR ONE (17:36)
[2019-06-29] MEDS: CARVEDILOL 3.125 MG TABLET (FP) PO SCH (21:40)
[2019-06-29] MEDS: ATORVASTATIN CA 40 MG TABLET (FP) PO SCH (21:40)
--- NOTE | 2019-06-29 22:27 | PDOC ---
Documentation entered by Shy Matt SCRIBE, acting as scribe for Louis Das MD. Louis Das MD: This documentation has been prepared by the Shaka portillo Brenda, SCRIBE, under my direction and personally reviewed by me in its entirety. I confirm that the documentation accurately reflects all work, treatment, procedures, and medical decision making performed by me. Attending Attestation - Resident Resident Name: Stephanie Bell - ED Attending Attestation I have performed the following: I have examined & evaluated the patient, The case was reviewed & discussed with the resident, I agree w/resident's findings & plan, Exceptions are as noted - HPI HPI: 06/28/19 10:02 The patient is an 84 year old male, with a significant PMH of systolic CHF, CAD , s/p pci 2007, CKD, HLD, A fib (on low dose eliquis), pulmonary HTN and CABG (@ [place] with Dr. Camargo) who presents to the emergency department with 3 days of constant left lower quadrant pain, accompanied by 2 days of constipation. As per patient, the pain is nonradiating and does not have any aggravating or alleviating factors. He also endorses nausea and vomiting this morning. The patient denies chest pain, shortness of breath, headache and dizziness. Denies fever, chills and diarrhea. Denies any urinary symptoms. Allergies: NKA Past surgical history: CABG 06/2017 Social history: No reported history of tobacco use, alcohol use or illicit drug use. - Physicial Exam PE: 06/28/19 10:02 Vitals: Triage vital signs reviewed General Appearance: No acute distress, well nourished, well developed Head: Atraumatic Chest Wall: Nontender Cardiac: Regular rate and rhythm, no murmurs, no rubs, no gallops Lungs: Clear to auscultation bilateral, good air movement bilaterally Abdomen: Soft, nondistended, normal bowel sounds, left lower quadrant tenderness to palpation Extremities: Full range of motion to all extremities, no cyanosis, clubbing, or edema Skin: Warm and dry, no rashes or lesions, no rash, no petechiae Psych: Normal mood, normal affect - Medical Decision Making 06/28/19 11:25 84 years old with moderate to severe left lower quadrant pain tenderness to palpation on examination we will check labs hydrate CAT scan with oral contrast observe and reassess Reevaluation lactic elevated 3.2 but no fever no white count CAT scan abdomen pelvis with no evidence of any acute pathology patient hydrated and lactic acid is normalized patient still with some abdominal discomfort lactic acidosis may be secondary to volume depletion given that his abdominal pain is improving low suspicious for ischemic diet at this time however given age and comorbidities will admit for observation serial abdominal examinations and follow-up on blood work as well as hydration
--- NOTE | 2019-06-30 00:56 | EKG ---
Test Reason : Blood Pressure : / mmHG Vent. Rate : 071 BPM Atrial Rate : 051 BPM P-R Int : 000 ms QRS Dur : 106 ms QT Int : 424 ms P-R-T Axes : 000 046 197 degrees QTc Int : 460 ms ATRIAL FIBRILLATION WITH PREMATURE VENTRICULAR OR ABERRANTLY CONDUCTED COMPLEXES LEFT VENTRICULAR HYPERTROPHY WITH REPOLARIZATION ABNORMALITY ABNORMAL ECG WHEN COMPARED WITH ECG OF 28-JUN-2019 08:47, NO SIGNIFICANT CHANGE WAS FOUND Confirmed by LTIZY LY MD ([id number]) on 06/30/2019 12:55:32 AM Referred By: Confirmed By:LITZY LY MD
--- NOTE | 2019-06-30 01:06 | EKG ---
Test Reason : Blood Pressure : / mmHG Vent. Rate : 079 BPM Atrial Rate : 086 BPM P-R Int : 000 ms QRS Dur : 104 ms QT Int : 444 ms P-R-T Axes : 000 036 182 degrees QTc Int : 509 ms ATRIAL FIBRILLATION WITH PREMATURE VENTRICULAR OR ABERRANTLY CONDUCTED COMPLEXES MINIMAL VOLTAGE CRITERIA FOR LVH, MAY BE NORMAL VARIANT PROLONGED QT ABNORMAL ECG WHEN COMPARED WITH ECG OF 03-SEP-2018 12:01, NO SIGNIFICANT CHANGE WAS FOUND Confirmed by LITZY LY MD ([id number]) on 06/30/2019 1:06:28 AM Referred By: Confirmed By:LITZY LY MD
[2019-06-30] MEDS: hydrALAZINE HCL 50 MG TABLET (FP) PO SCH ×3 (06:08→21:49)
[2019-06-30 08:05] LABS: BASO % 0.4 % (0-2.0); EOS % 0.1 % (0-4.5); HEMATOCRIT 32.1 % (35.4-49); HEMOGLOBIN 10.3 GM/dL (11.7-16.9); LYMPH % 5.7 % (8-40); MCHC 32.1 g/dl (32.0-35.9); MEAN CELL VOLUME 81.1 fl (80-96); MEAN PLT VOLUME 9.3 fl (7.5-11.1); MONO % 10.8 % (3.8-10.2); PLATELET COUNT 95 K/MM3 (134-434); RBC 3.96 M/mm3 (4.00-5.60); RDW 17.7 % (11.9-15.9); WHITE BLOOD COUNT 9.7 K/mm3 (4.0-10.0)
[2019-06-30 08:32] LABS: ALBUMIN 2.7 g/dl (3.4-5.0); BILIRUBIN,DIRECT 0.5 mg/dL (0.0-0.2); BILIRUBIN,TOTAL 1.3 mg/dL (0.2-1); TOT PROT 5.9 g/dl (6.4-8.2)
[2019-06-30 08:38] LABS: BLOOD UREA NITROGEN 29.6 mg/dL (7-18); CALCIUM 8.5 mg/dL (8.5-10.1); CREATININE 2.7 mg/dL (0.55-1.3); POTASSIUM 3.6 mmol/L (3.5-5.1)
[2019-06-30] MEDS: POLYETHYLENE GLYCOL 3350 119 GM BTL PO SCH ×2 (09:30→09:48)
[2019-06-30] MEDS: SENNOSIDES 8.6MG TABLET (FP) PO SCH ×3 (09:31→21:49)
[2019-06-30] MEDS: APIXABAN 2.5 MG TABLET PO SCH ×2 (09:32→21:47)
[2019-06-30] MEDS: ISOSORBIDE MONONITRATE 30 MG TAB.SR.24H (FP) PO SCH (09:32)
[2019-06-30] MEDS: DOCUSATE SODIUM 100 MG CAPSULE (FP) PO SCH ×2 (09:32→09:48)
[2019-06-30] MEDS ORDERED: PT OWN MED DRAWER 7, Y5N ONE ×3 (09:37→20:49)
[2019-06-30] MEDS: CARVEDILOL 3.125 MG TABLET (FP) PO SCH ×2 (09:40→21:48)
--- NOTE | 2019-06-30 10:33 | PN ---
Progress Note (short form) - Note Progress Note: Hospitalist Medicine states that he no longer has nausea. Has been having BM as well. No other complaint. Lives on own in a rented room, rest of family lives in [place] 06/30/19 06:38 Temperature 98.3 F Pulse Rate 70 Respiratory 23 H Rate Blood Pressure 161/73 Physical Exam GENERAL: The patient is resting in bed, in NAD NECK: supple LUNGS:CTA b/l, no accessory m usage HEART: Regular rate and rhythm, S1, S2 without murmur, rub or gallop. ABDOMEN: Soft, nontender, nondistended, normoactive bowel sounds EXTREMITIES: 2+ pt pulses, warm, well-perfused, no edema. PSYCH: Normal mood, normal affect. SKIN: Warm, dry Laboratory Tests 06/30/19 06/30/19 06/30/19 07:07 07:07 07:07 WBC 9.7 Hgb 10.3 L Hct 32.1 L Plt Count 95 L Sodium 142 Potassium 3.6 Chloride 109 H BUN 29.6 H Creatinine 2.7 H Random Glucose 85 Total Bilirubin 1.3 H Direct Bilirubin 0.5 H Alkaline Phosphatase 108 Total Protein 5.9 L Albumin 2.7 L Microbiology 06/28/19 08:46 Urine - Urine Clean Catch Urine Culture - Final NO GROWTH OBTAINED 06/28/19 13:10 Blood - Peripheral Venous Blood Culture - Preliminary NO GROWTH OBTAINED AFTER 24 HOURS, INCUBATION TO CONTINUE FOR 4 DAYS. 06/28/19 13:08 Blood - Peripheral Venous Blood Culture - Preliminary NO GROWTH OBTAINED AFTER 24 HOURS, INCUBATION TO CONTINUE FOR 4 DAYS. Imaging 06/28/19: CTAP: partial imaging of small R pleural effusion, multichamber cardiomegaly, s/p median sternotomy, colonoic diverticulosis, no evidence of acute diverticulitis. mild nonspecific L perirenal soft tissue stranding may be chronic in nature vs. acute such as a acute pyelo or acute interstitial nephritis. Assessment/Plan 83 yo M w/ PMH of systolic CHF, CAD s/p PCI 08 and CABG 07/08, CKD, Afib on low dose eliquis presents w/ nausea vomiting and LLQ abdominal pain. CT abdomen showing nonspecific left perirenal soft tissue stranding likely chronic in nature. UA negative and patient denies dysuria. Abdominal pain likely related to constipation vs possible viral infection with nausea and vomiting. Admitted for abdominal pain w/ lactic acidosis (likely due to dehydration) and n/v. # Abdominal pain w/ nausea and vomiting - possible 2/2 gastroenteritis, dehydration - will hold home med lasix and spironolactone - restart when fluid status improves ; still req IVF and still with bump in Cr - fluids w/ caution w/ hx of systolic CHF w/ recent exacerbation - c/w senna, colace, miralax - ucx, blood cx (-) thus far # YFN on CKD - f/u urine studies - Perinephric stranding non specific on imaging - avoid nephrotoxic meds - fluids w/ caution in setting of CHF . on 50 cc/hr of 1/2 NS - c/w gentle IVF and cont to trend. holding lasix as bump in Cr #Thrombocytopenia -f/u HIV, hep C testing # CAD, HTN, Afib and systolic CHF - diuretics held as above (lasix, spirinolactone) - c/w eliquis - c/w statin and BB - ARB held #F/E/N gentle IVF, with caution as CHF. 1/2 NS 50 cc/hr continue to follow lytes renal diet #PPX DVT: on eliquis #Dispo cont'd monitoring on med-surg awaiting improvement of renal fnc
[2019-06-30] MEDS: SODIUM CHLORIDE 1,000 ML IV SCH (14:24)
--- NOTE | 2019-06-30 16:16 | PN ---
Progress Note, Physician History of Present Illness: Pt seen and examined at bedside. He says that he feels better today. He denies shortness of breath. - Current Medication List Current Medications: Active Medications Acetaminophen (Tylenol Oral Solution -) 650 mg PO Q6H PRN PRN Reason: PAIN LEVEL 6-10 Apixaban (Eliquis -) 2.5 mg PO BID [facility] Last Admin: 06/30/19 09:32 Dose: 2.5 mg Atorvastatin Calcium (Lipitor -) 40 mg PO HS [facility] Last Admin: 06/29/19 21:40 Dose: 40 mg Carvedilol (Coreg -) 3.125 mg PO BID [facility] Last Admin: 06/30/19 09:40 Dose: 3.125 mg Docusate Sodium (Colace -) 100 mg PO DAILY [facility] Last Admin: 06/30/19 09:48 Dose: Not Given Hydralazine HCl (Apresoline -) 50 mg PO TID [facility] Last Admin: 06/30/19 14:23 Dose: 50 mg Isosorbide Mononitrate (Imdur -) 30 mg PO DAILY [facility] Last Admin: 06/30/19 09:32 Dose: 30 mg Ondansetron HCl (Zofran -) 4 mg PO Q6H PRN PRN Reason: NAUSEA Polyethylene Glycol (Miralax (For Daily Use) -) 17 gm PO DAILY [facility] Last Admin: 06/30/19 09:48 Dose: Not Given Senna (Senna -) 2 tab PO BID [facility] Last Admin: 06/30/19 09:47 Dose: Not Given - Objective Vital Signs: Vital Signs Temperature 98.1 F 06/30/19 13:59 Pulse Rate 70 06/30/19 13:59 Respiratory Rate 20 06/30/19 13:59 Blood Pressure 161/70 06/30/19 13:59 O2 Sat by Pulse Oximetry (%) 100 06/30/19 09:00 Constitutional: Yes: Calm Eyes: Yes: Conjunctiva Clear Cardiovascular: Yes: S1, S2 Respiratory: Yes: CTA Bilaterally Gastrointestinal: Yes: Soft Genitourinary: Yes: WNL Musculoskeletal: Yes: WNL Edema: No Neurological: Yes: Oriented Psychiatric: Yes: Oriented Labs: CBC, BMP 06/30/19 07:07 06/30/19 07:07 INR, PTT INR 1.14 (0.83-1.09) H 06/28/19 08:45 Assessment/Plan Current Medications Generic Name Dose Route Start Last Admin Trade Name Freq PRN Reason Stop Dose Admin Acetaminophen 650 mg 06/28/19 21:51 Tylenol Oral Solution - PO Q6H PRN PAIN LEVEL 6-10 Apixaban 2.5 mg 06/28/19 22:00 06/30/19 09:32 Eliquis - PO 2.5 mg BID [facility] Administration Atorvastatin Calcium 40 mg 06/28/19 22:00 06/29/19 21:40 Lipitor - PO 40 mg HS [facility] Administration Carvedilol 3.125 mg 06/29/19 22:00 06/30/19 09:40 Coreg - PO 3.125 mg BID [facility] Administration Docusate Sodium 100 mg 06/28/19 19:00 06/30/19 09:48 Colace - PO Not Given DAILY [facility] Hydralazine HCl 50 mg 06/28/19 22:00 06/30/19 14:23 Apresoline - PO 50 mg TID [facility] Administration Isosorbide Mononitrate 30 mg 06/29/19 10:00 06/30/19 09:32 Imdur - PO 30 mg DAILY [facility] Administration Ondansetron HCl 4 mg 06/28/19 18:57 Zofran - PO Q6H PRN NAUSEA Polyethylene Glycol 17 gm 06/28/19 19:00 06/30/19 09:48 Miralax (For Daily Use) - PO Not Given DAILY [facility] Senna 2 tab 06/29/19 22:00 06/30/19 09:47 Senna - PO Not Given BID [facility] IMPRESSION -CKD -ABDOMINAL PAIN -CAD s/p CABG -AFIB on eliquis -MILD ANEMIA -DM -PERINEPHRIC STRANDING -HEPATIC CYSTS PLAN - change fluids to 1/2 ns and decrease rate - repeat labs in am - avoid nsaids - pt has YFN on CKD
[2019-06-30] MEDS ORDERED: SODIUM CHLORIDE 0.45% 1,000 ML IV SCH (16:30)
[2019-06-30] MEDS: ATORVASTATIN CA 40 MG TABLET (FP) PO SCH (21:49)
[2019-07-01] MEDS: hydrALAZINE HCL 50 MG TABLET (FP) PO SCH ×3 (05:25→21:50)
[2019-07-01 07:29] LABS: BASO % 0.2 % (0-2.0); EOS % 0.4 % (0-4.5); HEMATOCRIT 31.9 % (35.4-49); HEMOGLOBIN 10.2 GM/dL (11.7-16.9); LYMPH % 7.7 % (8-40); MCH 25.6 pg (25.7-33.7); MEAN PLT VOLUME 8.8 fl (7.5-11.1); MONO % 9.9 % (3.8-10.2); NEUT % 81.8 % (42.8-82.8); PLATELET COUNT 114 K/MM3 (134-434); RBC 3.99 M/mm3 (4.00-5.60); RDW 17.8 % (11.9-15.9); WHITE BLOOD COUNT 6.6 K/mm3 (4.0-10.0)
[2019-07-01 07:58] LABS: ALBUMIN 2.6 g/dl (3.4-5.0); BILIRUBIN,TOTAL 0.9 mg/dL (0.2-1); BLOOD UREA NITROGEN 34.2 mg/dL (7-18); CALCIUM 8.3 mg/dL (8.5-10.1); CREATININE 2.6 mg/dL (0.55-1.3); MAGNESIUM 2.1 mg/dL (1.8-2.4); PHOSPHOROUS 2.9 mg/dL (2.5-4.9); POTASSIUM 3.4 mmol/L (3.5-5.1); TOT PROT 5.8 g/dl (6.4-8.2)
[2019-07-01] MEDS ORDERED: POTASSIUM CHLORIDE TABS 20 MEQ TABLET.ER (FP) PO ONE (08:15)
[2019-07-01] MEDS: ISOSORBIDE MONONITRATE 30 MG TAB.SR.24H (FP) PO SCH (09:22)
[2019-07-01] MEDS: APIXABAN 2.5 MG TABLET PO SCH ×2 (09:22→21:50)
[2019-07-01] MEDS: DOCUSATE SODIUM 100 MG CAPSULE (FP) PO SCH (09:22)
[2019-07-01] MEDS: POLYETHYLENE GLYCOL 3350 119 GM BTL PO SCH (09:23)
[2019-07-01] MEDS: CARVEDILOL 3.125 MG TABLET (FP) PO SCH ×2 (09:23→21:50)
[2019-07-01] MEDS: SENNOSIDES 8.6MG TABLET (FP) PO SCH ×2 (09:23→21:51)
--- NOTE | 2019-07-01 12:08 | PN ---
Progress Note (short form) - Note Progress Note: Hospitalist Medicine C/o pain in R foot with mild edema. otherwise without complaint, in good spirits Vitals 07/01/19 09:16 Temperature 98.8 F Pulse Rate 76 Respiratory 18 Rate Blood Pressure 178/99 H Physical Exam GENERAL: The patient is resting in bed, in NAD NECK: supple LUNGS:CTA b/l, no accessory m usage HEART: Regular rate and rhythm, S1, S2 without murmur, rub or gallop. ABDOMEN: Soft, nontender, nondistended, normoactive bowel sounds EXTREMITIES: 2+ pt pulses, warm, well-perfused, +mild edema R ankle. diffusely TTP PSYCH: Normal mood, normal affect. SKIN: Warm, dry Laboratory Tests 07/01/19 07/01/19 06:47 06:47 WBC 6.6 Hgb 10.2 L Hct 31.9 L RDW 17.8 H Plt Count 114 L Sodium 140 Potassium 3.4 L Chloride 110 H Carbon Dioxide 19 L BUN 34.2 H Creatinine 2.6 H Calcium 8.3 L Microbiology 06/28/19 08:46 Urine - Urine Clean Catch Urine Culture - Final NO GROWTH OBTAINED 06/28/19 13:10 Blood - Peripheral Venous Blood Culture - Preliminary NO GROWTH OBTAINED AFTER 48 HOURS, INCUBATION TO CONTINUE FOR 3 DAYS. 06/28/19 13:08 Blood - Peripheral Venous Blood Culture - Preliminary NO GROWTH OBTAINED AFTER 48 HOURS, INCUBATION TO CONTINUE FOR 3 DAYS. Imaging 06/28/19: CTAP: partial imaging of small R pleural effusion, multichamber cardiomegaly, s/p median sternotomy, colonoic diverticulosis, no evidence of acute diverticulitis. mild nonspecific L perirenal soft tissue stranding may be chronic in nature vs. acute such as a acute pyelo or acute interstitial nephritis. Assessment/Plan 83 yo M w/ PMH of systolic CHF, CAD s/p PCI 08 and CABG 07/08, CKD, Afib on low dose eliquis presents w/ nausea vomiting and LLQ abdominal pain. CT abdomen showing nonspecific left perirenal soft tissue stranding likely chronic in nature. UA negative and patient denies dysuria. Abdominal pain likely related to constipation vs possible viral infection with nausea and vomiting. Admitted for abdominal pain w/ lactic acidosis (likely due to dehydration) and n/v. # Abdominal pain w/ nausea and vomiting - possible 2/2 gastroenteritis, dehydration - will hold home med lasix and spironolactone - restart when fluid status improves ; still req IVF and still with bump in Cr - fluids w/ caution w/ hx of systolic CHF w/ recent exacerbation - c/w senna, colace, miralax - ucx, blood cx (-) thus far # YFN on CKD - Perinephric stranding non specific on imaging - avoid nephrotoxic meds - improving - fluids w/ caution in setting of CHF . on 50 cc/hr of /2 NS - c/w gentle IVF and cont to trend. holding lasix as bump in Cr #Thrombocytopenia -f/u hep C testing -HIV (-) # CAD, HTN, Afib and systolic CHF - diuretics held as above (lasix, spirinolactone) - c/w eliquis - c/w statin and BB - ARB held #F/E/N gentle IVF, with caution as CHF. 1/2 NS 50 cc/hr continue to follow lytes renal diet #PPX DVT: on eliquis #Dispo cont'd monitoring on med-surg awaiting improvement of renal fnc
--- NOTE | 2019-07-01 18:47 | PN ---
Progress Note, Physician History of Present Illness: Pt seen and examined at bedside. He is awake and appears more comfortable. - Current Medication List Current Medications: Active Medications Acetaminophen (Tylenol Oral Solution -) 650 mg PO Q6H PRN PRN Reason: PAIN LEVEL 6-10 Apixaban (Eliquis -) 2.5 mg PO BID [facility] Last Admin: 07/01/19 09:22 Dose: 2.5 mg Atorvastatin Calcium (Lipitor -) 40 mg PO HS [facility] Last Admin: 06/30/19 21:49 Dose: 40 mg Carvedilol (Coreg -) 3.125 mg PO BID [facility] Last Admin: 07/01/19 09:23 Dose: 3.125 mg Docusate Sodium (Colace -) 100 mg PO DAILY [facility] Last Admin: 07/01/19 09:22 Dose: 100 mg Hydralazine HCl (Apresoline -) 50 mg PO TID [facility] Last Admin: 07/01/19 14:00 Dose: 50 mg Isosorbide Mononitrate (Imdur -) 30 mg PO DAILY [facility] Last Admin: 07/01/19 09:22 Dose: 30 mg Ondansetron HCl (Zofran -) 4 mg PO Q6H PRN PRN Reason: NAUSEA Polyethylene Glycol (Miralax (For Daily Use) -) 17 gm PO DAILY [facility] Last Admin: 07/01/19 09:23 Dose: Not Given Senna (Senna -) 2 tab PO BID [facility] Last Admin: 07/01/19 09:23 Dose: Not Given - Objective Vital Signs: Vital Signs Temperature 98.5 F 07/01/19 13:39 Pulse Rate 58 L 07/01/19 13:39 Respiratory Rate 18 07/01/19 13:39 Blood Pressure 151/66 07/01/19 13:39 O2 Sat by Pulse Oximetry (%) 99 07/01/19 09:00 Constitutional: Yes: Calm Eyes: Yes: Conjunctiva Clear HENT: Yes: Atraumatic Cardiovascular: Yes: S1, S2 Respiratory: Yes: CTA Bilaterally Gastrointestinal: Yes: Soft Genitourinary: Yes: WNL Musculoskeletal: Yes: WNL Edema: No Neurological: Yes: Oriented Labs: CBC, BMP 07/01/19 06:47 07/01/19 06:47 INR, PTT INR 1.14 (0.83-1.09) H 06/28/19 08:45 Assessment/Plan Current Medications Generic Name Dose Route Start Last Admin Trade Name Freq PRN Reason Stop Dose Admin Acetaminophen 650 mg 06/28/19 21:51 Tylenol Oral Solution - PO Q6H PRN PAIN LEVEL 6-10 Apixaban 2.5 mg 06/28/19 22:00 07/01/19 09:22 Eliquis - PO 2.5 mg BID [facility] Administration Atorvastatin Calcium 40 mg 06/28/19 22:00 06/30/19 21:49 Lipitor - PO 40 mg HS [facility] Administration Carvedilol 3.125 mg 06/29/19 22:00 07/01/19 09:23 Coreg - PO 3.125 mg BID [facility] Administration Docusate Sodium 100 mg 06/28/19 19:00 07/01/19 09:22 Colace - PO 100 mg DAILY [facility] Administration Hydralazine HCl 50 mg 06/28/19 22:00 07/01/19 14:00 Apresoline - PO 50 mg TID [facility] Administration Isosorbide Mononitrate 30 mg 06/29/19 10:00 07/01/19 09:22 Imdur - PO 30 mg DAILY [facility] Administration Ondansetron HCl 4 mg 06/28/19 18:57 Zofran - PO Q6H PRN NAUSEA Polyethylene Glycol 17 gm 06/28/19 19:00 07/01/19 09:23 Miralax (For Daily Use) - PO Not Given DAILY [facility] Senna 2 tab 06/29/19 22:00 07/01/19 09:23 Senna - PO Not Given BID [facility] IMPRESSION -CKD -ABDOMINAL PAIN -CAD s/p CABG -AFIB on eliquis -MILD ANEMIA -DM -PERINEPHRIC STRANDING -HEPATIC CYSTS PLAN - repeat labs in am - monitor renal function - monitor off of fluids - follow renal ultrasound - diuretics on hold - avoid nsaids - pt has YFN on CKD
[2019-07-01] MEDS: ACETAMINOPHEN 650 MG/20.3 ML ORAL SOLUTION (CUPS) PO PRN (19:25)
[2019-07-01] MEDS: ATORVASTATIN CA 40 MG TABLET (FP) PO SCH (21:50)
[2019-07-02] MEDS: hydrALAZINE HCL 50 MG TABLET (FP) PO SCH ×3 (05:59→21:27)
[2019-07-02 08:18] LABS: BASO % 0.5 % (0-2.0); EOS % 1.5 % (0-4.5); HEMATOCRIT 29.6 % (35.4-49); HEMOGLOBIN 9.7 GM/dL (11.7-16.9); LYMPH % 17.3 % (8-40); MCH 26.2 pg (25.7-33.7); MCHC 32.7 g/dl (32.0-35.9); MEAN CELL VOLUME 80.2 fl (80-96); MEAN PLT VOLUME 8.6 fl (7.5-11.1); MONO % 11.3 % (3.8-10.2); NEUT % 69.4 % (42.8-82.8); PLATELET COUNT 115 K/MM3 (134-434); RBC 3.69 M/mm3 (4.00-5.60); RDW 17.4 % (11.9-15.9); WHITE BLOOD COUNT 4.5 K/mm3 (4.0-10.0)
[2019-07-02 09:03] LABS: BLOOD UREA NITROGEN 35.5 mg/dL (7-18); CREATININE 2.7 mg/dL (0.55-1.3); MAGNESIUM 2.2 mg/dL (1.8-2.4); PHOSPHOROUS 3.2 mg/dL (2.5-4.9); POTASSIUM 3.4 mmol/L (3.5-5.1)
[2019-07-02] MEDS ORDERED: PT OWN MED DRAWER 7, Y5N ONE (09:15)
[2019-07-02] MEDS: ISOSORBIDE MONONITRATE 30 MG TAB.SR.24H (FP) PO SCH (09:34)
[2019-07-02] MEDS: APIXABAN 2.5 MG TABLET PO SCH ×2 (09:34→21:27)
[2019-07-02] MEDS: DOCUSATE SODIUM 100 MG CAPSULE (FP) PO SCH (09:34)
[2019-07-02] MEDS: CARVEDILOL 3.125 MG TABLET (FP) PO SCH ×2 (09:34→21:27)
[2019-07-02] MEDS: SENNOSIDES 8.6MG TABLET (FP) PO SCH ×3 (09:34→21:27)
[2019-07-02] MEDS: POLYETHYLENE GLYCOL 3350 119 GM BTL PO SCH (09:34)
[2019-07-02] MEDS ORDERED: POTASSIUM CHLORIDE TABS 20 MEQ TABLET.ER (FP) PO ONE (09:51)
[2019-07-02] MEDS ORDERED: SODIUM CHLORIDE 0.45% 1,000 ML IV SCH ×2 (11:15→11:26)
--- NOTE | 2019-07-02 11:25 | PN ---
Progress Note (short form) - Note Progress Note: Hospitalist Medicine Improved pain in R foot , still w/ mild edema. otherwise without complaint Vitals 07/02/19 06:27 Temperature 98.7 F Pulse Rate 50 L Respiratory 18 Rate Blood Pressure 112/54 L Physical Exam GENERAL: The patient is resting in bed, in NAD NECK: supple LUNGS:CTA b/l, no accessory m usage HEART: Regular rate and rhythm, S1, S2 without murmur, rub or gallop. ABDOMEN: Soft, nontender, nondistended, normoactive bowel sounds EXTREMITIES: 2+ pt pulses, warm, well-perfused, +mild edema R ankle. preserved ROM PSYCH: Normal mood, normal affect. SKIN: Warm, dry Laboratory Tests 07/02/19 07/02/19 07:57 07:57 WBC 4.5 Hgb 9.7 L Hct 29.6 L Plt Count 115 L Sodium 140 Potassium 3.4 L Chloride 111 H Carbon Dioxide 22 Anion Gap 8 BUN 35.5 H Creatinine 2.7 H Random Glucose 85 Microbiology 06/28/19 08:46 Urine - Urine Clean Catch Urine Culture - Final NO GROWTH OBTAINED 06/28/19 13:10 Blood - Peripheral Venous Blood Culture - Preliminary NO GROWTH OBTAINED AFTER 48 HOURS, INCUBATION TO CONTINUE FOR 3 DAYS. 06/28/19 13:08 Blood - Peripheral Venous Blood Culture - Preliminary NO GROWTH OBTAINED AFTER 48 HOURS, INCUBATION TO CONTINUE FOR 3 DAYS. Imaging 06/28/19: CTAP: partial imaging of small R pleural effusion, multichamber cardiomegaly, s/p median sternotomy, colonoic diverticulosis, no evidence of acute diverticulitis. mild nonspecific L perirenal soft tissue stranding may be chronic in nature vs. acute such as an acute pyelo or acute interstitial nephritis. 07/01: Renal sono: moderately atrophic kidneys with possible L upper lobe pole mass 2.6x 2.1x 2.2cm Assessment/Plan 83 yo M w/ PMH of systolic CHF, CAD s/p PCI 08 and CABG 07/08, CKD, Afib on low dose eliquis presents w/ nausea vomiting and LLQ abdominal pain. CT abdomen showing nonspecific left perirenal soft tissue stranding likely chronic in nature. UA negative and patient denies dysuria. Abdominal pain likely related to constipation vs possible viral infection with nausea and vomiting. Admitted for abdominal pain w/ lactic acidosis (likely due to dehydration) and n/v. # Abdominal pain w/ nausea and vomiting - possible 2/2 gastroenteritis, dehydration - will hold home med lasix and spironolactone - restart when fluid status improves ; still req IVF and still with bump in Cr - fluids w/ caution w/ hx of systolic CHF w/ recent exacerbation - c/w senna, colace, miralax - ucx, blood cx (-) thus far # YNF on CKD - Perinephric stranding non specific on imaging - avoid nephrotoxic meds - fluids w/ caution in setting of CHF . on 75 cc/hr of 1/2 NS - restarted gentle IVF and cont to trend. holding lasix as bump in Cr #?L upper pole renal mass -unable to do CT w/ contrast, had recent CTAP -will f/u MRI #Thrombocytopenia -f/u hep C testing -HIV (-) # CAD, HTN, Afib and systolic CHF - diuretics held as above (lasix, spirinolactone) - c/w eliquis - c/w statin and BB - ARB held #F/E/N gentle IVF, with caution as CHF. 1/2 NS 75 cc/hr continue to follow lytes renal diet #PPX DVT: on eliquis #Dispo cont'd monitoring on med-surg awaiting improvement of renal fnc <Sharon Belcher - Last Filed: 07/02/19 17:10> - Note Progress Note: Resume home torsemide when OK with nephro if this is baseline renal function. Plan to DC tomorrow; obtaining inpatient MRI <Regis Baron - Last Filed: 07/03/19 13:33>
--- NOTE | 2019-07-02 17:12 | PN ---
Progress Note, Physician History of Present Illness: Pt seen and examined at bedside. He is awake and alert. He denies shortness of breath. - Current Medication List Current Medications: Active Medications Acetaminophen (Tylenol Oral Solution -) 650 mg PO Q6H PRN PRN Reason: PAIN LEVEL 6-10 Last Admin: 07/01/19 19:25 Dose: 650 mg Apixaban (Eliquis -) 2.5 mg PO BID [facility] Last Admin: 07/02/19 09:34 Dose: 2.5 mg Atorvastatin Calcium (Lipitor -) 40 mg PO HS [facility] Last Admin: 07/01/19 21:50 Dose: 40 mg Carvedilol (Coreg -) 3.125 mg PO BID [facility] Last Admin: 07/02/19 09:34 Dose: 3.125 mg Docusate Sodium (Colace -) 100 mg PO DAILY [facility] Last Admin: 07/02/19 09:34 Dose: 100 mg Hydralazine HCl (Apresoline -) 50 mg PO TID [facility] Last Admin: 07/02/19 13:35 Dose: 50 mg Sodium Chloride (1/2 Normal Saline) 1,000 mls @ 75 mls/hr IV ASDIR [facility] Stop: 07/03/19 11:13 Last Admin: 07/02/19 11:32 Dose: 75 mls/hr Isosorbide Mononitrate (Imdur -) 30 mg PO DAILY [facility] Last Admin: 07/02/19 09:34 Dose: 30 mg Ondansetron HCl (Zofran -) 4 mg PO Q6H PRN PRN Reason: NAUSEA Polyethylene Glycol (Miralax (For Daily Use) -) 17 gm PO DAILY [facility] Last Admin: 07/02/19 09:34 Dose: Not Given Senna (Senna -) 2 tab PO BID [facility] Last Admin: 07/02/19 09:37 Dose: Not Given - Objective Vital Signs: Vital Signs Temperature 97.4 F L 07/02/19 13:49 Pulse Rate 58 L 07/02/19 13:49 Respiratory Rate 20 07/02/19 13:49 Blood Pressure 164/77 07/02/19 13:49 O2 Sat by Pulse Oximetry (%) 96 07/02/19 09:00 Constitutional: Yes: Calm Eyes: Yes: Conjunctiva Clear HENT: Yes: Atraumatic Neck: Yes: Supple Cardiovascular: Yes: S1, S2 Respiratory: Yes: CTA Bilaterally Gastrointestinal: Yes: Soft Musculoskeletal: Yes: WNL Edema: No Neurological: Yes: Oriented Labs: CBC, BMP 07/02/19 07:57 07/02/19 07:57 INR, PTT INR 1.14 (0.83-1.09) H 06/28/19 08:45 Assessment/Plan Current Medications Generic Name Dose Route Start Last Admin Trade Name Freq PRN Reason Stop Dose Admin Acetaminophen 650 mg 06/28/19 21:51 07/01/19 19:25 Tylenol Oral Solution - PO 650 mg Q6H PRN Administration PAIN LEVEL 6-10 Apixaban 2.5 mg 06/28/19 22:00 07/02/19 09:34 Eliquis - PO 2.5 mg BID [facility] Administration Atorvastatin Calcium 40 mg 06/28/19 22:00 07/01/19 21:50 Lipitor - PO 40 mg HS [facility] Administration Carvedilol 3.125 mg 06/29/19 22:00 07/02/19 09:34 Coreg - PO 3.125 mg BID [facility] Administration Docusate Sodium 100 mg 06/28/19 19:00 07/02/19 09:34 Colace - PO 100 mg DAILY [facility] Administration Hydralazine HCl 50 mg 06/28/19 22:00 07/02/19 13:35 Apresoline - PO 50 mg TID [facility] Administration Sodium Chloride 1,000 mls @ 75 mls/hr 07/02/19 11:26 07/02/19 11:32 1/2 Normal Saline IV 07/03/19 11:13 75 mls/hr ASDIR [facility] Administration Isosorbide Mononitrate 30 mg 06/29/19 10:00 07/02/19 09:34 Imdur - PO 30 mg DAILY [facility] Administration Ondansetron HCl 4 mg 06/28/19 18:57 Zofran - PO Q6H PRN NAUSEA Polyethylene Glycol 17 gm 06/28/19 19:00 07/02/19 09:34 Miralax (For Daily Use) - PO Not Given DAILY [facility] Senna 2 tab 06/29/19 22:00 07/02/19 09:37 Senna - PO Not Given BID [facility] IMPRESSION -CKD -ABDOMINAL PAIN -CAD s/p CABG -AFIB on eliquis -MILD ANEMIA -DM -PERINEPHRIC STRANDING -HEPATIC CYSTS PLAN - renal function is not improved - atrophic kidneys on ultrasound - can observe off of fluids - likely progression of ckd - avoid nsaids - pt has YFN on CKD
[2019-07-02] MEDS: ATORVASTATIN CA 40 MG TABLET (FP) PO SCH (21:27)
[2019-07-03] MEDS: hydrALAZINE HCL 50 MG TABLET (FP) PO SCH ×3 (05:53→21:15)
[2019-07-03 07:32] LABS: BASO % 0.7 % (0-2.0); EOS % 2.4 % (0-4.5); HEMATOCRIT 29.5 % (35.4-49); HEMOGLOBIN 9.6 GM/dL (11.7-16.9); LYMPH % 17.6 % (8-40); MCH 25.8 pg (25.7-33.7); MCHC 32.4 g/dl (32.0-35.9); MEAN CELL VOLUME 79.6 fl (80-96); MEAN PLT VOLUME 8.6 fl (7.5-11.1); MONO % 12.8 % (3.8-10.2); NEUT % 66.5 % (42.8-82.8); PLATELET COUNT 132 K/MM3 (134-434); RDW 17.2 % (11.9-15.9); WHITE BLOOD COUNT 3.8 K/mm3 (4.0-10.0)
[2019-07-03 08:06] LABS: ALBUMIN 2.7 g/dl (3.4-5.0); BILIRUBIN,TOTAL 0.7 mg/dL (0.2-1); BLOOD UREA NITROGEN 39.2 mg/dL (7-18); CALCIUM 8.1 mg/dL (8.5-10.1); CREATININE 2.5 mg/dL (0.55-1.3); MAGNESIUM 2.2 mg/dL (1.8-2.4); PHOSPHOROUS 3.5 mg/dL (2.5-4.9); POTASSIUM 3.7 mmol/L (3.5-5.1); TOT PROT 5.7 g/dl (6.4-8.2)
[2019-07-03] MEDS ORDERED: PT OWN MED DRAWER 7, Y5N ONE ×2 (08:42→20:05)
[2019-07-03] MEDS: POLYETHYLENE GLYCOL 3350 119 GM BTL PO SCH (09:04)
[2019-07-03] MEDS: DOCUSATE SODIUM 100 MG CAPSULE (FP) PO SCH (09:04)
[2019-07-03] MEDS: SENNOSIDES 8.6MG TABLET (FP) PO SCH ×2 (09:04→21:17)
[2019-07-03] MEDS: APIXABAN 2.5 MG TABLET PO SCH ×2 (09:10→21:15)
[2019-07-03] MEDS: ISOSORBIDE MONONITRATE 30 MG TAB.SR.24H (FP) PO SCH (09:10)
[2019-07-03] MEDS: CARVEDILOL 3.125 MG TABLET (FP) PO SCH ×2 (09:11→21:16)
--- NOTE | 2019-07-03 12:48 | PN ---
Progress Note (short form) - Note Progress Note: Hospitalist Medicine Resting in bed, improved pain in R foot. Awaiting result of abdomen MRI, d/w rads Vitals 07/03/19 06:06 Temperature 98.1 F Pulse Rate 59 L Respiratory 18 Rate Blood Pressure 153/78
[2019-07-03] MEDS ORDERED: FUROSEMIDE 40 MG TABLET (FP) PO ONE (13:54)
[2019-07-03] MEDS: ACETAMINOPHEN 650 MG/20.3 ML ORAL SOLUTION (CUPS) PO PRN (14:17)
--- NOTE | 2019-07-03 16:04 | PN ---
Progress Note, Physician History of Present Illness: Pt seen and examined at bedside. He is awake and appears comfortable. - Current Medication List Current Medications: Active Medications Acetaminophen (Tylenol Oral Solution -) 650 mg PO Q6H PRN PRN Reason: PAIN LEVEL 6-10 Last Admin: 07/03/19 14:17 Dose: 650 mg Apixaban (Eliquis -) 2.5 mg PO BID [facility] Last Admin: 07/03/19 09:10 Dose: 2.5 mg Atorvastatin Calcium (Lipitor -) 40 mg PO HS [facility] Last Admin: 07/02/19 21:27 Dose: 40 mg Carvedilol (Coreg -) 3.125 mg PO BID [facility] Last Admin: 07/03/19 09:11 Dose: 3.125 mg Docusate Sodium (Colace -) 100 mg PO DAILY [facility] Last Admin: 07/03/19 09:04 Dose: Not Given Hydralazine HCl (Apresoline -) 50 mg PO TID [facility] Last Admin: 07/03/19 13:08 Dose: 50 mg Isosorbide Mononitrate (Imdur -) 30 mg PO DAILY [facility] Last Admin: 07/03/19 09:10 Dose: 30 mg Ondansetron HCl (Zofran -) 4 mg PO Q6H PRN PRN Reason: NAUSEA Polyethylene Glycol (Miralax (For Daily Use) -) 17 gm PO DAILY [facility] Last Admin: 07/03/19 09:04 Dose: Not Given Senna (Senna -) 2 tab PO BID [facility] Last Admin: 07/03/19 09:04 Dose: Not Given - Objective Vital Signs: Vital Signs Temperature 97.7 F 07/03/19 13:47 Pulse Rate 58 L 07/03/19 13:47 Respiratory Rate 18 07/03/19 13:47 Blood Pressure 163/82 07/03/19 13:47 O2 Sat by Pulse Oximetry (%) 97 07/03/19 09:00 Constitutional: Yes: Calm Eyes: Yes: Conjunctiva Clear HENT: Yes: Atraumatic Neck: Yes: Supple Cardiovascular: Yes: S1, S2 Respiratory: Yes: CTA Bilaterally Gastrointestinal: Yes: Soft Genitourinary: Yes: WNL Musculoskeletal: Yes: WNL Edema: No Neurological: Yes: Oriented Psychiatric: Yes: Oriented Labs: CBC, BMP 07/03/19 06:50 07/03/19 06:50 INR, PTT INR 1.14 (0.83-1.09) H 06/28/19 08:45 Assessment/Plan Current Medications Generic Name Dose Route Start Last Admin Trade Name Manjinder PRN Reason Stop Dose Admin Acetaminophen 650 mg 06/28/19 21:51 07/03/19 14:17 Tylenol Oral Solution - PO 650 mg Q6H PRN Administration PAIN LEVEL 6-10 Apixaban 2.5 mg 06/28/19 22:00 07/03/19 09:10 Eliquis - PO 2.5 mg BID [facility] Administration Atorvastatin Calcium 40 mg 06/28/19 22:00 07/02/19 21:27 Lipitor - PO 40 mg HS [facility] Administration Carvedilol 3.125 mg 06/29/19 22:00 07/03/19 09:11 Coreg - PO 3.125 mg BID [facility] Administration Docusate Sodium 100 mg 06/28/19 19:00 07/03/19 09:04 Colace - PO Not Given DAILY [facility] Hydralazine HCl 50 mg 06/28/19 22:00 07/03/19 13:08 Apresoline - PO 50 mg TID [facility] Administration Isosorbide Mononitrate 30 mg 06/29/19 10:00 07/03/19 09:10 Imdur - PO 30 mg DAILY [facility] Administration Ondansetron HCl 4 mg 06/28/19 18:57 Zofran - PO Q6H PRN NAUSEA Polyethylene Glycol 17 gm 06/28/19 19:00 07/03/19 09:04 Miralax (For Daily Use) - PO Not Given DAILY [facility] Senna 2 tab 06/29/19 22:00 07/03/19 09:04 Senna - PO Not Given BID [facility] IMPRESSION -CKD -ABDOMINAL PAIN -CAD s/p CABG -AFIB on eliquis -MILD ANEMIA -DM -PERINEPHRIC STRANDING -HEPATIC CYSTS PLAN - will need outpt follow up - stable off of fluids - can resume home meds - atrophic kidneys on ultrasound - likely progression of ckd - avoid nsaids
--- NOTE | 2019-07-03 18:23 | PN ---
Progress Note (short form) - Note Progress Note: Hospitalist Medicine C/o today of pain in L foot, however R foot pain has improved. Medicated with Tylenol. Was to go home, but now for ankle XR b/l. Will need increased ambulation prior. Lives at home, in a rented room. Vitals 07/03/19 13:47 Temperature 97.7 F Pulse Rate 58 L Respiratory 18 Rate Blood Pressure 163/82 Physical Exam GENERAL: The patient is resting in bed, in NAD NECK: supple LUNGS:CTA b/l, no accessory m usage HEART: Regular rate and rhythm, S1, S2 without murmur, rub or gallop. ABDOMEN: Soft, nontender, nondistended, normoactive bowel sounds EXTREMITIES: 2+ pt pulses, warm, well-perfused, +mild edema R ankle. preserved ROM PSYCH: Normal mood, normal affect. SKIN: Warm, dry Laboratory Tests 07/03/19 07/03/19 06:50 06:50 WBC 3.8 L Hgb 9.6 L Hct 29.5 L Plt Count 132 L Sodium 141 Potassium 3.7 Chloride 112 H BUN 39.2 H Creatinine 2.5 H Est GFR (CKD-EPI)AfAm 26.15 Est GFR (CKD-EPI)NonAf 22.57 Random Glucose 91 Calcium 8.1 L Alkaline Phosphatase 123 H Total Protein 5.7 L Albumin 2.7 L Microbiology 06/28/19 08:46 Urine - Urine Clean Catch Urine Culture - Final NO GROWTH OBTAINED 06/28/19 13:10 Blood - Peripheral Venous Blood Culture - Preliminary NO GROWTH OBTAINED AFTER 48 HOURS, INCUBATION TO CONTINUE FOR 3 DAYS. 06/28/19 13:08 Blood - Peripheral Venous Blood Culture - Preliminary NO GROWTH OBTAINED AFTER 48 HOURS, INCUBATION TO CONTINUE FOR 3 DAYS. Imaging 06/28/19: CTAP: partial imaging of small R pleural effusion, multichamber cardiomegaly, s/p median sternotomy, colonoic diverticulosis, no evidence of acute diverticulitis. mild nonspecific L perirenal soft tissue stranding may be chronic in nature vs. acute such as an acute pyelo or acute interstitial nephritis. 07/01: Renal sono: moderately atrophic kidneys with possible L upper lobe pole mass 2.6x 2.1x 2.2cm 07/02 Abdomen MRI: subtle 2.5cm L renal upper pole cortical solid lesion ventrally. similar sized possible L renal upper pole cortical lesion described previously. limitations of exam. repeat kidney sono suggested, with attention to upper pole of left kidney. mild bilateral perirenal soft tissue stranding is noted L>R which may be chronic or cute. possible ?acute pyelo or acute nephritis. Assessment/Plan 83 yo M w/ PMH of systolic CHF, CAD s/p PCI 08 and CABG 07/08, CKD, Afib on low dose eliquis presents w/ nausea vomiting and LLQ abdominal pain. CT abdomen showing nonspecific left perirenal soft tissue stranding likely chronic in nature. UA negative and patient denies dysuria. Abdominal pain likely related to constipation vs possible viral infection with nausea and vomiting. Admitted for abdominal pain w/ lactic acidosis (likely due to dehydration) and n/v. # Abdominal pain w/ nausea and vomiting - possible 2/2 gastroenteritis, dehydration - restarted home meds: lasix and spironolactone - c/w senna, colace, miralax - ucx, blood cx (-) thus far # YFN on CKD - Perinephric stranding non specific on imaging - avoid nephrotoxic meds - fluids w/ caution in setting of CHF . on 75 cc/hr of 1/2 NS - restarted gentle IVF and cont to trend. holding lasix as bump in Cr #?L upper pole renal mass -unable to do CT w/ contrast, had recent CTAP -MRI report unequivocal, f/u repeat kidney sono (w focus on L upper pole) #L foot and ankle pain -likely 2/2 bruising, sprain -f/u ankle XR (L and R foot) #Thrombocytopenia -f/u hep C testing -HIV (-) # CAD, HTN, Afib and systolic CHF - restarted lasix, aldactone. - c/w eliquis - c/w statin and BB - ARB held #F/E/N monitoring off IVF continue to follow lytes renal diet #PPX DVT: on eliquis #Dispo cont'd monitoring on med-surg for R, L foot / ankle XR increased ambulation before d/c and repeat kidney sono to check L upper pole mass.
[2019-07-03] MEDS: ATORVASTATIN CA 40 MG TABLET (FP) PO SCH (21:15)
[2019-07-04] MEDS: hydrALAZINE HCL 50 MG TABLET (FP) PO SCH ×2 (05:59→13:14)
[2019-07-04 08:23] LABS: CALCIUM 8.4 mg/dL (8.5-10.1); CREATININE 2.6 mg/dL (0.55-1.3); MAGNESIUM 2.3 mg/dL (1.8-2.4); PHOSPHOROUS 3.7 mg/dL (2.5-4.9); POTASSIUM 3.8 mmol/L (3.5-5.1)
[2019-07-04] MEDS ORDERED: SPIRONOLACTONE 25 MG TABLET (FP) PO SCH (10:00)
[2019-07-04] MEDS ORDERED: FUROSEMIDE 40 MG TABLET (FP) PO SCH (10:00)
[2019-07-04] MEDS: CARVEDILOL 3.125 MG TABLET (FP) PO SCH (10:05)
[2019-07-04] MEDS: ISOSORBIDE MONONITRATE 30 MG TAB.SR.24H (FP) PO SCH (10:06)
[2019-07-04] MEDS: APIXABAN 2.5 MG TABLET PO SCH (10:06)
[2019-07-04] MEDS: SENNOSIDES 8.6MG TABLET (FP) PO SCH (10:07)
[2019-07-04] MEDS: DOCUSATE SODIUM 100 MG CAPSULE (FP) PO SCH (10:08)
[2019-07-04] MEDS: POLYETHYLENE GLYCOL 3350 119 GM BTL PO SCH (10:27)
[2019-07-04 13:46] VITALS: PULSE 60; TEMP 98.6
--- NOTE | 2019-07-04 16:34 | DS ---
Physical Exam: SUBJECTIVE: Patient seen and examined at bedside. States his b/l foot pain has improved. Ambulating with ease. NC oxygen not on person, at bedside. Breathing well OBJECTIVE: Vital Signs Period Temp Pulse Resp BP Sys/Ayala Pulse Ox Last 24 Hr 97.3 F-98.6 F 53-71 18-22 156-195/65-87 96-100 GENERAL: The patient is resting in bed, in NAD NECK: supple LUNGS:CTA b/l, no accessory m usage HEART: Regular rate and rhythm, S1, S2 without murmur, rub or gallop. ABDOMEN: Soft, nontender, nondistended, normoactive bowel sounds EXTREMITIES: 2+ pt pulses, warm, well-perfused, +mild edema R ankle. preserved ROM PSYCH: Normal mood, normal affect. SKIN: Warm, dry LABS Laboratory Results - last 24 hr 07/04/19 06:49 Sodium 144 Potassium 3.8 Chloride 113 H Carbon Dioxide 23 Anion Gap 8 BUN 38.0 H Creatinine 2.6 H Est GFR (CKD-EPI)AfAm 24.94 Est GFR (CKD-EPI)NonAf 21.52 Random Glucose 84 Calcium 8.4 L Phosphorus 3.7 Magnesium 2.3 06/28/19 06/29/19 06/30/19 08:45 06:35 07:07 WBC 5.2 7.8 9.7 Hgb 11.5 L 11.1 L 10.3 L Hct 36.3 34.3 L 32.1 L MCV Plt Count 129 L 117 L 95 L 07/01/19 07/02/19 07/03/19 06:47 07:57 06:50 WBC 6.6 4.5 3.8 L Hgb 10.2 L 9.7 L 9.6 L Hct 31.9 L 29.6 L 29.5 L MCV 80.0 Plt Count 114 L 115 L 132 L 06/28/19 08:45 PT with INR 13.50 H INR 1.14 H PTT (Actin FS) 30.0 06/30/19 06/30/19 07/01/19 07:07 07:07 06:47 Sodium 142 140 Potassium 3.6 3.4 L Chloride 109 H 110 H Carbon Dioxide 22 BUN 29.6 H 34.2 H Creatinine 2.7 H 2.6 H Calcium 8.5 8.3 L Alkaline Phosphatase 108 111 Total Protein 5.9 L 5.8 L Albumin 2.7 L 2.6 L 07/02/19 07/03/19 07/04/19 07:57 06:50 06:49 Sodium 140 141 144 Potassium 3.4 L 3.7 3.8 Chloride 111 H 112 H 113 H Carbon Dioxide BUN 35.5 H 39.2 H 38.0 H Creatinine 2.7 H 2.5 H 2.6 H Calcium 8.0 L 8.1 L 8.4 L Alkaline Phosphatase 123 H Total Protein 5.7 L Albumin 2.7 L 06/28/19 06/29/19 08:46 14:21 Urine Protein 3+ H Urine Glucose (UA) Negative Urine Ketones Negative Urine Blood Negative Urine Nitrite Negative Urine Bilirubin Negative Urine Urobilinogen 0.2 Ur Leukocyte Esterase Negative Urine WBC (Auto) 2 Urine RBC (Auto) 9.6 Urine Casts (Auto) 3 U Epithel Cells (Auto) 1.2 Urine Bacteria (Auto) 2.6 Ur Random Creatinine 110.0 U Random Total Protein 178.0 H Ur Random Sodium 102 06/30/19 06/30/19 11:55 11:55 HCV Quantitation Hcv not detected HCV RNA log copies/mL TNP HIV 1&2 Ag/Ab, 4th Gen Non reactive Microbiology 06/28/19 08:46 Urine - Urine Clean Catch Urine Culture - Final NO GROWTH OBTAINED 06/28/19 13:10 Blood - Peripheral Venous Blood Culture - Preliminary NO GROWTH OBTAINED AFTER 48 HOURS, INCUBATION TO CONTINUE FOR 3 DAYS. 06/28/19 13:08 Blood - Peripheral Venous Blood Culture - Preliminary NO GROWTH OBTAINED AFTER 48 HOURS, INCUBATION TO CONTINUE FOR 3 DAYS. Imaging 06/28/19: CTAP: partial imaging of small R pleural effusion, multichamber cardiomegaly, s/p median sternotomy, colonoic diverticulosis, no evidence of acute diverticulitis. mild nonspecific L perirenal soft tissue stranding may be chronic in nature vs. acute such as an acute pyelo or acute interstitial nephritis. 07/01: Renal sono: moderately atrophic kidneys with possible L upper lobe pole mass 2.6x 2.1x 2.2cm 07/02 Abdomen MRI: subtle 2.5cm L renal upper pole cortical solid lesion ventrally. similar sized possible L renal upper pole cortical lesion described previously. limitations of exam. repeat kidney sono suggested, with attention to upper pole of left kidney. mild bilateral perirenal soft tissue stranding is noted L>R which may be chronic or cute. possible ?acute pyelo or acute nephritis. 07/03 repeat renal sono (closer look at L upper pole of kidney): nonspecific solid nodule 2.5 x 2.3cm . hypoechoic cortical structure at the mid to upper pole level probably representing a nonspecific solid nodule and less likely a cyst with internal debris. 07/03/19: b/l foot and ankle xr: without acute abnormality. HOSPITAL COURSE: Date of Admission:06/28/19 Date of Discharge: 07/04/19 83 yo M w/ PMH of systolic CHF, CAD s/p PCI and CABG 07/08, CKD, Afib on low dose eliquis presents w/ nausea vomiting and LLQ abdominal pain. CT abdomen showing nonspecific left perirenal soft tissue stranding likely chronic in nature. UA negative and patient denies dysuria. Abdominal pain likely related to constipation vs possible viral infection with nausea and vomiting. Admitted for abdominal pain w/ lactic acidosis (likely due to dehydration) and n/v. # Abdominal pain w/ nausea and vomiting - possible 2/2 gastroenteritis, dehydration - restarted home meds: lasix and spironolactone - c/w senna, colace, miralax - ucx, blood cx (-) # YFN on CKD - Perinephric stranding non specific on imaging - avoid nephrotoxic meds - improved on IVF, 1/2 NS #?L upper pole renal mass -unable to do CT w/ contrast, had recent CTAP -MRI report unequivocal, f/u repeat kidney sono (w focus on L upper pole) -repeat sono with evidence of nonspecific solid nodule, see above -uro, nephro f/u given #L foot and ankle pain -likely 2/2 bruising, sprain -XR unremarkable. given ortho f/u if pain persists # CAD, HTN, Afib and systolic CHF - restarted lasix, aldactone. - c/w eliquis - c/w statin and BB - ARB held #F/E/N monitoring off IVF continue to follow lytes renal diet #PPX DVT: on eliquis Minutes to complete discharge: 45 Discharge Summary Problems reviewed: Yes Reason For Visit: ACUTE KIDNEY INJURY,ABD PAIN,LACTIC ACIDOSIS Current Active Problems YFN (acute kidney injury) (Acute) Abdominal pain (Acute) Lactic acidosis (Acute) Condition: Stable - Instructions Diet, Activity, Other Instructions: You were in the hospital because you had abdominal pain. This is possible that this was a stomach virus or your symptoms may have been related to your kidneys. While here, you had an MRI scan and two kidney ultrasounds done of your left kidney which revealed a small, nonspecific nodule. You will need to follow this up as an outpatient. You also were given gentle hydration via IV. While here, you had pain in your feet but this resolved and your X-rays of your feet/ankles were normal. You improved, and are being sent home. Medications -You are not being discharged on any new medications. -You may continue your home meds, including the bowel regimen of senna, colace and miralax. -You can use tylenol every 6 hours only as needed for the pain in your right ankle. It is likely that you may have unknowingly bruised or sprained it. Ice the affected area and be sure to elevate it, to help any swelling. Testing You will need to have a repeat basic metabolic panel (BMP) done to check your electrolytes and renal function this week. Imaging You may need to have follow up imaging done of your kidneys to follow the MRI and kidney ultrasound results from the hospital. This will be determined by your primary care doctor and your kidney doctor. You were found to have a 2.5x2.3cm nonspecific solid nodule on your left kidney. This will need monitoring as an outpatient. Follow up appointments Please follow up with the following doctors -Dr. Mcclelland, a primary care doctor - this upcoming week to establish care and discuss your visit. -Dr. Quiles, the kidney doctor (improvement specialist) who saw you in the hospital - please see in 1 week. -Dr. Nagel, a engineering technical specialist you have recently seen in order to manage your CHF and cardiac problems - 1 week -Dr. Martinez, an orthopedic doctor - for your foot pain -1 week -Dr. Zheng- a urologist to discuss your kidney nodule -1 week Referrals: Beltran Ayala MD [Staff Physician] - 07/07/19 Aamir Zheng MD [Staff Physician] - Hua Martinez MD [Staff Physician] - 1 Week Pritesh Nagel MD [Staff Physician] - 1 Week Kalli Quiles MD [Staff Physician] - 1 Week Disposition: HOME - Home Medications Comprehensive Discharge Medication List: Ambulatory Orders Atorvastatin Ca [Lipitor] 40 mg PO HS #30 tablet 06/04/17 Apixaban [Eliquis -] 2.5 mg PO BID #60 tab 11/30/17 Isosorbide Mononitrate [Imdur -] 30 mg PO DAILY #30 tab.sr.24h 11/30/17 Carvedilol [Coreg -] 3.125 mg PO DAILY #60 tablet 09/06/18 Furosemide [Lasix -] 40 mg PO DAILY 30 Days #30 tablet 09/06/18 Spironolactone [Aldactone -] 25 mg PO DAILY 30 Days #30 tablet 09/06/18 Valsartan [Diovan] 160 mg PO DAILY 30 Days #30 tablet 09/06/18 hydrALAZINE HCL [Apresoline -] 50 mg PO TID 30 Days #90 tablet 09/06/18 Acetaminophen Oral Solution [Tylenol Oral Solution -] 650 mg PO Q6H PRN #30 soln.oral 07/03/19 Docusate Sodium [Colace -] 100 mg PO DAILY 30 Days capsule 07/03/19 Polyethylene Glycol 3350 [Miralax 119 gm Btl -] 17 gm PO DAILY #1 bottle Sennosides [Senna -] 2 tab PO BID #60 tablet 07/03/19 This patient is new to me today: No Emergency Visit: No Critical Care patient: No - Discharge Referral Referred to [facility] No
[2019-07-04 17:31] VITALS: BP 144/78
--- NOTE | 2019-07-04 18:00 | PN ---
Progress Note, Physician History of Present Illness: Pt seen and examined at bedside. He is awake and appears comfortable. - Objective Vital Signs: Vital Signs Temperature 98.6 F 07/04/19 13:45 Pulse Rate 60 07/04/19 13:45 Respiratory Rate 20 07/04/19 15:00 Blood Pressure 144/78 07/04/19 15:00 O2 Sat by Pulse Oximetry (%) 98 07/04/19 12:20 Constitutional: Yes: Calm Eyes: Yes: Conjunctiva Clear HENT: Yes: Atraumatic Cardiovascular: Yes: S1, S2 Respiratory: Yes: CTA Bilaterally Gastrointestinal: Yes: Soft Genitourinary: Yes: WNL Musculoskeletal: Yes: WNL Edema: No Neurological: Yes: Oriented Labs: CBC, BMP 07/03/19 06:50 07/04/19 06:49 INR, PTT INR 1.14 (0.83-1.09) H 06/28/19 08:45 Assessment/Plan IMPRESSION -CKD -ABDOMINAL PAIN -CAD s/p CABG -AFIB on eliquis -MILD ANEMIA -DM -PERINEPHRIC STRANDING -HEPATIC CYSTS PLAN - renal nodule/mass will need follow up with urology - avoid nsaids - stable off of fluids - can resume home meds - likely progression of ckd
== END 2019-07-04 16:50 | disposition home or self-care (01) | DRG 683 ==
LOC: JER 07:52 → JERBED 14:10 → J7W 15:35
PROVIDERS: ADMIT Internal Medicine; ATTEND Internal Medicine
DX: N17.9 Acute kidney failure, unspecified (principal); I50.22 Chronic systolic (congestive) heart failure; E87.2 Acidosis; I13.0 Hypertensive heart and chronic kidney disease with heart failure and stage 1 through stage 4 chronic kidney disease, or unspecified chronic kidney disease; E86.0 Dehydration; R11.2 Nausea with vomiting, unspecified; K52.9 Noninfective gastroenteritis and colitis, unspecified; R10.9 Unspecified abdominal pain; I48.91 Unspecified atrial fibrillation; I25.10 Atherosclerotic heart disease of native coronary artery without angina pectoris; K76.89 Other specified diseases of liver; N18.9 Chronic kidney disease, unspecified; D69.6 Thrombocytopenia, unspecified; Z98.61 Coronary angioplasty status; Z95.1 Presence of aortocoronary bypass graft
CPT/HCPCS: 36415; 73610-TC-LT-FY; 73610-TC-RT-FY; 73630-TC-LT; 73630-TC-RT-FY; 74176-TC; 74181-TC; 76775-TC; 80048; 80053; 80076; 81003; 82565; 83605; 83690; 83735; 84100; 84156; 84300; 85025; 85610; 85730; 86850; 86900; 86901; 87040; 87086; 87389; 87522; 93005; 93010; 94761; 97116-GP; 97161-GP; 99284-25; J0131; J7030

== ENCOUNTER 2019-07-07 14:56 | Inpatient (IN) | payer OTHER ==
--- NOTE | 2019-07-07 15:08 | PDOC ---
Rapid Medical Evaluation Medical Evaluation: Allergies Allergy/AdvReac Type Severity Reaction Status Date / Time No Known Allergies Allergy Verified 07/07/19 14:59 07/07/19 15:03 This patient received a in-person evaluation in triage cc/HPI: shortness of breath, s/p discharge from hospital yesterday presents today for the same with dizziness and swelling of feet. Denies chest pain at presents PE: increase respirations, unlabored diminished breath sounds on the left bases bipedal edema, with desquamation of skin on legs orders: labs, chest xray and ekg ordered This patient will proceed to ED for further evaluation Discharge Disposition - Diagnosis Shortness of breath - Referrals - Patient Instructions - Post Discharge Activity
--- NOTE | 2019-07-07 15:30 | PDOC ---
History of Present Illness - General Chief Complaint: Shortness of Breath Stated Complaint: PAIN Time Seen by Provider: 07/07/19 15:08 History Source: Patient - History of Present Illness Initial Comments: 07/07/19 15:48 Mr. Pham is an 84 y/o man with hx recent admission for abdominal pain with CKD diagnosis (discharged 07/04/2019), afib on eliquis, CHF, CABG (2007, 2016), HTN , HLD, p/w acute onset shortness of breath that began yesterday night. He reports that starting yesterday approx 2100 he began to endorse acute onset shortness of breath while laying flat. He reports vision blurriness that began at approx the same time. He reports that his legs have become increasingly swollen since leaving the hospital. He reports that he has not taken his blood pressure medications since leaving the hospital. He reports ongoing shortness of breath that worsens while laying flat. He denies any chest pain, fevers. Past History - Past Medical History Allergies/Adverse Reactions: Allergies Allergy/AdvReac Type Severity Reaction Status Date / Time No Known Allergies Allergy Verified 07/07/19 14:59 Home Medications: Ambulatory Orders Atorvastatin Ca [Lipitor] 40 mg PO HS #30 tablet 06/04/17 Apixaban [Eliquis -] 2.5 mg PO BID #60 tab 11/30/17 Isosorbide Mononitrate [Imdur -] 30 mg PO DAILY #30 tab.sr.24h 11/30/17 Carvedilol [Coreg -] 3.125 mg PO DAILY #60 tablet 09/06/18 Furosemide [Lasix -] 40 mg PO DAILY 30 Days #30 tablet 09/06/18 Spironolactone [Aldactone -] 25 mg PO DAILY 30 Days #30 tablet 09/06/18 Valsartan [Diovan] 160 mg PO DAILY 30 Days #30 tablet 09/06/18 hydrALAZINE HCL [Apresoline -] 50 mg PO TID 30 Days #90 tablet 09/06/18 Acetaminophen Oral Solution [Tylenol Oral Solution -] 650 mg PO Q6H PRN #30 soln.oral 07/03/19 Docusate Sodium [Colace -] 100 mg PO DAILY 30 Days capsule 07/03/19 Polyethylene Glycol 3350 [Miralax 119 gm Btl -] 17 gm PO DAILY #1 bottle Sennosides [Senna -] 2 tab PO BID #60 tablet 07/03/19 Anemia: No Asthma: No Cancer: No Cardiac Disorders: Yes CVA: No COPD: No CHF: Yes Dementia: No Diabetes: No GI Disorders: No Disorders: No HTN: Yes Hypercholesterolemia: Yes Liver Disease: No Seizures: No Thyroid Disease: No - Surgical History Abdominal Surgery: No Appendectomy: No Cardiac Surgery: Yes (S/P CABG 06/2017) Cholecystectomy: No Lung Surgery: No Neurologic Surgery: No Orthopedic Surgery: No - Immunization History Immunization Up to Date: Yes - Psycho Social/Smoking Cessation Hx Smoking History: Never smoked Have you smoked in the past 12 months: No Information on smoking cessation initiated: No Hx Alcohol Use: No Drug/Substance Use Hx: No Substance Use Type: None Hx Substance Use Treatment: No Review of Systems - Review of Systems Able to Perform ROS?: Yes Comments:: 07/07/19 16:09 ROS: GENERAL/CONSTITUTIONAL: No fever or chills. No weakness. HEAD, EYES, EARS, NOSE AND THROAT: Vision blurring. No ear pain or discharge. No sore throat. CARDIOVASCULAR: Shortness of breath. No chest pain RESPIRATORY: Cough. No wheezing, or hemoptysis. GASTROINTESTINAL: No nausea, vomiting, diarrhea or constipation. GENITOURINARY: No dysuria, frequency, or change in urination. MUSCULOSKELETAL: Lower extremity swelling. No joint or muscle pain. No neck or back pain. SKIN: No rash NEUROLOGIC: No headache, vertigo, loss of consciousness, or change in strength/ sensation. ENDOCRINE: No increased thirst. No abnormal weight change HEMATOLOGIC/LYMPHATIC: No anemia, easy bleeding, or history of blood clots. ALLERGIC/IMMUNOLOGIC: No hives or skin allergy. *Physical Exam - Vital Signs Last Vital Signs Temp Pulse Resp BP Pulse Ox 97.3 F L 71 18 211/92 H 99 07/07/19 14:59 07/07/19 14:59 07/07/19 14:59 07/07/19 14:59 07/07/19 14:59 - Physical Exam 07/07/19 16:11 PE: GENERAL: Awake, alert, and fully oriented, sitting up in chair HEAD: No signs of trauma, normocephalic, atraumatic EYES: PERRLA, EOMI, sclera anicteric, conjunctiva clear ENT: Auricles normal inspection, hearing grossly normal, nares patent, oropharynx clear without exudates. Moist mucosa NECK: Normal ROM, supple, no lymphadenopathy, JVD, or masses LUNGS: No distress, speaks full sentences, clear to auscultation bilaterally HEART: Irregular rhythm, peripheral pulses normal and equal bilaterally. ABDOMEN: Soft, nontender, normoactive bowel sounds. No guarding, no rebound. No masses EXTREMITIES : Bilateral 1+ pitting edema. Normal range of motion. No clubbing or cyanosis NEUROLOGICAL: Cranial nerves II through XII grossly intact. Normal speech, normal gait, no focal sensorimotor deficits SKIN: Warm, Dry, normal turgor, no rashes or lesions noted Heart Score/ECG Review - History History: Moderately suspicious - Electrocardiogram EKG: Non specific repolarization disturbance - Age Age: >/= 65 - Risk Factors Risk Factors Heart Score: Yes Hx Hypercholesterolemia, Yes Hx Hypertension, Yes Hx Diabetes Based on the list above the patient has:: >/=3 risk factors or Hx atherosclerotic disease - Troponin Troponin: </= normal limit - Score Heart Score - Total: 6 ED Treatment Course - LABORATORY CBC & Chemistry Diagram: 07/08/19 05:30 07/10/19 06:25 Medical Decision Making - Medical Decision Making 07/07/19 16:20 84M with hx afib on eliquis, CHF, CKD, CABG, recent admission for CKD w/ abdominal pain p/w lower extremity edema, orthopnea, pitting edema consistent with CHF exacerbation. Plan: CBC CMP BNP PT/INR PTT Troponin EKG CXR Lasix 40 mg Carvedilol 12.5 mg Nitroglycerin 4 sublingual Dispo: Admit Discharge - Discharge Information Problems reviewed: Yes Clinical Impression/Diagnosis: Shortness of breath Condition: Stable - Admission Yes - Follow up/Referral - Patient Discharge Instructions - Post Discharge Activity
[2019-07-07] MEDS ORDERED: FUROSEMIDE 40 MG/4 ML INJECTABLE VIAL IVPUSH ONE (15:31)
[2019-07-07] MEDS ORDERED: CARVEDILOL 3.125 MG TABLET (FP) PO ONE (15:32)
[2019-07-07] MEDS ORDERED: FUROSEMIDE 40 MG/4 ML INJECTABLE VIAL ONE (15:36)
[2019-07-07] MEDS ORDERED: CARVEDILOL 3.125 MG TABLET (FP) ONE (15:36)
[2019-07-07] MEDS ORDERED: NITROGLYCERIN SUBLINGUAL 1/150 0.4 MG TAB SL ONE (15:41)
--- NOTE | 2019-07-07 15:53 | PDOC ---
Attending Attestation - Resident Resident Name: LorenGurpreet - ED Attending Attestation I have performed the following: I have examined & evaluated the patient, The case was reviewed & discussed with the resident, I agree w/resident's findings & plan - HPI HPI: 07/07/19 15:48 84y/o M multiple medical problems including CHF, afib, CAD with recent admission for abdominal pain, discharged 3d ago, now returns with increasing shortness of breath/orthopnea/leg swelling in the setting of noncompliance with BP meds since discharge and elevated BP at home. no lopez/vision change/speech change/focal deficit. denies chest pain/pressure/palpitations. no fever/chills. - Physicial Exam PE: 07/07/19 15:49 hypertensive with slight tachypnea, normal O2 sat alert in stretcher, speaking 5-6 words at a time heart irregular with 2/6 ERIKA bibasilar crackles with scant expiratory wheeze abd benign 2+ pitting edema b/l neuro nonfocal - Critical Care Time Total Critical Care Time: 30 Critical Care Statement: The care of this patient involved high complexity decision making to prevent further life threatening deterioration of the patient 's condition and/or to evaluate & treat vital organ system(s) failure or risk of failure. - Medical Decision Making 07/07/19 15:51 84y/o M with volume overload and hypertension/pulmonary edema in setting of medication noncompliance, + pulmonary and peripheral edema on exam. Hypertensive urgency with acute pulmonary edema, r/o superimpsed infection. on monitor, nitro drip, lasix iv labs, ua ekg, cxr diurese, bp control admission Heart Score/ECG Review #1 ECG reviewed & interpreted by me at: 15:32 General ECG Interpretation: Normal Rate (afib with PVCs at 87), Normal Intervals (qtc 486), No acute ischemic changes (TWI with LVH) Compared to previous ECG there are: No significant change (c/w 06/29/19)
[2019-07-07] MEDS ORDERED: NITROGLYCERIN SUBLINGUAL 1/150 0.4 MG TAB ONE (15:58)
[2019-07-07 16:01] LABS: BASO % 1.1 % (0-2.0); EOS % 2.1 % (0-4.5); HEMATOCRIT 33.1 % (35.4-49); HEMOGLOBIN 10.5 GM/dL (11.7-16.9); MCH 25.4 pg (25.7-33.7); MCHC 31.7 g/dl (32.0-35.9); MEAN CELL VOLUME 80.1 fl (80-96); MEAN PLT VOLUME 8.6 fl (7.5-11.1); MONO % 11.6 % (3.8-10.2); NEUT % 63.2 % (42.8-82.8); PLATELET COUNT 193 K/MM3 (134-434); RBC 4.13 M/mm3 (4.00-5.60); RDW 17.5 % (11.9-15.9)
[2019-07-07] MEDS ORDERED: NITROGLYCERIN 2% OINTMENT - 1GM PACKET TD ONE ×2 (16:37→16:49)
[2019-07-07 16:44] LABS: INR 1.22 (0.83-1.09); PROTHROMBIN TIME (PATIENT) 14.4 SEC (9.7-13.0)
[2019-07-07 16:47] LABS: ACTIVATED PTT 36.6 SECONDS (25.2-36.5)
[2019-07-07 17:05] LABS: ALBUMIN 3.4 g/dl (3.4-5.0); BILIRUBIN,TOTAL 0.6 mg/dL (0.2-1); BLOOD UREA NITROGEN 27.7 mg/dL (7-18); CALCIUM 8.8 mg/dL (8.5-10.1); CREATININE 2.3 mg/dL (0.55-1.3); N-TERMINAL BNP 28828.6 pg/ml (5-450); TOT PROT 7.3 g/dl (6.4-8.2)
--- NOTE | 2019-07-07 18:36 | HP ---
Admitting History and Physical - Primary Care Physician PCP: Robert Daniels - Admission History of Present Illness: 84y/o M multiple medical problems including CHF, afib, CAD with recent admission for abdominal pain, discharged 3d ago, now returns with increasing shortness of breath/orthopnea/leg swelling in the setting of noncompliance with BP meds since discharge and elevated BP at home. no lopez/vision change/speech change/focal deficit. denies chest pain/pressure/palpitations. no fever/chills. - Past Medical History Cardiovascular: Yes: AFIB, CAD, CHF, HTN Pulmonary: Yes: Bronchitis Renal/: Yes: Renal Inusuff - Past Surgical History Past Surgical History: Yes: CABG, Stent - Smoking History Smoking history: Never smoked Have you smoked in the past 12 months: No - Alcohol/Substance Use Hx Alcohol Use: No Home Medications - Allergies Allergies/Adverse Reactions: Allergies Allergy/AdvReac Type Severity Reaction Status Date / Time No Known Allergies Allergy Verified 07/07/19 14:59 - Home Medications Home Medications: Ambulatory Orders Atorvastatin Ca [Lipitor] 40 mg PO HS #30 tablet 06/04/17 Apixaban [Eliquis -] 2.5 mg PO BID #60 tab 11/30/17 Isosorbide Mononitrate [Imdur -] 30 mg PO DAILY #30 tab.sr.24h 11/30/17 Carvedilol [Coreg -] 3.125 mg PO DAILY #60 tablet 09/06/18 Furosemide [Lasix -] 40 mg PO DAILY 30 Days #30 tablet 09/06/18 Spironolactone [Aldactone -] 25 mg PO DAILY 30 Days #30 tablet 09/06/18 Valsartan [Diovan] 160 mg PO DAILY 30 Days #30 tablet 09/06/18 hydrALAZINE HCL [Apresoline -] 50 mg PO TID 30 Days #90 tablet 09/06/18 Acetaminophen Oral Solution [Tylenol Oral Solution -] 650 mg PO Q6H PRN #30 soln.oral 07/03/19 Docusate Sodium [Colace -] 100 mg PO DAILY 30 Days capsule 07/03/19 Polyethylene Glycol 3350 [Miralax 119 gm Btl -] 17 gm PO DAILY #1 bottle Sennosides [Senna -] 2 tab PO BID #60 tablet 07/03/19 Physical Examination Vital Signs: Vital Signs Temperature 97.3 F L 07/07/19 14:59 Pulse Rate 74 07/07/19 16:45 Respiratory Rate 16 07/07/19 16:45 Blood Pressure 196/95 H 07/07/19 16:45 O2 Sat by Pulse Oximetry (%) 100 07/07/19 16:45 Constitutional: Yes: No Distress HENT: Yes: Atraumatic Neck: Yes: Supple Cardiovascular: Yes: Regular Rate and Rhythm Respiratory: Yes: Rhonchi Gastrointestinal: Yes: Normal Bowel Sounds Extremities: Yes: WNL Edema: Yes Edema: LLE: 1+, RLE: 1+ Peripheral Pulses WNL: Yes Neurological: Yes: Alert, Oriented Labs: CBC, BMP 07/07/19 15:28 07/07/19 15:28 Imaging - Results X-ray: Report Reviewed Problem List - Problems (1) Atrial fibrillation Assessment/Plan: on meds stable Code(s): I48.91 - UNSPECIFIED ATRIAL FIBRILLATION (2) Chronic kidney disease (CKD) Assessment/Plan: monitor cr renal consult Code(s): N18.9 - CHRONIC KIDNEY DISEASE, UNSPECIFIED Qualifiers: (3) HTN (hypertension) Assessment/Plan: on meds stable Code(s): I10 - ESSENTIAL (PRIMARY) HYPERTENSION (4) Hypertensive cardiomyopathy Code(s): I11.9 - HYPERTENSIVE HEART DISEASE WITHOUT HEART FAILURE; I42.9 - CARDIOMYOPATHY, UNSPECIFIED Qualifiers: (5) Systolic CHF Assessment/Plan: on iv diuretics cardio consult Code(s): I50.20 - UNSPECIFIED SYSTOLIC (CONGESTIVE) HEART FAILURE Assessment/Plan Laboratory Tests 07/07/19 07/07/19 07/07/19 15:28 15:28 15:28 WBC 5.0 RBC 4.13 Hgb 10.5 L Hct 33.1 L MCV 80.1 MCH 25.4 L MCHC 31.7 L RDW 17.5 H Plt Count 193 D MPV 8.6 Absolute Neuts (auto) 3.1 Neutrophils % 63.2 Lymphocytes % 22.0 D Monocytes % 11.6 H Eosinophils % 2.1 Basophils % 1.1 Nucleated RBC % 0 PT with INR 14.40 H INR 1.22 H PTT (Actin FS) 36.6 H Sodium 143 Potassium 4.0 Chloride 112 H Carbon Dioxide 21 Anion Gap 11 BUN 27.7 H Creatinine 2.3 H Est GFR (CKD-EPI)AfAm 28.93 Est GFR (CKD-EPI)NonAf 24.96 Random Glucose 102 Calcium 8.8 Total Bilirubin 0.6 AST 60 H ALT 41 Alkaline Phosphatase 160 H Creatine Kinase 176 Creatine Kinase Index 2.6 CK-MB (CK-2) 4.6 H Troponin I 0.96 H* B-Natriuretic Peptide 57294.6 H Total Protein 7.3 Albumin 3.4 Active Medications Generic Name Dose Route Start Last Admin Trade Name Freq PRN Reason Stop Dose Admin Apixaban 2.5 mg 07/07/19 22:00 07/09/19 10:25 Eliquis - PO 2.5 mg BID TORIN Administration Atorvastatin Calcium 40 mg 07/07/19 22:00 07/08/19 22:38 Lipitor - PO 40 mg HS TORIN Administration Carvedilol 6.25 mg 07/08/19 10:00 07/09/19 10:25 Coreg - PO 6.25 mg BID TORIN Administration Docusate Sodium 100 mg 07/08/19 10:00 07/09/19 10:25 Colace - PO 100 mg DAILY TORIN Administration Furosemide 40 mg 07/08/19 10:00 07/09/19 10:25 Lasix Injection - IVPUSH 40 mg DAILY TORIN Administration Hydralazine HCl 50 mg 07/07/19 22:00 07/09/19 13:52 Apresoline - PO 50 mg TID TORIN Administration Isosorbide Mononitrate 30 mg 07/08/19 10:00 07/09/19 10:25 Imdur - PO 30 mg DAILY TORIN Administration Polyethylene Glycol 17 gm 07/08/19 10:00 07/09/19 10:25 Miralax (For Daily Use) - PO 17 gm DAILY TORIN Administration Potassium Chloride 20 meq 07/09/19 20:00 K-Dur - PO 07/09/19 20:01 ONCE ONE Senna 2 tab 07/07/19 22:00 07/09/19 10:25 Senna - PO 2 tab BID TORIN Administration Spironolactone 25 mg 07/08/19 07:00 07/09/19 06:39 Aldactone - PO 25 mg ACBK TORIN Administration Valsartan 160 mg 07/08/19 10:00 12/18/19 10:25 Diovan - PO 160 mg DAILY TORIN Administration
[2019-07-07] MEDS ORDERED: APIXABAN 5 MG TABLET ONE (22:30)
[2019-07-07] MEDS ORDERED: hydrALAZINE HCL 25 MG TABLET (FP) ONE (22:31)
[2019-07-07] MEDS ORDERED: SENNOSIDES 8.6MG TABLET (FP) PO ONE (22:31)
[2019-07-07] MEDS ORDERED: ATORVASTATIN CA 40 MG TABLET (FP) ONE (22:31)
[2019-07-07] MEDS: SENNOSIDES 8.6MG TABLET (FP) PO SCH (22:48)
[2019-07-07] MEDS: ATORVASTATIN CA 40 MG TABLET (FP) PO SCH (22:48)
[2019-07-07] MEDS: hydrALAZINE HCL 50 MG TABLET (FP) PO SCH (22:48)
[2019-07-07] MEDS: APIXABAN 2.5 MG TABLET PO SCH (22:48)
[2019-07-08] MEDS: hydrALAZINE HCL 50 MG TABLET (FP) PO SCH ×3 (05:34→22:38)
[2019-07-08 05:53] VITALS: BMI 26.2
[2019-07-08] MEDS: SPIRONOLACTONE 25 MG TABLET (FP) PO SCH (06:04)
[2019-07-08 06:52] LABS: HEMATOCRIT 29.2 % (35.4-49); HEMOGLOBIN 9.4 GM/dL (11.7-16.9); MCH 25.7 pg (25.7-33.7); MCHC 32.3 g/dl (32.0-35.9); MEAN CELL VOLUME 79.6 fl (80-96); MEAN PLT VOLUME 8.6 fl (7.5-11.1); PLATELET COUNT 166 K/MM3 (134-434); RBC 3.67 M/mm3 (4.00-5.60); RDW 17.1 % (11.9-15.9)
[2019-07-08 07:22] LABS: ALBUMIN 2.7 g/dl (3.4-5.0); BILIRUBIN,TOTAL 0.6 mg/dL (0.2-1); BLOOD UREA NITROGEN 27.5 mg/dL (7-18); CALCIUM 8.4 mg/dL (8.5-10.1); CREATININE 2.3 mg/dL (0.55-1.3); POTASSIUM 3.3 mmol/L (3.5-5.1); TOT PROT 5.8 g/dl (6.4-8.2)
--- NOTE | 2019-07-08 08:12 | CON.CARD ---
Consult Consult Specialty:: cardiology Reason for Consultation:: SOB; HTN - History of Present Illness Chief Complaint: Pt A&Ox3; d/o earlier leg swelling (now minimal) and pain in lefgt big toe (denies gout); no chest pain or dyspnea. History of Present Illness: 84y/o M multiple medical problems including systolic CHF (moderately reduced LVEF on 08/2018 ECHO), afib, renal dysfunction, CAD (+ stress MIBI 2017-->?PCI) , with chronically elevated TNI since at least 2016 (as high as 1.6), hyperlipidemia, with recent admission for abdominal pain, discharged 3d ago, now returns with increasing shortness of breath/orthopnea/leg swelling in the setting of noncompliance with BP meds since discharge and elevated BP at home. no lopez/vision change/speech change/focal deficit. denies chest pain/pressure/ palpitations. no fever/chills. Pt was put on IV NTG and IV lasix in ER. - History Source History Provided By: Patient, Medical Record Limitations to Obtaining History: Poor Historian - Past Medical History Cardio/Vascular: Yes: AFIB, CAD, CHF (systolic ), HTN Pulmonary: Yes: Bronchitis Renal/: Yes: Renal Inusuff - Past Surgical History Past Surgical History: Yes: CABG, Stent - Alcohol/Substance Use Hx Alcohol Use: No - Smoking History Smoking history: Never smoked Have you smoked in the past 12 months: No - Social History Usual Living Arrangement: Alone Home Medications - Allergies Allergies/Adverse Reactions: Allergies Allergy/AdvReac Type Severity Reaction Status Date / Time No Known Allergies Allergy Verified 07/07/19 14:59 - Home Medications Home Medications: Ambulatory Orders Atorvastatin Ca [Lipitor] 40 mg PO HS #30 tablet 06/04/17 Apixaban [Eliquis -] 2.5 mg PO BID #60 tab 11/30/17 Isosorbide Mononitrate [Imdur -] 30 mg PO DAILY #30 tab.sr.24h 11/30/17 Carvedilol [Coreg -] 3.125 mg PO DAILY #60 tablet 09/06/18 Furosemide [Lasix -] 40 mg PO DAILY 30 Days #30 tablet 09/06/18 Spironolactone [Aldactone -] 25 mg PO DAILY 30 Days #30 tablet 09/06/18 Valsartan [Diovan] 160 mg PO DAILY 30 Days #30 tablet 09/06/18 hydrALAZINE HCL [Apresoline -] 50 mg PO TID 30 Days #90 tablet 09/06/18 Acetaminophen Oral Solution [Tylenol Oral Solution -] 650 mg PO Q6H PRN #30 soln.oral 07/03/19 Docusate Sodium [Colace -] 100 mg PO DAILY 30 Days capsule 07/03/19 Polyethylene Glycol 3350 [Miralax 119 gm Btl -] 17 gm PO DAILY #1 bottle Sennosides [Senna -] 2 tab PO BID #60 tablet 07/03/19 Family Medical History Family History: Denies Review of Systems - Review of Systems Constitutional: reports: Weakness Eyes: reports: No Symptoms HENT: reports: No Symptoms Neck: reports: No Symptoms Cardiovascular: reports: Shortness of Breath Respiratory: reports: SOB Gastrointestinal: reports: No Symptoms Genitourinary: reports: No Symptoms Breasts: reports: No Symptoms Reported Musculoskeletal: reports: Muscle Weakness Integumentary: reports: No Symptoms Neurological: reports: Weakness Endocrine: reports: No Symptoms Hematology/Lymphatic: reports: No Symptoms Psychiatric: reports: No Symptoms - Risk Factors Known Risk Factors: Yes: Age, Gender, Hypercholesterolemia, Hypertension, Other (systolic CHF) Vital Signs: Vital Signs Temperature 97.9 F 07/08/19 05:36 Pulse Rate 60 07/08/19 05:36 Respiratory Rate 20 07/08/19 05:36 Blood Pressure 163/64 07/08/19 05:36 O2 Sat by Pulse Oximetry (%) 97 07/07/19 22:45 Constitutional: Yes: Anxious Eyes: Yes: WNL HENT: Yes: WNL Neck: Yes: Supple Respiratory: Yes: Diminished Gastrointestinal: Yes: Soft Renal/: No: Anuria Cardiovascular: Yes: Bradycardia, Pulse Irregular JVD: Yes Carotid Bruit: No PMI: Displaced Heart Sounds: Yes: S1 (varies in intensity), S2 Murmur: Yes: Systolic Murmur, Grade 2 Musculoskeletal: Yes: Muscle Weakness Extremities: Yes: Cool Edema: No Peripheral Pulses WNL: Yes Integumentary: Yes: WNL Neurological: Yes: Alert, Oriented, Weakness Psychiatric: Yes: WNL - Other Data Labs, Other Data: CBC, BMP 07/08/19 05:30 07/08/19 05:30 INR, PTT INR 1.22 (0.83-1.09) H 07/07/19 15:28 Troponin, BNP 07/07/19 07/07/19 07/08/19 15:28 19:00 05:30 Troponin I 0.96 H* 0.90 H* 0.82 H* B-Natriuretic Peptide 52814.6 H Troponin, BNP 07/07/19 07/07/19 07/08/19 15:28 19:00 05:30 Troponin I 0.96 H* 0.90 H* 0.82 H* B-Natriuretic Peptide 07149.6 H Abnormal Lab Results 07/09/19 07/10/19 12:16 06:25 Potassium 3.4 L Chloride 111 H 113 H Anion Gap 7 L BUN 31.0 H 32.9 H Creatinine 2.7 H 2.8 H Calcium 8.3 L 8.3 L Alkaline Phosphatase 121 H Total Protein 6.0 L Albumin 2.8 L Imaging - Results Chest X-ray: Image Reviewed EKG: Image Reviewed (AF) Problem List - Problems (1) Shortness of breath Code(s): R06.02 - SHORTNESS OF BREATH (2) Hypokalemia Code(s): E87.6 - HYPOKALEMIA (3) Atrial fibrillation Assessment/Plan: On carvedilol and HR and BP control (and systolic CHF). On apisaban for anticoagulation. Code(s): I48.91 - UNSPECIFIED ATRIAL FIBRILLATION (4) Coronary artery disease Code(s): I25.10 - ATHSCL HEART DISEASE OF [place] CORONARY ARTERY W/O ANG PCTRS Qualifiers: (5) HTN (hypertension) Code(s): I10 - ESSENTIAL (PRIMARY) HYPERTENSION (6) Hx of CABG Code(s): Z95.1 - PRESENCE OF AORTOCORONARY BYPASS GRAFT (7) Hypertensive cardiomyopathy Code(s): I11.9 - HYPERTENSIVE HEART DISEASE WITHOUT HEART FAILURE; I42.9 - CARDIOMYOPATHY, UNSPECIFIED Qualifiers: (8) Moderate to severe pulmonary hypertension Code(s): I27.20 - PULMONARY HYPERTENSION, UNSPECIFIED (9) S/P coronary artery stent placement Code(s): Z95.5 - PRESENCE OF CORONARY ANGIOPLASTY IMPLANT AND GRAFT (10) Acute kidney injury Code(s): N17.9 - ACUTE KIDNEY FAILURE, UNSPECIFIED (11) Acute on chronic systolic and diastolic heart failure, NYHA class 2 Code(s): I50.43 - ACUTE ON CHRONIC COMBINED SYSTOLIC AND DIASTOLIC HRT FAIL
[2019-07-08] MEDS: ISOSORBIDE MONONITRATE 30 MG TAB.SR.24H (FP) PO SCH (09:45)
[2019-07-08] MEDS: APIXABAN 2.5 MG TABLET PO SCH ×2 (09:46→22:38)
[2019-07-08] MEDS: DOCUSATE SODIUM 100 MG CAPSULE (FP) PO SCH (09:46)
[2019-07-08] MEDS: VALSARTAN 160 MG TABLET (UD) PO SCH (09:46)
[2019-07-08] MEDS: SENNOSIDES 8.6MG TABLET (FP) PO SCH ×2 (09:46→22:38)
[2019-07-08] MEDS: CARVEDILOL 6.25 MG TABLET (FP) PO SCH ×2 (09:46→22:38)
[2019-07-08] MEDS: POLYETHYLENE GLYCOL 3350 119 GM BTL PO SCH (09:46)
[2019-07-08] MEDS: FUROSEMIDE 40 MG/4 ML INJECTABLE VIAL IVPUSH SCH (09:46)
--- NOTE | 2019-07-08 09:46 | EKG ---
Test Reason : Blood Pressure : / mmHG Vent. Rate : 087 BPM Atrial Rate : 073 BPM P-R Int : 000 ms QRS Dur : 098 ms QT Int : 404 ms P-R-T Axes : 000 000 182 degrees QTc Int : 486 ms ATRIAL FIBRILLATION WITH PREMATURE VENTRICULAR OR ABERRANTLY CONDUCTED COMPLEXES VOLTAGE CRITERIA FOR LEFT VENTRICULAR HYPERTROPHY INFERIOR INFARCT , AGE UNDETERMINED ABNORMAL ECG WHEN COMPARED WITH ECG OF 29-JUN-2019 05:23, NO SIGNIFICANT CHANGE WAS FOUND Confirmed by MD Hudson, Tacho ([id number]) on 07/08/2019 9:46:02 AM Referred By: Confirmed By:Tacho Treviño MD
[2019-07-08] MEDS ORDERED: CARVEDILOL 3.125 MG TABLET (FP) PO SCH (10:00)
[2019-07-08] MEDS ORDERED: CARVEDILOL 6.25 MG TABLET (FP) PO SCH (10:00)
[2019-07-08] MEDS ORDERED: POTASSIUM CHLORIDE ORAL LIQUID 20 MEQ/15 ML PO ONE (12:23)
--- NOTE | 2019-07-08 13:46 | CONSULT ---
Consult Consult Specialty:: Nephrology Reason for Consultation:: CKD - History of Present Illness Chief Complaint: shortness of breath History of Present Illness: Pt is an 84 year old male with pmhx of ckd, a-fib, chf, cabg, htn and hld who presents with shortness of breath. 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 he also complains of lower ext edema. He was just discharged. - History Source History Provided By: Patient - Past Medical History Cardio/Vascular: Yes: AFIB, CAD, CHF (systolic ), HTN Pulmonary: Yes: Bronchitis Renal/: Yes: Renal Inusuff - Past Surgical History Past Surgical History: Yes: CABG, Stent - Alcohol/Substance Use Hx Alcohol Use: No - Smoking History Smoking history: Never smoked Have you smoked in the past 12 months: No - Social History Usual Living Arrangement: Alone Home Medications - Allergies Allergies/Adverse Reactions: Allergies Allergy/AdvReac Type Severity Reaction Status Date / Time No Known Allergies Allergy Verified 07/07/19 14:59 - Home Medications Home Medications: Ambulatory Orders Atorvastatin Ca [Lipitor] 40 mg PO HS #30 tablet 06/04/17 Apixaban [Eliquis -] 2.5 mg PO BID #60 tab 11/30/17 Isosorbide Mononitrate [Imdur -] 30 mg PO DAILY #30 tab.sr.24h 11/30/17 Carvedilol [Coreg -] 3.125 mg PO DAILY #60 tablet 09/06/18 Furosemide [Lasix -] 40 mg PO DAILY 30 Days #30 tablet 09/06/18 Spironolactone [Aldactone -] 25 mg PO DAILY 30 Days #30 tablet 09/06/18 Valsartan [Diovan] 160 mg PO DAILY 30 Days #30 tablet 09/06/18 hydrALAZINE HCL [Apresoline -] 50 mg PO TID 30 Days #90 tablet 09/06/18 Acetaminophen Oral Solution [Tylenol Oral Solution -] 650 mg PO Q6H PRN #30 soln.oral 07/03/19 Docusate Sodium [Colace -] 100 mg PO DAILY 30 Days capsule 07/03/19 Polyethylene Glycol 3350 [Miralax 119 gm Btl -] 17 gm PO DAILY #1 bottle Sennosides [Senna -] 2 tab PO BID #60 tablet 07/03/19 Family Medical History Family History: Denies Review of Systems - Review of Systems Constitutional: reports: No Symptoms Eyes: reports: No Symptoms HENT: reports: No Symptoms Neck: reports: No Symptoms Cardiovascular: reports: Edema, Shortness of Breath Respiratory: reports: SOB Musculoskeletal: reports: No Symptoms Neurological: reports: No Symptoms Physical Exam Vital Signs: Vital Signs Temperature 98 F 07/08/19 09:00 Pulse Rate 78 07/08/19 09:00 Respiratory Rate 18 07/08/19 09:00 Blood Pressure 144/68 07/08/19 09:00 O2 Sat by Pulse Oximetry (%) 97 07/07/19 22:45 Constitutional: Yes: Calm Eyes: Yes: Conjunctiva Clear HENT: Yes: Atraumatic Cardiovascular: Yes: S1, S2 Respiratory: Yes: CTA Bilaterally Gastrointestinal: Yes: Normal Bowel Sounds, Soft Edema: Yes Edema: LLE: Trace, RLE: Trace Neurological: Yes: Oriented Psychiatric: Yes: Oriented Labs: CBC, BMP 07/08/19 05:30 07/08/19 05:30 Laboratory Tests 07/07/19 07/07/19 07/08/19 15:28 19:00 05:30 Potassium 3.3 L Creatinine 2.3 H 2.3 H Troponin I 0.96 H* 0.90 H* 0.82 H* Imaging - Results Chest X-ray: Report Reviewed Assessment/Plan Current Medications Generic Name Dose Route Start Last Admin Trade Name Freq PRN Reason Stop Dose Admin Apixaban 2.5 mg 07/07/19 22:00 07/08/19 09:46 Eliquis - PO 2.5 mg BID TORIN Administration Atorvastatin Calcium 40 mg 07/07/19 22:00 07/07/19 22:48 Lipitor - PO 40 mg HS TORIN Administration Carvedilol 6.25 mg 07/08/19 10:00 07/08/19 09:46 Coreg - PO 6.25 mg BID TORIN Administration Docusate Sodium 100 mg 07/08/19 10:00 07/08/19 09:46 Colace - PO 100 mg DAILY TORIN Administration Furosemide 40 mg 07/08/19 10:00 07/08/19 09:46 Lasix Injection - IVPUSH 40 mg DAILY TORIN Administration Hydralazine HCl 50 mg 07/07/19 22:00 07/08/19 13:09 Apresoline - PO 50 mg TID TORIN Administration Isosorbide Mononitrate 30 mg 07/08/19 10:00 07/08/19 09:45 Imdur - PO 30 mg DAILY TORIN Administration Polyethylene Glycol 17 gm 07/08/19 10:00 07/08/19 09:46 Miralax (For Daily Use) - PO 17 gm DAILY TORIN Administration Senna 2 tab 07/07/19 22:00 07/08/19 09:46 Senna - PO 2 tab BID TORIN Administration Spironolactone 25 mg 07/08/19 07:00 07/08/19 06:04 Aldactone - PO 25 mg ACBK TORIN Administration Valsartan 160 mg 07/08/19 10:00 07/08/19 09:46 Diovan - PO 160 mg DAILY TORIN Administration IMPRESSION -CKD -ABDOMINAL PAIN -CAD s/p CABG -AFIB on eliquis -MILD ANEMIA -DM -PERINEPHRIC STRANDING -HEPATIC CYSTS - dyspnea PLAN - cont lasix - replace potassium - cont aldacone - monitor renal function
--- NOTE | 2019-07-08 15:55 | PN ---
Progress Note, Physician - Current Medication List Current Medications: Active Medications Apixaban (Eliquis -) 2.5 mg PO BID [facility] Last Admin: 07/08/19 09:46 Dose: 2.5 mg Atorvastatin Calcium (Lipitor -) 40 mg PO HS [facility] Last Admin: 07/07/19 22:48 Dose: 40 mg Carvedilol (Coreg -) 6.25 mg PO BID [facility] Last Admin: 07/08/19 09:46 Dose: 6.25 mg Docusate Sodium (Colace -) 100 mg PO DAILY [facility] Last Admin: 07/08/19 09:46 Dose: 100 mg Furosemide (Lasix Injection -) 40 mg IVPUSH DAILY [facility] Last Admin: 07/08/19 09:46 Dose: 40 mg Hydralazine HCl (Apresoline -) 50 mg PO TID [facility] Last Admin: 07/08/19 13:09 Dose: 50 mg Isosorbide Mononitrate (Imdur -) 30 mg PO DAILY [facility] Last Admin: 07/08/19 09:45 Dose: 30 mg Polyethylene Glycol (Miralax (For Daily Use) -) 17 gm PO DAILY [facility] Last Admin: 07/08/19 09:46 Dose: 17 gm Senna (Senna -) 2 tab PO BID [facility] Last Admin: 07/08/19 09:46 Dose: 2 tab Spironolactone (Aldactone -) 25 mg PO ACBK [facility] Last Admin: 07/08/19 06:04 Dose: 25 mg Valsartan (Diovan -) 160 mg PO DAILY [facility] Last Admin: 07/08/19 09:46 Dose: 160 mg - Objective Vital Signs: Vital Signs Temperature 98.2 F 07/08/19 14:18 Pulse Rate 65 07/08/19 14:18 Respiratory Rate 18 07/08/19 14:18 Blood Pressure 143/75 07/08/19 14:18 O2 Sat by Pulse Oximetry (%) 97 07/08/19 09:00 Constitutional: Yes: No Distress HENT: Yes: Atraumatic Neck: Yes: Supple Cardiovascular: Yes: Regular Rate and Rhythm Respiratory: Yes: CTA Bilaterally Gastrointestinal: Yes: Normal Bowel Sounds Extremities: Yes: WNL Edema: Yes Edema: LLE: Trace, RLE: Trace Neurological: Yes: Alert, Oriented Labs: CBC, BMP 07/08/19 05:30 07/08/19 05:30 INR, PTT INR 1.22 (0.83-1.09) H 07/07/19 15:28 Problem List - Problems (1) Atrial fibrillation Assessment/Plan: on meds stable Code(s): I48.91 - UNSPECIFIED ATRIAL FIBRILLATION (2) Chronic kidney disease (CKD) Assessment/Plan: monitor cr renal consult Code(s): N18.9 - CHRONIC KIDNEY DISEASE, UNSPECIFIED Qualifiers: (3) HTN (hypertension) Assessment/Plan: on meds stable Code(s): I10 - ESSENTIAL (PRIMARY) HYPERTENSION (4) Hypertensive cardiomyopathy Code(s): I11.9 - HYPERTENSIVE HEART DISEASE WITHOUT HEART FAILURE; I42.9 - CARDIOMYOPATHY, UNSPECIFIED Qualifiers: (5) Systolic CHF Assessment/Plan: on iv diuretics cardio consult Code(s): I50.20 - UNSPECIFIED SYSTOLIC (CONGESTIVE) HEART FAILURE
[2019-07-08] MEDS: ATORVASTATIN CA 40 MG TABLET (FP) PO SCH (22:38)
[2019-07-09] MEDS: SPIRONOLACTONE 25 MG TABLET (FP) PO SCH (06:39)
[2019-07-09] MEDS: hydrALAZINE HCL 50 MG TABLET (FP) PO SCH ×3 (06:40→22:32)
[2019-07-09] MEDS: DOCUSATE SODIUM 100 MG CAPSULE (FP) PO SCH (10:25)
[2019-07-09] MEDS: ISOSORBIDE MONONITRATE 30 MG TAB.SR.24H (FP) PO SCH (10:25)
[2019-07-09] MEDS: APIXABAN 2.5 MG TABLET PO SCH ×2 (10:25→22:30)
[2019-07-09] MEDS: POLYETHYLENE GLYCOL 3350 119 GM BTL PO SCH (10:25)
[2019-07-09] MEDS: VALSARTAN 160 MG TABLET (UD) PO SCH (10:25)
[2019-07-09] MEDS: CARVEDILOL 6.25 MG TABLET (FP) PO SCH ×2 (10:25→22:31)
[2019-07-09] MEDS: SENNOSIDES 8.6MG TABLET (FP) PO SCH ×2 (10:25→22:33)
[2019-07-09] MEDS: FUROSEMIDE 40 MG/4 ML INJECTABLE VIAL IVPUSH SCH (10:25)
--- NOTE | 2019-07-09 11:27 | PN ---
Progress Note, Physician History of Present Illness: Pt seen and examined at bedside. He is awake and alert. He feels that his breathing is improved. - Current Medication List Current Medications: Active Medications Apixaban (Eliquis -) 2.5 mg PO BID [facility] Last Admin: 07/09/19 10:25 Dose: 2.5 mg Atorvastatin Calcium (Lipitor -) 40 mg PO HS [facility] Last Admin: 07/08/19 22:38 Dose: 40 mg Carvedilol (Coreg -) 6.25 mg PO BID [facility] Last Admin: 07/09/19 10:25 Dose: 6.25 mg Docusate Sodium (Colace -) 100 mg PO DAILY [facility] Last Admin: 07/09/19 10:25 Dose: 100 mg Furosemide (Lasix Injection -) 40 mg IVPUSH DAILY [facility] Last Admin: 07/09/19 10:25 Dose: 40 mg Hydralazine HCl (Apresoline -) 50 mg PO TID [facility] Last Admin: 07/09/19 06:40 Dose: 50 mg Isosorbide Mononitrate (Imdur -) 30 mg PO DAILY [facility] Last Admin: 07/09/19 10:25 Dose: 30 mg Polyethylene Glycol (Miralax (For Daily Use) -) 17 gm PO DAILY [facility] Last Admin: 07/09/19 10:25 Dose: 17 gm Senna (Senna -) 2 tab PO BID [facility] Last Admin: 07/09/19 10:25 Dose: 2 tab Spironolactone (Aldactone -) 25 mg PO ACBK [facility] Last Admin: 07/09/19 06:39 Dose: 25 mg Valsartan (Diovan -) 160 mg PO DAILY [facility] Last Admin: 07/09/19 10:25 Dose: 160 mg - Objective Vital Signs: Vital Signs Temperature 97.4 F L 07/09/19 05:00 Pulse Rate 56 L 07/09/19 05:00 Respiratory Rate 20 07/09/19 05:00 Blood Pressure 177/99 H 07/09/19 05:00 O2 Sat by Pulse Oximetry (%) 95 07/08/19 20:06 Constitutional: Yes: Calm Eyes: Yes: Conjunctiva Clear HENT: Yes: Atraumatic Neck: Yes: Supple Cardiovascular: Yes: S1, S2 Respiratory: Yes: CTA Bilaterally Gastrointestinal: Yes: Soft Genitourinary: Yes: WNL Musculoskeletal: Yes: WNL Edema: No Neurological: Yes: Oriented Psychiatric: Yes: Oriented Labs: CBC, BMP 07/08/19 05:30 07/08/19 05:30 INR, PTT INR 1.22 (0.83-1.09) H 07/07/19 15:28 Assessment/Plan Current Medications Generic Name Dose Route Start Last Admin Trade Name Manjinder PRN Reason Stop Dose Admin Apixaban 2.5 mg 07/07/19 22:00 07/09/19 10:25 Eliquis - PO 2.5 mg BID TORIN Administration Atorvastatin Calcium 40 mg 07/07/19 22:00 07/08/19 22:38 Lipitor - PO 40 mg HS [facility]ORIN Administration Carvedilol 6.25 mg 07/08/19 10:00 07/09/19 10:25 Coreg - PO 6.25 mg BID [facility]ORIN Administration Docusate Sodium 100 mg 07/08/19 10:00 07/09/19 10:25 Colace - PO 100 mg DAILY [facility]ORIN Administration Furosemide 40 mg 07/08/19 10:00 07/09/19 10:25 Lasix Injection - IVPUSH 40 mg DAILY [facility]ORIN Administration Hydralazine HCl 50 mg 07/07/19 22:00 07/09/19 06:40 Apresoline - PO 50 mg TID [facility]ORIN Administration Isosorbide Mononitrate 30 mg 07/08/19 10:00 07/09/19 10:25 Imdur - PO 30 mg DAILY [facility]IN Administration Polyethylene Glycol 17 gm 07/08/19 10:00 07/09/19 10:25 Miralax (For Daily Use) - PO 17 gm DAILY [facility]ORIN Administration Senna 2 tab 07/07/19 22:00 07/09/19 10:25 Senna - PO 2 tab BID [facility]ORIN Administration Spironolactone 25 mg 07/08/19 07:00 07/09/19 06:39 Aldactone - PO 25 mg ACBK [facility]ORIN Administration Valsartan 160 mg 07/08/19 10:00 07/09/19 10:25 Diovan - PO 160 mg DAILY [facility]ORIN Administration IMPRESSION -CKD -ABDOMINAL PAIN -CAD s/p CABG -AFIB on eliquis -MILD ANEMIA -DM -PERINEPHRIC STRANDING -HEPATIC CYSTS - dyspnea - hypokalemia PLAN - cont diuretics - check labs to evaluate lytes - cont aldacone - monitor renal function - volume status improved
[2019-07-09 13:08] LABS: CALCIUM 8.3 mg/dL (8.5-10.1); CREATININE 2.7 mg/dL (0.55-1.3); MAGNESIUM 2.1 mg/dL (1.8-2.4); POTASSIUM 3.4 mmol/L (3.5-5.1)
[2019-07-09] MEDS ORDERED: POTASSIUM CHLORIDE TABS 20 MEQ TABLET.ER (FP) PO ONE ×2 (13:43→20:00)
--- NOTE | 2019-07-09 17:19 | PN ---
Progress Note, Physician - Current Medication List Current Medications: Active Medications Apixaban (Eliquis -) 2.5 mg PO BID [facility] Last Admin: 07/09/19 10:25 Dose: 2.5 mg Atorvastatin Calcium (Lipitor -) 40 mg PO HS [facility] Last Admin: 07/08/19 22:38 Dose: 40 mg Carvedilol (Coreg -) 6.25 mg PO BID [facility] Last Admin: 07/09/19 10:25 Dose: 6.25 mg Docusate Sodium (Colace -) 100 mg PO DAILY [facility] Last Admin: 07/09/19 10:25 Dose: 100 mg Furosemide (Lasix Injection -) 40 mg IVPUSH DAILY [facility] Last Admin: 07/09/19 10:25 Dose: 40 mg Hydralazine HCl (Apresoline -) 50 mg PO TID [facility] Last Admin: 07/09/19 13:52 Dose: 50 mg Isosorbide Mononitrate (Imdur -) 30 mg PO DAILY [facility] Last Admin: 07/09/19 10:25 Dose: 30 mg Polyethylene Glycol (Miralax (For Daily Use) -) 17 gm PO DAILY [facility] Last Admin: 07/09/19 10:25 Dose: 17 gm Potassium Chloride (K-Dur -) 20 meq PO ONCE ONE Stop: 07/09/19 20:01 Senna (Senna -) 2 tab PO BID [facility] Last Admin: 07/09/19 10:25 Dose: 2 tab Spironolactone (Aldactone -) 25 mg PO ACBK [facility] Last Admin: 07/09/19 06:39 Dose: 25 mg Valsartan (Diovan -) 160 mg PO DAILY [facility] Last Admin: 07/09/19 10:25 Dose: 160 mg - Objective Vital Signs: Vital Signs Temperature 98.2 F 07/09/19 14:10 Pulse Rate 51 L 07/09/19 14:10 Respiratory Rate 20 07/09/19 14:10 Blood Pressure 134/68 07/09/19 14:10 O2 Sat by Pulse Oximetry (%) 95 07/09/19 09:00 Constitutional: Yes: No Distress HENT: Yes: Atraumatic Neck: Yes: Supple Cardiovascular: Yes: Regular Rate and Rhythm Respiratory: Yes: CTA Bilaterally Gastrointestinal: Yes: Normal Bowel Sounds Extremities: Yes: WNL Edema: No Peripheral Pulses WNL: Yes Neurological: Yes: Alert, Oriented Labs: CBC, BMP 07/08/19 05:30 07/09/19 12:16 INR, PTT INR 1.22 (0.83-1.09) H 07/07/19 15:28 Problem List - Problems (1) Atrial fibrillation Assessment/Plan: on meds stable Code(s): I48.91 - UNSPECIFIED ATRIAL FIBRILLATION (2) Chronic kidney disease (CKD) Assessment/Plan: monitor cr renal consult Code(s): N18.9 - CHRONIC KIDNEY DISEASE, UNSPECIFIED Qualifiers: (3) HTN (hypertension) Assessment/Plan: on meds stable Code(s): I10 - ESSENTIAL (PRIMARY) HYPERTENSION (4) Hypertensive cardiomyopathy Code(s): I11.9 - HYPERTENSIVE HEART DISEASE WITHOUT HEART FAILURE; I42.9 - CARDIOMYOPATHY, UNSPECIFIED Qualifiers: (5) Systolic CHF Code(s): I50.20 - UNSPECIFIED SYSTOLIC (CONGESTIVE) HEART FAILURE
[2019-07-09] MEDS ORDERED: diphenhydrAMINE HCL 25 MG CAPSULE (FP) PO ONE (22:00)
[2019-07-09] MEDS: ATORVASTATIN CA 40 MG TABLET (FP) PO SCH (22:31)
[2019-07-10] MEDS: hydrALAZINE HCL 50 MG TABLET (FP) PO SCH (05:53)
[2019-07-10] MEDS: SPIRONOLACTONE 25 MG TABLET (FP) PO SCH (05:59)
[2019-07-10 07:30] LABS: ALBUMIN 2.8 g/dl (3.4-5.0); BILIRUBIN,TOTAL 0.4 mg/dL (0.2-1); BLOOD UREA NITROGEN 32.9 mg/dL (7-18); CALCIUM 8.3 mg/dL (8.5-10.1); CREATININE 2.8 mg/dL (0.55-1.3); MAGNESIUM 2.4 mg/dL (1.8-2.4); POTASSIUM 3.9 mmol/L (3.5-5.1)
[2019-07-10] MEDS: FUROSEMIDE 40 MG/4 ML INJECTABLE VIAL IVPUSH SCH (09:42)
[2019-07-10] MEDS: VALSARTAN 160 MG TABLET (UD) PO SCH (09:43)
[2019-07-10] MEDS: CARVEDILOL 6.25 MG TABLET (FP) PO SCH (09:43)
[2019-07-10] MEDS: ISOSORBIDE MONONITRATE 30 MG TAB.SR.24H (FP) PO SCH (09:43)
[2019-07-10] MEDS: APIXABAN 2.5 MG TABLET PO SCH (09:43)
[2019-07-10] MEDS: POLYETHYLENE GLYCOL 3350 119 GM BTL PO SCH (09:53)
[2019-07-10] MEDS: SENNOSIDES 8.6MG TABLET (FP) PO SCH (09:54)
[2019-07-10] MEDS: DOCUSATE SODIUM 100 MG CAPSULE (FP) PO SCH (09:54)
[2019-07-10] MEDS ORDERED: hydrALAZINE HCL 25 MG TABLET (FP) PO ONE (12:26)
[2019-07-10 13:23] VITALS: TEMP 97.5
--- NOTE | 2019-07-10 15:23 | PN ---
Progress Note, Physician History of Present Illness: Pt seen and examined at bedside. He is awake and alert. He denies shortness of breath. - Current Medication List Current Medications: Active Medications Apixaban (Eliquis -) 2.5 mg PO BID [facility] Last Admin: 07/10/19 09:43 Dose: 2.5 mg Atorvastatin Calcium (Lipitor -) 40 mg PO HS [facility] Last Admin: 07/09/19 22:31 Dose: 40 mg Carvedilol (Coreg -) 3.125 mg PO BID [facility] Docusate Sodium (Colace -) 100 mg PO DAILY [facility] Last Admin: 07/10/19 09:54 Dose: Not Given Furosemide (Lasix Injection -) 40 mg IVPUSH DAILY [facility] Last Admin: 07/10/19 09:42 Dose: 40 mg Hydralazine HCl (Apresoline -) 150 mg PO BID [facility] Isosorbide Mononitrate (Imdur -) 30 mg PO DAILY [facility] Last Admin: 07/10/19 09:43 Dose: 30 mg Polyethylene Glycol (Miralax (For Daily Use) -) 17 gm PO DAILY [facility] Last Admin: 07/10/19 09:53 Dose: Not Given Senna (Senna -) 2 tab PO BID [facility] Last Admin: 07/10/19 09:54 Dose: Not Given Spironolactone (Aldactone -) 25 mg PO ACBK [facility] Last Admin: 07/10/19 05:59 Dose: 25 mg Valsartan (Diovan -) 160 mg PO DAILY [facility] Last Admin: 07/10/19 09:43 Dose: 160 mg - Objective Vital Signs: Vital Signs Temperature 97.5 F L 07/10/19 10:00 Pulse Rate 53 L 07/10/19 10:00 Respiratory Rate 20 07/10/19 10:00 Blood Pressure 149/53 L 07/10/19 13:00 O2 Sat by Pulse Oximetry (%) 96 07/10/19 09:00 Constitutional: Yes: Calm Eyes: Yes: Conjunctiva Clear HENT: Yes: Atraumatic Neck: Yes: Supple Cardiovascular: Yes: S1, S2 Respiratory: Yes: CTA Bilaterally Gastrointestinal: Yes: Soft Genitourinary: Yes: WNL Musculoskeletal: Yes: WNL Edema: No Neurological: Yes: Oriented Psychiatric: Yes: Oriented Labs: CBC, BMP 07/08/19 05:30 07/10/19 06:25 INR, PTT INR 1.22 (0.83-1.09) H 07/07/19 15:28 Assessment/Plan Current Medications Generic Name Dose Route Start Last Admin Trade Name Manjinder PRN Reason Stop Dose Admin Apixaban 2.5 mg 07/07/19 22:00 07/10/19 09:43 Eliquis - PO 2.5 mg BID [facility] Administration Atorvastatin Calcium 40 mg 07/07/19 22:00 07/09/19 22:31 Lipitor - PO 40 mg HS [facility] Administration Carvedilol 3.125 mg 07/10/19 22:00 Coreg - PO BID [facility] Docusate Sodium 100 mg 07/08/19 10:00 07/10/19 09:54 Colace - PO Not Given DAILY [facility] Furosemide 40 mg 07/08/19 10:00 07/10/19 09:42 Lasix Injection - IVPUSH 40 mg DAILY [facility] Administration Hydralazine HCl 150 mg 07/10/19 22:00 Apresoline - PO BID [facility] Isosorbide Mononitrate 30 mg 07/08/19 10:00 07/10/19 09:43 Imdur - PO 30 mg DAILY [facility] Administration Polyethylene Glycol 17 gm 07/08/19 10:00 07/10/19 09:53 Miralax (For Daily Use) - PO Not Given DAILY [facility] Senna 2 tab 07/07/19 22:00 07/10/19 09:54 Senna - PO Not Given BID [facility] Spironolactone 25 mg 07/08/19 07:00 07/10/19 05:59 Aldactone - PO 25 mg ACBK [facility] Administration Valsartan 160 mg 07/08/19 10:00 07/10/19 09:43 Diovan - PO 160 mg DAILY [facility] Administration IMPRESSION -CKD -ABDOMINAL PAIN -CAD s/p CABG -AFIB on eliquis -MILD ANEMIA -DM -PERINEPHRIC STRANDING -HEPATIC CYSTS - dyspnea - hypokalemia PLAN - switch to po lasix - volume status is improved - will need close outpt follow up - cont aldactone - low sodium diet - volume status improved, pt appears euvolemic
[2019-07-10 15:38] VITALS: BP 154/71; PULSE 71
--- NOTE | 2019-07-10 16:36 | DS ---
Physical Examination Vital Signs: Vital Signs Temperature 97.5 F L 07/10/19 10:00 Pulse Rate 71 07/10/19 14:00 Respiratory Rate 20 07/10/19 14:00 Blood Pressure 154/71 07/10/19 14:00 O2 Sat by Pulse Oximetry (%) 96 07/10/19 09:00 Constitutional: Yes: No Distress HENT: Yes: Atraumatic Neck: Yes: Supple Cardiovascular: Yes: Regular Rate and Rhythm Respiratory: Yes: CTA Bilaterally Gastrointestinal: Yes: Normal Bowel Sounds Musculoskeletal: Yes: WNL Extremities: Yes: WNL Neurological: Yes: Alert, Oriented Labs: CBC, BMP 07/08/19 05:30 07/10/19 06:25 Discharge Summary Problems reviewed: Yes Reason For Visit: SYSTOLIC CHF , ELEVATED TROPONIN LEVEL Current Active Problems Acute on chronic systolic and diastolic heart failure, NYHA class 2 (Acute) Shortness of breath (Acute) Condition: Stable - Instructions Referrals: Shannan Orozco MD [Non Staff, Medical] - - Home Medications Comprehensive Discharge Medication List: Ambulatory Orders Atorvastatin Ca [Lipitor] 40 mg PO HS #30 tablet 06/04/17 Apixaban [Eliquis -] 2.5 mg PO BID #60 tab 11/30/17 Isosorbide Mononitrate [Imdur -] 30 mg PO DAILY #30 tab.sr.24h 11/30/17 Carvedilol [Coreg -] 3.125 mg PO DAILY #60 tablet 09/06/18 Furosemide [Lasix -] 40 mg PO DAILY 30 Days #30 tablet 09/06/18 Spironolactone [Aldactone -] 25 mg PO DAILY 30 Days #30 tablet 09/06/18 Valsartan [Diovan] 160 mg PO DAILY 30 Days #30 tablet 09/06/18 hydrALAZINE HCL [Apresoline -] 50 mg PO TID 30 Days #90 tablet 09/06/18 Acetaminophen Oral Solution [Tylenol Oral Solution -] 650 mg PO Q6H PRN #30 soln.oral 07/03/19 Docusate Sodium [Colace -] 100 mg PO DAILY 30 Days capsule 07/03/19 Polyethylene Glycol 3350 [Miralax 119 gm Btl -] 17 gm PO DAILY #1 bottle Sennosides [Senna -] 2 tab PO BID #60 tablet 07/03/19 Furosemide [Lasix -] 40 mg PO BID@0600,1400 #60 tablet 07/10/19
[2019-07-10] MEDS ORDERED: CARVEDILOL 3.125 MG TABLET (FP) PO SCH (22:00)
[2019-07-10] MEDS ORDERED: hydrALAZINE HCL 50 MG TABLET (FP) PO SCH (22:00)
[2019-07-11] MEDS ORDERED: FUROSEMIDE 40 MG TABLET (FP) PO SCH (06:00)
== END 2019-07-10 17:34 | disposition home or self-care (01) | DRG 291 ==
LOC: JER 14:56 → JERBED 17:39 → J4W 23:30
PROVIDERS: ADMIT Internal Medicine; ATTEND Internal Medicine
DX: I13.0 Hypertensive heart and chronic kidney disease with heart failure and stage 1 through stage 4 chronic kidney disease, or unspecified chronic kidney disease (principal); I50.43 Acute on chronic combined systolic (congestive) and diastolic (congestive) heart failure; J81.1 Chronic pulmonary edema; N17.9 Acute kidney failure, unspecified; I43 Cardiomyopathy in diseases classified elsewhere; N18.9 Chronic kidney disease, unspecified; I48.91 Unspecified atrial fibrillation; E78.5 Hyperlipidemia, unspecified; I25.10 Atherosclerotic heart disease of native coronary artery without angina pectoris; I16.0 Hypertensive urgency; J40 Bronchitis, not specified as acute or chronic; E87.6 Hypokalemia; I27.20 Pulmonary hypertension, unspecified; K76.89 Other specified diseases of liver; D64.9 Anemia, unspecified; Z95.1 Presence of aortocoronary bypass graft; Z95.5 Presence of coronary angioplasty implant and graft
CPT/HCPCS: 36415; 71046-TC-FY; 80048; 80053; 82550; 82553; 83735; 83880; 84439; 84443; 84484; 85025; 85027; 85610; 85730; 93005; 93010; 99285-25

== ENCOUNTER 2020-02-16 17:40 | Inpatient (IN) | payer OTHER ==
--- NOTE | 2020-02-16 18:00 | PDOC ---
History of Present Illness - General Stated Complaint: FALL Time Seen by Provider: 02/16/20 18:00 - History of Present Illness Initial Comments: 02/16/20 18:01 84yo M with PMH of HTN, CABG, CHF, A-Fib, CAD, YFN BIBA from [facility] on rough and ready for left blurry eye and coughing up blood. Patient smoke greek, translated by his friend. Roseline ([phone]). According to him, around 7:30 pm yesterday, he went to the toilet, fell dizziness, and fell on the sink, hitting the left side of his eyes. He denies LOC, abnormal gait; however, he had a episode of nausea followed the unwitnessed fall. Then patient went back to bed. Patient is on Apixiban 2.5 mg Daily. Today, he reported left eye blurry, and sniffup blood from his sinuses. This is the reason why he was sent here. ROS: Constitutional: no fever, +chills HEENT: no throat pain, no dysphagia, +left eye blurry Cardiovascular: no chest pain, no palpitations Respiratory: no cough, shortness of breath Gastrointestinal: no abdominal pain, no diarrhea Genitourinary: no dysuria, no hematuria Musculoskeletal: no myalgia, no arthralgia Skin: no rash, no itching Neurologic: no headache, no weakness Psych: no agitation, no anxiety PE: -General: Awake, alert, in no acute distress, Head: No signs of trauma Eyes: EOMI, left eye with subconjuntival hemorrage, ENT: Dry mucus membranes Neck: Normal ROM, supple Lungs: clear bilateral , no wheezing, no rales. Cardio: Regular rhythm, S1 and S2 present, heart surgery scar Abdomen: Soft, nontender Extremities: Distal pulses present Skin: Warm, Dry, normal turgor Neurologic: Cranial nerves II through XII grossly intact. Normal speech 02/17/20 00:18 Past History - Medical History Allergies/Adverse Reactions: Allergies Allergy/AdvReac Type Severity Reaction Status Date / Time No Known Allergies Allergy Verified 07/07/19 14:59 Home Medications: Ambulatory Orders Atorvastatin Ca [Lipitor] 40 mg PO HS #30 tablet 06/04/17 Apixaban [Eliquis -] 2.5 mg PO BID #60 tab 11/30/17 Isosorbide Mononitrate [Imdur -] 30 mg PO DAILY #30 tab.sr.24h 11/30/17 Carvedilol [Coreg -] 3.125 mg PO DAILY #60 tablet 09/06/18 Furosemide [Lasix -] 40 mg PO DAILY 30 Days #30 tablet 09/06/18 Spironolactone [Aldactone -] 25 mg PO DAILY 30 Days #30 tablet 09/06/18 Acetaminophen Oral Solution [Tylenol Oral Solution -] 650 mg PO Q6H PRN #30 soln.oral 07/03/19 Docusate Sodium [Colace -] 100 mg PO DAILY 30 Days capsule 07/03/19 Polyethylene Glycol 3350 [Miralax 119 gm Btl -] 17 gm PO DAILY #1 bottle 07/03/19 Sennosides [Senna -] 2 tab PO BID #60 tablet 07/03/19 Lisinopril [Prinivil] 5 mg PO DAILY #30 tablet 10/26/19 Anemia: No Asthma: No Cancer: No Cardiac Disorders: Yes (afib - on eliquis) CVA: No COPD: No CHF: Yes Dementia: No Diabetes: Yes GI Disorders: No Disorders: No HTN: Yes Hypercholesterolemia: Yes Liver Disease: No Seizures: No Thyroid Disease: No - Surgical History Abdominal Surgery: No Appendectomy: No Cardiac Surgery: Yes (S/P CABG 06/2017) Cholecystectomy: No Lung Surgery: No Neurologic Surgery: No Orthopedic Surgery: No - Immunization History Immunization Up to Date: Yes - Psycho-Social/Smoking History Smoking History: Never smoked Have you smoked in the past 12 months: No ED Treatment Course - LABORATORY CBC & Chemistry Diagram: 02/16/20 21:00 02/16/20 21:00 Medical Decision Making - Medical Decision Making Imaging: CT head scan revealed no intracranial pathology, noticed blood in the maxillary sinus, need facial bone CT scan. Ordered CT head, facial bone CT, chest xray, cervical CT Lab: showed No increase in WBC, chronic kidney injury. ELEVATED TROP 0.59 EKG was compared to the previous EKG, not a lot of changes. Afib rate , irregular, vent rate 48 , ST and T wave abnormality, consistently with previous EKG CT head showed no acute intrapathology, rec facial bone CT. Facial bone CT showed nondisplaced minimal orbital floor fx. cervical CT is neg for fx. panel monitor MBMD was sent Need to repeat Troponin after 4 hours, and NEW EKG 02/16/20 23:10 02/16/20 23:12 02/17/20 00:18 sign out was given to night team. Discharge - Discharge Information Problems reviewed: Yes Clinical Impression/Diagnosis: Syncope Qualifiers: Syncope type: unspecified Qualified Code(s): R55 - Syncope and collapse Facial contusion Qualifiers: Encounter type: initial encounter Qualified Code(s): S00.83XA - Contusion of other part of head, initial encounter Condition: Good - Admission Yes - Follow up/Referral Referrals: Elroy Hull MD [Primary Care Provider] - - Patient Discharge Instructions - Post Discharge Activity
[2020-02-16 18:09] VITALS: BMI 30.4
--- NOTE | 2020-02-16 19:29 | PDOC ---
Attending Attestation - Resident Resident Name: Dmitry Bowman - ED Attending Attestation I have performed the following: I have examined & evaluated the patient, The case was reviewed & discussed with the resident, I agree w/resident's findings & plan - HPI HPI: 02/16/20 20:10 see resident hpi - Physicial Exam PE: 02/16/20 20:10 see resident exam - Medical Decision Making 02/16/20 20:11 85-year-old male status post fall, poor recollection of events with bruising to the left periorbital region EKG shows A. fib with slow ventricular response with a ventricular rate of [address] and T wave abnormalities similar to previous Plan for CT scan of the head facial bones and cervical spine as well as syncope work-up with observation admission due to patient's age and comorbidities As well as anticoagulation status 02/16/20 20:14 Discharge - Discharge Information Problems reviewed: Yes Clinical Impression/Diagnosis: Syncope, Facial contusion - Follow up/Referral Referrals: Elroy Hull MD [Primary Care Provider] - - Patient Discharge Instructions - Post Discharge Activity
[2020-02-16 21:28] LABS: HEMATOCRIT 42.5 % (35.4-49); HEMOGLOBIN 13.7 GM/dL (11.7-16.9); MCH 27.4 pg (25.7-33.7); MCHC 32.2 g/dl (32.0-35.9); MEAN PLT VOLUME 8.1 fl (7.5-11.1); PLATELET COUNT 139 K/MM3 (134-434); RDW 15.5 % (11.9-15.9); WHITE BLOOD COUNT 4.5 K/mm3 (4.0-10.0)
[2020-02-16 21:37] LABS: INR 1.25 (0.83-1.09); PROTHROMBIN TIME (PATIENT) 14.8 SEC (9.7-13.0)
[2020-02-16 21:39] LABS: ACTIVATED PTT 30.6 SECONDS (25.2-36.5)
[2020-02-16 22:00] LABS: ALBUMIN 3.9 g/dl (3.4-5.0); BILIRUBIN,TOTAL 0.7 mg/dL (0.2-1); BLOOD UREA NITROGEN 52.5 mg/dL (7-18); CALCIUM 9.1 mg/dL (8.5-10.1); CREATININE 2.7 mg/dL (0.55-1.3); MAGNESIUM 2.5 mg/dL (1.8-2.4); POTASSIUM 4.7 mmol/L (3.5-5.1); TOT PROT 8.2 g/dl (6.4-8.2)
--- NOTE | 2020-02-17 01:21 | PN ---
Teaching Attending Note Name of Resident: Purvi Mendoza ATTENDING PHYSICIAN STATEMENT I saw and evaluated the patient. I reviewed the resident's note and discussed the case with the resident. I agree with the resident's findings and plan as documented. SUBJECTIVE: 84 years old M with PMH of HTN, CABG, CHF, A-Fib, CAD,CKD was BIBA s/p fall and possible syncopal episode. patient doesn't remember the event but. As per friend he was feeling dizziness when he went to use toilet and fell on the sink hitting left side of his eye. After that he had blurry vision on his left eye. He denies chest pain, SOB, abd pain, nausea, vomiting fever OBJECTIVE: Last Vital Signs Temp Pulse Resp BP Pulse Ox 98.8 F 51 L 19 166/99 96 02/16/20 17:41 02/16/20 20:30 02/16/20 20:30 02/16/20 20:30 02/16/20 20:30 GENERAL: Awake, alert, and fully oriented, not in distress HEAD: Normal with no signs of trauma. EYES: Pupils equal, round and reactive to light, extraocular movements intact,left eye conjunctiva hemorrhage, tenderness above left eye bruising - left periorbital region EARS, NOSE, THROAT: Oropharynx clear without exudates. Moist mucous membranes. NECK: No JVD, or masses. LUNGS: Breath sounds equal, clear to auscultation bilaterally. No wheezes, and no crackles. No accessory muscle use. HEART: RRR normal S1 and S2 ABDOMEN: Soft, not distended, tender on RLQ, no rigidity, guarding MUSCULOSKELETAL: Normal range of motion at all joints. No CVA tenderness. UPPER EXTREMITIES: 2+ pulses, warm, well-perfused. No peripheral edema. LOWER EXTREMITIES: 2+ pulses, warm, well-perfused. No calf tenderness. No peripheral edema. NEUROLOGICAL: Cranial nerves II-XII intact. Normal speech. PSYCHIATRIC: Cooperative. Good eye contact. Appropriate mood and affect. SKIN: Warm, dry, normal turgor, no rashes or lesions noted. CT head scan revealed no intracranial pathology, noticed blood in the maxillary sinus Laboratory Results - last 24 hr 02/16/20 02/16/20 02/16/20 21:00 21:00 21:00 WBC 4.5 RBC 5.00 Hgb 13.7 Hct 42.5 D MCV 85.0 MCH 27.4 D MCHC 32.2 RDW 15.5 Plt Count 139 D MPV 8.1 PT with INR 14.80 H INR 1.25 H PTT (Actin FS) 30.6 Sodium 140 Potassium 4.7 Chloride 108 H Carbon Dioxide 23 Anion Gap 9 BUN 52.5 H Creatinine 2.7 H Est GFR (CKD-EPI)AfAm 23.66 Est GFR (CKD-EPI)NonAf 20.42 Random Glucose 102 Calcium 9.1 Magnesium 2.5 H Total Bilirubin 0.7 AST 24 ALT 20 Alkaline Phosphatase 134 H Creatine Kinase Troponin I Total Protein 8.2 Albumin 3.9 02/16/20 21:00 WBC RBC Hgb Hct MCV MCH MCHC RDW Plt Count MPV PT with INR INR PTT (Actin FS) Sodium Potassium Chloride Carbon Dioxide Anion Gap BUN Creatinine Est GFR (CKD-EPI)AfAm Est GFR (CKD-EPI)NonAf Random Glucose Calcium Magnesium Total Bilirubin AST ALT Alkaline Phosphatase Creatine Kinase 102 Troponin I 0.65 H* Total Protein Albumin ASSESSMENT AND PLAN S/p fall Left orbit floor fracture Possible syncopal episode - due to underlying Arrhythmias - ? Afib with Slow ventricular rate possible due to medication induced Coreg vs Orthostasis Elevated troponin likely due to CKD r/o ACS ( less likley ) CKD HTN, CABG, CHF, A-Fib, CAD, CKD Observation to tele serial cardiac enzymes, EKG HOld coreg and other divina blockers ' check orthostasis can cont Eliquis gentle hydration Mg phos, CPK cardiology consult ECHO opthalomology eval gentle hydration HTN- eleavted resume home ACEI add hydralazine of needed goal 140/90 may resume rest of the home medications
[2020-02-17] MEDS ORDERED: SODIUM CHLORIDE 1,000 ML IV SCH (02:00)
[2020-02-17] MEDS ORDERED: LISINOPRIL 5 MG TABLET (FP) PO ONE (02:31)
[2020-02-17] MEDS ORDERED: LISINOPRIL 5 MG TABLET (FP) ONE ×2 (02:46→09:06)
--- NOTE | 2020-02-17 03:01 | PDOC ---
*Physical Exam - Vital Signs Last Vital Signs Temp Pulse Resp BP Pulse Ox 98.8 F 51 L 19 166/99 96 02/16/20 17:41 02/16/20 20:30 02/16/20 20:30 02/16/20 20:30 02/16/20 20:30 ED Treatment Course - LABORATORY CBC & Chemistry Diagram: 02/16/20 21:00 02/16/20 21:00 - ADDITIONAL ORDERS Additional order review: Laboratory Results 02/16/20 02/16/20 02/16/20 21:00 21:00 21:00 PT with INR 14.80 H INR 1.25 H PTT (Actin FS) 30.6 Sodium 140 Potassium 4.7 Chloride 108 H Carbon Dioxide 23 Anion Gap 9 BUN 52.5 H Creatinine 2.7 H Est GFR (CKD-EPI)AfAm 23.66 Est GFR (CKD-EPI)NonAf 20.42 Random Glucose 102 Calcium 9.1 Magnesium 2.5 H Total Bilirubin 0.7 AST 24 ALT 20 Alkaline Phosphatase 134 H Creatine Kinase 102 Troponin I 0.65 H* Total Protein 8.2 Albumin 3.9 02/16/20 21:00 RBC 5.00 MCV 85.0 MCHC 32.2 RDW 15.5 MPV 8.1 - Medications Given in the ED: ED Medications Discontinued Medications Generic Name Dose Route Start Last Admin Trade Name Freq PRN Reason Stop Dose Admin Lisinopril 5 mg 02/17/20 02:31 02/17/20 02:49 Prinivil PO 02/17/20 02:32 5 mg ONCE ONE Administration Medical Decision Making - Medical Decision Making Pt signed out to me by Dr. Bowman Pending repeat EKG and trop; to be admitted for syncope EKG: Resolution of T wave inversion in V3. Afib with bradycardia repeat trop 0.62 Disposition Admit Discharge - Discharge Information Problems reviewed: Yes Clinical Impression/Diagnosis: Syncope Qualifiers: Syncope type: unspecified Qualified Code(s): R55 - Syncope and collapse Facial contusion Qualifiers: Encounter type: initial encounter Qualified Code(s): S00.83XA - Contusion of other part of head, initial encounter Condition: Stable - Admission Yes - Follow up/Referral - Patient Discharge Instructions - Post Discharge Activity
[2020-02-17] MEDS ORDERED: PANTOPRAZOLE 40 MG TABLET PO ONE (03:15)
[2020-02-17] MEDS ORDERED: PANTOPRAZOLE 40 MG TABLET ONE (04:50)
--- NOTE | 2020-02-17 04:58 | HP ---
CHIEF COMPLAINT: "blurry vision in the L eye and blood from L eye" PCP: Dr. Elroy Hull HISTORY OF PRESENT ILLNESS: 85 yo M with PMH of HFrEF (last TTE 08/2018 mildly reduced EF), AFib (on eliquis), CAD s/p CABG, CKD stage 4, HTN, and HLD presenting to the [facility] ED with "blurry vision in the L eye and blood from L eye" after a fall on Sunday evening at his retirement ([facility]). Pt reports using the toilet yesterday evening. Consequently, he felt lightheaded + dizziness when standing up and fell on the sink, hitting the periorbital region of his L eye. Pt denies unsteadiness or abnormal gait, LOC, palpitations, CP, SOB, confusion before or after the fall, lower extremity weakness, nausea/vomiting, constipation, or diarrhea. After this episode, the patient went back to sleep but woke up with bleeding from his sinuses - endorsing blood from his L eye - as well as blurry vision in his L eye. This prompted the pt to be BIBA to the [facility] ED. ER course was notable for: (1) CT head showing no intracranial pathology, small amount of fluid, likely blood, in L maxillary sinus; CT facial bone showing nondisplaced minimal to mild fracture of L orbital floor; CT cervical spine showing no cervical pathology or fractures (2) Elevated Troponin (0.65) (3) EKG showing AFib with slow ventricular rate; T wave inversion in V3 with resolution on follow up EKG Recent Travel: none PAST MEDICAL HISTORY: -as in HPI; COVID + during previous admission in September/October PAST SURGICAL HISTORY: CABG (as above) Social History: Pt lives at [facility]. Previously admitted with Smoking: Denies Alcohol: Denies Drugs: Denies Allergies No Known Allergies Allergy (Verified 07/07/19 14:59) HOME MEDICATIONS: Home Medications Medication Instructions Recorded Atorvastatin Ca [Lipitor] 40 mg PO HS #30 tablet 06/04/17 Apixaban [Eliquis -] 2.5 mg PO BID #60 tab 11/30/17 Isosorbide Mononitrate [Imdur -] 30 mg PO DAILY #30 tab.sr.24h 11/30/17 Carvedilol [Coreg -] 3.125 mg PO DAILY #60 tablet 09/06/18 Furosemide [Lasix -] 40 mg PO DAILY 30 Days #30 tablet 09/06/18 Spironolactone [Aldactone -] 25 mg PO DAILY 30 Days #30 tablet 09/06/18 Acetaminophen Oral Solution 650 mg PO Q6H PRN #30 soln.oral 07/03/19 [Tylenol Oral Solution -] Docusate Sodium [Colace -] 100 mg PO DAILY 30 Days capsule 07/03/19 Polyethylene Glycol 3350 [Miralax 17 gm PO DAILY #1 bottle 07/03/19 119 gm Btl -] Sennosides [Senna -] 2 tab PO BID #60 tablet 07/03/19 Lisinopril [Prinivil] 5 mg PO DAILY #30 tablet 10/26/19 REVIEW OF SYSTEMS As per HPI. PHYSICAL EXAMINATION Vital Signs - 24 hr 02/16/20 02/16/20 02/17/20 17:41 20:30 03:07 Temperature 98.8 F 97.0 F L Pulse Rate 50 L Pulse Rate [ 51 L 58 L Left Radial] Respiratory 19 19 18 Rate Blood Pressure 135/67 Blood Pressure 166/99 185/105 H [Right Arm] O2 Sat by Pulse 100 96 99 Oximetry (%) 02/17/20 03:30 Temperature Pulse Rate Pulse Rate [ Left Radial] Respiratory Rate Blood Pressure Blood Pressure [Right Arm] O2 Sat by Pulse 99 Oximetry (%) GENERAL: Awake, alert, and fully oriented, in no acute distress VS: orthostatic vital taken - 181/94 supine; 161/95 seated; + for orthostatic change HEAD: periorbital ecchymosis around L eye (mostly medial and inferior to L eye). EYES: PERRLA, EOMI, conjuntival injection in lateral aspect of L eye EARS, NOSE, THROAT: Oropharynx clear without exudates. Moist mucous membranes. NECK: Normal range of motion, supple. Trachea midline. LUNGS: Breath sounds equal, clear to auscultation bilaterally. No wheezes, and no crackles. No accessory muscle use. HEART: bradycardic and irregular rhythm, normal S1 and S2 without murmur, rub or gallop. ABDOMEN: Soft, nontender, not distended, normoactive bowel sounds, no guarding, no rebound, no masses. MUSCULOSKELETAL: pt moving all extremities spontaneously and equally. UPPER EXTREMITIES: 2+ pulses, warm, well-perfused. No peripheral edema. LOWER EXTREMITIES: 2+ pulses, warm, well-perfused. No peripheral edema. NEUROLOGICAL: Cranial nerves II-XII grossly intact. Normal speech. PSYCHIATRIC: Cooperative. Good eye contact. SKIN: Warm, dry, normal turgor, no rashes or lesions noted, normal capillary refill. Laboratory Results - last 24 hr 02/16/20 02/16/20 02/16/20 21:00 21:00 21:00 WBC 4.5 RBC 5.00 Hgb 13.7 Hct 42.5 D MCV 85.0 MCH 27.4 D MCHC 32.2 RDW 15.5 Plt Count 139 D MPV 8.1 PT with INR 14.80 H INR 1.25 H PTT (Actin FS) 30.6 Sodium 140 Potassium 4.7 Chloride 108 H Carbon Dioxide 23 Anion Gap 9 BUN 52.5 H Creatinine 2.7 H Est GFR (CKD-EPI)AfAm 23.66 Est GFR (CKD-EPI)NonAf 20.42 Random Glucose 102 Calcium 9.1 Magnesium 2.5 H Total Bilirubin 0.7 AST 24 ALT 20 Alkaline Phosphatase 134 H Creatine Kinase Troponin I Total Protein 8.2 Albumin 3.9 02/16/20 02/17/20 21:00 00:05 WBC RBC Hgb Hct MCV MCH MCHC RDW Plt Count MPV PT with INR INR PTT (Actin FS) Sodium Potassium Chloride Carbon Dioxide Anion Gap BUN Creatinine Est GFR (CKD-EPI)AfAm Est GFR (CKD-EPI)NonAf Random Glucose Calcium Magnesium Total Bilirubin AST ALT Alkaline Phosphatase Creatine Kinase 102 Troponin I 0.65 H* 0.62 H* Total Protein Albumin ASSESSMENT/PLAN: 85 yo M with PMH of HFrEF (last TTE 08/2018 mildly reduced EF), AFib (on eliquis), CAD s/p CABG, CKD stage 4, HTN, and HLD being admitted s/p fall for possible syncopal episode and L orbit floor fracture. #Possible syncopal episode (Afib with slow ventricular rate possibly due to medication induced coreg vs orthostasis) - Cardiology consulted; appreciate recs - Echo - Hold coreg and any divina blockers - Check orthostatic vitals - gentle IVF hydration, NS @ 75 cc/hr - f/u CMP, Mg, Phos #Trauma to L Eye Orbital fracture Blurry vision L eye - Please order an optho consult during the day; no coverage overnight - PO tylenol for mild-moderate pain - Check for worsening/improvement of vision in L eye - Check CPK; s/p fall #Elevated Troponin Likely 2/2 to CKD vs r/o ACS (less likely) 0.65 in ED, downtrending to 0.65 -trend troponins #hx of CKD pt's Cr is at baseline (2.5-2.7) - continue to monitor pt's renal function #hx of HTN Pt hypertensive to 180s systolic in ED - restart home antihypertensives - re-started home privinil for now; reconcile other medications as could not overnight - consider hydralizine if needed - BP goal of 140 systolic #hx of AFib - hold coreg (as it may be possible precipitating factor for syncope) - c/w home eliquis 2.5 mg po BID # DVT Ppx - continue home eliquis #FEN - F - NS @ 75 cc/hr - E - follow CMP; replete lytes PRN - N - Low Na diet #Disposition: admit to telemetry Visit type - Medication Review Med list reviewed for High Risk Meds patients 65 and older: Yes - Emergency Visit Emergency Visit: Yes ED Registration Date: 02/16/20 Care time: The patient presented to the Emergency Department on the above date and was hospitalized for further evaluation of their emergent condition. - New Patient This patient is new to me today: Yes Date on this admission: 02/17/20 - Critical Care Critical Care patient: No ATTENDING PHYSICIAN STATEMENT I saw and evaluated the patient. I reviewed the resident's note and discussed the case with the resident. I agree with the resident's findings and plan as documented. SUBJECTIVE: OBJECTIVE: ASSESSMENT AND PLAN:
[2020-02-17 06:46] LABS: HEMATOCRIT 37.8 % (35.4-49); HEMOGLOBIN 12.3 GM/dL (11.7-16.9); MCH 27.5 pg (25.7-33.7); MCHC 32.6 g/dl (32.0-35.9); MEAN CELL VOLUME 84.2 fl (80-96); MEAN PLT VOLUME 8.1 fl (7.5-11.1); PLATELET COUNT 131 K/MM3 (134-434); RBC 4.49 M/mm3 (4.00-5.60); RDW 15.2 % (11.9-15.9); WHITE BLOOD COUNT 3.9 K/mm3 (4.0-10.0)
[2020-02-17] MEDS ORDERED: ACETAMINOPHEN 325 MG TABLET (FP) PO PRN (06:46)
[2020-02-17 07:10] LABS: ALBUMIN 3.4 g/dl (3.4-5.0); BILIRUBIN,TOTAL 0.6 mg/dL (0.2-1); BLOOD UREA NITROGEN 47.7 mg/dL (7-18); CALCIUM 9.1 mg/dL (8.5-10.1); CREATININE 2.5 mg/dL (0.55-1.3); MAGNESIUM 2.2 mg/dL (1.8-2.4); PHOSPHOROUS 3.4 mg/dL (2.5-4.9); POTASSIUM 4.1 mmol/L (3.5-5.1)
[2020-02-17] MEDS ORDERED: amLODIPine BESYLATE 5 MG TABLET (FP) PO ONE (09:02)
[2020-02-17] MEDS ORDERED: APIXABAN 2.5 MG TABLET ONE (09:06)
--- NOTE | 2020-02-17 09:12 | EKG ---
Test Reason : Blood Pressure : / mmHG Vent. Rate : 042 BPM Atrial Rate : 326 BPM P-R Int : 000 ms QRS Dur : 100 ms QT Int : 480 ms P-R-T Axes : 000 012 183 degrees QTc Int : 400 ms ATRIAL FIBRILLATION WITH SLOW VENTRICULAR RESPONSE INFERIOR INFARCT (CITED ON OR BEFORE 07-JUL-2019) T WAVE ABNORMALITY, CONSIDER LATERAL ISCHEMIA ABNORMAL ECG WHEN COMPARED WITH ECG OF 17-FEB-2020 01:04, NO SIGNIFICANT CHANGE WAS FOUND Confirmed by MD SHARA, PEGGY ([id number]) on 02/17/2020 9:11:56 AM Referred By: Confirmed By:PEGGY OLMEDO MD
--- NOTE | 2020-02-17 09:14 | EKG ---
Test Reason : Blood Pressure : / mmHG Vent. Rate : 046 BPM Atrial Rate : 048 BPM P-R Int : 000 ms QRS Dur : 102 ms QT Int : 466 ms P-R-T Axes : 000 032 192 degrees QTc Int : 407 ms ATRIAL FIBRILLATION WITH SLOW VENTRICULAR RESPONSE MINIMAL VOLTAGE CRITERIA FOR LVH, MAY BE NORMAL VARIANT POSSIBLE INFERIOR INFARCT (CITED ON OR BEFORE 07-JUL-2019) ABNORMAL ECG WHEN COMPARED WITH ECG OF 25-OCT-2019 14:58, QT HAS SHORTENED Confirmed by MD SHARA, PEGGY ([id number]) on 02/17/2020 9:13:52 AM Referred By: Confirmed By:PEGGY OLMEDO MD
--- NOTE | 2020-02-17 09:15 | EKG ---
Test Reason : Blood Pressure : / mmHG Vent. Rate : 048 BPM Atrial Rate : 220 BPM P-R Int : 000 ms QRS Dur : 104 ms QT Int : 488 ms P-R-T Axes : 000 023 202 degrees QTc Int : 435 ms ATRIAL FIBRILLATION WITH SLOW VENTRICULAR RESPONSE POSSIBLE INFERIOR INFARCT (CITED ON OR BEFORE 07-JUL-2019) ABNORMAL ECG WHEN COMPARED WITH ECG OF 25-OCT-2019 14:58, T WAVE INVERSION LESS EVIDENT IN INFERIOR LEADS QT HAS SHORTENED Confirmed by MD SHARA, PEGGY ([id number]) on 02/17/2020 9:15:03 AM Referred By: Confirmed By:PEGGY OLMEDO MD
[2020-02-17] MEDS ORDERED: LISINOPRIL 5 MG TABLET (FP) PO SCH (10:00)
[2020-02-17] MEDS ORDERED: APIXABAN 2.5 MG TABLET PO SCH (10:00)
--- NOTE | 2020-02-17 12:49 | CON.CARD ---
Consult Consult Specialty:: cardiology Reason for Consultation:: ?syncope - History of Present Illness History of Present Illness: Mr. 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 patient doesn't remember the event but. As per friend he was feeling dizziness when he went to use toilet and fell on the sink hitting left side of his eye. After that he had blurry vision on his left eye. Noted to have elevated BP. He denies chest pain, SOB, abd pain, nausea, vomiting fever - History Source History Provided By: Patient, Medical Record - Past Medical History Cardio/Vascular: Yes: AFIB, CAD, CHF (systolic ), HTN Pulmonary: Yes: Bronchitis Renal/: Yes: Renal Inusuff - Past Surgical History Past Surgical History: Yes: CABG, Stent - Alcohol/Substance Use Hx Alcohol Use: No - Smoking History Smoking history: Never smoked Have you smoked in the past 12 months: No - Social History Usual Living Arrangement: Alone Home Medications - Allergies Allergies/Adverse Reactions: Allergies Allergy/AdvReac Type Severity Reaction Status Date / Time No Known Allergies Allergy Verified 07/07/19 14:59 - Home Medications Home Medications: Ambulatory Orders Atorvastatin Ca [Lipitor] 40 mg PO HS #30 tablet 06/04/17 Apixaban [Eliquis -] 2.5 mg PO BID #60 tab 11/30/17 Isosorbide Mononitrate [Imdur -] 30 mg PO DAILY #30 tab.sr.24h 11/30/17 Carvedilol [Coreg -] 3.125 mg PO DAILY #60 tablet 09/06/18 Furosemide [Lasix -] 40 mg PO DAILY 30 Days #30 tablet 09/06/18 Spironolactone [Aldactone -] 25 mg PO DAILY 30 Days #30 tablet 09/06/18 Acetaminophen Oral Solution [Tylenol Oral Solution -] 650 mg PO Q6H PRN #30 soln.oral 07/03/19 Docusate Sodium [Colace -] 100 mg PO DAILY 30 Days capsule 07/03/19 Polyethylene Glycol 3350 [Miralax 119 gm Btl -] 17 gm PO DAILY #1 bottle 07/03/19 Sennosides [Senna -] 2 tab PO BID #60 tablet 07/03/19 Lisinopril [Prinivil] 5 mg PO DAILY #30 tablet 10/26/19 Vital Signs: Vital Signs Temperature 97.8 F 02/17/20 07:00 Pulse Rate 46 L 02/17/20 07:31 Respiratory Rate 14 02/17/20 07:31 Blood Pressure 189/91 H 02/17/20 07:31 O2 Sat by Pulse Oximetry (%) 100 02/17/20 07:31 - Other Data Labs, Other Data: CBC, BMP 02/17/20 06:12 02/17/20 06:12 INR, PTT INR 1.25 (0.83-1.09) H 02/16/20 21:00 Troponin, BNP 02/16/20 02/17/20 21:00 00:05 Troponin I 0.65 H* 0.62 H* Troponin, BNP 02/16/20 02/17/20 21:00 00:05 Troponin I 0.65 H* 0.62 H* Assessment/Plan 85 yo man PMHx COVID positive in September,, [facility], systolic CHF: moderately reduced LVEF; AF; chronically elevated TNI since at least 2016; HTN; CKD; HLD; depression,now admitted for ? syncope. Plan: ECHO for LVEF, wall motion, valve status.
[2020-02-17] MEDS ORDERED: ISOSORBIDE MONONITRATE 30 MG TAB.SR.24H (FP) PO SCH (13:00)
[2020-02-17 13:43] VITALS: BP 179/92; PULSE 56; TEMP 98
[2020-02-17] MEDS ORDERED: hydrALAZINE HCL 10 MG TABLET PO SCH (14:00)
--- NOTE | 2020-02-17 14:04 | ECHO ---
Version: 1 Name: CELIO ODEN Exam: Adult Echocardiogram Study Date: 02/17/2020, 12:06 PM Age: 85 Years MMode/2D Measurements & Calculations IVSd: 2.16 cm LVIDs: 3.7 cm LVIDd: 5.2 cm LVPWd: 1.16 cm LAV (MOD-bp): 92.0 ml ACS: 2.20 cm Ao root diam: 3.7 cm LVOT diam: 2.11 cm LA dimension: 4.2 cm Doppler Measurements & Calculations MV E max marcel: 67.9 cm/sec MVA(VTI): 2.7 cm MV mean P.93 mmHg MV V2 max: 85.5 cm/sec MV max P.9 mmHg MR max P.8 mmHg Ao max P.8 mmHg KAYLEE(I,D): 2.8 cm Ao mean P.8 mmHg LV V1 mean: 63.0 cm/sec Ao V2 max: 138.1 cm/sec LV V1 mean P.05 mmHg AI P1/2t: 1813 msec TR max marcel: 261.6 cm/sec TR max P.7 mmHg Procedure The study was technically limited with all images being suboptimal in quality. Left Ventricle The left ventricle is grossly normal size. There is moderate concentric left ventricular hypertrophy . Ejection Fraction = 55%. The transmitral spectral Doppler flow pattern is suggestive of impaired LV relaxation. Right Ventricle The right ventricle is normal in size and function. Atria The left atrium is mildly dilated. The right atrium is mildly dilated. Mitral Valve There is mild mitral annular calcification. There is mild mitral regurgitation. Tricuspid Valve The tricuspid valve is not well visualized, but is grossly normal. There is mild tricuspid regurgita tion. Aortic Valve There is mild to moderate aortic sclerosis.;. Pulmonic Valve The pulmonic valve is not well visualized. Great Vessels The aortic root is normal size. Normal aortic arch, descending and ascending aorta. Pericardium/Pleura There is no pericardial effusion. Summary Statements The study was technically limited with all images being suboptimal in quality. The left ventricle is grossly normal size. There is moderate concentric left ventricular hypertrophy. Ejection Fraction = 55%. The transmitral spectral Doppler flow pattern is suggestive of impaired LV relaxation. The right ventricle is normal in size and function. The left atrium is mildly dilated. The right atrium is mildly dilated. There is mild mitral annular calcification. There is mild mitral regurgitation. The tricuspid valve is not well visualized, but is grossly normal. There is mild tricuspid regurgitation. There is mild to moderate aortic sclerosis.; The pulmonic valve is not well visualized. The aortic root is normal size. Normal aortic arch, descending and ascending aorta There is no pericardial effusion. Sachin Umanzor 02/17/2020, 2:03 PM Ordering Physician: Purvi Bazan Referring Physician: PURVI BAZAN Performed By: MYRNA PIERCE
--- NOTE | 2020-02-17 14:09 | CONSULT ---
Consultation: REQUESTING PROVIDER: CONSULT REQUEST: We have been asked to medically evaluate this patient for (Acute on chronic renal failure). HISTORY OF PRESENT ILLNESS: 85 yo M, pmh of HFrEF (last TTE 08/2018 mildly reduced EF), AFib (on eliquis), CAD s/p CABG, CKD stage 4, HTN, and HLD presents for blurry vision on left eye after a fall on Sunday evening at his fdc ([facility]). Pt felt lightheaded and dizziness when standing up and fell on the sink, hitting the periorbital region of his L eye. After this episode, the patient went back to sleep but woke up with bleeding from his sinuses - endorsing blood from his L eye - as well as blurry vision in his L eye. Upon admission he was found to have a nondisplaced minimal to mild fracture of L orbital floor on CAT scan of the face along with elevated troponin and AFib with slow ventricular rate; TWI V3 on EKG. Pt denies unsteadiness or abnormal gait, LOC, palpitations, CP, SOB, confusion before or after the fall, lower extremity weakness, nausea/vomiting, constipation, or diarrhea. Recent Travel: none PAST MEDICAL HISTORY: -as in HPI; COVID + during previous admission in September/October PAST SURGICAL HISTORY: CABG (as above) Social History: Pt lives at [facility]. Previously admitted with Smoking: Denies Alcohol: Denies Drugs: Denies Allergies No Known Allergies Allergy (Verified 07/07/19 14:59) PHYSICAL EXAMINATION Vital Signs - 24 hr 02/16/20 02/16/20 02/17/20 17:41 20:30 03:07 Temperature 98.8 F 97.0 F L Pulse Rate 50 L Pulse Rate [ 51 L 58 L Left Radial] Respiratory 19 19 18 Rate Blood Pressure 135/67 Blood Pressure 166/99 185/105 H [Right Arm] O2 Sat by Pulse 100 96 99 Oximetry (%) 02/17/20 02/17/20 02/17/20 03:30 07:00 07:31 Temperature 97.8 F Pulse Rate Pulse Rate [ 38 L 46 L Left Radial] Respiratory 19 14 Rate Blood Pressure Blood Pressure 179/93 H 189/91 H [Right Arm] O2 Sat by Pulse 99 100 100 Oximetry (%) 02/17/20 13:42 Temperature 98.0 F Pulse Rate Pulse Rate [ 56 L Left Radial] Respiratory 19 Rate Blood Pressure Blood Pressure 179/92 H [Right Arm] O2 Sat by Pulse 100 Oximetry (%) GENERAL: Awake, alert, and fully oriented, in no acute distress HEAD: periorbital ecchymosis around L eye (mostly medial and inferior to L eye). EYES: PERRLA, EOMI, conjuntival injection in lateral aspect of L eye NECK: supple LUNGS: Breath sounds equal, clear to auscultation bilaterally. No wheezes, and no crackles. HEART: bradycardic and irregular rhythm, normal S1 and S2 without murmur, rub or gallop. ABDOMEN: Soft, nontender, not distended, normoactive bowel sounds MUSCULOSKELETAL: pt moving all extremities spontaneously and equally. LOWER EXTREMITIES: 2+ pulses, warm, well-perfused. No peripheral edema. NEUROLOGICAL: Normal speech. PSYCHIATRIC: Cooperative. Good eye contact. SKIN: Warm, dry, normal turgor, no rashes or lesions noted, normal capillary refill. Laboratory Results - last 24 hr 02/16/20 02/16/20 02/16/20 21:00 21:00 21:00 WBC 4.5 RBC 5.00 Hgb 13.7 Hct 42.5 D MCV 85.0 MCH 27.4 D MCHC 32.2 RDW 15.5 Plt Count 139 D MPV 8.1 PT with INR 14.80 H INR 1.25 H PTT (Actin FS) 30.6 Sodium 140 Potassium 4.7 Chloride 108 H Carbon Dioxide 23 Anion Gap 9 BUN 52.5 H Creatinine 2.7 H Est GFR (CKD-EPI)AfAm 23.66 Est GFR (CKD-EPI)NonAf 20.42 Random Glucose 102 Calcium 9.1 Phosphorus Magnesium 2.5 H Total Bilirubin 0.7 AST 24 ALT 20 Alkaline Phosphatase 134 H Creatine Kinase Troponin I Total Protein 8.2 Albumin 3.9 02/16/20 02/17/20 02/17/20 21:00 00:05 06:12 WBC 3.9 L RBC 4.49 Hgb 12.3 Hct 37.8 MCV 84.2 MCH 27.5 MCHC 32.6 RDW 15.2 Plt Count 131 L MPV 8.1 PT with INR INR PTT (Actin FS) Sodium Potassium Chloride Carbon Dioxide Anion Gap BUN Creatinine Est GFR (CKD-EPI)AfAm Est GFR (CKD-EPI)NonAf Random Glucose Calcium Phosphorus Magnesium Total Bilirubin AST ALT Alkaline Phosphatase Creatine Kinase 102 Troponin I 0.65 H* 0.62 H* Total Protein Albumin 02/17/20 06:12 WBC RBC Hgb Hct MCV MCH MCHC RDW Plt Count MPV PT with INR INR PTT (Actin FS) Sodium 142 Potassium 4.1 Chloride 112 H Carbon Dioxide 22 Anion Gap 7 L BUN 47.7 H Creatinine 2.5 H Est GFR (CKD-EPI)AfAm 25.97 Est GFR (CKD-EPI)NonAf 22.41 Random Glucose 86 Calcium 9.1 Phosphorus 3.4 Magnesium 2.2 Total Bilirubin 0.6 AST 23 ALT 18 Alkaline Phosphatase 114 Creatine Kinase Troponin I Total Protein 7.0 Albumin 3.4 Active Medications Generic Name Dose Route Start Last Admin Trade Name Freq PRN Reason Stop Dose Admin Acetaminophen 650 mg 02/17/20 06:46 Tylenol - PO Q6H PRN Fever Or Pain Apixaban 2.5 mg 02/17/20 10:00 02/17/20 09:08 Eliquis - PO 2.5 mg BID TORIN Administration Hydralazine HCl 10 mg 02/17/20 14:00 Apresoline - PO TID TORIN Isosorbide Mononitrate 30 mg 02/17/20 13:00 Imdur - PO DAILY TORIN Lisinopril 5 mg 02/17/20 10:00 02/17/20 09:08 Prinivil PO 5 mg DAILY TORIN Administration ASSESSMENT/PLAN: 85 yo M, pmh of HFrEF (last TTE 08/2018 mildly reduced EF), AFib (on eliquis), CAD s/p CABG, CKD stage 4, HTN, and HLD presents for blurry vision on left eye after a fall on Sunday evening at his fdc ([facility]) being admitted s/p fall for possible syncopal episode and L orbit floor fracture on CT Impressions: Hypertensive Urgency Acute on Chronic Renal failure CKD stage 4 Left orbital Fx BradyCardia HFrEF A-Fib CAD s/p CABG HTN HLD Plan Creatinine trending down, now at baseline Cont to monitor Hold IVF in the setting of elevated BP Tight blood pressure control maintain SBP <140 Hold beta blockers or AV divina blockades Dispo: We will continue to follow the patient. Thank you for this consultative opportunity. Visit type - Medication Review Med list reviewed for High Risk Meds patients 65 and older: Yes - Emergency Visit Emergency Visit: Yes ED Registration Date: 02/16/20 Care time: The patient presented to the Emergency Department on the above date and was hospitalized for further evaluation of their emergent condition. - New Patient This patient is new to me today: No - Critical Care Critical Care patient: No ATTENDING PHYSICIAN STATEMENT I saw and evaluated the patient. I reviewed the resident's note and discussed the case with the resident. I agree with the resident's findings and plan as documented. SUBJECTIVE: OBJECTIVE: ASSESSMENT AND PLAN:
--- NOTE | 2020-02-17 14:42 | PN ---
Teaching Attending Note Name of Resident: Leobardo Reina ATTENDING PHYSICIAN STATEMENT I saw and evaluated the patient. I reviewed the resident's note and discussed the case with the resident. I agree with the resident's findings and plan as documented. Nephrology Pt is an 85 year old male with pmhx of chf, a-fib, cad, ckd, htn, hld who presents with left eye pain after a fall. 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 He is awake and alert. He has pain when he moves his eye. He denies chest pain or palpitations. pmhx chf a-fib ckd. htn hld ros eye paibn nkda family hx non contrib social denies etoh or smoking Current Medications Generic Name Dose Route Start Last Admin Trade Name Freq PRN Reason Stop Dose Admin Acetaminophen 650 mg 02/17/20 06:46 Tylenol - PO Q6H PRN Fever Or Pain Apixaban 2.5 mg 02/17/20 10:00 02/17/20 09:08 Eliquis - PO 2.5 mg BID TORIN Administration Hydralazine HCl 10 mg 02/17/20 14:00 Apresoline - PO TID TORIN Isosorbide Mononitrate 30 mg 02/17/20 13:00 Imdur - PO DAILY TORIN Lisinopril 5 mg 02/17/20 10:00 02/17/20 09:08 Prinivil PO 5 mg DAILY TORIN Administration Laboratory Tests 10/24/19 10/25/19 10/26/19 06:05 10:45 06:05 Creatinine 2.2 H 2.6 H 2.5 H Troponin I 02/16/20 02/17/20 02/17/20 21:00 00:05 06:12 Creatinine 2.7 H 2.5 H Troponin I 0.62 H* cardio s1s2 pulm clear heent conjunctival bleed pulm cleat gi soft ext neg edema Impression: Hypertensive Urgency CKD Left orbital Fx BradyCardia HFrEF A-Fib CAD s/p CABG HTN HLD Plan - cont to monitor renal function - stull installer stable - can add hydralazine for bp - avoid agents that affect rate - discussed with medical team - will follow
== END 2020-02-17 13:44 | disposition short-term general hospital (02) | DRG 86 ==
LOC: JER 17:40 → JERBED 22:29
PROVIDERS: ADMIT Internal Medicine; ATTEND Family Medicine
DX: S02.85XA Fracture of orbit, unspecified, initial encounter for closed fracture (principal); N18.4 Chronic kidney disease, stage 4 (severe); I13.0 Hypertensive heart and chronic kidney disease with heart failure and stage 1 through stage 4 chronic kidney disease, or unspecified chronic kidney disease; I50.20 Unspecified systolic (congestive) heart failure; R55 Syncope and collapse; I48.91 Unspecified atrial fibrillation; I25.10 Atherosclerotic heart disease of native coronary artery without angina pectoris; Z95.1 Presence of aortocoronary bypass graft; I16.0 Hypertensive urgency; E78.5 Hyperlipidemia, unspecified; R00.1 Bradycardia, unspecified; S06.9X0A Unspecified intracranial injury without loss of consciousness, initial encounter; X58.XXXA Exposure to other specified factors, initial encounter; Y93.9 Activity, unspecified; Y92.89 Other specified places as the place of occurrence of the external cause; Y99.9 Unspecified external cause status
CPT/HCPCS: 36415; 70450-TC; 70486-TC; 71045-TC-FY; 72125-TC; 80053; 80061; 82550; 83721; 83735; 84100; 84439; 84443; 84484; 85027; 85610; 85730; 93005; 93010; 93306-TC; 99285-25; U0003